=== PATIENT | female | born 1945 | race Caucasian/White ===

== ENCOUNTER 2017-05-06 11:13 | Emergency (ER) | payer BC, MEDICARE ==
--- NOTE | 2017-05-06 11:38 | ER Document Report ---
ED Medical Screen (RME) - General TRAVEL OUTSIDE OF THE [place] IN LAST 30 DAYS: No <RUSLAN CABRERA - Last Filed: 05/06/17 11:38> <TAMIKA LARA - Last Filed: 05/06/17 14:17> - General Chief Complaint: Breathing Difficulty Stated Complaint: SHORTNESS OF BREATH Time Seen by Provider: 05/06/17 11:29 Notes: 71-year-old female with a known history of COPD who presents with dyspnea. Note patient is not oxygen dependent at home. Patient presents with a room air sat of 80%, wheezing, dyspnea with gradual onset over 2-3 days and some increased cough. Denies any change in the color of her sputum. No fever, chills or sweats. No other modifying factors, no other associated symptoms, no other provocative or palliative factors. No active chest pain. (TAMIKA LARA) - Related Data Allergies/Adverse Reactions: No Known Allergies Allergy (Unverified 05/06/17 11:14) Past Medical History - Social History Frequency of alcohol use: None Drug Abuse: None Renal/ Medical History: Denies: Hx Peritoneal Dialysis <RUSLAN CABRERA - Last Filed: 05/06/17 11:38> - General Information source: Patient - Social History Cigarette use (# per day): Yes Family history: Reviewed & Not Pertinent Pulmonary Medical History: Reports: Hx COPD <TAMIKA LARA - Last Filed: 05/06/17 14:17> Review of Systems <RUSLAN CABRERA - Last Filed: 05/06/17 11:38> <TAMIKA LARA - Last Filed: 05/06/17 14:17> - Review of Systems Notes: Review of systems as in history of present illness otherwise negative (TAMIKA LARA) Physical Exam <RUSLAN CABRERA - Last Filed: 05/06/17 11:38> <TAMIKA LARA - Last Filed: 05/06/17 14:17> - Vital signs Vitals: Temp Pulse Resp BP Pulse Ox 98.4 F 99 24 H 115/74 88 L 05/06/17 11:20 05/06/17 11:20 05/06/17 11:20 05/06/17 11:20 05/06/17 11:20 - Notes Notes: General: Well-developed HEENT: NC/AT, PERRL. No pharyngeal injection. Neck: Supple, no JVD. Chest: Coarse, mildly diminished with slight end expiratory wheezing Cardiac: Regularate and rhythm. no audible murmur. Abdomen:, Nondistended, no guarding rigidity or rebound. Nontender. Back: CVAT, unremarkable. Motor: Normal tone and power. Neurologic: Alert, nonfocal. Skin: Rashes petechiae or purpura. Extremeties: Well perfused, no significant edema. (TAMIKA LARA) Course <RUSLAN CABRERA - Last Filed: 05/06/17 11:38> - Laboratory Result Diagrams: 05/06/17 11:52 05/06/17 11:52 <TAMIKA LARA - Last Filed: 05/06/17 14:17> - Re-evaluation Re-evalutation: Elderly female with a known history of COPD who continues to used to smoke who presents with likely COPD exacerbation, I would be concerned over the potential for underlying pneumonia. She was initially seen in triage, received laboratory evaluation as ordered, bronchodilators and empiric ceftriaxone. Labs reviewed, CBC unremarkable, chemistries unremarkable. Chest x-ray shows no acute pneumonia. Patient had marked improvement with bronchodilators, received IV steroids in triage. At this point she has no evidence of pneumonia, has no change in the color or consistency of your sputum I think this is less likely bacterial bronchitis. Will treat with bronchodilators at home, 5 day course of steroids, outpatient follow-up. Her hypoxia is improved and her room air saturation is 96 %. (TAMIKA LARA) - Vital Signs Vital signs: Temp Pulse Resp BP Pulse Ox 98.4 F 99 28 H 121/69 97 05/06/17 11:20 05/06/17 11:20 05/06/17 13:00 05/06/17 12:12 05/06/17 13:00 - Laboratory Laboratory results interpreted by ca: 05/06/17 05/06/17 11:52 11:52 Hgb 16.9 H Hct 50.0 H Monocytes % 14.0 H Carbon Dioxide 31 H AST 39 H Doctor's Discharge <RUSLAN CABRERA - Last Filed: 05/06/17 11:38> <TAMIKA LARA - Last Filed: 05/06/17 14:17> - Discharge Clinical Impression: COPD exacerbation Condition: Good Disposition: HOME, SELF-CARE Instructions: Chronic Obstructive Lung Disease ([facility]) Prescriptions: Albuterol Sulfate [Proair HFA Inhalation Aerosol 8.5 gm MDI] 2 puff IH Q4H PRN # 1 mdi PRN Reason: Prednisone [Deltasone 20 mg Tablet] 3 tab PO DAILY 5 Days tablet
[2017-05-06] MEDS ORDERED: ALBUTEROL SULFATE 0.083% NEB 2.5 MG/3 ML AMPUL NEB ONE (11:39)
[2017-05-06] MEDS ORDERED: CEFTRIAXONE INJ 1000 MG VIAL IV ONE (11:39)
[2017-05-06] MEDS ORDERED: METHYLPREDNISOLONE INJ 125 MG/2 ML SDV IV ONE (11:39)
[2017-05-06 12:09] LABS: ABSOLUTE LYMPHOCYTES (AUTO) 1.2 10^3/uL (0.5-4.7); ABSOLUTE MONOCYTES (AUTO) 0.7 10^3/uL (0.1-1.4); ABSOLUTE NEUT (AUTO) 3.2 10^3/uL (1.7-8.2); BASOPHILS % (AUTO) 0.5 % (0-2); HEMOGLOBIN 16.9 g/dL (12.0-15.5); LYMPHOCYTES % (AUTO) 23.4 % (13-45); MEAN CORPUSCULAR HEMOGLOBIN 32.4 pg (27.0-33.4); MEAN CORPUSCULAR HGB CONC 33.8 g/dL (32.0-36.0); MEAN CORPUSCULAR VOLUME 96 fl (80-97); PLATELET COUNT 203 10^3/uL (150-450); RED BLOOD COUNT 5.22 10^6/uL (3.72-5.28); RED CELL DISTRIBUTION WIDTH 13.9 % (11.5-14.0); SEGMENTED NEUTROPHILS % (AUTO) 62.1 % (42-78); TOTAL CELLS COUNTED % (AUTO) 100 %; WHITE BLOOD COUNT 5.1 10^3/uL (4.0-10.5)
[2017-05-06 12:42] LABS: ALANINE AMINOTRANSFERASE 30 U/L (9-52); ALBUMIN 4.1 g/dL (3.5-5.0); ALKALINE PHOSPHATASE 102 U/L (38-126); ANION GAP 8 (5-19); ASPARTATE AMINO TRANSFERASE 39 U/L (14-36); BILIRUBIN,DIRECT 0.2 mg/dL (0.0-0.4); BILIRUBIN,TOTAL 0.3 mg/dL (0.2-1.3); BLOOD UREA NITROGEN 12 mg/dL (7-20); CALCIUM 8.9 mg/dL (8.4-10.2); CARBON DIOXIDE 31 mmol/L (22-30); CHLORIDE 101 mmol/L (98-107); CREATINE KINASE 64 U/L (30-135); GLUCOSE 96 mg/dL (75-110); POTASSIUM 4.4 mmol/L (3.6-5.0); SODIUM 139.9 mmol/L (137-145)
[2017-05-06 12:54] LABS: CREATINE KINASE MB 1.32 ng/mL (<4.55); NT PRO BNP 35 pg/mL (5-900)
[2017-05-06 12:58] LABS: TROPONIN I < 0.012 ng/mL
--- NOTE | 2017-05-06 13:07 | EKG REPORT ---
SEVERITY:- ABNORMAL ECG - SINUS RHYTHM RIGHT ATRIAL ABNORMALITY : Confirmed by: Sage Costa MD 06-May-2017 13:06:47
--- NOTE | 2017-05-06 13:18 | RADIOLOGY REPORT (SQ) ---
EXAM DESCRIPTION: CHEST PA/LAT COMPLETED DATE/TIME: 05/06/2017 12:45 pm REASON FOR STUDY: sob COMPARISON: None. EXAM PARAMETERS: NUMBER OF VIEWS: two views TECHNIQUE: Digital Frontal and Lateral radiographic views of the chest acquired. RADIATION DOSE: NA LIMITATIONS: none FINDINGS: LUNGS AND PLEURA: No opacities, masses or pneumothorax. No pleural effusion. MEDIASTINUM AND HILAR STRUCTURES: No masses or contour abnormalities. HEART AND VASCULAR STRUCTURES: Heart normal size. No evidence for failure. BONES: Osteopenia. Mild thoracic spondylosis. HARDWARE: None in the chest. OTHER: No other significant finding. IMPRESSION: NO SIGNIFICANT RADIOGRAPHIC FINDING IN THE CHEST. TECHNICAL DOCUMENTATION: JOB ID: [id number] [employer]- All Rights Reserved Reading location - IP/workstation name: [email or web address]
[2017-05-06 14:30] VITALS: BP 120/72
== END 2017-05-06 14:43 | disposition home or self-care (01) ==
LOC: ER 11:13
DX: J44.1 Chronic obstructive pulmonary disease with (acute) exacerbation (principal); Z99.81 Dependence on supplemental oxygen; R05 Cough; R06.02 Shortness of breath; Z72.0 Tobacco use
CPT/HCPCS: 93005; 94640; 99285; 96375; 96365; 36415; 87040; 82553; 82550; 85025; 80053; 84484; 83880; 71046; 93010; J2930; J0696

== ENCOUNTER 2017-05-10 10:56 | Inpatient (IN) | payer BC, MEDICARE ==
[2017-05-10] MEDS ORDERED: ALBUTEROL SULFATE 0.083% NEB 2.5 MG/3 ML AMPUL NEB ONE (11:08)
[2017-05-10] MEDS ORDERED: METHYLPREDNISOLONE INJ 125 MG/2 ML SDV IV ONE ×2 (11:08→13:51)
[2017-05-10] MEDS ORDERED: IPRATROPIUM/ALBUTEROL 0.5-2.5 MG/3 ML AMPUL NEB ONE ×2 (11:08→16:30)
[2017-05-10] MEDS ORDERED: MAGNESIUM SULFATE/D5W 1 GM/100 ML RTUPB IV ONE (11:08)
--- NOTE | 2017-05-10 11:09 | ER Document Report ---
ED Medical Screen (RME) - General Chief Complaint: Shortness Of Breath Stated Complaint: SHORTNESS OF BREATH Time Seen by Provider: 05/10/17 11:07 TRAVEL OUTSIDE OF THE [place] IN LAST 30 DAYS: No - HPI Notes: 05/10/17 11:08 Patient seen recently has a history of smoking states nonproductive cough not getting better increased shortness of breath has been compliant with medication regimen. No PCP - Related Data Allergies/Adverse Reactions: No Known Allergies Allergy (Verified 05/10/17 10:58) Past Medical History - Social History Chew tobacco use (# tins/day): No Frequency of alcohol use: Rare Drug Abuse: None Family history: Reviewed & Not Pertinent Pulmonary Medical History: Reports: Hx COPD Renal/ Medical History: Denies: Hx Peritoneal Dialysis Review of Systems - Review of Systems Respiratory: Cough, Short of breath Physical Exam - Vital signs Vitals: Temp Pulse Resp BP Pulse Ox 97.7 F 75 24 H 142/72 H 90 L 05/10/17 11:03 05/10/17 11:03 05/10/17 11:03 05/10/17 11:03 05/10/17 11:03 Interpretation: Hypoxic - Respiratory Breath sounds: Wheezing - Coarse wheezing throughout slight hypoxia SPO2 on room air 88 placed on oxygen and harming Course - Re-evaluation Re-evalutation: 05/10/17 11:09 Placed on oxygen will have the patient go to the main side for further evaluation. Laboratory studies have been ordered breathing treatments magnesium Solu-Medrol. Patient denies any chest pain at this time - Vital Signs Vital signs: Temp Pulse Resp BP Pulse Ox 97.7 F 75 24 H 142/72 H 90 L 05/10/17 11:03 05/10/17 11:03 05/10/17 11:03 05/10/17 11:03 05/10/17 11:03
[2017-05-10 11:22] LABS: VENOUS BLOOD BASE EXCESS -1.1 mmol/L; VENOUS BLOOD PH 7.41 (7.30-7.42)
[2017-05-10 11:23] LABS: ABSOLUTE LYMPHOCYTES (AUTO) 1.5 10^3/uL (0.5-4.7); BASOPHILS % (AUTO) 0.2 % (0-2); HEMATOCRIT 49.7 % (36.0-47.0); HEMOGLOBIN 16.9 g/dL (12.0-15.5); LYMPHOCYTES % (AUTO) 12.8 % (13-45); MEAN CORPUSCULAR HEMOGLOBIN 32.2 pg (27.0-33.4); MEAN CORPUSCULAR HGB CONC 33.9 g/dL (32.0-36.0); MEAN CORPUSCULAR VOLUME 95 fl (80-97); MONOCYTES % (AUTO) 8.9 % (3-13); PLATELET COUNT 300 10^3/uL (150-450); RED BLOOD COUNT 5.24 10^6/uL (3.72-5.28); RED CELL DISTRIBUTION WIDTH 13.8 % (11.5-14.0); SEGMENTED NEUTROPHILS % (AUTO) 78.1 % (42-78); TOTAL CELLS COUNTED % (AUTO) 100 %; WHITE BLOOD COUNT 11.5 10^3/uL (4.0-10.5)
[2017-05-10 11:30] LABS: INTERNATIONAL RATION (INR) 0.85; PROTHROMBIN TIME 12.2 SEC (11.4-15.4)
[2017-05-10 11:47] LABS: ALANINE AMINOTRANSFERASE 87 U/L (9-52); ALBUMIN 4.1 g/dL (3.5-5.0); ALKALINE PHOSPHATASE 95 U/L (38-126); ANION GAP 11 (5-19); ASPARTATE AMINO TRANSFERASE 44 U/L (14-36); BILIRUBIN,DIRECT 0.2 mg/dL (0.0-0.4); BILIRUBIN,TOTAL 0.6 mg/dL (0.2-1.3); BLOOD UREA NITROGEN 20 mg/dL (7-20); CALCIUM 9.2 mg/dL (8.4-10.2); CARBON DIOXIDE 28 mmol/L (22-30); CHLORIDE 103 mmol/L (98-107); CREATINE KINASE 122 U/L (30-135); GLUCOSE 107 mg/dL (75-110); LIPASE 63.2 U/L (23-300)
--- NOTE | 2017-05-10 11:48 | RADIOLOGY REPORT (SQ) ---
EXAM DESCRIPTION: CHEST SINGLE VIEW COMPLETED DATE/TIME: 05/10/2017 11:35 am REASON FOR STUDY: sob hypoxia COMPARISON: Two-view chest 05/06/2017 EXAM PARAMETERS: NUMBER OF VIEWS: One view. TECHNIQUE: Single frontal radiographic view of the chest acquired. RADIATION DOSE: NA LIMITATIONS: None. FINDINGS: LUNGS AND PLEURA: Hyperinflated and hyperlucent from obstructive disease with stable right apical scarring. No focal infiltrates. No pleural effusion. No pneumothorax. MEDIASTINUM AND HILAR STRUCTURES: No masses. Contour normal. HEART AND VASCULAR STRUCTURES: Heart normal in size. Normal vasculature. BONES: No acute findings. HARDWARE: None in the chest. OTHER: No other significant finding. IMPRESSION: Obstructive lung disease. No acute findings TECHNICAL DOCUMENTATION: JOB ID: [id number] [employer]- All Rights Reserved Reading location - IP/workstation name: [email or web address]
--- NOTE | 2017-05-10 12:05 | ER Document Report ---
ED General - General Chief Complaint: Shortness Of Breath Stated Complaint: SHORTNESS OF BREATH Time Seen by Provider: 05/10/17 11:07 Mode of Arrival: Ambulatory Information source: Patient, Relative Notes: 71-year-old female with a history of COPD who continues to smoke presents for the second time this week with complaint of cough and shortness of breath that has not improved with albuterol and prednisone. Patient states that she now has a productive cough and worsening shortness of breath over the last few days. She also complains of chills and subjective fever at home. TRAVEL OUTSIDE OF THE [place] IN LAST 30 DAYS: No - Related Data Allergies/Adverse Reactions: No Known Allergies Allergy (Verified 05/10/17 10:58) Past Medical History - General Information source: Patient - Social History Smoking Status: Never Smoker Chew tobacco use (# tins/day): No Frequency of alcohol use: Rare Drug Abuse: None Lives with: Spouse/Significant other Family History: Reviewed & Not Pertinent Patient has suicidal ideation: No Patient has homicidal ideation: No Pulmonary Medical History: Reports: Hx COPD Renal/ Medical History: Denies: Hx Peritoneal Dialysis Review of Systems - Review of Systems Constitutional: Fever Cardiovascular: Palpitations, Dyspnea. denies: Chest pain Respiratory: Cough, Short of breath, Wheezing Gastrointestinal: denies: Abdominal pain, Diarrhea, Nausea Genitourinary: denies: Dysuria Musculoskeletal: Muscle pain Skin: No symptoms reported Hematologic/Lymphatic: No symptoms reported Neurological/Psychological: denies: Confusion, Weakness Physical Exam - Vital signs Vitals: Temp Pulse Resp BP Pulse Ox 97.7 F 75 24 H 142/72 H 90 L 05/10/17 11:03 05/10/17 11:03 05/10/17 11:03 05/10/17 11:03 05/10/17 11:03 Interpretation: Normal, Hypoxic, Tachypneic - General General appearance: Appears well, Alert - HEENT Head: Normocephalic, Atraumatic Eyes: Normal Extraocular movements intact: Yes Pupils: PERRL Ears: Normal Tympanic membrane: Normal Sinus: Normal Neck: No: Carotid bruit - Respiratory Respiratory status: Respiratory distress, Tachypnea. No: Tripod position Chest status: Accessory muscle use Breath sounds: Productive cough, Wheezing - Cardiovascular Rhythm: Regular Heart sounds: Normal auscultation Murmur: No Pulses: Normal: Radial, Posterior tibial - Abdominal Inspection: Normal Distension: No distension Bowel sounds: Normal Tenderness: Nontender Organomegaly: No organomegaly - Back Back: Normal, Nontender - Extremities General upper extremity: Normal inspection, Nontender, Normal color, Normal ROM , Normal temperature. No: Edema General lower extremity: Normal inspection, Nontender, Normal color, Normal ROM , Normal temperature, Normal weight bearing. No: Edema, Juan Ulis's sign Calf: Normal - Neurological Neuro grossly intact: Yes Cognition: Normal Orientation: AAOx4 Ebro Coma Scale Eye Opening: Spontaneous Gayatri Coma Scale Verbal: Oriented Gayatri Coma Scale Motor: Obeys Commands Ebro Coma Scale Total: 15 Speech: Normal Cranial nerves: Normal Cerebellar coordination: No: Gait ataxia Motor strength normal: LUE, RUE, LLE, RLE Sensory: Normal - Psychological Associated symptoms: Normal affect, Normal mood - Skin Skin Temperature: Warm Skin Moisture: Dry Skin Color: Normal Course - Re-evaluation Re-evalutation: Chest X-Ray 05/10/17 11:07 IMPRESSION: Obstructive lung disease. No acute findings Laboratory 05/10/17 05/10/17 05/10/17 11:10 11:10 11:10 WBC 11.5 H RBC 5.24 Hgb 16.9 H Hct 49.7 H MCV 95 MCH 32.2 MCHC 33.9 RDW 13.8 Plt Count 300 Seg Neutrophils % 78.1 H Lymphocytes % 12.8 L Monocytes % 8.9 Eosinophils % 0.0 Basophils % 0.2 Absolute Neutrophils 9.0 H Absolute Lymphocytes 1.5 Absolute Monocytes 1.0 Absolute Eosinophils 0.0 Absolute Basophils 0.0 PT 12.2 INR 0.85 VBG pH VBG pCO2 VBG HCO3 VBG Base Excess Sodium 142.0 Potassium 4.0 Chloride 103 Carbon Dioxide 28 Anion Gap 11 BUN 20 Creatinine 0.68 Est GFR ( Amer) > 60 Est GFR (Non-Af Amer) > 60 Glucose 107 Calcium 9.2 Magnesium 2.2 Total Bilirubin 0.6 Direct Bilirubin 0.2 Neonat Total Bilirubin Not Reportable Neonat Direct Bilirubin Not Reportable Neonat Indirect Bili Not Reportable AST 44 H ALT 87 H Alkaline Phosphatase 95 Creatine Kinase 122 CK-MB (CK-2) Troponin I NT-Pro-B Natriuret Pep Total Protein 7.0 Albumin 4.1 Lipase 63.2 05/10/17 05/10/17 11:10 11:10 WBC RBC Hgb Hct MCV MCH MCHC RDW Plt Count Seg Neutrophils % Lymphocytes % Monocytes % Eosinophils % Basophils % Absolute Neutrophils Absolute Lymphocytes Absolute Monocytes Absolute Eosinophils Absolute Basophils PT INR VBG pH 7.41 VBG pCO2 37.0 VBG HCO3 23.0 VBG Base Excess -1.1 Sodium Potassium Chloride Carbon Dioxide Anion Gap BUN Creatinine Est GFR ( Amer) Est GFR (Non-Af Amer) Glucose Calcium Magnesium Total Bilirubin Direct Bilirubin Neonat Total Bilirubin Neonat Direct Bilirubin Neonat Indirect Bili AST ALT Alkaline Phosphatase Creatine Kinase CK-MB (CK-2) 1.81 Troponin I < 0.012 NT-Pro-B Natriuret Pep 160 Total Protein Albumin Lipase 05/10/17 14:16 71-year-old female with a history of COPD who continues to smoke presents for the second time this week with complaint of cough and shortness of breath that has not improved with albuterol and prednisone. Vital signs reviewed upon arrival. Patient is hypoxic, tachypneic. patient was placed on 2L NC and had improvement of oxygenation. Patient received breathing treatments, Solu-Medrol , doxycycline. We did attempt to ambulate the patient on room air and she had an immediate desaturation to 86%. X-ray shows obstructive lung disease. Patient does have an increase in her white count today of 11.5 up from 5.6. Spoke to the hospitalist who is requesting an ABG. Has failed outpatient therapy and will be admitted. - Vital Signs Vital signs: Temp Pulse Resp BP Pulse Ox 97.7 F 75 24 H 142/72 H 92 05/10/17 11:03 05/10/17 11:03 05/10/17 11:03 05/10/17 11:03 05/10/17 11:23 - Laboratory Result Diagrams: 05/10/17 11:10 05/10/17 11:10 Laboratory results interpreted by me: 05/10/17 05/10/17 11:10 11:10 WBC 11.5 H Hgb 16.9 H Hct 49.7 H Seg Neutrophils % 78.1 H Lymphocytes % 12.8 L Absolute Neutrophils 9.0 H AST 44 H ALT 87 H - Diagnostic Test Radiology reviewed: Image reviewed, Reports reviewed - EKG Interpretation by Me EKG shows normal: Sinus rhythm Rate: Normal Rhythm: NSR Discharge - Discharge Clinical Impression: COPD exacerbation, Hypoxia, Cough Condition: Fair Disposition: ADMITTED INPATIENT Admitting Provider: Hospitalist Unit Admitted: Telemetry
[2017-05-10 12:11] LABS: CREATINE KINASE MB 1.81 ng/mL (<4.55); NT PRO BNP 160 pg/mL (5-900)
[2017-05-10 12:13] LABS: TROPONIN I < 0.012 ng/mL
--- NOTE | 2017-05-10 15:12 | PDOC H&P ---
History of Present Illness History of Present Illness: NAN ALMEIDA is a 71 year old female who presented with 3 days history of cough, shortness of breath and mild chest discomfort. Patient is a known case of COPD and active heavy smoker. Patient presented for the same problem about 4 days ago to [facility] where she was given prednisone and albuterol sulfate and sent home. Patient reported no improvement with this management and she showed up again. At the ER patient was given a dose of bruising treatment, doxycycline and Solu-Medrol. She was put on 2 L of oxygen via nasal cannula and her shortness of breath is relatively subsided. The ER physician plan to discharge the patient if she tolerates ambulating on room air but when the patient tried to ambulate on room air she precipitously desaturated to 86%. At this point the ER attending contacted the hospitalist service for inpatient admission and treatment. Patient denied any history of palpitation, diaphoresis, nausea, vomiting, abdominal pain or any urinary complaints. No headache, dizziness, blurry vision or any seizure activity. Past Medical History Pulmonary Medical History: Reports: Chronic Obstructive Pulmonary Disease (COPD) Past Surgical History Past Surgical History: Reports: Other - Cataract surgery Social History Lives with: Spouse/Significant other Smoking Status: Current Every Day Smoker - Patient smokes a pack a day Family History Family History: Reviewed & Not Pertinent, Arthritis Parental Family History Reviewed: Yes Children Family History Reviewed: Yes Sibling(s) Family History Reviewed.: Yes Medication/Allergy Home Medications: Prednisone [Deltasone 20 mg Tablet] 3 tab PO DAILY 5 Days tablet 05/06/17 Albuterol Sulfate [Proair HFA Inhalation Aerosol 8.5 gm MDI] 2 puff IH Q4H PRN 05/10/17 Aspirin [Aspirin EC] 81 mg PO DAILY 05/10/17 Allergies/Adverse Reactions: No Known Allergies Allergy (Verified 05/10/17 10:58) Review of Systems Constitutional: ABSENT: as per HPI, anorexia, chills, fatigue, fever(s), headache(s), night sweats, weakness, weight gain, weight loss, other Cardiovascular: PRESENT: chest pain - Mild chest discomfort Respiratory: PRESENT: cough, dyspnea Physical Exam Vital Signs: Temp Pulse Resp BP Pulse Ox 97.7 F 75 24 H 142/72 H 92 05/10/17 11:03 05/10/17 11:03 05/10/17 11:03 05/10/17 11:03 05/10/17 11:23 Intake & Output 05/09/17 05/10/17 05/11/17 06:59 06:59 06:59 Weight 68.5 kg General appearance: PRESENT: cooperative, mild distress Head exam: PRESENT: atraumatic Eye exam: PRESENT: conjunctiva pink Mouth exam: PRESENT: moist Respiratory exam: PRESENT: wheezes - She has bilateral diffuse wheezing Pulses: PRESENT: normal carotid pulses GI/Abdominal exam: ABSENT: ascites, diminished bowel sounds, distended, firm, guarding, hernia, hyperactive bowel sounds, hypoactive bowel sounds, mass, Ferrari's sign, normal bowel sounds, organolmegaly, rebound, rigid, soft, tenderness, other Neurological exam: PRESENT: alert, awake, oriented to time, oriented to situation Psychiatric exam: PRESENT: normal mood Skin exam: PRESENT: dry, normal color Results Laboratory Results: 05/10/17 11:10 05/10/17 11:10 05/10/17 05/10/17 05/10/17 11:10 11:10 11:10 WBC 11.5 H RBC 5.24 Hgb 16.9 H Hct 49.7 H MCV 95 MCH 32.2 MCHC 33.9 RDW 13.8 Plt Count 300 Seg Neutrophils % 78.1 H Lymphocytes % 12.8 L Monocytes % 8.9 Eosinophils % 0.0 Basophils % 0.2 Absolute Neutrophils 9.0 H Absolute Lymphocytes 1.5 Absolute Monocytes 1.0 Absolute Eosinophils 0.0 Absolute Basophils 0.0 VBG pH 7.41 VBG pCO2 37.0 VBG HCO3 23.0 VBG Base Excess -1.1 Sodium 142.0 Potassium 4.0 Chloride 103 Carbon Dioxide 28 Anion Gap 11 BUN 20 Creatinine 0.68 Est GFR ( Amer) > 60 Est GFR (Non-Af Amer) > 60 Glucose 107 Calcium 9.2 Magnesium 2.2 Total Bilirubin 0.6 AST 44 H ALT 87 H Alkaline Phosphatase 95 Total Protein 7.0 Albumin 4.1 Lipase 63.2 05/10/17 05/10/17 11:10 11:10 Creatine Kinase 122 CK-MB (CK-2) 1.81 Troponin I < 0.012 NT-Pro-B Natriuret Pep 160 Impressions: Chest X-Ray 04/02/18 11:07 IMPRESSION: Obstructive lung disease. No acute findings Assessment & Plan - Diagnosis (1) COPD exacerbation Is this a current diagnosis for this admission?: Yes Plan: 1, supplemental oxygen, Solu-Medrol, DuoNeb (2) Cough Is this a current diagnosis for this admission?: Yes Plan: Cough suppressant and incentive spirometry (3) Hypoxia Plan: Supplemental oxygen (4) Nicotine dependence Qualifiers: Nicotine product type: cigarettes Is this a current diagnosis for this admission?: Yes Plan: Patient strongly advised to quit smoking and she voiced agreement. - Time Time Spent: 30 to 50 Minutes Smoking Cessation Education: 3 to 10 minutes Medications reviewed and adjusted accordingly: Yes Anticipated discharge: Home Within: within 72 hours
[2017-05-10 15:25] LABS: ARTERIAL BLOOD BASE EXCESS -2.3 mmol/L; ARTERIAL BLOOD H2CO3 0.97 mmol/L (1.05-1.35); ARTERIAL BLOOD HCO3 20.8 mmol/L (20-26); ARTERIAL BLOOD O2 SATURATION 95.6 % (94-98); ARTERIAL BLOOD PCO2 32.1 mmHg (35-45); ARTERIAL BLOOD PH 7.43 (7.35-7.45); ARTERIAL BLOOD PO2 75.3 mmHg (80-100); ARTERIAL BLOOD TOTAL CO2 21.8 mmol/L (21-25)
[2017-05-10 15:26] LABS: ARTERIAL BLOOD FIO2 2L
[2017-05-10] MEDS: METHYLPREDNISOLONE INJ 40 MG/1 ML SDV IV SCH (18:02)
[2017-05-10] MEDS: AZITHROMYCIN 500 MG in DEXTROSE 5%-WATER 250 ML IV SCH (18:02)
--- NOTE | 2017-05-10 19:18 | EKG REPORT ---
SEVERITY:- ABNORMAL ECG - SINUS RHYTHM RAA, CONSIDER BIATRIAL ABNORMALITIES : Confirmed by: Makayla Shirley 10-May-2017 19:18:00
[2017-05-11] MEDS: METHYLPREDNISOLONE INJ 40 MG/1 ML SDV IV SCH ×3 (00:26→17:20)
[2017-05-11] MEDS: HEPARIN SOD (PORCINE) 5,000 UNIT/ML 1 ML SYRINGE SUBCUT SCH ×4 (00:26→22:25)
[2017-05-11] MEDS: ASPIRIN 81 MG TABLET, ENT COATED PO SCH (09:03)
[2017-05-11 15:15] LABS: HEMATOCRIT 48.1 % (36.0-47.0); HEMOGLOBIN 16.4 g/dL (12.0-15.5); MEAN CORPUSCULAR HEMOGLOBIN 32.5 pg (27.0-33.4); MEAN CORPUSCULAR VOLUME 96 fl (80-97); PLATELET COUNT 331 10^3/uL (150-450); RED BLOOD COUNT 5.04 10^6/uL (3.72-5.28); RED CELL DISTRIBUTION WIDTH 14.1 % (11.5-14.0)
[2017-05-11 16:31] LABS: ANION GAP 12 (5-19); BLOOD UREA NITROGEN 26 mg/dL (7-20); CALCIUM 8.9 mg/dL (8.4-10.2); CARBON DIOXIDE 20 mmol/L (22-30); CHLORIDE 107 mmol/L (98-107); GLUCOSE 163 mg/dL (75-110); POTASSIUM 4.2 mmol/L (3.6-5.0); SODIUM 138.9 mmol/L (137-145)
[2017-05-11] MEDS: AZITHROMYCIN 500 MG in DEXTROSE 5%-WATER 250 ML IV SCH (17:20)
--- NOTE | 2017-05-12 02:37 | PDOC PROGRESS REPORT ---
Subjective Progress Note for:: 05/11/17 Subjective:: Refers that breathing is better Reason For Visit: CHRONIC OBSTRUCTIVE PULMONARY DISEASE EXACERBATION Physical Exam Vital Signs: Temp Pulse Resp BP Pulse Ox 97.4 F 74 16 113/61 94 05/10/17 19:40 05/11/17 02:00 05/10/17 19:40 05/10/17 19:40 05/10/17 19:40 Intake & Output 05/10/17 05/11/17 05/12/17 06:59 06:59 06:59 Intake Total 674 Balance 674 Weight 69.2 kg General appearance: PRESENT: no acute distress, cooperative, well-developed, well-nourished Head exam: PRESENT: atraumatic, normocephalic Eye exam: PRESENT: conjunctiva pink, EOMI, PERRLA Neck exam: PRESENT: full ROM. ABSENT: JVD, lymphadenopathy, tenderness Respiratory exam: PRESENT: clear to auscultation mayra Cardiovascular exam: PRESENT: RRR. ABSENT: diastolic murmur, systolic murmur GI/Abdominal exam: PRESENT: normal bowel sounds, soft. ABSENT: tenderness Extremities exam: PRESENT: full ROM. ABSENT: pedal edema Musculoskeletal exam: PRESENT: ambulatory Neurological exam: PRESENT: alert, awake, oriented to person, oriented to place , oriented to time, oriented to situation, CN II-XII grossly intact Psychiatric exam: PRESENT: appropriate affect, normal mood Skin exam: PRESENT: normal color Results Laboratory Results: 05/10/17 16:25 Troponin I < 0.012 Impressions: Chest X-Ray 05/10/17 11:07 IMPRESSION: Obstructive lung disease. No acute findings Assessment & Plan - Diagnosis (1) COPD exacerbation Is this a current diagnosis for this admission?: Yes Plan: Continue present treatment (2) Hypoxia Is this a current diagnosis for this admission?: Yes Plan: Wean off oxygen as tolerated (3) Nicotine dependence Qualifiers: Nicotine product type: cigarettes Is this a current diagnosis for this admission?: Yes Plan: Educated about quitting - Time Time Spent with patient: 15-24 minutes Medications reviewed and adjusted accordingly: Yes Anticipated discharge: Home Within: within 24 hours - Inpatient Certification Based on my medical assessment, after consideration of the patient's comorbidities, presenting symptoms, or acuity I expect that the services needed warrant INPATIENT care.: Yes I certify that my determination is in accordance with my understanding of Medicare's requirements for reasonable and necessary INPATIENT services [42 CFR 412.3e].: Yes Medical Necessity: Need Close Monitoring Due to Risk of Patient Decompensation, Need for Nebulizer Therapy and Monitoring of Response
[2017-05-12] MEDS ORDERED: IPRATROPIUM/ALBUTEROL 0.5-2.5 MG/3 ML AMPUL NEB PRN (02:38)
[2017-05-12] MEDS: HEPARIN SOD (PORCINE) 5,000 UNIT/ML 1 ML SYRINGE SUBCUT SCH ×2 (06:16→13:44)
[2017-05-12] MEDS: ASPIRIN 81 MG TABLET, ENT COATED PO SCH (09:30)
[2017-05-12] MEDS ORDERED: FLUTICASONE/SALMETEROL DISKUS 500-50 MCG/DOSE IH SCH (10:00)
[2017-05-12] MEDS ORDERED: AZITHROMYCIN 250 MG TABLET PO SCH (10:00)
[2017-05-12 13:42] VITALS: BP 123/68
--- NOTE | 2017-05-13 06:37 | PDOC DISCHARGE SUMMARY ---
General - Admit/Disc Date/PCP Admission Date/Primary Care Provider: 05/10/17 15:24 Discharge Date: 05/12/17 - Discharge Diagnosis (1) COPD exacerbation Is this a current diagnosis for this admission?: Yes (2) Hypoxia Is this a current diagnosis for this admission?: Yes (3) Nicotine dependence Is this a current diagnosis for this admission?: Yes - Additional Information Resuscitation Status: Full Code Discharge Diet: Cardiac Discharge Activity: Activity As Tolerated Prescriptions: Azithromycin [Zithromax 250 mg Tablet] 500 mg PO DAILY #6 tablet Fluticasone/Salmeterol [Advair 500-50 Diskus 14 Dose/Diskus] 1 inh IH Q12 #1 inhaler Tiotropium Cordova [Spiriva Handihaler 18 mcg/dose (30 Dose)] 1 cap IH DAILY # 30 capsule Home Medications: Prednisone [Deltasone 20 mg Tablet] 3 tab PO DAILY 5 Days tablet 05/06/17 Albuterol Sulfate [Proair HFA Inhalation Aerosol 8.5 gm MDI] 2 puff IH Q4H PRN 05/10/17 Aspirin [Aspirin EC] 81 mg PO DAILY 05/10/17 Azithromycin [Zithromax 250 mg Tablet] 500 mg PO DAILY #6 tablet 05/12/17 Fluticasone/Salmeterol [Advair 500-50 Diskus 14 Dose/Diskus] 1 inh IH Q12 #1 inhaler 05/12/17 Tiotropium Cordova [Spiriva Handihaler 18 mcg/dose (30 Dose)] 1 cap IH DAILY # 30 capsule 05/12/17 History of Present Illness History of Present Illness: NAN ALMEIDA is a 71 year old female who presented with 3 days history of cough, shortness of breath and mild chest discomfort. Patient is a known case of COPD and active heavy smoker. Patient presented for the same problem about 4 days ago to [facility] where she was given prednisone and albuterol sulfate and sent home. Patient reported no improvement with this management and she showed up again. At the ER patient was given a dose of breathing treatment, doxycycline and Solu-Medrol. She was put on 2 L of oxygen via nasal cannula and her shortness of breath relatively subsided. The ER physician planned to discharge the patient if she tolerated ambulating on room air but when the patient tried to ambulate on room air she precipitously desaturated to 86%. At this point the ER attending contacted the hospitalist service for inpatient admission and treatment. Patient denied any history of palpitation, diaphoresis, nausea, vomiting, abdominal pain or any urinary complaints. No headache, dizziness, blurry vision or any seizure activity. Hospital Course Hospital Course: Patient was placed on steroids, nebulizer treatment and Zithromax with further improvement. However, upon ambulation patient persisted desaturating. Patient overall condition was good however her major issue was desaturation. We opted to send patient home with oxygen. She was strongly advised against persistent smoking. Arrangements were made for her to follow-up with Dr. Elizabeth. She was also made aware need to follow-up as her oxygen needs may change and actually there is a possibility of improvement but she needed to abstain from smoking. Since she had achieved maximum benefit of hospitalization stay prompted to discharge under stable condition Physical Exam Vital Signs: Temp Pulse Resp BP Pulse Ox 97.4 F 71 14 112/71 92 05/12/17 07:59 05/12/17 07:59 05/12/17 07:59 05/12/17 07:59 05/12/17 07:59 Intake & Output 05/11/17 05/12/17 05/13/17 06:59 06:59 06:59 Intake Total 674 1175 Balance 674 1175 Weight 69.2 kg 68.2 kg General appearance: PRESENT: no acute distress, cooperative, well-developed, well-nourished Head exam: PRESENT: atraumatic, normocephalic Eye exam: PRESENT: conjunctiva pink, EOMI, PERRLA Mouth exam: PRESENT: moist Neck exam: PRESENT: full ROM. ABSENT: JVD, lymphadenopathy, tenderness Respiratory exam: PRESENT: clear to auscultation mayra Cardiovascular exam: PRESENT: RRR. ABSENT: diastolic murmur, systolic murmur GI/Abdominal exam: PRESENT: normal bowel sounds, soft. ABSENT: tenderness Extremities exam: PRESENT: full ROM. ABSENT: pedal edema Musculoskeletal exam: PRESENT: ambulatory Neurological exam: PRESENT: alert, awake, oriented to person, oriented to place , oriented to time, oriented to situation, CN II-XII grossly intact Psychiatric exam: PRESENT: appropriate affect, normal mood Skin exam: PRESENT: intact, normal color Results Laboratory Results: 05/11/17 15:00 05/11/17 16:09 05/11/17 05/11/17 05/11/17 15:00 15:00 16:09 WBC 16.0 H RBC 5.04 Hgb 16.4 H Hct 48.1 H MCV 96 MCH 32.5 MCHC 34.0 RDW 14.1 H Plt Count 331 Sodium Cancelled 138.9 Potassium Cancelled 4.2 Chloride Cancelled 107 Carbon Dioxide Cancelled 20 L Anion Gap Cancelled 12 BUN Cancelled 26 H Creatinine Cancelled 0.79 Est GFR ( Amer) Cancelled > 60 Est GFR (Non-Af Amer) Cancelled > 60 Glucose Cancelled 163 H Calcium Cancelled 8.9 05/10/17 16:25 Troponin I < 0.012 Impressions: Chest X-Ray 05/10/17 11:07 IMPRESSION: Obstructive lung disease. No acute findings Qualifiers - * PATEINT BEING DISCHARGED WITH ANY OF THE FOLLOWING DIAGNOSIS?: No Plan Discharge Plan: Discharge home and follow-up with PCP Time Spent: Less than 30 Minutes
== END 2017-05-12 17:35 | disposition home or self-care (01) | DRG 192 ==
LOC: ER 10:56 → EH 15:24 → 3W 17:28
PROVIDERS: ADMIT Internal Medicine; ATTEND Internal Medicine
DX: J44.1 Chronic obstructive pulmonary disease with (acute) exacerbation (principal); F17.210 Nicotine dependence, cigarettes, uncomplicated; R09.02 Hypoxemia
CPT/HCPCS: 36415; 36600; 71045; 80048; 80053; 82550; 82553; 82803; 83690; 83735; 83880; 84484; 85025; 85027; 85610; 87040; 93005; 93010; 99285; J0456; J1644; J2920; J2930; J3475; J3490; J7060; J7620

== ENCOUNTER → 2017-12-27 | Outpatient (CLI) | payer BC, MEDICARE ==
--- NOTE | 2017-12-27 16:36 | WOMENS IMAGING REPORT ---
EXAM DESCRIPTION: 3D SCREENING MAMMO BILAT COMPLETED DATE/TIME: 12/27/2017 9:29 am REASON FOR STUDY: SCREENING MAMMO Z12.31 ENCNTR SCREEN MAMMOGRAM FOR MALIGNANT NEOPLASM OF REJI COMPARISON: None. TECHNIQUE: Standard craniocaudal and mediolateral oblique views of each breast recorded using digita l acquisition and breast tomosynthesis. LIMITATIONS: None. FINDINGS: RIGHT BREAST MASSES: No suspicious masses. CALCIFICATIONS: No new or suspicious calcifications. ARCHITECTURAL DISTORTION: None. DEVELOPING DENSITY: None. ASYMMETRY: None noted. OTHER: No other significant findings. LEFT BREAST MASSES: Slightly lobulated mass in the deep breast, seen on the MLO view only, located 7.5 cm from th e nipple. CALCIFICATIONS: No new or suspicious calcifications. ARCHITECTURAL DISTORTION: None. DEVELOPING DENSITY: None. ASYMMETRY: None noted. OTHER: No other significant findings. Read with the assistance of CAD. .[facility] - R2 Cenova Version 1.3 .[facility] Imaging - R2 Cenova Version 1.3 .[facility] - R2 Cenova Version 2.4 .[facility] [place] R2 Cenova Version 2.4 .[facility] - R2 C[employer]on Molding Machine Operator Version 9.2 IMPRESSION: Slightly lobulated mass in the deep left breast. No worrisome mammographic findings in the right breast. BREAST DENSITY: c. The breasts are heterogeneously dense, which may obscure small masses. BIRAD: 0 Incomplete: Needs Additional Imaging Evaluation and/or prior Mammograms for Comparison. RECOMMENDATION: RECOMMENDED FOLLOW-UP: Recommend additional evaluation with breast tomosynthesis (pr eferred) or compression views of the left breast and ultrasound of the left breast. Recommend routin e screening mammography of the right breast. The patient will be contacted for additional imaging. COMMENT: The patient has been notified of the results by letter per [place] requirements. Additional no tification policies are in place for contacting patient with suspicious or incomplete findings. Quality ID #[id number]: The [employer] recommends an annual screening mammogram for women aged 40 years or over. This facility utilizes a reminder system to ensure that all patients receive reminder letters, and/or direct phone calls for appointments. This includes reminders for routine scr eening mammograms, diagnostic mammograms, or other Breast Imaging Interventions when appropriate. Th is patient will be placed in the appropriate reminder system. The [employer] (ACR) has developed recommendations for screening MRI of the breast s in certain patient populations, to be used in conjunction with mammography. Breast MRI surveillanc e may be appropriate for women with more than 20% lifetime risk of developing breast cancer as deter mined by genetic testing, significant family history of the disease, or history of mantle radiation f or Hodgkins Disease. ACR Practice Guidelines 2008. DBT Technology DBT is a type of tomographic mammography. With conventional mammography, overlapping breast tissue ma y make lesions difficult to detect, even with good compression. DBT uses an x-ray tube that rotates a round the breast, taking images at different angles. These images are then combined to create thin sl ices of the breast that the radiologist can view as a 3D reconstruction. The [employer] unit can perform full-field digital mammograms (2D imaging); or DBT (3D imaging); or both, in a combination mode that quickly performs both the mammogram and the tomosynthesis scan while the breast is still compressed. RS 6045F: Fluoroscopic imaging is not utilized for breast tomosynthesis. TECHNICAL DOCUMENTATION: FINDING NUMBER: (1) ASSESSMENT: (1) JOB ID: [id number] [employer]- All Rights Reserved Reading location - IP/workstation name: [email or web address]
== END ==
LOC: WI 09:04
PROVIDERS: ATTEND Internal Medicine
DX: Z12.31 Encounter for screening mammogram for malignant neoplasm of breast (principal); N63.10 Unspecified lump in the right breast, unspecified quadrant
CPT/HCPCS: 77063; 77067

== ENCOUNTER → 2018-01-12 | Outpatient (CLI) | payer BC, MEDICARE ==
--- NOTE | 2018-01-12 13:35 | WOMENS IMAGING REPORT ---
EXAM DESCRIPTION: LEFT DIAGNOSTIC MAMMO W/CAD; U/S BREAST UNILAT LIMITED COMPLETED DATE/TIME: 01/12/2018 10:35 am; 01/12/2018 12:46 pm REASON FOR STUDY: R92.2 LEFT BREAST MASS; LT BREAST R92.2 R92.2 INCONCLUSIVE MAMMOGRAM COMPARISON: Mammography 12/17/2017 TECHNIQUE: Cone compression craniocaudal and mediolateral oblique images of the breast recorded with digital acquisition. Additional left breast exaggerated craniocaudad view and 90 mediolateral view. Left breast ultrasound was also performed LIMITATIONS: None. FINDINGS: BREAST: Left MASSES: In the far deep upper outer quadrant, a 1.7 x 1 cm mammographic nodule persists on today's co ne compression views. CALCIFICATIONS: No new or suspicious calcifications. ARCHITECTURAL DISTORTION: None. DEVELOPING DENSITY: None. ASYMMETRY: None noted. OTHER: No other significant findings. Read with the assistance of CAD. .[facility] - R2 Cenova Version 1.3 .[facility] Imaging - R2 Cenova Version 1.3 .[facility] Imaging - R2 Cenova Version 2.4 .[facility] - R2 Cenova Version 2.4 .[facility] - R2 Shingle Shearing Machine Operator Version 9.2 Left breast ultrasound: Ultrasound of the far upper outer quadrant 2 o'clock position demonstrates a well-circumscribed hypoe choic solid nodule with acoustic through transmission measuring 1.6 x 1 cm in size. This most likely represents a fibroadenoma. Malignancy could not entirely be excluded, ultrasound-guided core biopsy with post biopsy clip placement and follow-up two-view mammogram is recommended. IMPRESSION: Solid nodule left breast upper outer quadrant 1.7 x 1 cm in size. Indeterminate for mal ignancy. Ultrasound-guided core biopsy with post biopsy clip placement and follow-up two-view mammog richard recommended BREAST DENSITY: c. The breasts are heterogeneously dense, which may obscure small masses. BIRAD: 4 Suspicious. Biopsy should be considered. RECOMMENDATION: RECOMMENDED FOLLOW UP: Left breast ultrasound-guided core biopsy with post biopsy cl ip placement and immediate post procedure follow-up two-view mammogram recommended SPECIFIC INTERVENTION/IMAGING/CONSULTATION RECOMMENDED:As above COMMUNICATION:These findings were discussed directly with the patient. She is amenable to procedure being performed at [facility] COMMENT: The patient has been notified of the results by letter per MQSA requirements. Additional no tification policies are in place for contacting patient with suspicious or incomplete findings. Quality ID #[id number]: The [employer] recommends an annual screening mammogram for women aged 40 years or over. This facility utilizes a reminder system to ensure that all patients receive reminder letters, and/or direct phone calls for appointments. This includes reminders for routine scr eening mammograms, diagnostic mammograms, or other Breast Imaging Interventions when appropriate. Th is patient will be placed in the appropriate reminder system. The [employer] (ACR) has developed recommendations for screening MRI of the breast s in certain patient populations, to be used in conjunction with mammography. Breast MRI surveillanc e may be appropriate for women with more than 20% lifetime risk of developing breast cancer as deter mined by genetic testing, significant family history of the disease, or history of mantle radiation f or Hodgkins Disease. ACR Practice Guidelines 2008. TECHNICAL DOCUMENTATION: FINDING NUMBER: (1) ASSESSMENT: (1) JOB ID: [id number] [employer]- All Rights Reserved Reading location - IP/workstation name: [email or web address]
--- NOTE | 2018-01-12 13:35 | WOMENS IMAGING REPORT ---
EXAM DESCRIPTION: LEFT DIAGNOSTIC MAMMO W/CAD; U/S BREAST UNILAT LIMITED COMPLETED DATE/TIME: 01/12/2018 10:35 am; 01/12/2018 12:46 pm REASON FOR STUDY: R92.2 LEFT BREAST MASS; LT BREAST R92.2 R92.2 INCONCLUSIVE MAMMOGRAM COMPARISON: Mammography 12/17/2017 TECHNIQUE: Cone compression craniocaudal and mediolateral oblique images of the breast recorded with digital acquisition. Additional left breast exaggerated craniocaudad view and 90 mediolateral view. Left breast ultrasound was also performed LIMITATIONS: None. FINDINGS: BREAST: Left MASSES: In the far deep upper outer quadrant, a 1.7 x 1 cm mammographic nodule persists on today's co ne compression views. CALCIFICATIONS: No new or suspicious calcifications. ARCHITECTURAL DISTORTION: None. DEVELOPING DENSITY: None. ASYMMETRY: None noted. OTHER: No other significant findings. Read with the assistance of CAD. .[facility] - R2 Cenova Version 1.3 .[facility] Imaging - R2 Cenova Version 1.3 .[facility] - R2 Cenova Version 2.4 .[facility] [place] R2 Cenova Version 2.4 .[facility] - R2 Deputy Editor In Chief Version 9.2 Left breast ultrasound: Ultrasound of the far upper outer quadrant 2 o'clock position demonstrates a well-circumscribed hypoe choic solid nodule with acoustic through transmission measuring 1.6 x 1 cm in size. This most likely represents a fibroadenoma. Malignancy could not entirely be excluded, ultrasound-guided core biopsy with post biopsy clip placement and follow-up two-view mammogram is recommended. IMPRESSION: Solid nodule left breast upper outer quadrant 1.7 x 1 cm in size. Indeterminate for mal ignancy. Ultrasound-guided core biopsy with post biopsy clip placement and follow-up two-view mammog richard recommended BREAST DENSITY: c. The breasts are heterogeneously dense, which may obscure small masses. BIRAD: 4 Suspicious. Biopsy should be considered. RECOMMENDATION: RECOMMENDED FOLLOW UP: Left breast ultrasound-guided core biopsy with post biopsy cl ip placement and immediate post procedure follow-up two-view mammogram recommended SPECIFIC INTERVENTION/IMAGING/CONSULTATION RECOMMENDED:As above COMMUNICATION:These findings were discussed directly with the patient. She is amenable to procedure being performed at [facility] COMMENT: The patient has been notified of the results by letter per MQSA requirements. Additional no tification policies are in place for contacting patient with suspicious or incomplete findings. Quality ID #[id number]: The [employer] recommends an annual screening mammogram for women aged 40 years or over. This facility utilizes a reminder system to ensure that all patients receive reminder letters, and/or direct phone calls for appointments. This includes reminders for routine scr eening mammograms, diagnostic mammograms, or other Breast Imaging Interventions when appropriate. Th is patient will be placed in the appropriate reminder system. The [employer] (ACR) has developed recommendations for screening MRI of the breast s in certain patient populations, to be used in conjunction with mammography. Breast MRI surveillanc e may be appropriate for women with more than 20% lifetime risk of developing breast cancer as deter mined by genetic testing, significant family history of the disease, or history of mantle radiation f or Hodgkins Disease. ACR Practice Guidelines 2008. TECHNICAL DOCUMENTATION: FINDING NUMBER: (1) ASSESSMENT: (1) JOB ID: [id number] [employer])- All Rights Reserved Reading location - IP/workstation name: [email or web address]
== END ==
LOC: WI 10:14
PROVIDERS: ATTEND Internal Medicine
DX: N63.21 Unspecified lump in the left breast, upper outer quadrant (principal)
CPT/HCPCS: 76642

== ENCOUNTER 2018-01-31 17:52 | Emergency (ER) | payer BC, MEDICARE ==
[2018-01-31 18:00] VITALS: BP 133/83
[2018-01-31] MEDS ORDERED: AZITHROMYCIN 250 MG TABLET PO ONE (18:15)
[2018-01-31] MEDS ORDERED: PREDNISONE 20 MG TABLET PO ONE (18:15)
[2018-01-31] MEDS ORDERED: ALBUTEROL SULFATE HFA (90 MCG/PUFF) 8 GM MDI (1 MDI/ER DISP) IH ONE (18:15)
--- NOTE | 2018-01-31 18:16 | ER Document Report ---
ED Medical Screen (RME) - General Chief Complaint: Cold Symptoms Stated Complaint: COPD/COLD SYMPTOMS Time Seen by Provider: 01/31/18 18:05 Mode of Arrival: Ambulatory Information source: Patient TRAVEL OUTSIDE OF THE [place] IN LAST 30 DAYS: No - HPI Patient complains to provider of: Cough Onset: Other - This 72-year-old female with a history of COPD presents for evaluation of cough and runny nose over the last 2 days which seems to be slightly worsened. Specifically she denies any fevers, chest pain, shortness of breath, productive sputum. Notices as bad as previous colds and was hoping to keep this from becoming something more serious. She is not can be seen by her primary physician for several weeks and as a result wanted to be seen before it got worse. - Related Data Allergies/Adverse Reactions: No Known Allergies Allergy (Verified 01/31/18 17:53) Past Medical History - General Information source: Patient, Relative - Social History Chew tobacco use (# tins/day): No Frequency of alcohol use: Rare Drug Abuse: None Family history: Reviewed & Not Pertinent Pulmonary Medical History: Reports: Hx COPD, Hx Pneumonia Renal/ Medical History: Denies: Hx Peritoneal Dialysis Past Surgical History: Reports: Other - Cataract surgery - Immunizations History of Influenza Vaccine for 11/2016 - 04/2017 Season: Yes Influenza Administration Date for 11/2016 - 04/2017 Season: 11/08/16 Review of Systems - Review of Systems -: Yes All other systems reviewed and negative Physical Exam - Vital signs Vitals: Temp Pulse Resp BP Pulse Ox 98.0 F 102 H 20 133/83 H 92 01/31/18 17:58 01/31/18 17:58 01/31/18 17:58 01/31/18 17:58 01/31/18 17:58 Interpretation: Normal - General General appearance: Appears well, Alert - HEENT Head: Normocephalic, Atraumatic Eyes: Normal Pupils: PERRL - Respiratory Respiratory status: No respiratory distress Chest status: Nontender Breath sounds: Wheezing - Scant wheezes in the apices of the lungs Chest palpation: Normal - Cardiovascular Rhythm: Regular Heart sounds: Normal auscultation Murmur: No - Abdominal Inspection: Normal Distension: No distension Bowel sounds: Normal Tenderness: Nontender Organomegaly: No organomegaly - Back Back: Normal, Nontender - Extremities General upper extremity: Normal inspection, Nontender, Normal color, Normal ROM, Normal temperature General lower extremity: Normal inspection, Nontender, Normal color, Normal ROM, Normal temperature, Normal weight bearing. No: Juan Luis's sign - Neurological Neuro grossly intact: Yes Cognition: Normal Orientation: AAOx4 Mckenney Coma Scale Eye Opening: Spontaneous Gayatri Coma Scale Verbal: Oriented Gayatri Coma Scale Motor: Obeys Commands Gayatri Coma Scale Total: 15 Speech: Normal Motor strength normal: LUE, RUE, LLE, RLE Sensory: Normal - Psychological Associated symptoms: Normal affect, Normal mood - Skin Skin Temperature: Warm Skin Moisture: Dry Skin Color: Normal Course - Re-evaluation Re-evalutation: 01/31/18 20:21 72-year-old female with a history of COPD that presents for evaluation of cough and worsening shortness of breath. On examination she is incredibly well-appearing at this time normal work of breathing on room air. She states that she thinks that this is just a cold wanted to get ahead of it before it got any worse because of her bad COPD. We will defer further evaluation at this time as this patient is relatively well-appearing and comfortable. We will plan for administration of treatment of potential developing COPD exacerbation with azithromycin as well as prednisone. She will be discharged with return precautions and expectant management, she also is out of her rescue inhaler and will be given a prescription for albuterol. - Vital Signs Vital signs: Temp Pulse Resp BP Pulse Ox 98.0 F 102 H 20 133/83 H 92 01/31/18 17:58 01/31/18 17:58 01/31/18 17:58 01/31/18 17:58 01/31/18 17:58 Doctor's Discharge - Discharge Clinical Impression: Cough URI (upper respiratory infection) Qualifiers: URI type: unspecified URI Qualified Code(s): J06.9 - Acute upper respiratory infection, unspecified Condition: Good Disposition: HOME, SELF-CARE Instructions: Upper Respiratory Illness ([facility]) Additional Instructions: You were seen today in the emergency department for your cough and possible worsening illness. You had an evaluation including a physical exam. You will be treated with azithromycin as well as a steroid called prednisone. You will be also given an albuterol inhaler. You should use this and have it with you at all times when you need it. Return in case of any worsening chest pain, fevers, chills lightheadedness or other symptoms as it could be a more serious condition. Prescriptions: Albuterol Sulfate [Proair HFA Inhalation Aerosol 8.5 gm MDI] 2 puff IH Q4H PRN #1 mdi PRN Reason: Azithromycin [Zithromax] 250 mg PO DAILY #6 tablet Prednisone [Deltasone 20 mg Tablet] 3 tab PO DAILY 5 Days tablet Referrals: ARTIS VENEGAS MD [Primary Care Provider] - Follow up as needed
== END 2018-01-31 18:29 | disposition home or self-care (01) ==
LOC: ER 17:52
DX: J06.9 Acute upper respiratory infection, unspecified (principal); J44.9 Chronic obstructive pulmonary disease, unspecified
CPT/HCPCS: 99283; J7512; J3490

== ENCOUNTER → 2018-02-10 | Day surgery (SDC) | payer BC, MEDICARE ==
--- NOTE | 2018-02-14 13:48 | WOMENS IMAGING REPORT ---
EXAM DESCRIPTION: U/S BREAST BX; 3D DIAG MAMMO LEFT NO CHG COMPLETED DATE/TIME: 02/14/2018 8:28 am; 02/10/2018 10:35 am REASON FOR STUDY: R92.1; R92.1 LEFT S/P US BX R92.1 MAMMOGRAPHIC CALCIFCN FOUND ON DIAGNOSTIC IMAGI NG OF B COMPARISON: 01/12/2018 TECHNIQUE: The procedure was discussed with the patient and the patient agreed to proceed. The patient was scanned and the area of interest in the 2 o'clock position 7 cm from the nipple of t he left breast was localized. This correlates with the area of concern on prior imaging studies. Thi s area was targeted for ultrasound-guided core biopsy. After sterile skin prep and 3.5 mL local lidocaine 1% for skin and deep tissue anesthesia, a 14 gauge coaxial core biopsy needle was used to obtain several cores of tissue from the lesion. Under ultras ound guidance, a ribbon clip was placed in the areas sampled. There were no immediate post-procedure complications. MAMMOGRAM: Post-procedure two view mammogram was acquired in the digital mammogram suite. The clip wa s in the expected location. No significant hematoma. Pathology yields a diagnosis of benign fibrocystic changes and a thick been metaplasia. Negative for atypia or malignancy Pathology is concordant. LIMITATIONS: None. FINDINGS: Ultrasound guided breast biopsy as described above. POST PROCEDURE MAMMOGRAMS FOR MARKER PLACEMENT: Yes, postprocedure tomosynthesis was performed in the CC and MLO orientations IMPRESSION: ULTRASOUND-GUIDED CORE BIOPSY OF THE LEFT BREAST YIELDS A BENIGN DIAGNOSIS. NO ATYPIA O R MALIGNANCY. BI-RADS 2 COMMENT: PLEASE CONTINUE YEARLY BILATERAL SCREENING MAMMOGRAPHY/ TOMOSYNTHESIS IN DECEMBER 2018 COMMUNICATION: THESE RESULTS WERE DISCUSSED DIRECTLY WITH THE PATIENT, 1100 HOURS 02/14/2018. SHE UNDE RSTANDS THIS IS A BENIGN DIAGNOSIS AND THAT SHE SHOULD RETURN TO YEARLY SCREENING MAMMOGRAPHY/ TOMOSY NTHESIS IN DECEMBER 2018 Patient medication list reviewed: Yes- Quality ID# [id number]:Eligible professional attests to documenting i n the medical record they obtained, updated, or reviewed the patient's current medications. TECHNICAL DOCUMENTATION: JOB ID: [id number] [employer]- All Rights Reserved Reading location - IP/workstation name: [facility]
== END ==
LOC: WI 09:13
PROVIDERS: ATTEND Internal Medicine
DX: R92.1 Mammographic calcification found on diagnostic imaging of breast (principal); N60.12 Diffuse cystic mastopathy of left breast
CPT/HCPCS: 19083; 88305

== ENCOUNTER 2018-05-17 10:52 | Emergency (ER) | payer BC, MEDICARE ==
--- NOTE | 2018-05-17 11:18 | ER Document Report ---
ED Medical Screen (RME) - General Chief Complaint: Shortness Of Breath Stated Complaint: COLD SYMPTOMS/DIFFICULTY BREATHING Time Seen by Provider: 05/17/18 11:04 Primary Care Provider: ARTIS VENEGAS MD [Primary Care Provider] - Follow up as needed Mode of Arrival: Ambulatory Information source: Patient Notes: Patient presents emergency department with complaints of cough difficulty breathing for the past week. Patient reports cough on and off the past week woke up with cold symptoms last night. Reports woke up with having a little difficulty breathing. Denies fever vomiting diarrhea. Reports history of COPD and pneumonia. Patient reports some difficulty breathing with exertion. O2 sats 91% patient reports that she really usually has 02sat in the low 90s. Patient is tacky. Speaks in a clear voice, appears relatively healthy. I have greeted and performed a rapid initial assessment of this patient. A comprehensive ED assessment and evaluation of the patient, analysis of test results and completion of the medical decision making process will be conducted by additional ED providers. TRAVEL OUTSIDE OF THE [place] IN LAST 30 DAYS: No - Related Data Allergies/Adverse Reactions: No Known Allergies Allergy (Verified 05/17/18 10:56) Past Medical History - Social History Chew tobacco use (# tins/day): No Frequency of alcohol use: Occasional Drug Abuse: None Family history: Reviewed & Not Pertinent Pulmonary Medical History: Reports: Hx COPD, Hx Pneumonia Renal/ Medical History: Denies: Hx Peritoneal Dialysis Past Surgical History: Reports: Other - Cataract surgery - Immunizations History of Influenza Vaccine for 11/2016 - 04/2017 Season: Yes Influenza Administration Date for 11/2016 - 04/2017 Season: 11/08/16 Physical Exam - Vital signs Vitals: Temp Pulse Resp BP Pulse Ox 98.4 F 118 H 22 H 163/74 H 91 L 05/17/18 11:02 05/17/18 11:02 05/17/18 11:02 05/17/18 11:02 05/17/18 11:02 Course - Vital Signs Vital signs: Temp Pulse Resp BP Pulse Ox 98.4 F 118 H 22 H 163/74 H 91 L 05/17/18 11:02 05/17/18 11:02 05/17/18 11:02 05/17/18 11:02 05/17/18 11:02 Doctor's Discharge - Discharge Referrals: ARTIS VENEGAS MD [Primary Care Provider] - Follow up as needed
--- NOTE | 2018-05-17 12:39 | RADIOLOGY REPORT (SQ) ---
EXAM DESCRIPTION: CHEST 2 VIEWS COMPLETED DATE/TIME: 05/17/2018 12:15 pm REASON FOR STUDY: cough, difficulty breathing, hx copd COMPARISON: Two-view chest 05/06/2017, AP chest 05/10/2017 EXAM PARAMETERS: NUMBER OF VIEWS: two views TECHNIQUE: Digital Frontal and Lateral radiographic views of the chest acquired. RADIATION DOSE: NA LIMITATIONS: none FINDINGS: LUNGS AND PLEURA: Upper lobes are hyperlucent with flattening in the hemidiaphragms worris ome for obstructive lung disease. No acute infiltrates. No pleural effusion or pneumothorax. MEDIASTINUM AND HILAR STRUCTURES: No masses or contour abnormalities. HEART AND VASCULAR STRUCTURES: Heart normal size. No evidence for failure. BONES: No acute findings. HARDWARE: None in the chest. OTHER: No other significant finding. IMPRESSION: Hyperinflation and hyperlucency suggests obstructive lung disease. No acute findings TECHNICAL DOCUMENTATION: JOB ID: [id number] [employer]- All Rights Reserved Reading location - IP/workstation name: [email or web address]
[2018-05-17] MEDS ORDERED: AZITHROMYCIN 250 MG TABLET PO ONE (13:29)
--- NOTE | 2018-05-17 13:37 | ER Document Report ---
ED General - General Chief Complaint: Shortness Of Breath Stated Complaint: COLD SYMPTOMS/DIFFICULTY BREATHING Time Seen by Provider: 05/17/18 11:04 Primary Care Provider: ARTIS VENEGAS MD [Primary Care Provider] - Follow up as needed Mode of Arrival: Ambulatory Notes: 72-year-old female with a history of COPD presents for evaluation of cough and runny nose over the last 2-3 weeks which got acutely worse over the last day or 2. Specifically she denies any fevers, chest pain, complains of shortness of breath and productive sputum. Complains of rhinorrhea, sinus pressure, headache. Denies any sore throat, earache, nausea or vomiting, chest pain or shortness of breath, urinary symptoms. Notices as bad as previous colds and was hoping to keep this from becoming something more serious. TRAVEL OUTSIDE OF THE [place] IN LAST 30 DAYS: No - Related Data Allergies/Adverse Reactions: No Known Allergies Allergy (Verified 05/17/18 10:56) Past Medical History - General Information source: Patient - Social History Smoking Status: Former Smoker Chew tobacco use (# tins/day): No Frequency of alcohol use: Occasional Drug Abuse: None Family History: Reviewed & Not Pertinent, Arthritis Patient has suicidal ideation: No Patient has homicidal ideation: No Pulmonary Medical History: Reports: Hx COPD, Hx Pneumonia Renal/ Medical History: Denies: Hx Peritoneal Dialysis Past Surgical History: Reports: Other - Cataract surgery Review of Systems - Review of Systems Constitutional: See HPI EENT: See HPI Cardiovascular: See HPI Respiratory: See HPI Gastrointestinal: See HPI Genitourinary: No symptoms reported Female Genitourinary: No symptoms reported Musculoskeletal: No symptoms reported Skin: No symptoms reported Hematologic/Lymphatic: No symptoms reported Neurological/Psychological: No symptoms reported Physical Exam - Vital signs Vitals: Temp Pulse Resp BP Pulse Ox 98.4 F 118 H 22 H 163/74 H 91 L 05/17/18 11:02 05/17/18 11:02 05/17/18 11:02 05/17/18 11:02 05/17/18 11:02 - Notes Notes: PHYSICAL EXAMINATION: Reviewed vital signs and charting by RN GENERAL: Alert, interacts well. No acute distress. HEAD: Normocephalic, atraumatic. EYES: Pupils equal and round. Extraocular movements intact. ENT: Oral mucosa moist, tongue midline. NECK: Full range of motion. Supple. Trachea midline. LUNGS: Clear to auscultation bilaterally, no wheezes, rales, or rhonchi. No respiratory distress. HEART: Regular rate and rhythm. No murmur ABDOMEN: soft, non-tender. Non-distended. Bowel sounds present. no McBurney's point tenderness, no Ferrari sign. EXTREMITIES: Moves all 4 extremities spontaneously. No edema, No cyanosis. Normal distal neurovascular exam BACK: No CVAT NEUROLOGIC: Oriented and appropriate. Normal speech. PSYCH: Normal affect, normal mood. SKIN: Warm, dry, normal turgor. No rashes or lesions noted. Course - Re-evaluation Re-evalutation: 05/17/18 13:43 Overall very well-appearing, discussed with Dr. albert, she said it is not unreasonable to treat. Patient appears to be looking for something at this visit. She is complaining of shortness of breath but there was no wheezing at all heard on exam. We will give her a 5-day course of prednisone and a azithromycin. Stable for discharge. Return precautions given. 05/17/18 13:44 - Vital Signs Vital signs: Temp Pulse Resp BP Pulse Ox 98.4 F 118 H 22 H 163/74 H 91 L 05/17/18 11:02 05/17/18 11:02 05/17/18 11:02 05/17/18 11:02 05/17/18 11:02 Discharge - Discharge Clinical Impression: Cough COPD (chronic obstructive pulmonary disease) Qualifiers: COPD type: unspecified COPD Qualified Code(s): J44.9 - Chronic obstructive pulmonary disease, unspecified Condition: Good Disposition: HOME, SELF-CARE Instructions: Chronic Obstructive Lung Disease ([facility]) Additional Instructions: You were seen for COPD and a cough. I have given you a prescription for steroids and for an antibiotic similar to what you had the last time you are here. Because you have COPD antibiotics are warranted even though we did not find anything in your physical exam or chest x-ray today. However, it is very important that you return to the emergency department immediately if you began to have worsening difficulty breathing that does not respond to your normal home nebulizers. You are also being sent home on a five-day course of steroids that you should start taking tomorrow. Please also follow closely with your primary care physician. You should return to emergency department if you develop fever greater than 101, persistent cough, persistent vomiting, pass out, or any other symptoms that are concerning to you. Prescriptions: Azithromycin [Zithromax 250 mg Tablet] 250 mg PO ASDIR PRN #4 tablet PRN Reason: Prednisone [Deltasone 20 mg Tablet] 60 mg PO DAILY 5 Days #15 tablet Forms: Return to Work Referrals: ARTIS VENEGAS MD [Primary Care Provider] - Follow up as needed
[2018-05-17 13:53] VITALS: BP 149/86
== END 2018-05-17 13:53 | disposition home or self-care (01) ==
LOC: ER 10:52
DX: J44.9 Chronic obstructive pulmonary disease, unspecified (principal)
CPT/HCPCS: 71046; 99283

== ENCOUNTER 2018-05-18 09:57 | Inpatient (IN) | payer BC, MEDICARE ==
--- NOTE | 2018-05-18 10:27 | ER Document Report ---
ED Medical Screen (RME) - General Chief Complaint: Breathing Difficulty Stated Complaint: SHORTNESS OF BREATH Time Seen by Provider: 05/18/18 10:20 Primary Care Provider: ARTIS VENEGAS MD [Primary Care Provider] - Follow up as needed Mode of Arrival: Wheelchair Information source: Patient Notes: Patient returns today for reports of increased difficulty breathing. Raised patient was evaluated yesterday and discharged home on steroids. She reports she woke up in the middle night and could not breathe. She reports after she sat up she was able to breathe a little better. reports she becomes extremely short of breath with any kind of exertion. Patient does have history of COPD. Upon arrival O2 sat was 88% RA, with 2 L of oxygen her O2 sat went up to 93%. Respiratory rate even and unlabored at this time. I have greeted and performed a rapid initial assessment of this patient. A comprehensive ED assessment and evaluation of the patient, analysis of test results and completion of the medical decision making process will be conducted by additional ED providers. Dictation of this chart was performed using voice recognition software; therefore, there may be some unintended grammatical errors. TRAVEL OUTSIDE OF THE [place] IN LAST 30 DAYS: No - Related Data Allergies/Adverse Reactions: No Known Allergies Allergy (Verified 05/18/18 10:22) Past Medical History - Social History Chew tobacco use (# tins/day): No Frequency of alcohol use: Occasional Drug Abuse: None Family history: Reviewed & Not Pertinent Pulmonary Medical History: Reports: Hx COPD, Hx Pneumonia Renal/ Medical History: Denies: Hx Peritoneal Dialysis Past Surgical History: Reports: Other - Cataract surgery - Immunizations History of Influenza Vaccine for 11/2016 - 04/2017 Season: Yes Influenza Administration Date for 11/2016 - 04/2017 Season: 11/08/16 Physical Exam - Vital signs Vitals: Temp Pulse BP Pulse Ox 98.0 F 115 H 155/71 H 90 L 05/18/18 10:00 05/18/18 10:00 05/18/18 10:00 05/18/18 10:00 Course - Vital Signs Vital signs: Temp Pulse Resp BP Pulse Ox 98.0 F 106 H 155/71 H 93 05/18/18 10:00 05/18/18 10:16 05/18/18 10:00 05/18/18 10:16 Doctor's Discharge - Discharge Referrals: ARTIS VENEGAS MD [Primary Care Provider] - Follow up as needed
[2018-05-18 11:03] LABS: ABSOLUTE MONOCYTES (AUTO) 0.7 10^3/uL (0.1-1.4); ABSOLUTE NEUT (AUTO) 6.6 10^3/uL (1.7-8.2); BASOPHILS % (AUTO) 0.3 % (0-2); EOSINOPHILS % (AUTO) 0.3 % (0-6); HEMATOCRIT 42.6 % (36.0-47.0); HEMOGLOBIN 14.6 g/dL (12.0-15.5); LYMPHOCYTES % (AUTO) 11.6 % (13-45); MEAN CORPUSCULAR HEMOGLOBIN 32.6 pg (27.0-33.4); MEAN CORPUSCULAR HGB CONC 34.4 g/dL (32.0-36.0); MEAN CORPUSCULAR VOLUME 95 fl (80-97); MONOCYTES % (AUTO) 8.4 % (3-13); PLATELET COUNT 302 10^3/uL (150-450); RED BLOOD COUNT 4.49 10^6/uL (3.72-5.28); RED CELL DISTRIBUTION WIDTH 13.9 % (11.5-14.0); SEGMENTED NEUTROPHILS % (AUTO) 79.4 % (42-78); TOTAL CELLS COUNTED % (AUTO) 100 %; WHITE BLOOD COUNT 8.3 10^3/uL (4.0-10.5)
--- NOTE | 2018-05-18 11:15 | RADIOLOGY REPORT (SQ) ---
EXAM DESCRIPTION: CHEST 2 VIEWS COMPLETED DATE/TIME: 05/18/2018 10:57 am REASON FOR STUDY: difficulty breathing, worse from yesterday COMPARISON: EXAM PARAMETERS: NUMBER OF VIEWS: two views TECHNIQUE: Digital Frontal and Lateral radiographic views of the chest acquired. RADIATION DOSE: NA LIMITATIONS: none FINDINGS: LUNGS AND PLEURA: No focal airspace disease, pleural effusion or pneumothorax. Hyperinfla tion with increased AP diameter of the thorax, unchanged. MEDIASTINUM AND HILAR STRUCTURES: No masses or contour abnormalities. HEART AND VASCULAR STRUCTURES: Normal heart size. No evidence of failure. Aortic atherosclerosis. BONES: Decreased mineralization. No acute findings. HARDWARE: None in the chest. OTHER: No other significant finding. IMPRESSION: Emphysematous change without other evidence of acute cardiopulmonary process. TECHNICAL DOCUMENTATION: JOB ID: [id number] [employer]- All Rights Reserved Reading location - IP/workstation name: [email or web address]
[2018-05-18 11:33] LABS: ALANINE AMINOTRANSFERASE 33 U/L (9-52); ALKALINE PHOSPHATASE 98 U/L (38-126); ANION GAP 7 (5-19); ASPARTATE AMINO TRANSFERASE 20 U/L (14-36); BILIRUBIN,DIRECT 0.3 mg/dL (0.0-0.4); BILIRUBIN,TOTAL 0.7 mg/dL (0.2-1.3); BLOOD UREA NITROGEN 10 mg/dL (7-20); CALCIUM 9.3 mg/dL (8.4-10.2); CARBON DIOXIDE 25 mmol/L (22-30); CHLORIDE 104 mmol/L (98-107); GLUCOSE 123 mg/dL (75-110); POTASSIUM 4.3 mmol/L (3.6-5.0); SODIUM 136.1 mmol/L (137-145); TOTAL PROTEIN 7.3 g/dL (6.3-8.2)
--- NOTE | 2018-05-18 11:44 | ER Document Report ---
ED Respiratory Problem - General Chief Complaint: Breathing Difficulty Stated Complaint: SHORTNESS OF BREATH Time Seen by Provider: 05/18/18 10:20 Mode of Arrival: Wheelchair Notes: 72-year-old female patient emergency department chief complaint of shortness of breath. Patient was seen here yesterday. History of COPD. No history of CHF. No history of blood clots. Quit smoking 1 year ago. Patient received some prednisone and breathing treatments and was feeling much better. States that her wheezing began again last night. States that today it is worse she denies any chest pain. Denies any pain in the calf. Does report a recent trip to [place] where she was in a car for several hour TRAVEL OUTSIDE OF THE [place] IN LAST 30 DAYS: No - HPI Patient complains to provider of: COPD, Cough, Short of breath Onset: Last week Duration: Continuous, Worse/persistent Severity: Moderate Pain Level: 0 Context: Hx COPD Short of Breath: Moderate - Related Data Allergies/Adverse Reactions: No Known Allergies Allergy (Verified 05/18/18 10:22) Past Medical History - General Information source: Patient - Social History Smoking Status: Former Smoker Chew tobacco use (# tins/day): No Frequency of alcohol use: Occasional Drug Abuse: None Family History: Reviewed & Not Pertinent, Arthritis Patient has suicidal ideation: No Patient has homicidal ideation: No Pulmonary Medical History: Reports: Hx COPD, Hx Pneumonia Renal/ Medical History: Denies: Hx Peritoneal Dialysis Past Surgical History: Reports: Other - Cataract surgery Review of Systems - Review of Systems Notes: Constitutional: denies: Chills, Diaphoresis, Fever, Malaise, Weakness EENT: denies: Eye discharge, Blurred vision, Tearing, Double vision, Nose congestion, Nose discharge, Throat swelling, Mouth pain Cardiovascular: denies: Palpitations, Heart racing, Orthopnea, Dyspnea, Chest pain Respiratory: denies: Cough, Hurts to breathe, +Wheezing, +Shortness of breath Gastrointestinal: denies: Abdominal pain, Diarrhea, Nausea, Vomiting, Black stools, bright red blood in stool Genitourinary: denies: Burning, Dysuria, Discharge, Frequency, Flank pain, Hematuria Musculoskeletal: denies: Joint pain, Joint swelling, Muscle pain, Muscle stiffness, back pain Hematologic/Lymphatic: denies: Anemia, Easy bleeding, Easy bruising, Blood clots Neurological/Psychological: denies: Confusion, Dementia, Depression, Loss of consciousness Skin: No lesions, no masses, no skin breakdown, no abscesses Physical Exam - Vital signs Vitals: Temp Pulse BP Pulse Ox 98.0 F 115 H 155/71 H 90 L 05/18/18 10:00 05/18/18 10:00 05/18/18 10:00 05/18/18 10:00 Interpretation: Tachycardic, Tachypneic - General General appearance: Appears well, Alert - HEENT Head: Normocephalic, Atraumatic Eyes: Normal Pupils: PERRL - Respiratory Respiratory status: No respiratory distress Chest status: Nontender Breath sounds: Wheezing - Mild expiratory wheezing Chest palpation: Normal - Cardiovascular Rhythm: Tachycardia Heart sounds: Normal auscultation Murmur: No - Abdominal Inspection: Normal Distension: No distension Bowel sounds: Normal Tenderness: Nontender Organomegaly: No organomegaly - Back Back: Normal, Nontender - Extremities General upper extremity: Normal inspection, Nontender, Normal color, Normal ROM, Normal temperature General lower extremity: Normal inspection, Nontender, Edema - His edema bilate ral lower extremities, Normal color, Normal ROM, Normal temperature, Normal weight bearing. No: Juan Luis's sign - Neurological Neuro grossly intact: Yes Cognition: Normal Orientation: AAOx4 [place] Coma Scale Eye Opening: Spontaneous Gayatri Coma Scale Verbal: Oriented [place] Coma Scale Motor: Obeys Commands Gayatri Coma Scale Total: 15 Speech: Normal Motor strength normal: LUE, RUE, LLE, RLE Sensory: Normal - Psychological Associated symptoms: Normal affect, Normal mood - Skin Skin Temperature: Warm Skin Moisture: Dry Skin Color: Normal Course - Re-evaluation Re-evalutation: 05/18/18 12:22 At this time patient is a bounce back from yesterday but her physical exam is fairly unremarkable. She has some trace wheezing and some trace edema to the lower extremities. Does not appear to be any in any extremis. Patient was on oxygen but I turned it off and currently she saturating at 93% on room air. I am going to get an ABG, repeat labs, chest x-ray as well as a d-dimer. I have informed her that if the d-dimer is positive we will scan her chest to make sure that we are not missing a PE in the setting of this shortness of breath. Patient is comfortable with this plan. 05/18/18 13:06 Slightly elevated d-dimer being up patient is return here 2 days in a row for shortness of breath at think we should rule out a PE. We will do the angiogram at this time. Patient has been briefed on while we are doing this and she is comfortable with this procedure. 05/18/18 14:22 CT scan shows right upper and right middle lobe groundglass opacities consistent with pneumonia. Attempted to ambulate patient but her oxygen saturations dr taviaped to 80% and her heart rate jumped up to 120. At this time I am going to admit to the hospital or Dr. Elizabeth has been consulted. Patient stable at this time. Chest X-Ray 05/18/18 10:24 IMPRESSION: Emphysematous change without other evidence of acute cardiopul monary process. Chest/Abdomen CTA 05/18/18 13:06 IMPRESSION: 1. No evidence for acute pulmonary emboli. 2. Fairly extensive ground-glass attenuated areas and airspace nodular opacities in the right upper and right middle lobes may be on the basis of pneumonia. Correlation suggested and follow-up noncontrast CT chest examination in three months to document for interval resolution. 3. Borderline to mildly prominent mediastinal and hilar lymph nodes. 4. Additional findings as above. 05/18/18 14:31 - Vital Signs Vital signs: Temp Pulse Resp BP Pulse Ox 98.0 F 106 H 28 H 108/81 97 05/18/18 10:00 05/18/18 10:16 05/18/18 14:00 05/18/18 13:01 05/18/18 13:01 - Laboratory Result Diagrams: 05/18/18 10:40 05/18/18 10:40 Laboratory results interpreted by me: 05/18/18 05/18/18 05/18/18 10:40 10:40 11:47 Seg Neutrophils % 79.4 H Lymphocytes % 11.6 L D-Dimer ABG pO2 55.4 L ABG HCO3 24.5 H ABG Total CO2 25.7 H ABG O2 Saturation 88.7 L Sodium 136.1 L Glucose 123 H 05/18/18 12:33 Seg Neutrophils % Lymphocytes % D-Dimer 0.66 H ABG pO2 ABG HCO3 ABG Total CO2 ABG O2 Saturation Sodium Glucose Critical Care Note - Critical Care Note Total time excluding time spent on procedures (mins): 35 Comments: Hypoxia, tachycardia, pneumonia, consultation with primary care doctor Discharge - Discharge Clinical Impression: Pneumonia Qualifiers: Pneumonia type: due to unspecified organism Laterality: right Lung location: upper lobe of lung Qualified Code(s): J18.1 - Lobar pneumonia, unspecified organism Condition: Good Disposition: ADMITTED INPATIENT Admitting Provider: [facility] Admitted: Telemetry
[2018-05-18] MEDS ORDERED: IPRATROPIUM/ALBUTEROL 0.5-2.5 MG/3 ML AMPUL NEB ONE (11:47)
[2018-05-18 12:01] LABS: ARTERIAL BLOOD BASE EXCESS -0.4 mmol/L; ARTERIAL BLOOD H2CO3 1.23 mmol/L (1.05-1.35); ARTERIAL BLOOD HCO3 24.5 mmol/L (20-24); ARTERIAL BLOOD O2 SATURATION 88.7 % (94-98); ARTERIAL BLOOD PH 7.39 (7.35-7.45); ARTERIAL BLOOD PO2 55.4 mmHg (80-100); ARTERIAL BLOOD TOTAL CO2 25.7 mmol/L (21-25)
[2018-05-18 12:02] LABS: ARTERIAL BLOOD FIO2 ROOMAIR
[2018-05-18] MEDS ORDERED: METHYLPREDNISOLONE INJ 125 MG/2 ML SDV IV ONE (13:56)
--- NOTE | 2018-05-18 14:14 | RADIOLOGY REPORT (SQ) ---
EXAM DESCRIPTION: CTA CHEST COMPLETED DATE/TIME: 05/18/2018 1:46 pm REASON FOR STUDY: sob COMPARISON: None. TECHNIQUE: CT scan of the chest performed using helical scanning technique with dynamic intravenous contrast injection. Images reviewed with lung, soft tissue and bone windows. Reconstructed coronal and sagittal MPR images reviewed. Additional 3 dimensional post-processing performed to develop Maximal Intensity Projection images ([place] P). All images stored on PACS. All CT scanners at this facility use dose modulation, iterative reconstruction, and/or weight based d osing when appropriate to reduce radiation dose to as low as reasonably achievable (ALARA). [facility]: Dose Right [facility]: CareDose [facility]: Dose Right [facility]: Teradose 4D [facility]: Aliveshoes CONTRAST TYPE AND DOSE: contrast/concentration: Isovue 350.00 mg/ml; Total Contrast Delivered: 135.0 ml; Total Saline Delivered: 150.0 ml Contrast bolus optimized for the pulmonary arteries. Not diagnostic for the aorta. RENAL FUNCTION: Creatinine -0.7 RADIATION DOSE: CT Rad equipment meets quality standard of care and radiation dose reduction techniq ues were employed. CTDIvol: 21.1 - 34.7 mGy. DLP: 826 mGy-cm. . LIMITATIONS: None. FINDINGS: LUNGS AND PLEURA: Right upper lobe-right middle lobe fairly extensive ground-glass attenu ated areas and airspace nodular opacities may be on the basis of infiltrates. Emphysematous changes in the lungs. Prior granulomatous disease. No pneumothorax or pleural effusion. The central airway s are clear. AORTA AND GREAT VESSELS: Great vessels are patent. No aneurysm. Contrast bolus not optimized for t he aorta. HEART: Atherosclerotic changes involving the thoracic aorta. Mild coronary artery calcifications. No pericardial effusion. No significant coronary artery calcifications. PULMONARY ARTERIES: No emboli visualized in the main pulmonary arteries or the segmental branches. HILAR AND MEDIASTINAL STRUCTURES: Borderline to mildly prominent mediastinal and hilar lymph nodes. Some of the largest lymph nodes measure 2.0 cm in short axis diameter. HARDWARE:None in the chest. UPPER ABDOMEN: Fatty liver. Fat containing right diaphragmatic hernia. Atherosclerotic changes inv olve the visualized upper abdominal aorta. Smooth cortical defect of lateral aspect of the mid right kidney maybe on the basis of prior inflammatory changes. Two patent right renal arteries. Small hi atal hernia. Limited exam. THYROID AND OTHER SOFT TISSUES: The visualized thyroid gland is heterogenous in appearance with smal l nodules suggested. BONES: No acute or significant finding. 3D MIPS: Confirm above findings. OTHER: No other significant finding. IMPRESSION: 1. No evidence for acute pulmonary emboli. 2. Fairly extensive ground-glass attenuated areas and airspace nodular opacities in the right upper and right middle lobes may be on the basis of pneumonia. Correlation suggested and follow-up noncont rast CT chest examination in three months to document for interval resolution. 3. Borderline to mildly prominent mediastinal and hilar lymph nodes. 4. Additional findings as above. COMMENT: Quality ID # [id number]: Final reports with documentation of one or more dose reduction techniques (e.g., Automated exposure control, adjustment of the mA and/or kV according to patient size, use of iterative reconstruction technique) TECHNICAL DOCUMENTATION: JOB ID: [id number] [employer]- All Rights Reserved Reading location - IP/workstation name: [email or web address]
[2018-05-18] MEDS ORDERED: CEFTRIAXONE 1 GM/D5W RTU 1 GM/50 ML RTUPB IV ONE (14:22)
[2018-05-18] MEDS ORDERED: AZITHROMYCIN INJ 500 MG VIAL IV ONE (14:29)
--- NOTE | 2018-05-18 16:14 | PDOC H&P ---
History of Present Illness Admission Date/PCP: 05/18/18 14:46 ARTIS VENEGAS MD History of Present Illness: NAN ALMEIDA is a 72 year old female, She has a history of chronic obstructive pulmonary disease, she came to the emergency room for evaluation of shortness of breath, cough she was in the emergency room yesterday for the same problem she was evaluated she was prescribed medication and discharged home, she returned back again to the emergency room today for evaluation of shortness of breath, in the emergency room arterial blood gas was obtained, it demonstrated pH 7.39, PCO2 54.4, bicarbonate 24.5, PCO2 41 [address] air.CT angiogram of the chest was obtained, it demonstrated right upper lobe, right middle lobe fairly extensive groundglass attenuated areas and he has space nodular opacities there is a background of emphysematous changes there was no blood clot Past Medical History Pulmonary Medical History: Reports: Chronic Obstructive Pulmonary Disease (COPD), Pneumonia Past Surgical History Past Surgical History: Reports: Other - Cataract surgery Social History Smoking Status: Former Smoker Frequency of Alcohol Use: None Hx Recreational Drug Use: No Drugs: None Hx Prescription Drug Abuse: No Family History Family History: Reviewed & Not Pertinent, Arthritis Parental Family History Reviewed: Yes Children Family History Reviewed: Yes Sibling(s) Family History Reviewed.: Yes Medication/Allergy Home Medications: Albuterol Sulfate [Proair Hfa Inhalation Aerosol 8.5 gm Mdi] 1 puff IH Q4 PRN 05/18/18 Aspirin [Ecotrin] 81 mg PO DAILY 05/18/18 Pravastatin Sodium [Pravachol] 10 mg PO QHS 05/18/18 Tiotropium Tippo [Spiriva Handihaler 5 Cap/Kit (18 Mcg/Cap)] 1 cap IH DAILY 05/18/18 Allergies/Adverse Reactions: No Known Allergies Allergy (Verified 05/18/18 10:22) Review of Systems Constitutional: ABSENT: chills, fever(s), headache(s), weight gain, weight loss Eyes: ABSENT: visual disturbances Ears: ABSENT: hearing changes Cardiovascular: ABSENT: chest pain, dyspnea on exertion, edema, orthropnea, palpitations Respiratory: PRESENT: cough, dyspnea, sputum Gastrointestinal: ABSENT: abdominal pain, constipation, diarrhea, hematemesis, hematochezia, nausea, vomiting Genitourinary: ABSENT: dysuria, hematuria Musculoskeletal: ABSENT: joint swelling Integumentary: ABSENT: rash, wounds Neurological: ABSENT: abnormal gait, abnormal speech, confusion, dizziness, focal weakness, syncope Psychiatric: ABSENT: anxiety, depression, homidical ideation, suicidal ideation Endocrine: ABSENT: cold intolerance, heat intolerance, menstrual abnormalities, polydipsia, polyuria Hematologic/Lymphatic: ABSENT: easy bleeding, easy bruising, lymphadenopathy Physical Exam Vital Signs: Temp Pulse Resp BP Pulse Ox 98.0 F 106 H 31 H 108/81 97 05/18/18 10:00 05/18/18 10:16 05/18/18 15:00 05/18/18 13:01 05/18/18 15:00 Intake & Output 05/17/18 05/18/18 05/19/18 06:59 06:59 06:59 Intake Total 50 Balance 50 Weight 81 kg General appearance: PRESENT: mild distress Head exam: PRESENT: atraumatic, normocephalic Eye exam: PRESENT: conjunctiva pink, EOMI, PERRLA Neck exam: PRESENT: full ROM Respiratory exam: PRESENT: clear to auscultation mayra, wheezes Cardiovascular exam: PRESENT: RRR, +S1, +S2 Vascular exam: PRESENT: normal capillary refill GI/Abdominal exam: PRESENT: normal bowel sounds, soft Rectal exam: PRESENT: deferred Neurological exam: PRESENT: alert, CN II-XII grossly intact Psychiatric exam: PRESENT: appropriate affect, normal mood Skin exam: PRESENT: dry, intact, warm Results Laboratory Results: 05/18/18 10:40 05/18/18 10:40 05/18/18 05/18/18 05/18/18 10:40 10:40 11:47 WBC 8.3 RBC 4.49 Hgb 14.6 Hct 42.6 MCV 95 MCH 32.6 MCHC 34.4 RDW 13.9 Plt Count 302 Seg Neutrophils % 79.4 H Lymphocytes % 11.6 L Monocytes % 8.4 Eosinophils % 0.3 Basophils % 0.3 Absolute Neutrophils 6.6 Absolute Lymphocytes 1.0 Absolute Monocytes 0.7 Absolute Eosinophils 0.0 Absolute Basophils 0.0 Carbonic Acid 1.23 HCO3/H2CO3 Ratio 19:1 ABG pH 7.39 ABG pCO2 41.0 ABG pO2 55.4 L ABG HCO3 24.5 H ABG O2 Saturation 88.7 L ABG Base Excess -0.4 FiO2 ROOMAIR Sodium 136.1 L Potassium 4.3 Chloride 104 Carbon Dioxide 25 Anion Gap 7 BUN 10 Creatinine 0.70 Est GFR ( Amer) > 60 Est GFR (Non-Af Amer) > 60 Glucose 123 H Calcium 9.3 Total Bilirubin 0.7 AST 20 ALT 33 Alkaline Phosphatase 98 Total Protein 7.3 Albumin 4.0 05/18/18 05/18/18 10:40 10:40 Creatine Kinase 54 NT-Pro-B Natriuret Pep 155 Impressions: Chest X-Ray 05/18/18 10:24 IMPRESSION: Emphysematous change without other evidence of acute cardiopulmonary process. Chest/Abdomen CTA 05/18/18 13:06 IMPRESSION: 1. No evidence for acute pulmonary emboli. 2. Fairly extensive ground-glass attenuated areas and airspace nodular opacities in the right upper and right middle lobes may be on the basis of pneumonia. Correlation suggested and follow-up noncontrast CT chest examination in three months to document for interval resolution. 3. Borderline to mildly prominent mediastinal and hilar lymph nodes. 4. Additional findings as above. Assessment & Plan - Diagnosis (1) Acute hypoxemic respiratory failure Is this a current diagnosis for this admission?: Yes Plan: She has acute hypoxemic respiratory failure, patient not presently requiring noninvasive positive pressure ventilation she will be treated with nasal cannula oxygen at 2 L/min (2) Pneumonia involving right lung Qualifiers: Pneumonia type: due to unspecified organism Lung location: unspecified part of lung Qualified Code(s): J18.9 - Pneumonia, unspecified organism Is this a current diagnosis for this admission?: Yes Plan: She has severe COPD, this increases risk of gram-negative pneumonia, Streptococcus pneumonia, atypical pneumonia. She will be treated with intravenous cefepime and Levaquin this will cover potential pathogens other than MRSA (3) COPD (chronic obstructive pulmonary disease) Qualifiers: COPD type: unspecified COPD Qualified Code(s): J44.9 - Chronic obstructive pulmonary disease, unspecified Is this a current diagnosis for this admission?: Yes Plan: She has COPD, continue bronchodilators
[2018-05-18 16:59] LABS: CREATINE KINASE MB 1.67 ng/mL (<4.55)
[2018-05-18 17:04] LABS: TROPONIN I < 0.012 ng/mL
[2018-05-18] MEDS: NORMAL SALINE 1000 ML 1,000 ML IV PRN (17:45)
[2018-05-18] MEDS: ENOXAPARIN SODIUM INJ 40 MG/0.4 ML DISP.SYRIN SUBCUT SCH (17:45)
[2018-05-18 18:24] LABS: APPEARANCE,URINE CLEAR; BILIRUBIN,URINE NEGATIVE (NEGATIVE); COLOR,URINE YELLOW; GLUCOSE, URINE NEGATIVE (NEGATIVE); KETONES,URINE TRACE mg/dL (NEGATIVE); LEUKOCYTE ESTERASE,URINE NEGATIVE (NEGATIVE); NITRITE,URINE NEGATIVE (NEGATIVE); PROTEIN,URINE NEGATIVE (NEGATIVE); UROBILINOGEN,URINE NEGATIVE mg/dL (<2.0)
[2018-05-18] MEDS: LEVOFLOXACIN 750 MG/D5W RTU 750 MG/150 ML RTUPB IV SCH (20:31)
[2018-05-18] MEDS ORDERED: CEFEPIME 2 GM/D5W RTU 2 GM/50 ML RTUPB IV SCH (22:00)
[2018-05-18] MEDS ORDERED: CEFEPIME 2 GM/D5W RTU 2 GM/50 ML RTUPB IV ONE (22:46)
[2018-05-19 05:31] LABS: ABSOLUTE LYMPHOCYTES (AUTO) 1.3 10^3/uL (0.5-4.7); ABSOLUTE NEUT (AUTO) 6.3 10^3/uL (1.7-8.2); BASOPHILS % (AUTO) 0.1 % (0-2); HEMATOCRIT 41.3 % (36.0-47.0); HEMOGLOBIN 14.2 g/dL (12.0-15.5); MEAN CORPUSCULAR HEMOGLOBIN 32.9 pg (27.0-33.4); MEAN CORPUSCULAR HGB CONC 34.4 g/dL (32.0-36.0); MEAN CORPUSCULAR VOLUME 96 fl (80-97); MONOCYTES % (AUTO) 12.1 % (3-13); PLATELET COUNT 296 10^3/uL (150-450); RED BLOOD COUNT 4.32 10^6/uL (3.72-5.28); RED CELL DISTRIBUTION WIDTH 14.1 % (11.5-14.0); SEGMENTED NEUTROPHILS % (AUTO) 72.8 % (42-78); TOTAL CELLS COUNTED % (AUTO) 100 %; WHITE BLOOD COUNT 8.6 10^3/uL (4.0-10.5)
[2018-05-19] MEDS: NORMAL SALINE 1000 ML 1,000 ML IV PRN ×2 (05:55→17:57)
[2018-05-19 06:02] LABS: ALANINE AMINOTRANSFERASE 29 U/L (9-52); ALBUMIN 3.6 g/dL (3.5-5.0); ALKALINE PHOSPHATASE 90 U/L (38-126); ANION GAP 9 (5-19); ASPARTATE AMINO TRANSFERASE 14 U/L (14-36); BILIRUBIN,DIRECT 0.3 mg/dL (0.0-0.4); BILIRUBIN,TOTAL 0.3 mg/dL (0.2-1.3); BLOOD UREA NITROGEN 16 mg/dL (7-20); CARBON DIOXIDE 25 mmol/L (22-30); CHLORIDE 107 mmol/L (98-107); GLUCOSE 126 mg/dL (75-110); POTASSIUM 4.5 mmol/L (3.6-5.0); SODIUM 140.6 mmol/L (137-145); TOTAL PROTEIN 6.7 g/dL (6.3-8.2)
[2018-05-19] MEDS: CEFEPIME HCL 2 GM in DEXTROSE 5%-WATER 50 ML IV SCH ×2 (09:50→21:42)
[2018-05-19] MEDS: ENOXAPARIN SODIUM INJ 40 MG/0.4 ML DISP.SYRIN SUBCUT SCH (09:51)
--- NOTE | 2018-05-19 10:56 | EKG REPORT ---
SEVERITY:- ABNORMAL ECG - SINUS RHYTHM BIATRIAL ABNORMALITIES : Confirmed by: Makayla Shirley 19-May-2018 10:55:19
[2018-05-19] MEDS: IPRATROPIUM/ALBUTEROL 0.5-2.5 MG/3 ML AMPUL NEB PRN (11:13)
[2018-05-19] MEDS: LEVOFLOXACIN 750 MG/D5W RTU 750 MG/150 ML RTUPB IV SCH (17:57)
--- NOTE | 2018-05-19 19:15 | PDOC PROGRESS REPORT ---
Subjective Progress Note for:: 05/19/18 Subjective:: Patient was seen by the bedside, she was admitted yesterday for the management of extensive pneumonia, she seemed to be responding to treatment Reason For Visit: ACUTE HYPOXEMIC RESPIRATORY FAILURE,EXTENSIVE Physical Exam Vital Signs: Temp Pulse Resp BP Pulse Ox 97.2 F 99 16 125/73 97 05/19/18 18:40 05/19/18 18:40 05/19/18 18:40 05/19/18 18:40 05/19/18 18:40 Intake & Output 05/18/18 05/19/18 05/20/18 06:59 06:59 06:59 Intake Total 1500 1050 Balance 1500 1050 Weight 82.5 kg General appearance: PRESENT: no acute distress Eye exam: PRESENT: PERRLA Respiratory exam: PRESENT: rhonchi Cardiovascular exam: PRESENT: +S1, +S2 GI/Abdominal exam: PRESENT: soft Neurological exam: PRESENT: alert, CN II-XII grossly intact Results Laboratory Results: 05/19/18 05:06 05/19/18 05:06 05/19/18 05/19/18 05:06 05:06 WBC 8.6 RBC 4.32 Hgb 14.2 Hct 41.3 MCV 96 MCH 32.9 MCHC 34.4 RDW 14.1 H Plt Count 296 Seg Neutrophils % 72.8 Lymphocytes % 15.0 Monocytes % 12.1 Eosinophils % 0.0 Basophils % 0.1 Absolute Neutrophils 6.3 Absolute Lymphocytes 1.3 Absolute Monocytes 1.0 Absolute Eosinophils 0.0 Absolute Basophils 0.0 Sodium 140.6 Potassium 4.5 Chloride 107 Carbon Dioxide 25 Anion Gap 9 BUN 16 Creatinine 0.74 Est GFR ( Amer) > 60 Est GFR (Non-Af Amer) > 60 Glucose 126 H Calcium 9.0 Total Bilirubin 0.3 AST 14 ALT 29 Alkaline Phosphatase 90 Total Protein 6.7 Albumin 3.6 05/18/18 05/18/18 05/18/18 10:40 10:40 16:12 Creatine Kinase 54 CK-MB (CK-2) 1.67 Troponin I < 0.012 NT-Pro-B Natriuret Pep 155 Cancelled Impressions: Chest X-Ray 05/18/18 10:24 IMPRESSION: Emphysematous change without other evidence of acute cardiopulmonary process. Chest/Abdomen CTA 05/18/18 13:06 IMPRESSION: 1. No evidence for acute pulmonary emboli. 2. Fairly extensive ground-glass attenuated areas and airspace nodular opacities in the right upper and right middle lobes may be on the basis of pneumonia. Correlation suggested and follow-up noncontrast CT chest examination in three months to document for interval resolution. 3. Borderline to mildly prominent mediastinal and hilar lymph nodes. 4. Additional findings as above. Assessment & Plan - Diagnosis (1) Acute hypoxemic respiratory failure Is this a current diagnosis for this admission?: Yes Plan: She has acute hypoxemic respiratory failure, patient not presently requiring noninvasive positive pressure ventilation she will be treated with nasal cannula oxygen at 2 L/min (2) Pneumonia involving right lung Qualifiers: Pneumonia type: due to unspecified organism Lung location: unspecified part of lung Qualified Code(s): J18.9 - Pneumonia, unspecified organism Is this a current diagnosis for this admission?: Yes Plan: Continue IV antibiotic (3) COPD (chronic obstructive pulmonary disease) Qualifiers: COPD type: unspecified COPD Qualified Code(s): J44.9 - Chronic obstructive pulmonary disease, unspecified Is this a current diagnosis for this admission?: Yes Plan: She has COPD, continue bronchodilators
[2018-05-20 04:59] LABS: ABSOLUTE EOSINOPHILS # (AUTO) 0.2 10^3/uL (0.0-0.6); ABSOLUTE LYMPHOCYTES (AUTO) 2.5 10^3/uL (0.5-4.7); ABSOLUTE MONOCYTES (AUTO) 0.9 10^3/uL (0.1-1.4); ABSOLUTE NEUT (AUTO) 3.9 10^3/uL (1.7-8.2); BASOPHILS % (AUTO) 0.3 % (0-2); EOSINOPHILS % (AUTO) 2.8 % (0-6); HEMATOCRIT 40.3 % (36.0-47.0); HEMOGLOBIN 13.6 g/dL (12.0-15.5); LYMPHOCYTES % (AUTO) 33.2 % (13-45); MEAN CORPUSCULAR HEMOGLOBIN 32.3 pg (27.0-33.4); MEAN CORPUSCULAR HGB CONC 33.8 g/dL (32.0-36.0); MEAN CORPUSCULAR VOLUME 96 fl (80-97); MONOCYTES % (AUTO) 11.6 % (3-13); PLATELET COUNT 271 10^3/uL (150-450); RED BLOOD COUNT 4.22 10^6/uL (3.72-5.28); RED CELL DISTRIBUTION WIDTH 14.2 % (11.5-14.0); SEGMENTED NEUTROPHILS % (AUTO) 52.1 % (42-78); TOTAL CELLS COUNTED % (AUTO) 100 %; WHITE BLOOD COUNT 7.5 10^3/uL (4.0-10.5)
[2018-05-20] MEDS: NORMAL SALINE 1000 ML 1,000 ML IV PRN ×2 (05:15→10:30)
[2018-05-20 05:26] LABS: ALANINE AMINOTRANSFERASE 24 U/L (9-52); ALBUMIN 3.2 g/dL (3.5-5.0); ALKALINE PHOSPHATASE 78 U/L (38-126); ANION GAP 6 (5-19); ASPARTATE AMINO TRANSFERASE 15 U/L (14-36); BILIRUBIN,DIRECT 0.2 mg/dL (0.0-0.4); BILIRUBIN,TOTAL 0.3 mg/dL (0.2-1.3); BLOOD UREA NITROGEN 20 mg/dL (7-20); CALCIUM 8.9 mg/dL (8.4-10.2); CARBON DIOXIDE 22 mmol/L (22-30); CHLORIDE 112 mmol/L (98-107); GLUCOSE 87 mg/dL (75-110); POTASSIUM 4.1 mmol/L (3.6-5.0); SODIUM 140.1 mmol/L (137-145); TOTAL PROTEIN 6.1 g/dL (6.3-8.2)
[2018-05-20] MEDS: IPRATROPIUM/ALBUTEROL 0.5-2.5 MG/3 ML AMPUL NEB PRN (08:04)
[2018-05-20] MEDS: CEFEPIME HCL 2 GM in DEXTROSE 5%-WATER 50 ML IV SCH ×2 (10:22→21:11)
[2018-05-20] MEDS: ENOXAPARIN SODIUM INJ 40 MG/0.4 ML DISP.SYRIN SUBCUT SCH (10:23)
--- NOTE | 2018-05-20 12:45 | PDOC PROGRESS REPORT ---
Subjective Progress Note for:: 05/20/18 Subjective:: Patient was admitted because of the COPD and extensive pneumonia Patient was currently on cefepime and Levaquin Patient's feeling better Denied any chest pain No fever no chills Reason For Visit: ACUTE HYPOXEMIC RESPIRATORY FAILURE,EXTENSIVE Physical Exam Vital Signs: Temp Pulse Resp BP Pulse Ox 97.5 F 95 18 130/56 H 91 L 05/20/18 12:23 05/20/18 12:29 05/20/18 12:23 05/20/18 12:23 05/20/18 12:23 Intake & Output 05/19/18 05/20/18 05/21/18 06:59 06:59 06:59 Intake Total 1500 3172 Balance 1500 3172 Weight 82.5 kg 83.6 kg General appearance: PRESENT: no acute distress, well-developed, well-nourished Head exam: PRESENT: atraumatic, normocephalic Eye exam: PRESENT: conjunctiva pink, EOMI, PERRLA. ABSENT: scleral icterus Ear exam: PRESENT: normal external ear exam Mouth exam: PRESENT: moist, tongue midline Neck exam: PRESENT: full ROM. ABSENT: carotid bruit, JVD, lymphadenopathy, thyromegaly Respiratory exam: PRESENT: decreased breath sounds Cardiovascular exam: PRESENT: RRR. ABSENT: diastolic murmur, rubs, systolic [place] Vascular exam: PRESENT: normal capillary refill GI/Abdominal exam: PRESENT: normal bowel sounds, soft. ABSENT: distended, guarding, mass, organolmegaly, rebound, tenderness Rectal exam: PRESENT: deferred Neurological exam: PRESENT: alert, awake, oriented to person, oriented to place, oriented to time, oriented to situation, CN II-XII grossly intact. ABSENT: motor sensory deficit Psychiatric exam: PRESENT: appropriate affect, normal mood. ABSENT: homicidal ideation, suicidal ideation Skin exam: PRESENT: dry, intact, warm. ABSENT: cyanosis, rash Results Laboratory Results: 05/20/18 04:07 05/20/18 04:07 05/20/18 05/20/18 04:07 04:07 WBC 7.5 RBC 4.22 Hgb 13.6 Hct 40.3 MCV 96 MCH 32.3 MCHC 33.8 RDW 14.2 H Plt Count 271 Seg Neutrophils % 52.1 Lymphocytes % 33.2 Monocytes % 11.6 Eosinophils % 2.8 Basophils % 0.3 Absolute Neutrophils 3.9 Absolute Lymphocytes 2.5 Absolute Monocytes 0.9 Absolute Eosinophils 0.2 Absolute Basophils 0.0 Sodium 140.1 Potassium 4.1 Chloride 112 H Carbon Dioxide 22 Anion Gap 6 BUN 20 Creatinine 0.71 Est GFR ( Amer) > 60 Est GFR (Non-Af Amer) > 60 Glucose 87 Calcium 8.9 Total Bilirubin 0.3 AST 15 ALT 24 Alkaline Phosphatase 78 Total Protein 6.1 L Albumin 3.2 L 05/18/18 11:00 Clean Catch Midstream Urine Culture - Final Staph Coagulase Negative 05/18/18 05/18/18 05/18/18 10:40 10:40 16:12 Creatine Kinase 54 CK-MB (CK-2) 1.67 Troponin I < 0.012 NT-Pro-B Natriuret Pep 155 Cancelled Impressions: Chest X-Ray 05/18/18 10:24 IMPRESSION: Emphysematous change without other evidence of acute cardiopulmonary process. Chest/Abdomen CTA 05/18/18 13:06 IMPRESSION: 1. No evidence for acute pulmonary emboli. 2. Fairly extensive ground-glass attenuated areas and airspace nodular opacities in the right upper and right middle lobes may be on the basis of pneumonia. Correlation suggested and follow-up noncontrast CT chest examination in three months to document for interval resolution. 3. Borderline to mildly prominent mediastinal and hilar lymph nodes. 4. Additional findings as above. Assessment & Plan - Diagnosis (1) Acute hypoxemic respiratory failure Is this a current diagnosis for this admission?: Yes Plan: Currently all improving continues the nasal cannula oxygen (2) Pneumonia Qualifiers: Pneumonia type: due to unspecified organism Laterality: right Lung location: upper lobe of lung Qualified Code(s): J18.1 - Lobar pneumonia, unspecified organism Is this a current diagnosis for this admission?: Yes Plan: Continues to IV antibiotic (3) COPD (chronic obstructive pulmonary disease) Qualifiers: COPD type: unspecified COPD Qualified Code(s): J44.9 - Chronic obstructive pulmonary disease, unspecified Is this a current diagnosis for this admission?: Yes Plan: Continues to nebulizer treatments - Time Time Spent with patient: 15-24 minutes Medications reviewed and adjusted accordingly: Yes Anticipated discharge: Home Within: Other - Plan Summary Plan Summary: Reviewed all the charts review the labs Continues to current medications
[2018-05-20] MEDS: LEVOFLOXACIN 750 MG/D5W RTU 750 MG/150 ML RTUPB IV SCH (17:31)
[2018-05-21] MEDS: NORMAL SALINE 1000 ML 1,000 ML IV PRN (03:12)
[2018-05-21 06:37] LABS: ABSOLUTE EOSINOPHILS # (AUTO) 0.2 10^3/uL (0.0-0.6); ABSOLUTE LYMPHOCYTES (AUTO) 2.1 10^3/uL (0.5-4.7); ABSOLUTE NEUT (AUTO) 4.7 10^3/uL (1.7-8.2); BASOPHILS % (AUTO) 0.2 % (0-2); EOSINOPHILS % (AUTO) 2.4 % (0-6); HEMATOCRIT 40.3 % (36.0-47.0); HEMOGLOBIN 13.6 g/dL (12.0-15.5); LYMPHOCYTES % (AUTO) 26.3 % (13-45); MEAN CORPUSCULAR HEMOGLOBIN 32.3 pg (27.0-33.4); MEAN CORPUSCULAR HGB CONC 33.9 g/dL (32.0-36.0); MEAN CORPUSCULAR VOLUME 95 fl (80-97); MONOCYTES % (AUTO) 12.8 % (3-13); PLATELET COUNT 298 10^3/uL (150-450); RED BLOOD COUNT 4.23 10^6/uL (3.72-5.28); RED CELL DISTRIBUTION WIDTH 14.4 % (11.5-14.0); SEGMENTED NEUTROPHILS % (AUTO) 58.3 % (42-78); TOTAL CELLS COUNTED % (AUTO) 100 %
[2018-05-21 07:00] LABS: ALANINE AMINOTRANSFERASE 31 U/L (9-52); ALBUMIN 3.3 g/dL (3.5-5.0); ALKALINE PHOSPHATASE 74 U/L (38-126); ANION GAP 7 (5-19); ASPARTATE AMINO TRANSFERASE 16 U/L (14-36); BILIRUBIN,DIRECT 0.3 mg/dL (0.0-0.4); BILIRUBIN,TOTAL 0.4 mg/dL (0.2-1.3); BLOOD UREA NITROGEN 17 mg/dL (7-20); CALCIUM 8.9 mg/dL (8.4-10.2); CARBON DIOXIDE 25 mmol/L (22-30); CHLORIDE 106 mmol/L (98-107); GLUCOSE 95 mg/dL (75-110); POTASSIUM 4.3 mmol/L (3.6-5.0); SODIUM 137.9 mmol/L (137-145); TOTAL PROTEIN 6.2 g/dL (6.3-8.2)
[2018-05-21] MEDS: IPRATROPIUM/ALBUTEROL 0.5-2.5 MG/3 ML AMPUL NEB PRN (09:29)
[2018-05-21] MEDS: CEFEPIME HCL 2 GM in DEXTROSE 5%-WATER 50 ML IV SCH ×2 (09:38→21:21)
[2018-05-21] MEDS: ENOXAPARIN SODIUM INJ 40 MG/0.4 ML DISP.SYRIN SUBCUT SCH (09:38)
--- NOTE | 2018-05-21 10:32 | PDOC PROGRESS REPORT ---
Subjective Progress Note for:: 05/21/18 Subjective:: She is feeling much better Denied any chest pain to than any shortness of the breath Reason For Visit: ACUTE HYPOXEMIC RESPIRATORY FAILURE,EXTENSIVE Physical Exam Vital Signs: Temp Pulse Resp BP Pulse Ox 97.8 F 83 18 122/62 93 05/21/18 08:21 05/21/18 09:30 05/21/18 09:30 05/21/18 08:21 05/21/18 09:30 Intake & Output 05/20/18 05/21/18 05/22/18 06:59 06:59 06:59 Intake Total 3172 2822 Balance 3172 2822 Weight 83.6 kg 86.3 kg General appearance: PRESENT: no acute distress, well-developed, well-nourished Head exam: PRESENT: atraumatic, normocephalic Eye exam: PRESENT: conjunctiva pink, EOMI, PERRLA. ABSENT: scleral icterus Ear exam: PRESENT: normal external ear exam Mouth exam: PRESENT: moist, tongue midline Neck exam: PRESENT: full ROM. ABSENT: carotid bruit, JVD, lymphadenopathy, thyromegaly Respiratory exam: PRESENT: clear to auscultation mayra Cardiovascular exam: PRESENT: RRR. ABSENT: diastolic murmur, rubs, systolic murmur Vascular exam: PRESENT: normal capillary refill GI/Abdominal exam: PRESENT: normal bowel sounds, soft. ABSENT: distended, guarding, mass, organolmegaly, rebound, tenderness Rectal exam: PRESENT: deferred Musculoskeletal exam: PRESENT: ambulatory Neurological exam: PRESENT: alert, awake, oriented to person, oriented to place, oriented to time, oriented to situation, CN II-XII grossly intact. ABSENT: motor sensory deficit Psychiatric exam: PRESENT: appropriate affect, normal mood. ABSENT: homicidal ideation, suicidal ideation Skin exam: PRESENT: dry, intact, warm. ABSENT: cyanosis, rash Results Laboratory Results: 05/21/18 06:01 05/21/18 06:01 05/21/18 05/21/18 06:01 06:01 WBC 8.0 RBC 4.23 Hgb 13.6 Hct 40.3 MCV 95 MCH 32.3 MCHC 33.9 RDW 14.4 H Plt Count 298 Seg Neutrophils % 58.3 Lymphocytes % 26.3 Monocytes % 12.8 Eosinophils % 2.4 Basophils % 0.2 Absolute Neutrophils 4.7 Absolute Lymphocytes 2.1 Absolute Monocytes 1.0 Absolute Eosinophils 0.2 Absolute Basophils 0.0 Sodium 137.9 Potassium 4.3 Chloride 106 Carbon Dioxide 25 Anion Gap 7 BUN 17 Creatinine 0.70 Est GFR ( Amer) > 60 Est GFR (Non-Af Amer) > 60 Glucose 95 Calcium 8.9 Total Bilirubin 0.4 AST 16 ALT 31 Alkaline Phosphatase 74 Total Protein 6.2 L Albumin 3.3 L 05/18/18 11:00 Clean Catch Midstream Urine Culture - Final Staph Coagulase Negative 05/18/18 05/18/18 05/18/18 10:40 10:40 16:12 Creatine Kinase 54 CK-MB (CK-2) 1.67 Troponin I < 0.012 NT-Pro-B Natriuret Pep 155 Cancelled Impressions: Chest X-Ray 05/18/18 10:24 IMPRESSION: Emphysematous change without other evidence of acute cardiopulmonary process. Chest/Abdomen CTA 05/18/18 13:06 IMPRESSION: 1. No evidence for acute pulmonary emboli. 2. Fairly extensive ground-glass attenuated areas and airspace nodular opacities in the right upper and right middle lobes may be on the basis of pneumonia. Correlation suggested and follow-up noncontrast CT chest examination in three months to document for interval resolution. 3. Borderline to mildly prominent mediastinal and hilar lymph nodes. 4. Additional findings as above. Assessment & Plan - Diagnosis (1) Acute hypoxemic respiratory failure Is this a current diagnosis for this admission?: Yes Plan: Currently doing well (2) Pneumonia Qualifiers: Pneumonia type: due to unspecified organism Laterality: right Lung location: upper lobe of lung Qualified Code(s): J18.1 - Lobar pneumonia, unspecified organism Is this a current diagnosis for this admission?: Yes Plan: Continues to IV antibiotic (3) COPD (chronic obstructive pulmonary disease) Qualifiers: COPD type: unspecified COPD Qualified Code(s): J44.9 - Chronic obstructive pulmonary disease, unspecified Is this a current diagnosis for this admission?: Yes Plan: Continues to nebulizer treatments - Time Time Spent with patient: 15-24 minutes Medications reviewed and adjusted accordingly: Yes Anticipated discharge: Home - Plan Summary Plan Summary: DC the IV fluid continues to IV antibiotic
[2018-05-21] MEDS: LEVOFLOXACIN 750 MG/D5W RTU 750 MG/150 ML RTUPB IV SCH (18:02)
[2018-05-22] MEDS: IPRATROPIUM/ALBUTEROL 0.5-2.5 MG/3 ML AMPUL NEB PRN (08:40)
[2018-05-22] MEDS: ENOXAPARIN SODIUM INJ 40 MG/0.4 ML DISP.SYRIN SUBCUT SCH (10:02)
[2018-05-22] MEDS: CEFEPIME HCL 2 GM in DEXTROSE 5%-WATER 50 ML IV SCH ×2 (10:03→21:21)
--- NOTE | 2018-05-22 10:15 | PDOC PROGRESS REPORT ---
Subjective Progress Note for:: 05/22/18 Subjective:: She is feeling much better Denied any chest pain to than any shortness of the breath Reason For Visit: ACUTE HYPOXEMIC RESPIRATORY FAILURE,EXTENSIVE Physical Exam Vital Signs: Temp Pulse Resp BP Pulse Ox 98.0 F 89 18 124/76 87 L 05/22/18 03:02 05/22/18 08:41 05/22/18 08:41 05/22/18 03:02 05/22/18 08:41 Intake & Output 05/21/18 05/22/18 05/23/18 06:59 06:59 06:59 Intake Total 2822 2773 Balance 2822 2773 Weight 86.3 kg 83.9 kg General appearance: PRESENT: no acute distress, well-developed, well-nourished Head exam: PRESENT: atraumatic, normocephalic Eye exam: PRESENT: conjunctiva pink, EOMI, PERRLA. ABSENT: scleral icterus Ear exam: PRESENT: normal external ear exam Mouth exam: PRESENT: moist, tongue midline Neck exam: PRESENT: full ROM. ABSENT: carotid bruit, JVD, lymphadenopathy, thyromegaly Respiratory exam: PRESENT: clear to auscultation mayra Cardiovascular exam: PRESENT: RRR. ABSENT: diastolic murmur, rubs, systolic murmur Vascular exam: PRESENT: normal capillary refill GI/Abdominal exam: PRESENT: normal bowel sounds, soft. ABSENT: distended, guarding, mass, organolmegaly, rebound, tenderness Rectal exam: PRESENT: deferred Musculoskeletal exam: PRESENT: ambulatory Neurological exam: PRESENT: alert, awake, oriented to person, oriented to place, oriented to time, oriented to situation, CN II-XII grossly intact. ABSENT: motor sensory deficit Psychiatric exam: PRESENT: appropriate affect, normal mood. ABSENT: homicidal ideation, suicidal ideation Skin exam: PRESENT: dry, intact, warm. ABSENT: cyanosis, rash Results Laboratory Results: 05/21/18 06:01 05/21/18 06:01 05/18/18 05/18/18 05/18/18 10:40 10:40 16:12 Creatine Kinase 54 CK-MB (CK-2) 1.67 Troponin I < 0.012 NT-Pro-B Natriuret Pep 155 Cancelled Impressions: Chest X-Ray 05/18/18 10:24 IMPRESSION: Emphysematous change without other evidence of acute cardiopulmonary process. Chest/Abdomen CTA 05/18/18 13:06 IMPRESSION: 1. No evidence for acute pulmonary emboli. 2. Fairly extensive ground-glass attenuated areas and airspace nodular opac ities in the right upper and right middle lobes may be on the basis of pneumonia. Correlation suggested and follow-up noncontrast CT chest examination in three months to document for interval resolution. 3. Borderline to mildly prominent mediastinal and hilar lymph nodes. 4. Additional findings as above. Assessment & Plan - Diagnosis (1) Acute hypoxemic respiratory failure Is this a current diagnosis for this admission?: Yes Plan: Currently doing well (2) Pneumonia Qualifiers: Pneumonia type: due to unspecified organism Laterality: right Lung location: upper lobe of lung Qualified Code(s): J18.1 - Lobar pneumonia, unspecified organism Is this a current diagnosis for this admission?: Yes Plan: Continues to IV antibiotic (3) COPD (chronic obstructive pulmonary disease) Qualifiers: COPD type: unspecified COPD Qualified Code(s): J44.9 - Chronic obstructive pulmonary disease, unspecified Is this a current diagnosis for this admission?: Yes Plan: Continues to nebulizer treatments - Time Time Spent with patient: 15-24 minutes Medications reviewed and adjusted accordingly: Yes Anticipated discharge: Other Within: Other - Plan Summary Plan Summary: Continues IV antibiotic
[2018-05-22] MEDS: LEVOFLOXACIN 750 MG/D5W RTU 750 MG/150 ML RTUPB IV SCH (17:52)
[2018-05-23 05:02] LABS: ABSOLUTE EOSINOPHILS # (AUTO) 0.3 10^3/uL (0.0-0.6); ABSOLUTE LYMPHOCYTES (AUTO) 2.1 10^3/uL (0.5-4.7); ABSOLUTE NEUT (AUTO) 5.3 10^3/uL (1.7-8.2); BASOPHILS % (AUTO) 0.4 % (0-2); EOSINOPHILS % (AUTO) 3.8 % (0-6); HEMATOCRIT 41.2 % (36.0-47.0); LYMPHOCYTES % (AUTO) 24.1 % (13-45); MEAN CORPUSCULAR HEMOGLOBIN 32.4 pg (27.0-33.4); MEAN CORPUSCULAR VOLUME 95 fl (80-97); MONOCYTES % (AUTO) 11.3 % (3-13); PLATELET COUNT 288 10^3/uL (150-450); RED BLOOD COUNT 4.33 10^6/uL (3.72-5.28); SEGMENTED NEUTROPHILS % (AUTO) 60.4 % (42-78); TOTAL CELLS COUNTED % (AUTO) 100 %; WHITE BLOOD COUNT 8.7 10^3/uL (4.0-10.5)
[2018-05-23 05:30] LABS: ANION GAP 7 (5-19); BLOOD UREA NITROGEN 18 mg/dL (7-20); CALCIUM 9.7 mg/dL (8.4-10.2); CARBON DIOXIDE 25 mmol/L (22-30); CHLORIDE 104 mmol/L (98-107); GLUCOSE 111 mg/dL (75-110); POTASSIUM 4.5 mmol/L (3.6-5.0); SODIUM 136.1 mmol/L (137-145)
[2018-05-23] MEDS: ENOXAPARIN SODIUM INJ 40 MG/0.4 ML DISP.SYRIN SUBCUT SCH (09:37)
[2018-05-23] MEDS: CEFEPIME HCL 2 GM in DEXTROSE 5%-WATER 50 ML IV SCH ×2 (09:37→21:36)
[2018-05-23] MEDS ORDERED: LEVOFLOXACIN 750 MG TABLET PO SCH (18:00)
[2018-05-23] MEDS: IPRATROPIUM/ALBUTEROL 0.5-2.5 MG/3 ML AMPUL NEB PRN (18:23)
--- NOTE | 2018-05-23 20:51 | PDOC DISCHARGE SUMMARY ---
General - Admit/Disc Date/PCP Admission Date/Primary Care Provider: 05/18/18 14:46 ARTIS VENEGAS MD Discharge Date: 05/23/18 - Discharge Diagnosis (1) Acute hypoxemic respiratory failure Is this a current diagnosis for this admission?: Yes (2) Pneumonia involving right lung Is this a current diagnosis for this admission?: Yes (3) COPD (chronic obstructive pulmonary disease) Is this a current diagnosis for this admission?: Yes - Additional Information Resuscitation Status: Full Code Prescriptions: Levofloxacin [Levaquin 750 mg Tablet] 750 mg PO DAILY #5 tab Home Medications: RX: Albuterol Sulfate [Proair HFA Inhalation Aerosol 8.5 gm MDI] 1 puff IH Q4 PRN 05/18/18 RX: Aspirin [Ecotrin] 81 mg PO DAILY 05/18/18 RX: Pravastatin Sodium [Pravachol] 10 mg PO QHS 05/18/18 RX: Tiotropium [employer] [facility] [Spiriva Handihaler 5 Cap/Kit (18 Mcg/Cap)] 1 cap IH DAILY 05/18/18 Levofloxacin [Levaquin 750 mg Tablet] 750 mg PO DAILY #5 tab 05/23/18 History of Present Illness History of Present Illness: NAN ALMEIDA is a 72 year old female, She has a history of chronic obstructive pulmonary disease, she came to the emergency room for evaluation of shortness of breath, cough she was in the emergency room yesterday for the same problem she was evaluated she was prescribed medication and discharged home, she returned back again to the emergency room today for evaluation of shortness of breath, in the emergency room arterial blood gas was obtained, it demonstrated pH 7.39, PCO2 54.4, bicarbonate 24.5, PCO2 [address] angiogram of the chest was obtained, it demonstrated right upper lobe, right middle lobe fairly extensive groundglass attenuated areas and he has space nodular opacities there is a background of emphysematous changes there was no blood clot Hospital Course Hospital Course: Patient was admitted for the management of involving the right long with associated acute hypoxemic respiratory failure, she was treated with IV antibiotic with improvement in symptoms., She required oxygen via nasal cannula Physical Exam Vital Signs: Temp Pulse Resp BP Pulse Ox 97.7 F 112 H 18 127/57 H 90 L 05/23/18 20:10 05/23/18 20:10 05/23/18 20:10 05/23/18 20:10 05/23/18 20:10 Intake & Output 05/22/18 05/23/18 05/24/18 06:59 06:59 06:59 Intake Total 2773 1903 50 Balance 2773 1903 50 Weight 83.9 kg 84.2 kg General appearance: PRESENT: no acute distress, well-developed, well-nourished Head exam: PRESENT: atraumatic, normocephalic Eye exam: PRESENT: conjunctiva pink, EOMI, PERRLA Ear exam: PRESENT: normal external ear exam Mouth exam: PRESENT: moist, tongue midline Neck exam: PRESENT: full ROM Respiratory exam: PRESENT: clear to auscultation mayra Cardiovascular exam: PRESENT: RRR, +S1, systolic murmur Pulses: PRESENT: normal dorsalis pedis pul, +2 pedal pulses bilateral Vascular exam: PRESENT: normal capillary refill GI/Abdominal exam: PRESENT: normal bowel sounds, soft Rectal exam: PRESENT: deferred Neurological exam: PRESENT: alert, awake, oriented to person, oriented to place, oriented to time, oriented to situation, CN II-XII grossly intact Psychiatric exam: PRESENT: appropriate affect, normal mood Skin exam: PRESENT: dry, intact, warm Results Laboratory Results: 05/23/18 04:15 05/23/18 04:15 05/23/18 05/23/18 04:15 04:15 WBC 8.7 RBC 4.33 Hgb 14.0 Hct 41.2 MCV 95 MCH 32.4 MCHC 34.0 RDW 14.0 Plt Count 288 Seg Neutrophils % 60.4 Lymphocytes % 24.1 Monocytes % 11.3 Eosinophils % 3.8 Basophils % 0.4 Absolute Neutrophils 5.3 Absolute Lymphocytes 2.1 Absolute Monocytes 1.0 Absolute Eosinophils 0.3 Absolute Basophils 0.0 Sodium 136.1 L Potassium 4.5 Chloride 104 Carbon Dioxide 25 Anion Gap 7 BUN 18 Creatinine 0.68 Est GFR ( Amer) > 60 Est GFR (Non-Af Amer) > 60 Glucose 111 H Calcium 9.7 05/18/18 16:12 Blood Blood Culture - Final NO GROWTH IN 5 DAYS 05/18/18 14:40 Blood Blood Culture - Final Micrococcus Species 05/18/18 05/18/18 05/18/18 10:40 10:40 16:12 Creatine Kinase 54 CK-MB (CK-2) 1.67 Troponin I < 0.012 NT-Pro-B Natriuret Pep 155 Cancelled Impressions: Chest X-Ray 05/18/18 10:24 IMPRESSION: Emphysematous change without other evidence of acute cardiopulmonary process. Chest/Abdomen CTA 05/18/18 13:06 IMPRESSION: 1. No evidence for acute pulmonary emboli. 2. Fairly extensive ground-glass attenuated areas and airspace nodular opacities in the right upper and right middle lobes may be on the basis of pneumonia. Correlation suggested and follow-up noncontrast CT chest examination in three months to document for interval resolution. 3. Borderline to mildly prominent mediastinal and hilar lymph nodes. 4. Additional findings as above. Qualifiers - * PATIENT BEING DISCHARGED WITH ANY OF THE FOLLOWING DIAGNOSIS: No
[2018-05-24 08:02] LABS: ANION GAP 6 (5-19); BLOOD UREA NITROGEN 18 mg/dL (7-20); CALCIUM 9.4 mg/dL (8.4-10.2); CARBON DIOXIDE 31 mmol/L (22-30); CHLORIDE 101 mmol/L (98-107); GLUCOSE 93 mg/dL (75-110); POTASSIUM 4.7 mmol/L (3.6-5.0); SODIUM 138.3 mmol/L (137-145)
[2018-05-24 08:45] VITALS: BP 106/63
[2018-05-24] MEDS: ENOXAPARIN SODIUM INJ 40 MG/0.4 ML DISP.SYRIN SUBCUT SCH (09:59)
[2018-05-24] MEDS: CEFEPIME HCL 2 GM in DEXTROSE 5%-WATER 50 ML IV SCH (09:59)
== END 2018-05-24 12:11 | disposition home or self-care (01) | DRG 193 ==
LOC: ER 09:57 → EH 14:46 → 3W 19:37
PROVIDERS: ADMIT Internal Medicine; ATTEND Internal Medicine
DX: J18.1 Lobar pneumonia, unspecified organism (principal); J96.01 Acute respiratory failure with hypoxia; J44.9 Chronic obstructive pulmonary disease, unspecified; Z87.891 Personal history of nicotine dependence; Z87.01 Personal history of pneumonia (recurrent)
CPT/HCPCS: 36415; 71046; 71275; 80048; 80053; 81001; 82550; 82553; 82803; 83036; 83880; 84484; 85025; 85379; 87040; 87077; 87086; 93005; 93010; 94640; 96374; 99285; J0456; J0692; J0696; J1650; J1956; J2930; J3490; J7030; J7620

== ENCOUNTER 2018-09-27 12:31 | Inpatient (IN) | payer BC, MEDICARE ==
[2018-09-27] MEDS ORDERED: ONDANSETRON HCL INJ/PF 4 MG/2 ML SDV IV ONE (13:45)
[2018-09-27] MEDS ORDERED: NORMAL SALINE 1000 ML 1,000 ML IV ONE ×2 (13:45→15:43)
--- NOTE | 2018-09-27 13:47 | ER Document Report ---
ED Medical Screen (RME) - General Chief Complaint: Nausea/Vomiting/Diarrhea Stated Complaint: DIARRHEA Time Seen by Provider: 09/27/18 13:45 Primary Care Provider: ARTIS VENEGAS MD [Primary Care Provider] - Follow up as needed Notes: Patient is a 73-year-old female with a history of COPD and high cholesterol pr esents to the emergency department with a chief complaint of diarrhea. Patient states she has had diarrhea 4-5 times per day over the past 3 to 4 days. Patient states she feels like every time she eats it just goes right through her. Patient denies sick contacts or fever. Patient is reporting abdominal pain around the umbilicus and right mid abdomen. Patient reports nausea without vomiting. Patient states she has noted a small amount of bright red blood in the diarrhea. Patient denies urinary symptoms. TRAVEL OUTSIDE OF THE [place] IN LAST 30 DAYS: No - Related Data Allergies/Adverse Reactions: No Known Allergies Allergy (Verified 05/18/18 10:22) Past Medical History - Social History Family history: Reviewed & Not Pertinent Pulmonary Medical History: Reports: Hx COPD, Hx Pneumonia Renal/ Medical History: Denies: Hx Peritoneal Dialysis Past Surgical History: Reports: Other - Cataract surgery - Immunizations History of Influenza Vaccine for 11/2016 - 04/2017 Season: Yes Influenza Administration Date for 11/2016 - 04/2017 Season: 11/08/16 Physical Exam - Vital signs Vitals: Temp Pulse BP Pulse Ox 97.8 F 113 H 134/75 H 93 09/27/18 12:37 09/27/18 12:37 09/27/18 12:37 09/27/18 12:37 - Abdominal Inspection: Obese Distension: No distension Bowel sounds: Hyperactive Tenderness: Tender - tenderness to umbilicus and right mid abd Organomegaly: No organomegaly Course - Re-evaluation Re-evalutation: 09/27/18 13:47 I have greeted and performed a rapid initial assessment of this patient. A comprehensive ED assessment and evaluation of the patient, analysis of test results and completion of the medical decision making process will be conducted by additional ED providers. - Vital Signs Vital signs: Temp Pulse Resp BP Pulse Ox 97.8 F 113 H 134/75 H 93 09/27/18 12:37 09/27/18 12:37 09/27/18 12:37 09/27/18 12:37 - Laboratory Result Diagrams: 09/27/18 13:26 09/27/18 13:26 Doctor's Discharge - Discharge Referrals: ARTIS VENEGAS MD [Primary Care Provider] - Follow up as needed
[2018-09-27 13:48] LABS: ABSOLUTE EOSINOPHILS # (AUTO) 0.1 10^3/uL (0.0-0.6); ABSOLUTE LYMPHOCYTES (AUTO) 1.8 10^3/uL (0.5-4.7); ABSOLUTE MONOCYTES (AUTO) 1.5 10^3/uL (0.1-1.4); ABSOLUTE NEUT (AUTO) 11.3 10^3/uL (1.7-8.2); BASOPHILS % (AUTO) 0.2 % (0-2); EOSINOPHILS % (AUTO) 0.9 % (0-6); HEMATOCRIT 42.1 % (36.0-47.0); HEMOGLOBIN 14.2 g/dL (12.0-15.5); LYMPHOCYTES % (AUTO) 11.9 % (13-45); MEAN CORPUSCULAR HEMOGLOBIN 31.1 pg (27.0-33.4); MEAN CORPUSCULAR HGB CONC 33.7 g/dL (32.0-36.0); MEAN CORPUSCULAR VOLUME 92 fl (80-97); MONOCYTES % (AUTO) 9.9 % (3-13); PLATELET COUNT 358 10^3/uL (150-450); RED BLOOD COUNT 4.56 10^6/uL (3.72-5.28); RED CELL DISTRIBUTION WIDTH 13.7 % (11.5-14.0); SEGMENTED NEUTROPHILS % (AUTO) 77.1 % (42-78); TOTAL CELLS COUNTED % (AUTO) 100 %; WHITE BLOOD COUNT 14.7 10^3/uL (4.0-10.5)
[2018-09-27 14:12] LABS: ALBUMIN 3.7 g/dL (3.5-5.0); ALKALINE PHOSPHATASE 128 U/L (38-126); ANION GAP 10 (5-19); ASPARTATE AMINO TRANSFERASE 14 U/L (14-36); BILIRUBIN,DIRECT 0.3 mg/dL (0.0-0.4); BILIRUBIN,TOTAL 0.9 mg/dL (0.2-1.3); BLOOD UREA NITROGEN 8 mg/dL (7-20); CALCIUM 9.2 mg/dL (8.4-10.2); CARBON DIOXIDE 27 mmol/L (22-30); CHLORIDE 101 mmol/L (98-107); GLUCOSE 167 mg/dL (75-110); POTASSIUM 3.8 mmol/L (3.6-5.0)
[2018-09-27] MEDS ORDERED: MORPHINE SULFATE 10 MG/ML INJ IV ONE (14:26)
--- NOTE | 2018-09-27 15:00 | ER Document Report ---
ED General - General Chief Complaint: Nausea/Vomiting/Diarrhea Stated Complaint: DIARRHEA Time Seen by Provider: 09/27/18 13:45 Primary Care Provider: ARTIS VENEGAS MD [Primary Care Provider] - Follow up as needed Mode of Arrival: Ambulatory Information source: Patient TRAVEL OUTSIDE OF THE [place] IN LAST 30 DAYS: No - HPI Notes: Patient presents complaining of 4 days of lower abdominal pain. She states she is also had diarrhea. She states the diarrhea has gradually become clear liquid over the last 4 days and now has some blood in it. The pain she has is periumbilical. It is crampy in nature. It is moderate. Does not radiate. Nothing makes it better or worse. She denies any recent hospital stays or antibiotics. No known ill contacts. She has never had any type of abdominal surgery. No previous history of similar problems. No fever sweats or chills. - Related Data Allergies/Adverse Reactions: No Known Allergies Allergy (Verified 05/18/18 10:22) Past Medical History - General Information source: Patient - Social History Smoking Status: Never Smoker Frequency of alcohol use: None Drug Abuse: None Family History: Reviewed & Not Pertinent, Arthritis Patient has suicidal ideation: No Patient has homicidal ideation: No Pulmonary Medical History: Reports: Hx COPD, Hx Pneumonia Renal/ Medical History: Denies: Hx Peritoneal Dialysis Past Surgical History: Reports: Other - Cataract surgery - Immunizations Hx Pneumococcal Vaccination: 02/08/10 Review of Systems - Review of Systems Constitutional: Weakness. denies: Chills, Fever Cardiovascular: denies: Chest pain, Dyspnea Respiratory: denies: Cough, Short of breath Gastrointestinal: Nausea -: Yes All other systems reviewed and negative Physical Exam - Vital signs Vitals: Temp Pulse BP Pulse Ox 97.8 F 113 H 134/75 H 93 09/27/18 12:37 09/27/18 12:37 09/27/18 12:37 09/27/18 12:37 Interpretation: Normal - General General appearance: Appears well, Alert - HEENT Head: Normocephalic, Atraumatic Eyes: Normal Pupils: PERRL - Respiratory Respiratory status: No respiratory distress Chest status: Nontender Breath sounds: Normal Chest palpation: Normal - Cardiovascular Rhythm: Regular, Tachycardia - [id number] Heart sounds: Normal auscultation Murmur: No - Abdominal Inspection: Normal Distension: No distension Bowel sounds: Hypoactive Tenderness: Tender - Some mild tenderness to palpation periumbilically. No rebound or guarding. Organomegaly: No organomegaly - Back Back: Normal, Nontender - Extremities General upper extremity: Normal inspection, Nontender, Normal color, Normal ROM, Normal temperature General lower extremity: Normal inspection, Nontender, Normal color, Normal ROM, Normal temperature, Normal weight bearing. No: Juan Luis's sign - Neurological Neuro grossly intact: Yes Cognition: Normal Orientation: AAOx4 Jewell Coma Scale Eye Opening: Spontaneous Jewell Coma Scale Verbal: Oriented Jewell Coma Scale Motor: Obeys Commands Jewell Coma Scale Total: 15 Speech: Normal Motor strength normal: LUE, RUE, LLE, RLE Sensory: Normal - Psychological Associated symptoms: Normal affect, Normal mood - Skin Skin Temperature: Warm Skin Moisture: Dry Skin Color: Normal Course - Re-evaluation Re-evalutation: 09/27/18 16:33 Patient reassessed approximately 4 PM. She is still tachycardic after liter fluid. Still some mild diffuse abdominal tenderness to palpation. She does have a white count. She does meet criteria for sepsis. Lactate and blood cultures have been drawn. 1-1/2 more liters of fluid have been ordered. Also antibiotics have been ordered. I have spoke with Dr. Venegas who has accepted the patient for admission. Although patient complains of blood in the stool hemoglobin and hematocrit are stable at this time. - Vital Signs Vital signs: Temp Pulse Resp BP Pulse Ox 98.8 F 107 H 16 110/67 95 09/27/18 16:27 09/27/18 16:27 09/27/18 16:27 09/27/18 16:27 09/27/18 16:27 - Laboratory Result Diagrams: 09/27/18 13:26 09/27/18 13:26 Laboratory results interpreted by me: 09/27/18 09/27/18 13:26 13:26 WBC 14.7 H Lymphocytes % 11.9 L Absolute Neutrophils 11.3 H Absolute Monocytes 1.5 H Glucose 167 H Alkaline Phosphatase 128 H Lipase 336.4 H 09/27/18 16:32 Laboratory 09/27/18 09/27/18 13:26 13:26 WBC 14.7 H RBC 4.56 Hgb 14.2 Hct 42.1 MCV 92 MCH 31.1 MCHC 33.7 RDW 13.7 Plt Count 358 Seg Neutrophils % 77.1 Lymphocytes % 11.9 L Monocytes % 9.9 Eosinophils % 0.9 Basophils % 0.2 Absolute Neutrophils 11.3 H Absolute Lymphocytes 1.8 Absolute Monocytes 1.5 H Absolute Eosinophils 0.1 Absolute Basophils 0.0 Sodium 137.5 Potassium 3.8 Chloride 101 Carbon Dioxide 27 Anion Gap 10 BUN 8 Creatinine 0.78 Est GFR ( Amer) > 60 Est GFR (Non-Af Amer) > 60 Glucose 167 H Calcium 9.2 Total Bilirubin 0.9 Direct Bilirubin 0.3 Neonat Total Bilirubin Not Reportable Neonat Direct Bilirubin Not Reportable Neonat Indirect Bili Not Reportable AST 14 ALT 14 Alkaline Phosphatase 128 H Total Protein 7.0 Albumin 3.7 Lipase 336.4 H - Diagnostic Test Radiology reviewed: Image reviewed, Reports reviewed Radiology results interpreted by me: 09/27/18 16:32 Abdomen/Pelvis CT 09/27/18 14:26 IMPRESSION: Thickening of a relatively short segment of the ascending colon and hepatic flexure. Focal colitis cannot be excluded. Mild surrounding inflamma tion. Remainder of the colon is unremarkable. Discharge - Discharge Clinical Impression: Colitis Sepsis Qualifiers: Sepsis type: sepsis due to unspecified organism Sepsis acute organ dysfunction status: without acute organ dysfunction Qualified Code(s): A41.9 - Sepsis, unspecified organism Condition: Stable Disposition: ADMITTED INPATIENT Admitting Provider: [facility] Unit Admitted: Medical Floor Referrals: ARTIS VENEGAS MD [Primary Care Provider] - Follow up as needed
--- NOTE | 2018-09-27 15:15 | RADIOLOGY REPORT (SQ) ---
EXAM DESCRIPTION: CT ABD/PELVIS WITH IV ONLY COMPLETED DATE/TIME: 09/27/2018 3:01 pm REASON FOR STUDY: linda umbilical pain COMPARISON: None. TECHNIQUE: CT scan of the abdomen and pelvis performed using helical scanning technique with dynamic intravenous contrast injection. No oral contrast. Images reviewed with lung, soft tissue, and bone windows. Reconstructed coronal and sagittal MPR images reviewed. Delayed images for evaluation of the urinary system also acquired. All images stored on PACS. All CT scanners at this facility use dose modulation, iterative reconstruction, and/or weight based d osing when appropriate to reduce radiation dose to as low as reasonably achievable (ALARA). [facility]: Dose Right [facility]: CareDose [facility]: Dose Right [facility]: Teradose 4D [facility]: [employer] CONTRAST TYPE AND DOSE: contrast/concentration: Isovue 350.00 mg/ml; Total Contrast Delivered: 83.0 ml; Total Saline Delivered: 69.0 ml RENAL FUNCTION: BUN 8, creatinine 0.78 RADIATION DOSE: CT Rad equipment meets quality standard of care and radiation dose reduction techniq ues were employed. CTDIvol: 12.7 - 14.7 mGy. DLP: 1324 mGy-cm.. LIMITATIONS: None. FINDINGS: LOWER CHEST: No significant findings. No nodules or infiltrates. LIVER: There is decreased attenuation throughout the liver consistent with fatty infiltration. No fo priyanka masses. SPLEEN: Normal size. No focal lesions. PANCREAS: No masses. No significant calcifications. No adjacent inflammation or peripancreatic fluid collections. Pancreatic duct not dilated. GALLBLADDER: No identified stones by CT criteria. No inflammatory changes to suggest cholecystitis. ADRENAL GLANDS: No significant masses or asymmetry. RIGHT KIDNEY AND URETER: No solid masses. No significant calcifications. No hydronephrosis or hyd roureter. LEFT KIDNEY AND URETER: No solid masses. No significant calcifications. No hydronephrosis or hydr oureter. AORTA AND VESSELS: Atherosclerotic change. No dissection. There is narrowing at the origin the lynn ac axis at least 50%. The SMA and ALMA ROSA are patent. RETROPERITONEUM: Small retroperitoneal lymph nodes are present these are nonspecific but most likely reactive. BOWEL AND PERITONEAL CAVITY: Diverticular change within the sigmoid colon. No acute diverticulitis. There is slight thickening of the ascending colonic wall as well as the hepatic flexure. This becom es less apparent in the transverse colon and descending colon. Focal colitis cannot be excluded. APPENDIX: Not visualized. PELVIS: No mass. No free fluid. Normal bladder. ABDOMINAL WALL: Small umbilical hernia containing omental fat only. BONES: No significant or acute findings. OTHER: No other significant finding. IMPRESSION: Thickening of a relatively short segment of the ascending colon and hepatic flexure. Fo priyanka colitis cannot be excluded. Mild surrounding inflammation. Remainder of the colon is unremarkab le. TECHNICAL DOCUMENTATION: JOB ID: [id number] Quality ID # [id number]: Final reports with documentation of one or more dose reduction techniques (e.g., Au tomated exposure control, adjustment of the mA and/or kV according to patient size, use of iterative reconstruction technique) 2010 [employer]- All Rights Reserved Reading location - IP/workstation name: [email or web address]
[2018-09-27] MEDS ORDERED: PIPERACILLIN/TAZOBACTAM 3.375 GM VIAL IV ONE (15:42)
[2018-09-27] MEDS ORDERED: NORMAL SALINE 1000 ML 500 ML IV ONE (15:44)
[2018-09-27] MEDS ORDERED: CIPROFLOXACIN 400 MG/D5W RTU 400 MG/200 ML RTUPB IV SCH (16:00)
[2018-09-27 17:24] LABS: APPEARANCE,URINE CLEAR; BILIRUBIN,URINE NEGATIVE (NEGATIVE); COLOR,URINE YELLOW; GLUCOSE, URINE NEGATIVE (NEGATIVE); KETONES,URINE NEGATIVE (NEGATIVE); LEUKOCYTE ESTERASE,URINE TRACE (NEGATIVE); NITRITE,URINE NEGATIVE (NEGATIVE); PROTEIN,URINE NEGATIVE (NEGATIVE); UROBILINOGEN,URINE NEGATIVE mg/dL (<2.0)
[2018-09-27 17:25] LABS: URINE SPECIFIC GRAVITY > 1.060
[2018-09-27] MEDS ORDERED: ALBUTEROL SULFATE 0.083% NEB 2.5 MG/3 ML AMPUL NEB PRN (20:33)
[2018-09-27] MEDS ORDERED: ACETAMINOPHEN 325 MG TABLET PO PRN (20:37)
[2018-09-27 21:45] LABS: FREE T4 (FREE THYROXINE) 1.17 ng/dL (0.78-2.19)
[2018-09-27] MEDS: TIOTROPIUM BROMIDE DPI 5 CAP/KIT (18 MCG/CAP) IH SCH (21:45)
[2018-09-27] MEDS: METRONIDAZOLE 500 MG/NS RTU 500 MG/100 ML RTUPB IV SCH (21:47)
[2018-09-27 21:59] LABS: THYROID STIMULATING HORMONE 1.43 uIU/mL (0.47-4.68)
[2018-09-27] MEDS ORDERED: SIMVASTATIN 10 MG TABLET PO SCH (22:00)
--- NOTE | 2018-09-27 22:04 | PDOC H&P ---
History of Present Illness Admission Date/PCP: 09/27/18 17:10 ARTIS VENEGAS MD History of Present Illness: NAN ALMEIDA is a 73 year old female,She has a history of COPD, she came to the emergency room for evaluation of 4-day history of abdominal pain vomiting and diarrhea she was particularly scared and upset when the diarrhea became bloody. In the Emergency room a CAT scan of the abdomen and pelvis with IV contrast was obtained it demonstrated narrowing at the origin of the celiac axis also found was slight thickening of the ascending colonic wall as well as the hepatic flexure there was diverticulosis but no diverticulitis. Patient's last colonoscopy is about 8 years ago,There is leukocytosis Past Medical History Pulmonary Medical History: Reports: Chronic Obstructive Pulmonary Disease (COPD), Pneumonia Past Surgical History Past Surgical History: Reports: Other - Cataract surgery Social History Smoking Status: Former Smoker Last Time Smoked: 2016 Frequency of Alcohol Use: Occasional Hx Recreational Drug Use: No Drugs: None Hx Prescription Drug Abuse: No Family History Family History: Reviewed & Not Pertinent, Arthritis Parental Family History Reviewed: Yes Children Family History Reviewed: Yes Sibling(s) Family History Reviewed.: Yes Medication/Allergy Home Medications: Pravastatin Sodium [Pravachol] 10 mg PO QHS 05/18/18 Tiotropium [place] [Spiriva Handihaler 5 Cap/Kit (18 Mcg/Cap)] 1 cap IH DAILY 05/18/18 Allergies/Adverse Reactions: No Known Allergies Allergy (Verified 05/18/18 10:22) Review of Systems Constitutional: ABSENT: chills, fever(s), headache(s), weight gain, weight loss Eyes: ABSENT: visual disturbances Ears: ABSENT: hearing changes Cardiovascular: ABSENT: chest pain, dyspnea on exertion, edema, orthropnea, palpitations Respiratory: ABSENT: cough, hemoptysis Gastrointestinal: PRESENT: abdominal pain, diarrhea, vomiting Genitourinary: ABSENT: dysuria, hematuria Musculoskeletal: ABSENT: joint swelling Integumentary: ABSENT: rash, wounds Neurological: ABSENT: abnormal gait, abnormal speech, confusion, dizziness, focal weakness, syncope Psychiatric: ABSENT: anxiety, depression, homidical ideation, suicidal ideation Endocrine: ABSENT: cold intolerance, heat intolerance, menstrual abnormalities, polydipsia, polyuria Hematologic/Lymphatic: ABSENT: easy bleeding, easy bruising, lymphadenopathy Physical Exam Vital Signs: Temp Pulse Resp BP Pulse Ox 98.8 F 107 H 18 108/65 94 09/27/18 16:27 09/27/18 16:27 09/27/18 18:01 09/27/18 19:01 09/27/18 19:01 Intake & Output 09/26/18 09/27/18 09/28/18 06:59 06:59 06:59 Intake Total 2500 Balance 2500 Weight 80.2 kg General appearance: PRESENT: no acute distress, well-developed, well-nourished Head exam: PRESENT: atraumatic, normocephalic Eye exam: PRESENT: conjunctiva pink, EOMI, PERRLA Ear exam: PRESENT: normal external ear exam Mouth exam: PRESENT: moist, tongue midline Neck exam: PRESENT: full ROM Respiratory exam: PRESENT: clear to auscultation mayra Cardiovascular exam: PRESENT: RRR, +S1, +S2 Pulses: PRESENT: normal dorsalis pedis pul, +2 pedal pulses bilateral Vascular exam: PRESENT: normal capillary refill GI/Abdominal exam: PRESENT: normal bowel sounds, soft, tenderness Rectal exam: PRESENT: deferred Neurological exam: PRESENT: alert, awake, oriented to person, oriented to place, oriented to time, oriented to situation, CN II-XII grossly intact Psychiatric exam: PRESENT: appropriate affect, normal mood Skin exam: PRESENT: dry, intact, warm Results Laboratory Results: 09/27/18 13:26 09/27/18 13:26 09/27/18 09/27/18 09/27/18 13:26 13:26 13:26 WBC 14.7 H RBC 4.56 Hgb 14.2 Hct 42.1 MCV 92 MCH 31.1 MCHC 33.7 RDW 13.7 Plt Count 358 Seg Neutrophils % 77.1 Lymphocytes % 11.9 L Monocytes % 9.9 Eosinophils % 0.9 Basophils % 0.2 Absolute Neutrophils 11.3 H Absolute Lymphocytes 1.8 Absolute Monocytes 1.5 H Absolute Eosinophils 0.1 Absolute Basophils 0.0 Sodium 137.5 Potassium 3.8 Chloride 101 Carbon Dioxide 27 Anion Gap 10 BUN 8 Creatinine 0.78 Est GFR ( Amer) > 60 Est GFR (Non-Af Amer) > 60 Glucose 167 H Lactic Acid 1.2 Calcium 9.2 Total Bilirubin 0.9 AST 14 Alkaline Phosphatase 128 H Ammonia Total Protein 7.0 Albumin 3.7 Amylase Lipase 336.4 H Urine Color Urine Appearance Urine pH Ur Specific Thornton Urine Protein Urine Glucose (UA) Urine Ketones Urine Blood Urine Nitrite Ur Leukocyte Esterase Urine WBC (Auto) Urine RBC (Auto) 09/27/18 09/27/18 09/27/18 16:37 21:00 21:00 WBC RBC Hgb Hct MCV MCH MCHC RDW Plt Count Seg Neutrophils % Lymphocytes % Monocytes % Eosinophils % Basophils % Absolute Neutrophils Absolute Lymphocytes Absolute Monocytes Absolute Eosinophils Absolute Basophils Sodium Potassium Chloride Carbon Dioxide Anion Gap BUN Creatinine Est GFR ( Amer) Est GFR (Non-Af Amer) Glucose Lactic Acid Calcium Total Bilirubin AST Alkaline Phosphatase Ammonia < 8.7 L Total Protein Albumin Amylase 44 Lipase 351.5 H Urine Color YELLOW Urine Appearance CLEAR Urine pH 6.0 Ur Specific Thornton > 1.060 Urine Protein NEGATIVE Urine Glucose (UA) NEGATIVE Urine Ketones NEGATIVE Urine Blood SMALL H Urine Nitrite NEGATIVE Ur Leukocyte Esterase TRACE H Urine WBC (Auto) 7 Urine RBC (Auto) 1 Impressions: Abdomen/Pelvis CT 09/27/18 14:26 IMPRESSION: Thickening of a relatively short segment of the ascending colon and hepatic flexure. Focal colitis cannot be excluded. Mild surrounding inflammation. Remainder of the colon is unremarkable. Assessment & Plan - Diagnosis (1) Colitis Is this a current diagnosis for this admission?: Yes Plan: Patient is admitted, she will be treated with IV Flagyl and Cipro she will need a colonoscopy after the resolution of this inflammatory process. This was explained to the patient
[2018-09-27 22:42] LABS: APPEARANCE,URINE CLEAR; BILIRUBIN,URINE NEGATIVE (NEGATIVE); COLOR,URINE YELLOW; GLUCOSE, URINE 50 mg/dL (NEGATIVE); KETONES,URINE TRACE mg/dL (NEGATIVE); LEUKOCYTE ESTERASE,URINE NEGATIVE (NEGATIVE); NITRITE,URINE NEGATIVE (NEGATIVE); PROTEIN,URINE NEGATIVE (NEGATIVE); UROBILINOGEN,URINE NEGATIVE mg/dL (<2.0)
[2018-09-27] MEDS: CIPROFLOXACIN 400 MG/D5W RTU 400 MG/200 ML RTUPB IV SCH (23:38)
[2018-09-28] LABS: URINE AMPHETAMINES SCREEN NEGATIVE; URINE BARBITURATES SCREEN NEGATIVE; URINE BENZODIAZEPINES SCREEN NEGATIVE; URINE COCAINE SCREEN NEGATIVE; URINE MARIJUANA (THC) SCREEN NEGATIVE; URINE METHADONE SCREEN NEGATIVE; URINE PHENCYCLIDINE SCREEN NEGATIVE
[2018-09-28] MEDS: METRONIDAZOLE 500 MG/NS RTU 500 MG/100 ML RTUPB IV SCH ×2 (03:08→09:18)
[2018-09-28 08:05] LABS: ABSOLUTE EOSINOPHILS # (AUTO) 0.1 10^3/uL (0.0-0.6); ABSOLUTE LYMPHOCYTES (AUTO) 1.5 10^3/uL (0.5-4.7); ABSOLUTE MONOCYTES (AUTO) 1.3 10^3/uL (0.1-1.4); ABSOLUTE NEUT (AUTO) 9.9 10^3/uL (1.7-8.2); BASOPHILS % (AUTO) 0.1 % (0-2); EOSINOPHILS % (AUTO) 1.1 % (0-6); HEMATOCRIT 37.1 % (36.0-47.0); HEMOGLOBIN 12.5 g/dL (12.0-15.5); LYMPHOCYTES % (AUTO) 11.7 % (13-45); MEAN CORPUSCULAR HEMOGLOBIN 31.2 pg (27.0-33.4); MEAN CORPUSCULAR HGB CONC 33.8 g/dL (32.0-36.0); MEAN CORPUSCULAR VOLUME 93 fl (80-97); MONOCYTES % (AUTO) 9.8 % (3-13); PLATELET COUNT 335 10^3/uL (150-450); RED BLOOD COUNT 4.01 10^6/uL (3.72-5.28); RED CELL DISTRIBUTION WIDTH 13.8 % (11.5-14.0); SEGMENTED NEUTROPHILS % (AUTO) 77.3 % (42-78); TOTAL CELLS COUNTED % (AUTO) 100 %; WHITE BLOOD COUNT 12.8 10^3/uL (4.0-10.5)
[2018-09-28 08:27] LABS: ALKALINE PHOSPHATASE 108 U/L (38-126); ANION GAP 11 (5-19); ASPARTATE AMINO TRANSFERASE 15 U/L (14-36); BILIRUBIN,DIRECT 0.3 mg/dL (0.0-0.4); BILIRUBIN,TOTAL 0.6 mg/dL (0.2-1.3); BLOOD UREA NITROGEN 5 mg/dL (7-20); CALCIUM 8.3 mg/dL (8.4-10.2); CARBON DIOXIDE 22 mmol/L (22-30); CHLORIDE 104 mmol/L (98-107); CHOLESTEROL 86.22 mg/dL (0-200); GLUCOSE 154 mg/dL (75-110); POTASSIUM 3.5 mmol/L (3.6-5.0); TOTAL PROTEIN 5.8 g/dL (6.3-8.2); TRIGLYCERIDES 125 mg/dL (<150)
[2018-09-28 08:38] LABS: DIRECT LDL 48 mg/dL (<100)
[2018-09-28] MEDS: TIOTROPIUM BROMIDE DPI 5 CAP/KIT (18 MCG/CAP) IH SCH (10:27)
[2018-09-28] MEDS: CIPROFLOXACIN 400 MG/D5W RTU 400 MG/200 ML RTUPB IV SCH (11:05)
[2018-09-28 15:13] VITALS: BP 110/67
--- NOTE | 2018-09-28 17:10 | PDOC DISCHARGE SUMMARY ---
General - Admit/Disc Date/PCP Admission Date/Primary Care Provider: 09/27/18 17:10 ARTIS VENEGAS MD Discharge Date: 09/28/18 - Discharge Diagnosis (1) Colitis Is this a current diagnosis for this admission?: Yes - Additional Information Discharge Diet: As Tolerated Discharge Activity: Activity As Tolerated Prescriptions: Ciprofloxacin HCl [Cipro 500 mg Tablet] 500 mg PO BID #20 tablet Metronidazole [Flagyl 500 mg Tablet] 500 mg PO TID #30 tablet Home Medications: Pravastatin Sodium [Pravachol] 10 mg PO QHS 05/18/18 Tiotropium [place] [Spiriva Handihaler 5 Cap/Kit (18 Mcg/Cap)] 1 cap IH DAILY 05/18/18 Ciprofloxacin HCl [Cipro 500 mg Tablet] 500 mg PO BID #20 tablet 09/28/18 Metronidazole [Flagyl 500 mg Tablet] 500 mg PO TID #30 tablet 09/28/18 History of Present Illness History of Present Illness: NAN ALMEIDA is a 73 year old female,She has a history of COPD, she came to the emergency room for evaluation of 4-day history of abdominal pain vomiting and diarrhea she was particularly scared and upset when the diarrhea became bloody. In the Emergency room a CAT scan of the abdomen and pelvis with IV contrast was obtained it demonstrated narrowing at the origin of the celiac axis also found was slight thickening of the ascending colonic wall as well as the hepatic flexure there was diverticulosis but no diverticulitis. Patient's last colonoscopy is about 8 years ago,There is leukocytosis Hospital Course Hospital Course: Patient was admitted yesterday for the management of acute colitis, she presented with abdominal pain predominantly on the right side with associated bl oody diarrhea. The stool was negative for C. difficile toxin, she was treated empirically with intravenous Flagyl and Cipro, on admission there was leukocytosis. She was seen today on rounds there is improvement in the elevated white cell count, clinically patient is also better she has less discomfort, she is tolerating food without vomiting, I felt she can be discharged home to continue p.o. antibiotic for few more days after which she will follow in the office to be scheduled for outpatient colonoscopy. Physical Exam Vital Signs: Temp Pulse Resp BP Pulse Ox 98.8 F 108 H 18 110/67 94 09/28/18 15:12 09/28/18 15:12 09/28/18 15:12 09/28/18 15:12 09/28/18 15:12 Intake & Output 09/27/18 09/28/18 09/29/18 06:59 06:59 06:59 Intake Total 3100 780 Balance 3100 780 Weight 83.9 kg General appearance: PRESENT: no acute distress, well-developed, well-nourished Head exam: PRESENT: atraumatic, normocephalic Eye exam: PRESENT: PERRLA Ear exam: PRESENT: normal external ear exam Mouth exam: PRESENT: moist, tongue midline Neck exam: PRESENT: full ROM Respiratory exam: PRESENT: clear to auscultation mayra Cardiovascular exam: PRESENT: RRR, +S1, +S2 Pulses: PRESENT: normal dorsalis pedis pul, +2 pedal pulses bilateral Vascular exam: PRESENT: normal capillary refill GI/Abdominal exam: PRESENT: normal bowel sounds, soft Rectal exam: PRESENT: deferred Neurological exam: PRESENT: alert, awake, oriented to person, oriented to place, oriented to time, oriented to situation, CN II-XII grossly intact Psychiatric exam: PRESENT: appropriate affect, normal mood Skin exam: PRESENT: dry, intact, warm Results Laboratory Results: 09/28/18 07:35 09/28/18 07:35 09/27/18 09/27/18 09/27/18 13:26 16:37 21:00 WBC RBC Hgb Hct MCV MCH MCHC RDW Plt Count Seg Neutrophils % Lymphocytes % Monocytes % Eosinophils % Basophils % Absolute Neutrophils Absolute Lymphocytes Absolute Monocytes Absolute Eosinophils Absolute Basophils Sodium Potassium Chloride Carbon Dioxide Anion Gap BUN Creatinine Est GFR ( Amer) Est GFR (Non-Af Amer) Glucose Lactic Acid 1.2 Calcium Total Bilirubin AST Alkaline Phosphatase Ammonia < 8.7 L Total Protein Albumin Triglycerides Cholesterol LDL Cholesterol Direct VLDL Cholesterol HDL Cholesterol Amylase Lipase TSH Free T4 Urine Color YELLOW Urine Appearance CLEAR Urine pH 6.0 Ur Specific [place] > 1.060 Urine Protein NEGATIVE Urine Glucose (UA) NEGATIVE Urine Ketones NEGATIVE Urine Blood SMALL H Urine Nitrite NEGATIVE Ur Leukocyte Esterase TRACE H Urine WBC (Auto) 7 Urine RBC (Auto) 1 Stool for White Cells 09/27/18 09/27/18 09/27/18 21:00 21:00 22:00 WBC RBC Hgb Hct MCV MCH MCHC RDW Plt Count Seg Neutrophils % Lymphocytes % Monocytes % Eosinophils % Basophils % Absolute Neutrophils Absolute Lymphocytes Absolute Monocytes Absolute Eosinophils Absolute Basophils Sodium Potassium Chloride Carbon Dioxide Anion Gap BUN Creatinine Est GFR ( Amer) Est GFR (Non-Af Amer) Glucose Lactic Acid Calcium Total Bilirubin AST Alkaline Phosphatase Ammonia Total Protein Albumin Triglycerides Cholesterol LDL Cholesterol Direct VLDL Cholesterol HDL Cholesterol Amylase 44 Lipase 351.5 H TSH 1.43 Free T4 1.17 Urine Color YELLOW Urine Appearance CLEAR Urine pH 6.0 Ur Specific [place] 1.040 Urine Protein NEGATIVE Urine Glucose (UA) 50 H Urine Ketones TRACE H Urine Blood SMALL H Urine Nitrite NEGATIVE Ur Leukocyte Esterase NEGATIVE Urine WBC (Auto) 5 Urine RBC (Auto) 2 Stool for White Cells 09/28/18 09/28/18 09/28/18 01:00 07:35 07:35 WBC 12.8 H RBC 4.01 Hgb 12.5 Hct 37.1 MCV 93 MCH 31.2 MCHC 33.8 RDW 13.8 Plt Count 335 Seg Neutrophils % 77.3 Lymphocytes % 11.7 L Monocytes % 9.8 Eosinophils % 1.1 Basophils % 0.1 Absolute Neutrophils 9.9 H Absolute Lymphocytes 1.5 Absolute Monocytes 1.3 Absolute Eosinophils 0.1 Absolute Basophils 0.0 Sodium 136.6 L Potassium 3.5 L Chloride 104 Carbon Dioxide 22 Anion Gap 11 BUN 5 L Creatinine 0.69 Est GFR ( Amer) > 60 Est GFR (Non-Af Amer) > 60 Glucose 154 H Lactic Acid Calcium 8.3 L Total Bilirubin 0.6 AST 15 Alkaline Phosphatase 108 Ammonia Total Protein 5.8 L Albumin 3.0 L Triglycerides 125 Cholesterol 86.22 LDL Cholesterol Direct 48 VLDL Cholesterol 25.0 HDL Cholesterol 28 L Amylase Lipase TSH Free T4 Urine Color Urine Appearance Urine pH Ur Specific [place] Urine Protein Urine Glucose (UA) Urine Ketones Urine Blood Urine Nitrite Ur Leukocyte Esterase Urine WBC (Auto) Urine RBC (Auto) Stool for White Cells MANY H Impressions: Abdomen/Pelvis CT 09/27/18 14:26 IMPRESSION: Thickening of a relatively short segment of the ascending colon and hepatic flexure. Focal colitis cannot be excluded. Mild surrounding inflammation. Remainder of the colon is unremarkable. Qualifiers - * PATIENT BEING DISCHARGED WITH ANY OF THE FOLLOWING DIAGNOSIS: No VTE patient discharged on overlapping Therapy?: No Reason(s) for not prescribing Overlap Therapy:: Not indicated Stroke Pt being discharged on Anti-thrombolytic therapy?: No Reason(s) for not prescribing Anti-thrombolytic therapy:: Not indicated Stroke Pt being discharged on Anti-coagulation therapy?: No Reason(s) for not prescribing Anti-coagulation therapy:: Not indicated Stroke Pt being discharged on Statins?: No Reason(s) for not prescribing Statins therapy:: Not indicated [place] Pt being discharged on Aspirin therapy?: No Reason(s) for not prescribing Aspirin therapy:: Not indicated [place] Pt being discharged on Statins?: No Reason(s) for not prescribing Statin therapy:: Not indicated [place] Pt discharged ACEI/ARBS?: No Reason(s) for not prescribing ACEI/ARBS:: Not indicated Acute Heart Failure - Is this a Heart Failure Patient?: No Follow-up Appointment scheduled within 7 days?: Yes
== END 2018-09-28 15:33 | disposition home or self-care (01) | DRG 392 ==
LOC: ER 12:31 → EH 17:10 → 3S 20:05
PROVIDERS: ADMIT Internal Medicine; ATTEND Internal Medicine
DX: K52.9 Noninfective gastroenteritis and colitis, unspecified (principal); K57.90 Diverticulosis of intestine, part unspecified, without perforation or abscess without bleeding; J44.9 Chronic obstructive pulmonary disease, unspecified; Z87.891 Personal history of nicotine dependence
CPT/HCPCS: 36415; 74177; 80048; 80053; 80061; 80076; 80307; 81001; 82140; 82150; 83036; 83605; 83690; 84439; 84443; 85025; 87040; 87045; 87205; 87493; 89055; 96361; 96365; 96375; 99285; J0744; J2270; J2405; J2543; J3490; J7030

== ENCOUNTER 2018-10-01 14:33 | Inpatient (IN) | payer BC, MEDICARE ==
[2018-10-01] MEDS ORDERED: MORPHINE SULFATE 10 MG/ML INJ IV ONE (15:01)
[2018-10-01] MEDS ORDERED: ONDANSETRON HCL INJ/PF 4 MG/2 ML SDV IV ONE ×2 (15:01→18:41)
[2018-10-01] MEDS ORDERED: NORMAL SALINE 1000 ML 1,000 ML IV ONE (15:02)
--- NOTE | 2018-10-01 15:06 | ER Document Report ---
ED Medical Screen (RME) - General Chief Complaint: Abdominal Pain Stated Complaint: VOMITING/DIARRHEA Time Seen by Provider: 10/01/18 14:55 Primary Care Provider: ARTIS VENEGAS MD [Primary Care Provider] - Follow up as needed Mode of Arrival: Wheelchair Information source: Patient Notes: 73-year-old female presented to ED for complaint of severe abdominal pain nausea and vomiting and bleeding rectally. Patient states she was admitted on Wednesday for colitis and she had nausea vomiting and rectal bleeding at that time. She states she never stopped having nausea vomiting and rectal bleeding and she still has the same symptoms. She said she was discharged on Wednesday. She said her only medical history is colitis and COPD and she had cataract surgeries . Patient is alert oriented respirations regular and unlabored speaking in full sentences. She states she is a patient of Dr. Venegas and that is who admitted her and discharged her. She states she is a former smoker but no longer smokes does not drink and does not do drugs. I have greeted and performed a rapid initial assessment of this patient. A comprehensive ED assessment and evaluation of the patient, analysis of test results and completion of medical decision making process will be conducted by an additional ED providers. TRAVEL OUTSIDE OF THE [place] IN LAST 30 DAYS: No - Related Data Allergies/Adverse Reactions: No Known Allergies Allergy (Verified 05/18/18 10:22) Past Medical History - Social History Family history: Reviewed & Not Pertinent Pulmonary Medical History: Reports: Hx COPD, Hx Pneumonia Renal/ Medical History: Denies: Hx Peritoneal Dialysis Past Surgical History: Reports: Other - Cataract surgery - Immunizations History of Influenza Vaccine for 11/2016 - 04/2017 Season: Yes Influenza Administration Date for 11/2016 - 04/2017 Season: 11/08/16 Physical Exam - Vital signs Vitals: Temp Pulse Resp BP Pulse Ox 97.7 F 113 H 20 116/58 L 92 10/01/18 14:41 10/01/18 14:41 10/01/18 14:41 10/01/18 14:41 10/01/18 14:41 Course - Vital Signs Vital signs: Temp Pulse Resp BP Pulse Ox 97.7 F 113 H 20 116/58 L 92 10/01/18 14:41 10/01/18 14:41 10/01/18 14:41 10/01/18 14:41 10/01/18 14:41 Doctor's Discharge - Discharge Referrals: ARTIS VENEGAS MD [Primary Care Provider] - Follow up as needed
[2018-10-01 15:30] LABS: ABSOLUTE EOSINOPHILS # (AUTO) 0.1 10^3/uL (0.0-0.6); ABSOLUTE LYMPHOCYTES (AUTO) 1.4 10^3/uL (0.5-4.7); ABSOLUTE MONOCYTES (AUTO) 1.8 10^3/uL (0.1-1.4); ABSOLUTE NEUT (AUTO) 15.3 10^3/uL (1.7-8.2); BASOPHILS % (AUTO) 0.2 % (0-2); EOSINOPHILS % (AUTO) 0.4 % (0-6); HEMATOCRIT 41.4 % (36.0-47.0); HEMOGLOBIN 13.9 g/dL (12.0-15.5); LYMPHOCYTES % (AUTO) 7.3 % (13-45); MEAN CORPUSCULAR HEMOGLOBIN 30.9 pg (27.0-33.4); MEAN CORPUSCULAR HGB CONC 33.6 g/dL (32.0-36.0); MEAN CORPUSCULAR VOLUME 92 fl (80-97); MONOCYTES % (AUTO) 9.6 % (3-13); PLATELET COUNT 472 10^3/uL (150-450); RED CELL DISTRIBUTION WIDTH 14.2 % (11.5-14.0); SEGMENTED NEUTROPHILS % (AUTO) 82.5 % (42-78); TOTAL CELLS COUNTED % (AUTO) 100 %; WHITE BLOOD COUNT 18.5 10^3/uL (4.0-10.5)
[2018-10-01 15:49] LABS: ALBUMIN 3.2 g/dL (3.5-5.0); ALKALINE PHOSPHATASE 111 U/L (38-126); ANION GAP 15 (5-19); ASPARTATE AMINO TRANSFERASE 17 U/L (14-36); BILIRUBIN,DIRECT 0.3 mg/dL (0.0-0.4); BILIRUBIN,TOTAL 0.5 mg/dL (0.2-1.3); BLOOD UREA NITROGEN 8 mg/dL (7-20); CALCIUM 8.5 mg/dL (8.4-10.2); CARBON DIOXIDE 22 mmol/L (22-30); CHLORIDE 100 mmol/L (98-107); GLUCOSE 161 mg/dL (75-110); POTASSIUM 3.1 mmol/L (3.6-5.0); TOTAL PROTEIN 6.1 g/dL (6.3-8.2)
[2018-10-01] MEDS ORDERED: POTASSI CL 20 MEQ/50 ML RIDER 20 MEQ/50 ML RTUPB IV ONE (16:05)
[2018-10-01] MEDS ORDERED: METRONIDAZOLE 500 MG/NS RTU 500 MG/100 ML RTUPB IV ONE (16:06)
[2018-10-01] MEDS ORDERED: CIPROFLOXACIN 400 MG/D5W RTU 400 MG/200 ML RTUPB IV ONE (16:06)
--- NOTE | 2018-10-01 16:07 | ER Document Report ---
ED GI/ - General Mode of Arrival: Wheelchair Information source: Patient TRAVEL OUTSIDE OF THE [place] IN LAST 30 DAYS: No <THAIS SINGH - Last Filed: 10/01/18 16:01> <ANNIE DESIR - Last Filed: 10/02/18 03:41> - General Chief Complaint: Abdominal Pain Stated Complaint: VOMITING/DIARRHEA Time Seen by Provider: 10/01/18 14:55 Notes: HPI: 73-year-old female who was admitted Wednesday 4 days ago after a 4-day history of nausea, vomiting, diarrhea, with some blood noted in the diarrhea. She had a CT scan of the abdomen and pelvis showing some thickening of the celiac and ascending colonic wall. C. difficile was negative. Patient was placed on Flagyl and ciprofloxacin. Patient states that she is continued to have diarrhea with some intermittent abdominal pain since that time. The abdominal pain worsened. She did vomit last night x3 and vomit this morning. She is not able to take the p.o. medications I will prescribe. She states she still see some intermittent blood in the diarrhea. She denies any fevers, chest pain, shortness of breath, calf pain or leg swelling, or other review of systems. ROS: See HPI All other review of systems reviewed and otherwise negative Reviewed vital signs and nursing note as charted by RN. PHYSICAL EXAM: CONSTITUTIONAL: Alert and oriented and responds appropriately to questions. Well-appearing; well-nourished HEAD: Normocephalic; atraumatic EYES: Sclerae non-icteric CARD: Regular rate and rhythm; no murmurs; symmetric distal pulses RESP: Normal chest excursion without splinting or tachypnea; breath sounds clear and equal bilaterally ABD/GI: Normal bowel sounds; distended with an elevated BMI at baseline according the patient; soft, mildly tender to palpation without rebound or guarding to the right lower quadrant. No palpable masses or abdominal bruits BACK: The back appears normal and is non-tender to palpation EXT: Normal ROM in all joints; non-tender to palpation; no edema SKIN: No acute lesions noted NEURO: CN 2-12 intact; 5/5 bilateral upper and lower extremity strength with sensation intact to light touch PSYCH: The patient's mood and manner are appropriate. Grooming and personal hygiene are appropriate. (THAIS SINGH) - Related Data Allergies/Adverse Reactions: No Known Allergies Allergy (Verified 05/18/18 10:22) Past Medical History - General Information source: Patient - Social History Smoking Status: Former Smoker Family History: Reviewed & Not Pertinent, Arthritis Patient has suicidal ideation: No Patient has homicidal ideation: No Pulmonary Medical History: Reports: Hx COPD, Hx Pneumonia Renal/ Medical History: Denies: Hx Peritoneal Dialysis Past Surgical History: Reports: Other - Cataract surgery - Immunizations Hx Pneumococcal Vaccination: 02/08/10 <THAIS SINGH - Last Filed: 10/01/18 16:01> Physical Exam - Vital signs Vitals: Temp Pulse Resp BP Pulse Ox 97.7 F 113 H 20 116/58 L 92 10/01/18 14:41 10/01/18 14:41 10/01/18 14:41 10/01/18 14:41 10/01/18 14:41 Course - Laboratory Result Diagrams: 10/01/18 15:09 10/01/18 15:09 <THAIS SINGH - Last Filed: 10/01/18 16:01> - Laboratory Result Diagrams: 10/01/18 15:09 10/01/18 15:09 - Diagnostic Test Radiology reviewed: Image reviewed, Reports reviewed <ANNIE DESIR - Last Filed: 10/02/18 03:41> - Re-evaluation Re-evalutation: Given the above history and physical, with the patient's age, we will obtain a repeat CT scan of the abdomen and pelvis as well as basic abdominal labs. I will order IV medications for her antibiotics given that she was not able to tolerate them this morning. I have also added a lactic acid to make sure that this bowel wall thickening is not secondary to ischemia. 10/01/18 16:04 (THAIS SINGH) Abdomen/Pelvis CT 10/01/18 15:53 IMPRESSION: 1. Diffuse colitis, worsened in the interval. 2. Trace pelvic ascites. 3. Fatty infiltration of the liver. 4. Atherosclerotic disease. 2.8 cm fusiform infrarenal abdominal aortic aneurysm. 5. Nonobstructing left nephrolithiasis. 10/01/18 18:39 Patient received in signout by Dr. Pulido with CAT scan pending. CT of the abdomen and pelvis shows worsening colitis, trace ascites and a 2.8 cm abdominal aortic aneurysm. Patient reports persistent pain and nausea. at the bedside states that patient has been absolutely miserable at home and unable to keep down any food or fluid. She has not been able to keep down her antibiotics. Patient is agreeable with admission. Patient's pain has returned as well as her nausea. 10/02/18 03:40 I did speak to Dr. Elizabeth who has agreed to admit the patient. (ANNIE DESIR) - Vital Signs Vital signs: Temp Pulse Resp BP Pulse Ox 98.2 F 96 24 H 115/52 L 98 10/01/18 23:13 10/02/18 02:00 10/01/18 23:13 10/01/18 23:13 10/01/18 23:13 - Laboratory Laboratory results interpreted by me: 10/01/18 10/01/18 10/01/18 15:09 15:09 17:10 WBC 18.5 H RDW 14.2 H Plt Count 472 H Lymph % (Auto) 7.3 L Absolute Neuts (auto) 15.3 H Absolute Monos (auto) 1.8 H Seg Neutrophils % 82.5 H Potassium 3.1 L Glucose 161 H Total Protein 6.1 L Albumin 3.2 L Urine Protein 30 H Urine Ketones 80 H Ur Leukocyte Esterase TRACE H Discharge <THAIS SINGH - Last Filed: 10/01/18 16:01> - Discharge Admitting Provider: [facility] Admitted: Telemetry <ANNIE DESIR - Last Filed: 10/02/18 03:41> - Discharge Clinical Impression: Colitis, Hypoxia, Abdominal aortic aneurysm (AAA) without rupture, Hypokalemia Abdominal pain Qualifiers: Abdominal location: generalized Qualified Code(s): R10.84 - Generalized abdominal pain Intractable nausea and vomiting Qualifiers: Vomiting type: unspecified Qualified Code(s): R11.2 - Nausea with vomiting, unspecified Leukocytosis Qualifiers: Leukocytosis type: unspecified Qualified Code(s): D72.829 - Elevated white blood cell count, unspecified UTI (urinary tract infection) Qualifiers: Urinary tract infection type: site unspecified Hematuria presence: without hematuria Qualified Code(s): N39.0 - Urinary tract infection, site not specified Condition: Stable Disposition: ADMITTED INPATIENT
[2018-10-01 17:16] LABS: APPEARANCE,URINE CLEAR; BILIRUBIN,URINE NEGATIVE (NEGATIVE); COLOR,URINE YELLOW; GLUCOSE, URINE NEGATIVE (NEGATIVE); KETONES,URINE 80 mg/dL (NEGATIVE); LEUKOCYTE ESTERASE,URINE TRACE (NEGATIVE); NITRITE,URINE NEGATIVE (NEGATIVE); PROTEIN,URINE 30 mg/dL (NEGATIVE); URINE SPECIFIC GRAVITY 1.016; UROBILINOGEN,URINE NEGATIVE mg/dL (<2.0)
--- NOTE | 2018-10-01 18:19 | RADIOLOGY REPORT (SQ) ---
EXAM DESCRIPTION: CT ABD/PELVIS WITH IV ONLY COMPLETED DATE/TIME: 10/01/2018 5:49 pm REASON FOR STUDY: 16, pain with vomiting and diarrhea. Recent diagn Right lower quadrant pain. COMPARISON: CT abdomen and pelvis 09/27/2018. TECHNIQUE: CT scan of the abdomen and pelvis performed using helical scanning technique with dynamic intravenous contrast injection. No oral contrast. Images reviewed with lung, soft tissue, and bone windows. Reconstructed coronal and sagittal MPR images reviewed. Delayed images for evaluation of the urinary system also acquired. All images stored on PACS. All CT scanners at this facility use dose modulation, iterative reconstruction, and/or weight based d osing when appropriate to reduce radiation dose to as low as reasonably achievable (ALARA). [facility]: Dose Right [facility]: CareDose [facility]: Dose Right [facility]: Teradose 4D [facility]: SkillsTrak CONTRAST TYPE AND DOSE: contrast/concentration: Isovue mg/ml; Total Contrast Delivered: 89.0 ml; To bladimir Saline Delivered: 69.0 ml RENAL FUNCTION: Creatinine 0.07 RADIATION DOSE: CT Rad equipment meets quality standard of care and radiation dose reduction techniq ues were employed. CTDIvol: 11.5 - 13.8 mGy. DLP: 1295 mGy-cm.. LIMITATIONS: None. FINDINGS: LOWER CHEST: No consolidation or pleural effusion. There is a small fat containing hernia at the posterior right hemidiaphragm. LIVER: There is diffuse decreased attenuation most consistent with fatty infiltration. No dilated du cts. SPLEEN: Normal size. PANCREAS: No significant calcifications. No adjacent inflammation or peripancreatic fluid collections . Pancreatic duct not dilated. GALLBLADDER: Present. ADRENAL GLANDS: No significant masses or asymmetry. RIGHT KIDNEY AND URETER: No significant calcifications. No hydronephrosis or hydroureter. LEFT KIDNEY AND URETER: Nonobstructing 3 mm calculus at the inferior pole of the left kidney. No hyd ronephrosis or hydroureter. AORTA AND VESSELS: Atherosclerotic calcifications at the abdominal aorta and its branches. Fusiform aneurysmal dilation of the infrarenal abdominal aorta measuring 2.8 cm. RETROPERITONEUM: No retroperitoneal hemorrhage or masses. BOWEL AND PERITONEAL CAVITY: No dilated bowel loops to suggest obstruction. There is diffuse wall th ickening of the colon with hyperenhancement, increased in the interval. No free fluid or free air. APPENDIX: Normal. PELVIS: The uterus is present. The urinary bladder is partially distended. There is trace pelvic as cites. ABDOMINAL WALL: There is a small fat containing umbilical hernia. BONES: Multilevel degenerative changes at the spine. IMPRESSION: 1. Diffuse colitis, worsened in the interval. 2. Trace pelvic ascites. 3. Fatty infiltration of the liver. 4. Atherosclerotic disease. 2.8 cm fusiform infrarenal abdominal aortic aneurysm. 5. Nonobstructing left nephrolithiasis. COMMENT: AAA Size: Follow-up Recommendation 2.6-2.9 cm Every 5 years* *Based upon the Society for Vascular Surgery Guidelines: J Vasc Surg. 2009 Nov;50(4 Suppl):S2-49 *For aortas of maximum diameter of 2.6-2.9 cm meeting the criteria for AAA (?1.5 x proximal normal se gment) TECHNICAL DOCUMENTATION: JOB ID: [id number] Quality ID # [id number]: Final reports with documentation of one or more dose reduction techniques (e.g., Au tomated exposure control, adjustment of the mA and/or kV according to patient size, use of iterative reconstruction technique) 2010 [employer]- All Rights Reserved Reading location - IP/workstation name: [email or web address]
[2018-10-01] MEDS ORDERED: FENTANYL CITRATE INJ/PF 100 MCG/2 ML AMPUL IV ONE (18:40)
[2018-10-01 20:49] LABS: INTERNATIONAL RATION (INR) 1.14; PROTHROMBIN TIME 14.6 SEC (11.4-15.4)
[2018-10-01 20:50] LABS: PARTIAL THROMBOPLASTIN TIME 27.4 SEC (23.5-35.8)
[2018-10-01 21:00] LABS: FREE T4 (FREE THYROXINE) 1.64 ng/dL (0.78-2.19)
[2018-10-01 21:14] LABS: THYROID STIMULATING HORMONE 1.16 uIU/mL (0.47-4.68)
[2018-10-01] MEDS: METRONIDAZOLE 500 MG/NS RTU 500 MG/100 ML RTUPB IV SCH (23:43)
[2018-10-01] MEDS: ONDANSETRON HCL INJ/PF 4 MG/2 ML SDV IV PRN (23:43)
[2018-10-02] MEDS: MORPHINE SULFATE 10 MG/ML INJ IV PRN ×2 (01:39→20:13)
[2018-10-02 02:11] LABS: APPEARANCE,URINE CLOUDY; BILIRUBIN,URINE NEGATIVE (NEGATIVE); COLOR,URINE YELLOW; GLUCOSE, URINE NEGATIVE (NEGATIVE); KETONES,URINE 80 mg/dL (NEGATIVE); LEUKOCYTE ESTERASE,URINE LARGE (NEGATIVE); NITRITE,URINE NEGATIVE (NEGATIVE); PROTEIN,URINE 30 mg/dL (NEGATIVE); URINE SPECIFIC GRAVITY 1.033; UROBILINOGEN,URINE NEGATIVE mg/dL (<2.0)
[2018-10-02 02:17] LABS: URINE AMPHETAMINES SCREEN NEGATIVE; URINE BARBITURATES SCREEN NEGATIVE; URINE BENZODIAZEPINES SCREEN NEGATIVE; URINE COCAINE SCREEN NEGATIVE; URINE MARIJUANA (THC) SCREEN NEGATIVE; URINE METHADONE SCREEN NEGATIVE; URINE PHENCYCLIDINE SCREEN NEGATIVE
[2018-10-02] MEDS: METRONIDAZOLE 500 MG/NS RTU 500 MG/100 ML RTUPB IV SCH ×4 (06:00→23:29)
[2018-10-02 06:04] LABS: ABSOLUTE EOSINOPHILS # (AUTO) 0.1 10^3/uL (0.0-0.6); ABSOLUTE LYMPHOCYTES (AUTO) 1.4 10^3/uL (0.5-4.7); ABSOLUTE MONOCYTES (AUTO) 1.5 10^3/uL (0.1-1.4); ABSOLUTE NEUT (AUTO) 12.1 10^3/uL (1.7-8.2); BASOPHILS % (AUTO) 0.3 % (0-2); EOSINOPHILS % (AUTO) 0.8 % (0-6); HEMATOCRIT 36.7 % (36.0-47.0); HEMOGLOBIN 12.3 g/dL (12.0-15.5); LYMPHOCYTES % (AUTO) 9.3 % (13-45); MEAN CORPUSCULAR HEMOGLOBIN 30.5 pg (27.0-33.4); MEAN CORPUSCULAR HGB CONC 33.4 g/dL (32.0-36.0); MEAN CORPUSCULAR VOLUME 91 fl (80-97); PLATELET COUNT 410 10^3/uL (150-450); RED BLOOD COUNT 4.01 10^6/uL (3.72-5.28); SEGMENTED NEUTROPHILS % (AUTO) 79.6 % (42-78); TOTAL CELLS COUNTED % (AUTO) 100 %; WHITE BLOOD COUNT 15.2 10^3/uL (4.0-10.5)
[2018-10-02 06:33] LABS: ALBUMIN 2.5 g/dL (3.5-5.0); ALKALINE PHOSPHATASE 89 U/L (38-126); ANION GAP 12 (5-19); ASPARTATE AMINO TRANSFERASE 15 U/L (14-36); BILIRUBIN,DIRECT 0.4 mg/dL (0.0-0.4); BILIRUBIN,TOTAL 0.5 mg/dL (0.2-1.3); BLOOD UREA NITROGEN 5 mg/dL (7-20); CALCIUM 7.9 mg/dL (8.4-10.2); CARBON DIOXIDE 24 mmol/L (22-30); CHLORIDE 103 mmol/L (98-107); GLUCOSE 136 mg/dL (75-110); TOTAL PROTEIN 5.2 g/dL (6.3-8.2); TRIGLYCERIDES 121 mg/dL (<150)
[2018-10-02 06:37] LABS: CHOLESTEROL < 50.00 mg/dL (0-200)
[2018-10-02 07:01] LABS: DIRECT LDL < 30 mg/dL (<100)
[2018-10-02 07:03] LABS: POTASSIUM 2.7 mmol/L (3.6-5.0)
[2018-10-02] MEDS ORDERED: ENOXAPARIN SODIUM INJ 40 MG/0.4 ML DISP.SYRIN SUBCUT SCH (10:00)
[2018-10-02] MEDS: POTASSI CL 20 MEQ/50 ML RIDER 20 MEQ/50 ML RTUPB IV SCH ×2 (11:27→17:13)
--- NOTE | 2018-10-02 12:22 | PDOC H&P ---
History of Present Illness Admission Date/PCP: 10/01/18 18:56 ARTIS VENEGAS MD History of Present Illness: NAN ALMEIDA is a 73 year old female, she was admitted initially on 09/27/2018 when she presented with GI symptoms, abdominal pain, bloody diarrhea, she also had a CAT scan of the abdomen and pelvis that demonstrated thickening of the ascending colon, she was diagnosed with colitis, treated with IV antibiotic ciprofloxacin and Flagyl, she improved in 24 hours she was discharged home on 09/28/2018 on p.o. antibiotic, she returned back to the emergency room with complaint of persistent vomiting, abdominal pain and diarrhea. She said she is not able to keep any food down for the last 3 days she been vomiting persistently. In the emergency room she was evaluated a repeat CAT scan of the abdomen and pelvis was done it demonstrated diffuse wall thickening of the colon with hyperenhancement, increased compared to the previous CT scan that was done on 09/27/2018. Past Medical History Pulmonary Medical History: Reports: Chronic Obstructive Pulmonary Disease (COPD), Pneumonia Past Surgical History Past Surgical History: Reports: Other - Cataract surgery Social History Smoking Status: Former Smoker Frequency of Alcohol Use: None Hx Recreational Drug Use: No Drugs: None Hx Prescription Drug Abuse: No Family History Family History: Reviewed & Not Pertinent, Arthritis Parental Family History Reviewed: Yes Children Family History Reviewed: Yes Sibling(s) Family History Reviewed.: Yes Medication/Allergy Home Medications: Pravastatin Sodium [Pravachol] 10 mg PO QHS 05/18/18 Tiotropium [place] [Spiriva Handihaler 5 Cap/Kit (18 Mcg/Cap)] 1 cap IH DAILY 05/18/18 Ciprofloxacin HCl [Cipro 500 mg Tablet] 500 mg PO BID #20 tablet MDD FILLED 09/28 FOR 10 DAY SUPPLY 09/28/18 Metronidazole [Flagyl 500 mg Tablet] 500 mg PO TID #30 tablet MDD FILLED 09/28 FOR 10 DAY SUPPLY 09/28/18 Allergies/Adverse Reactions: No Known Allergies Allergy (Verified 05/18/18 10:22) Review of Systems Constitutional: ABSENT: chills, fever(s), headache(s), weight gain, weight loss Eyes: ABSENT: visual disturbances Ears: ABSENT: hearing changes Cardiovascular: ABSENT: chest pain, dyspnea on exertion, edema, orthropnea, palpitations Respiratory: ABSENT: cough, hemoptysis Gastrointestinal: PRESENT: abdominal pain, diarrhea, nausea, vomiting Genitourinary: ABSENT: dysuria, hematuria Musculoskeletal: ABSENT: joint swelling Integumentary: ABSENT: rash, wounds Neurological: ABSENT: abnormal gait, abnormal speech, confusion, dizziness, focal weakness, syncope Psychiatric: ABSENT: anxiety, depression, homidical ideation, suicidal ideation Endocrine: ABSENT: cold intolerance, heat intolerance, menstrual abnormalities, polydipsia, polyuria Hematologic/Lymphatic: ABSENT: easy bleeding, easy bruising, lymphadenopathy Physical Exam Vital Signs: Temp Pulse Resp BP Pulse Ox 97.8 F 110 H 16 109/65 98 10/02/18 09:16 10/02/18 09:16 10/02/18 09:16 10/02/18 09:16 10/02/18 09:16 Intake & Output 10/01/18 10/02/18 10/03/18 06:59 06:59 06:59 Intake Total 1770 100 Output Total 200 Balance 1570 100 Weight 76.5 kg General appearance: PRESENT: no acute distress Head exam: PRESENT: atraumatic, normocephalic Eye exam: PRESENT: conjunctiva pink, EOMI, PERRLA Ear exam: PRESENT: normal external ear exam Mouth exam: PRESENT: moist, tongue midline Neck exam: PRESENT: full ROM Respiratory exam: PRESENT: clear to auscultation mayra Cardiovascular exam: PRESENT: RRR, +S1, +S2 Vascular exam: PRESENT: normal capillary refill GI/Abdominal exam: PRESENT: normal bowel sounds, soft, tenderness Rectal exam: PRESENT: deferred Neurological exam: PRESENT: alert, awake, oriented to person, oriented to place, oriented to time, oriented to situation, CN II-XII grossly intact Psychiatric exam: PRESENT: appropriate affect, normal mood Skin exam: PRESENT: dry, intact, warm Results Laboratory Results: 10/02/18 05:04 10/02/18 05:04 10/01/18 10/01/18 10/01/18 15:09 15:09 15:09 WBC 18.5 H RBC 4.50 Hgb 13.9 Hct 41.4 MCV 92 MCH 30.9 MCHC 33.6 RDW 14.2 H Plt Count 472 H Seg Neutrophils % 82.5 H Sodium 137.2 Potassium 3.1 L Chloride 100 Carbon Dioxide 22 Anion Gap 15 BUN 8 Creatinine 0.70 Est GFR ( Amer) > 60 Glucose 161 H Lactic Acid Calcium 8.5 Phosphorus Magnesium Total Bilirubin 0.5 AST 17 Alkaline Phosphatase 111 Ammonia Total Protein 6.1 L Albumin 3.2 L Triglycerides Cholesterol LDL Cholesterol Direct VLDL Cholesterol HDL Cholesterol Amylase Lipase 98.6 TSH Free T4 Urine Color Urine Appearance Urine pH Ur Specific [place] Urine Protein Urine Glucose (UA) Urine Ketones Urine Blood Urine Nitrite Ur Leukocyte Esterase Urine WBC (Auto) Urine RBC (Auto) Blood Type Cancelled Antibody Screen Cancelled 10/01/18 10/01/18 10/01/18 15:09 15:09 15:44 WBC RBC Hgb Hct MCV MCH MCHC RDW Plt Count Seg Neutrophils % Sodium Potassium Chloride Carbon Dioxide Anion Gap BUN Creatinine Est GFR ( Amer) Glucose Lactic Acid Calcium Phosphorus 3.0 Magnesium 2.0 Total Bilirubin AST Alkaline Phosphatase Ammonia Total Protein Albumin Triglycerides Cholesterol LDL Cholesterol Direct VLDL Cholesterol HDL Cholesterol Amylase 37 Lipase 98.1 TSH 1.16 Free T4 1.64 Urine Color Urine Appearance Urine pH Ur Specific [place] Urine Protein Urine Glucose (UA) Urine Ketones Urine Blood Urine Nitrite Ur Leukocyte Esterase Urine WBC (Auto) Urine RBC (Auto) Blood Type O POSITIVE Antibody Screen NEGATIVE 10/01/18 10/01/18 10/01/18 17:10 17:27 20:30 WBC RBC Hgb Hct MCV MCH MCHC RDW Plt Count Seg Neutrophils % Sodium Potassium Chloride Carbon Dioxide Anion Gap BUN Creatinine Est GFR ( Amer) Glucose Lactic Acid 2.0 Calcium Phosphorus Magnesium Total Bilirubin AST Alkaline Phosphatase Ammonia < 8.7 L Total Protein Albumin Triglycerides Cholesterol LDL Cholesterol Direct VLDL Cholesterol HDL Cholesterol Amylase Lipase TSH Free T4 Urine Color YELLOW Urine Appearance CLEAR Urine pH 6.0 Ur Specific [place] 1.016 Urine Protein 30 H Urine Glucose (UA) NEGATIVE Urine Ketones 80 H Urine Blood NEGATIVE Urine Nitrite NEGATIVE Ur Leukocyte Esterase TRACE H Urine WBC (Auto) 2 Urine RBC (Auto) 1 Blood Type Antibody Screen 10/02/18 10/02/18 10/02/18 01:08 05:04 05:04 WBC 15.2 H RBC 4.01 Hgb 12.3 Hct 36.7 MCV 91 MCH 30.5 MCHC 33.4 RDW 14.0 Plt Count 410 Seg Neutrophils % 79.6 H Sodium 139.0 Potassium 2.7 L* Chloride 103 Carbon Dioxide 24 Anion Gap 12 BUN 5 L Creatinine 0.71 Est GFR ( Amer) > 60 Glucose 136 H Lactic Acid Calcium 7.9 L Phosphorus Magnesium Total Bilirubin 0.5 AST 15 Alkaline Phosphatase 89 Ammonia Total Protein 5.2 L Albumin 2.5 L Triglycerides 121 Cholesterol < 50.00 LDL Cholesterol Direct < 30 VLDL Cholesterol 24.0 HDL Cholesterol 20 L Amylase Lipase TSH Free T4 Urine Color YELLOW Urine Appearance CLOUDY Urine pH 6.0 Ur Specific [place] 1.033 Urine Protein 30 H Urine Glucose (UA) NEGATIVE Urine Ketones 80 H Urine Blood LARGE H Urine Nitrite NEGATIVE Ur Leukocyte Esterase LARGE H Urine WBC (Auto) >182 Urine RBC (Auto) >182 Blood Type Antibody Screen Impressions: Abdomen/Pelvis CT 10/01/18 15:53 IMPRESSION: 1. Diffuse colitis, worsened in the interval. 2. Trace pelvic ascites. 3. Fatty infiltration of the liver. 4. Atherosclerotic disease. 2.8 cm fusiform infrarenal abdominal aortic aneurysm. 5. Nonobstructing left nephrolithiasis. Assessment & Plan - Diagnosis (1) Colitis Is this a current diagnosis for this admission?: Yes Plan: , The differential diagnosis include infectious colitis, ischemic colitis, inflammatory colitis, IBD the CT scan that was done also demonstrated atherosclerotic calcification of the abdominal aorta and its branches with fusiform aneurysmal dilatation of the infrarenal abdominal aorta measuring 2.8 cm. The branches of the abdominal aorta was said to be atherosclerotic suggesting that this could be ischemic colitis but she will empirically be treated with IV antibiotic, consultation will be obtained from GI physician. The last time she was admitted, I indicated to her that she will need outpatient colonoscopy once the inflammation subside, it was assumed that this could be infectious, there was improvement in the leukocytosis which was predominantly neutrophils that suggest bacterial etiology. (2) Hypokalemia Is this a current diagnosis for this admission?: Yes Plan: Replace potassium
--- NOTE | 2018-10-02 14:19 | PDOC PROGRESS REPORT ---
Subjective Progress Note for:: 10/02/18 Subjective:: Patient was admitted yesterday for the management of colitis as suspected ischemic colitis, she has underlining vascular disease including atherosclerotic aortic disease with it branches. She will continue empirically IV antibiotic, she continues to complain of pain requiring morphine for pain control, consultation will be requested from GI for evaluation. Reason For Visit: ACUTE COLITIS, INFECTIOUS, MALIGANT,ISCHEMIC Physical Exam Vital Signs: Temp Pulse Resp BP Pulse Ox 97.7 F 102 H 16 108/65 97 10/02/18 11:50 10/02/18 11:50 10/02/18 11:50 10/02/18 11:50 10/02/18 11:50 Intake & Output 10/01/18 10/02/18 10/03/18 06:59 06:59 06:59 Intake Total 1770 538 Output Total 200 Balance 1570 538 Weight 76.5 kg General appearance: PRESENT: no acute distress Head exam: PRESENT: atraumatic, normocephalic Eye exam: PRESENT: PERRLA. ABSENT: scleral icterus Mouth exam: PRESENT: moist, tongue midline Neck exam: PRESENT: full ROM Respiratory exam: PRESENT: clear to auscultation mayra Cardiovascular exam: PRESENT: clicks, RRR, +S1, +S2 Vascular exam: PRESENT: normal capillary refill GI/Abdominal exam: PRESENT: normal bowel sounds, soft, tenderness Rectal exam: PRESENT: deferred Neurological exam: PRESENT: alert, awake, oriented to person, oriented to place, oriented to time, oriented to situation, CN II-XII grossly intact. ABSENT: motor sensory deficit Psychiatric exam: PRESENT: appropriate affect, normal mood Skin exam: PRESENT: dry, intact, warm. ABSENT: cyanosis, rash Results Laboratory Results: 10/02/18 05:04 10/02/18 05:04 10/01/18 10/01/18 10/01/18 15:09 15:09 15:09 WBC 18.5 H RBC 4.50 Hgb 13.9 Hct 41.4 MCV 92 MCH 30.9 MCHC 33.6 RDW 14.2 H Plt Count 472 H Seg Neutrophils % 82.5 H Sodium 137.2 Potassium 3.1 L Chloride 100 Carbon Dioxide 22 Anion Gap 15 BUN 8 Creatinine 0.70 Est GFR ( Amer) > 60 Glucose 161 H Lactic Acid Calcium 8.5 Phosphorus Magnesium Total Bilirubin 0.5 AST 17 Alkaline Phosphatase 111 Ammonia Total Protein 6.1 L Albumin 3.2 L Triglycerides Cholesterol LDL Cholesterol Direct VLDL Cholesterol HDL Cholesterol Amylase Lipase 98.6 TSH Free T4 Urine Color Urine Appearance Urine pH Ur Specific [place] Urine Protein Urine Glucose (UA) Urine Ketones Urine Blood Urine Nitrite Ur Leukocyte Esterase Urine WBC (Auto) Urine RBC (Auto) Blood Type Cancelled Antibody Screen Cancelled 10/01/18 10/01/18 10/01/18 15:09 15:09 15:44 WBC RBC Hgb Hct MCV MCH MCHC RDW Plt Count Seg Neutrophils % Sodium Potassium Chloride Carbon Dioxide Anion Gap BUN Creatinine Est GFR ( Amer) Glucose Lactic Acid Calcium Phosphorus 3.0 Magnesium 2.0 Total Bilirubin AST Alkaline Phosphatase Ammonia Total Protein Albumin Triglycerides Cholesterol LDL Cholesterol Direct VLDL Cholesterol HDL Cholesterol Amylase 37 Lipase 98.1 TSH 1.16 Free T4 1.64 Urine Color Urine Appearance Urine pH Ur Specific [place] Urine Protein Urine Glucose (UA) Urine Ketones Urine Blood Urine Nitrite Ur Leukocyte Esterase Urine WBC (Auto) Urine RBC (Auto) Blood Type O POSITIVE Antibody Screen NEGATIVE 10/01/18 10/01/18 10/01/18 17:10 17:27 20:30 WBC RBC Hgb Hct MCV MCH MCHC RDW Plt Count Seg Neutrophils % Sodium Potassium Chloride Carbon Dioxide Anion Gap BUN Creatinine Est GFR ( Amer) Glucose Lactic Acid 2.0 Calcium Phosphorus Magnesium Total Bilirubin AST Alkaline Phosphatase Ammonia < 8.7 L Total Protein Albumin Triglycerides Cholesterol LDL Cholesterol Direct VLDL Cholesterol HDL Cholesterol Amylase Lipase TSH Free T4 Urine Color YELLOW Urine Appearance CLEAR Urine pH 6.0 Ur Specific [place] 1.016 Urine Protein 30 H Urine Glucose (UA) NEGATIVE Urine Ketones 80 H Urine Blood NEGATIVE Urine Nitrite NEGATIVE Ur Leukocyte Esterase TRACE H Urine WBC (Auto) 2 Urine RBC (Auto) 1 Blood Type Antibody Screen 10/02/18 10/02/18 10/02/18 01:08 05:04 05:04 WBC 15.2 H RBC 4.01 Hgb 12.3 Hct 36.7 MCV 91 MCH 30.5 MCHC 33.4 RDW 14.0 Plt Count 410 Seg Neutrophils % 79.6 H Sodium 139.0 Potassium 2.7 L* Chloride 103 Carbon Dioxide 24 Anion Gap 12 BUN 5 L Creatinine 0.71 Est GFR ( Amer) > 60 Glucose 136 H Lactic Acid Calcium 7.9 L Phosphorus Magnesium Total Bilirubin 0.5 AST 15 Alkaline Phosphatase 89 Ammonia Total Protein 5.2 L Albumin 2.5 L Triglycerides 121 Cholesterol < 50.00 LDL Cholesterol Direct < 30 VLDL Cholesterol 24.0 HDL Cholesterol 20 L Amylase Lipase TSH Free T4 Urine Color YELLOW Urine Appearance CLOUDY Urine pH 6.0 Ur Specific [place] 1.033 Urine Protein 30 H Urine Glucose (UA) NEGATIVE Urine Ketones 80 H Urine Blood LARGE H Urine Nitrite NEGATIVE Ur Leukocyte Esterase LARGE H Urine WBC (Auto) >182 Urine RBC (Auto) >182 Blood Type Antibody Screen Impressions: Abdomen/Pelvis CT 10/01/18 15:53 IMPRESSION: 1. Diffuse colitis, worsened in the interval. 2. Trace pelvic ascites. 3. Fatty infiltration of the liver. 4. Atherosclerotic disease. 2.8 cm fusiform infrarenal abdominal aortic aneurysm. 5. Nonobstructing left nephrolithiasis. Assessment & Plan - Diagnosis (1) Colitis Is this a current diagnosis for this admission?: Yes Plan: Differential diagnosis is include ischemic colitis, IBD, infectious colitis, continue IV antibiotic,consult GI (2) Hypokalemia Is this a current diagnosis for this admission?: Yes
[2018-10-02] MEDS ORDERED: POTASSI CL 20 MEQ/50 ML RIDER 20 MEQ/50 ML RTUPB IV ONE (17:09)
[2018-10-02] MEDS: ONDANSETRON HCL INJ/PF 4 MG/2 ML SDV IV PRN (17:16)
[2018-10-02] MEDS: LEVOFLOXACIN 750 MG/D5W RTU 750 MG/150 ML RTUPB IV SCH (20:29)
[2018-10-03] MEDS: METRONIDAZOLE 500 MG/NS RTU 500 MG/100 ML RTUPB IV SCH ×4 (06:16→23:55)
[2018-10-03 07:05] LABS: ABSOLUTE EOSINOPHILS # (AUTO) 0.1 10^3/uL (0.0-0.6); ABSOLUTE MONOCYTES (AUTO) 1.4 10^3/uL (0.1-1.4); ABSOLUTE NEUT (AUTO) 14.7 10^3/uL (1.7-8.2); BASOPHILS % (AUTO) 0.1 % (0-2); EOSINOPHILS % (AUTO) 0.6 % (0-6); HEMATOCRIT 35.8 % (36.0-47.0); HEMOGLOBIN 12.2 g/dL (12.0-15.5); MEAN CORPUSCULAR HEMOGLOBIN 31.3 pg (27.0-33.4); MEAN CORPUSCULAR HGB CONC 33.9 g/dL (32.0-36.0); MEAN CORPUSCULAR VOLUME 92 fl (80-97); MONOCYTES % (AUTO) 8.4 % (3-13); PLATELET COUNT 428 10^3/uL (150-450); RED BLOOD COUNT 3.88 10^6/uL (3.72-5.28); RED CELL DISTRIBUTION WIDTH 13.9 % (11.5-14.0); SEGMENTED NEUTROPHILS % (AUTO) 84.9 % (42-78); TOTAL CELLS COUNTED % (AUTO) 100 %; WHITE BLOOD COUNT 17.3 10^3/uL (4.0-10.5)
[2018-10-03 07:23] LABS: ALBUMIN 2.5 g/dL (3.5-5.0); ALKALINE PHOSPHATASE 87 U/L (38-126); ANION GAP 9 (5-19); ASPARTATE AMINO TRANSFERASE 13 U/L (14-36); BILIRUBIN,DIRECT 0.2 mg/dL (0.0-0.4); BILIRUBIN,TOTAL 0.3 mg/dL (0.2-1.3); BLOOD UREA NITROGEN 5 mg/dL (7-20); CALCIUM 7.8 mg/dL (8.4-10.2); CARBON DIOXIDE 25 mmol/L (22-30); CHLORIDE 103 mmol/L (98-107); GLUCOSE 123 mg/dL (75-110); TOTAL PROTEIN 4.9 g/dL (6.3-8.2)
[2018-10-03] MEDS: POTASSI CL 20 MEQ/50 ML RIDER 20 MEQ/50 ML RTUPB IV SCH ×3 (09:02→15:36)
--- NOTE | 2018-10-03 19:22 | PDOC PROGRESS REPORT ---
Subjective Progress Note for:: 10/03/18 Subjective:: Patient seen by the bedside, she continues to experience abdominal pain, I suspect she has ischemic colitis. The CT scan that was done on admission demonstrated atherosclerotic vascular disease that was diffuse and extensive, GI consulted, I also consult surgical list Reason For Visit: ACUTE COLITIS, INFECTIOUS, MALIGANT,ISCHEMIC Physical Exam Vital Signs: Temp Pulse Resp BP Pulse Ox 97.9 F 113 H 18 106/68 97 10/03/18 15:38 10/03/18 15:38 10/03/18 15:38 10/03/18 15:38 10/03/18 15:38 Intake & Output 10/02/18 10/03/18 10/04/18 06:59 06:59 06:59 Intake Total 1770 1238 345 Output Total 200 350 Balance 1570 888 345 Weight 76.5 kg 72.1 kg General appearance: PRESENT: mild distress Eye exam: PRESENT: PERRLA Respiratory exam: PRESENT: clear to auscultation mayra Cardiovascular exam: PRESENT: +S1, +S2 GI/Abdominal exam: PRESENT: soft Rectal exam: PRESENT: tenderness Neurological exam: PRESENT: alert, CN II-XII grossly intact Results Laboratory Results: 10/03/18 05:48 10/03/18 05:48 10/03/18 10/03/18 05:48 05:48 WBC 17.3 H RBC 3.88 Hgb 12.2 Hct 35.8 L MCV 92 MCH 31.3 MCHC 33.9 RDW 13.9 Plt Count 428 Seg Neutrophils % 84.9 H Sodium 137.4 Potassium 3.0 L* Chloride 103 Carbon Dioxide 25 Anion Gap 9 BUN 5 L Creatinine 0.64 Est GFR ( Amer) > 60 Glucose 123 H Calcium 7.8 L Total Bilirubin 0.3 AST 13 L Alkaline Phosphatase 87 Total Protein 4.9 L Albumin 2.5 L Impressions: Abdomen/Pelvis CT 10/01/18 15:53 IMPRESSION: 1. Diffuse colitis, worsened in the interval. 2. Trace pelvic ascites. 3. Fatty infiltration of the liver. 4. Atherosclerotic disease. 2.8 cm fusiform infrarenal abdominal aortic aneurysm. 5. Nonobstructing left nephrolithiasis. Assessment & Plan - Diagnosis (1) Colitis Is this a current diagnosis for this admission?: Yes Plan: Continue IV antibiotic, I suspect ischemic colitis (2) Hypokalemia Is this a current diagnosis for this admission?: Yes Plan: Replace potassium
[2018-10-03] MEDS: LEVOFLOXACIN 750 MG/D5W RTU 750 MG/150 ML RTUPB IV SCH (19:31)
[2018-10-04 05:46] LABS: ABSOLUTE EOSINOPHILS # (AUTO) 0.1 10^3/uL (0.0-0.6); ABSOLUTE MONOCYTES (AUTO) 1.4 10^3/uL (0.1-1.4); ABSOLUTE NEUT (AUTO) 15.4 10^3/uL (1.7-8.2); BASOPHILS % (AUTO) 0.1 % (0-2); EOSINOPHILS % (AUTO) 0.4 % (0-6); HEMATOCRIT 36.6 % (36.0-47.0); HEMOGLOBIN 12.3 g/dL (12.0-15.5); LYMPHOCYTES % (AUTO) 5.7 % (13-45); MEAN CORPUSCULAR HEMOGLOBIN 30.9 pg (27.0-33.4); MEAN CORPUSCULAR HGB CONC 33.6 g/dL (32.0-36.0); MEAN CORPUSCULAR VOLUME 92 fl (80-97); PLATELET COUNT 425 10^3/uL (150-450); RED BLOOD COUNT 3.98 10^6/uL (3.72-5.28); RED CELL DISTRIBUTION WIDTH 14.4 % (11.5-14.0); SEGMENTED NEUTROPHILS % (AUTO) 85.8 % (42-78); TOTAL CELLS COUNTED % (AUTO) 100 %; WHITE BLOOD COUNT 17.9 10^3/uL (4.0-10.5)
[2018-10-04 06:14] LABS: ALBUMIN 2.5 g/dL (3.5-5.0); ALKALINE PHOSPHATASE 89 U/L (38-126); ANION GAP 11 (5-19); ASPARTATE AMINO TRANSFERASE 10 U/L (14-36); BILIRUBIN,DIRECT 0.2 mg/dL (0.0-0.4); BILIRUBIN,TOTAL 0.3 mg/dL (0.2-1.3); BLOOD UREA NITROGEN 5 mg/dL (7-20); CARBON DIOXIDE 23 mmol/L (22-30); CHLORIDE 104 mmol/L (98-107); GLUCOSE 133 mg/dL (75-110); POTASSIUM 3.2 mmol/L (3.6-5.0); TOTAL PROTEIN 5.1 g/dL (6.3-8.2)
[2018-10-04] MEDS: METRONIDAZOLE 500 MG/NS RTU 500 MG/100 ML RTUPB IV SCH ×3 (09:36→20:34)
[2018-10-04] MEDS: MORPHINE SULFATE 10 MG/ML INJ IV PRN (12:15)
[2018-10-04] MEDS: POTASSIUM CHLORIDE 20 MEQ/50 ML RTU IV SCH ×2 (14:00→17:03)
[2018-10-04] MEDS ORDERED: DEXTROSE 50%-WATER 25 GM/50 ML DISP.SYRIN IV PRN ×2 (17:47)
[2018-10-04] MEDS ORDERED: DEXTROSE 40% GEL 15 GM TUBE PO PRN ×2 (17:47)
[2018-10-04] MEDS ORDERED: GLUCAGON,HUMAN RECOMB 1 MG INJ SUBCUT PRN (17:47)
--- NOTE | 2018-10-04 17:55 | PDOC PROGRESS REPORT ---
Subjective Progress Note for:: 10/04/18 Subjective:: Patient was seen by the bedside, on examination of the abdomen she has tenderness and also somewhat distended, it is looking more like a surgical abdomen, I suspected that she probably has ischemic colitis, I spoke to the surgeon, he came by to assess the patient he is also in agreement that this is probably ischemic colitis that she may need laparotomy but he wants to pursue conservative approach initially to keep n.p.o., put on TPN rest the abdomen for 2 to 3 days and then decide on laparotomy. She has persistent leukocytosis Reason For Visit: ACUTE COLITIS, INFECTIOUS, MALIGANT,ISCHEMIC Physical Exam Vital Signs: Temp Pulse Resp BP Pulse Ox 97.4 F 111 H 18 103/77 97 10/04/18 08:33 10/04/18 08:33 10/04/18 08:33 10/04/18 08:33 10/04/18 08:33 Intake & Output 10/03/18 10/04/18 10/05/18 06:59 06:59 06:59 Intake Total 1238 863 490 Output Total 350 Balance 888 863 490 Weight 72.1 kg 76 kg General appearance: PRESENT: no acute distress Eye exam: PRESENT: PERRLA Respiratory exam: PRESENT: clear to auscultation mayra Cardiovascular exam: PRESENT: +S1, +S2 GI/Abdominal exam: PRESENT: distended, tenderness Neurological exam: PRESENT: alert, CN II-XII grossly intact Results Laboratory Results: 10/04/18 05:17 10/04/18 05:17 10/04/18 10/04/18 05:17 05:17 WBC 17.9 H RBC 3.98 Hgb 12.3 Hct 36.6 MCV 92 MCH 30.9 MCHC 33.6 RDW 14.4 H Plt Count 425 Seg Neutrophils % 85.8 H Sodium 138.1 Potassium 3.2 L Chloride 104 Carbon Dioxide 23 Anion Gap 11 BUN 5 L Creatinine 0.61 Est GFR ( Amer) > 60 Glucose 133 H Calcium 8.0 L Total Bilirubin 0.3 AST 10 L Alkaline Phosphatase 89 Total Protein 5.1 L Albumin 2.5 L 10/02/18 01:08 Clean Catch Midstream Urine Culture - Final NO GROWTH 2 DAYS Impressions: Abdomen/Pelvis CT 10/01/18 15:53 IMPRESSION: 1. Diffuse colitis, worsened in the interval. 2. Trace pelvic ascites. 3. Fatty infiltration of the liver. 4. Atherosclerotic disease. 2.8 cm fusiform infrarenal abdominal aortic aneurysm. 5. Nonobstructing left nephrolithiasis. Assessment & Plan - Diagnosis (1) Colitis Is this a current diagnosis for this admission?: Yes Plan: This is probably ischemic colitis, consultation requested from surgery (2) Hypokalemia Is this a current diagnosis for this admission?: Yes Plan: Correct potassium
[2018-10-04] MEDS: ONDANSETRON HCL INJ/PF 4 MG/2 ML SDV IV PRN (18:06)
--- NOTE | 2018-10-04 18:11 | PDOC CONSULTATION ---
Consultation Consult Date: 10/04/18 Attending physician:: ARTIS VENEGAS Provider Consulted: MARY AMEZCUA Consult reason:: abdominal pain History of Present Illness Admission Date/PCP: 10/01/18 18:56 ARTIS VENEGAS MD History of Present Illness: NAN ALMEIDA is a 73 year old female7 presented to ED for complaint of severe abdominal pain nausea and vomiting and bleeding rectally. Patient states she was admitted on Wednesday for colitis and she had nausea vomiting and rectal bleeding at that time. She states she never stopped having nausea vomiting and rectal bleeding and she still has the same symptoms. She said she was discharged . She said her only medical history is colitis and COPD and she had cataract surgeries. Patient is alert oriented respirations regular and unlabored speaking in full sentences. She states she is a patient of Dr. Venegas and that is who admitted her and discharged her. She states she is a former smoker but no longer smokes does not drink and does not do drugs. She was admitted approximately 3 days ago with persistent symptoms and was readmitted to the hospital she has been in the hospital now for the last 3 days tolerating a diet but having continued complaints of abdominal pain and bloody diarrhea her primary physician asked surgical agreed to be involved today because of persistent abdominal pain. She has a significant history of smoking COPD also states she has had a previous history of colitis Past Medical History Pulmonary Medical History: Reports: Chronic Obstructive Pulmonary Disease (COPD), Pneumonia GI Medical History: Reports: Other - [facility] Medical History: Reports: Tobacco Dependency Hematology: Reports: None Past Surgical History Past Surgical History: Reports: Other - Cataract surgery Social History Smoking Status: Former Smoker Frequency of Alcohol Use: None Hx Recreational Drug Use: No Drugs: None Hx Prescription Drug Abuse: No Family History Family History: Reviewed & Not Pertinent, Arthritis Parental Family History Reviewed: No Children Family History Reviewed: NA Sibling(s) Family History Reviewed.: NA Medication/Allergy Home Medications: Pravastatin Sodium [Pravachol] 10 mg PO QHS 05/18/18 Tiotropium [place] [Spiriva Handihaler 5 Cap/Kit (18 Mcg/Cap)] 1 cap IH DAILY 05/18/18 Ciprofloxacin HCl [Cipro 500 mg Tablet] 500 mg PO BID #20 tablet MDD FILLED 09/28 FOR 10 DAY SUPPLY 09/28/18 Metronidazole [Flagyl 500 mg Tablet] 500 mg PO TID #30 tablet MDD FILLED 09/28 FOR 10 DAY SUPPLY 09/28/18 Allergies/Adverse Reactions: No Known Allergies Allergy (Verified 05/18/18 10:22) Review of Systems Constitutional: PRESENT: anorexia, fatigue, weakness Ears: ABSENT: hearing changes Nose, Mouth, and Throat: PRESENT: as per HPI Breasts: ABSENT: as per HPI, other Cardiovascular: ABSENT: chest pain, dyspnea on exertion, edema, orthropnea, palpitations Gastrointestinal: PRESENT: bloating, diarrhea, melena, nausea, vomiting Genitourinary: ABSENT: as per HPI, difficulty urinating, dysuria, hematuria, nocturia, other Musculoskeletal: ABSENT: as per HPI, back pain, deformity, joint swelling, muscle weakness, other Integumentary: ABSENT: as per HPI, diaphoresis, erythema, lesions, pruritus, rash, wounds, other Neurological: ABSENT: as per HPI, abnormal gait, abnormal movements, abnormal speech, confusion, convulsions, dizziness, focal weakness, frequent falls, lack of coordination, memory loss, numbness, paresthesias, restless legs, syncope, tingling, tremor(s), vertigo, weakness, other Psychiatric: ABSENT: as per HPI, anxiety, depression, hallucinations, homidical ideation, suicidal ideation, other Endocrine: ABSENT: as per HPI, cold intolerance, flushing, heat intolerance, menstrual abnormalities, polydipsia, polyphagia, polyuria, other Hematologic/Lymphatic: ABSENT: as per HPI, easy bleeding, easy bruising, lymphadenopathy, other Allergic/Immunologic: ABSENT: as per HPI, seasonal rhinorrhea, other Physical Exam Vital Signs: Temp Pulse Resp BP Pulse Ox 97.4 F 111 H 18 103/77 97 10/04/18 08:33 10/04/18 08:33 10/04/18 08:33 10/04/18 08:33 10/04/18 08:33 Intake & Output 10/03/18 10/04/18 10/05/18 06:59 06:59 06:59 Intake Total 1238 863 490 Output Total 350 Balance 888 863 490 Weight 72.1 kg 76 kg General appearance: PRESENT: mild distress Head exam: PRESENT: normocephalic Eye exam: PRESENT: EOMI Mouth exam: PRESENT: dry mucosa, moist Teeth exam: PRESENT: edentulous Neck exam: PRESENT: full ROM Respiratory exam: PRESENT: clear to auscultation mayra Cardiovascular exam: PRESENT: RRR Pulses: PRESENT: normal radial pulses, normal femoral pulses GI/Abdominal exam: PRESENT: other - Patient is diffusely distended slightly tympanitic tender in the right abdomen in the left abdomen to deep palpation with mild peritoneal irritation Rectal exam: PRESENT: deferred Extremities exam: PRESENT: full ROM Musculoskeletal exam: PRESENT: full ROM Neurological exam: PRESENT: awake, oriented to person, oriented to place Psychiatric exam: PRESENT: anxious Skin exam: PRESENT: dry Results Laboratory Results: 10/04/18 05:17 10/04/18 05:17 10/04/18 10/04/18 05:17 05:17 WBC 17.9 H RBC 3.98 Hgb 12.3 Hct 36.6 MCV 92 MCH 30.9 MCHC 33.6 RDW 14.4 H Plt Count 425 Seg Neutrophils % 85.8 H Sodium 138.1 Potassium 3.2 L Chloride 104 Carbon Dioxide 23 Anion Gap 11 BUN 5 L Creatinine 0.61 Est GFR ( Amer) > 60 Glucose 133 H Calcium 8.0 L Total Bilirubin 0.3 AST 10 L Alkaline Phosphatase 89 Total Protein 5.1 L Albumin 2.5 L 10/02/18 01:08 Clean Catch Midstream Urine Culture - Final NO GROWTH 2 DAYS Impressions: Abdomen/Pelvis CT 10/01/18 15:53 IMPRESSION: 1. Diffuse colitis, worsened in the interval. 2. Trace pelvic ascites. 3. Fatty infiltration of the liver. 4. Atherosclerotic disease. 2.8 cm fusiform infrarenal abdominal aortic aneurysm. 5. Nonobstructing left nephrolithiasis. Assessment & Plan - Diagnosis (1) Colitis Is this a current diagnosis for this admission?: Yes - Plan Summary Plan Summary: 73-year-old female with what appears to be a ischemic pancolitis chronic diarrhea for the last 1 to 2 weeks abdominal pain increasing in severity. CT scan has been reviewed which shows diffusely thickened colon from the mid a sending colon throughout the transverse colon splenic flexure and descending colon not evidence of free air perforation with minimal surrounding stranding. Patient has been in the hospital for approximately 3 days on IV Levaquin and Flagyl but also taking diet p.o After long discussion with the patient and her we discussed medical versus surgical treatment. I think at this point because the patient's symptoms are minimal it would be best because of her significant comorbidities including COPD obesity and peripheral peripheral vascular disease that we give a trial of medical treatment. I will stop her Levaquin and add Zosyn to her antibiotic treatment regime. We will start her on IV fluids for better hydration as she is not been on any since her hospital stay. We will make her n.p.o. and give her bowel rest. Place a PICC line tomorrow in radiology and then start her on p.o. TPN. We will check stool cultures for Salmonella and Shigella although she gives no history of recent travel also follow serial lactate levels. Repeat a contrast CT scan in 1 or 2 days for further evaluation Surgery will continue to follow.
--- NOTE | 2018-10-04 18:18 | PDOC CONSULTATION ---
Consultation Consult Date: 10/04/18 Provider Consulted: GARLAND ELENA History of Present Illness Admission Date/PCP: 10/01/18 18:56 ARTIS VENEGAS MD History of Present Illness: NAN ALMEIDA is a 73 year old femalePatient was admitted on 10/02/2018 with increased abdominal pain and abnormal CAT scan. She was admitted for observation on 09/27/2018 for abdominal pain diarrhea and a CAT scan showing thickening in the ascending colon and the hepatic flexure. She was readmitted a few days later due to increased abdominal pain and diarrhea. This time her CAT scan showed diffuse wall thickening of the colon which had increased from the previous CAT scan a few days earlier. She also has atherosclerotic calcification of the abdominal aorta and its branches with a 2.8 cm infrarenal aneurysm. She also had a fatty liver. Currently she continues to have some abdominal pain but does not appear to have changed much in the last 24 hours. There is some diarrhea and nausea. She was kept n.p.o. today and continues to be on IV antibiotics. 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), Pneumonia GI Medical History: Reports: Other - [facility] Medical History: Reports: Tobacco Dependency Hematology: Reports: None Past Surgical History Past Surgical History: Reports: Other - Cataract surgery Social History Smoking Status: Former Smoker Frequency of Alcohol Use: None Hx Recreational Drug Use: No Drugs: None Hx Prescription Drug Abuse: No Family History Family History: Reviewed & Not Pertinent, Arthritis Parental Family History Reviewed: No Children Family History Reviewed: NA Sibling(s) Family History Reviewed.: NA Medication/Allergy Home Medications: Pravastatin Sodium [Pravachol] 10 mg PO QHS 05/18/18 Tiotropium [place] [Spiriva Handihaler 5 Cap/Kit (18 Mcg/Cap)] 1 cap IH DAILY 05/18/18 Ciprofloxacin HCl [Cipro 500 mg Tablet] 500 mg PO BID #20 tablet MDD FILLED 09/28 FOR 10 DAY SUPPLY 09/28/18 Metronidazole [Flagyl 500 mg Tablet] 500 mg PO TID #30 tablet MDD FILLED 09/28 FOR 10 DAY SUPPLY 09/28/18 Allergies/Adverse Reactions: No Known Allergies Allergy (Verified 05/18/18 10:22) Review of Systems All systems: reviewed and no additional remarkable complaints except as stated Physical Exam Vital Signs: Temp Pulse Resp BP Pulse Ox 97.4 F 111 H 18 103/77 97 10/04/18 08:33 10/04/18 08:33 10/04/18 08:33 10/04/18 08:33 10/04/18 08:33 Intake & Output 10/03/18 10/04/18 10/05/18 06:59 06:59 06:59 Intake Total 1238 863 490 Output Total 350 Balance 888 863 490 Weight 72.1 kg 76 kg Exam: General: Patient is alert and appears to be in some discomfort. HEENT: There is no pallor or jaundice. PERRLA. Oropharynx normal Respiratory: No chest deformity. No respiratory distress. Chest wall palpitation was unremarkable. Breath sounds were normal Cardiovascular: Heart sounds 1 and 2 normal with no murmurs. Abdominal: Obese with mild diffuse tenderness. No rebound tenderness. Liver and spleen not palpable. No ascites demonstrated. Bowel sounds active. Rectal examination was deferred. Extremities: No edema Neurological: Alert and oriented x4. Grossly nonfocal. Normal speech Skin: No significant rash Psychological: Normal affect Results Laboratory Results: 10/04/18 05:17 10/04/18 05:17 10/04/18 10/04/18 05:17 05:17 WBC 17.9 H RBC 3.98 Hgb 12.3 Hct 36.6 MCV 92 MCH 30.9 MCHC 33.6 RDW 14.4 H Plt Count 425 Seg Neutrophils % 85.8 H Sodium 138.1 Potassium 3.2 L Chloride 104 Carbon Dioxide 23 Anion Gap 11 BUN 5 L Creatinine 0.61 Est GFR ( Amer) > 60 Glucose 133 H Calcium 8.0 L Total Bilirubin 0.3 AST 10 L Alkaline Phosphatase 89 Total Protein 5.1 L Albumin 2.5 L 10/02/18 01:08 Clean Catch Midstream Urine Culture - Final NO GROWTH 2 DAYS Impressions: Abdomen/Pelvis CT 10/01/18 15:53 IMPRESSION: 1. Diffuse colitis, worsened in the interval. 2. Trace pelvic ascites. 3. Fatty infiltration of the liver. 4. Atherosclerotic disease. 2.8 cm fusiform infrarenal abdominal aortic aneurysm. 5. Nonobstructing left nephrolithiasis. Assessment & Plan - Diagnosis (1) Ischemic colitis Is this a current diagnosis for this admission?: Yes Plan: Her presentation CT findings are consistent with ischemic colitis. Her symptoms and CAT scan did get worse over the last few days. She will continue with IV antibiotics and have been placed n.p.o. from [facility]. I added mesalamine twice a day. She was evaluated by the surgeon and currently there is no plan for birch rgery. She may also benefit from an arterial vasodilator. She will need a colonoscopy at some point in the future to confirm complete resolution. (2) Abnormal finding on GI tract imaging Is this a current diagnosis for this admission?: Yes (3) Abdominal aortic aneurysm (AAA) without rupture Is this a current diagnosis for this admission?: Yes (4) Colitis Is this a current diagnosis for this admission?: Yes
[2018-10-04] MEDS: MESALAMINE 400 MG CAPSULE.DR PO SCH (19:46)
[2018-10-04] MEDS: POTASSI CL 20 MEQ/1/2NS 1L 1000 ML IV PRN (23:11)
[2018-10-04] MEDS: PIPERACILLIN SODIUM/TAZOBACTAM 3.375 GM in NORMAL SALINE 100 ML IV SCH (23:12)
[2018-10-05] MEDS: METRONIDAZOLE 500 MG/NS RTU 500 MG/100 ML RTUPB IV SCH ×4 (00:37→18:05)
[2018-10-05] MEDS: PIPERACILLIN SODIUM/TAZOBACTAM 3.375 GM in NORMAL SALINE 100 ML IV SCH ×3 (05:23→22:43)
[2018-10-05] MEDS: MESALAMINE 400 MG CAPSULE.DR PO SCH ×2 (10:25→18:04)
--- NOTE | 2018-10-05 11:24 | PDOC PROGRESS REPORT ---
Subjective Progress Note for:: 10/05/18 Subjective:: This is a 73-year-old female with colitis of currently unknown origin, and bloody diarrhea. She complains of abdominal pain and cramping that is similar to yesterday. It is mild and colicky. She denies nausea or vomiting. She also denies chest pain, shortness of breath, dizziness, orthostasis, fevers, chills, headache, blurry vision. Reason For Visit: ACUTE COLITIS, INFECTIOUS, MALIGANT,ISCHEMIC Physical Exam Vital Signs: Temp Pulse Resp BP Pulse Ox 97.5 F 110 H 20 108/79 97 10/05/18 03:58 10/05/18 07:00 10/05/18 03:58 10/05/18 03:58 10/05/18 03:58 Intake & Output 10/04/18 10/05/18 10/06/18 06:59 06:59 06:59 Intake Total 863 840 Balance 863 840 Weight 76 kg 75.2 kg General appearance: PRESENT: obese Head exam: PRESENT: atraumatic, normocephalic Eye exam: PRESENT: EOMI, PERRLA. ABSENT: scleral icterus Mouth exam: PRESENT: moist, neck supple Neck exam: ABSENT: meningismus, tenderness, thyromegaly, tracheal deviation Respiratory exam: PRESENT: clear to auscultation mayra, unlabored. ABSENT: chest wall tenderness, tachypnea, wheezes Cardiovascular exam: PRESENT: RRR Pulses: PRESENT: normal radial pulses Vascular exam: PRESENT: normal capillary refill GI/Abdominal exam: PRESENT: soft, tenderness - Mild right-sided tenderness to palpation, other - No peritonitis. ABSENT: distended, firm, guarding, rebound, rigid Rectal exam: PRESENT: deferred Extremities exam: ABSENT: clubbing Musculoskeletal exam: ABSENT: deformity Neurological exam: PRESENT: alert, awake, oriented to person, oriented to place, oriented to time, oriented to situation, CN II-XII grossly intact Psychiatric exam: ABSENT: agitated, anxious, depressed Focused psych exam: ABSENT: delusional Skin exam: ABSENT: cyanosis, erythema, jaundice Results Laboratory Results: 10/04/18 05:17 10/04/18 05:17 10/04/18 18:40 Lactic Acid 1.2 10/02/18 01:08 Clean Catch Midstream Urine Culture - Final NO GROWTH 2 DAYS Impressions: Abdomen/Pelvis CT 10/01/18 15:53 IMPRESSION: 1. Diffuse colitis, worsened in the interval. 2. Trace pelvic ascites. 3. Fatty infiltration of the liver. 4. Atherosclerotic disease. 2.8 cm fusiform infrarenal abdominal aortic aneurysm. 5. Nonobstructing left nephrolithiasis. Assessment & Plan - Diagnosis (1) Colitis Is this a current diagnosis for this admission?: Yes - Plan Summary Plan Summary: This is a 73-year-old female with right sided colitis of uncertain etiology. It may be ischemic versus infectious. Stool studies are pending. Currently, the patient is on antibiotics, bowel rest, and being adequately hydrated. She does not exhibit signs of peritonitis or clinical decompensation. If possible, a medical approach to this patient's colitis is preferred. Surgery will continue to follow the patient very closely with you, and monitor for decompensation. If the patient experiences decompensation, she may require colectomy on an urgent/emergent basis. We will reserve surgery as a last resort. Continue anti biotics. Continue supportive care. Will follow.
[2018-10-05 12:11] LABS: ABSOLUTE EOSINOPHILS # (AUTO) 0.1 10^3/uL (0.0-0.6); ABSOLUTE LYMPHOCYTES (AUTO) 1.1 10^3/uL (0.5-4.7); ABSOLUTE MONOCYTES (AUTO) 1.5 10^3/uL (0.1-1.4); ABSOLUTE NEUT (AUTO) 11.9 10^3/uL (1.7-8.2); BASOPHILS % (AUTO) 0.1 % (0-2); EOSINOPHILS % (AUTO) 0.7 % (0-6); HEMATOCRIT 36.2 % (36.0-47.0); HEMOGLOBIN 12.1 g/dL (12.0-15.5); LYMPHOCYTES % (AUTO) 7.7 % (13-45); MEAN CORPUSCULAR HEMOGLOBIN 30.9 pg (27.0-33.4); MEAN CORPUSCULAR HGB CONC 33.5 g/dL (32.0-36.0); MEAN CORPUSCULAR VOLUME 92 fl (80-97); MONOCYTES % (AUTO) 10.2 % (3-13); PLATELET COUNT 459 10^3/uL (150-450); RED BLOOD COUNT 3.93 10^6/uL (3.72-5.28); RED CELL DISTRIBUTION WIDTH 14.9 % (11.5-14.0); SEGMENTED NEUTROPHILS % (AUTO) 81.3 % (42-78); TOTAL CELLS COUNTED % (AUTO) 100 %; WHITE BLOOD COUNT 14.7 10^3/uL (4.0-10.5)
[2018-10-05 12:28] LABS: ALBUMIN 2.4 g/dL (3.5-5.0); ALKALINE PHOSPHATASE 76 U/L (38-126); ANION GAP 10 (5-19); ASPARTATE AMINO TRANSFERASE 11 U/L (14-36); BILIRUBIN,DIRECT 0.4 mg/dL (0.0-0.4); BILIRUBIN,TOTAL 0.4 mg/dL (0.2-1.3); BLOOD UREA NITROGEN 7 mg/dL (7-20); CALCIUM 7.9 mg/dL (8.4-10.2); CARBON DIOXIDE 25 mmol/L (22-30); CHLORIDE 104 mmol/L (98-107); GLUCOSE 138 mg/dL (75-110); POTASSIUM 3.2 mmol/L (3.6-5.0); TOTAL PROTEIN 5.2 g/dL (6.3-8.2)
--- NOTE | 2018-10-05 13:05 | RADIOLOGY REPORT (SQ) ---
EXAM DESCRIPTION: PICC INSERTION COMPLETED DATE/TIME: 10/05/2018 12:55 pm REASON FOR STUDY: NEED FOR VASCULAR ACCESS COMPARISON: None. FLUOROSCOPY TIME: 1.2 minutes 6 images saved to PACS. TECHNIQUE: Fluoroscopic and ultrasound guided PICC placement. LIMITATIONS: None. PROCEDURE: After written consent and assessment were obtained, the patient was brought into the fluo roscopy room and placed supine on the table. Ultrasound evaluation of potential access sites were per formed. After successfully identifying a patent right basilic vein, the right arm was prepped and victor manuel ped in a sterile fashion along with the ultrasound probe. The entry site was anesthetized with 1% lid ocaine. A 21 gauge 7 cm needle was advanced through the skin and into the basilic vein under live ult rasound guidance. An ultrasound image was saved to PACS confirming access site. A .018 guide wire w as then inserted through the needle and into the venous system. The needle was then removed and an 11 blade scalpel was used to make a 1cm skin incision. A 5 fr peel-away sheath was advanced over the w kylah and into the venous system. A measurement was then made using the existing wire and live fluorosc opic guidance. The wire was then removed and trimmed. The PICC was advanced through the peel-away she ath and into the venous system. The peel-away sheath was removed and the catheter was adhered to the patients arm with a stat lock. The catheter was then aspirated and flushed and a sterile bandage was placed over the access site. A fluoroscopic spot image was saved to PACS confirming the catheter tip within the superior vena cava. IMPRESSION: SUCCESSFUL PLACEMENT OF A 5 FR SINGLE LUMEN 38 CM PICC IN THE RIGHT BASILIC VEIN. COMMENT: Patient medication list reviewed: Yes- Quality ID# 130:Eligible professional attests to doc umenting in the medical record they obtained, updated, or reviewed the patient's current medications. . Quality ID 145: Final reports for procedures using fluoroscopy that document radiation exposure kali nydia, or exposure time and number of fluorographic images (if radiation exposure indices are not avail able) Quality ID #76: The patient was prepped and draped using maximum sterile barrier technique including cap, mask, sterile gown, sterile gloves, a large sterile sheet, hand hygiene, and 2% Chlorhexidine fo r cutaneous antisepsis. When ultrasound is used, sterile ultrasound techniques are followed requiring sterile gel and sterile probes. TECHNICAL DOCUMENTATION: JOB ID: [id number] [employer]- All Rights Reserved rev-06/25 Reading location - IP/workstation name: [email or web address]
[2018-10-05] MEDS: POTASSI CL 20 MEQ/1/2NS 1L 1000 ML IV PRN (13:42)
--- NOTE | 2018-10-05 15:48 | PDOC PROGRESS REPORT ---
Subjective Progress Note for:: 10/05/18 Subjective:: Patient seen by the bedside, she has less abdominal pain, she had a PICC line inserted today, the tentative plan is to keep n.p.o. and initiate TPN Reason For Visit: ACUTE COLITIS, INFECTIOUS, MALIGANT,ISCHEMIC Physical Exam Vital Signs: Temp Pulse Resp BP Pulse Ox 97.5 F 110 H 20 108/79 97 10/05/18 03:58 10/05/18 07:00 10/05/18 03:58 10/05/18 03:58 10/05/18 03:58 Intake & Output 10/04/18 10/05/18 10/06/18 06:59 06:59 06:59 Intake Total 505 475 1138 Balance 311 778 4146 Weight 76 kg 75.2 kg General appearance: PRESENT: no acute distress Eye exam: PRESENT: PERRLA Respiratory exam: PRESENT: clear to auscultation mayra Cardiovascular exam: PRESENT: +S1, +S2 GI/Abdominal exam: PRESENT: soft Neurological exam: PRESENT: alert Results Laboratory Results: 10/05/18 11:36 10/05/18 11:36 10/04/18 10/05/18 10/05/18 18:40 11:36 11:36 WBC 14.7 H RBC 3.93 Hgb 12.1 Hct 36.2 MCV 92 MCH 30.9 MCHC 33.5 RDW 14.9 H Plt Count 459 H Seg Neutrophils % 81.3 H Sodium 138.9 Potassium 3.2 L Chloride 104 Carbon Dioxide 25 Anion Gap 10 BUN 7 Creatinine 0.69 Est GFR ( Amer) > 60 Glucose 138 H Lactic Acid 1.2 Calcium 7.9 L Total Bilirubin 0.4 AST 11 L Alkaline Phosphatase 76 Total Protein 5.2 L Albumin 2.4 L 10/02/18 01:08 Clean Catch Midstream Urine Culture - Final NO GROWTH 2 DAYS Impressions: Abdomen/Pelvis CT 10/01/18 15:53 IMPRESSION: 1. Diffuse colitis, worsened in the interval. 2. Trace pelvic ascites. 3. Fatty infiltration of the liver. 4. Atherosclerotic disease. 2.8 cm fusiform infrarenal abdominal aortic aneurysm. 5. Nonobstructing left nephrolithiasis. PICC Line Insertion 10/05/18 00:00 IMPRESSION: SUCCESSFUL PLACEMENT OF A 5 FR SINGLE LUMEN 38 CM PICC IN THE RIGHT BASILIC VEIN. Assessment & Plan - Diagnosis (1) Ischemic colitis Is this a current diagnosis for this admission?: Yes Plan: Continue present line of management, conservative approach, pain control, IV antibiotic (2) Colitis Is this a current diagnosis for this admission?: Yes (3) Hypokalemia Is this a current diagnosis for this admission?: Yes (4) Abdominal aortic aneurysm (AAA) without rupture Is this a current diagnosis for this admission?: Yes Plan: AAA, 2.8 cm, no indication for intervention
[2018-10-05] MEDS ORDERED: POTASSI CL 20 MEQ/50 ML RIDER 20 MEQ/50 ML RTUPB IV SCH (20:00)
[2018-10-05] MEDS: NORMAL SALINE 10 ML SDV (SCHEDULED) IV SCH (23:38)
[2018-10-06] MEDS ORDERED: POTASSI CL 20 MEQ/50 ML RIDER 20 MEQ/50 ML RTUPB IV SCH
[2018-10-06] MEDS: PIPERACILLIN SODIUM/TAZOBACTAM 3.375 GM in NORMAL SALINE 100 ML IV SCH ×3 (05:37→22:15)
[2018-10-06 06:53] LABS: ABSOLUTE EOSINOPHILS # (AUTO) 0.2 10^3/uL (0.0-0.6); ABSOLUTE LYMPHOCYTES (AUTO) 1.1 10^3/uL (0.5-4.7); ABSOLUTE MONOCYTES (AUTO) 1.5 10^3/uL (0.1-1.4); ABSOLUTE NEUT (AUTO) 11.8 10^3/uL (1.7-8.2); BASOPHILS % (AUTO) 0.1 % (0-2); EOSINOPHILS % (AUTO) 1.5 % (0-6); HEMATOCRIT 35.2 % (36.0-47.0); HEMOGLOBIN 11.8 g/dL (12.0-15.5); LYMPHOCYTES % (AUTO) 7.4 % (13-45); MEAN CORPUSCULAR HGB CONC 33.4 g/dL (32.0-36.0); MEAN CORPUSCULAR VOLUME 93 fl (80-97); MONOCYTES % (AUTO) 10.5 % (3-13); PLATELET COUNT 463 10^3/uL (150-450); RED BLOOD COUNT 3.79 10^6/uL (3.72-5.28); RED CELL DISTRIBUTION WIDTH 14.6 % (11.5-14.0); SEGMENTED NEUTROPHILS % (AUTO) 80.5 % (42-78); TOTAL CELLS COUNTED % (AUTO) 100 %; WHITE BLOOD COUNT 14.7 10^3/uL (4.0-10.5)
[2018-10-06] MEDS: POTASSI CL 20 MEQ/1/2NS 1L 1000 ML IV PRN ×2 (07:57→16:22)
[2018-10-06 08:39] LABS: ALBUMIN 2.4 g/dL (3.5-5.0); ALKALINE PHOSPHATASE 93 U/L (38-126); ANION GAP 8 (5-19); ASPARTATE AMINO TRANSFERASE 16 U/L (14-36); BILIRUBIN,DIRECT 0.4 mg/dL (0.0-0.4); BILIRUBIN,TOTAL 0.4 mg/dL (0.2-1.3); BLOOD UREA NITROGEN 7 mg/dL (7-20); CALCIUM 7.8 mg/dL (8.4-10.2); CARBON DIOXIDE 25 mmol/L (22-30); CHLORIDE 107 mmol/L (98-107); GLUCOSE 125 mg/dL (75-110); POTASSIUM 3.4 mmol/L (3.6-5.0); TOTAL PROTEIN 5.7 g/dL (6.3-8.2)
[2018-10-06] MEDS ORDERED: DEXTROSE 40% GEL 15 GM TUBE PO PRN (09:00)
[2018-10-06] MEDS ORDERED: DEXTROSE 50%-WATER SYRINGE 25 GM/50 ML DOSE IV PRN (09:00)
[2018-10-06] MEDS ORDERED: DEXTROSE 50%-WATER SYRINGE 12.5 GM/25 ML DOSE IV PRN (09:00)
[2018-10-06] MEDS ORDERED: DEXTROSE 10%-WATER 1,000 ML IV PRN (09:00)
[2018-10-06] MEDS ORDERED: DEXTROSE 40% GEL 15 GM TUBE X 2 PO PRN (09:00)
[2018-10-06] MEDS ORDERED: GLUCAGON,HUMAN RECOMB 1 MG INJ IM PRN (09:00)
[2018-10-06] MEDS ORDERED: FAT EMULSIONS 250 ML IV SCH ×2 (10:00→14:00)
--- NOTE | 2018-10-06 10:06 | PDOC PROGRESS REPORT ---
Subjective Progress Note for:: 10/06/18 Subjective:: No pains but with mild RLQ tenderness Reason For Visit: ACUTE COLITIS, INFECTIOUS, MALIGANT,ISCHEMIC Physical Exam Vital Signs: Temp Pulse Resp BP Pulse Ox 97.8 F 109 H 18 117/60 98 10/06/18 07:50 10/06/18 07:50 10/06/18 07:50 10/06/18 07:50 10/06/18 07:50 Intake & Output 10/05/18 10/06/18 10/07/18 06:59 06:59 06:59 Intake Total 840 2700 Balance 840 2700 Weight 75.2 kg Exam: Abdomen is soft with mild tenderness RLQ Results Laboratory Results: 10/06/18 05:42 10/06/18 05:42 10/05/18 10/05/18 10/05/18 11:36 11:36 14:30 WBC 14.7 H RBC 3.93 Hgb 12.1 Hct 36.2 MCV 92 MCH 30.9 MCHC 33.5 RDW 14.9 H Plt Count 459 H Seg Neutrophils % 81.3 H Sodium 138.9 Potassium 3.2 L Chloride 104 Carbon Dioxide 25 Anion Gap 10 BUN 7 Creatinine 0.69 Est GFR ( Amer) > 60 Glucose 138 H Calcium 7.9 L Total Bilirubin 0.4 AST 11 L Alkaline Phosphatase 76 Total Protein 5.2 L Albumin 2.4 L Stool for White Cells MANY H 10/06/18 10/06/18 05:42 05:42 WBC 14.7 H RBC 3.79 Hgb 11.8 L Hct 35.2 L MCV 93 MCH 31.0 MCHC 33.4 RDW 14.6 H Plt Count 463 H Seg Neutrophils % 80.5 H Sodium 139.5 Potassium 3.4 L Chloride 107 Carbon Dioxide 25 Anion Gap 8 BUN 7 Creatinine 0.66 Est GFR ( Amer) > 60 Glucose 125 H Calcium 7.8 L Total Bilirubin 0.4 AST 16 Alkaline Phosphatase 93 Total Protein 5.7 L Albumin 2.4 L Stool for White Cells Impressions: Abdomen/Pelvis CT 10/01/18 15:53 IMPRESSION: 1. Diffuse colitis, worsened in the interval. 2. Trace pelvic ascites. 3. Fatty infiltration of the liver. 4. Atherosclerotic disease. 2.8 cm fusiform infrarenal abdominal aortic aneurys m. 5. Nonobstructing left nephrolithiasis. PICC Line Insertion 10/05/18 00:00 IMPRESSION: SUCCESSFUL PLACEMENT OF A 5 FR SINGLE LUMEN 38 CM PICC IN THE RIGHT BASILIC VEIN. Assessment & Plan - Diagnosis (1) Leukocytosis Qualifiers: Leukocytosis type: unspecified Qualified Code(s): D72.829 - Elevated white blood cell count, unspecified Is this a current diagnosis for this admission?: Yes (2) Colitis Is this a current diagnosis for this admission?: Yes - Time Time Spent with patient: 15-24 minutes - Inpatient Certification Medical Necessity: Need For IV Fluids, Need for IV Antibiotics, Risk of Comp lication if Not Cared For in Hospital - Plan Summary Plan Summary: Continue IV antibiotics. Start tpn Recheck CBC and lytes in am.
[2018-10-06] MEDS ORDERED: POTASSI CL 20 MEQ/50 ML RIDER 20 MEQ/50 ML RTUPB IV ONE (10:30)
[2018-10-06] MEDS: MESALAMINE 400 MG CAPSULE.DR PO SCH ×2 (10:37→18:30)
[2018-10-06 10:47] LABS: MEAN CORPUSCULAR HGB CONC 33.3 g/dL (32.0-36.0); MEAN CORPUSCULAR VOLUME 93 fl (80-97); PLATELET COUNT 484 10^3/uL (150-450); RED BLOOD COUNT 3.87 10^6/uL (3.72-5.28); RED CELL DISTRIBUTION WIDTH 14.8 % (11.5-14.0)
[2018-10-06] MEDS: NORMAL SALINE 10 ML SDV (SCHEDULED) IV SCH ×2 (10:48→22:01)
[2018-10-06 10:51] LABS: INTERNATIONAL RATION (INR) 1.24; PROTHROMBIN TIME 15.7 SEC (11.4-15.4)
[2018-10-06 11:09] LABS: PHOSPHORUS 2.2 mg/dL (2.5-4.5)
[2018-10-06 11:17] LABS: PREALBUMIN 6.9 mg/dL (17.6-36.0)
[2018-10-06] MEDS: INSULIN REG, HUMAN 100 UNIT/ML 3 ML VIAL (PYX) SUBCUT SCH ×2 (13:37→19:50)
[2018-10-06] MEDS ORDERED: AMINO ACIDS 5 %/DEXTROSE 20 % 1,000 ML IV PRN (14:00)
[2018-10-06] MEDS: AMINO ACIDS 5 %/DEXTROSE 20 % 1,000 ML IV PRN (18:30)
--- NOTE | 2018-10-06 20:11 | PDOC PROGRESS REPORT ---
Subjective Progress Note for:: 10/06/18 Subjective:: Patient seen by the bedside, she remains n.p.o. on TPN, she is mix mill tender in the right lower quadrant, there is persistent leukocytosis, she has ischemic colitis conservative approach is being pursued at this time for this patient, so far there is no clinical decompensation that would warrant immediate laparotomy Reason For Visit: ACUTE COLITIS, INFECTIOUS, MALIGANT,ISCHEMIC Physical Exam Vital Signs: Temp Pulse Resp BP Pulse Ox 97.5 F 112 H 20 111/50 L 99 10/06/18 15:58 10/06/18 15:58 10/06/18 15:58 10/06/18 15:58 10/06/18 15:58 Intake & Output 10/05/18 10/06/18 10/07/18 06:59 06:59 06:59 Intake Total 840 2700 1100 Balance 840 2700 1100 Weight 75.2 kg General appearance: PRESENT: no acute distress Eye exam: PRESENT: PERRLA Ear exam: PRESENT: normal external ear exam Mouth exam: PRESENT: moist, tongue midline Neck exam: PRESENT: full ROM Respiratory exam: PRESENT: clear to auscultation mayra Cardiovascular exam: PRESENT: RRR, +S1, +S2 Vascular exam: PRESENT: normal capillary refill GI/Abdominal exam: PRESENT: normal bowel sounds, soft Rectal exam: PRESENT: deferred Neurological exam: PRESENT: alert, CN II-XII grossly intact Psychiatric exam: PRESENT: appropriate affect, normal mood Skin exam: PRESENT: dry, intact, warm Results Laboratory Results: 10/06/18 10:25 10/06/18 05:42 10/06/18 10/06/18 10/06/18 05:42 05:42 10:25 WBC 14.7 H 15.0 H RBC 3.79 3.87 Hgb 11.8 L 12.0 Hct 35.2 L 36.0 MCV 93 93 MCH 31.0 31.0 MCHC 33.4 33.3 RDW 14.6 H 14.8 H Plt Count 463 H 484 H Seg Neutrophils % 80.5 H Sodium 139.5 Potassium 3.4 L Chloride 107 Carbon Dioxide 25 Anion Gap 8 BUN 7 Creatinine 0.66 Est GFR ( Amer) > 60 Glucose 125 H Calcium 7.8 L Phosphorus Magnesium Total Bilirubin 0.4 AST 16 Alkaline Phosphatase 93 Total Protein 5.7 L Albumin 2.4 L Prealbumin Triglycerides 10/06/18 10:25 WBC RBC Hgb Hct MCV MCH MCHC RDW Plt Count Seg Neutrophils % Sodium Potassium Chloride Carbon Dioxide Anion Gap BUN Creatinine Est GFR ( Amer) Glucose Calcium Phosphorus 2.2 L Magnesium 2.3 Total Bilirubin AST Alkaline Phosphatase Total Protein Albumin Prealbumin 6.9 L Triglycerides 135 10/01/18 17:27 Blood Blood Culture - Final NO GROWTH IN 5 DAYS 10/01/18 15:09 Blood Blood Culture - Final NO GROWTH IN 5 DAYS Impressions: Abdomen/Pelvis CT 10/01/18 15:53 IMPRESSION: 1. Diffuse colitis, worsened in the interval. 2. Trace pelvic ascites. 3. Fatty infiltration of the liver. 4. Atherosclerotic disease. 2.8 cm fusiform infrarenal abdominal aortic aneurysm. 5. Nonobstructing left nephrolithiasis. PICC Line Insertion 10/05/18 00:00 IMPRESSION: SUCCESSFUL PLACEMENT OF A 5 FR SINGLE LUMEN 38 CM PICC IN THE RIGHT BASILIC VEIN. Assessment & Plan - Diagnosis (1) Colitis Is this a current diagnosis for this admission?: Yes (2) Hypokalemia Is this a current diagnosis for this admission?: Yes (3) Abdominal aortic aneurysm (AAA) without rupture Is this a current diagnosis for this admission?: Yes (4) Ischemic colitis Is this a current diagnosis for this admission?: Yes Plan: Continue n.p.o., continue IV antibiotic
[2018-10-06] MEDS: ONDANSETRON HCL INJ/PF 4 MG/2 ML SDV IV PRN (23:59)
[2018-10-07] MEDS: INSULIN REG, HUMAN 100 UNIT/ML 3 ML VIAL (PYX) SUBCUT SCH ×4 (00:18→17:48)
[2018-10-07] MEDS: POTASSI CL 20 MEQ/1/2NS 1L 1000 ML IV PRN ×3 (01:33→21:38)
[2018-10-07] MEDS: PIPERACILLIN SODIUM/TAZOBACTAM 3.375 GM in NORMAL SALINE 100 ML IV SCH ×3 (05:18→21:38)
[2018-10-07 06:40] LABS: ABSOLUTE EOSINOPHILS # (AUTO) 0.2 10^3/uL (0.0-0.6); ABSOLUTE LYMPHOCYTES (AUTO) 1.3 10^3/uL (0.5-4.7); ABSOLUTE NEUT (AUTO) 9.6 10^3/uL (1.7-8.2); BASOPHILS % (AUTO) 0.1 % (0-2); EOSINOPHILS % (AUTO) 1.5 % (0-6); HEMOGLOBIN 11.4 g/dL (12.0-15.5); LYMPHOCYTES % (AUTO) 10.5 % (13-45); MEAN CORPUSCULAR HEMOGLOBIN 31.1 pg (27.0-33.4); MEAN CORPUSCULAR HGB CONC 33.4 g/dL (32.0-36.0); MEAN CORPUSCULAR VOLUME 93 fl (80-97); MONOCYTES % (AUTO) 8.7 % (3-13); PLATELET COUNT 444 10^3/uL (150-450); RED BLOOD COUNT 3.65 10^6/uL (3.72-5.28); RED CELL DISTRIBUTION WIDTH 14.6 % (11.5-14.0); SEGMENTED NEUTROPHILS % (AUTO) 79.2 % (42-78); TOTAL CELLS COUNTED % (AUTO) 100 %; WHITE BLOOD COUNT 12.1 10^3/uL (4.0-10.5)
[2018-10-07 06:59] LABS: ALBUMIN 2.2 g/dL (3.5-5.0); ALKALINE PHOSPHATASE 97 U/L (38-126); ANION GAP 6 (5-19); ASPARTATE AMINO TRANSFERASE 11 U/L (14-36); BILIRUBIN,DIRECT 0.3 mg/dL (0.0-0.4); BILIRUBIN,TOTAL 0.3 mg/dL (0.2-1.3); BLOOD UREA NITROGEN 6 mg/dL (7-20); CALCIUM 7.5 mg/dL (8.4-10.2); CARBON DIOXIDE 24 mmol/L (22-30); CHLORIDE 107 mmol/L (98-107); GLUCOSE 192 mg/dL (75-110); PHOSPHORUS 1.5 mg/dL (2.5-4.5); POTASSIUM 3.2 mmol/L (3.6-5.0); TOTAL PROTEIN 4.9 g/dL (6.3-8.2)
[2018-10-07 07:06] LABS: PREALBUMIN 7.5 mg/dL (17.6-36.0)
[2018-10-07] MEDS: MESALAMINE 400 MG CAPSULE.DR PO SCH ×2 (09:52→17:40)
[2018-10-07] MEDS: NORMAL SALINE 10 ML SDV (SCHEDULED) IV SCH ×3 (10:05→21:14)
--- NOTE | 2018-10-07 13:17 | RADIOLOGY REPORT (SQ) ---
EXAM DESCRIPTION: CHEST SINGLE VIEW COMPLETED DATE/TIME: 10/07/2018 1:08 pm REASON FOR STUDY: crackles COMPARISON: 05/18/2018 NUMBER OF VIEWS: One view. TECHNIQUE: Single frontal radiographic image of the chest acquired. LIMITATIONS: None. FINDINGS: LUNGS AND PLEURA: Stable appearance. MEDIASTINUM AND HILAR STRUCTURES: Normal in appearance. HEART AND VASCULAR STRUCTURES: Normal. BONES: No acute findings. OTHER: A right-sided PICC line has been placed since prior study. Catheter tip overlies the SVC. IMPRESSION: No acute findings in the chest. A right-sided PICC line has been added. Tip overlies t he SVC. TECHNICAL DOCUMENTATION: JOB ID: [id number] [employer]- All Rights Reserved Reading location - IP/workstation name: [email or web address]
--- NOTE | 2018-10-07 16:27 | PDOC PROGRESS REPORT ---
Subjective Progress Note for:: 10/07/18 Subjective:: more comfortable.Less pains Having light bloody BM with flatus Reason For Visit: ACUTE COLITIS, INFECTIOUS, MALIGANT,ISCHEMIC Physical Exam Vital Signs: Temp Pulse Resp BP Pulse Ox 98.0 F 111 H 14 108/56 L 98 10/07/18 08:17 10/07/18 08:17 10/07/18 08:17 10/07/18 08:17 10/07/18 08:17 Intake & Output 10/06/18 10/07/18 10/08/18 06:59 06:59 06:59 Intake Total 2700 2435 1480 Balance 2700 2435 1480 Weight 85.5 kg Exam: Abdomen just slightly distended. Denies any tenderness Results Laboratory Results: 10/07/18 05:21 10/07/18 05:21 10/07/18 10/07/18 05:21 05:21 WBC 12.1 H RBC 3.65 L Hgb 11.4 L Hct 34.0 L MCV 93 MCH 31.1 MCHC 33.4 RDW 14.6 H Plt Count 444 Seg Neutrophils % 79.2 H Sodium 136.6 L Potassium 3.2 L Chloride 107 Carbon Dioxide 24 Anion Gap 6 BUN 6 L Creatinine 0.52 Est GFR ( Amer) > 60 Glucose 192 H Calcium 7.5 L Phosphorus 1.5 L Total Bilirubin 0.3 AST 11 L Alkaline Phosphatase 97 Total Protein 4.9 L Albumin 2.2 L Prealbumin 7.5 L 10/05/18 14:30 Stool - Stool - Final 10/05/18 14:30 Stool - Stool Stool Culture - Final NO SALMONELLA, SHIGELLA, CAMPYLOBACTER, OR E.COLI 0157 RECOVERED. NEGATIVE FOR SHIGA TOXINS 1&2. 10/01/18 17:27 Blood Blood Culture - Final NO GROWTH IN 5 DAYS 10/01/18 15:09 Blood Blood Culture - Final NO GROWTH IN 5 DAYS Impressions: Abdomen/Pelvis CT 10/01/18 15:53 IMPRESSION: 1. Diffuse colitis, worsened in the interval. 2. Trace pelvic ascites. 3. Fatty infiltration of the liver. 4. Atherosclerotic disease. 2.8 cm fusiform infrarenal abdominal aortic aneurysm. 5. Nonobstructing left nephrolithiasis. PICC Line Insertion 10/05/18 00:00 IMPRESSION: SUCCESSFUL PLACEMENT OF A 5 FR SINGLE LUMEN 38 CM PICC IN THE RIGHT BASILIC VEIN. Chest X-Ray 10/07/18 00:00 IMPRESSION: No acute findings in the chest. A right-sided PICC line has been added. Tip overlies the SVC. Assessment & Plan - Diagnosis (1) Leukocytosis Qualifiers: Leukocytosis type: unspecified Qualified Code(s): D72.829 - Elevated white blood cell count, unspecified Is this a current diagnosis for this admission?: Yes (2) Colitis Is this a current diagnosis for this admission?: Yes - Time Time Spent with patient: 15-24 minutes - Inpatient Certification Medical Necessity: Need For IV Fluids, Need for IV Antibiotics - Plan Summary Plan Summary: 73 yo female on day 6 from admission for Colitis on IV Zosyn. Her WBC is trending down with WBC today at 12,000 from 15,000 yesterday. She is feeling more comfortable today and having some light bloody BM with flatus. Abdomen is soft, non tender with mild distentio Plan: 1) Continue IV Zosyn 2) Continue TPN until able to tolerate regular diet 3) Start clears today 4) Monitor labs
--- NOTE | 2018-10-07 18:55 | PDOC PROGRESS REPORT ---
Subjective Progress Note for:: 10/07/18 Subjective:: Patient seen by the bedside, she was admitted for the management of colitis, the presumptive diagnosis is ischemic colitis, surgery is following, she is presently on TPN, the abdomen is somewhat tender in the right lower quadrant where it has always been tender, she has persistent leukocytosis slightly down today compared to Prior days. She complains of shortness of breath, she has underlining COPD, on auscultation of the chest she has basilar crackles, a stat chest x-ray was obtained, there was no acute pathology on the chest x-ray Reason For Visit: ACUTE COLITIS, INFECTIOUS, MALIGANT,ISCHEMIC Physical Exam Vital Signs: Temp Pulse Resp BP Pulse Ox 98.0 F 111 H 14 108/56 L 98 10/07/18 08:17 10/07/18 08:17 10/07/18 08:17 10/07/18 08:17 10/07/18 08:17 Intake & Output 10/06/18 10/07/18 10/08/18 06:59 06:59 06:59 Intake Total 2700 2435 1940 Output Total 400 Balance 2700 2435 1540 Weight 85.5 kg General appearance: PRESENT: no acute distress Eye exam: PRESENT: PERRLA Respiratory exam: PRESENT: clear to auscultation mayra, rales Cardiovascular exam: PRESENT: +S1, +S2 GI/Abdominal exam: PRESENT: soft Neurological exam: PRESENT: alert Results Laboratory Results: 10/07/18 05:21 10/07/18 05:21 10/07/18 10/07/18 05:21 05:21 WBC 12.1 H RBC 3.65 L Hgb 11.4 L Hct 34.0 L MCV 93 MCH 31.1 MCHC 33.4 RDW 14.6 H Plt Count 444 Seg Neutrophils % 79.2 H Sodium 136.6 L Potassium 3.2 L Chloride 107 Carbon Dioxide 24 Anion Gap 6 BUN 6 L Creatinine 0.52 Est GFR ( Amer) > 60 Glucose 192 H Calcium 7.5 L Phosphorus 1.5 L Total Bilirubin 0.3 AST 11 L Alkaline Phosphatase 97 Total Protein 4.9 L Albumin 2.2 L Prealbumin 7.5 L 10/05/18 14:30 Stool - Stool - Final 10/05/18 14:30 Stool - Stool Stool Culture - Final NO SALMONELLA, SHIGELLA, CAMPYLOBACTER, OR E.COLI 0157 RECOVERED. NEGATIVE FOR SHIGA TOXINS 1&2. 10/01/18 17:27 Blood Blood Culture - Final NO GROWTH IN 5 DAYS 10/01/18 15:09 Blood Blood Culture - Final NO GROWTH IN 5 DAYS Impressions: Abdomen/Pelvis CT 10/01/18 15:53 IMPRESSION: 1. Diffuse colitis, worsened in the interval. 2. Trace pelvic ascites. 3. Fatty infiltration of the liver. 4. Atherosclerotic disease. 2.8 cm fusiform infrarenal abdominal aortic aneurysm. 5. Nonobstructing left nephrolithiasis. PICC Line Insertion 10/05/18 00:00 IMPRESSION: SUCCESSFUL PLACEMENT OF A 5 FR SINGLE LUMEN 38 CM PICC IN THE RIGHT BASILIC VEIN. Chest X-Ray 10/07/18 00:00 IMPRESSION: No acute findings in the chest. A right-sided PICC line has been added. Tip overlies the SVC. Assessment & Plan - Diagnosis (1) Colitis Is this a current diagnosis for this admission?: Yes Plan: Continue IV antibiotic, n.p.o., clear liquid diet is introduced (2) Hypokalemia Is this a current diagnosis for this admission?: Yes (3) Abdominal aortic aneurysm (AAA) without rupture Is this a current diagnosis for this admission?: Yes (4) Ischemic colitis Is this a current diagnosis for this admission?: Yes
[2018-10-07] MEDS: AMINO ACIDS 5 %/DEXTROSE 20 % 1,000 ML IV PRN (21:05)
[2018-10-07] MEDS: MORPHINE SULFATE 10 MG/ML INJ IV PRN (21:43)
[2018-10-08] MEDS: INSULIN REG, HUMAN 100 UNIT/ML 3 ML VIAL (PYX) SUBCUT SCH ×4 (00:24→19:25)
[2018-10-08] MEDS: PIPERACILLIN SODIUM/TAZOBACTAM 3.375 GM in NORMAL SALINE 100 ML IV SCH ×3 (05:01→22:48)
[2018-10-08 05:47] LABS: ALBUMIN 2.2 g/dL (3.5-5.0); ALKALINE PHOSPHATASE 100 U/L (38-126); ANION GAP 6 (5-19); ASPARTATE AMINO TRANSFERASE 14 U/L (14-36); BILIRUBIN,DIRECT 0.3 mg/dL (0.0-0.4); BILIRUBIN,TOTAL 0.4 mg/dL (0.2-1.3); BLOOD UREA NITROGEN 4 mg/dL (7-20); CALCIUM 7.6 mg/dL (8.4-10.2); CARBON DIOXIDE 25 mmol/L (22-30); CHLORIDE 106 mmol/L (98-107); GLUCOSE 200 mg/dL (75-110); PHOSPHORUS 1.4 mg/dL (2.5-4.5); POTASSIUM 3.7 mmol/L (3.6-5.0); TOTAL PROTEIN 5.1 g/dL (6.3-8.2)
[2018-10-08 05:53] LABS: PREALBUMIN 9.1 mg/dL (17.6-36.0)
--- NOTE | 2018-10-08 08:59 | PDOC PROGRESS REPORT ---
Subjective Progress Note for:: 10/08/18 Subjective:: Patient does feel better; tolerating clear liquid diet ; still requiring narcotics. Reason For Visit: ACUTE COLITIS, INFECTIOUS, MALIGANT,ISCHEMIC Physical Exam Vital Signs: Temp Pulse Resp BP Pulse Ox 98.1 F 108 H 16 94/59 L 99 10/08/18 07:30 10/08/18 07:30 10/08/18 07:30 10/08/18 07:30 10/08/18 07:30 Intake & Output 10/07/18 10/08/18 10/09/18 06:59 06:59 06:59 Intake Total 2435 4140 Output Total 400 Balance 2435 3740 Weight 85.5 kg 83.5 kg General appearance: PRESENT: no acute distress, other - Sitting upright with tray at bedside GI/Abdominal exam: PRESENT: other - Abdomen is soft no peritoneal signs no rigidity. Results Laboratory Results: 10/07/18 05:21 10/08/18 04:42 10/08/18 04:42 Sodium 136.6 L Potassium 3.7 Chloride 106 Carbon Dioxide 25 Anion Gap 6 BUN 4 L Creatinine 0.54 Est GFR ( Amer) > 60 Glucose 200 H Calcium 7.6 L Phosphorus 1.4 L Total Bilirubin 0.4 AST 14 Alkaline Phosphatase 100 Total Protein 5.1 L Albumin 2.2 L Prealbumin 9.1 L 10/05/18 14:30 Stool - Stool - Final 10/05/18 14:30 Stool - Stool Stool Culture - Final NO SALMONELLA, SHIGELLA, CAMPYLOBACTER, OR E.COLI 0157 RECOVERED. NEGATIVE FOR SHIGA TOXINS 1&2. Impressions: Abdomen/Pelvis CT 10/01/18 15:53 IMPRESSION: 1. Diffuse colitis, worsened in the interval. 2. Trace pelvic ascites. 3. Fatty infiltration of the liver. 4. Atherosclerotic disease. 2.8 cm fusiform infrarenal abdominal aortic aneurysm. 5. Nonobstructing left nephrolithiasis. PICC Line Insertion 10/05/18 00:00 IMPRESSION: SUCCESSFUL PLACEMENT OF A 5 FR SINGLE LUMEN 38 CM PICC IN THE RIGHT BASILIC VEIN. Chest X-Ray 10/07/18 00:00 IMPRESSION: No acute findings in the chest. A right-sided PICC line has been added. Tip overlies the SVC. Assessment & Plan - Diagnosis (1) Colitis Is this a current diagnosis for this admission?: Yes Plan: Impression: Acute pancolitis, clinically improved with IV fluids, intravenous antibiotics Recommendations: 1. Continue to advance diet as tolerated; anticipate weaning IV narcotics; Hopefully wean TPN off in the next several days 2. No indication for surgical intervention; surgery will sign off. Please reconsult if clinically indicated. (2) Abdominal aortic aneurysm (AAA) without rupture Is this a current diagnosis for this admission?: Yes
[2018-10-08] MEDS ORDERED: OXYCODONE-ACETAMINOPHEN 5-325 MG TABLET PO PRN (10:12)
--- NOTE | 2018-10-08 10:49 | PDOC PROGRESS REPORT ---
Subjective Progress Note for:: 10/08/18 Subjective:: Patient was admitted for the pancolitis currently doing much better seen by the surgery and advance the diet Reason For Visit: ACUTE COLITIS, INFECTIOUS, MALIGANT,ISCHEMIC Physical Exam Vital Signs: Temp Pulse Resp BP Pulse Ox 98.1 F 108 H 16 94/59 L 99 10/08/18 07:30 10/08/18 07:30 10/08/18 07:30 10/08/18 07:30 10/08/18 07:30 Intake & Output 10/07/18 10/08/18 10/09/18 06:59 06:59 06:59 Intake Total 2435 4140 Output Total 400 Balance 2435 3740 Weight 85.5 kg 83.5 kg General appearance: PRESENT: no acute distress, well-developed, well-nourished Head exam: PRESENT: atraumatic, normocephalic Eye exam: PRESENT: conjunctiva pink, EOMI, PERRLA. ABSENT: scleral icterus Ear exam: PRESENT: normal external ear exam Mouth exam: PRESENT: moist, tongue midline Neck exam: PRESENT: full ROM. ABSENT: carotid bruit, JVD, lymphadenopathy, thyromegaly Respiratory exam: PRESENT: clear to auscultation mayra Cardiovascular exam: PRESENT: RRR. ABSENT: diastolic murmur, rubs, systolic murmur Pulses: PRESENT: normal dorsalis pedis pul, +2 pedal pulses bilateral Vascular exam: PRESENT: normal capillary refill GI/Abdominal exam: PRESENT: normal bowel sounds, soft. ABSENT: distended, guarding, mass, organolmegaly, rebound, tenderness Rectal exam: PRESENT: deferred Neurological exam: PRESENT: alert, awake, oriented to person, oriented to place, oriented to time, oriented to situation, CN II-XII grossly intact. ABSENT: motor sensory deficit Psychiatric exam: PRESENT: appropriate affect, normal mood. ABSENT: homicidal ideation, suicidal ideation Skin exam: PRESENT: dry, intact, warm. ABSENT: cyanosis, rash Results Laboratory Results: 10/07/18 05:21 10/08/18 04:42 10/08/18 04:42 Sodium 136.6 L Potassium 3.7 Chloride 106 Carbon Dioxide 25 Anion Gap 6 BUN 4 L Creatinine 0.54 Est GFR ( Amer) > 60 Glucose 200 H Calcium 7.6 L Phosphorus 1.4 L Total Bilirubin 0.4 AST 14 Alkaline Phosphatase 100 Total Protein 5.1 L Albumin 2.2 L Prealbumin 9.1 L 10/05/18 14:30 Stool - Stool - Final 10/05/18 14:30 Stool - Stool Stool Culture - Final NO SALMONELLA, SHIGELLA, CAMPYLOBACTER, OR E.COLI 0157 RECOVERED. NEGATIVE FOR SHIGA TOXINS 1&2. Impressions: Abdomen/Pelvis CT 10/01/18 15:53 IMPRESSION: 1. Diffuse colitis, worsened in the interval. 2. Trace pelvic ascites. 3. Fatty infiltration of the liver. 4. Atherosclerotic disease. 2.8 cm fusiform infrarenal abdominal aortic aneurysm. 5. Nonobstructing left nephrolithiasis. PICC Line Insertion 10/05/18 00:00 IMPRESSION: SUCCESSFUL PLACEMENT OF A 5 FR SINGLE LUMEN 38 CM PICC IN THE RIGHT BASILIC VEIN. Chest X-Ray 10/07/18 00:00 IMPRESSION: No acute findings in the chest. A right-sided PICC line has been added. Tip overlies the SVC. Assessment & Plan - Diagnosis (1) Colitis Is this a current diagnosis for this admission?: Yes Plan: Continues IV antibiotics PRN pain medications follow-up with the surgery (2) Abdominal aortic aneurysm (AAA) without rupture Is this a current diagnosis for this admission?: Yes (3) COPD (chronic obstructive pulmonary disease) Qualifiers: Emphysema type: unspecified Is this a current diagnosis for this admission?: Yes Plan: PRN nebulizer - Time Time Spent with patient: 15-24 minutes Medications reviewed and adjusted accordingly: Yes Anticipated discharge: Home Within: Other - Plan Summary Plan Summary: Advance the p.o. diet as tolerated per surgery Continues to IV antibiotic Continues to monitor electrolytes and CBC in the morning Physical therapy evaluations
[2018-10-08] MEDS: MESALAMINE 400 MG CAPSULE.DR PO SCH ×2 (11:27→19:47)
[2018-10-08] MEDS: NORMAL SALINE 10 ML SDV (SCHEDULED) IV SCH ×2 (11:28→22:52)
[2018-10-08] MEDS ORDERED: SODIUM PHOS,M-BASIC-D-BASIC 30 MMOL in NORMAL SALINE 250 ML IV ONE (16:00)
[2018-10-09] MEDS: INSULIN REG, HUMAN 100 UNIT/ML 3 ML VIAL (PYX) SUBCUT SCH ×2 (05:51)
[2018-10-09] MEDS: PIPERACILLIN SODIUM/TAZOBACTAM 3.375 GM in NORMAL SALINE 100 ML IV SCH ×3 (05:52→21:19)
[2018-10-09 05:55] LABS: ABSOLUTE EOSINOPHILS # (AUTO) 0.2 10^3/uL (0.0-0.6); ABSOLUTE LYMPHOCYTES (AUTO) 1.4 10^3/uL (0.5-4.7); ABSOLUTE NEUT (AUTO) 10.9 10^3/uL (1.7-8.2); BASOPHILS % (AUTO) 0.2 % (0-2); EOSINOPHILS % (AUTO) 1.3 % (0-6); HEMATOCRIT 32.8 % (36.0-47.0); HEMOGLOBIN 11.2 g/dL (12.0-15.5); LYMPHOCYTES % (AUTO) 9.9 % (13-45); MEAN CORPUSCULAR HEMOGLOBIN 31.3 pg (27.0-33.4); MEAN CORPUSCULAR HGB CONC 34.3 g/dL (32.0-36.0); MEAN CORPUSCULAR VOLUME 91 fl (80-97); MONOCYTES % (AUTO) 13.5 % (3-13); PLATELET COUNT 395 10^3/uL (150-450); RED CELL DISTRIBUTION WIDTH 14.7 % (11.5-14.0); SEGMENTED NEUTROPHILS % (AUTO) 75.1 % (42-78); TOTAL CELLS COUNTED % (AUTO) 100 %; WHITE BLOOD COUNT 14.6 10^3/uL (4.0-10.5)
[2018-10-09] MEDS: MESALAMINE 400 MG CAPSULE.DR PO SCH ×2 (09:50→17:00)
[2018-10-09] MEDS: NORMAL SALINE 10 ML SDV (SCHEDULED) IV SCH ×2 (09:51→21:20)
--- NOTE | 2018-10-09 10:48 | PDOC PROGRESS REPORT ---
Subjective Progress Note for:: 10/09/18 Subjective:: Patient is currently doing fair start eating the clear liquid diets without any issues Denied any abdominal pain Still blood in the stools As per surgery no need for any further surgical intervention at this point continues to IV antibiotic Patient already seen by the Dr. Martin No chest pain no short of breath Reason For Visit: ACUTE COLITIS, INFECTIOUS, MALIGANT,ISCHEMIC Physical Exam Vital Signs: Temp Pulse Resp BP Pulse Ox 98.3 F 114 H 20 110/71 99 10/09/18 03:20 10/09/18 07:00 10/09/18 03:20 10/09/18 03:20 10/09/18 03:20 Intake & Output 10/08/18 10/09/18 10/10/18 06:59 06:59 06:59 Intake Total 4140 860 100 Output Total 400 Balance 3740 860 100 Weight 83.5 kg 82.3 kg General appearance: PRESENT: no acute distress, well-developed, well-nourished Head exam: PRESENT: atraumatic, normocephalic Eye exam: PRESENT: conjunctiva pink, EOMI, PERRLA. ABSENT: scleral icterus Ear exam: PRESENT: normal external ear exam Mouth exam: PRESENT: moist, tongue midline Neck exam: PRESENT: full ROM. ABSENT: carotid bruit, JVD, lymphadenopathy, thyromegaly Respiratory exam: PRESENT: clear to auscultation mayra Cardiovascular exam: PRESENT: RRR. ABSENT: diastolic murmur, rubs, systolic murmur Pulses: PRESENT: normal dorsalis pedis pul, +2 pedal pulses bilateral Vascular exam: PRESENT: normal capillary refill GI/Abdominal exam: PRESENT: normal bowel sounds, soft. ABSENT: distended, guarding, mass, organolmegaly, rebound, tenderness Rectal exam: PRESENT: deferred Musculoskeletal exam: PRESENT: ambulatory Neurological exam: PRESENT: alert, awake, oriented to person, oriented to place, oriented to time, oriented to situation, CN II-XII grossly intact. ABSENT: motor sensory deficit Psychiatric exam: PRESENT: appropriate affect, normal mood. ABSENT: homicidal ideation, suicidal ideation Skin exam: PRESENT: dry, intact, warm. ABSENT: cyanosis, rash Results Laboratory Results: 10/09/18 04:10 10/08/18 04:42 10/09/18 04:10 WBC 14.6 H RBC 3.60 L Hgb 11.2 L Hct 32.8 L MCV 91 MCH 31.3 MCHC 34.3 RDW 14.7 H Plt Count 395 Seg Neutrophils % 75.1 Impressions: Abdomen/Pelvis CT 10/01/18 15:53 IMPRESSION: 1. Diffuse colitis, worsened in the interval. 2. Trace pelvic ascites. 3. Fatty infiltration of the liver. 4. Atherosclerotic disease. 2.8 cm fusiform infrarenal abdominal aortic aneurysm. 5. Nonobstructing left nephrolithiasis. PICC Line Insertion 10/05/18 00:00 IMPRESSION: SUCCESSFUL PLACEMENT OF A 5 FR SINGLE LUMEN 38 CM PICC IN THE RIGHT BASILIC VEIN. Chest X-Ray 10/07/18 00:00 IMPRESSION: No acute findings in the chest. A right-sided PICC line has been added. Tip overlies the SVC. Assessment & Plan - Diagnosis (1) Colitis Is this a current diagnosis for this admission?: Yes Plan: Continue IV antibiotic (2) Abdominal aortic aneurysm (AAA) without rupture Is this a current diagnosis for this admission?: Yes (3) COPD (chronic obstructive pulmonary disease) Qualifiers: Emphysema type: unspecified Is this a current diagnosis for this admission?: Yes Plan: PRN nebulizer - Time Time Spent with patient: 25-34 minutes Medications reviewed and adjusted accordingly: Yes Anticipated discharge: Home Within: Other - Plan Summary Plan Summary: We will repeat the CBC Chem-7 in the morning Continues to current IV antibiotic Patient was on the Flagyl in the past was discontinues We will continue to follow with the surgery and Dr. Martin
[2018-10-09 17:21] LABS: ANION GAP 6 (5-19); BLOOD UREA NITROGEN 4 mg/dL (7-20); CALCIUM 7.7 mg/dL (8.4-10.2); CARBON DIOXIDE 30 mmol/L (22-30); CHLORIDE 103 mmol/L (98-107); GLUCOSE 125 mg/dL (75-110); POTASSIUM 3.1 mmol/L (3.6-5.0)
[2018-10-09] MEDS: POTASSIUM CHLORIDE 20 MEQ/50 ML RTU IV SCH ×2 (18:32→20:08)
[2018-10-10] MEDS: PIPERACILLIN SODIUM/TAZOBACTAM 3.375 GM in NORMAL SALINE 100 ML IV SCH ×3 (05:17→21:23)
[2018-10-10 06:57] LABS: ABSOLUTE EOSINOPHILS # (AUTO) 0.2 10^3/uL (0.0-0.6); ABSOLUTE LYMPHOCYTES (AUTO) 1.6 10^3/uL (0.5-4.7); ABSOLUTE MONOCYTES (AUTO) 1.7 10^3/uL (0.1-1.4); ABSOLUTE NEUT (AUTO) 13.8 10^3/uL (1.7-8.2); BASOPHILS % (AUTO) 0.3 % (0-2); EOSINOPHILS % (AUTO) 1.2 % (0-6); HEMATOCRIT 32.5 % (36.0-47.0); HEMOGLOBIN 10.8 g/dL (12.0-15.5); LYMPHOCYTES % (AUTO) 9.5 % (13-45); MEAN CORPUSCULAR HEMOGLOBIN 30.7 pg (27.0-33.4); MEAN CORPUSCULAR HGB CONC 33.3 g/dL (32.0-36.0); MEAN CORPUSCULAR VOLUME 92 fl (80-97); MONOCYTES % (AUTO) 9.6 % (3-13); PLATELET COUNT 433 10^3/uL (150-450); RED BLOOD COUNT 3.53 10^6/uL (3.72-5.28); RED CELL DISTRIBUTION WIDTH 14.7 % (11.5-14.0); SEGMENTED NEUTROPHILS % (AUTO) 79.4 % (42-78); TOTAL CELLS COUNTED % (AUTO) 100 %; WHITE BLOOD COUNT 17.3 10^3/uL (4.0-10.5)
[2018-10-10 07:13] LABS: ANION GAP 6 (5-19); BLOOD UREA NITROGEN 4 mg/dL (7-20); CALCIUM 7.5 mg/dL (8.4-10.2); CARBON DIOXIDE 29 mmol/L (22-30); CHLORIDE 106 mmol/L (98-107); GLUCOSE 139 mg/dL (75-110); POTASSIUM 3.1 mmol/L (3.6-5.0)
[2018-10-10] MEDS: MESALAMINE 400 MG CAPSULE.DR PO SCH ×2 (10:21→18:15)
[2018-10-10] MEDS: NORMAL SALINE 10 ML SDV (SCHEDULED) IV SCH ×2 (10:23→21:27)
[2018-10-10] MEDS: POTASSI CL 20 MEQ/50 ML RIDER 20 MEQ/50 ML RTUPB IV SCH ×2 (10:25→18:50)
--- NOTE | 2018-10-10 10:47 | PDOC PROGRESS REPORT ---
Subjective Progress Note for:: 10/10/18 Subjective:: Patient is currently still doing same Still having some blood in the stools P.o. intake is very fair Denies any chest pain to than any shortness of the breath Reason For Visit: ACUTE COLITIS, INFECTIOUS, MALIGANT,ISCHEMIC Physical Exam Vital Signs: Temp Pulse Resp BP Pulse Ox 98.1 F 112 H 16 125/69 100 10/10/18 07:49 10/10/18 07:49 10/10/18 07:49 10/10/18 07:49 10/10/18 07:49 Intake & Output 10/09/18 10/10/18 10/11/18 06:59 06:59 06:59 Intake Total 860 1110 Balance 860 1110 Weight 82.3 kg 82.1 kg General appearance: PRESENT: no acute distress, well-developed, well-nourished Head exam: PRESENT: atraumatic, normocephalic Eye exam: PRESENT: conjunctiva pink, EOMI, PERRLA. ABSENT: scleral icterus Ear exam: PRESENT: normal external ear exam Mouth exam: PRESENT: moist, tongue midline Neck exam: PRESENT: full ROM. ABSENT: carotid bruit, JVD, lymphadenopathy, thyromegaly Respiratory exam: PRESENT: clear to auscultation mayra Cardiovascular exam: PRESENT: RRR. ABSENT: diastolic murmur, rubs, systolic murmur Pulses: PRESENT: normal dorsalis pedis pul, +2 pedal pulses bilateral Vascular exam: PRESENT: normal capillary refill GI/Abdominal exam: PRESENT: normal bowel sounds, soft. ABSENT: distended, guarding, mass, organolmegaly, rebound, tenderness Rectal exam: PRESENT: deferred Musculoskeletal exam: PRESENT: ambulatory Neurological exam: PRESENT: alert, awake, oriented to person, oriented to place, oriented to time, oriented to situation, CN II-XII grossly intact. ABSENT: motor sensory deficit Psychiatric exam: PRESENT: appropriate affect, normal mood. ABSENT: homicidal ideation, suicidal ideation Skin exam: PRESENT: dry, intact, warm. ABSENT: cyanosis, rash Results Laboratory Results: 10/10/18 06:20 10/10/18 06:20 10/09/18 10/10/18 10/10/18 16:48 06:20 06:20 WBC 17.3 H RBC 3.53 L Hgb 10.8 L Hct 32.5 L MCV 92 MCH 30.7 MCHC 33.3 RDW 14.7 H Plt Count 433 Seg Neutrophils % 79.4 H Sodium 139.0 140.5 Potassium 3.1 L 3.1 L Chloride 103 106 Carbon Dioxide 30 29 Anion Gap 6 6 BUN 4 L 4 L Creatinine 0.58 0.57 Est GFR ( Amer) > 60 > 60 Glucose 125 H 139 H Calcium 7.7 L 7.5 L Impressions: Abdomen/Pelvis CT 10/01/18 15:53 IMPRESSION: 1. Diffuse colitis, worsened in the interval. 2. Trace pelvic ascites. 3. Fatty infiltration of the liver. 4. Atherosclerotic disease. 2.8 cm fusiform infrarenal abdominal aortic aneurysm. 5. Nonobstructing left nephrolithiasis. PICC Line Insertion 10/05/18 00:00 IMPRESSION: SUCCESSFUL PLACEMENT OF A 5 FR SINGLE LUMEN 38 CM PICC IN THE RIGHT BASILIC VEIN. Chest X-Ray 10/07/18 00:00 IMPRESSION: No acute findings in the chest. A right-sided PICC line has been added. Tip overlies the SVC. Assessment & Plan - Diagnosis (1) Colitis Is this a current diagnosis for this admission?: Yes Plan: Patient's white count goes up to be at the Flagyl IV continues to zosyn Discussed with the surgery is going to see the patient's for further evaluations we also reconsult the GI (2) Abdominal aortic aneurysm (AAA) without rupture Is this a current diagnosis for this admission?: Yes (3) COPD (chronic obstructive pulmonary disease) Qualifiers: Emphysema type: unspecified Is this a current diagnosis for this admission?: Yes Plan: PRN nebulizer - Time Time Spent with patient: 25-34 minutes Medications reviewed and adjusted accordingly: Yes Anticipated discharge: Other Within: Other - Plan Summary Plan Summary: Discussed with the surgery again to reevaluate the patient see whether patient need another CT scan or not defer to the surgeons At the IV Flagyl with the IV other antibiotics
--- NOTE | 2018-10-10 12:18 | Progress Note ---
Provider Note Provider Note: Patient seen and evaluated Assessment: Pancolitis Cause not clear at this point, possibly ischemic Patient on full liquid diet poorly tolerated Patient on narcotics (Aristes 5/325) Current regimen of antibiotic includes Zosyn and Flagyl Patient on mesalamine started on 10/04/2018 There is no clear confirmation of the patient hematochezia as the patient flushes the stools soon after the bowel movement Her H&H is overall stable Her white blood cell count has increased to 17,000 today Abdomen is soft at this point Previous UTI Plan: Continue conservative management No plan for surgery at this time as a total colectomy is a very radical surgery in this patient with no clinical findings Stop narcotics I will stop the mesalamine as well as the patient has no diagnosis of inflammatory bowel disease (otherwise, 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
[2018-10-10] MEDS: METRONIDAZOLE 500 MG/NS RTU 500 MG/100 ML RTUPB IV SCH ×3 (17:03→23:23)
[2018-10-11] MEDS: METRONIDAZOLE 500 MG/NS RTU 500 MG/100 ML RTUPB IV SCH ×3 (05:14→17:20)
[2018-10-11] MEDS: PIPERACILLIN SODIUM/TAZOBACTAM 3.375 GM in NORMAL SALINE 100 ML IV SCH ×2 (05:16→14:58)
[2018-10-11 06:11] LABS: ABSOLUTE EOSINOPHILS # (AUTO) 0.2 10^3/uL (0.0-0.6); ABSOLUTE LYMPHOCYTES (AUTO) 1.4 10^3/uL (0.5-4.7); ABSOLUTE MONOCYTES (AUTO) 1.6 10^3/uL (0.1-1.4); ABSOLUTE NEUT (AUTO) 14.8 10^3/uL (1.7-8.2); BASOPHILS % (AUTO) 0.2 % (0-2); EOSINOPHILS % (AUTO) 0.9 % (0-6); HEMATOCRIT 32.5 % (36.0-47.0); HEMOGLOBIN 10.8 g/dL (12.0-15.5); LYMPHOCYTES % (AUTO) 7.8 % (13-45); MEAN CORPUSCULAR HEMOGLOBIN 30.6 pg (27.0-33.4); MEAN CORPUSCULAR HGB CONC 33.2 g/dL (32.0-36.0); MEAN CORPUSCULAR VOLUME 92 fl (80-97); MONOCYTES % (AUTO) 9.1 % (3-13); PLATELET COUNT 451 10^3/uL (150-450); RED BLOOD COUNT 3.53 10^6/uL (3.72-5.28); RED CELL DISTRIBUTION WIDTH 15.3 % (11.5-14.0); TOTAL CELLS COUNTED % (AUTO) 100 %
[2018-10-11 06:29] LABS: BLOOD UREA NITROGEN 5 mg/dL (7-20); CALCIUM 7.5 mg/dL (8.4-10.2); CARBON DIOXIDE 29 mmol/L (22-30); CHLORIDE 106 mmol/L (98-107); GLUCOSE 140 mg/dL (75-110); POTASSIUM 3.3 mmol/L (3.6-5.0)
[2018-10-11 06:38] LABS: ANION GAP 5 (5-19)
[2018-10-11] MEDS: NORMAL SALINE 10 ML SDV (AFTER EACH USE) IV PRN ×2 (07:01→20:10)
[2018-10-11] MEDS: MESALAMINE 400 MG CAPSULE.DR PO SCH ×2 (10:47→17:20)
[2018-10-11] MEDS: NORMAL SALINE 10 ML SDV (SCHEDULED) IV SCH ×2 (10:49→21:41)
[2018-10-11] MEDS: ONDANSETRON HCL INJ/PF 4 MG/2 ML SDV IV PRN ×2 (12:31→20:08)
--- NOTE | 2018-10-11 21:55 | PDOC PROGRESS REPORT ---
Subjective Progress Note for:: 10/11/18 Subjective:: Patient seen by the bedside she is still continues to complain of pain, The CT scan findings demonstrated nonspecific colitis similar to the previous finding with liquid stool throughout the colon Reason For Visit: ACUTE COLITIS, INFECTIOUS, MALIGANT,ISCHEMIC Physical Exam Vital Signs: Temp Pulse Resp BP Pulse Ox 98.2 F 123 H 18 112/64 98 10/11/18 20:00 10/11/18 20:00 10/11/18 20:00 10/11/18 20:00 10/11/18 20:00 Intake & Output 10/10/18 10/11/18 10/12/18 06:59 06:59 06:59 Intake Total 1210 1156 1178 Balance 1210 1156 1178 Weight 82.1 kg 81.9 kg General appearance: PRESENT: no acute distress Eye exam: PRESENT: PERRLA Respiratory exam: PRESENT: clear to auscultation mayra Cardiovascular exam: PRESENT: +S1, +S2 GI/Abdominal exam: PRESENT: distended, soft Neurological exam: PRESENT: alert, CN II-XII grossly intact Results Laboratory Results: 10/11/18 03:45 10/11/18 03:45 10/11/18 10/11/18 03:45 03:45 WBC 18.0 H RBC 3.53 L Hgb 10.8 L Hct 32.5 L MCV 92 MCH 30.6 MCHC 33.2 RDW 15.3 H Plt Count 451 H Seg Neutrophils % 82.0 H Sodium 139.7 Potassium 3.3 L Chloride 106 Carbon Dioxide 29 Anion Gap 5 BUN 5 L Creatinine 0.64 Est GFR ( Amer) > 60 Glucose 140 H Calcium 7.5 L Impressions: PICC Line Insertion 10/05/18 00:00 IMPRESSION: SUCCESSFUL PLACEMENT OF A 5 FR SINGLE LUMEN 38 CM PICC IN THE RIGHT BASILIC VEIN. Chest X-Ray 10/07/18 00:00 IMPRESSION: No acute findings in the chest. A right-sided PICC line has been added. Tip overlies the SVC. Assessment & Plan - Diagnosis (1) Colitis Is this a current diagnosis for this admission?: Yes (2) Hypokalemia Is this a current diagnosis for this admission?: Yes (3) Abdominal aortic aneurysm (AAA) without rupture Is this a current diagnosis for this admission?: Yes (4) Ischemic colitis Is this a current diagnosis for this admission?: Yes Plan: The working diagnosis is ischemic colitis CT scan of the abdomen and pelvis that was done today demonstrated diffuse nonspecific colitis similar to prior examinations, I discussed the case with his surgeon conservative approach recommended no surgical intervention recommended, Discontinue all antibiotic
--- NOTE | 2018-10-11 22:12 | RADIOLOGY REPORT (SQ) ---
EXAM DESCRIPTION: CT ABDOMEN PELVIS WITH IV CONTRAST COMPLETED DATE/TME: 10/11/2018 00:00 CLINICAL HISTORY: 73 years, Female, persistent abdominal pain ? Ischemic colitis COMPARISON: 10/01/2018 CT TECHNIQUE: 411 Images stored on PACS. All CT scanners at this facility use dose modulation, iterative reconstruction, and/or weight based dosing when appropriate to reduce radiation dose to as low as reasonably achievable (ALARA). [facility]: Dose Right [facility]: CareDose [facility]: Dose Right [facility]: Teradose 4D [facility]: [employer] LIMITATIONS: None. FINDINGS: The visualized lung bases are unremarkable. Fat-containing hernia extending into the posterior right hemithorax. Osseous structures are grossly intact. Fatty infiltrative change to the liver. The spleen, adrenal glands, pancreas, kidneys are unremarkable. The gallbladder is present. Diffuse wall thickening of the colon with liquefied stool throughout the colon. No evidence for bowel obstruction. No free air or free fluid. Similar findings were present on the prior exam. Stable atheromatous changes of the infrarenal abdominal aorta with maximal diameter 2.4 x 2.0 cm. Nonobstructing 2 mm left renal calculus incidentally noted. IMPRESSION: Diffuse nonspecific colitis, similar to the prior exam with liquefied stool/diarrhea. No free air or free fluid. TECHNICAL DOCUMENTATION: Quality ID # 436: Final reports with documentation of one or more dose reduction techniques (e.g., Automated exposure control, adjustment of the mA and/or kV according to patient size, use of iterative reconstruction technique) copyright 2011 [employer]- All Rights Reserved
[2018-10-12] MEDS: NORMAL SALINE 10 ML SDV (AFTER EACH USE) IV PRN (00:28)
[2018-10-12] MEDS: ONDANSETRON HCL INJ/PF 4 MG/2 ML SDV IV PRN (00:28)
[2018-10-12 09:12] LABS: ABSOLUTE EOSINOPHILS # (AUTO) 0.1 10^3/uL (0.0-0.6); ABSOLUTE LYMPHOCYTES (AUTO) 1.8 10^3/uL (0.5-4.7); ABSOLUTE MONOCYTES (AUTO) 1.6 10^3/uL (0.1-1.4); ABSOLUTE NEUT (AUTO) 15.1 10^3/uL (1.7-8.2); BASOPHILS % (AUTO) 0.3 % (0-2); EOSINOPHILS % (AUTO) 0.5 % (0-6); HEMATOCRIT 34.1 % (36.0-47.0); HEMOGLOBIN 11.5 g/dL (12.0-15.5); LYMPHOCYTES % (AUTO) 9.7 % (13-45); MEAN CORPUSCULAR HEMOGLOBIN 30.9 pg (27.0-33.4); MEAN CORPUSCULAR HGB CONC 33.7 g/dL (32.0-36.0); MEAN CORPUSCULAR VOLUME 92 fl (80-97); MONOCYTES % (AUTO) 8.5 % (3-13); PLATELET COUNT 491 10^3/uL (150-450); RED BLOOD COUNT 3.72 10^6/uL (3.72-5.28); RED CELL DISTRIBUTION WIDTH 15.1 % (11.5-14.0); TOTAL CELLS COUNTED % (AUTO) 100 %; WHITE BLOOD COUNT 18.7 10^3/uL (4.0-10.5)
[2018-10-12] MEDS: MESALAMINE 400 MG CAPSULE.DR PO SCH ×2 (09:26→17:20)
[2018-10-12 09:38] LABS: ANION GAP 9 (5-19); BLOOD UREA NITROGEN 6 mg/dL (7-20); CALCIUM 7.8 mg/dL (8.4-10.2); CARBON DIOXIDE 27 mmol/L (22-30); CHLORIDE 103 mmol/L (98-107); GLUCOSE 169 mg/dL (75-110)
[2018-10-12] MEDS: NORMAL SALINE 10 ML SDV (SCHEDULED) IV SCH ×2 (09:59→21:18)
[2018-10-12] MEDS: POTASSIUM CHLORIDE 20 MEQ/50 ML RTU IV SCH ×2 (11:32→13:56)
--- NOTE | 2018-10-12 14:36 | PDOC PROGRESS REPORT ---
Subjective Progress Note for:: 10/12/18 Subjective:: Patient seen by the bedside, she is alert, she has persistent leukocytosis, the CAT scan of the abdomen and pelvis with contrast that was obtained yesterday demonstrated persistent colitis no different from the prior CT scan findings. I had a long discussion with the patient regarding the plan of care, the suspicion is that she probably has ischemic colitis the surgeon recommend conservative approach. She is not showing signs of overt improvement, she continues to have hematochezia, she may need a colonoscopy with or without laparotomy. She was seen by the surgeon earlier today, she is restarted on antibiotic, she was on antibiotic since admission, this was discontinued yesterday. Reason For Visit: ACUTE COLITIS, INFECTIOUS, MALIGANT,ISCHEMIC Physical Exam Vital Signs: Temp Pulse Resp BP Pulse Ox 97.5 F 114 H 18 95/48 L 98 10/12/18 11:43 10/12/18 11:43 10/12/18 11:43 10/12/18 11:43 10/12/18 11:43 Intake & Output 10/11/18 10/12/18 10/13/18 06:59 06:59 06:59 Intake Total 1156 1578 50 Output Total 400 Balance 1156 1178 50 Weight 81.9 kg 65.3 kg General appearance: PRESENT: no acute distress Eye exam: PRESENT: PERRLA Respiratory exam: PRESENT: clear to auscultation mayra Cardiovascular exam: PRESENT: +S1, +S2 GI/Abdominal exam: PRESENT: tenderness Neurological exam: PRESENT: alert, CN II-XII grossly intact Results Laboratory Results: 10/12/18 08:57 10/12/18 08:57 10/12/18 10/12/18 10/12/18 08:57 08:57 08:57 WBC 18.7 H RBC 3.72 Hgb 11.5 L Hct 34.1 L MCV 92 MCH 30.9 MCHC 33.7 RDW 15.1 H Plt Count 491 H Seg Neutrophils % 81.0 H Sodium 139.0 Potassium 3.0 L* Chloride 103 Carbon Dioxide 27 Anion Gap 9 BUN 6 L Creatinine 0.81 Est GFR ( Amer) > 60 Glucose 169 H Lactic Acid 1.5 Calcium 7.8 L Magnesium 2.1 Impressions: PICC Line Insertion 10/05/18 00:00 IMPRESSION: SUCCESSFUL PLACEMENT OF A 5 FR SINGLE LUMEN 38 CM PICC IN THE RIGHT BASILIC VEIN. Chest X-Ray 10/07/18 00:00 IMPRESSION: No acute findings in the chest. A right-sided PICC line has been added. Tip overlies the SVC. Abdomen/Pelvis CT 10/11/18 00:00 IMPRESSION: Diffuse nonspecific colitis, similar to the prior exam with liquefied stool/diarrhea. No free air or free fluid. TECHNICAL DOCUMENTATION: Quality ID # 436: Final reports with documentation of one or more dose reduction techniques (e.g., Automated exposure control, adjustment of the mA and/or kV according to patient size, use of iterative reconstruction technique) copyright 2011 [employer]- All Rights Reserved Assessment & Plan - Diagnosis (1) Colitis Is this a current diagnosis for this admission?: Yes (2) Hypokalemia Is this a current diagnosis for this admission?: Yes Plan: Correct potassium with K riders (3) Abdominal aortic aneurysm (AAA) without rupture Is this a current diagnosis for this admission?: Yes (4) Ischemic colitis Is this a current diagnosis for this admission?: Yes
[2018-10-12] MEDS ORDERED: LEVOFLOXACIN 500 MG/D5W RTU 500 MG/100 ML RTUPB IV SCH (15:00)
[2018-10-12] MEDS: METRONIDAZOLE 500 MG/NS RTU 500 MG/100 ML RTUPB IV SCH ×2 (16:04→21:17)
[2018-10-12] MEDS: LEVOFLOXACIN 500 MG/D5W RTU 500 MG/100 ML RTUPB IV SCH (17:20)
--- NOTE | 2018-10-12 17:45 | PDOC PROGRESS REPORT ---
Subjective Progress Note for:: 10/12/18 Subjective:: This is a 73-year-old female with colitis and bloody diarrhea, presumably ischemic in nature. She complains of abdominal pain and cramping that is similar to yesterday. It is mild and colicky. She has had several bloody bowel movements today. She reports nausea and vomiting. She denies chest pain, shortness of breath, dizziness, orthostasis, fevers, chills, headache, blurry vision. Reason For Visit: ACUTE COLITIS, INFECTIOUS, MALIGANT,ISCHEMIC Physical Exam Vital Signs: Temp Pulse Resp BP Pulse Ox 97.7 F 114 H 18 89/52 L 100 10/12/18 14:27 10/12/18 14:27 10/12/18 14:27 10/12/18 14:27 10/12/18 14:27 Intake & Output 10/11/18 10/12/18 10/13/18 06:59 06:59 06:59 Intake Total 1156 1578 510 Output Total 400 Balance 1156 1178 510 Weight 81.9 kg 65.3 kg General appearance: PRESENT: no acute distress, cooperative Head exam: PRESENT: atraumatic, normocephalic Eye exam: PRESENT: EOMI, PERRLA. ABSENT: scleral icterus Mouth exam: PRESENT: moist, neck supple Neck exam: ABSENT: meningismus, tenderness, thyromegaly, tracheal deviation Respiratory exam: PRESENT: unlabored. ABSENT: tachypnea, wheezes Cardiovascular exam: PRESENT: RRR Pulses: PRESENT: normal radial pulses Vascular exam: PRESENT: normal capillary refill. ABSENT: pallor GI/Abdominal exam: PRESENT: soft, tenderness - Right lower quadrant, mild. ABSENT: distended, firm, guarding, rigid Rectal exam: PRESENT: deferred Extremities exam: ABSENT: clubbing Musculoskeletal exam: ABSENT: deformity Neurological exam: PRESENT: alert, awake, oriented to person, oriented to place, oriented to time, oriented to situation, CN II-XII grossly intact. ABSENT: motor sensory deficit Psychiatric exam: ABSENT: agitated, anxious, depressed Focused psych exam: ABSENT: delusional Skin exam: ABSENT: cyanosis, erythema, jaundice Results Laboratory Results: 10/12/18 08:57 10/12/18 08:57 10/12/18 10/12/18 10/12/18 08:57 08:57 08:57 WBC 18.7 H RBC 3.72 Hgb 11.5 L Hct 34.1 L MCV 92 MCH 30.9 MCHC 33.7 RDW 15.1 H Plt Count 491 H Seg Neutrophils % 81.0 H Sodium 139.0 Potassium 3.0 L* Chloride 103 Carbon Dioxide 27 Anion Gap 9 BUN 6 L Creatinine 0.81 Est GFR ( Amer) > 60 Glucose 169 H Lactic Acid 1.5 Calcium 7.8 L Magnesium 2.1 Impressions: PICC Line Insertion 10/05/18 00:00 IMPRESSION: SUCCESSFUL PLACEMENT OF A 5 FR SINGLE LUMEN 38 CM PICC IN THE RIGHT BASILIC VEIN. Chest X-Ray 10/07/18 00:00 IMPRESSION: No acute findings in the chest. A right-sided PICC line has been added. Tip overlies the SVC. Abdomen/Pelvis CT 10/11/18 00:00 IMPRESSION: Diffuse nonspecific colitis, similar to the prior exam with liquefied stool/diarrhea. No free air or free fluid. TECHNICAL DOCUMENTATION: Quality ID # 436: Final reports with documentation of one or more dose reduction techniques (e.g., Automated exposure control, adjustment of the mA and/or kV according to patient size, use of iterative reconstruction technique) copyright 2011 [employer]- All Rights Reserved Assessment & Plan - Diagnosis (1) Colitis Is this a current diagnosis for this admission?: Yes - Plan Summary Plan Summary: This is a 73-year-old female with colitis. Sha has persistent symptoms, despite supportive/medical therapy. The patient has continued abdominal pain and bloody diarrhea. She reports nausea with ingestion of clear liquids. I have discussed treatment options with the patient at length. At this time, I suspect an ischemic event has caused mucosal sloughing. There is no evidence of full-thickness necrosis or perforation. There is no intra- abdominal abscess. I have reviewed the patient's recent CT scan. It shows inf lammation of the right colon and transverse colon, but also extension into the descending and sigmoid colon. The patient appears somewhat frustrated with her continued abdominal pain and bloody diarrhea. Her abdominal exam is similar to when I saw her previously. At this time, the patient has several courses of action that would be reasonable. The patient may continue with supportive care, in the hopes that her symptoms improve. If she is ready to undergo surgical intervention, this would likely alleviate all of her symptoms. Unfortunately, she would likely require a total abdominal colectomy with end ileostomy (due to the uncertain nature of the cause of her colitis and also the widespread inflammation of the colon). I have also proposed that a tertiary care facility may offer her a different treatment plan. The patient wishes to think about her options and discuss them with her family. At this time I will continue with supportive care. I will restart the patient's Levaquin and Flagyl. I will continue to monitor her closely for signs of decompensation or generalized peritonitis. Surgery will continue to follow with you.
[2018-10-13] MEDS: METRONIDAZOLE 500 MG/NS RTU 500 MG/100 ML RTUPB IV SCH ×3 (05:23→22:37)
--- NOTE | 2018-10-13 09:14 | PDOC PROGRESS REPORT ---
Subjective Progress Note for:: 10/13/18 Subjective:: Patient comfortable, no nausea vomiting, tolerating clear liquid diet well, no abdominal pain reported Reason For Visit: ACUTE COLITIS, INFECTIOUS, MALIGANT,ISCHEMIC Physical Exam Vital Signs: Temp Pulse Resp BP Pulse Ox 98.2 F 108 H 20 94/60 L 99 10/12/18 23:44 10/13/18 07:00 10/13/18 03:29 10/13/18 03:29 10/13/18 03:29 Intake & Output 10/12/18 10/13/18 10/14/18 06:59 06:59 06:59 Intake Total 1578 910 100 Output Total 400 Balance 1178 910 100 Weight 65.3 kg 77.1 kg General appearance: PRESENT: no acute distress GI/Abdominal exam: PRESENT: soft, other - normal BS Results Laboratory Results: 10/12/18 08:57 10/13/18 06:50 10/12/18 10/12/18 10/12/18 08:57 08:57 08:57 WBC 18.7 H RBC 3.72 Hgb 11.5 L Hct 34.1 L MCV 92 MCH 30.9 MCHC 33.7 RDW 15.1 H Plt Count 491 H Seg Neutrophils % 81.0 H Sodium 139.0 Potassium 3.0 L* Chloride 103 Carbon Dioxide 27 Anion Gap 9 BUN 6 L Creatinine 0.81 Est GFR ( Amer) > 60 Glucose 169 H Lactic Acid 1.5 Calcium 7.8 L Magnesium 2.1 10/13/18 06:50 WBC RBC Hgb Hct MCV MCH MCHC RDW Plt Count Seg Neutrophils % Sodium Potassium 3.2 L Chloride Carbon Dioxide Anion Gap BUN Creatinine Est GFR ( Amer) Glucose Lactic Acid Calcium Magnesium Impressions: PICC Line Insertion 10/05/18 00:00 IMPRESSION: SUCCESSFUL PLACEMENT OF A 5 FR SINGLE LUMEN 38 CM PICC IN THE RIGHT BASILIC VEIN. Chest X-Ray 10/07/18 00:00 IMPRESSION: No acute findings in the chest. A right-sided PICC line has been added. Tip overlies the SVC. Abdomen/Pelvis CT 10/11/18 00:00 IMPRESSION: Diffuse nonspecific colitis, similar to the prior exam with liquefied stool/diarrhea. No free air or free fluid. TECHNICAL DOCUMENTATION: Quality ID # 436: Final reports with documentation of one or more dose reduction techniques (e.g., Automated exposure control, adjustment of the mA and/or kV according to patient size, use of iterative reconstruction technique) copyright 2011 [employer]- All Rights Reserved Assessment & Plan - Diagnosis (1) Colitis Is this a current diagnosis for this admission?: Yes - Plan Summary Plan Summary: Assessment: Colitis Patient symptoms improved Abdomen soft Clear liquid diet tolerated Only one bowel movement reported with very small amount of blood Potassium 3.2 Plan: Patient clinical picture overall improved with soft abdomen, decreased number of stools, no symptoms Plan to replace potassium and/or magnesium if needed I had a long conversation with the patient about the need to avoid any surgery if possible as a total colectomy would be unwise in her case due to the possibility of complications and to the fact that she is currently clinically improving We will check CBC tomorrow Advance diet to full liquid diet Yogurt twice a day Ensure 1 can twice a day
[2018-10-13] MEDS: NORMAL SALINE 10 ML SDV (SCHEDULED) IV SCH ×2 (10:35→22:38)
[2018-10-13] MEDS: POTASSI CL 20 MEQ/50 ML RIDER 20 MEQ/50 ML RTUPB IV SCH ×2 (10:35→15:46)
--- NOTE | 2018-10-13 14:00 | PDOC PROGRESS REPORT ---
Subjective Progress Note for:: 10/13/18 Subjective:: Patient seen by the bedside, she continues to be manage conservatively without any plan for surgical intervention. I spoke with Ahsan GómezI regarding colonoscopy for this patient, Dr Martin is contemplating colonoscopy if weather permits hopefully Wednesday or wednesday we have inclement weather presently in [facility] there is minimal staff support Reason For Visit: ACUTE COLITIS, INFECTIOUS, MALIGANT,ISCHEMIC Physical Exam Vital Signs: Temp Pulse Resp BP Pulse Ox 97.7 F 112 H 16 106/52 L 100 10/13/18 11:50 10/13/18 11:50 10/13/18 11:50 10/13/18 11:50 10/13/18 11:50 Intake & Output 10/12/18 10/13/18 10/14/18 06:59 06:59 06:59 Intake Total 1578 910 600 Output Total 400 Balance 1178 910 600 Weight 65.3 kg 77.1 kg General appearance: PRESENT: no acute distress Eye exam: PRESENT: PERRLA Respiratory exam: PRESENT: clear to auscultation mayra Cardiovascular exam: PRESENT: +S1, +S2 GI/Abdominal exam: PRESENT: soft, tenderness Neurological exam: PRESENT: alert, CN II-XII grossly intact Results Laboratory Results: 10/12/18 08:57 10/13/18 06:50 10/13/18 10/13/18 06:50 06:50 Potassium 3.2 L Magnesium 2.0 Impressions: PICC Line Insertion 10/05/18 00:00 IMPRESSION: SUCCESSFUL PLACEMENT OF A 5 FR SINGLE LUMEN 38 CM PICC IN THE RIGHT BASILIC VEIN. Chest X-Ray 10/07/18 00:00 IMPRESSION: No acute findings in the chest. A right-sided PICC line has been added. Tip overlies the SVC. Abdomen/Pelvis CT 10/11/18 00:00 IMPRESSION: Diffuse nonspecific colitis, similar to the prior exam with liquefied stool/diarrhea. No free air or free fluid. TECHNICAL DOCUMENTATION: Quality ID # [id number]: Final reports with documentation of one or more dose reduction techniques (e.g., Automated exposure control, adjustment of the mA and/or kV according to patient size, use of iterative reconstruction technique) copyright 2011 [employer]- All Rights Reserved Assessment & Plan - Diagnosis (1) Colitis Is this a current diagnosis for this admission?: Yes (2) Hypokalemia Is this a current diagnosis for this admission?: Yes Plan: Correct potassium (3) Abdominal aortic aneurysm (AAA) without rupture Is this a current diagnosis for this admission?: Yes (4) Ischemic colitis Is this a current diagnosis for this admission?: Yes
[2018-10-13 14:37] LABS: ABSOLUTE EOSINOPHILS # (AUTO) 0.1 10^3/uL (0.0-0.6); ABSOLUTE LYMPHOCYTES (AUTO) 1.5 10^3/uL (0.5-4.7); ABSOLUTE MONOCYTES (AUTO) 1.4 10^3/uL (0.1-1.4); ABSOLUTE NEUT (AUTO) 14.7 10^3/uL (1.7-8.2); BASOPHILS % (AUTO) 0.2 % (0-2); EOSINOPHILS % (AUTO) 0.5 % (0-6); HEMATOCRIT 31.9 % (36.0-47.0); HEMOGLOBIN 10.5 g/dL (12.0-15.5); LYMPHOCYTES % (AUTO) 8.4 % (13-45); MEAN CORPUSCULAR HEMOGLOBIN 30.3 pg (27.0-33.4); MEAN CORPUSCULAR VOLUME 92 fl (80-97); MONOCYTES % (AUTO) 7.9 % (3-13); PLATELET COUNT 478 10^3/uL (150-450); RED BLOOD COUNT 3.48 10^6/uL (3.72-5.28); TOTAL CELLS COUNTED % (AUTO) 100 %; WHITE BLOOD COUNT 17.7 10^3/uL (4.0-10.5)
[2018-10-13 14:53] LABS: ALBUMIN 2.1 g/dL (3.5-5.0); ALKALINE PHOSPHATASE 104 U/L (38-126); ANION GAP 7 (5-19); ASPARTATE AMINO TRANSFERASE 12 U/L (14-36); BILIRUBIN,DIRECT 0.4 mg/dL (0.0-0.4); BILIRUBIN,TOTAL 0.4 mg/dL (0.2-1.3); BLOOD UREA NITROGEN 7 mg/dL (7-20); CALCIUM 7.6 mg/dL (8.4-10.2); CARBON DIOXIDE 28 mmol/L (22-30); CHLORIDE 103 mmol/L (98-107); GLUCOSE 191 mg/dL (75-110); POTASSIUM 3.4 mmol/L (3.6-5.0)
[2018-10-13] MEDS: LEVOFLOXACIN 500 MG/D5W RTU 500 MG/100 ML RTUPB IV SCH (17:51)
[2018-10-14] MEDS: POTASSIUM CHLORIDE 20 MEQ/50 ML RTU IV SCH ×2 (02:12→02:13)
[2018-10-14] MEDS: METRONIDAZOLE 500 MG/NS RTU 500 MG/100 ML RTUPB IV SCH ×3 (05:17→20:58)
[2018-10-14 05:59] LABS: ABSOLUTE EOSINOPHILS # (AUTO) 0.1 10^3/uL (0.0-0.6); ABSOLUTE LYMPHOCYTES (AUTO) 1.6 10^3/uL (0.5-4.7); ABSOLUTE MONOCYTES (AUTO) 1.4 10^3/uL (0.1-1.4); ABSOLUTE NEUT (AUTO) 13.3 10^3/uL (1.7-8.2); BASOPHILS % (AUTO) 0.1 % (0-2); EOSINOPHILS % (AUTO) 0.5 % (0-6); HEMATOCRIT 29.5 % (36.0-47.0); LYMPHOCYTES % (AUTO) 9.5 % (13-45); MEAN CORPUSCULAR HEMOGLOBIN 31.5 pg (27.0-33.4); MEAN CORPUSCULAR HGB CONC 34.1 g/dL (32.0-36.0); MEAN CORPUSCULAR VOLUME 92 fl (80-97); MONOCYTES % (AUTO) 8.8 % (3-13); PLATELET COUNT 441 10^3/uL (150-450); RED BLOOD COUNT 3.19 10^6/uL (3.72-5.28); RED CELL DISTRIBUTION WIDTH 15.1 % (11.5-14.0); SEGMENTED NEUTROPHILS % (AUTO) 81.1 % (42-78); TOTAL CELLS COUNTED % (AUTO) 100 %; WHITE BLOOD COUNT 16.4 10^3/uL (4.0-10.5)
[2018-10-14 06:17] LABS: ANION GAP 6 (5-19); BLOOD UREA NITROGEN 6 mg/dL (7-20); CALCIUM 7.5 mg/dL (8.4-10.2); CARBON DIOXIDE 26 mmol/L (22-30); CHLORIDE 106 mmol/L (98-107); GLUCOSE 125 mg/dL (75-110); POTASSIUM 3.9 mmol/L (3.6-5.0)
[2018-10-14] MEDS: NORMAL SALINE 10 ML SDV (SCHEDULED) IV SCH ×2 (09:45→22:12)
[2018-10-14] MEDS: ONDANSETRON HCL INJ/PF 4 MG/2 ML SDV IV PRN (12:23)
--- NOTE | 2018-10-14 16:34 | PDOC PROGRESS REPORT ---
Subjective Progress Note for:: 10/14/18 Subjective:: Patient seen by the bedside, she has no appetite, she is not eating nor drinking, she has colitis of unknown etiology. Spoke to Dr. Martin about getting colonoscopy on this patient. We will start TPN in the meanwhile because of lack of nutrition. Discontinue IV antibiotic, unlikely to be infectious. Reason For Visit: ACUTE COLITIS, INFECTIOUS, MALIGANT,ISCHEMIC Physical Exam Vital Signs: Temp Pulse Resp BP Pulse Ox 98.9 F 121 H 16 115/71 94 10/14/18 15:49 10/14/18 15:49 10/14/18 15:49 10/14/18 15:49 10/14/18 15:49 Intake & Output 10/13/18 10/14/18 10/15/18 06:59 06:59 06:59 Intake Total 910 1570 250 Output Total 3 Balance 910 1567 250 Weight 77.1 kg 79.7 kg General appearance: PRESENT: no acute distress Eye exam: PRESENT: PERRLA Respiratory exam: PRESENT: clear to auscultation mayra Cardiovascular exam: PRESENT: +S1, +S2 GI/Abdominal exam: PRESENT: soft Neurological exam: PRESENT: alert Results Laboratory Results: 10/14/18 05:15 10/14/18 05:15 10/13/18 10/14/18 10/14/18 20:00 05:15 05:15 WBC 16.4 H RBC 3.19 L Hgb 10.0 L Hct 29.5 L MCV 92 MCH 31.5 MCHC 34.1 RDW 15.1 H Plt Count 441 Seg Neutrophils % 81.1 H Sodium 138.4 Potassium 3.2 L 3.9 Chloride 106 Carbon Dioxide 26 Anion Gap 6 BUN 6 L Creatinine 0.66 Est GFR ( Amer) > 60 Glucose 125 H Calcium 7.5 L Impressions: PICC Line Insertion 10/05/18 00:00 IMPRESSION: SUCCESSFUL PLACEMENT OF A 5 FR SINGLE LUMEN 38 CM PICC IN THE RIGHT BASILIC VEIN. Chest X-Ray 10/07/18 00:00 IMPRESSION: No acute findings in the chest. A right-sided PICC line has been added. Tip overlies the SVC. Abdomen/Pelvis CT 10/11/18 00:00 IMPRESSION: Diffuse nonspecific colitis, similar to the prior exam with liquefied stool/diarrhea. No free air or free fluid. TECHNICAL DOCUMENTATION: Quality ID # [id number]: Final reports with documentation of one or more dose reduction techniques (e.g., Automated exposure control, adjustment of the mA and/or kV according to patient size, use of iterative reconstruction technique) copyright 2011 [employer]- All Rights Reserved Assessment & Plan - Diagnosis (1) Colitis Is this a current diagnosis for this admission?: Yes (2) Hypokalemia Is this a current diagnosis for this admission?: Yes (3) Abdominal aortic aneurysm (AAA) without rupture Is this a current diagnosis for this admission?: Yes (4) Ischemic colitis Is this a current diagnosis for this admission?: Yes - Plan Summary Plan Summary: Start TPN
[2018-10-14] MEDS ORDERED: CIPROFLOXACIN 400 MG/D5W RTU 400 MG/200 ML RTUPB IV SCH (17:00)
[2018-10-14] MEDS ORDERED: DIPHENHYDRAMINE HCL 50 MG/ML VIAL ONE (17:23)
[2018-10-14] MEDS ORDERED: ONDANSETRON HCL INJ/PF 4 MG/2 ML SDV ONE (17:24)
[2018-10-14] MEDS ORDERED: FLUMAZENIL INJ 0.5 MG/5 ML VIAL ONE (17:24)
[2018-10-14] MEDS ORDERED: MIDAZOLAM 2 MG/2 ML INJ ONE (17:24)
[2018-10-14] MEDS ORDERED: FENTANYL CITRATE INJ/PF 100 MCG/2 ML AMPUL ONE (17:24)
[2018-10-14] MEDS ORDERED: NALOXONE HCL INJ/PF 0.4 MG/1 ML SDV ONE (17:24)
[2018-10-14] MEDS ORDERED: GLUCAGON,HUMAN RECOMB 1 MG INJ ONE (17:25)
[2018-10-14] MEDS ORDERED: EPINEPHRINE INJ 1 MG/10 ML DISP.SYRIN ONE (17:25)
--- NOTE | 2018-10-14 18:56 | PDOC PROGRESS REPORT ---
Subjective Progress Note for:: 10/13/18 Subjective:: I saw the patient on 10/04/2018 after she was admitted with abdominal pain and diarrhea. She had presented to the hospital on 09/27/2018 with abdominal pain and a CAT scan was abnormal showing thickening of the ascending colon and hepatic flexure. When she was admitted on 10/02/2018 that was more extensive thickening of her bowel. The working diagnosis was for ischemic colitis based on her medical history and her presentation. She continues to have abdominal pain and diarrhea and has not been doing well. She is tachycardic and has had low-grade fever. She was on Levaquin and Flagyl for a while but not in the last couple of days. Her stool was negative for C. difficile on 09/28/2018. She has a poor appetite. A repeat CAT scan on 10/11/2018 showed diffuse colitis Reason For Visit: ACUTE COLITIS, INFECTIOUS, MALIGANT,ISCHEMIC Physical Exam Vital Signs: Temp Pulse Resp BP Pulse Ox 98.9 F 115 H 22 H 107/67 96 10/14/18 15:49 10/14/18 18:45 10/14/18 18:45 10/14/18 18:45 10/14/18 18:45 Intake & Output 10/13/18 10/14/18 10/15/18 06:59 06:59 06:59 Intake Total 910 1570 250 Output Total 3 Balance 910 1567 250 Weight 77.1 kg 79.7 kg Exam: General: Patient is alert and looks sick HEENT: There is no pallor or jaundice. PERRLA. Oropharynx normal Respiratory: No chest deformity. No respiratory distress. Chest wall palpitation was unremarkable. Breath sounds were normal Cardiovascular: Heart sounds 1 and 2 normal with no murmurs. Abdominal: Abdomen was slightly distended with some tenderness in the right upper quadrant and left lower quadrant. There was no rebound tenderness. Rect al examination was deferred. Extremities: No edema Neurological: Alert and oriented x4. Grossly nonfocal. Normal speech Skin: No significant rash Psychological: Normal affect Results Laboratory Results: 10/14/18 05:15 10/14/18 05:15 10/13/18 10/14/18 10/14/18 20:00 05:15 05:15 WBC 16.4 H RBC 3.19 L Hgb 10.0 L Hct 29.5 L MCV 92 MCH 31.5 MCHC 34.1 RDW 15.1 H Plt Count 441 Seg Neutrophils % 81.1 H Sodium 138.4 Potassium 3.2 L 3.9 Chloride 106 Carbon Dioxide 26 Anion Gap 6 BUN 6 L Creatinine 0.66 Est GFR ( Amer) > 60 Glucose 125 H Calcium 7.5 L Impressions: PICC Line Insertion 10/05/18 00:00 IMPRESSION: SUCCESSFUL PLACEMENT OF A 5 FR SINGLE LUMEN 38 CM PICC IN THE RIGHT BASILIC VEIN. Chest X-Ray 10/07/18 00:00 IMPRESSION: No acute findings in the chest. A right-sided PICC line has been added. Tip overlies the SVC. Abdomen/Pelvis CT 10/11/18 00:00 IMPRESSION: Diffuse nonspecific colitis, similar to the prior exam with liquefied stool/diarrhea. No free air or free fluid. TECHNICAL DOCUMENTATION: Quality ID # [id number]: Final reports with documentation of one or more dose reduction techniques (e.g., Automated exposure control, adjustment of the mA and/or kV according to patient size, use of iterative reconstruction technique) copyright 2011 [employer]- All Rights Reserved Assessment & Plan - Diagnosis (1) Colitis Is this a current diagnosis for this admission?: Yes Plan: She has significant diffuse colitis as evidenced on her most recent CAT scan and has not been doing well clinically despite antibiotics. Her initial presentation was suggestive of ischemic colitis but her illness is more prolonged than usually seen with ischemic colitis. I started her on mesalamine which was discontinued after a few days. Her differential diagnoses include infectious colitis including C. difficile infection, inflammatory bowel disease though this is less likely due to the acute nature of her illness. She will undergo a flexible sigmoidoscopy with biopsy. I will suggest resumption of antibiotics and mesalamine and further management will depend on the results of the endoscopy. (2) Ischemic colitis Is this a current diagnosis for this admission?: No (3) Abnormal finding on GI tract imaging Is this a current diagnosis for this admission?: Yes (4) Abdominal aortic aneurysm (AAA) without rupture Is this a current diagnosis for this admission?: Yes
--- NOTE | 2018-10-14 19:01 | Operative Report ---
Operative Report DATE OF SURGERY: 10/14/18 Operative Report: Pre-op diagnosis: Diarrhea, abdominal pain and colitis on CAT scan Post-op diagnosis: 1. Severe rectosigmoid colitis. Surgery: Flexible sigmoidoscopy with biopsy Medications: Versed 1mg, Fentanyl 50mcg IV push Tissue removed: Sigmoid biopsy and stool sample for C. difficile and culture and sensitivity Procedure: After informed consent obtained from patient, conscious sedation was achieved. A digital rectal examination was performed and this was unremarkable. The colonoscope was inserted into the rectum and advanced to to about 25 cm. I did not advance any further due to the severity of her colitis. Since stool was aspirated and sent for testing. Biopsy was taken from the sigmoid colon. Findings There was diffuse erythema, ulceration, mucosal edema involving all of the rectum and the sigmoid colon up to the extent of my examination. There was some exudates and possible pseudomembranes. Plan: Await pathology and stool results. Start patient on p.o. vancomycin and continue IV Flagyl. OPERATION: Flexible sigmoidoscopy with biopsy
[2018-10-14] MEDS: VANCOMYCIN HCL INJ 500 MG VIAL PO SCH (20:59)
[2018-10-14] MEDS: NORMAL SALINE 10 ML SDV (AFTER EACH USE) IV PRN (21:01)
[2018-10-14] MEDS: MESALAMINE 400 MG CAPSULE.DR PO SCH (21:01)
--- NOTE | 2018-10-14 23:24 | PDOC PROGRESS REPORT ---
Subjective Progress Note for:: 10/14/18 Subjective:: Patient feels comfortable after the colonoscopy today Reason For Visit: ACUTE COLITIS, INFECTIOUS, MALIGANT,ISCHEMIC Physical Exam Vital Signs: Temp Pulse Resp BP Pulse Ox 98.9 F 119 H 21 H 141/60 H 92 10/14/18 15:49 10/14/18 19:00 10/14/18 19:00 10/14/18 19:00 10/14/18 19:00 Intake & Output 10/13/18 10/14/18 10/15/18 06:59 06:59 06:59 Intake Total 910 1570 740 Output Total 3 Balance 910 1567 740 Weight 77.1 kg 79.7 kg General appearance: PRESENT: no acute distress Neck exam: PRESENT: full ROM Respiratory exam: PRESENT: clear to auscultation mayra Cardiovascular exam: PRESENT: RRR GI/Abdominal exam: PRESENT: soft, other - no tenderness Results Laboratory Results: 10/14/18 05:15 10/14/18 05:15 10/14/18 10/14/18 10/14/18 05:15 05:15 18:30 WBC 16.4 H RBC 3.19 L Hgb 10.0 L Hct 29.5 L MCV 92 MCH 31.5 MCHC 34.1 RDW 15.1 H Plt Count 441 Seg Neutrophils % 81.1 H Sodium 138.4 Potassium 3.9 Chloride 106 Carbon Dioxide 26 Anion Gap 6 BUN 6 L Creatinine 0.66 Est GFR ( Amer) > 60 Glucose 125 H Calcium 7.5 L Stool for White Cells MANY H Impressions: PICC Line Insertion 10/05/18 00:00 IMPRESSION: SUCCESSFUL PLACEMENT OF A 5 FR SINGLE LUMEN 38 CM PICC IN THE RIGHT BASILIC VEIN. Chest X-Ray 10/07/18 00:00 IMPRESSION: No acute findings in the chest. A right-sided PICC line has been added. Tip overlies the SVC. Abdomen/Pelvis CT 10/11/18 00:00 IMPRESSION: Diffuse nonspecific colitis, similar to the prior exam with liquefied stool/diarrhea. No free air or free fluid. TECHNICAL DOCUMENTATION: Quality ID # 436: Final reports with documentation of one or more dose reduction techniques (e.g., Automated exposure control, adjustment of the mA and/or kV according to patient size, use of iterative reconstruction technique) copyright 2011 [employer]- All Rights Reserved Assessment & Plan - Diagnosis (1) Colitis Is this a current diagnosis for this admission?: Yes - Plan Summary Plan Summary: Assessment: Diffuse colitis on CAT scan in October 11, 2018 Cell count is still elevated (16.4 )with stable H&H No abdominal pain Management colonoscopy done today up to 25 cm with evidence of colitis and pseudomembranes as per C. difficile colitis However, C. difficile toxin analysis in the stool done today is negative Plan: As per GI, patient is on oral vancomycin and IV Flagyl for possible pseudomembranous colitis Clear liquid diet tolerated Colonic mucosa biopsies pending No general surgery issues identified at this point, and no procedure planned at this point We will continue to follow the patient daily
[2018-10-15] MEDS: VANCOMYCIN HCL INJ 500 MG VIAL PO SCH ×4 (00:26→17:42)
[2018-10-15] MEDS: METRONIDAZOLE 500 MG/NS RTU 500 MG/100 ML RTUPB IV SCH ×4 (02:26→22:09)
[2018-10-15] MEDS ORDERED: DEXTROSE 40% GEL 15 GM TUBE PO PRN (09:00)
[2018-10-15] MEDS ORDERED: GLUCAGON,HUMAN RECOMB 1 MG INJ IM PRN (09:00)
[2018-10-15] MEDS ORDERED: DEXTROSE 50%-WATER SYRINGE 12.5 GM/25 ML DOSE IV PRN (09:00)
[2018-10-15] MEDS ORDERED: DEXTROSE 50%-WATER SYRINGE 25 GM/50 ML DOSE IV PRN (09:00)
[2018-10-15] MEDS ORDERED: DEXTROSE 10%-WATER 1,000 ML IV PRN (09:00)
[2018-10-15] MEDS ORDERED: DEXTROSE 40% GEL 15 GM TUBE X 2 PO PRN (09:00)
[2018-10-15 09:03] LABS: HEMATOCRIT 31.9 % (36.0-47.0); HEMOGLOBIN 10.7 g/dL (12.0-15.5); MEAN CORPUSCULAR HEMOGLOBIN 30.8 pg (27.0-33.4); MEAN CORPUSCULAR HGB CONC 33.5 g/dL (32.0-36.0); MEAN CORPUSCULAR VOLUME 92 fl (80-97); PLATELET COUNT 399 10^3/uL (150-450); RED BLOOD COUNT 3.47 10^6/uL (3.72-5.28); RED CELL DISTRIBUTION WIDTH 15.2 % (11.5-14.0); WHITE BLOOD COUNT 14.5 10^3/uL (4.0-10.5)
[2018-10-15 09:17] LABS: ALKALINE PHOSPHATASE 84 U/L (38-126); ANION GAP 7 (5-19); ASPARTATE AMINO TRANSFERASE 12 U/L (14-36); BLOOD UREA NITROGEN 6 mg/dL (7-20); CALCIUM 7.2 mg/dL (8.4-10.2); CARBON DIOXIDE 26 mmol/L (22-30); CHLORIDE 104 mmol/L (98-107); GLUCOSE 149 mg/dL (75-110); PHOSPHORUS 2.9 mg/dL (2.5-4.5); POTASSIUM 3.4 mmol/L (3.6-5.0); TOTAL PROTEIN 4.7 g/dL (6.3-8.2)
[2018-10-15 09:22] LABS: PROTHROMBIN TIME 17.3 SEC (11.4-15.4)
[2018-10-15 09:33] LABS: BILIRUBIN,TOTAL 0.3 mg/dL (0.2-1.3)
[2018-10-15 09:38] LABS: BILIRUBIN,DIRECT 0.2 mg/dL (0.0-0.4)
--- NOTE | 2018-10-15 09:45 | PDOC PROGRESS REPORT ---
Subjective Subjective:: This is a 73-year-old female with colitis and bloody diarrhea. She complains of abdominal pain and cramping that is similar to yesterday. It is mild and colicky. She denies any hematochezia today, although she does report loose stools. She denies nausea, vomiting, chest pain, shortness of breath, dizziness, orthostasis, fevers, chills, headache, blurry vision. Reason For Visit: ACUTE COLITIS, INFECTIOUS, MALIGANT,ISCHEMIC Physical Exam Vital Signs: Temp Pulse Resp BP Pulse Ox 98.7 F 123 H 20 122/75 93 10/15/18 01:11 10/15/18 07:00 10/15/18 01:11 10/15/18 01:11 10/15/18 01:11 Intake & Output 10/14/18 10/15/18 10/16/18 06:59 06:59 06:59 Intake Total 1570 1340 Output Total 3 151 Balance 1567 1189 Weight 79.7 kg 78.5 kg General appearance: PRESENT: no acute distress, cooperative, obese Head exam: PRESENT: atraumatic, normocephalic Eye exam: PRESENT: EOMI, PERRLA. ABSENT: scleral icterus Mouth exam: PRESENT: neck supple Neck exam: ABSENT: meningismus, tenderness, thyromegaly, tracheal deviation Respiratory exam: PRESENT: clear to auscultation mayra, unlabored. ABSENT: chest wall tenderness, tachypnea, wheezes Cardiovascular exam: PRESENT: RRR Pulses: PRESENT: normal radial pulses Vascular exam: PRESENT: normal capillary refill. ABSENT: pallor GI/Abdominal exam: PRESENT: soft, tenderness - minimal lower abdominal. ABSENT: distended Rectal exam: PRESENT: deferred Extremities exam: ABSENT: clubbing Musculoskeletal exam: ABSENT: deformity Neurological exam: PRESENT: alert, awake, oriented to person, oriented to place, oriented to time, oriented to situation Psychiatric exam: ABSENT: agitated, anxious, depressed Focused psych exam: ABSENT: delusional Skin exam: ABSENT: cyanosis, erythema, jaundice Results Laboratory Results: 10/15/18 08:50 10/15/18 08:50 10/14/18 10/15/18 10/15/18 18:30 08:50 08:50 WBC 14.5 H RBC 3.47 L Hgb 10.7 L Hct 31.9 L MCV 92 MCH 30.8 MCHC 33.5 RDW 15.2 H Plt Count 399 Sodium 136.8 L Potassium 3.4 L Chloride 104 Carbon Dioxide 26 Anion Gap 7 BUN 6 L Creatinine 0.72 Est GFR ( Amer) > 60 Glucose 149 H Calcium 7.2 L Phosphorus 2.9 Magnesium 1.9 Total Bilirubin 0.3 AST 12 L Alkaline Phosphatase 84 Total Protein 4.7 L Albumin 2.0 L Prealbumin 7.0 L Stool for White Cells MANY H Impressions: PICC Line Insertion 10/05/18 00:00 IMPRESSION: SUCCESSFUL PLACEMENT OF A 5 FR SINGLE LUMEN 38 CM PICC IN THE RIGHT BASILIC VEIN. Chest X-Ray 10/07/18 00:00 IMPRESSION: No acute findings in the chest. A right-sided PICC line has been a dded. Tip overlies the SVC. Abdomen/Pelvis CT 10/11/18 00:00 IMPRESSION: Diffuse nonspecific colitis, similar to the prior exam with liquefied stool/diarrhea. No free air or free fluid. TECHNICAL DOCUMENTATION: Quality ID # 436: Final reports with documentation of one or more dose reduction techniques (e.g., Automated exposure control, adjustment of the mA and/or kV according to patient size, use of iterative reconstruction technique) copyright 2011 [employer]- All Rights Reserved Assessment & Plan - Diagnosis (1) Colitis Is this a current diagnosis for this admission?: Yes - Plan Summary Plan Summary: 73-year-old female with colitis. GI is following. The patient is status post colonoscopy. The patient had inflammatory changes with possible pseudomembranes present. Ischemic versus autoimmune colitis still in the differential. Will defer treatment to gastroenterology at this time. Will follow, in case surgical intervention is necessary.
[2018-10-15] MEDS: MESALAMINE 400 MG CAPSULE.DR PO SCH ×3 (10:17→17:40)
[2018-10-15] MEDS: NORMAL SALINE 10 ML SDV (SCHEDULED) IV SCH ×2 (10:22→21:22)
--- NOTE | 2018-10-15 11:56 | PDOC PROGRESS REPORT ---
Subjective Progress Note for:: 10/15/18 Subjective:: Patient continue to express right sided lower abdominal pain. There is reported nausea, episodes of vomiting and poor p.o intake due to her symptoms. No chest pain or difficulty with breathing. No fever or chills. Remain on oral Vancomycin and IV Flagyl. Reason For Visit: ACUTE COLITIS, INFECTIOUS, MALIGANT,ISCHEMIC Physical Exam Vital Signs: Temp Pulse Resp BP Pulse Ox 98.4 F 121 H 16 120/67 95 10/15/18 07:29 10/15/18 07:29 10/15/18 07:29 10/15/18 07:29 10/15/18 07:29 Intake & Output 10/14/18 10/15/18 10/16/18 06:59 06:59 06:59 Intake Total 1570 1340 Output Total 3 151 Balance 1567 1189 Weight 79.7 kg 78.5 kg General appearance: PRESENT: mild distress - due to abdominal pain, obese Head exam: PRESENT: atraumatic, normocephalic Eye exam: PRESENT: conjunctiva pink. ABSENT: scleral icterus Ear exam: PRESENT: normal external ear exam Mouth exam: PRESENT: moist Respiratory exam: PRESENT: clear to auscultation mayar Cardiovascular exam: PRESENT: RRR, +S1, +S2. ABSENT: diastolic murmur, rubs, systolic murmur Vascular exam: ABSENT: pallor GI/Abdominal exam: PRESENT: normal bowel sounds, soft, tenderness - RLQ to palpation. ABSENT: distended, guarding, mass, organolmegaly, rebound Rectal exam: PRESENT: deferred Extremities exam: ABSENT: pedal edema Musculoskeletal exam: PRESENT: normal inspection Neurological exam: PRESENT: alert, awake, oriented to person, oriented to place, oriented to time, oriented to situation, CN II-XII grossly intact. ABSENT: motor sensory deficit Psychiatric exam: PRESENT: appropriate affect, normal mood. ABSENT: homicidal ideation, suicidal ideation Skin exam: PRESENT: dry, warm Results Laboratory Results: 10/15/18 08:50 10/15/18 08:50 10/14/18 10/15/18 10/15/18 18:30 08:50 08:50 WBC 14.5 H RBC 3.47 L Hgb 10.7 L Hct 31.9 L MCV 92 MCH 30.8 MCHC 33.5 RDW 15.2 H Plt Count 399 Sodium 136.8 L Potassium 3.4 L Chloride 104 Carbon Dioxide 26 Anion Gap 7 BUN 6 L Creatinine 0.72 Est GFR ( Amer) > 60 Glucose 149 H Calcium 7.2 L Phosphorus 2.9 Magnesium 1.9 Total Bilirubin 0.3 AST 12 L Alkaline Phosphatase 84 Total Protein 4.7 L Albumin 2.0 L Prealbumin 7.0 L Stool for White Cells MANY H Impressions: PICC Line Insertion 10/05/18 00:00 IMPRESSION: SUCCESSFUL PLACEMENT OF A 5 FR SINGLE LUMEN 38 CM PICC IN THE RIGHT BASILIC VEIN. Chest X-Ray 10/07/18 00:00 IMPRESSION: No acute findings in the chest. A right-sided PICC line has been added. Tip overlies the SVC. Abdomen/Pelvis CT 10/11/18 00:00 IMPRESSION: Diffuse nonspecific colitis, similar to the prior exam with liquefied stool/diarrhea. No free air or free fluid. TECHNICAL DOCUMENTATION: Quality ID # 436: Final reports with documentation of one or more dose reduction techniques (e.g., Automated exposure control, adjustment of the mA and/or kV according to patient size, use of iterative reconstruction technique) copyright 2011 [employer]- All Rights Reserved Assessment & Plan - Diagnosis (1) Abdominal pain Qualifiers: Abdominal location: right lower quadrant Qualified Code(s): R10.31 - Right lower quadrant pain Is this a current diagnosis for this admission?: Yes Plan: Continue current management as possible ischemic versus infectious colitis. Start on IV Morphine 2 mg q 4 hours prn for pain management. (2) Colitis Is this a current diagnosis for this admission?: Yes Plan: Likely ischemic in view of evaluation so far. Continue on antibiotic coverage and monitor leukocytosis trend. Obtain CBC with diff in AM. (3) Ischemic colitis Is this a current diagnosis for this admission?: Yes Plan: Maintain on current medication management. Surgical evaluation and contribution noted. (4) Intractable nausea and vomiting Qualifiers: Vomiting type: unspecified Qualified Code(s): R11.2 - Nausea with vomiting, unspecified Is this a current diagnosis for this admission?: Yes Plan: Start on IV Zofran 4 mg q 4 hours prn for nausea and vomiting management. (5) Hypokalemia Is this a current diagnosis for this admission?: Yes Plan: Patient will receive potassium replacement. Obtain Mag level and repeat BMP in AM. - Time Time Spent with patient: 25-34 minutes Medications reviewed and adjusted accordingly: Yes Anticipated discharge: Home with Homehealth Within: Other - Inpatient Certification Based on my medical assessment, after consideration of the patient's comorbidities, presenting symptoms, or acuity I expect that the services needed warrant INPATIENT care.: Yes I certify that my determination is in accordance with my understanding of Medicare's requirements for reasonable and necessary INPATIENT services [42 CFR 412.3e].: Yes Medical Necessity: Significant Comorbidiites Make Outpatient Treatment Too Risky, Need Close Monitoring Due to Risk of Patient Decompensation, Need For IV Fluids, Need For Continuous Telemetry Monitoring, Need for IV Antibiotics, Risk of Complication if Not Cared For in Hospital, Risk of Diagnosis Which Will Require Inpatient Eval/Care/Monitoring Post Hospital Care: D/C Food Critic Documentation - Plan Summary Plan Summary: Continue with current medication management. Start on IV Morphine 2 mg q 4 hours prn for pain management. Start on Probiotic therapy.
[2018-10-15] MEDS: POTASSI CL 20 MEQ/50 ML RIDER 20 MEQ/50 ML RTUPB IV SCH ×3 (13:43→20:16)
[2018-10-15] MEDS ORDERED: MORPHINE SULFATE 10 MG/ML INJ ONE (14:21)
[2018-10-15] MEDS: INSULIN REG, HUMAN 100 UNIT/ML 3 ML VIAL (PYX) SUBCUT SCH ×2 (14:25→18:58)
[2018-10-15] MEDS ORDERED: MORPHINE SULFATE 10 MG/ML INJ IV PRN (14:33)
[2018-10-15] MEDS: LACTOBACILLUS ACIDOPHILUS 250 MG TAB PO SCH ×2 (14:59→17:40)
[2018-10-15] MEDS: AMINO ACIDS 5 %/DEXTROSE 20 % 1,000 ML IV PRN (17:28)
[2018-10-16] MEDS: INSULIN REG, HUMAN 100 UNIT/ML 3 ML VIAL (PYX) SUBCUT SCH ×4 (00:23→18:01)
[2018-10-16] MEDS: VANCOMYCIN HCL INJ 500 MG VIAL PO SCH ×4 (01:07→18:18)
[2018-10-16] MEDS: METRONIDAZOLE 500 MG/NS RTU 500 MG/100 ML RTUPB IV SCH ×4 (04:19→20:00)
[2018-10-16 07:46] LABS: ALKALINE PHOSPHATASE 78 U/L (38-126); ANION GAP 6 (5-19); ASPARTATE AMINO TRANSFERASE 10 U/L (14-36); BILIRUBIN,DIRECT 0.3 mg/dL (0.0-0.4); BILIRUBIN,TOTAL 0.3 mg/dL (0.2-1.3); BLOOD UREA NITROGEN 7 mg/dL (7-20); CALCIUM 7.3 mg/dL (8.4-10.2); CARBON DIOXIDE 27 mmol/L (22-30); CHLORIDE 104 mmol/L (98-107); GLUCOSE 193 mg/dL (75-110); PHOSPHORUS 1.9 mg/dL (2.5-4.5); TOTAL PROTEIN 4.7 g/dL (6.3-8.2)
[2018-10-16 07:53] LABS: PREALBUMIN 6.7 mg/dL (17.6-36.0)
--- NOTE | 2018-10-16 10:17 | PDOC PROGRESS REPORT ---
Subjective Progress Note for:: 10/16/18 Subjective:: The patient reports somewhat improvement of her abdominal symptoms; she had a 3 stools with blood clots during the past 24 hours, she still reports nausea and she is unable to take almost any oral food or liquids Reason For Visit: ACUTE COLITIS, INFECTIOUS, MALIGANT,ISCHEMIC Physical Exam Vital Signs: Temp Pulse Resp BP Pulse Ox 99.4 F 116 H 16 92/49 L 95 10/16/18 08:15 10/16/18 08:15 10/16/18 08:15 10/16/18 08:15 10/16/18 08:15 Intake & Output 10/15/18 10/16/18 10/17/18 06:59 06:59 06:59 Intake Total 1340 610 Output Total 151 600 Balance 1189 10 Weight 78.5 kg 78.4 kg General appearance: PRESENT: no acute distress Respiratory exam: PRESENT: chest wall tenderness Cardiovascular exam: PRESENT: RRR GI/Abdominal exam: PRESENT: soft, tenderness - Slightly tender in the right upper quadrant and mid upper abdomen Results Laboratory Results: 10/15/18 08:50 10/16/18 06:57 10/16/18 06:57 Sodium 137.4 Potassium 3.0 L* Chloride 104 Carbon Dioxide 27 Anion Gap 6 BUN 7 Creatinine 0.67 Est GFR ( Amer) > 60 Glucose 193 H Calcium 7.3 L Phosphorus 1.9 L Total Bilirubin 0.3 AST 10 L Alkaline Phosphatase 78 Total Protein 4.7 L Albumin 2.0 L Prealbumin 6.7 L Impressions: PICC Line Insertion 10/05/18 00:00 IMPRESSION: SUCCESSFUL PLACEMENT OF A 5 FR SINGLE LUMEN 38 CM PICC IN THE RIGHT BASILIC VEIN. Chest X-Ray 10/07/18 00:00 IMPRESSION: No acute findings in the chest. A right-sided PICC line has been added. Tip overlies the SVC. Abdomen/Pelvis CT 10/11/18 00:00 IMPRESSION: Diffuse nonspecific colitis, similar to the prior exam with liquefied stool/diarrhea. No free air or free fluid. TECHNICAL DOCUMENTATION: Quality ID # [id number]: Final reports with documentation of one or more dose reduction techniques (e.g., Automated exposure control, adjustment of the mA and/or kV according to patient size, use of iterative reconstruction technique) copyright 2011 [employer]- All Rights Reserved Assessment & Plan - Diagnosis (1) Colitis Is this a current diagnosis for this admission?: Yes - Plan Summary Plan Summary: Assessment: 73-year-old female admitted on October 01 for abdominal pain nausea, diarrhea So far, her gastrointestinal work-up is significant for pseudomembranous colitis as per recent flexible endoscopy done on October [address] Martin However, her stool cultures as well as Shigella toxin and C. difficile toxin are all negative from October 14, 2009 sigmoidoscopy Currently, the patient is on IV Flagyl and oral vancomycin Rectosigmoid biopsies from October 11, 2018 sigmoidoscopy I currently pending Recent CT scan abdomen pelvis done on October 12, reveals only diffuse colitis I had a long conversation with Dr. 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 Therefore, he is hesitant to start the patient on oral or IV steroids. : Plan: As per my conversation with Dr. Martin, patient will be started back on Cipro 400 mg IV every 12 Continue IV Flagyl Continue oral vancomycin Continue aggressive replacement of potassium intravenously Will be waiting for sigmoid biopsy results, most likely available sometimes next week Currently, there is no plan for surgical intervention based on the above; however, we will be available for surgical intervention if necessary or if the patient conditions deteriorate.
[2018-10-16] MEDS: LACTOBACILLUS ACIDOPHILUS 250 MG TAB PO SCH ×2 (10:19→17:59)
[2018-10-16] MEDS: MESALAMINE 400 MG CAPSULE.DR PO SCH ×3 (10:20→17:59)
[2018-10-16] MEDS ORDERED: NORMAL SALINE 1000 ML 1,000 ML IV ONE (10:25)
[2018-10-16] MEDS: POTASSIUM CHLORIDE 20 MEQ/50 ML RTU IV SCH ×2 (10:31→14:05)
[2018-10-16] MEDS: NORMAL SALINE 10 ML SDV (SCHEDULED) IV SCH ×2 (10:32→21:48)
[2018-10-16] MEDS: HYDROCORTISONE SOD SUCCINATE INJ/PF 100 MG/2 ML SDV IV SCH ×2 (11:36→18:18)
[2018-10-16] MEDS ORDERED: CIPROFLOXACIN 400 MG/D5W RTU 400 MG/200 ML RTUPB IV ONE (13:41)
[2018-10-16] MEDS: CIPROFLOXACIN 400 MG/D5W RTU 400 MG/200 ML RTUPB IV SCH ×2 (15:00→22:17)
--- NOTE | 2018-10-16 16:51 | PDOC PROGRESS REPORT ---
Subjective Progress Note for:: 10/16/18 Subjective:: Patient continue to experience diarrhea and lower abdominal pain. There is nausea but no vomiting. No fever or chills. No chest pain or difficulty with breathing. Reason For Visit: ACUTE COLITIS, INFECTIOUS, MALIGANT,ISCHEMIC Physical Exam Vital Signs: Temp Pulse Resp BP Pulse Ox 99.4 F 116 H 16 92/49 L 95 10/16/18 08:15 10/16/18 08:15 10/16/18 08:15 10/16/18 08:15 10/16/18 08:15 Intake & Output 10/15/18 10/16/18 10/17/18 06:59 06:59 06:59 Intake Total 1340 610 150 Output Total 151 600 Balance 1189 10 150 Weight 78.5 kg 78.4 kg Physical Exam: General appearance: PRESENT: mild distress - due to abdominal pain, obese Head exam: PRESENT: atraumatic, normocephalic Eye exam: PRESENT: conjunctiva pink. ABSENT: pallor, scleral icterus Ear exam: PRESENT: normal external ear exam Mouth exam: PRESENT: moist Respiratory exam: PRESENT: clear to auscultation mayra Cardiovascular exam: PRESENT: RRR, +S1, +S2. ABSENT: diastolic murmur, rubs, systolic murmur GI/Abdominal exam: PRESENT: normal bowel sounds, soft, tenderness - RLQ to palpation. ABSENT: distended, guarding, mass, organomegaly, rebound Extremities exam: ABSENT: pedal edema Musculoskeletal exam: PRESENT: normal inspection Neurological exam: PRESENT: alert, awake, oriented to person, oriented to place, oriented to time, oriented to situation, CN II-XII grossly intact. ABSENT: motor sensory deficit Psychiatric exam: PRESENT: appropriate affect, normal mood. ABSENT: homicidal ideation, suicidal ideation Skin exam: PRESENT: dry, warm Results Laboratory Results: 10/15/18 08:50 10/16/18 06:57 10/16/18 06:57 Sodium 137.4 Potassium 3.0 L* Chloride 104 Carbon Dioxide 27 Anion Gap 6 BUN 7 Creatinine 0.67 Est GFR ( Amer) > 60 Glucose 193 H Calcium 7.3 L Phosphorus 1.9 L Total Bilirubin 0.3 AST 10 L Alkaline Phosphatase 78 Total Protein 4.7 L Albumin 2.0 L Prealbumin 6.7 L Impressions: PICC Line Insertion 10/05/18 00:00 IMPRESSION: SUCCESSFUL PLACEMENT OF A 5 FR SINGLE LUMEN 38 CM PICC IN THE RIGHT BASILIC VEIN. Chest X-Ray 10/07/18 00:00 IMPRESSION: No acute findings in the chest. A right-sided PICC line has been added. Tip overlies the SVC. Abdomen/Pelvis CT 10/11/18 00:00 IMPRESSION: Diffuse nonspecific colitis, similar to the prior exam with liquefied stool/diarrhea. No free air or free fluid. TECHNICAL DOCUMENTATION: Quality ID # [id number]: Final reports with documentation of one or more dose reduction techniques (e.g., Automated exposure control, adjustment of the mA and/or kV according to patient size, use of iterative reconstruction technique) copyright 2011 [employer]- All Rights Reserved Assessment & Plan - Diagnosis (1) Abdominal pain Qualifiers: Abdominal location: right lower quadrant Qualified Code(s): R10.31 - Right lower quadrant pain Is this a current diagnosis for this admission?: Yes (2) Colitis Is this a current diagnosis for this admission?: Yes Plan: I discussed case with Dr. Martin regarding possible ulcerative colitis as underlying issue in this patient although she has not demonstrated similar symptoms in the past. She might have had subclinical symptoms or missed diagnosed less intense episodes in the past. It is agreed upon to start on hydrocortisone therapy with antibiotic coverage for any underlying infectious process. Surgical team input appreciated. (3) Ischemic colitis Is this a current diagnosis for this admission?: Yes (4) Intractable nausea and vomiting Qualifiers: Vomiting type: unspecified Qualified Code(s): R11.2 - Nausea with vomiting, unspecified Is this a current diagnosis for this admission?: Yes (5) Hypokalemia Is this a current diagnosis for this admission?: Yes - Time Time Spent with patient: 25-34 minutes Medications reviewed and adjusted accordingly: Yes Anticipated discharge: Home with Homehealth Within: Other - Inpatient Certification Based on my medical assessment, after consideration of the patient's comorbidities, presenting symptoms, or acuity I expect that the services needed warrant INPATIENT care.: Yes I certify that my determination is in accordance with my understanding of Medicare's requirements for reasonable and necessary INPATIENT services [42 CFR 412.3e].: Yes Medical Necessity: Significant Comorbidiites Make Outpatient Treatment Too Risky, Need Close Monitoring Due to Risk of Patient Decompensation, Need For IV Fluids, Need For Continuous Telemetry Monitoring, Need for IV Antibiotics, Risk of Complication if Not Cared For in Hospital, Risk of Diagnosis Which Will Require Inpatient Eval/Care/Monitoring Post Hospital Care: D/C Clerk General Documentation - Plan Summary Plan Summary: Continue current medical management. She is currently on TPN support and will receive potassium replacement. Obtain CBC with diff and CMP in AM.
[2018-10-16] MEDS: AMINO ACIDS 5 %/DEXTROSE 20 % 1,000 ML IV PRN (19:56)
[2018-10-16] MEDS: NORMAL SALINE 1000 ML 1,000 ML IV PRN (20:03)
[2018-10-17] MEDS: VANCOMYCIN HCL INJ 500 MG VIAL PO SCH ×4 (00:09→17:39)
[2018-10-17] MEDS: INSULIN REG, HUMAN 100 UNIT/ML 3 ML VIAL (PYX) SUBCUT SCH ×4 (00:17→17:29)
[2018-10-17] MEDS: HYDROCORTISONE SOD SUCCINATE INJ/PF 100 MG/2 ML SDV IV SCH ×3 (02:24→17:39)
[2018-10-17] MEDS: METRONIDAZOLE 500 MG/NS RTU 500 MG/100 ML RTUPB IV SCH ×4 (02:24→20:35)
[2018-10-17] MEDS: CIPROFLOXACIN 400 MG/D5W RTU 400 MG/200 ML RTUPB IV SCH ×2 (09:51→22:07)
[2018-10-17] MEDS: NORMAL SALINE 10 ML SDV (SCHEDULED) IV SCH ×2 (09:57→22:08)
[2018-10-17] MEDS ORDERED: FAT EMULSIONS 250 ML IV SCH (10:00)
[2018-10-17] MEDS: LACTOBACILLUS ACIDOPHILUS 250 MG TAB PO SCH ×2 (10:01→17:27)
[2018-10-17] MEDS: MESALAMINE 400 MG CAPSULE.DR PO SCH ×3 (10:01→17:27)
[2018-10-17 10:38] LABS: HEMATOCRIT 29.2 % (36.0-47.0); HEMOGLOBIN 9.7 g/dL (12.0-15.5); MEAN CORPUSCULAR HEMOGLOBIN 30.6 pg (27.0-33.4); MEAN CORPUSCULAR HGB CONC 33.1 g/dL (32.0-36.0); MEAN CORPUSCULAR VOLUME 92 fl (80-97); PLATELET COUNT 271 10^3/uL (150-450); RED BLOOD COUNT 3.15 10^6/uL (3.72-5.28); RED CELL DISTRIBUTION WIDTH 15.3 % (11.5-14.0)
[2018-10-17 11:06] LABS: ALKALINE PHOSPHATASE 78 U/L (38-126); ANION GAP 6 (5-19); ASPARTATE AMINO TRANSFERASE 10 U/L (14-36); BILIRUBIN,DIRECT 0.2 mg/dL (0.0-0.4); BILIRUBIN,TOTAL 0.2 mg/dL (0.2-1.3); BLOOD UREA NITROGEN 6 mg/dL (7-20); CALCIUM 7.1 mg/dL (8.4-10.2); CARBON DIOXIDE 26 mmol/L (22-30); CHLORIDE 103 mmol/L (98-107); GLUCOSE 270 mg/dL (75-110); PHOSPHORUS 1.6 mg/dL (2.5-4.5); POTASSIUM 3.1 mmol/L (3.6-5.0); TOTAL PROTEIN 4.7 g/dL (6.3-8.2)
[2018-10-17 11:13] LABS: PREALBUMIN 8.9 mg/dL (17.6-36.0)
--- NOTE | 2018-10-17 13:14 | PDOC PROGRESS REPORT ---
Subjective Progress Note for:: 10/17/18 Subjective:: Patient feeling much better today, she denies abdominal pain, she still has some nausea but she is willing to try some food today. Reason For Visit: ACUTE COLITIS, INFECTIOUS, MALIGANT,ISCHEMIC Physical Exam Vital Signs: Temp Pulse Resp BP Pulse Ox 98.5 F 100 16 112/68 96 10/17/18 08:02 10/17/18 08:02 10/17/18 08:02 10/17/18 08:02 10/17/18 08:02 Intake & Output 10/16/18 10/17/18 10/18/18 06:59 06:59 06:59 Intake Total 610 1400 360 Output Total 600 1450 Balance 10 -50 360 Weight 78.4 kg 75.9 kg General appearance: PRESENT: no acute distress GI/Abdominal exam: PRESENT: soft, other - Minimally distended, not tender Extremities exam: PRESENT: other - Right upper extremity swelling Results Laboratory Results: 10/17/18 10:15 10/17/18 10:15 10/17/18 10/17/18 10:15 10:15 WBC 13.0 H RBC 3.15 L Hgb 9.7 L Hct 29.2 L MCV 92 MCH 30.6 MCHC 33.1 RDW 15.3 H Plt Count 271 Sodium 135.0 L Potassium 3.1 L Chloride 103 Carbon Dioxide 26 Anion Gap 6 BUN 6 L Creatinine 0.54 Est GFR ( Amer) > 60 Glucose 270 H Calcium 7.1 L Phosphorus 1.6 L Total Bilirubin 0.2 AST 10 L Alkaline Phosphatase 78 Total Protein 4.7 L Albumin 2.0 L Prealbumin 8.9 L 10/14/18 18:30 Stool - Stool - Final 10/14/18 18:30 Stool - Stool Stool Culture - Final C.albicans/C.dubliniensis Impressions: PICC Line Insertion 10/05/18 00:00 IMPRESSION: SUCCESSFUL PLACEMENT OF A 5 FR SINGLE LUMEN 38 CM PICC IN THE RIGHT BASILIC VEIN. Chest X-Ray 10/07/18 00:00 IMPRESSION: No acute findings in the chest. A right-sided PICC line has been added. Tip overlies the SVC. Abdomen/Pelvis CT 10/11/18 00:00 IMPRESSION: Diffuse nonspecific colitis, similar to the prior exam with liquefied stool/diarrhea. No free air or free fluid. TECHNICAL DOCUMENTATION: Quality ID # [id number]: Final reports with documentation of one or more dose reduction techniques (e.g., Automated exposure control, adjustment of the mA and/or kV according to patient size, use of iterative reconstruction technique) copyright 2011 [employer]- All Rights Reserved Assessment & Plan - Diagnosis (1) Colitis Is this a current diagnosis for this admission?: Yes - Plan Summary Plan Summary: Assessment: Colitis, with a pseudomembranes, unknown etiology Negative stool culture, negative toxin for Shigella and C. difficile Numerous blood process in the stool exam WBC down to 13 H&H stable Albumin 2.0: Low potassium 3.1 Patient on oral vancomycin, IV Flagyl and Cipro Patient started on hydrocortisone 75 mg IV push every 8 as yesterday by the railroad carman Dr. Martin Abdomen soft, not tender Right upper extremity with PICC line diffusely edematous Urine output improved following the administration of IV fluids Plan: Advance diet to soft mechanical Obtain venous Doppler right upper extremity to rule out DVT stat
--- NOTE | 2018-10-17 16:52 | XCELERA REPORT ---
[address] [address] Upper Extremity Venous Evaluation Name: NAN ALMEIDA Age: 73 yrs Gender: Female : 1945 Patient Status: Inpatient Patient Location: [address] [place] [address] Study Date: 10/17/2018 02:02 PM Procedure: Unilateral duplex scan of the right upper extremity veins was performed, including responses to compression and other maneuvers. Reason For Study: RUE diffuse edema w/PICC line; r/o DVT RUE Ordering Physician: VESNA RODRIGUES Performed By: Bladimir Masterson Right Side Venous Evaluation Abnormal vessel filling, no compression or Colour flow , enlarged veins, echo poor content, from Subclavian down to the Axillary vein veins. Also in the Basilic vein. Interpretation Summary Acute Deep vein thrombosis in the right upper extremity. : VESNA RODRIGUES > Drew Vanegas
[2018-10-17] MEDS: ENOXAPARIN SODIUM INJ 80 MG/0.8 ML DISP.SYRIN SUBCUT SCH (17:38)
[2018-10-17] MEDS: NORMAL SALINE 1000 ML 1,000 ML IV PRN (20:35)
--- NOTE | 2018-10-17 21:37 | PDOC PROGRESS REPORT ---
Subjective Progress Note for:: 10/17/18 Subjective:: Overall patient is doing moderately better today. She has minimum abdominal pain and has had no diarrhea. She has been able to tolerate soft diet. I last saw her on Wednesday when she had a flexible sigmoidoscopy that showed severe diffuse colitis of to the extent of the procedure at 25 cm. Her stool was negative for C. difficile toxin by PCR but the toxin by EIA result is pending from [facility]. Her biopsy showed severe acute colitis with crypt abscesses and no evidence of ischemic colitis identified. On further questioning patient denies any previous history of recurrent diarrhea. Her last colonoscopy was 9 years ago and did not show colitis. She was resumed on Cipro and Flagyl about 4 days ago and was started on p.o. vancomycin 4 days ago. IV hydrocortisone was started yesterday. She started to feel better yesterday. She is also on mesalamine. Reason For Visit: ACUTE COLITIS, INFECTIOUS, MALIGANT,ISCHEMIC Physical Exam Vital Signs: Temp Pulse Resp BP Pulse Ox 97.3 F 103 H 15 143/89 H 98 10/17/18 15:44 10/17/18 19:00 10/17/18 15:44 10/17/18 15:44 10/17/18 15:44 Intake & Output 10/16/18 10/17/18 10/18/18 06:59 06:59 06:59 Intake Total 610 1400 2611 Output Total 600 1450 Balance 10 -50 2611 Weight 78.4 kg 75.9 kg Exam: General: Patient is alert and looks better HEENT: There is no pallor or jaundice. PERRLA. Oropharynx normal Respiratory: No chest deformity. No respiratory distress. Chest wall palpitation was unremarkable. Breath sounds were normal Cardiovascular: Heart sounds 1 and 2 normal with no murmurs. Abdominal: Not distended. Soft and nontender. Liver and spleen not palpable. No ascites demonstrated. Bowel sounds active. Rectal examination was deferred. Extremities: There is some pitting edema Neurological: Alert and oriented x4. Grossly nonfocal. Normal speech Skin: No significant rash Psychological: Normal affect Results Laboratory Results: 10/17/18 10:15 10/17/18 10:15 10/17/18 10/17/18 10:15 10:15 WBC 13.0 H RBC 3.15 L Hgb 9.7 L Hct 29.2 L MCV 92 MCH 30.6 MCHC 33.1 RDW 15.3 H Plt Count 271 Sodium 135.0 L Potassium 3.1 L Chloride 103 Carbon Dioxide 26 Anion Gap 6 BUN 6 L Creatinine 0.54 Est GFR ( Amer) > 60 Glucose 270 H Calcium 7.1 L Phosphorus 1.6 L Total Bilirubin 0.2 AST 10 L Alkaline Phosphatase 78 Total Protein 4.7 L Albumin 2.0 L Prealbumin 8.9 L 10/14/18 18:30 Stool - Stool - Final 10/14/18 18:30 Stool - Stool Stool Culture - Final C.albicans/C.dubliniensis Impressions: PICC Line Insertion 10/05/18 00:00 IMPRESSION: SUCCESSFUL PLACEMENT OF A 5 FR SINGLE LUMEN 38 CM PICC IN THE RIGHT BASILIC VEIN. Chest X-Ray 10/07/18 00:00 IMPRESSION: No acute findings in the chest. A right-sided PICC line has been added. Tip overlies the SVC. Abdomen/Pelvis CT 10/11/18 00:00 IMPRESSION: Diffuse nonspecific colitis, similar to the prior exam with liquefied stool/diarrhea. No free air or free fluid. TECHNICAL DOCUMENTATION: Quality ID # [id number]: Final reports with documentation of one or more dose reduction techniques (e.g., Automated exposure control, adjustment of the mA and/or kV according to patient size, use of iterative reconstruction technique) copyright 2011 [employer]- All Rights Reserved Assessment & Plan - Diagnosis (1) Colitis Is this a current diagnosis for this admission?: Yes Plan: Patient has been doing better in the last 2 days presumably from the use of steroids, possibly from the antibiotics and mesalamine. Her stool test have been negative so far for infection. She does not have any previous history to suggest ulcerative colitis but her endoscopy picture and pathology are consistent with this. We will continue with the current management. Upon discharge she should be on mesalamine 4.8 g a day, prednisone 40 mg daily for 1 month to taper by 5 mg every week thereafter. She should also finish a 7- day course of Cipro and Flagyl. I will see her in the office and plan to perform a colonoscopy in a couple of months. (2) Abnormal finding on GI tract imaging Is this a current diagnosis for this admission?: Yes (3) Abdominal aortic aneurysm (AAA) without rupture Is this a current diagnosis for this admission?: Yes
[2018-10-17 22:33] LABS: APPEARANCE,URINE CLEAR; BILIRUBIN,URINE NEGATIVE (NEGATIVE); COLOR,URINE YELLOW; GLUCOSE, URINE 150 mg/dL (NEGATIVE); KETONES,URINE NEGATIVE (NEGATIVE); LEUKOCYTE ESTERASE,URINE NEGATIVE (NEGATIVE); NITRITE,URINE NEGATIVE (NEGATIVE); PROTEIN,URINE NEGATIVE (NEGATIVE); URINE SPECIFIC GRAVITY 1.012; UROBILINOGEN,URINE NEGATIVE mg/dL (<2.0)
--- NOTE | 2018-10-17 22:40 | PDOC PROGRESS REPORT ---
Subjective Progress Note for:: 10/17/18 Subjective:: Patient seen by the bedside, I was offered this weekend, she had lower GI endoscopy on Wednesday, the pathology of the specimen submitted demonstrated severe colitis with crypt abscesses, no evidence of ischemia on pathology. Patient presently on intravenous glucocorticoid/hydrocortisone, Flagyl, Cipro, patient is not responding to present regimen she has less tenderness she is beginning to eat, this suggest that she probably have inflammatory bowel disease, ulcerative colitis. She will continue IV hydrocortisone for few more days subsequently transitioned to p.o. prednisone. I will discontinue TPN, IV fluid.She also had right subclavian DVT, presently on Lovenox subacute Reason For Visit: ACUTE COLITIS, INFECTIOUS, MALIGANT,ISCHEMIC Physical Exam Vital Signs: Temp Pulse Resp BP Pulse Ox 97.3 F 103 H 15 143/89 H 98 10/17/18 15:44 10/17/18 19:00 10/17/18 15:44 10/17/18 15:44 10/17/18 15:44 Intake & Output 10/16/18 10/17/18 10/18/18 06:59 06:59 06:59 Intake Total 610 1400 2711 Output Total 600 1450 Balance 10 -50 2711 Weight 78.4 kg 75.9 kg General appearance: PRESENT: no acute distress Eye exam: PRESENT: PERRLA Respiratory exam: PRESENT: clear to auscultation mayra Cardiovascular exam: PRESENT: +S1, +S2 GI/Abdominal exam: PRESENT: soft Neurological exam: PRESENT: alert Results Laboratory Results: 10/17/18 10:15 10/17/18 10:15 10/17/18 10/17/18 10:15 10:15 WBC 13.0 H RBC 3.15 L Hgb 9.7 L Hct 29.2 L MCV 92 MCH 30.6 MCHC 33.1 RDW 15.3 H Plt Count 271 Sodium 135.0 L Potassium 3.1 L Chloride 103 Carbon Dioxide 26 Anion Gap 6 BUN 6 L Creatinine 0.54 Est GFR ( Amer) > 60 Glucose 270 H Calcium 7.1 L Phosphorus 1.6 L Total Bilirubin 0.2 AST 10 L Alkaline Phosphatase 78 Total Protein 4.7 L Albumin 2.0 L Prealbumin 8.9 L 10/14/18 18:30 Stool - Stool - Final 10/14/18 18:30 Stool - Stool Stool Culture - Final C.albicans/C.dubliniensis Impressions: PICC Line Insertion 10/05/18 00:00 IMPRESSION: SUCCESSFUL PLACEMENT OF A 5 FR SINGLE LUMEN 38 CM PICC IN THE RIGHT BASILIC VEIN. Chest X-Ray 10/07/18 00:00 IMPRESSION: No acute findings in the chest. A right-sided PICC line has been added. Tip overlies the SVC. Abdomen/Pelvis CT 10/11/18 00:00 IMPRESSION: Diffuse nonspecific colitis, similar to the prior exam with liquefied stool/diarrhea. No free air or free fluid. TECHNICAL DOCUMENTATION: Quality ID # [id number]: Final reports with documentation of one or more dose reduction techniques (e.g., Automated exposure control, adjustment of the mA and/or kV according to patient size, use of iterative reconstruction technique) copyright 2011 [employer]- All Rights Reserved Assessment & Plan - Diagnosis (1) Colitis Is this a current diagnosis for this admission?: Yes (2) Hypokalemia Is this a current diagnosis for this admission?: Yes (3) Abdominal aortic aneurysm (AAA) without rupture Is this a current diagnosis for this admission?: Yes (4) Inflammatory bowel disease (ulcerative colitis) Qualifiers: Ulcerative colitis location: other ulcerative colitis Digestive disease complication type: with abscess Qualified Code(s): K51.814 - Other ulcerative colitis with abscess Is this a current diagnosis for this admission?: Yes Plan: Continue IV hydrocortisone, antibiotic (5) Deep vein thrombosis, upper right extremity Qualifiers: Affected thrombotic vein of extremity: other upper extremity vein Chronicity: acute Qualified Code(s): I82.621 - Acute embolism and thrombosis of deep veins of right upper extremity Is this a current diagnosis for this admission?: Yes Plan: Start Lovenox subcu 1 mg/kg body weight every 12
[2018-10-18] MEDS: VANCOMYCIN HCL INJ 500 MG VIAL PO SCH ×4 (00:19→17:22)
[2018-10-18] MEDS: INSULIN REG, HUMAN 100 UNIT/ML 3 ML VIAL (PYX) SUBCUT SCH ×4 (00:19→17:05)
[2018-10-18] MEDS: METRONIDAZOLE 500 MG/NS RTU 500 MG/100 ML RTUPB IV SCH ×4 (02:21→20:04)
[2018-10-18] MEDS: HYDROCORTISONE SOD SUCCINATE INJ/PF 100 MG/2 ML SDV IV SCH ×3 (02:21→17:21)
[2018-10-18] MEDS: ENOXAPARIN SODIUM INJ 80 MG/0.8 ML DISP.SYRIN SUBCUT SCH ×2 (05:08→17:21)
[2018-10-18 07:15] LABS: ALKALINE PHOSPHATASE 121 U/L (38-126); ANION GAP 6 (5-19); ASPARTATE AMINO TRANSFERASE 13 U/L (14-36); BILIRUBIN,DIRECT 0.2 mg/dL (0.0-0.4); BILIRUBIN,TOTAL 0.3 mg/dL (0.2-1.3); BLOOD UREA NITROGEN 4 mg/dL (7-20); CALCIUM 7.1 mg/dL (8.4-10.2); CARBON DIOXIDE 28 mmol/L (22-30); CHLORIDE 103 mmol/L (98-107); GLUCOSE 145 mg/dL (75-110); PHOSPHORUS 2.2 mg/dL (2.5-4.5); TOTAL PROTEIN 4.9 g/dL (6.3-8.2)
[2018-10-18 07:22] LABS: PREALBUMIN 11.8 mg/dL (17.6-36.0)
[2018-10-18 07:27] LABS: POTASSIUM 2.9 mmol/L (3.6-5.0)
[2018-10-18] MEDS: MESALAMINE 400 MG CAPSULE.DR PO SCH ×3 (09:46→17:05)
[2018-10-18] MEDS: CIPROFLOXACIN 400 MG/D5W RTU 400 MG/200 ML RTUPB IV SCH ×2 (09:50→21:26)
[2018-10-18] MEDS: NORMAL SALINE 10 ML SDV (SCHEDULED) IV SCH ×2 (09:50→21:29)
[2018-10-18] MEDS ORDERED: POTASSIUM CHLORIDE 10 MEQ CAPSULE.ER PO SCH (10:00)
[2018-10-18] MEDS: POTASSIUM CHLORIDE 20 MEQ PACKET PO SCH ×4 (10:19→18:44)
--- NOTE | 2018-10-18 14:29 | PDOC PROGRESS REPORT ---
Subjective Progress Note for:: 10/18/18 Subjective:: Minimal abdominal pains Still having liquid stools but non bloody. Reason For Visit: ACUTE COLITIS, INFECTIOUS, MALIGANT,ISCHEMIC Physical Exam Vital Signs: Temp Pulse Resp BP Pulse Ox 97.4 F 101 H 20 123/66 96 10/18/18 05:57 10/18/18 14:00 10/18/18 05:57 10/18/18 05:57 10/18/18 05:57 Intake & Output 10/17/18 10/18/18 10/19/18 06:59 06:59 06:59 Intake Total 1400 3011 660 Output Total 1450 800 Balance -50 2211 660 Weight 75.9 kg 80.7 kg Exam: abdomen soft and non tender. Results Laboratory Results: 10/17/18 10:15 10/18/18 06:01 10/17/18 10/18/18 19:50 06:01 Sodium 136.8 L Potassium 2.9 L* Chloride 103 Carbon Dioxide 28 Anion Gap 6 BUN 4 L Creatinine 0.54 Est GFR ( Amer) > 60 Glucose 145 H Calcium 7.1 L Phosphorus 2.2 L Total Bilirubin 0.3 AST 13 L Alkaline Phosphatase 121 Total Protein 4.9 L Albumin 2.0 L Prealbumin 11.8 L Urine Color YELLOW Urine Appearance CLEAR Urine pH 7.0 Ur Specific [place] 1.012 Urine Protein NEGATIVE Urine Glucose (UA) 150 H Urine Ketones NEGATIVE Urine Blood NEGATIVE Urine Nitrite NEGATIVE Ur Leukocyte Esterase NEGATIVE Urine WBC (Auto) 1 Urine RBC (Auto) 0 10/14/18 18:30 Stool - Stool Clostridium difficile Toxin A & B - Final 10/14/18 18:30 Stool - Stool - Final 10/14/18 18:30 Stool - Stool Stool Culture - Final C.albicans/C.dubliniensis Impressions: PICC Line Insertion 10/05/18 00:00 IMPRESSION: SUCCESSFUL PLACEMENT OF A 5 FR SINGLE LUMEN 38 CM PICC IN THE RIGHT BASILIC VEIN. Chest X-Ray 10/07/18 00:00 IMPRESSION: No acute findings in the chest. A right-sided PICC line has been added. Tip overlies the SVC. Abdomen/Pelvis CT 10/11/18 00:00 IMPRESSION: Diffuse nonspecific colitis, similar to the prior exam with liquefied stool/diarrhea. No free air or free fluid. TECHNICAL DOCUMENTATION: Quality ID # [id number]: Final reports with documentation of one or more dose reduction techniques (e.g., Automated exposure control, adjustment of the mA and/or kV according to patient size, use of iterative reconstruction technique) copyright 2011 [employer]- All Rights Reserved Assessment & Plan - Diagnosis (1) Leukocytosis Qualifiers: Leukocytosis type: unspecified Qualified Code(s): D72.829 - Elevated white blood cell count, unspecified Is this a current diagnosis for this admission?: Yes (2) Colitis Is this a current diagnosis for this admission?: Yes - Time Time Spent with patient: 15-24 minutes - Inpatient Certification Based on my medical assessment, after consideration of the patient's comorbidities, presenting symptoms, or acuity I expect that the services needed warrant INPATIENT care.: Yes I certify that my determination is in accordance with my understanding of Medicare's requirements for reasonable and necessary INPATIENT services [42 CFR 412.3e].: Yes Medical Necessity: Need for IV Antibiotics - Plan Summary Plan Summary: Continue IV antibiotics. Will D/C Picc line when not needed. Will need Eloquist when discharged for 2 months for the right arm DVT. Will advance diet then taper TPN. Ask GI( Dr Martin ) for date of discharge.
[2018-10-18 18:38] LABS: ABSOLUTE LYMPHOCYTES (AUTO) 1.8 10^3/uL (0.5-4.7); ABSOLUTE MONOCYTES (AUTO) 1.6 10^3/uL (0.1-1.4); ABSOLUTE NEUT (AUTO) 12.3 10^3/uL (1.7-8.2); BASOPHILS % (AUTO) 0.1 % (0-2); HEMATOCRIT 32.3 % (36.0-47.0); HEMOGLOBIN 10.8 g/dL (12.0-15.5); LYMPHOCYTES % (AUTO) 11.3 % (13-45); MEAN CORPUSCULAR HEMOGLOBIN 31.1 pg (27.0-33.4); MEAN CORPUSCULAR HGB CONC 33.6 g/dL (32.0-36.0); MEAN CORPUSCULAR VOLUME 93 fl (80-97); MONOCYTES % (AUTO) 10.2 % (3-13); PLATELET COUNT 263 10^3/uL (150-450); RED BLOOD COUNT 3.49 10^6/uL (3.72-5.28); RED CELL DISTRIBUTION WIDTH 15.5 % (11.5-14.0); SEGMENTED NEUTROPHILS % (AUTO) 78.4 % (42-78); TOTAL CELLS COUNTED % (AUTO) 100 %; WHITE BLOOD COUNT 15.7 10^3/uL (4.0-10.5)
[2018-10-18 18:59] LABS: ALBUMIN 2.3 g/dL (3.5-5.0); ALKALINE PHOSPHATASE 163 U/L (38-126); ANION GAP 7 (5-19); ASPARTATE AMINO TRANSFERASE 27 U/L (14-36); BILIRUBIN,DIRECT 0.3 mg/dL (0.0-0.4); BILIRUBIN,TOTAL 0.6 mg/dL (0.2-1.3); BLOOD UREA NITROGEN 6 mg/dL (7-20); CALCIUM 7.3 mg/dL (8.4-10.2); CARBON DIOXIDE 27 mmol/L (22-30); CHLORIDE 103 mmol/L (98-107); GLUCOSE 203 mg/dL (75-110); TOTAL PROTEIN 5.6 g/dL (6.3-8.2)
[2018-10-18 19:00] LABS: POTASSIUM 3.9 mmol/L (3.6-5.0)
--- NOTE | 2018-10-18 22:25 | PDOC PROGRESS REPORT ---
Subjective Progress Note for:: 10/18/18 Subjective:: Patient seen by the bedside, she is having IV access problem, we will discontinue IV hydrocortisone start prednisone 40 mg p.o. daily. She has hypokalemia, having trouble with the tablets and also the liquid potassium Reason For Visit: ACUTE COLITIS, INFECTIOUS, MALIGANT,ISCHEMIC Physical Exam Vital Signs: Temp Pulse Resp BP Pulse Ox 97.4 F 99 20 123/72 97 10/18/18 19:36 10/18/18 19:36 10/18/18 19:36 10/18/18 19:36 10/18/18 19:36 Intake & Output 10/17/18 10/18/18 10/19/18 06:59 06:59 06:59 Intake Total 1400 3011 1220 Output Total 1450 800 Balance -50 2211 1220 Weight 75.9 kg 80.7 kg General appearance: PRESENT: no acute distress Eye exam: PRESENT: PERRLA Respiratory exam: PRESENT: clear to auscultation mayra Cardiovascular exam: PRESENT: +S1, +S2 GI/Abdominal exam: PRESENT: soft Neurological exam: PRESENT: alert Results Laboratory Results: 10/18/18 18:26 10/18/18 18:26 10/17/18 10/18/18 10/18/18 19:50 06:01 18:26 WBC 15.7 H RBC 3.49 L Hgb 10.8 L Hct 32.3 L MCV 93 MCH 31.1 MCHC 33.6 RDW 15.5 H Plt Count 263 Seg Neutrophils % 78.4 H Sodium 136.8 L Potassium 2.9 L* Chloride 103 Carbon Dioxide 28 Anion Gap 6 BUN 4 L Creatinine 0.54 Est GFR ( Amer) > 60 Glucose 145 H Calcium 7.1 L Phosphorus 2.2 L Total Bilirubin 0.3 AST 13 L Alkaline Phosphatase 121 Total Protein 4.9 L Albumin 2.0 L Prealbumin 11.8 L Urine Color YELLOW Urine Appearance CLEAR Urine pH 7.0 Ur Specific [place] 1.012 Urine Protein NEGATIVE Urine Glucose (UA) 150 H Urine Ketones NEGATIVE Urine Blood NEGATIVE Urine Nitrite NEGATIVE Ur Leukocyte Esterase NEGATIVE Urine WBC (Auto) 1 Urine RBC (Auto) 0 10/18/18 18:26 WBC RBC Hgb Hct MCV MCH MCHC RDW Plt Count Seg Neutrophils % Sodium 136.5 L Potassium 3.9 D Chloride 103 Carbon Dioxide 27 Anion Gap 7 BUN 6 L Creatinine 0.56 Est GFR ( Amer) > 60 Glucose 203 H Calcium 7.3 L Phosphorus Total Bilirubin 0.6 AST 27 Alkaline Phosphatase 163 H Total Protein 5.6 L Albumin 2.3 L Prealbumin Urine Color Urine Appearance Urine pH Ur Specific [place] Urine Protein Urine Glucose (UA) Urine Ketones Urine Blood Urine Nitrite Ur Leukocyte Esterase Urine WBC (Auto) Urine RBC (Auto) 10/14/18 18:30 Stool - Stool Clostridium difficile Toxin A & B - Final Impressions: PICC Line Insertion 10/05/18 00:00 IMPRESSION: SUCCESSFUL PLACEMENT OF A 5 FR SINGLE LUMEN 38 CM PICC IN THE RIGHT BASILIC VEIN. Chest X-Ray 10/07/18 00:00 IMPRESSION: No acute findings in the chest. A right-sided PICC line has been added. Tip overlies the SVC. Abdomen/Pelvis CT 10/11/18 00:00 IMPRESSION: Diffuse nonspecific colitis, similar to the prior exam with liquefied stool/diarrhea. No free air or free fluid. TECHNICAL DOCUMENTATION: Quality ID # [id number]: Final reports with documentation of one or more dose reduction techniques (e.g., Automated exposure control, adjustment of the mA and/or kV according to patient size, use of iterative reconstruction technique) copyright 2011 [employer]- All Rights Reserved Assessment & Plan - Diagnosis (1) Inflammatory bowel disease (ulcerative colitis) Qualifiers: Ulcerative colitis location: other ulcerative colitis Digestive disease complication type: with abscess Qualified Code(s): K51.814 - Other ulcerative colitis with abscess Is this a current diagnosis for this admission?: Yes Plan: Start p.o. prednisone (2) Hypokalemia Is this a current diagnosis for this admission?: Yes (3) Abdominal aortic aneurysm (AAA) without rupture Is this a current diagnosis for this admission?: Yes (4) Deep vein thrombosis, upper right extremity Qualifiers: Affected thrombotic vein of extremity: other upper extremity vein Chronicity: acute Qualified Code(s): I82.621 - Acute embolism and thrombosis of deep veins of right upper extremity Is this a current diagnosis for this admission?: Yes Plan: Continue Lovenox
[2018-10-18] MEDS ORDERED: MESALAMINE 400 MG CAPSULE.DR PO ONE (23:00)
[2018-10-19] MEDS: INSULIN REG, HUMAN 100 UNIT/ML 3 ML VIAL (PYX) SUBCUT SCH ×4 (00:19→17:57)
[2018-10-19] MEDS: ENOXAPARIN SODIUM INJ 80 MG/0.8 ML DISP.SYRIN SUBCUT SCH ×2 (06:08→20:34)
[2018-10-19 06:41] LABS: APPEARANCE,URINE CLEAR; BILIRUBIN,URINE NEGATIVE (NEGATIVE); COLOR,URINE STRAW; GLUCOSE, URINE NEGATIVE (NEGATIVE); KETONES,URINE NEGATIVE (NEGATIVE); LEUKOCYTE ESTERASE,URINE NEGATIVE (NEGATIVE); NITRITE,URINE NEGATIVE (NEGATIVE); PROTEIN,URINE NEGATIVE (NEGATIVE); URINE SPECIFIC GRAVITY 1.005; UROBILINOGEN,URINE NEGATIVE mg/dL (<2.0)
[2018-10-19] MEDS: PROMETHAZINE HCL INJ 25 MG/1 ML VIAL IV PRN ×2 (07:21→15:08)
[2018-10-19 08:38] LABS: HEMATOCRIT 33.3 % (36.0-47.0); HEMOGLOBIN 11.2 g/dL (12.0-15.5); MEAN CORPUSCULAR HEMOGLOBIN 30.7 pg (27.0-33.4); MEAN CORPUSCULAR HGB CONC 33.6 g/dL (32.0-36.0); MEAN CORPUSCULAR VOLUME 91 fl (80-97); PLATELET COUNT 340 10^3/uL (150-450); RED BLOOD COUNT 3.65 10^6/uL (3.72-5.28); RED CELL DISTRIBUTION WIDTH 15.3 % (11.5-14.0); WHITE BLOOD COUNT 18.3 10^3/uL (4.0-10.5)
[2018-10-19] MEDS ORDERED: PREDNISONE 20 MG TABLET PO SCH (10:00)
[2018-10-19] MEDS: NORMAL SALINE 10 ML SDV (SCHEDULED) IV SCH ×2 (10:30→22:14)
--- NOTE | 2018-10-19 11:03 | PDOC PROGRESS REPORT ---
Subjective Progress Note for:: 10/19/18 Subjective:: colitis Reason For Visit: ACUTE COLITIS, INFECTIOUS, MALIGANT,ISCHEMIC Physical Exam Vital Signs: Temp Pulse Resp BP Pulse Ox 98.1 F 94 20 138/81 H 96 10/19/18 03:17 10/19/18 07:41 10/19/18 03:17 10/19/18 03:17 10/19/18 03:17 Intake & Output 10/18/18 10/19/18 10/20/18 06:59 06:59 06:59 Intake Total 3011 1420 Output Total 800 1100 Balance 2211 320 Weight 80.7 kg 81 kg General appearance: PRESENT: no acute distress, mild distress, obese Head exam: PRESENT: normocephalic Eye exam: PRESENT: EOMI Ear exam: PRESENT: normal external ear exam Mouth exam: PRESENT: dry mucosa, moist Neck exam: PRESENT: full ROM Respiratory exam: PRESENT: clear to auscultation mayra Cardiovascular exam: PRESENT: RRR Pulses: PRESENT: normal radial pulses, normal femoral pulses GI/Abdominal exam: PRESENT: tenderness - tender diffusly to deep palpation, Rectal exam: PRESENT: deferred Extremities exam: PRESENT: full ROM Musculoskeletal exam: PRESENT: full ROM Neurological exam: PRESENT: alert, oriented to person, oriented to place Psychiatric exam: PRESENT: appropriate affect Skin exam: PRESENT: dry Results Laboratory Results: 10/19/18 07:59 10/18/18 18:26 10/18/18 10/18/18 10/19/18 18:26 18:26 06:00 WBC 15.7 H RBC 3.49 L Hgb 10.8 L Hct 32.3 L MCV 93 MCH 31.1 MCHC 33.6 RDW 15.5 H Plt Count 263 Seg Neutrophils % 78.4 H Sodium 136.5 L Potassium 3.9 D Chloride 103 Carbon Dioxide 27 Anion Gap 7 BUN 6 L Creatinine 0.56 Est GFR ( Amer) > 60 Glucose 203 H Calcium 7.3 L Total Bilirubin 0.6 AST 27 Alkaline Phosphatase 163 H Total Protein 5.6 L Albumin 2.3 L Urine Color STRAW Urine Appearance CLEAR Urine pH 8.0 Ur Specific [place] 1.005 Urine Protein NEGATIVE Urine Glucose (UA) NEGATIVE Urine Ketones NEGATIVE Urine Blood NEGATIVE Urine Nitrite NEGATIVE Ur Leukocyte Esterase NEGATIVE Urine WBC (Auto) 1 Urine RBC (Auto) 1 10/19/18 07:59 WBC 18.3 H RBC 3.65 L Hgb 11.2 L Hct 33.3 L MCV 91 MCH 30.7 MCHC 33.6 RDW 15.3 H Plt Count 340 Seg Neutrophils % Sodium Potassium Chloride Carbon Dioxide Anion Gap BUN Creatinine Est GFR ( Amer) Glucose Calcium Total Bilirubin AST Alkaline Phosphatase Total Protein Albumin Urine Color Urine Appearance Urine pH Ur Specific [place] Urine Protein Urine Glucose (UA) Urine Ketones Urine Blood Urine Nitrite Ur Leukocyte Esterase Urine WBC (Auto) Urine RBC (Auto) 10/14/18 18:30 Stool - Stool Clostridium difficile Toxin A & B - Final Impressions: PICC Line Insertion 10/05/18 00:00 IMPRESSION: SUCCESSFUL PLACEMENT OF A 5 FR SINGLE LUMEN 38 CM PICC IN THE RIGHT BASILIC VEIN. Chest X-Ray 10/07/18 00:00 IMPRESSION: No acute findings in the chest. A right-sided PICC line has been added. Tip overlies the SVC. Abdomen/Pelvis CT 10/11/18 00:00 IMPRESSION: Diffuse nonspecific colitis, similar to the prior exam with liquefied stool/diarrhea. No free air or free fluid. TECHNICAL DOCUMENTATION: Quality ID # [id number]: Final reports with documentation of one or more dose reduction techniques (e.g., Automated exposure control, adjustment of the mA and/or kV according to patient size, use of iterative reconstruction technique) copyright 2011 [employer]- All Rights Reserved Assessment & Plan - Diagnosis (1) Colitis Is this a current diagnosis for this admission?: Yes - Plan Summary Plan Summary: Patient's case was discussed with Dr. Martin this morning minerva in the hospital with chronic bloody diarrhea and abdominal pain she has been here for approximately 3 weeks So unclear whether this is a infectious versus hemic versus inflammatory colitis however her entire colon from her rectum to her cecum is thickened on CT scan. This morning surgery was again asked to see her because of increased abdominal pain last night. Your CAT scan about a week ago shows the entire colon is inflamed thickened. There is no evidence of free air perforation on the CT scan done about a week ago. Dr. Pro scope the patient recently to about 25 cm noting subtle changes cons istent with colitis given the acute onset question whether this is an ulcerative colitis. The diffuse nature of the colitis really not consistent with an ischemic colitis. Dr. Pro started the patient recently on steroids she continues on IV antibiotics recent PCR for C. difficile is been negative. I had a long discussion with the patient and her this morning. Discussed the possibility of abdominal colectomy second secondary to the unrelenting nature of this process. Patient is increasingly frustrated with the ongoing abdominal pain and diarrhea and is entertain the possibility of surgery. She does have significant comorbidities making her fairly high risk for surgery and subsequent to her abdominal colectomy could result in chronic diarrhea or the need for an ileostomy. At this point after discussion with Dr. Martin the plan is to continue her IV steroids for a few more days repeat her CT scan today to rule out any acute changes and if really no improvement over the course of the next 4 to 5 days we will reconsider abdominal colectomy
[2018-10-19] MEDS: MESALAMINE 400 MG CAPSULE.DR PO SCH ×3 (12:29→17:57)
[2018-10-19] MEDS: HYDROCORTISONE SOD SUCCINATE INJ/PF 100 MG/2 ML SDV IV SCH ×2 (17:25→22:16)
[2018-10-19] MEDS: POTASSI CL 20 MEQ/D5NS 1L 1000 ML IV PRN (17:25)
--- NOTE | 2018-10-19 18:18 | PDOC TRANSFER SUMMARY ---
General Admission Date/PCP: 10/01/18 18:56 ARTIS VENEGAS MD Resuscitation Status: Full Code - Transfer Diagnosis (1) Inflammatory bowel disease (ulcerative colitis) Is this a current diagnosis for this admission?: Yes (2) Hypokalemia Is this a current diagnosis for this admission?: Yes (3) Abdominal aortic aneurysm (AAA) without rupture Is this a current diagnosis for this admission?: Yes (4) Deep vein thrombosis, upper right extremity Is this a current diagnosis for this admission?: Yes - Transfer Medications Home Medications: Pravastatin Sodium [Pravachol] 10 mg PO QHS 05/18/18 Tiotropium [place] [Spiriva Handihaler 5 Cap/Kit (18 Mcg/Cap)] 1 cap IH DAILY 05/18/18 Transfer Medications: Current Medications Dextrose (Dextrose Inj 50% Syringe (25 Gm/50 Ml)) 25 gm IV PRN PRN; Protocol PRN Reason: PER PROTOCOL Stop: 11/14/18 08:59 Enoxaparin Sodium (Lovenox Inj 80 Mg/0.8 Ml Disp.Syrin) 75 mg SUBCUT Q12A SANDRINE Stop: 11/16/18 15:44 Last Admin: 10/19/18 06:08 Dose: 75 mg Documented by: Glucagon (Glucagen Inj 1 Mg Vial) 1 mg IM PRN PRN; Protocol PRN Reason: EVALUATE FOR BG < 70 Stop: 11/14/18 08:59 Heparin Sodium (Porcine) (Heparin Flush 10 Unit/Ml 5 Ml Disp.Syrg) 30 unit IV .AFTER EACH USE PRN Stop: 11/04/18 13:29 Last Admin: 10/12/18 08:54 Dose: 30 unit Documented by: Heparin Sodium (Porcine) (Heparin Flush 10 Unit/Ml 5 Ml Disp.Syrg) 30 unit IV Q12 SANDRINE Stop: 11/13/18 09:59 Last Admin: 10/19/18 15:12 Dose: 30 unit Documented by: Hydrocortisone Sodium Succinate (Solu-Cortef Inj/Pf 100 Mg/ 2 Ml Sdv) 75 mg IV Q8 SANDRINE Stop: 11/18/18 14:59 Last Admin: 10/19/18 17:25 Dose: 75 mg Documented by: Potassium Chloride/Dextrose/Sod Cl (D5ns 1000 Ml/Kcl 20 Meq Premix Bag) 20 meq in 1,000 mls @ 100 mls/hr IV CONTINUOUS PRN PRN Reason: THIS MED IS NOT "PRN" Stop: 11/18/18 14:25 Last Admin: 10/19/18 17:25 Dose: 100 ml/hr, 100 mls/hr Documented by: Insulin Human Regular (Humulin R (Pyxis) Insulin 100 Unit/Ml 3ml) 0 - 12 unit SUBCUT Q6 [facility]; Protocol Stop: 11/14/18 11:59 Last Admin: 10/19/18 17:57 Dose: Not Given Documented by: Mesalamine (Asacol Sr 400 Mg Capsule) 800 mg PO TID SANDRINE Stop: 11/18/18 09:59 Last Admin: 10/19/18 17:57 Dose: Not Given Documented by: Promethazine HCl (Phenergan Inj 25 Mg/1 Ml Vial) 6.25 mg IV Q4HP PRN PRN Reason: UNRESOLVED NAUSEA/VOMITING Stop: 11/15/18 10:07 Last Admin: 10/19/18 15:08 Dose: 6.25 mg Documented by: Sodium Chloride (Nacl 0.9% Inj/Pf 10 Ml Sdv) 10 ml IV Q12 SANDRINE Stop: 11/04/18 21:59 Last Admin: 10/19/18 10:30 Dose: 10 ml Documented by: Sodium Chloride (Nacl 0.9% Inj/Pf 10 Ml Sdv) 10 ml IV .AFTER EACH USE PRN Stop: 11/04/18 13:29 Last Admin: 10/14/18 21:01 Dose: 10 ml Documented by: - Allergies Allergies/Adverse Reactions: No Known Allergies Allergy (Verified 05/18/18 10:22) Hospital Course Hospital Course: Patient is a 73-year-old female, she was admitted initially on 09/09/2018 when she presented with GI symptoms, abdominal pain, bloody diarrhea, she had a CAT scan of the abdomen and pelvis with IV contrast that demonstrated thickening of the ascending colon she was diagnosed with colitis, admitted started on IV antibiotic ciprofloxacin and Flagyl. There was improvement in 24 hours, it was felt at the time that is probably infectious colitis so she was discharged home on p.o. antibiotic. She returned to the emergency room on 10/01/2018 roughly 3 days after discharge because of worsening abdominal pain, persistent vomiting, bloody diarrhea. In the emergency room she was reevaluated, she also underwent a CAT scan of the abdomen and pelvis with IV contrast that demonstrated worsening diffuse wall thickening of the colon which was said to have increased when compared to the prior CT scan that was done on She was admitted, she was continued on IV antibiotic Cipro and Flagyl at this point it was felt that she probably have ischemic colitis consultation was requested from surgery, the surgeon did not see any immediate need for laparotomy/colectomy. The presumptive diagnosis was that this is probably ischemic colitis. The stool study that was done including culture, C. difficile toxin came back negative but patient condition continues to smoulder not doing quite well clinically with abdominal pain, anorexia nausea. Patient lost her appetite with no food intake, it was felt that she probably needed a TPN, a central line, subclavian IV line was placed and patient was treated with TPN this intravenous line was complicated with swelling a Doppler was done she was found to have deep vein thrombosis of the right upper extremities at the site of IV line inserted ,this led to Lovenox 1 mg/kg body weight she will continue same for 3 months. Patient condition continued to deteriorate there was back and forth of the need to do surgery, I consulted the gastroneurologist Dr. Martin, ultimately she had a colonoscopy done, the findings was suspicious for pseudomembrane colitis, could l only advanced the scope up to 25 cm length of the colon, biopsies were taken the pathology of the biopsy material demonstrated crypt abscesses that suggest ulcerative colitis. She was started on IV hydrocortisone, mesalamine IV antibiotic. With this regimen patient showed improvement. Yesterday which was 10/18/2018, patient was transitioned to p.o. prednisone with intent to discharge by end of the week then today patient's condition worsened with abdominal pain, bloody diarrhea ,nausea. She was seen by the surgeon and total colectomy was again entertained as an option of care. I felt that patient needed at this point to be transferred to [facility] for other treatment options including Remicade intravenously before we pursue total colectomy. [facility] was kind enough to accept in transfer pending the availability of beds, She has had a total of 3 CAT scan of the abdomen and pelvis with IV contrast since 2018 Physical Exam Vital Signs: Temp Pulse Resp BP Pulse Ox 98.1 F 94 20 138/81 H 96 10/19/18 03:17 10/19/18 07:41 10/19/18 03:17 10/19/18 03:17 10/19/18 03:17 Intake & Output 10/18/18 10/19/18 10/20/18 06:59 06:59 06:59 Intake Total 3011 1420 480 Output Total 800 1100 Balance 2211 320 480 Weight 80.7 kg 81 kg General appearance: PRESENT: no acute distress Eye exam: PRESENT: PERRLA Respiratory exam: PRESENT: clear to auscultation mayra Cardiovascular exam: PRESENT: +S1, +S2 GI/Abdominal exam: PRESENT: soft, tenderness Neurological exam: PRESENT: alert, CN II-XII grossly intact Results Laboratory Results: 10/19/18 07:59 10/18/18 18:26 10/18/18 10/18/18 10/19/18 18:26 18:26 06:00 WBC 15.7 H RBC 3.49 L Hgb 10.8 L Hct 32.3 L MCV 93 MCH 31.1 MCHC 33.6 RDW 15.5 H Plt Count 263 Seg Neutrophils % 78.4 H Sodium 136.5 L Potassium 3.9 D Chloride 103 Carbon Dioxide 27 Anion Gap 7 BUN 6 L Creatinine 0.56 Est GFR ( Amer) > 60 Glucose 203 H Calcium 7.3 L Total Bilirubin 0.6 AST 27 Alkaline Phosphatase 163 H Total Protein 5.6 L Albumin 2.3 L Urine Color STRAW Urine Appearance CLEAR Urine pH 8.0 Ur Specific [place] 1.005 Urine Protein NEGATIVE Urine Glucose (UA) NEGATIVE Urine Ketones NEGATIVE Urine Blood NEGATIVE Urine Nitrite NEGATIVE Ur Leukocyte Esterase NEGATIVE Urine WBC (Auto) 1 Urine RBC (Auto) 1 10/19/18 07:59 WBC 18.3 H RBC 3.65 L Hgb 11.2 L Hct 33.3 L MCV 91 MCH 30.7 MCHC 33.6 RDW 15.3 H Plt Count 340 Seg Neutrophils % Sodium Potassium Chloride Carbon Dioxide Anion Gap BUN Creatinine Est GFR ( Amer) Glucose Calcium Total Bilirubin AST Alkaline Phosphatase Total Protein Albumin Urine Color Urine Appearance Urine pH Ur Specific [place] Urine Protein Urine Glucose (UA) Urine Ketones Urine Blood Urine Nitrite Ur Leukocyte Esterase Urine WBC (Auto) Urine RBC (Auto) Impressions: PICC Line Insertion 10/05/18 00:00 IMPRESSION: SUCCESSFUL PLACEMENT OF A 5 FR SINGLE LUMEN 38 CM PICC IN THE RIGHT BASILIC VEIN. Chest X-Ray 10/07/18 00:00 IMPRESSION: No acute findings in the chest. A right-sided PICC line has been added. Tip overlies the SVC. Abdomen/Pelvis CT 10/11/18 00:00 IMPRESSION: Diffuse nonspecific colitis, similar to the prior exam with liquefied stool/diarrhea. No free air or free fluid. TECHNICAL DOCUMENTATION: Quality ID # [id number]: Final reports with documentation of one or more dose reduction techniques (e.g., Automated exposure control, adjustment of the mA and/or kV according to patient size, use of iterative reconstruction technique) copyright 2010 [employer]- All Rights Reserved
--- NOTE | 2018-10-19 18:21 | PDOC PROGRESS REPORT ---
Subjective Progress Note for:: 10/19/18 Subjective:: Patient seen by the bedside, her condition seems to have was seen today, [facility] see my transfer summary for details Reason For Visit: ACUTE COLITIS, INFECTIOUS, MALIGANT,ISCHEMIC Physical Exam Vital Signs: Temp Pulse Resp BP Pulse Ox 98.1 F 94 20 138/81 H 96 10/19/18 03:17 10/19/18 07:41 10/19/18 03:17 10/19/18 03:17 10/19/18 03:17 Intake & Output 10/18/18 10/19/18 10/20/18 06:59 06:59 06:59 Intake Total 3011 1420 480 Output Total 800 1100 Balance 2211 320 480 Weight 80.7 kg 81 kg General appearance: PRESENT: no acute distress Eye exam: PRESENT: PERRLA Respiratory exam: PRESENT: clear to auscultation mayra Cardiovascular exam: PRESENT: +S1, +S2 GI/Abdominal exam: PRESENT: soft Neurological exam: PRESENT: alert Results Laboratory Results: 10/19/18 07:59 10/18/18 18:26 10/18/18 10/18/18 10/19/18 18:26 18:26 06:00 WBC 15.7 H RBC 3.49 L Hgb 10.8 L Hct 32.3 L MCV 93 MCH 31.1 MCHC 33.6 RDW 15.5 H Plt Count 263 Seg Neutrophils % 78.4 H Sodium 136.5 L Potassium 3.9 D Chloride 103 Carbon Dioxide 27 Anion Gap 7 BUN 6 L Creatinine 0.56 Est GFR ( Amer) > 60 Glucose 203 H Calcium 7.3 L Total Bilirubin 0.6 AST 27 Alkaline Phosphatase 163 H Total Protein 5.6 L Albumin 2.3 L Urine Color STRAW Urine Appearance CLEAR Urine pH 8.0 Ur Specific [place] 1.005 Urine Protein NEGATIVE Urine Glucose (UA) NEGATIVE Urine Ketones NEGATIVE Urine Blood NEGATIVE Urine Nitrite NEGATIVE Ur Leukocyte Esterase NEGATIVE Urine WBC (Auto) 1 Urine RBC (Auto) 1 10/19/18 07:59 WBC 18.3 H RBC 3.65 L Hgb 11.2 L Hct 33.3 L MCV 91 MCH 30.7 MCHC 33.6 RDW 15.3 H Plt Count 340 Seg Neutrophils % Sodium Potassium Chloride Carbon Dioxide Anion Gap BUN Creatinine Est GFR ( Amer) Glucose Calcium Total Bilirubin AST Alkaline Phosphatase Total Protein Albumin Urine Color Urine Appearance Urine pH Ur Specific [place] Urine Protein Urine Glucose (UA) Urine Ketones Urine Blood Urine Nitrite Ur Leukocyte Esterase Urine WBC (Auto) Urine RBC (Auto) Impressions: PICC Line Insertion 10/05/18 00:00 IMPRESSION: SUCCESSFUL PLACEMENT OF A 5 FR SINGLE LUMEN 38 CM PICC IN THE RIGHT BASILIC VEIN. Chest X-Ray 10/07/18 00:00 IMPRESSION: No acute findings in the chest. A right-sided PICC line has been added. Tip overlies the SVC. Abdomen/Pelvis CT 10/11/18 00:00 IMPRESSION: Diffuse nonspecific colitis, similar to the prior exam with liquefied stool/diarrhea. No free air or free fluid. TECHNICAL DOCUMENTATION: Quality ID # [id number]: Final reports with documentation of one or more dose reduction techniques (e.g., Automated exposure control, adjustment of the mA and/or kV according to patient size, use of iterative reconstruction technique) copyright 2011 [employer]- All Rights Reserved Assessment & Plan - Diagnosis (1) Inflammatory bowel disease (ulcerative colitis) Qualifiers: Ulcerative colitis location: other ulcerative colitis Digestive disease complication type: with abscess Qualified Code(s): K51.814 - Other ulcerative colitis with abscess Is this a current diagnosis for this admission?: Yes Plan: Continue IV hydrocortisone, mesalamine (2) Hypokalemia Is this a current diagnosis for this admission?: Yes (3) Abdominal aortic aneurysm (AAA) without rupture Is this a current diagnosis for this admission?: Yes (4) Deep vein thrombosis, upper right extremity Qualifiers: Affected thrombotic vein of extremity: other upper extremity vein Chronicity: acute Qualified Code(s): I82.621 - Acute embolism and thrombosis of deep veins of right upper extremity Is this a current diagnosis for this admission?: Yes
[2018-10-20] MEDS: INSULIN REG, HUMAN 100 UNIT/ML 3 ML VIAL (PYX) SUBCUT SCH ×4 (00:25→17:37)
[2018-10-20] MEDS: POTASSI CL 20 MEQ/D5NS 1L 1000 ML IV PRN ×2 (04:16→15:44)
[2018-10-20] MEDS: HYDROCORTISONE SOD SUCCINATE INJ/PF 100 MG/2 ML SDV IV SCH ×3 (05:31→21:36)
[2018-10-20] MEDS: ENOXAPARIN SODIUM INJ 80 MG/0.8 ML DISP.SYRIN SUBCUT SCH ×2 (05:33→21:35)
[2018-10-20] MEDS: MESALAMINE 400 MG CAPSULE.DR PO SCH ×3 (09:16→17:33)
[2018-10-20] MEDS: NORMAL SALINE 10 ML SDV (SCHEDULED) IV SCH ×2 (09:21→21:35)
--- NOTE | 2018-10-20 19:11 | PDOC PROGRESS REPORT ---
Subjective Progress Note for:: 10/20/18 Subjective:: feels better today after IV steroids resumed. Less abdominal pains. Awaiting bed availability at [facility] Reason For Visit: ACUTE COLITIS, INFECTIOUS, MALIGANT,ISCHEMIC Physical Exam Vital Signs: Temp Pulse Resp BP Pulse Ox 97.6 F 104 H 16 119/71 99 10/20/18 15:05 10/20/18 15:05 10/20/18 15:05 10/20/18 15:05 10/20/18 15:05 Intake & Output 10/19/18 10/20/18 10/21/18 06:59 06:59 06:59 Intake Total 1420 1600 1360 Output Total 1100 200 900 Balance 320 1400 460 Weight 81 kg 71.8 kg Exam: Abdomen is soft with less distention and tenderness Results Laboratory Results: 10/19/18 07:59 10/18/18 18:26 Impressions: PICC Line Insertion 10/05/18 00:00 IMPRESSION: SUCCESSFUL PLACEMENT OF A 5 FR SINGLE LUMEN 38 CM PICC IN THE RIGHT BASILIC VEIN. Chest X-Ray 10/07/18 00:00 IMPRESSION: No acute findings in the chest. A right-sided PICC line has been added. Tip overlies the SVC. Abdomen/Pelvis CT 10/11/18 00:00 IMPRESSION: Diffuse nonspecific colitis, similar to the prior exam with liquefied stool/diarrhea. No free air or free fluid. TECHNICAL DOCUMENTATION: Quality ID # [id number]: Final reports with documentation of one or more dose reduction techniques (e.g., Automated exposure control, adjustment of the mA and/or kV according to patient size, use of iterative reconstruction technique) copyright 2011 [employer]- All Rights Reserved Assessment & Plan - Diagnosis (1) Leukocytosis Qualifiers: Leukocytosis type: unspecified Qualified Code(s): D72.829 - Elevated white blood cell count, unspecified Is this a current diagnosis for this admission?: Yes (2) Colitis Is this a current diagnosis for this admission?: Yes - Time Time Spent with patient: 15-24 minutes - Inpatient Certification Medical Necessity: Need for IV Antibiotics, Risk of Complication if Not Cared For in Hospital - Plan Summary Plan Summary: Awaiting transfer to [facility] Clinically better than yesterday but still would transfer her to [facility] being a complicated prolonged Colitis
[2018-10-20 19:49] LABS: HEMATOCRIT 30.9 % (36.0-47.0); HEMOGLOBIN 10.4 g/dL (12.0-15.5); MEAN CORPUSCULAR HEMOGLOBIN 31.1 pg (27.0-33.4); MEAN CORPUSCULAR HGB CONC 33.7 g/dL (32.0-36.0); MEAN CORPUSCULAR VOLUME 92 fl (80-97); PLATELET COUNT 310 10^3/uL (150-450); RED BLOOD COUNT 3.35 10^6/uL (3.72-5.28); RED CELL DISTRIBUTION WIDTH 15.9 % (11.5-14.0); WHITE BLOOD COUNT 14.2 10^3/uL (4.0-10.5)
[2018-10-20 19:53] LABS: ANION GAP 7 (5-19); BLOOD UREA NITROGEN 6 mg/dL (7-20); CARBON DIOXIDE 29 mmol/L (22-30); CHLORIDE 105 mmol/L (98-107); GLUCOSE 228 mg/dL (75-110)
[2018-10-20 20:21] LABS: CALCIUM 6.9 mg/dL (8.4-10.2); POTASSIUM 2.9 mmol/L (3.6-5.0)
[2018-10-20] MEDS ORDERED: POTASSIUM CHLORIDE 20 MEQ PACKET PO SCH (22:00)
--- NOTE | 2018-10-20 22:25 | PDOC PROGRESS REPORT ---
Subjective Progress Note for:: 10/20/18 Subjective:: Patient seen by the bedside, still awaiting availability of bed at [facility], she has hypokalemia, hypocalcemia but calcium corrected for albumin is normal. Replace potassium, continue IV hydrocortisone Reason For Visit: ACUTE COLITIS, INFECTIOUS, MALIGANT,ISCHEMIC Physical Exam Vital Signs: Temp Pulse Resp BP Pulse Ox 98.1 F 94 20 116/69 98 10/20/18 19:42 10/20/18 19:42 10/20/18 19:42 10/20/18 19:42 10/20/18 19:42 Intake & Output 10/19/18 10/20/18 10/21/18 06:59 06:59 06:59 Intake Total 1420 1600 1360 Output Total 1100 200 900 Balance 320 1400 460 Weight 81 kg 71.8 kg General appearance: PRESENT: no acute distress Eye exam: PRESENT: PERRLA Respiratory exam: PRESENT: clear to auscultation mayra Cardiovascular exam: PRESENT: +S1, +S2 GI/Abdominal exam: PRESENT: soft Neurological exam: PRESENT: alert Results Laboratory Results: 10/20/18 19:17 10/20/18 19:17 10/20/18 10/20/18 19:17 19:17 WBC 14.2 H RBC 3.35 L Hgb 10.4 L Hct 30.9 L MCV 92 MCH 31.1 MCHC 33.7 RDW 15.9 H Plt Count 310 Sodium 140.7 Potassium 2.9 L* Chloride 105 Carbon Dioxide 29 Anion Gap 7 BUN 6 L Creatinine 0.60 Est GFR ( Amer) > 60 Glucose 228 H Calcium 6.9 L* Magnesium 1.9 Impressions: PICC Line Insertion 10/05/18 00:00 IMPRESSION: SUCCESSFUL PLACEMENT OF A 5 FR SINGLE LUMEN 38 CM PICC IN THE RIGHT BASILIC VEIN. Chest X-Ray 10/07/18 00:00 IMPRESSION: No acute findings in the chest. A right-sided PICC line has been added. Tip overlies the SVC. Abdomen/Pelvis CT 10/11/18 00:00 IMPRESSION: Diffuse nonspecific colitis, similar to the prior exam with liquefied stool/diarrhea. No free air or free fluid. TECHNICAL DOCUMENTATION: Quality ID # [id number]: Final reports with documentation of one or more dose reduction techniques (e.g., Automated exposure control, adjustment of the mA and/or kV according to patient size, use of iterative reconstruction technique) copyright 2011 [employer]- All Rights Reserved Assessment & Plan - Diagnosis (1) Inflammatory bowel disease (ulcerative colitis) Qualifiers: Ulcerative colitis location: other ulcerative colitis Digestive disease complication type: with abscess Qualified Code(s): K51.814 - Other ulcerative colitis with abscess Is this a current diagnosis for this admission?: Yes Plan: Continue IV hydrocortisone (2) Hypokalemia Is this a current diagnosis for this admission?: Yes Plan: Replace potassium (3) Abdominal aortic aneurysm (AAA) without rupture Is this a current diagnosis for this admission?: Yes (4) Deep vein thrombosis, upper right extremity Qualifiers: Affected thrombotic vein of extremity: other upper extremity vein Chronicity: acute Qualified Code(s): I82.621 - Acute embolism and thrombosis of deep veins of right upper extremity Is this a current diagnosis for this admission?: Yes Plan: Continue Lovenox
[2018-10-21] MEDS: INSULIN REG, HUMAN 100 UNIT/ML 3 ML VIAL (PYX) SUBCUT SCH ×4 (01:12→18:02)
[2018-10-21] MEDS: POTASSIUM CHLORIDE 10 MEQ CAPSULE.ER PO SCH ×2 (01:13→05:12)
[2018-10-21] MEDS: POTASSI CL 20 MEQ/D5NS 1L 1000 ML IV PRN ×2 (04:17→16:22)
[2018-10-21] MEDS: ENOXAPARIN SODIUM INJ 80 MG/0.8 ML DISP.SYRIN SUBCUT SCH ×2 (05:12→18:04)
[2018-10-21] MEDS: HYDROCORTISONE SOD SUCCINATE INJ/PF 100 MG/2 ML SDV IV SCH ×3 (05:13→21:21)
[2018-10-21 07:20] LABS: HEMATOCRIT 30.6 % (36.0-47.0); HEMOGLOBIN 10.1 g/dL (12.0-15.5); MEAN CORPUSCULAR HEMOGLOBIN 30.7 pg (27.0-33.4); MEAN CORPUSCULAR HGB CONC 33.1 g/dL (32.0-36.0); MEAN CORPUSCULAR VOLUME 93 fl (80-97); PLATELET COUNT 302 10^3/uL (150-450); RED CELL DISTRIBUTION WIDTH 16.1 % (11.5-14.0); WHITE BLOOD COUNT 13.5 10^3/uL (4.0-10.5)
[2018-10-21 08:40] LABS: ALBUMIN 2.2 g/dL (3.5-5.0); ALKALINE PHOSPHATASE 158 U/L (38-126); ASPARTATE AMINO TRANSFERASE 17 U/L (14-36); BILIRUBIN,DIRECT 0.2 mg/dL (0.0-0.4); BILIRUBIN,TOTAL 0.3 mg/dL (0.2-1.3); BLOOD UREA NITROGEN 5 mg/dL (7-20); CARBON DIOXIDE 30 mmol/L (22-30); GLUCOSE 173 mg/dL (75-110); TOTAL PROTEIN 5.1 g/dL (6.3-8.2)
[2018-10-21 08:45] LABS: CHLORIDE 107 mmol/L (98-107)
[2018-10-21 08:51] LABS: CALCIUM 6.9 mg/dL (8.4-10.2)
[2018-10-21 08:52] LABS: ANION GAP 3 (5-19)
[2018-10-21 08:58] LABS: POTASSIUM 3.9 mmol/L (3.6-5.0)
[2018-10-21] MEDS: MESALAMINE 400 MG CAPSULE.DR PO SCH ×3 (09:37→18:05)
[2018-10-21] MEDS: NORMAL SALINE 10 ML SDV (SCHEDULED) IV SCH (09:38)
--- NOTE | 2018-10-21 11:42 | PDOC PROGRESS REPORT ---
Subjective Progress Note for:: 10/21/18 Subjective:: feels a lot better today . Minimal abdominal pains Reason For Visit: ACUTE COLITIS, INFECTIOUS, MALIGANT,ISCHEMIC Physical Exam Vital Signs: Temp Pulse Resp BP Pulse Ox 98.0 F 99 16 132/77 H 97 10/21/18 08:07 10/21/18 08:07 10/21/18 08:07 10/21/18 08:07 10/21/18 08:07 Intake & Output 10/20/18 10/21/18 10/22/18 06:59 06:59 06:59 Intake Total 1600 2360 Output Total 200 2250 Balance 1400 110 Weight 71.8 kg 76.5 kg Exam: abdomen is soft and minimal tenderness Results Laboratory Results: 10/21/18 06:56 10/21/18 06:56 10/20/18 10/20/18 10/21/18 19:17 19:17 06:56 WBC 14.2 H 13.5 H RBC 3.35 L 3.30 L Hgb 10.4 L 10.1 L Hct 30.9 L 30.6 L MCV 92 93 MCH 31.1 30.7 MCHC 33.7 33.1 RDW 15.9 H 16.1 H Plt Count 310 302 Sodium 140.7 Potassium 2.9 L* Chloride 105 Carbon Dioxide 29 Anion Gap 7 BUN 6 L Creatinine 0.60 Est GFR ( Amer) > 60 Glucose 228 H Calcium 6.9 L* Magnesium 1.9 Total Bilirubin AST Alkaline Phosphatase Total Protein Albumin 10/21/18 06:56 WBC RBC Hgb Hct MCV MCH MCHC RDW Plt Count Sodium 140.3 Potassium 3.9 D Chloride 107 Carbon Dioxide 30 Anion Gap 3 L BUN 5 L Creatinine 0.59 Est GFR ( Amer) > 60 Glucose 173 H Calcium 6.9 L* Magnesium Total Bilirubin 0.3 AST 17 Alkaline Phosphatase 158 H Total Protein 5.1 L Albumin 2.2 L Impressions: PICC Line Insertion 10/05/18 00:00 IMPRESSION: SUCCESSFUL PLACEMENT OF A 5 FR SINGLE LUMEN 38 CM PICC IN THE RIGHT BASILIC VEIN. Chest X-Ray 10/07/18 00:00 IMPRESSION: No acute findings in the chest. A right-sided PICC line has been added. Tip overlies the SVC. Abdomen/Pelvis CT 10/11/18 00:00 IMPRESSION: Diffuse nonspecific colitis, similar to the prior exam with liquefied stool/diarrhea. No free air or free fluid. TECHNICAL DOCUMENTATION: Quality ID # [id number]: Final reports with documentation of one or more dose reduction techniques (e.g., Automated exposure control, adjustment of the mA and/or kV according to patient size, use of iterative reconstruction technique) copyright 2011 [employer]- All Rights Reserved Assessment & Plan - Diagnosis (1) Leukocytosis Qualifiers: Leukocytosis type: unspecified Qualified Code(s): D72.829 - Elevated white blood cell count, unspecified Is this a current diagnosis for this admission?: Yes (2) Colitis Is this a current diagnosis for this admission?: Yes - Time Time Spent with patient: 15-24 minutes - Inpatient Certification Medical Necessity: Need For IV Fluids, Need For Continuous Telemetry Monitoring, Risk of Complication if Not Cared For in Hospital - Plan Summary Plan Summary: Clinically appears to be improving with IV steroids Still awaiting bed at [facility] Will sign off. Call for questions.
--- NOTE | 2018-10-21 22:27 | PDOC PROGRESS REPORT ---
Subjective Progress Note for:: 10/21/18 Subjective:: Patient seen by the bedside, she seems to be responding to intravenous hydrocortisone, she may need Remicade intravenously, this medication is not formulary in the hospital, awaiting transfer to [facility] Reason For Visit: ACUTE COLITIS, INFECTIOUS, MALIGANT,ISCHEMIC Physical Exam Vital Signs: Temp Pulse Resp BP Pulse Ox 97.6 F 98 17 142/81 H 100 10/21/18 14:46 10/21/18 14:46 10/21/18 14:46 10/21/18 14:46 10/21/18 14:46 Intake & Output 10/20/18 10/21/18 10/22/18 06:59 06:59 06:59 Intake Total 1600 2360 1520 Output Total 200 2250 250 Balance 8462 146 3111 Weight 71.8 kg 76.5 kg Head exam: PRESENT: atraumatic, normocephalic Eye exam: PRESENT: conjunctiva pink, EOMI, PERRLA Ear exam: PRESENT: normal external ear exam Mouth exam: PRESENT: moist, tongue midline Neck exam: PRESENT: full ROM Respiratory exam: PRESENT: clear to auscultation mayra Cardiovascular exam: PRESENT: RRR, +S1, +S2 Pulses: PRESENT: normal dorsalis pedis pul, +2 pedal pulses bilateral Vascular exam: PRESENT: normal capillary refill GI/Abdominal exam: PRESENT: distended, normal bowel sounds, soft Rectal exam: PRESENT: deferred Neurological exam: PRESENT: alert, CN II-XII grossly intact Psychiatric exam: PRESENT: appropriate affect, normal mood Skin exam: PRESENT: dry, intact, warm Results Laboratory Results: 10/21/18 06:56 10/21/18 06:56 10/21/18 10/21/18 06:56 06:56 WBC 13.5 H RBC 3.30 L Hgb 10.1 L Hct 30.6 L MCV 93 MCH 30.7 MCHC 33.1 RDW 16.1 H Plt Count 302 Sodium 140.3 Potassium 3.9 D Chloride 107 Carbon Dioxide 30 Anion Gap 3 L BUN 5 L Creatinine 0.59 Est GFR ( Amer) > 60 Glucose 173 H Calcium 6.9 L* Total Bilirubin 0.3 AST 17 Alkaline Phosphatase 158 H Total Protein 5.1 L Albumin 2.2 L Impressions: PICC Line Insertion 10/05/18 00:00 IMPRESSION: SUCCESSFUL PLACEMENT OF A 5 FR SINGLE LUMEN 38 CM PICC IN THE RIGHT BASILIC VEIN. Chest X-Ray 10/07/18 00:00 IMPRESSION: No acute findings in the chest. A right-sided PICC line has been added. Tip overlies the SVC. Abdomen/Pelvis CT 10/11/18 00:00 IMPRESSION: Diffuse nonspecific colitis, similar to the prior exam with liquefied stool/diarrhea. No free air or free fluid. TECHNICAL DOCUMENTATION: Quality ID # [id number]: Final reports with documentation of one or more dose reduction techniques (e.g., Automated exposure control, adjustment of the mA and/or kV according to patient size, use of iterative reconstruction technique) copyright 2011 [employer]- All Rights Reserved Assessment & Plan - Diagnosis (1) Inflammatory bowel disease (ulcerative colitis) Qualifiers: Ulcerative colitis location: other ulcerative colitis Digestive disease complication type: with abscess Qualified Code(s): K51.814 - Other ulcerative colitis with abscess Is this a current diagnosis for this admission?: Yes Plan: Continue IV hydrocortisone infusion (2) Hypokalemia Is this a current diagnosis for this admission?: Yes Plan: Replace potassium (3) Abdominal aortic aneurysm (AAA) without rupture Is this a current diagnosis for this admission?: Yes (4) Deep vein thrombosis, upper right extremity Qualifiers: Affected thrombotic vein of extremity: other upper extremity vein Chronicity: acute Qualified Code(s): I82.621 - Acute embolism and thrombosis of deep veins of right upper extremity Is this a current diagnosis for this admission?: Yes Plan: Continue Lovenox
[2018-10-22] MEDS: NORMAL SALINE 10 ML SDV (SCHEDULED) IV SCH ×3 (00:16→21:45)
[2018-10-22] MEDS: INSULIN REG, HUMAN 100 UNIT/ML 3 ML VIAL (PYX) SUBCUT SCH ×4 (00:17→18:12)
[2018-10-22] MEDS: POTASSI CL 20 MEQ/D5NS 1L 1000 ML IV PRN ×2 (02:12→12:24)
[2018-10-22] MEDS: HYDROCORTISONE SOD SUCCINATE INJ/PF 100 MG/2 ML SDV IV SCH ×3 (05:27→21:49)
[2018-10-22] MEDS: ENOXAPARIN SODIUM INJ 80 MG/0.8 ML DISP.SYRIN SUBCUT SCH ×2 (05:27→18:13)
[2018-10-22 06:09] LABS: APPEARANCE,URINE CLEAR; BILIRUBIN,URINE NEGATIVE (NEGATIVE); COLOR,URINE YELLOW; GLUCOSE, URINE 50 mg/dL (NEGATIVE); KETONES,URINE NEGATIVE (NEGATIVE); LEUKOCYTE ESTERASE,URINE NEGATIVE (NEGATIVE); NITRITE,URINE NEGATIVE (NEGATIVE); PROTEIN,URINE NEGATIVE (NEGATIVE); URINE SPECIFIC GRAVITY 1.012; UROBILINOGEN,URINE NEGATIVE mg/dL (<2.0)
[2018-10-22] MEDS: MESALAMINE 400 MG CAPSULE.DR PO SCH ×3 (10:39→18:13)
--- NOTE | 2018-10-22 16:47 | PDOC PROGRESS REPORT ---
Subjective Progress Note for:: 10/22/18 Subjective:: Patient seen by the bedside, she seems to be responding to intravenous hydrocortisone, she may need Remicade intravenously, this medication is not formulary in the hospital, awaiting transfer to [facility] Reason For Visit: ACUTE COLITIS, INFECTIOUS, MALIGANT,ISCHEMIC Physical Exam Vital Signs: Temp Pulse Resp BP Pulse Ox 97.7 F 105 H 14 99/67 L 99 10/22/18 15:18 10/22/18 15:18 10/22/18 15:18 10/22/18 15:18 10/22/18 15:18 Intake & Output 10/21/18 10/22/18 10/23/18 06:59 06:59 06:59 Intake Total 2360 2503 1175 Output Total 2250 250 600 Balance 110 2253 575 Weight 76.5 kg Head exam: PRESENT: atraumatic, normocephalic Eye exam: PRESENT: PERRLA Neck exam: PRESENT: full ROM Respiratory exam: PRESENT: clear to auscultation mayra Cardiovascular exam: PRESENT: RRR, +S1, +S2 Vascular exam: PRESENT: normal capillary refill GI/Abdominal exam: PRESENT: normal bowel sounds, soft Rectal exam: PRESENT: deferred Neurological exam: PRESENT: alert, CN II-XII grossly intact Psychiatric exam: PRESENT: appropriate affect, normal mood Skin exam: PRESENT: dry, intact, warm. ABSENT: cyanosis, rash Results Laboratory Results: 10/21/18 06:56 10/21/18 06:56 10/22/18 05:44 Urine Color YELLOW Urine Appearance CLEAR Urine pH 7.0 Ur Specific [place] 1.012 Urine Protein NEGATIVE Urine Glucose (UA) 50 H Urine Ketones NEGATIVE Urine Blood NEGATIVE Urine Nitrite NEGATIVE Ur Leukocyte Esterase NEGATIVE Urine WBC (Auto) 0 Urine RBC (Auto) 0 Impressions: PICC Line Insertion 10/05/18 00:00 IMPRESSION: SUCCESSFUL PLACEMENT OF A 5 FR SINGLE LUMEN 38 CM PICC IN THE RIGHT BASILIC VEIN. Chest X-Ray 10/07/18 00:00 IMPRESSION: No acute findings in the chest. A right-sided PICC line has been added. Tip overlies the SVC. Abdomen/Pelvis CT 10/11/18 00:00 IMPRESSION: Diffuse nonspecific colitis, similar to the prior exam with liquefied stool/diarrhea. No free air or free fluid. TECHNICAL DOCUMENTATION: Quality ID # [id number]: Final reports with documentation of one or more dose reduction techniques (e.g., Automated exposure control, adjustment of the mA and/or kV according to patient size, use of iterative reconstruction technique) copyright 2011 [employer]- All Rights Reserved Assessment & Plan - Diagnosis (1) Inflammatory bowel disease (ulcerative colitis) Qualifiers: Ulcerative colitis location: other ulcerative colitis Digestive disease complication type: with abscess Qualified Code(s): K51.814 - Other ulcerative colitis with abscess Is this a current diagnosis for this admission?: Yes Plan: Continue IV hydrocortisone infusion (2) Hypokalemia Is this a current diagnosis for this admission?: Yes (3) Abdominal aortic aneurysm (AAA) without rupture Is this a current diagnosis for this admission?: Yes (4) Deep vein thrombosis, upper right extremity Qualifiers: Affected thrombotic vein of extremity: other upper extremity vein Chronicity: acute Qualified Code(s): I82.621 - Acute embolism and thrombosis of deep veins of right upper extremity Is this a current diagnosis for this admission?: Yes Plan: Continue Lovenox
[2018-10-22] MEDS ORDERED: NORMAL SALINE 250 ML IV ONE (17:30)
[2018-10-22] MEDS ORDERED: NORMAL SALINE 1000 ML 1,000 ML IV PRN (18:25)
[2018-10-22 18:31] LABS: HEMATOCRIT 19.7 % (36.0-47.0); MEAN CORPUSCULAR HEMOGLOBIN 30.9 pg (27.0-33.4); MEAN CORPUSCULAR HGB CONC 32.8 g/dL (32.0-36.0); MEAN CORPUSCULAR VOLUME 94 fl (80-97); PLATELET COUNT 264 10^3/uL (150-450); RED BLOOD COUNT 2.09 10^6/uL (3.72-5.28); RED CELL DISTRIBUTION WIDTH 16.6 % (11.5-14.0)
[2018-10-22 18:58] LABS: HEMOGLOBIN 6.5 g/dL (12.0-15.5)
[2018-10-22 18:59] LABS: ABSOLUTE LYMPHOCYTES# (MANUAL) 0.7 10^3/uL (0.5-4.7); ABSOLUTE MONOCYTES # (MANUAL) 0.2 10^3/uL (0.1-1.4); ANISOCYTOSIS 1+; BASOPHILS % (MANUAL) 0 % (0-2); EOSINOPHILS % (MANUAL) 0 % (0-6); LYMPHOCYTES % (MANUAL) 3 % (13-45); MONOCYTES % (MANUAL) 1 % (3-13); PLATELET COMMENT ADEQUATE; SEGMENTED NEUTROPHILS % (MAN) 96 % (42-78); TOTAL CELLS COUNTED 100; TOXIC GRANULATION 2+
[2018-10-23] MEDS: INSULIN REG, HUMAN 100 UNIT/ML 3 ML VIAL (PYX) SUBCUT SCH ×5 (01:18→23:29)
[2018-10-23] MEDS: HYDROCORTISONE SOD SUCCINATE INJ/PF 100 MG/2 ML SDV IV SCH ×3 (05:58→23:28)
[2018-10-23 07:00] LABS: ABSOLUTE LYMPHOCYTES (AUTO) 2.6 10^3/uL (0.5-4.7); ABSOLUTE MONOCYTES (AUTO) 1.2 10^3/uL (0.1-1.4); ABSOLUTE NEUT (AUTO) 13.1 10^3/uL (1.7-8.2); BASOPHILS % (AUTO) 0.2 % (0-2); EOSINOPHILS % (AUTO) 0.1 % (0-6); HEMATOCRIT 32.9 % (36.0-47.0); LYMPHOCYTES % (AUTO) 15.3 % (13-45); MEAN CORPUSCULAR HEMOGLOBIN 29.9 pg (27.0-33.4); MEAN CORPUSCULAR HGB CONC 33.9 g/dL (32.0-36.0); MONOCYTES % (AUTO) 6.9 % (3-13); PLATELET COUNT 225 10^3/uL (150-450); RED BLOOD COUNT 3.73 10^6/uL (3.72-5.28); SEGMENTED NEUTROPHILS % (AUTO) 77.5 % (42-78); TOTAL CELLS COUNTED % (AUTO) 100 %; WHITE BLOOD COUNT 16.9 10^3/uL (4.0-10.5)
[2018-10-23 07:10] LABS: HEMOGLOBIN 11.2 g/dL (12.0-15.5); MEAN CORPUSCULAR VOLUME 88 fl (80-97)
[2018-10-23] MEDS: MESALAMINE 400 MG CAPSULE.DR PO SCH ×4 (10:56→18:29)
[2018-10-23] MEDS: NORMAL SALINE 10 ML SDV (SCHEDULED) IV SCH ×2 (10:57→23:29)
[2018-10-23] MEDS: TIOTROPIUM BROMIDE DPI 5 CAP/KIT (18 MCG/CAP) IH SCH (11:03)
--- NOTE | 2018-10-23 12:38 | PDOC PROGRESS REPORT ---
Subjective Progress Note for:: 10/23/18 Subjective:: Yesterday patient developed acute blood loss with severe low blood pressure, she required fluid challenge with normal saline, stat CBC, hemoglobin was 6.5, she required 2 units of packed red blood cells. She is on Lovenox for the management of acute DVT of the upper extremity associated with central line. Reason For Visit: ACUTE COLITIS, INFECTIOUS, MALIGANT,ISCHEMIC Physical Exam Vital Signs: Temp Pulse Resp BP Pulse Ox 98.0 F 101 H 14 116/66 97 10/23/18 08:26 10/23/18 08:26 10/23/18 08:00 10/23/18 08:26 10/23/18 08:26 Intake & Output 10/22/18 10/23/18 10/24/18 06:59 06:59 06:59 Intake Total 2503 3538 1000 Output Total 250 600 Balance 2253 2938 1000 Weight 80 kg General appearance: PRESENT: no acute distress Eye exam: PRESENT: PERRLA Respiratory exam: PRESENT: clear to auscultation mayra Cardiovascular exam: PRESENT: +S1, +S2 GI/Abdominal exam: PRESENT: soft Neurological exam: PRESENT: alert Results Laboratory Results: 10/23/18 06:46 10/21/18 06:56 10/22/18 10/22/18 10/23/18 18:00 19:38 06:46 WBC 22.0 H 16.9 H RBC 2.09 L 3.73 Hgb 6.5 L D 11.2 L D Hct 19.7 L 32.9 L MCV 94 88 D MCH 30.9 29.9 MCHC 32.8 33.9 RDW 16.6 H 16.0 H Plt Count 264 225 Seg Neutrophils % Not Reportable 77.5 Blood Type O POSITIVE Antibody Screen NEGATIVE Impressions: PICC Line Insertion 10/05/18 00:00 IMPRESSION: SUCCESSFUL PLACEMENT OF A 5 FR SINGLE LUMEN 38 CM PICC IN THE RIGHT BASILIC VEIN. Chest X-Ray 10/07/18 00:00 IMPRESSION: No acute findings in the chest. A right-sided PICC line has been added. Tip overlies the SVC. Abdomen/Pelvis CT 10/11/18 00:00 IMPRESSION: Diffuse nonspecific colitis, similar to the prior exam with liquefied stool/diarrhea. No free air or free fluid. TECHNICAL DOCUMENTATION: Quality ID # [id number]: Final reports with documentation of one or more dose reduction techniques (e.g., Automated exposure control, adjustment of the mA and/or kV according to patient size, use of iterative reconstruction technique) copyright 2011 [employer]- All Rights Reserved Assessment & Plan - Diagnosis (1) Inflammatory bowel disease (ulcerative colitis) Qualifiers: Ulcerative colitis location: other ulcerative colitis Digestive disease complication type: with abscess Qualified Code(s): K51.814 - Other ulcerative colitis with abscess Is this a current diagnosis for this admission?: Yes (2) Hypokalemia Is this a current diagnosis for this admission?: Yes (3) Abdominal aortic aneurysm (AAA) without rupture Is this a current diagnosis for this admission?: Yes (4) Deep vein thrombosis, upper right extremity Qualifiers: Affected thrombotic vein of extremity: other upper extremity vein Chronicity: acute Qualified Code(s): I82.621 - Acute embolism and thrombosis of deep veins of right upper extremity Is this a current diagnosis for this admission?: Yes (5) Acute blood loss anemia Is this a current diagnosis for this admission?: Yes Plan: She had acute blood loss anemia, she required blood transfusion, the cause of the acute blood loss is the Lovenox, the Lovenox to be discontinued, the central line to be discontinued
[2018-10-24 05:33] LABS: HEMATOCRIT 29.8 % (36.0-47.0); HEMOGLOBIN 10.3 g/dL (12.0-15.5); MEAN CORPUSCULAR HEMOGLOBIN 30.3 pg (27.0-33.4); MEAN CORPUSCULAR HGB CONC 34.5 g/dL (32.0-36.0); MEAN CORPUSCULAR VOLUME 88 fl (80-97); PLATELET COUNT 209 10^3/uL (150-450); RED BLOOD COUNT 3.41 10^6/uL (3.72-5.28); RED CELL DISTRIBUTION WIDTH 16.3 % (11.5-14.0); WHITE BLOOD COUNT 13.2 10^3/uL (4.0-10.5)
[2018-10-24] MEDS: INSULIN REG, HUMAN 100 UNIT/ML 3 ML VIAL (PYX) SUBCUT SCH ×3 (06:29→17:38)
[2018-10-24] MEDS: HYDROCORTISONE SOD SUCCINATE INJ/PF 100 MG/2 ML SDV IV SCH ×3 (06:30→21:33)
[2018-10-24] MEDS: NORMAL SALINE 10 ML SDV (SCHEDULED) IV SCH ×2 (12:40→21:16)
[2018-10-24] MEDS: TIOTROPIUM BROMIDE DPI 5 CAP/KIT (18 MCG/CAP) IH SCH (14:12)
[2018-10-24] MEDS: MESALAMINE 400 MG CAPSULE.DR PO SCH ×3 (14:12→17:36)
--- NOTE | 2018-10-24 20:14 | PDOC PROGRESS REPORT ---
Subjective Progress Note for:: 10/24/18 Subjective:: Patient seen by the bedside status post blood transfusion Reason For Visit: ACUTE COLITIS, INFECTIOUS, MALIGANT,ISCHEMIC Physical Exam Vital Signs: Temp Pulse Resp BP Pulse Ox 98.7 F 99 16 106/67 98 10/24/18 17:17 10/24/18 19:00 10/24/18 17:17 10/24/18 17:17 10/24/18 17:17 Intake & Output 10/23/18 10/24/18 10/25/18 06:59 06:59 06:59 Intake Total 3538 1000 220 Output Total 600 1001 4 Balance 2938 -1 216 Weight 80 kg 72.5 kg General appearance: PRESENT: no acute distress Eye exam: PRESENT: PERRLA Respiratory exam: PRESENT: clear to auscultation mayra Cardiovascular exam: PRESENT: +S1, +S2 GI/Abdominal exam: PRESENT: soft Neurological exam: PRESENT: alert Results Laboratory Results: 10/24/18 04:48 10/21/18 06:56 10/24/18 04:48 WBC 13.2 H RBC 3.41 L Hgb 10.3 L Hct 29.8 L MCV 88 MCH 30.3 MCHC 34.5 RDW 16.3 H Plt Count 209 Impressions: PICC Line Insertion 10/05/18 00:00 IMPRESSION: SUCCESSFUL PLACEMENT OF A 5 FR SINGLE LUMEN 38 CM PICC IN THE RIGHT BASILIC VEIN. Chest X-Ray 10/07/18 00:00 IMPRESSION: No acute findings in the chest. A right-sided PICC line has been added. Tip overlies the SVC. Abdomen/Pelvis CT 10/11/18 00:00 IMPRESSION: Diffuse nonspecific colitis, similar to the prior exam with liquefied stool/diarrhea. No free air or free fluid. TECHNICAL DOCUMENTATION: Quality ID # [id number]: Final reports with documentation of one or more dose reduction techniques (e.g., Automated exposure control, adjustment of the mA and/or kV according to patient size, use of iterative reconstruction technique) copyright 2011 [employer]- All Rights Reserved Assessment & Plan - Diagnosis (1) Inflammatory bowel disease (ulcerative colitis) Qualifiers: Ulcerative colitis location: other ulcerative colitis Digestive disease complication type: with abscess Qualified Code(s): K51.814 - Other ulcerative colitis with abscess Is this a current diagnosis for this admission?: Yes (2) Hypokalemia Is this a current diagnosis for this admission?: Yes (3) Abdominal aortic aneurysm (AAA) without rupture Is this a current diagnosis for this admission?: Yes (4) Deep vein thrombosis, upper right extremity Qualifiers: Affected thrombotic vein of extremity: other upper extremity vein Chronicity: acute Qualified Code(s): I82.621 - Acute embolism and thrombosis of deep veins of right upper extremity Is this a current diagnosis for this admission?: Yes (5) Acute blood loss anemia Is this a current diagnosis for this admission?: Yes - Plan Summary Plan Summary: Continue treatment
[2018-10-25] MEDS: INSULIN REG, HUMAN 100 UNIT/ML 3 ML VIAL (PYX) SUBCUT SCH ×4 (00:40→18:10)
[2018-10-25] MEDS: HYDROCORTISONE SOD SUCCINATE INJ/PF 100 MG/2 ML SDV IV SCH ×2 (05:57→13:38)
[2018-10-25] MEDS: NORMAL SALINE 10 ML SDV (SCHEDULED) IV SCH ×2 (09:25→21:14)
[2018-10-25] MEDS: MESALAMINE 400 MG CAPSULE.DR PO SCH ×3 (09:28→18:10)
[2018-10-25] MEDS: TIOTROPIUM BROMIDE DPI 5 CAP/KIT (18 MCG/CAP) IH SCH (09:28)
--- NOTE | 2018-10-25 19:54 | PDOC PROGRESS REPORT ---
Subjective Progress Note for:: 10/25/18 Subjective:: Overall the patient has been doing better. She has had about 2 bowel movements today and they are formed. She has not been observing for rectal bleeding. She only has mild abdominal discomfort. She is tolerating a diet. She had 2 units of blood transfusion 2 days ago and her hemoglobin was 10.3 yesterday with normal platelet count. She has been receiving hydrocortisone IV for the last week and will be starting prednisone 60 mg tomorrow. She remains on mesalamine Reason For Visit: ACUTE COLITIS, INFECTIOUS, MALIGANT,ISCHEMIC Physical Exam Vital Signs: Temp Pulse Resp BP Pulse Ox 98.6 F 95 16 117/65 93 10/25/18 16:46 10/25/18 16:46 10/25/18 16:46 10/25/18 16:46 10/25/18 16:46 Intake & Output 10/24/18 10/25/18 10/26/18 06:59 06:59 06:59 Intake Total 1000 220 356 Output Total 1001 4 Balance -1 216 356 Weight 72.5 kg 75.8 kg Exam: General: Patient is alert and looks well. HEENT: There is no pallor or jaundice. PERRLA. Oropharynx normal Respiratory: No chest deformity. No respiratory distress. Chest wall palpitation was unremarkable. Breath sounds were normal Cardiovascular: Heart sounds 1 and 2 normal with no murmurs. Abdominal: Not distended. Soft and nontender. Liver and spleen not palpable. No ascites demonstrated. Bowel sounds active. Rectal examination was deferred. Extremities: No edema Neurological: Alert and oriented x4. Grossly nonfocal. Normal speech Skin: No significant rash Psychological: Normal affect Results Laboratory Results: 10/24/18 04:48 10/21/18 06:56 Impressions: PICC Line Insertion 10/05/18 00:00 IMPRESSION: SUCCESSFUL PLACEMENT OF A 5 FR SINGLE LUMEN 38 CM PICC IN THE RIGHT BASILIC VEIN. Chest X-Ray 10/07/18 00:00 IMPRESSION: No acute findings in the chest. A right-sided PICC line has been added. Tip overlies the SVC. Abdomen/Pelvis CT 10/11/18 00:00 IMPRESSION: Diffuse nonspecific colitis, similar to the prior exam with liquefied stool/diarrhea. No free air or free fluid. TECHNICAL DOCUMENTATION: Quality ID # [id number]: Final reports with documentation of one or more dose reduction techniques (e.g., Automated exposure control, adjustment of the mA and/or kV according to patient size, use of iterative reconstruction technique) copyright 2011 [employer]- All Rights Reserved Assessment & Plan - Diagnosis (1) Ulcerative pancolitis with complication Is this a current diagnosis for this admission?: Yes Plan: She has ulcerative colitis based on her radiologic findings, and significant improvement with steroids. Infectious etiology has been ruled out. She should continue with prednisone at 60 mg daily for 10 days, 40 mg daily for 2 weeks, 30 mg daily for 1 week, and then reduce dose by 5 mg every week over the next 5wks. She should stay on 4.8 g of mesalamine every day. I will follow her up in the office. (2) Colitis Is this a current diagnosis for this admission?: Yes (3) Abnormal finding on GI tract imaging Is this a current diagnosis for this admission?: Yes (4) Abdominal aortic aneurysm (AAA) without rupture Is this a current diagnosis for this admission?: Yes
[2018-10-25] MEDS: SERTRALINE HCL 50 MG TABLET PO SCH (21:15)
[2018-10-25] MEDS: PREDNISONE 20 MG TABLET PO SCH (21:16)
--- NOTE | 2018-10-25 21:40 | PDOC PROGRESS REPORT ---
Subjective Progress Note for:: 10/25/18 Subjective:: Patient seen by the bedside, start prednisone Reason For Visit: ACUTE COLITIS, INFECTIOUS, MALIGANT,ISCHEMIC Physical Exam Vital Signs: Temp Pulse Resp BP Pulse Ox 98.6 F 95 16 117/65 93 10/25/18 16:46 10/25/18 16:46 10/25/18 16:46 10/25/18 16:46 10/25/18 16:46 Intake & Output 10/24/18 10/25/18 10/26/18 06:59 06:59 06:59 Intake Total 1000 220 356 Output Total 1001 4 Balance -1 216 356 Weight 72.5 kg 75.8 kg General appearance: PRESENT: no acute distress Eye exam: PRESENT: PERRLA Respiratory exam: PRESENT: clear to auscultation mayra Cardiovascular exam: PRESENT: +S1, +S2 GI/Abdominal exam: PRESENT: soft Neurological exam: PRESENT: alert Results Laboratory Results: 10/24/18 04:48 10/21/18 06:56 Impressions: PICC Line Insertion 10/05/18 00:00 IMPRESSION: SUCCESSFUL PLACEMENT OF A 5 FR SINGLE LUMEN 38 CM PICC IN THE RIGHT BASILIC VEIN. Chest X-Ray 10/07/18 00:00 IMPRESSION: No acute findings in the chest. A right-sided PICC line has been added. Tip overlies the SVC. Abdomen/Pelvis CT 10/11/18 00:00 IMPRESSION: Diffuse nonspecific colitis, similar to the prior exam with liquefied stool/diarrhea. No free air or free fluid. TECHNICAL DOCUMENTATION: Quality ID # [id number]: Final reports with documentation of one or more dose reduction techniques (e.g., Automated exposure control, adjustment of the mA and/or kV according to patient size, use of iterative reconstruction technique) copyright 2010 [employer]- All Rights Reserved Assessment & Plan - Diagnosis (1) Inflammatory bowel disease (ulcerative colitis) Qualifiers: Ulcerative colitis location: other ulcerative colitis Digestive disease complication type: with abscess Qualified Code(s): K51.814 - Other ulcerative colitis with abscess Is this a current diagnosis for this admission?: Yes (2) Hypokalemia Is this a current diagnosis for this admission?: Yes (3) Abdominal aortic aneurysm (AAA) without rupture Is this a current diagnosis for this admission?: Yes (4) Deep vein thrombosis, upper right extremity Qualifiers: Affected thrombotic vein of extremity: other upper extremity vein Chronicity: acute Qualified Code(s): I82.621 - Acute embolism and thrombosis of deep veins of right upper extremity Is this a current diagnosis for this admission?: Yes (5) Acute blood loss anemia Is this a current diagnosis for this admission?: Yes
[2018-10-26] MEDS: INSULIN REG, HUMAN 100 UNIT/ML 3 ML VIAL (PYX) SUBCUT SCH ×4 (00:44→19:11)
[2018-10-26 05:49] LABS: HEMATOCRIT 29.5 % (36.0-47.0); HEMOGLOBIN 10.2 g/dL (12.0-15.5); MEAN CORPUSCULAR HEMOGLOBIN 30.7 pg (27.0-33.4); MEAN CORPUSCULAR HGB CONC 34.5 g/dL (32.0-36.0); MEAN CORPUSCULAR VOLUME 89 fl (80-97); PLATELET COUNT 220 10^3/uL (150-450); RED BLOOD COUNT 3.33 10^6/uL (3.72-5.28); RED CELL DISTRIBUTION WIDTH 16.6 % (11.5-14.0); WHITE BLOOD COUNT 10.3 10^3/uL (4.0-10.5)
[2018-10-26] MEDS: NORMAL SALINE 10 ML SDV (SCHEDULED) IV SCH ×2 (09:56→21:23)
[2018-10-26] MEDS: PREDNISONE 20 MG TABLET PO SCH (10:01)
[2018-10-26] MEDS: MESALAMINE 400 MG CAPSULE.DR PO SCH ×3 (10:01→18:06)
[2018-10-26] MEDS: TIOTROPIUM BROMIDE DPI 5 CAP/KIT (18 MCG/CAP) IH SCH (10:01)
[2018-10-26] MEDS: SERTRALINE HCL 50 MG TABLET PO SCH (10:01)
[2018-10-26] MEDS: PROMETHAZINE HCL INJ 25 MG/1 ML VIAL IV PRN (11:58)
[2018-10-26] MEDS: MIRTAZAPINE 15 MG TABLET PO SCH (18:06)
--- NOTE | 2018-10-26 19:41 | PDOC PROGRESS REPORT ---
Subjective Progress Note for:: 10/26/18 Subjective:: Patient seen by the bedside, yesterday she was started on p.o. prednisone 60 mg p.o. daily she will continue on present strength, she has no appetite, start Remeron 7.5 mg to stimulate appetite, hopefully discharge in a day or 2, she will need physical therapy, no need for anymore transfer to [facility], she will be discharged home on p.o. prednisone to follow outpatient with GI Dr. Martin Reason For Visit: ACUTE COLITIS, INFECTIOUS, MALIGANT,ISCHEMIC Physical Exam Vital Signs: Temp Pulse Resp BP Pulse Ox 97.5 F 88 16 115/63 93 10/26/18 17:07 10/26/18 17:07 10/26/18 17:07 10/26/18 17:07 10/26/18 17:07 Intake & Output 10/25/18 10/26/18 10/27/18 06:59 06:59 06:59 Intake Total 220 456 240 Output Total 4 500 Balance 216 -44 240 Weight 75.8 kg 75.7 kg General appearance: PRESENT: no acute distress Eye exam: PRESENT: PERRLA Respiratory exam: PRESENT: clear to auscultation mayra Cardiovascular exam: PRESENT: +S1, +S2 GI/Abdominal exam: PRESENT: soft Neurological exam: PRESENT: alert Results Laboratory Results: 10/26/18 05:18 10/21/18 06:56 10/26/18 05:18 WBC 10.3 RBC 3.33 L Hgb 10.2 L Hct 29.5 L MCV 89 MCH 30.7 MCHC 34.5 RDW 16.6 H Plt Count 220 Impressions: PICC Line Insertion 10/05/18 00:00 IMPRESSION: SUCCESSFUL PLACEMENT OF A 5 FR SINGLE LUMEN 38 CM PICC IN THE RIGHT BASILIC VEIN. Chest X-Ray 10/07/18 00:00 IMPRESSION: No acute findings in the chest. A right-sided PICC line has been added. Tip overlies the SVC. Abdomen/Pelvis CT 10/11/18 00:00 IMPRESSION: Diffuse nonspecific colitis, similar to the prior exam with liquefied stool/diarrhea. No free air or free fluid. TECHNICAL DOCUMENTATION: Quality ID # [id number]: Final reports with documentation of one or more dose reduction techniques (e.g., Automated exposure control, adjustment of the mA and/or kV according to patient size, use of iterative reconstruction technique) copyright 2011 [employer]- All Rights Reserved Assessment & Plan - Diagnosis (1) Inflammatory bowel disease (ulcerative colitis) Qualifiers: Ulcerative colitis location: other ulcerative colitis Digestive disease c omplication type: with abscess Qualified Code(s): K51.814 - Other ulcerative colitis with abscess Is this a current diagnosis for this admission?: Yes Plan: discontinue IV Hydrocortisone ,contiue PO prednisone 60 mg POQD (2) Hypokalemia Is this a current diagnosis for this admission?: Yes (3) Abdominal aortic aneurysm (AAA) without rupture Is this a current diagnosis for this admission?: Yes (4) Deep vein thrombosis, upper right extremity Qualifiers: Affected thrombotic vein of extremity: other upper extremity vein Chronicity: acute Qualified Code(s): I82.621 - Acute embolism and thrombosis of deep veins of right upper extremity Is this a current diagnosis for this admission?: Yes Plan: discontinue lovenox (5) Acute blood loss anemia Is this a current diagnosis for this admission?: Yes
[2018-10-27] MEDS: INSULIN REG, HUMAN 100 UNIT/ML 3 ML VIAL (PYX) SUBCUT SCH ×5 (00:05→23:45)
[2018-10-27] MEDS: NORMAL SALINE 10 ML SDV (SCHEDULED) IV SCH ×2 (09:00→21:53)
[2018-10-27] MEDS: MESALAMINE 400 MG CAPSULE.DR PO SCH ×3 (09:28→17:43)
[2018-10-27] MEDS: PREDNISONE 20 MG TABLET PO SCH (09:28)
[2018-10-27] MEDS: TIOTROPIUM BROMIDE DPI 5 CAP/KIT (18 MCG/CAP) IH SCH (09:28)
[2018-10-27] MEDS: SERTRALINE HCL 50 MG TABLET PO SCH (09:28)
[2018-10-27 09:39] LABS: ABSOLUTE LYMPHOCYTES (AUTO) 1.2 10^3/uL (0.5-4.7); ABSOLUTE MONOCYTES (AUTO) 0.6 10^3/uL (0.1-1.4); ABSOLUTE NEUT (AUTO) 8.5 10^3/uL (1.7-8.2); BASOPHILS % (AUTO) 0.1 % (0-2); EOSINOPHILS % (AUTO) 0.1 % (0-6); HEMATOCRIT 31.1 % (36.0-47.0); HEMOGLOBIN 10.6 g/dL (12.0-15.5); LYMPHOCYTES % (AUTO) 11.3 % (13-45); MEAN CORPUSCULAR HEMOGLOBIN 30.3 pg (27.0-33.4); MEAN CORPUSCULAR HGB CONC 33.9 g/dL (32.0-36.0); MEAN CORPUSCULAR VOLUME 90 fl (80-97); MONOCYTES % (AUTO) 5.4 % (3-13); PLATELET COUNT 261 10^3/uL (150-450); RED BLOOD COUNT 3.48 10^6/uL (3.72-5.28); RED CELL DISTRIBUTION WIDTH 16.6 % (11.5-14.0); SEGMENTED NEUTROPHILS % (AUTO) 83.1 % (42-78); TOTAL CELLS COUNTED % (AUTO) 100 %; WHITE BLOOD COUNT 10.2 10^3/uL (4.0-10.5)
[2018-10-27 10:07] LABS: ALBUMIN 2.4 g/dL (3.5-5.0); ALKALINE PHOSPHATASE 164 U/L (38-126); ANION GAP 5 (5-19); ASPARTATE AMINO TRANSFERASE 17 U/L (14-36); BILIRUBIN,DIRECT 0.3 mg/dL (0.0-0.4); BILIRUBIN,TOTAL 0.7 mg/dL (0.2-1.3); BLOOD UREA NITROGEN 9 mg/dL (7-20); CALCIUM 7.5 mg/dL (8.4-10.2); CARBON DIOXIDE 33 mmol/L (22-30); CHLORIDE 104 mmol/L (98-107); GLUCOSE 118 mg/dL (75-110); TOTAL PROTEIN 5.4 g/dL (6.3-8.2)
[2018-10-27 10:10] LABS: POTASSIUM 2.1 mmol/L (3.6-5.0)
[2018-10-27] MEDS ORDERED: POTASSIUM CHLORIDE 20 MEQ PACKET PO SCH (11:00)
[2018-10-27] MEDS ORDERED: ONDANSETRON HCL INJ/PF 4 MG/2 ML SDV IV PRN (11:38)
[2018-10-27] MEDS: POTASSIUM CHLORIDE 10 MEQ CAPSULE.ER PO SCH ×2 (14:10→15:37)
[2018-10-27] MEDS: MIRTAZAPINE 15 MG TABLET PO SCH (17:43)
--- NOTE | 2018-10-27 21:42 | PDOC DISCHARGE SUMMARY ---
General - Admit/Disc Date/PCP Admission Date/Primary Care Provider: 10/01/18 18:56 ARTIS VENEGAS MD Discharge Date: 10/28/18 - Discharge Diagnosis (1) Inflammatory bowel disease (ulcerative colitis) Is this a current diagnosis for this admission?: Yes (2) Hypokalemia Is this a current diagnosis for this admission?: Yes (3) Abdominal aortic aneurysm (AAA) without rupture Is this a current diagnosis for this admission?: Yes (4) Deep vein thrombosis, upper right extremity Is this a current diagnosis for this admission?: Yes (5) Acute blood loss anemia Is this a current diagnosis for this admission?: Yes (6) Major depression Is this a current diagnosis for this admission?: Yes - Additional Information Resuscitation Status: Full Code Prescriptions: Mesalamine [Asacol Sr 400 mg Capsule] 800 mg PO TID #90 capsule. Prednisone [Deltasone 20 mg Tablet] 60 mg PO DAILY #30 tablet Mirtazapine [Remeron 15 mg Tablet] 7.5 mg PO QPM #90 tablet Sertraline HCl [Zoloft 50 mg Tablet] 50 mg PO DAILY #90 tablet Home Medications: Pravastatin Sodium [Pravachol] 10 mg PO QHS 05/18/18 Tiotropium Stetson [Spiriva Handihaler 5 Cap/Kit (18 Mcg/Cap)] 1 cap IH DAILY 05/18/18 Mesalamine [Asacol Sr 400 mg Capsule] 800 mg PO TID #90 capsule. 10/27/18 Mirtazapine [Remeron 15 mg Tablet] 7.5 mg PO QPM #90 tablet 10/27/18 Prednisone [Deltasone 20 mg Tablet] 60 mg PO DAILY #30 tablet 10/27/18 Sertraline HCl [Zoloft 50 mg Tablet] 50 mg PO DAILY #90 tablet 10/27/18 Tiotropium Stetson [Spiriva Handihaler 5 Cap/Kit (18 Mcg/Cap)] 1 cap IH DAILY kit 10/27/18 History of Present Illness History of Present Illness: NAN ALMEIDA is a 73 year old female, she was admitted initially on 09/27/2018 when she presented with GI symptoms, abdominal pain, bloody diarrhea, she also had a CAT scan of the abdomen and pelvis that demonstrated thickening of the ascending colon, she was diagnosed with colitis, treated with IV antibiotic ciprofloxacin and Flagyl, she improved in 24 hours she was discharged home on 09/28/2018 on p.o. antibiotic, she returned back to the emergency room with complaint of persistent vomiting, abdominal pain and diarrhea. She said she is not able to keep any food down for the last 3 days she been vomiting persistently. In the emergency room she was evaluated a repeat CAT scan of the abdomen and pelvis was done it demonstrated diffuse wall thickening of the colon with hyperenhancement, increased compared to the previous CT scan that was done on 09/27/2018. Hospital Course Hospital Course: Patient was admitted for the management of right sided abdominal pain and bloody diarrhea. Initially it was felt that this was infectious colitis, she was empirically treated with IV antibiotic without much improvement, patient condition continue to deteriorate clinically. Ischemic colitis was suspected as a potential etiology of her symptoms, consultation was requested from surgery, repeat CAT scan of the abdomen demonstrated worsening inflammatory process of the colon. Initially the inflammation was confined to the ascending colon subsequent CT scan demonstrated involvement of theTransverse and distal colon.Initially when ischemic colitis was suspected it was decided to keep her n.p.o. continue antibiotic and initiate TPN. Patient had anorexia with diminished appetite requiring TPN, a central line was placed in the right subclavian vein.This was complicated with deep vein thrombosis of the right subclavian vein requiring subcu Lovenox.Patient condition continues to deteriorate, the option of total colectomy was not appealing to the surgeon, it was felt that conservative approach should continue so she was continue on IV antibiotic n.p.o., pain control, the stool study was negative for infection, consistently showing blood. She had episode of hypokalemia multiple times most likely from GI losses from the diarrhea and bloody stooL I requested consultation from GI Dr. Martin, she underwent colonoscopy, he was only able to view 25 cm length of the colon and he found ulceration with pseudomembranous colitis, he thought this could be C. difficile colitis or ulcerative colitis recommended p.o. vancomycin pending stool study. Stool study negative for C. difficile toxin.The pathology of the specimen that was biopsied from the colon demonstrated crypt abscesses all consistent with ulcerative colitis. She was then started on intravenous hydrocortisone 70 mg IV every 8 and also mesalamine tablet. She showed improvement on this regimen.After few days of IV hydrocortisone, this was changed to p.o. prednisone then patient condition was seen again, the surgeon at this point revisited the issue of total colectomy that was when I called [facility] for transfer. [facility] accepted patient in transfer but there was no bed available so she was kept in the facility on IV hydrocortisone patient condition began to show improvement on IV consulted GI negative region he suggested that the prednisone should be increased to 60 mg p.o. daily. Remicade infusion was considered as an option but the GI physician at [facility] I suggested this to Dr. Martin he felt it is not particularly necessary At this time.She showed improvement. She had episode of acute GI blood loss that required blood transfusion the blood pressure dropped to 60 systolic.Because of the acute blood loss the Lovenox was discontinued and the central line was discontinued ,DVT of the upper extremity was provoked by the central line, because it was difficult to anticoagulate this patient due to continued GI bleed with a background of ulcerative colitis, the central line was discontinued and the anticoagulant was discontinued.She will be discharged on prednisone 60 mg p.o. daily, mesalamine,She was also started on antidepressant, Zoloft and also Remeron to stimulate appetite Physical Exam Vital Signs: Temp Pulse Resp BP Pulse Ox 98.5 F 92 20 118/62 93 10/27/18 19:44 10/27/18 19:44 10/27/18 19:44 10/27/18 19:44 10/27/18 19:44 Intake & Output 10/26/18 10/27/18 10/28/18 06:59 06:59 06:59 Intake Total 456 642 500 Output Total 500 300 Balance -44 642 200 Weight 75.7 kg 73 kg General appearance: PRESENT: no acute distress, well-developed, well-nourished Head exam: PRESENT: atraumatic, normocephalic Eye exam: PRESENT: conjunctiva pink, EOMI, PERRLA. ABSENT: scleral icterus Ear exam: PRESENT: normal external ear exam Mouth exam: PRESENT: moist, tongue midline Neck exam: PRESENT: full ROM Respiratory exam: PRESENT: clear to auscultation mayra Cardiovascular exam: PRESENT: RRR, +S1, +S2 Pulses: PRESENT: normal dorsalis pedis pul, +2 pedal pulses bilateral Vascular exam: PRESENT: normal capillary refill GI/Abdominal exam: PRESENT: normal bowel sounds, soft Rectal exam: PRESENT: deferred Neurological exam: PRESENT: alert, awake, oriented to person, oriented to place, oriented to time, oriented to situation, CN II-XII grossly intact Psychiatric exam: PRESENT: appropriate affect, normal mood Skin exam: PRESENT: dry, intact, warm Results Laboratory Results: 10/27/18 09:17 10/27/18 09:17 10/27/18 10/27/18 09: 09:17 WBC 10.2 RBC 3.48 L Hgb 10.6 L Hct 31.1 L MCV 90 MCH 30.3 MCHC 33.9 RDW 16.6 H Plt Count 261 Seg Neutrophils % 83.1 H Sodium 141.7 Potassium 2.1 L* Chloride 104 Carbon Dioxide 33 H Anion Gap 5 BUN 9 Creatinine 0.72 Est GFR ( Amer) > 60 Glucose 118 H Calcium 7.5 L Total Bilirubin 0.7 AST 17 Alkaline Phosphatase 164 H Total Protein 5.4 L Albumin 2.4 L Impressions: PICC Line Insertion 10/05/18 00:00 IMPRESSION: SUCCESSFUL PLACEMENT OF A 5 FR SINGLE LUMEN 38 CM PICC IN THE RIGHT BASILIC VEIN. Chest X-Ray 10/07/18 00:00 IMPRESSION: No acute findings in the chest. A right-sided PICC line has been added. Tip overlies the SVC. Abdomen/Pelvis CT 10/11/18 00:00 IMPRESSION: Diffuse nonspecific colitis, similar to the prior exam with liquefied stool/diarrhea. No free air or free fluid. TECHNICAL DOCUMENTATION: Quality ID # 436: Final reports with documentation of one or more dose reduction techniques (e.g., Automated exposure control, adjustment of the mA and/or kV according to patient size, use of iterative reconstruction technique) copyright 2011 [employer]- All Rights Reserved Qualifiers - * PATIENT BEING DISCHARGED WITH ANY OF THE FOLLOWING DIAGNOSIS: No VTE patient discharged on overlapping Therapy?: No Reason(s) for not prescribing Overlap Therapy:: Not indicated Stroke Pt being discharged on Anti-thrombolytic therapy?: No Reason(s) for not prescribing Anti-thrombolytic therapy:: Not indicated Stroke Pt being discharged on Anti-coagulation therapy?: No Reason(s) for not prescribing Anti-coagulation therapy:: Not indicated Stroke Pt being discharged on Statins?: No Reason(s) for not prescribing Statins therapy:: Not indicated MT Pt being discharged on Aspirin therapy?: No Reason(s) for not prescribing Aspirin therapy:: Not indicated MT Pt being discharged on Statins?: No Reason(s) for not prescribing Statin therapy:: Not indicated MT Pt discharged ACEI/ARBS?: No Reason(s) for not prescribing ACEI/ARBS:: Not indicated Acute Heart Failure - Is this a Heart Failure Patient?: No d) Discharged on evidence-based Beta dede(carvedilol, sustained release metoprolol succinate, or bisoprolol)?: Yes
--- NOTE | 2018-10-27 21:45 | PDOC PROGRESS REPORT ---
Subjective Progress Note for:: 10/27/18 Subjective:: Patient seen by the bedside,She continues to show improvement, she has hypokalemia, this is been replaced, hopefully discharge home tomorrow Reason For Visit: ACUTE COLITIS, INFECTIOUS, MALIGANT,ISCHEMIC Physical Exam Vital Signs: Temp Pulse Resp BP Pulse Ox 98.5 F 92 20 118/62 93 10/27/18 19:44 10/27/18 19:44 10/27/18 19:44 10/27/18 19:44 10/27/18 19:44 Intake & Output 10/26/18 10/27/18 10/28/18 06:59 06:59 06:59 Intake Total 456 642 500 Output Total 500 300 Balance -44 642 200 Weight 75.7 kg 73 kg General appearance: PRESENT: no acute distress Eye exam: PRESENT: PERRLA Respiratory exam: PRESENT: clear to auscultation mayra Cardiovascular exam: PRESENT: +S1, +S2 GI/Abdominal exam: PRESENT: soft Neurological exam: PRESENT: alert Results Laboratory Results: 10/27/18 09:17 10/27/18 09:17 10/27/18 10/27/18 09:17 09:17 WBC 10.2 RBC 3.48 L Hgb 10.6 L Hct 31.1 L MCV 90 MCH 30.3 MCHC 33.9 RDW 16.6 H Plt Count 261 Seg Neutrophils % 83.1 H Sodium 141.7 Potassium 2.1 L* Chloride 104 Carbon Dioxide 33 H Anion Gap 5 BUN 9 Creatinine 0.72 Est GFR ( Amer) > 60 Glucose 118 H Calcium 7.5 L Total Bilirubin 0.7 AST 17 Alkaline Phosphatase 164 H Total Protein 5.4 L Albumin 2.4 L Impressions: PICC Line Insertion 10/05/18 00:00 IMPRESSION: SUCCESSFUL PLACEMENT OF A 5 FR SINGLE LUMEN 38 CM PICC IN THE RIGHT BASILIC VEIN. Chest X-Ray 10/07/18 00:00 IMPRESSION: No acute findings in the chest. A right-sided PICC line has been added. Tip overlies the SVC. Abdomen/Pelvis CT 10/11/18 00:00 IMPRESSION: Diffuse nonspecific colitis, similar to the prior exam with liquefied stool/diarrhea. No free air or free fluid. TECHNICAL DOCUMENTATION: Quality ID # 436: Final reports with documentation of one or more dose reduction techniques (e.g., Automated exposure control, adjustment of the mA and/or kV according to patient size, use of iterative reconstruction technique) copyright 2011 [employer]- All Rights Reserved Assessment & Plan - Diagnosis (1) Inflammatory bowel disease (ulcerative colitis) Qualifiers: Ulcerative colitis location: other ulcerative colitis Digestive disease com plication type: with abscess Qualified Code(s): K51.814 - Other ulcerative colitis with abscess Is this a current diagnosis for this admission?: Yes (2) Hypokalemia Is this a current diagnosis for this admission?: Yes (3) Abdominal aortic aneurysm (AAA) without rupture Is this a current diagnosis for this admission?: Yes (4) Deep vein thrombosis, upper right extremity Qualifiers: Affected thrombotic vein of extremity: other upper extremity vein Chronicity: acute Qualified Code(s): I82.621 - Acute embolism and thrombosis of deep veins of right upper extremity Is this a current diagnosis for this admission?: Yes (5) Acute blood loss anemia Is this a current diagnosis for this admission?: Yes (6) Major depression Is this a current diagnosis for this admission?: Yes
[2018-10-28] MEDS: INSULIN REG, HUMAN 100 UNIT/ML 3 ML VIAL (PYX) SUBCUT SCH (06:13)
[2018-10-28 06:46] LABS: HEMATOCRIT 28.9 % (36.0-47.0); HEMOGLOBIN 9.9 g/dL (12.0-15.5); MEAN CORPUSCULAR HEMOGLOBIN 30.9 pg (27.0-33.4); MEAN CORPUSCULAR HGB CONC 34.1 g/dL (32.0-36.0); MEAN CORPUSCULAR VOLUME 91 fl (80-97); PLATELET COUNT 229 10^3/uL (150-450); RED BLOOD COUNT 3.19 10^6/uL (3.72-5.28); RED CELL DISTRIBUTION WIDTH 17.2 % (11.5-14.0); WHITE BLOOD COUNT 9.5 10^3/uL (4.0-10.5)
[2018-10-28 07:09] LABS: ALBUMIN 2.2 g/dL (3.5-5.0); ALKALINE PHOSPHATASE 167 U/L (38-126); ANION GAP 5 (5-19); ASPARTATE AMINO TRANSFERASE 18 U/L (14-36); BILIRUBIN,DIRECT 0.3 mg/dL (0.0-0.4); BILIRUBIN,TOTAL 0.5 mg/dL (0.2-1.3); BLOOD UREA NITROGEN 8 mg/dL (7-20); CALCIUM 7.3 mg/dL (8.4-10.2); CARBON DIOXIDE 32 mmol/L (22-30); CHLORIDE 105 mmol/L (98-107); GLUCOSE 134 mg/dL (75-110); TOTAL PROTEIN 4.9 g/dL (6.3-8.2)
[2018-10-28 07:16] LABS: POTASSIUM 2.8 mmol/L (3.6-5.0)
[2018-10-28] MEDS ORDERED: POTASSIUM CHLORIDE 10 MEQ CAPSULE.ER PO ONE (08:00)
[2018-10-28 09:15] VITALS: BP 121/57
== END 2018-10-28 10:42 | disposition home or self-care (01) | DRG 386 ==
LOC: ER 14:33 → EH 18:56 → 3S 23:08
PROVIDERS: ADMIT Internal Medicine; ATTEND Internal Medicine
PROC: B518ZZA Fluoroscopy of Superior Vena Cava, Guidance (ICD-10-PCS; 2018-10-01)
PROC: 02HV33Z Insertion of Infusion Device into Superior Vena Cava, Percutaneous Approach (ICD-10-PCS; 2018-10-05)
PROC: B548ZZA Ultrasonography of Superior Vena Cava, Guidance (ICD-10-PCS; 2018-10-05)
PROC: 3E0436Z Introduction of Nutritional Substance into Central Vein, Percutaneous Approach (ICD-10-PCS; 2018-10-05)
PROC: 0DBN8ZX Excision of Sigmoid Colon, Via Natural or Artificial Opening Endoscopic, Diagnostic (ICD-10-PCS; principal; 2018-10-14 17:45)
PROC: 30233N1 Transfusion of Nonautologous Red Blood Cells into Peripheral Vein, Percutaneous Approach (ICD-10-PCS; 2018-10-22)
DX: K51.014 Ulcerative (chronic) pancolitis with abscess (principal); I82.621 Acute embolism and thrombosis of deep veins of right upper extremity; D62 Acute posthemorrhagic anemia; T82.868A Thrombosis due to vascular prosthetic devices, implants and grafts, initial encounter; E87.6 Hypokalemia; I71.4 Abdominal aortic aneurysm, without rupture; D72.829 Elevated white blood cell count, unspecified; J44.9 Chronic obstructive pulmonary disease, unspecified; F32.9 Major depressive disorder, single episode, unspecified; E83.51 Hypocalcemia; T45.515A Adverse effect of anticoagulants, initial encounter; Y92.230 Patient room in hospital as the place of occurrence of the external cause; Y84.8 Other medical procedures as the cause of abnormal reaction of the patient, or of later complication, without mention of misadventure at the time of the procedure
CPT/HCPCS: 36415; 36430; 36569; 45331; 71045; 74177; 76937; 77001; 80048; 80053; 80061; 80076; 80307; 81001; 82140; 82150; 82272; 82962; 83036; 83605; 83690; 83735; 84100; 84132; 84134; 84439; 84443; 84478; 85025; 85027; 85610; 85730; 86850; 86900; 86901; 86920; 87040; 87045; 87070; 87086; 87205; 87324; 87493; 88305; 89055; 93971; 96361; 96365; 96366; 96368; 96375; 96376; 99285; J0171; J0744; J1200; J1610; J1642; J1650; J1720; J1815; J1956; J2250; J2270; J2310; J2405; J2543; J2550; J3010; J3370; J3480; J3490; J7030; J7050; J7512; P9016

== ENCOUNTER 2018-11-17 12:52 | Inpatient (IN) | payer BC, MEDICARE ==
[2018-11-17 13:37] LABS: MEAN CORPUSCULAR HEMOGLOBIN 30.6 pg (27.0-33.4); MEAN CORPUSCULAR HGB CONC 32.4 g/dL (32.0-36.0); MEAN CORPUSCULAR VOLUME 94 fl (80-97); RED BLOOD COUNT 3.61 10^6/uL (3.72-5.28); RED CELL DISTRIBUTION WIDTH 19.3 % (11.5-14.0)
[2018-11-17 13:49] LABS: ALBUMIN 2.5 g/dL (3.5-5.0); ALKALINE PHOSPHATASE 196 U/L (38-126); ANION GAP 10 (5-19); ASPARTATE AMINO TRANSFERASE 14 U/L (14-36); BILIRUBIN,DIRECT 0.3 mg/dL (0.0-0.4); BLOOD UREA NITROGEN 27 mg/dL (7-20); CALCIUM 7.9 mg/dL (8.4-10.2); CARBON DIOXIDE 25 mmol/L (22-30); CHLORIDE 96 mmol/L (98-107); GLUCOSE 134 mg/dL (75-110); POTASSIUM 3.8 mmol/L (3.6-5.0); TOTAL PROTEIN 5.3 g/dL (6.3-8.2)
[2018-11-17 14:08] LABS: APPEARANCE,URINE SLIGHTLY-CLOUDY; BILIRUBIN,URINE SMALL (NEGATIVE); COLOR,URINE AMBER; GLUCOSE, URINE NEGATIVE (NEGATIVE); KETONES,URINE TRACE mg/dL (NEGATIVE); LEUKOCYTE ESTERASE,URINE NEGATIVE (NEGATIVE); NITRITE,URINE NEGATIVE (NEGATIVE); PROTEIN,URINE 30 mg/dL (NEGATIVE); URINE SPECIFIC GRAVITY 1.027
[2018-11-17 14:15] LABS: ABSOLUTE LYMPHOCYTES# (MANUAL) 1.7 10^3/uL (0.5-4.7); BASOPHILS % (MANUAL) 0 % (0-2); EOSINOPHILS % (MANUAL) 0 % (0-6); LYMPHOCYTES % (MANUAL) 19 % (13-45); TOTAL CELLS COUNTED 100
--- NOTE | 2018-11-17 14:22 | ER Document Report ---
ED General - General Chief Complaint: Abdominal Pain Stated Complaint: NAUSEA,VOMITING,DIARRHEA Time Seen by Provider: 11/17/18 14:21 Primary Care Provider: ARTIS VENEGAS MD [Primary Care Provider] - Follow up as needed TRAVEL OUTSIDE OF THE [place] IN LAST 30 DAYS: No - HPI Patient complains to provider of: Nausea vomiting diarrhea abdominal pain Notes: Critically ill-appearing 73-year-old female presents in severe acute distress with profound tachycardia and borderline hypotension. Patient endorsing diffuse abdominal pain 8/10 sharp in nature without radiation nothing makes it better or worse. Is associated profound nausea, vomiting and diarrhea. Has been getting worse and worse last 3 days. Patient has history of ulcerative colitis. Patient was just discharged from the hospital a week or 2 ago. She had a protracted stay in our hospital for about 1 month. Patient is on daily steroids for her ulcerative colitis and antibiotics for presumed infection. Patient denies fever but endorses profound decreased oral intake. - Related Data Allergies/Adverse Reactions: No Known Allergies Allergy (Verified 05/18/18 10:22) Past Medical History - Social History Smoking Status: Never Smoker Chew tobacco use (# tins/day): No Frequency of alcohol use: None Drug Abuse: None Family History: Reviewed & Not Pertinent, Arthritis Patient has suicidal ideation: No Patient has homicidal ideation: No - Past Medical History Cardiac Medical History: Reports: Hx Hypercholesterolemia, Hx Hypertension Pulmonary Medical History: Reports: Hx COPD, Hx Pneumonia Neurological Medical History: Denies: Hx Seizures Renal/ Medical History: Denies: Hx Peritoneal Dialysis GI Medical History: Reports: Hx Gastroesophageal Reflux Disease Past Surgical History: Reports: Other - Cataract surgery. Denies: Hx Hysterectomy - Immunizations Hx Pneumococcal Vaccination: 02/08/10 Review of Systems - Review of Systems Notes: REVIEW OF SYSTEMS: CONSTITUTIONAL: -fevers, -chills EENT: -eye pain, -difficulty swallowing, -nasal congestion CARDIOVASCULAR: -chest pain, -syncope. RESPIRATORY: -cough, -SOB GASTROINTESTINAL: Positive abdominal pain, positive nausea, vomiting, diarrhea GENITOURINARY: -dysuria, -hematuria MUSCULOSKELETAL: -back pain, -neck pain SKIN: -rash or skin lesions. HEMATOLOGIC: -easy bruising or bleeding. LYMPHATIC: -swollen, enlarged glands. NEUROLOGICAL: -altered mental status or loss of consciousness, -headache, - neurologic symptoms PSYCHIATRIC: -anxiety, -depression. ALL OTHER SYSTEMS REVIEWED AND NEGATIVE. Physical Exam - Vital signs Vitals: Pulse Ox 93 11/17/18 13:03 - Notes Notes: PHYSICAL EXAMINATION: GENERAL: Fully ill-appearing female HEAD: Atraumatic, normocephalic. EYES: Pupils equal round and reactive to light, extraocular movements intact, sclera anicteric, conjunctiva are normal. ENT: nares patent, oropharynx clear without exudates. Moist mucous membranes. NECK: Normal range of motion, supple without lymphadenopathy LUNGS: Breath sounds clear to auscultation bilaterally and equal. No wheezes rales or rhonchi. HEART: Tachycardia cardia, no murmurs ABDOMEN: soft abdomen, diffusely tender EXTREMITIES: Normal range of motion, no pitting or edema. No cyanosis. NEUROLOGICAL: Cranial nerves grossly intact. Normal speech, normal gait. Normal sensory and motor exams. PSYCH: Normal mood, normal affect. SKIN: Warm, Dry, normal turgor, no rashes or lesions noted. Course - Re-evaluation Re-evalutation: 11/17/18 14:33 Critically ill-appearing 73-year-old female presents with profound tachycardia and hypotension. Will initiate sepsis protocol including lactic acid, blood cultures and aggressive fluid resuscitation. Patient also has a second IV established. Will initiate antiemetic and analgesia therapy. Immunocompromise secondary to long course of high-dose steroids. She has no leukocytosis afebrile. Patient given aggressive fluid resuscitation in the emergency department tachycardia markedly improved systolic blood pressure now near 100. Patient's CAT scan and pelvis continues to show diffuse colitis with fat stranding. Patient's pain now markedly improved after morphine. Reevaluation of patient she is still unable to tolerate oral intake. Consult primary care doctor. Patient will be admitted to our stepdown ICU. 11/17/18 16:18 - Vital Signs Vital signs: Temp Pulse Resp BP Pulse Ox 16 89/66 L 95 11/17/18 13:09 11/17/18 13:09 11/17/18 13:09 - Laboratory Result Diagrams: 11/17/18 13:15 11/17/18 13:15 Laboratory results interpreted by me: 11/17/18 11/17/18 11/17/18 13:15 13:15 13:27 RBC 3.61 L Hgb 11.0 L Hct 34.0 L RDW 19.3 H Seg Neuts % (Manual) 40 L Band Neutrophils % 40 H Monocytes % (Manual) 1 L Sodium 130.8 L Chloride 96 L BUN 27 H Est GFR (MDRD) Non-Af 52 L Glucose 134 H Calcium 7.9 L Alkaline Phosphatase 196 H Total Protein 5.3 L Albumin 2.5 L Lipase < 10.0 L Urine Protein 30 H Urine Ketones TRACE H Urine Bilirubin SMALL H Urine Urobilinogen 2.0 H Critical Care Note - Critical Care Note Total time excluding time spent on procedures (mins): 36 Discharge - Discharge Clinical Impression: Intractable nausea and vomiting Ulcerative colitis Qualifiers: Ulcerative colitis location: other ulcerative colitis Digestive disease complication type: other complication Qualified Code(s): K51.818 - Other ulcerative colitis with other complication Hypotension Qualifiers: Hypotension type: unspecified hypotension type Qualified Code(s): I95.9 - Hypotension, unspecified Condition: Stable Disposition: ADMITTED INPATIENT Admitting Provider: [facility] Unit Admitted: IMCU Referrals: ARTIS VENEGAS MD [Primary Care Provider] - Follow up as needed
[2018-11-17 14:28] LABS: ANISOCYTOSIS 2+; TOXIC GRANULATION 3+; TOXIC VACUOLATION PRESENT
[2018-11-17 14:29] LABS: PLATELET CLUMPS PRESENT; PLATELET COMMENT ADEQUATE
[2018-11-17 14:30] LABS: PLATELET COUNT 270 10^3/uL (150-450)
[2018-11-17] MEDS ORDERED: NORMAL SALINE 1000 ML 1,000 ML IV ONE ×2 (14:31)
[2018-11-17] MEDS ORDERED: ONDANSETRON HCL INJ/PF 4 MG/2 ML SDV IV ONE (14:31)
[2018-11-17] MEDS ORDERED: MORPHINE SULFATE 10 MG/ML INJ IV ONE (14:31)
[2018-11-17 14:52] LABS: ABSOLUTE MONOCYTES # (MANUAL) 0.1 10^3/uL (0.1-1.4); MONOCYTES % (MANUAL) 1 % (3-13); NUCLEATED RED BLOOD CELLS 1 /100 WBC (0); SEGMENTED NEUTROPHILS % (MAN) 40 % (42-78)
[2018-11-17 14:53] LABS: BAND NEUTROPHILS % (MANUAL) 40 % (3-5); OVALOCYTES SLIGHT; POIKILOCYTOSIS SLIGHT; POLYCHROMASIA SLIGHT; SCHISTOCYTES SLIGHT
--- NOTE | 2018-11-17 15:20 | RADIOLOGY REPORT (SQ) ---
EXAM DESCRIPTION: CT ABD/PELVIS WITH IV ONLY COMPLETED DATE/TIME: 11/17/2018 3:04 pm REASON FOR STUDY: abdominal pain COMPARISON: 10/11/2018 TECHNIQUE: CT scan of the abdomen and pelvis performed using helical scanning technique with dynamic intravenous contrast injection. No oral contrast. Images reviewed with lung, soft tissue, and bone windows. Reconstructed coronal and sagittal MPR images reviewed. Delayed images for evaluation of the urinary system also acquired. All images stored on PACS. All CT scanners at this facility use dose modulation, iterative reconstruction, and/or weight based d osing when appropriate to reduce radiation dose to as low as reasonably achievable (ALARA). [facility]: Dose Right [facility]: CareDose [facility]: Dose Right [facility]: Teradose 4D [facility]: [employer] CONTRAST TYPE AND DOSE: contrast/concentration: Isovue 350.00 mg/ml; Total Contrast Delivered: 79.0 ml; Total Saline Delivered: 68.0 ml RENAL FUNCTION: GFR > 60. RADIATION DOSE: CT Rad equipment meets quality standard of care and radiation dose reduction techniq ues were employed. CTDIvol: 9.0 - 13.0 mGy. DLP: 1105 mGy-cm.. LIMITATIONS: None. FINDINGS: LOWER CHEST: No significant findings. No nodules or infiltrates. LIVER: Normal size. No masses. No dilated ducts. SPLEEN: Normal size. No focal lesions. PANCREAS: No masses. No significant calcifications. No adjacent inflammation or peripancreatic fluid collections. Pancreatic duct not dilated. GALLBLADDER: No identified stones by CT criteria. No inflammatory changes to suggest cholecystitis. ADRENAL GLANDS: No significant masses or asymmetry. RIGHT KIDNEY AND URETER: No solid masses. No significant calcifications. No hydronephrosis or hyd roureter. LEFT KIDNEY AND URETER: No solid masses. No significant calcifications. No hydronephrosis or hydr oureter. AORTA AND VESSELS: No aneurysm. No dissection. Renal arteries, SMA, celiac without stenosis. Mixed c alcific atherosclerosis. RETROPERITONEUM: No retroperitoneal adenopathy, hemorrhage or masses. BOWEL AND PERITONEAL CAVITY: There is diffuse, featureless thickening of the entirety of the colon APPENDIX: Normal. PELVIS: No mass. No free fluid. Urinary bladder decompressed by Ness catheter ABDOMINAL WALL: No masses. No hernias. BONES: No significant or acute findings. OTHER: No other significant finding. IMPRESSION: There is diffuse, featureless thickening of the entirety of the colon with mild associat ed fat stranding, which is decreased compared to prior examination dated 10/11/2018. Findings remain c onsistent with nonspecific infectious or inflammatory colitis, including ulcerative colitis, which ap pears improved compared to prior examination. There is no new finding to explain abdominal pain. TECHNICAL DOCUMENTATION: JOB ID: [id number] Quality ID # [id number]: Final reports with documentation of one or more dose reduction techniques (e.g., Au tomated exposure control, adjustment of the mA and/or kV according to patient size, use of iterative reconstruction technique) 2010 [employer]- All Rights Reserved Reading location - IP/workstation name: [email or web address]
[2018-11-17] MEDS: HEPARIN SOD (PORCINE) 5,000 UNIT/ML 1 ML VIAL SUBCUT SCH ×2 (19:10→21:03)
[2018-11-17 19:46] LABS: INTERNATIONAL RATION (INR) 1.34; PROTHROMBIN TIME 16.7 SEC (11.4-15.4)
[2018-11-17 19:47] LABS: PARTIAL THROMBOPLASTIN TIME 26.9 SEC (23.5-35.8)
[2018-11-17] MEDS: NORMAL SALINE 1000 ML 1,000 ML IV PRN (19:55)
[2018-11-17 19:57] LABS: PHOSPHORUS 4.5 mg/dL (2.5-4.5)
[2018-11-17 20:00] LABS: AMYLASE < 30 U/L (30-110)
[2018-11-17 20:14] LABS: FREE T4 (FREE THYROXINE) 0.91 ng/dL (0.78-2.19)
[2018-11-17] MEDS ORDERED: NORMAL SALINE 1000 ML 1,000 ML IV PRN (20:19)
[2018-11-17 20:28] LABS: THYROID STIMULATING HORMONE 0.62 uIU/mL (0.47-4.68)
--- NOTE | 2018-11-17 20:29 | PDOC H&P ---
History of Present Illness Admission Date/PCP: 11/17/18 16:46 ARTIS VENEGAS MD History of Present Illness: NAN ALMEIDA is a 73 year old female, Patient is well-known to me she has a history of severe ulcerative colitis involving the whole length of the colon, she was recently discharged from this hospital presently in the skilled nursing undergoing rehabilitation, she came to the emergency room for evaluation of abdominal pain, diarrhea, and weakness. She was evaluated in the emergency room, a CAT scan of the abdomen and pelvis with IV contrast was obtained, it demonstrated diffuse thickening of the entirety of the colon normal appendix there was mild associated fat stranding which was decreased when compared to prior examination dated 10/11/2018. There was associated hypotension in the emergency room she was treated with IV fluid, the ED physician want her admitted for Management Past Medical History Cardiac Medical History: Reports: Hyperlipidema, Hypertension Pulmonary Medical History: Reports: Chronic Obstructive Pulmonary Disease (COPD), Pneumonia GI Medical History: Reports: Gastroesophageal Reflux Disease, Ulcerative Colitis Past Surgical History Past Surgical History: Reports: Other - Cataract surgery Social History Smoking Status: Never Smoker Electronic Cigarette use?: No Frequency of Alcohol Use: None Hx Recreational Drug Use: No Drugs: None Hx Prescription Drug Abuse: No Family History Family History: Reviewed & Not Pertinent, Arthritis Parental Family History Reviewed: Yes Children Family History Reviewed: Yes Sibling(s) Family History Reviewed.: Yes Medication/Allergy Home Medications: Pravastatin Sodium [Pravachol] 10 mg PO QHS 05/18/18 Tiotropium [place] [Spiriva Handihaler 5 Cap/Kit (18 Mcg/Cap)] 1 cap IH DAILY 05/18/18 Mesalamine [Asacol Sr 400 mg Capsule] 800 mg PO TID #90 capsule. 10/27/18 Mirtazapine [Remeron 15 mg Tablet] 7.5 mg PO QPM #90 tablet 10/27/18 Prednisone [Deltasone 20 mg Tablet] 60 mg PO DAILY #30 tablet 10/27/18 Sertraline HCl [Zoloft 50 mg Tablet] 50 mg PO DAILY #90 tablet 10/27/18 Tiotropium [place] [Spiriva Handihaler 5 Cap/Kit (18 Mcg/Cap)] 1 cap IH DAILY kit 10/27/18 Potassium Chloride 40 meq PO DAILY #30 tab.er.prt 10/28/18 Allergies/Adverse Reactions: No Known Allergies Allergy (Verified 05/18/18 10:22) Review of Systems Constitutional: PRESENT: anorexia, fatigue, weakness Eyes: ABSENT: visual disturbances Ears: ABSENT: hearing changes Cardiovascular: ABSENT: chest pain, dyspnea on exertion, edema, orthropnea, palpitations Respiratory: ABSENT: cough, hemoptysis Gastrointestinal: PRESENT: abdominal pain, diarrhea Genitourinary: ABSENT: dysuria, hematuria Musculoskeletal: ABSENT: joint swelling Integumentary: ABSENT: rash, wounds Neurological: ABSENT: abnormal gait, abnormal speech, confusion, dizziness, focal weakness, syncope Psychiatric: ABSENT: anxiety, depression, homidical ideation, suicidal ideation Endocrine: ABSENT: cold intolerance, heat intolerance, menstrual abnormalities, polydipsia, polyuria Hematologic/Lymphatic: ABSENT: easy bleeding, easy bruising, lymphadenopathy Physical Exam Vital Signs: Temp Pulse Resp BP Pulse Ox 97.5 F 103 H 16 83/61 L 98 11/17/18 19:55 11/17/18 19:55 11/17/18 19:55 11/17/18 19:55 11/17/18 19:55 Intake & Output 11/16/18 11/17/18 11/18/18 06:59 06:59 06:59 Intake Total 1999 Balance 1999 Weight 69.3 kg General appearance: PRESENT: other - She is alert looks acutely sick Head exam: PRESENT: atraumatic, normocephalic Eye exam: PRESENT: conjunctiva pink, EOMI, PERRLA Ear exam: PRESENT: normal external ear exam Mouth exam: PRESENT: moist, tongue midline Neck exam: PRESENT: full ROM Respiratory exam: PRESENT: clear to auscultation mayra Cardiovascular exam: PRESENT: RRR, +S1, +S2 Vascular exam: PRESENT: normal capillary refill GI/Abdominal exam: PRESENT: normal bowel sounds, soft Rectal exam: PRESENT: deferred Neurological exam: PRESENT: alert, CN II-XII grossly intact Psychiatric exam: PRESENT: appropriate affect, normal mood Skin exam: PRESENT: dry, intact, warm Results Laboratory Results: 11/17/18 13:15 11/17/18 13:15 11/17/18 11/17/18 11/17/18 13:15 13:15 13:27 WBC 9.0 RBC 3.61 L Hgb 11.0 L Hct 34.0 L MCV 94 MCH 30.6 MCHC 32.4 RDW 19.3 H Plt Count 270 Seg Neutrophils % Not Reportable Sodium 130.8 L Potassium 3.8 Chloride 96 L Carbon Dioxide 25 Anion Gap 10 BUN 27 H Creatinine 1.04 Est GFR ( Amer) > 60 Glucose 134 H Lactic Acid Calcium 7.9 L Phosphorus Magnesium Total Bilirubin 1.0 AST 14 Alkaline Phosphatase 196 H Ammonia Total Protein 5.3 L Albumin 2.5 L Amylase Lipase < 10.0 L Urine Color JAYA Urine Appearance SLIGHTLY-CLOUDY Urine pH 5.0 Ur Specific [place] 1.027 Urine Protein 30 H Urine Glucose (UA) NEGATIVE Urine Ketones TRACE H Urine Blood NEGATIVE Urine Nitrite NEGATIVE Ur Leukocyte Esterase NEGATIVE Urine WBC (Auto) 2 Urine RBC (Auto) 1 11/17/18 11/17/18 11/17/18 15:05 19:11 19:11 WBC RBC Hgb Hct MCV MCH MCHC RDW Plt Count Seg Neutrophils % Sodium Potassium Chloride Carbon Dioxide Anion Gap BUN Creatinine Est GFR ( Amer) Glucose Lactic Acid 1.6 Calcium Phosphorus 4.5 Magnesium 2.0 Total Bilirubin AST Alkaline Phosphatase Ammonia < 8.7 L Total Protein Albumin Amylase < 30 L Lipase Cancelled Urine Color Urine Appearance Urine pH Ur Specific [place] Urine Protein Urine Glucose (UA) Urine Ketones Urine Blood Urine Nitrite Ur Leukocyte Esterase Urine WBC (Auto) Urine RBC (Auto) Impressions: Abdomen/Pelvis CT 11/17/18 14:22 IMPRESSION: There is diffuse, featureless thickening of the entirety of the colon with mild associated fat stranding, which is decreased compared to prior examination dated 10/11/2018. Findings remain consistent with nonspecific infectious or inflammatory colitis, including ulcerative colitis, which appears improved compared to prior examination. There is no new finding to explain abdominal pain. Assessment & Plan - Diagnosis (1) Hypotension Qualifiers: Hypotension type: unspecified hypotension type Qualified Code(s): I95.9 - Hypotension, unspecified Is this a current diagnosis for this admission?: Yes Plan: Patient to be admitted for vigorous IV fluid therapy (2) Ulcerative colitis Qualifiers: Ulcerative colitis location: ulcerative pancolitis Digestive disease complication type: with rectal bleeding Qualified Code(s): K51.011 - Ulcerative (chronic) pancolitis with rectal bleeding Is this a current diagnosis for this admission?: Yes Plan: Consult GI ,continue present treatment regimen
[2018-11-17 22:13] LABS: APPEARANCE,URINE CLEAR; BILIRUBIN,URINE NEGATIVE (NEGATIVE); COLOR,URINE YELLOW; GLUCOSE, URINE NEGATIVE (NEGATIVE); KETONES,URINE 20 mg/dL (NEGATIVE); LEUKOCYTE ESTERASE,URINE NEGATIVE (NEGATIVE); NITRITE,URINE NEGATIVE (NEGATIVE); PROTEIN,URINE NEGATIVE (NEGATIVE); URINE SPECIFIC GRAVITY 1.051; UROBILINOGEN,URINE NEGATIVE mg/dL (<2.0)
[2018-11-17 22:43] LABS: TROPONIN I < 0.012 ng/mL
[2018-11-17] MEDS: HYDROCORTISONE SOD SUCCINATE INJ/PF 100 MG/2 ML SDV IV SCH (22:55)
[2018-11-18] MEDS: NORMAL SALINE 1000 ML 1,000 ML IV PRN ×3 (02:14→17:16)
[2018-11-18 03:48] LABS: ABSOLUTE LYMPHOCYTES (AUTO) 0.7 10^3/uL (0.5-4.7); ABSOLUTE MONOCYTES (AUTO) 0.2 10^3/uL (0.1-1.4); HEMATOCRIT 27.4 % (36.0-47.0); LYMPHOCYTES % (AUTO) 8.2 % (13-45); MEAN CORPUSCULAR HEMOGLOBIN 30.7 pg (27.0-33.4); MEAN CORPUSCULAR HGB CONC 32.4 g/dL (32.0-36.0); MEAN CORPUSCULAR VOLUME 95 fl (80-97); MONOCYTES % (AUTO) 2.7 % (3-13); PLATELET COUNT 175 10^3/uL (150-450); SEGMENTED NEUTROPHILS % (AUTO) 89.1 % (42-78); TOTAL CELLS COUNTED % (AUTO) 100 %; WHITE BLOOD COUNT 8.9 10^3/uL (4.0-10.5)
[2018-11-18 03:53] LABS: HEMOGLOBIN 8.9 g/dL (12.0-15.5)
[2018-11-18 04:13] LABS: ALKALINE PHOSPHATASE 126 U/L (38-126); ANION GAP 6 (5-19); ASPARTATE AMINO TRANSFERASE 24 U/L (14-36); BILIRUBIN,DIRECT 0.2 mg/dL (0.0-0.4); BILIRUBIN,TOTAL 0.5 mg/dL (0.2-1.3); BLOOD UREA NITROGEN 21 mg/dL (7-20); CARBON DIOXIDE 23 mmol/L (22-30); CHLORIDE 106 mmol/L (98-107); CHOLESTEROL 64.46 mg/dL (0-200); GLUCOSE 101 mg/dL (75-110); POTASSIUM 3.1 mmol/L (3.6-5.0); TOTAL PROTEIN 4.6 g/dL (6.3-8.2); TRIGLYCERIDES 167 mg/dL (<150)
[2018-11-18 04:18] LABS: CREATINE KINASE < 20 U/L (30-135); VLDL CHOLESTEROL 33.4 mg/dL (10-31)
[2018-11-18 04:27] LABS: CREATINE KINASE MB 0.94 ng/mL (<4.55)
[2018-11-18 04:32] LABS: DIRECT LDL < 30 mg/dL (<100)
[2018-11-18 04:33] LABS: TROPONIN I < 0.012 ng/mL
[2018-11-18] MEDS: HYDROCORTISONE SOD SUCCINATE INJ/PF 100 MG/2 ML SDV IV SCH ×3 (06:16→21:38)
[2018-11-18] MEDS: HEPARIN SOD (PORCINE) 5,000 UNIT/ML 1 ML VIAL SUBCUT SCH ×3 (06:16→21:37)
[2018-11-18] MEDS ORDERED: INFLUENZA QUAD (6MOS+) 2019-20 VAC 0.5 ML SYR IM ONE (08:00)
[2018-11-18] MEDS: POTASSI CL 20 MEQ/50 ML RIDER 20 MEQ/50 ML RTUPB IV SCH ×2 (10:09→11:41)
[2018-11-18 10:31] LABS: CREATINE KINASE MB 1.01 ng/mL (<4.55)
[2018-11-18 10:39] LABS: TROPONIN I < 0.012 ng/mL
[2018-11-18 12:03] LABS: PATH REVIEW PATHOLOGIST REVIEWED
--- NOTE | 2018-11-18 19:40 | PDOC CONSULTATION ---
Consultation Consult Date: 11/18/18 Provider Consulted: GARLAND ELENA History of Present Illness Admission Date/PCP: 11/17/18 16:46 ARTIS VENEGAS MD History of Present Illness: NAN ALMEIDA is a 73 year old femalePatient who was admitted yesterday with vomiting and some abdominal pain. I actually saw her in the office on 11/25/2018 following her recent prolonged admission for ulcerative colitis. She was doing better but was still feeling weak overall. She was at a rehabilitation place. She came to the emergency room as she vomited twice within 15 hours. She does have some mild abdominal pain which is not new for her. Her bowel habit also did not change. She has 3-4 bowel movements a day with mostly loose stools and only bleeding off-and-on. On admission this time she had a CAT scan that shows diffuse featureless thickening of the entire colon with mild associated fat stranding. The inflammation is decreased compared to her last CAT scan about 5 weeks ago. She has not vomited while in the hospital but has not been taking any medications. She has a poor appetite and has not been eating well. Her albumin was 2 on admission Past Medical History Cardiac Medical History: Reports: Hyperlipidema, Hypertension Pulmonary Medical History: Reports: Chronic Obstructive Pulmonary Disease (COPD), Pneumonia Neurological Medical History: Denies: Seizures GI Medical History: Reports: Gastroesophageal Reflux Disease, Ulcerative Colitis Past Surgical History Past Surgical History: Reports: Other - Cataract surgery Denies: Hysterectomy Social History Smoking Status: Never Smoker Electronic Cigarette use?: No Frequency of Alcohol Use: None Hx Recreational Drug Use: No Drugs: None Hx Prescription Drug Abuse: No Family History Family History: Reviewed & Not Pertinent, Arthritis Parental Family History Reviewed: No Children Family History Reviewed: NA Sibling(s) Family History Reviewed.: NA Medication/Allergy Home Medications: Albuterol Sulfate [Proair HFA Inhalation Aerosol 8.5 gm MDI] 2 puff IH Q6HP PRN 11/18/18 Aspirin [Ecotrin 81 mg EC Tablet] 81 mg PO DAILY 11/18/18 Fluconazole [Diflucan 100 mg Tablet] 100 mg PO DAILY 11/18/18 Mesalamine [Lialda] 4.8 gm PO DAILY 11/18/18 Nystatin/Dexameth/Diphen [Magic Mouthwash] 5 ml PO QID 11/18/18 Pravastatin Sodium [Pravachol] 10 mg PO QHS 11/18/18 Prednisone [Deltasone 20 mg Tablet] 40 mg PO DAILY 11/18/18 Tiotropium [place] [Spiriva Handihaler 5 Cap/Kit (18 Mcg/Cap)] 1 cap IH DAILY 11/18/18 Allergies/Adverse Reactions: No Known Allergies Allergy (Verified 05/18/18 10:22) Review of Systems All systems: reviewed and no additional remarkable complaints except as stated Physical Exam Vital Signs: Temp Pulse Resp BP Pulse Ox 97.8 F 103 H 16 95/56 L 97 11/18/18 15:58 11/18/18 19:00 11/18/18 15:58 11/18/18 15:58 11/18/18 15:58 Intake & Output 11/17/18 11/18/18 11/19/18 06:59 06:59 06:59 Intake Total 3048 2038 Output Total 250 Balance 2798 2038 Weight 68.5 kg 68.5 kg Exam: General: Patient is alert and looks well. HEENT: There is no pallor or jaundice. PERRLA. Oropharynx normal Respiratory: No chest deformity. No respiratory distress. Chest wall palpitation was unremarkable. Breath sounds were normal Cardiovascular: Heart sounds 1 and 2 normal with no murmurs. Abdominal: Not distended. Soft and nontender. Liver and spleen not palpable. No ascites demonstrated. Bowel sounds active. Rectal examination was deferred. Extremities: No edema Neurological: Alert and oriented x4. Grossly nonfocal. Normal speech Skin: No significant rash Psychological: Normal affect Results Laboratory Results: 11/18/18 03:30 11/18/18 03:30 11/17/18 11/17/18 11/17/18 19:11 19:11 19:11 WBC RBC Hgb Hct MCV MCH MCHC RDW Plt Count Seg Neutrophils % Sodium Potassium Chloride Carbon Dioxide Anion Gap BUN Creatinine Est GFR ( Amer) Glucose Calcium Phosphorus 4.5 Magnesium 2.0 Total Bilirubin AST Alkaline Phosphatase Ammonia < 8.7 L Total Protein Albumin Triglycerides Cholesterol LDL Cholesterol Direct VLDL Cholesterol HDL Cholesterol Amylase < 30 L Lipase Cancelled TSH 0.62 Free T4 0.91 Urine Color Urine Appearance Urine pH Ur Specific [place] Urine Protein Urine Glucose (UA) Urine Ketones Urine Blood Urine Nitrite Ur Leukocyte Esterase Urine WBC (Auto) Urine RBC (Auto) 11/17/18 11/18/18 11/18/18 21:30 03:30 03:30 WBC 8.9 RBC 2.90 L Hgb 8.9 L D Hct 27.4 L MCV 95 MCH 30.7 MCHC 32.4 RDW 19.0 H Plt Count 175 Seg Neutrophils % 89.1 H Sodium 135.1 L Potassium 3.1 L Chloride 106 Carbon Dioxide 23 Anion Gap 6 BUN 21 H Creatinine 0.82 Est GFR ( Amer) > 60 Glucose 101 Calcium 7.0 L* Phosphorus Magnesium Total Bilirubin 0.5 AST 24 Alkaline Phosphatase 126 Ammonia Total Protein 4.6 L Albumin 2.0 L Triglycerides 167 H Cholesterol 64.46 LDL Cholesterol Direct < 30 VLDL Cholesterol 33.4 H HDL Cholesterol 21 L Amylase Lipase TSH Free T4 Urine Color YELLOW Urine Appearance CLEAR Urine pH 6.0 Ur Specific [place] 1.051 Urine Protein NEGATIVE Urine Glucose (UA) NEGATIVE Urine Ketones 20 H Urine Blood NEGATIVE Urine Nitrite NEGATIVE Ur Leukocyte Esterase NEGATIVE Urine WBC (Auto) 2 Urine RBC (Auto) 1 11/17/18 11/17/18 11/18/18 19:11 21:45 03:30 Creatine Kinase < 20 L CK-MB (CK-2) 1.20 0.94 Troponin I < 0.012 < 0.012 11/18/18 11/18/18 11/18/18 03:30 09:42 09:42 Creatine Kinase < 20 L < 20 L CK-MB (CK-2) 1.01 Troponin I < 0.012 Impressions: Abdomen/Pelvis CT 11/17/18 14:22 IMPRESSION: There is diffuse, featureless thickening of the entirety of the colon with mild associated fat stranding, which is decreased compared to prior examination dated 10/11/2018. Findings remain consistent with nonspecific infectious or inflammatory colitis, including ulcerative colitis, which appears improved compared to prior examination. There is no new finding to explain abdominal pain. Assessment & Plan - Diagnosis (1) Ulcerative pancolitis with complication Is this a current diagnosis for this admission?: Yes Plan: She had severe pancolitis while she was in the hospital in October. She still has evidence of colitis on the CAT scan from yesterday but he does appear much better than prior. She has been on 40 mg of prednisone for the last week and currently she is on hydrocortisone 50 mg 3 times daily. Upon discharge we should return to the 40 mg of prednisone until I see her in the office in a couple of weeks. I also resumed her mesalamine at 4.8 g a day. (2) Vomiting Is this a current diagnosis for this admission?: Yes Plan: This is her primary reason for presentation. She had no evidence of obstruction or other acute findings on her CAT scan. The vomiting may be related to her medications or possibly a viral illness. She has not vomited over the last 24 hours. I will keep her on Zofran [id number] for 1 to 2 days. (3) Malnutrition Qualifiers: Malnutrition type: protein-calorie malnutrition Protein-calorie malnutrition severity: severe Qualified Code(s): E43 - Unspecified severe protein-calorie malnutrition Is this a current diagnosis for this admission?: Yes Plan: She will receive Ensure 3 times a day in addition to her diet. Hopefully her appetite will improve as her colitis is resolved.
[2018-11-18] MEDS ORDERED: ALBUTEROL SULFATE HFA (90 MCG/PUFF) 200 PUFF/8.5 GM MDI IH PRN (19:43)
[2018-11-18] MEDS ORDERED: TIOTROPIUM BROMIDE DPI 5 CAP/KIT (18 MCG/CAP) IH SCH (19:45)
--- NOTE | 2018-11-18 20:13 | PDOC PROGRESS REPORT ---
Subjective Progress Note for:: 11/18/18 Subjective:: Patient was admitted yesterday, she was seen by the bedside today, she somewhat looks better than yesterday, she is still very weak, she has no energy, we will consult physical therapy. GI consult was obtained from Dr. Martin. She was started on stress dose of glucocorticoid yesterday, the blood pressure is on the low side she is on IV fluid normal saline at 150 cc/h. Reason For Visit: INTRACTABLE NAUSEA VOMITING,ULCERATIVE COLITIS Physical Exam Vital Signs: Temp Pulse Resp BP Pulse Ox 97.8 F 103 H 16 95/56 L 97 11/18/18 15:58 11/18/18 19:00 11/18/18 15:58 11/18/18 15:58 11/18/18 15:58 Intake & Output 11/17/18 11/18/18 11/19/18 06:59 06:59 06:59 Intake Total 3048 2038 Output Total 250 Balance 2798 2038 Weight 68.5 kg 68.5 kg General appearance: PRESENT: no acute distress Eye exam: PRESENT: PERRLA Respiratory exam: PRESENT: clear to auscultation mayra Cardiovascular exam: PRESENT: +S1, +S2 GI/Abdominal exam: PRESENT: soft Neurological exam: PRESENT: alert Results Laboratory Results: 11/18/18 03:30 11/18/18 03:30 11/17/18 11/17/18 11/18/18 19:11 21:30 03:30 WBC 8.9 RBC 2.90 L Hgb 8.9 L D Hct 27.4 L MCV 95 MCH 30.7 MCHC 32.4 RDW 19.0 H Plt Count 175 Seg Neutrophils % 89.1 H Sodium Potassium Chloride Carbon Dioxide Anion Gap BUN Creatinine Est GFR ( Amer) Glucose Calcium Total Bilirubin AST Alkaline Phosphatase Total Protein Albumin Triglycerides Cholesterol LDL Cholesterol Direct VLDL Cholesterol HDL Cholesterol TSH 0.62 Free T4 0.91 Urine Color YELLOW Urine Appearance CLEAR Urine pH 6.0 Ur Specific [place] 1.051 Urine Protein NEGATIVE Urine Glucose (UA) NEGATIVE Urine Ketones 20 H Urine Blood NEGATIVE Urine Nitrite NEGATIVE Ur Leukocyte Esterase NEGATIVE Urine WBC (Auto) 2 Urine RBC (Auto) 1 11/18/18 03:30 WBC RBC Hgb Hct MCV MCH MCHC RDW Plt Count Seg Neutrophils % Sodium 135.1 L Potassium 3.1 L Chloride 106 Carbon Dioxide 23 Anion Gap 6 BUN 21 H Creatinine 0.82 Est GFR ( Amer) > 60 Glucose 101 Calcium 7.0 L* Total Bilirubin 0.5 AST 24 Alkaline Phosphatase 126 Total Protein 4.6 L Albumin 2.0 L Triglycerides 167 H Cholesterol 64.46 LDL Cholesterol Direct < 30 VLDL Cholesterol 33.4 H HDL Cholesterol 21 L TSH Free T4 Urine Color Urine Appearance Urine pH Ur Specific [place] Urine Protein Urine Glucose (UA) Urine Ketones Urine Blood Urine Nitrite Ur Leukocyte Esterase Urine WBC (Auto) Urine RBC (Auto) 11/17/18 11/17/18 11/18/18 19:11 21:45 03:30 Creatine Kinase < 20 L CK-MB (CK-2) 1.20 0.94 Troponin I < 0.012 < 0.012 11/18/18 11/18/18 11/18/18 03:30 09:42 09:42 Creatine Kinase < 20 L < 20 L CK-MB (CK-2) 1.01 Troponin I < 0.012 Impressions: Abdomen/Pelvis CT 11/17/18 14:22 IMPRESSION: There is diffuse, featureless thickening of the entirety of the colon with mild associated fat stranding, which is decreased compared to prior examination dated 10/11/2018. Findings remain consistent with nonspecific infectious or inflammatory colitis, including ulcerative colitis, which appears improved compared to prior examination. There is no new finding to explain abdominal pain. Assessment & Plan - Diagnosis (1) Hypotension Qualifiers: Hypotension type: unspecified hypotension type Qualified Code(s): I95.9 - Hypotension, unspecified Is this a current diagnosis for this admission?: Yes Plan: Blood pressure low normal, continue present hydration, obtain chest x-ray to rule out volume overload (2) Ulcerative colitis Qualifiers: Ulcerative colitis location: ulcerative pancolitis Digestive disease complication type: with rectal bleeding Qualified Code(s): K51.011 - Ulcerative (chronic) pancolitis with rectal bleeding Is this a current diagnosis for this admission?: Yes Plan: Continue intravenous hydrocortisone at 50 mg IV every 8 hours - Time Time Spent with patient: 35 or more minutes
--- NOTE | 2018-11-18 21:00 | RADIOLOGY REPORT (SQ) ---
EXAM DESCRIPTION: XR CHEST 1 VIEW COMPLETED DATE/TME: 11/18/2018 00:00 CLINICAL HISTORY: 73 years, Female, ? volume overload COMPARISON: Prior study from 05/18/2018 NUMBER OF VIEWS: One TECHNIQUE: Single frontal view of the chest was obtained portably LIMITATIONS: None. FINDINGS: Cardiac and mediastinal contours are stable. There is blunting of the left costophrenic sulcus. Right lung is overall clear. Slight eventration of the right hemidiaphragm appears unchanged. No pneumothorax. IMPRESSION: Blunting of the left costophrenic sulcus which could indicate pleural thickening, small pleural effusion, or a prominent epicardial fat pad. Otherwise, clear lungs. copyright 2010 [employer]- All Rights Reserved
[2018-11-18] MEDS: TRAMADOL HCL 50 MG TABLET PO PRN (21:37)
[2018-11-18] MEDS: FLUCONAZOLE 100 MG TABLET PO SCH (21:37)
[2018-11-18] MEDS: ONDANSETRON 4 MG TAB.RAPDIS PO PRN (21:37)
[2018-11-18] MEDS: MESALAMINE 400 MG CAPSULE.DR PO SCH (21:37)
[2018-11-18] MEDS: NYSTATIN/DEXAMETH/DIPHEN SUSP 120 ML PO SCH (21:45)
[2018-11-19] MEDS: NORMAL SALINE 1000 ML 1,000 ML IV PRN ×2 (00:30→07:24)
[2018-11-19 03:41] LABS: C DIFFICILE GDH NEGATIVE (NEGATIVE)
[2018-11-19 05:12] LABS: HEMATOCRIT 27.8 % (36.0-47.0); HEMOGLOBIN 8.6 g/dL (12.0-15.5); MEAN CORPUSCULAR HEMOGLOBIN 29.2 pg (27.0-33.4); MEAN CORPUSCULAR HGB CONC 30.9 g/dL (32.0-36.0); MEAN CORPUSCULAR VOLUME 95 fl (80-97); PLATELET COUNT 148 10^3/uL (150-450); RED BLOOD COUNT 2.93 10^6/uL (3.72-5.28); RED CELL DISTRIBUTION WIDTH 19.7 % (11.5-14.0); WHITE BLOOD COUNT 5.7 10^3/uL (4.0-10.5)
[2018-11-19 05:38] LABS: ABSOLUTE LYMPHOCYTES# (MANUAL) 0.7 10^3/uL (0.5-4.7); ABSOLUTE MONOCYTES # (MANUAL) 0.2 10^3/uL (0.1-1.4); BAND NEUTROPHILS % (MANUAL) 5 % (3-5); BASOPHILS % (MANUAL) 0 % (0-2); EOSINOPHILS % (MANUAL) 0 % (0-6); LYMPHOCYTES % (MANUAL) 12 % (13-45); MONOCYTES % (MANUAL) 3 % (3-13); SEGMENTED NEUTROPHILS % (MAN) 80 % (42-78); TOTAL CELLS COUNTED 100
[2018-11-19 05:39] LABS: ANISOCYTOSIS 2+; HYPOCHROMASIA 1+; PLATELET COMMENT DECREASED
[2018-11-19] MEDS: HYDROCORTISONE SOD SUCCINATE INJ/PF 100 MG/2 ML SDV IV SCH ×3 (05:50→21:24)
[2018-11-19] MEDS: PANTOPRAZOLE SODIUM 40 MG TABLET.DR PO SCH (05:50)
[2018-11-19] MEDS: HEPARIN SOD (PORCINE) 5,000 UNIT/ML 1 ML VIAL SUBCUT SCH ×3 (05:50→21:25)
[2018-11-19] MEDS: MESALAMINE 400 MG CAPSULE.DR PO SCH ×3 (10:06→17:13)
[2018-11-19] MEDS: NYSTATIN/DEXAMETH/DIPHEN SUSP 120 ML PO SCH ×4 (10:06→21:24)
[2018-11-19] MEDS: UMECLIDINIUM BROMIDE 62.5 MCG/DOSE IH SCH (10:06)
--- NOTE | 2018-11-19 12:47 | PDOC PROGRESS REPORT ---
Subjective Progress Note for:: 11/19/18 Subjective:: Patient seen by the bedside, she has difficulty standing, she has no muscle strength Reason For Visit: INTRACTABLE NAUSEA VOMITING,ULCERATIVE COLITIS Physical Exam Vital Signs: Temp Pulse Resp BP Pulse Ox 97.5 F 95 16 107/60 99 11/19/18 07:33 11/19/18 07:33 11/19/18 07:33 11/19/18 07:33 11/19/18 07:33 Intake & Output 11/18/18 11/19/18 11/20/18 06:59 06:59 06:59 Intake Total 3048 3538 1000 Output Total 450 800 Balance 2598 2738 1000 Weight 68.5 kg 70.5 kg General appearance: PRESENT: no acute distress Eye exam: PRESENT: PERRLA Respiratory exam: PRESENT: clear to auscultation mayra Cardiovascular exam: PRESENT: +S1, +S2 GI/Abdominal exam: PRESENT: soft Neurological exam: PRESENT: alert, CN II-XII grossly intact Results Laboratory Results: 11/19/18 04:08 11/18/18 03:30 11/19/18 04:08 WBC 5.7 RBC 2.93 L Hgb 8.6 L Hct 27.8 L MCV 95 MCH 29.2 MCHC 30.9 L RDW 19.7 H Plt Count 148 L Seg Neutrophils % Not Reportable 11/17/18 11/17/18 11/18/18 19:11 21:45 03:30 Creatine Kinase < 20 L CK-MB (CK-2) 1.20 0.94 Troponin I < 0.012 < 0.012 11/18/18 11/18/18 11/18/18 03:30 09:42 09:42 Creatine Kinase < 20 L < 20 L CK-MB (CK-2) 1.01 Troponin I < 0.012 Impressions: Abdomen/Pelvis CT 11/17/18 14:22 IMPRESSION: There is diffuse, featureless thickening of the entirety of the colon with mild associated fat stranding, which is decreased compared to prior examination dated 10/11/2018. Findings remain consistent with nonspecific infectious or inflammatory colitis, including ulcerative colitis, which appears improved compared to prior examination. There is no new finding to explain abdominal pain. Chest X-Ray 11/18/18 00:00 IMPRESSION: Blunting of the left costophrenic sulcus which could indicate pleural thickening, small pleural effusion, or a prominent epicardial fat pad. Otherwise, clear lungs. copyright 2011 [employer] [place]- All Rights Reserved Assessment & Plan - Diagnosis (1) Hypotension Qualifiers: Hypotension type: unspecified hypotension type Qualified Code(s): I95.9 - Hypotension, unspecified Is this a current diagnosis for this admission?: Yes Plan: Blood pressure has improved, continue stress dose hydrocortisone for few more days (2) Ulcerative colitis Qualifiers: Ulcerative colitis location: ulcerative pancolitis Digestive disease complication type: with rectal bleeding Qualified Code(s): K51.011 - Ulcerative (chronic) pancolitis with rectal bleeding Is this a current diagnosis for this admission?: Yes (3) Myopathy Is this a current diagnosis for this admission?: Yes Plan: She has myopathy this could be from the prednisone, but, MRI of the lumbar spine will be obtained to rule out any compressive neuropathy (4) Hypokalemia Is this a current diagnosis for this admission?: Yes Plan: This is probably from GI losses, I will change IV fluid to normal saline plus KCl 40 M EQ to run at 100 cc/h - Time Time Spent with patient: 35 or more minutes
[2018-11-19] MEDS: POTASSI CL 40 MEQ/NS 1L 1,000 ML IV PRN (13:52)
[2018-11-19] MEDS: SERTRALINE HCL 50 MG TABLET PO SCH (13:52)
[2018-11-19] MEDS: TRAMADOL HCL 50 MG TABLET PO PRN (14:03)
[2018-11-19] MEDS: ONDANSETRON 4 MG TAB.RAPDIS PO PRN (14:03)
--- NOTE | 2018-11-19 15:45 | RADIOLOGY REPORT (SQ) ---
EXAM DESCRIPTION: MRI LUMBAR SPINE WITHOUT COMPLETED DATE/TIME: 11/19/2018 3:08 pm REASON FOR STUDY: loss of muscle strength of both legs COMPARISON: None. TECHNIQUE: Sagittal and Axial imaging includes T1, T2, STIR and gradient echo sequences. Coronal T2/ HASTE imaging. LIMITATIONS: Motion artifact. FINDINGS: VISUALIZED UPPER ABDOMEN: Limited evaluation. No acute or suspicious findings suggested. SEGMENTATION: No transitional anatomy. The lowest well-developed disc space is labeled L5-S1. ALIGNMENT: Anatomic. VERTEBRAE: Intact. BONE MARROW: Normal. No marrow replacement or reactive changes. DISC SIGNAL: Desiccation multiple levels. POSTERIOR ELEMENTS: Generally intact. No pars defect evident. HARDWARE: None in the spine. CORD AND CONUS: Normal in size and signal intensity. Conus at the appropriate level. SOFT TISSUES: No aortic aneurysm seen. No bulky retroperitoneal adenopathy or mass. No paraspinal mas s or fluid. L1-L2: No significant spinal stenosis or exit foraminal stenosis. L2-L3: No significant spinal stenosis or exit foraminal stenosis. L3-L4: Mild spinal stenosis due to disc bulge and facet arthropathy. L4-L5: Mild spinal stenosis due to disc bulge and facet arthropathy. L5-S1: Collapse of the disc space. Facet arthropathy. No significant spinal stenosis. LOWER THORACIC: Incompletely imaged. No stenosis seen. SACRUM: Visualized upper sacrum intact. OTHER: No other significant findings. IMPRESSION: Spondylosis and facet arthropathy. Mild spinal stenosis. No acute findings. TECHNICAL DOCUMENTATION: JOB ID: [id number] [employer]- All Rights Reserved Reading location - IP/workstation name: [email or web address]
[2018-11-19] MEDS: FLUCONAZOLE 100 MG TABLET PO SCH (21:24)
[2018-11-20] MEDS: POTASSI CL 40 MEQ/NS 1L 1,000 ML IV PRN ×3 (01:21→21:57)
[2018-11-20 05:15] LABS: HEMATOCRIT 29.3 % (36.0-47.0); HEMOGLOBIN 9.2 g/dL (12.0-15.5); MEAN CORPUSCULAR HGB CONC 31.3 g/dL (32.0-36.0); MEAN CORPUSCULAR VOLUME 96 fl (80-97); PLATELET COUNT 138 10^3/uL (150-450); RED BLOOD COUNT 3.05 10^6/uL (3.72-5.28); RED CELL DISTRIBUTION WIDTH 19.8 % (11.5-14.0); WHITE BLOOD COUNT 5.8 10^3/uL (4.0-10.5)
[2018-11-20 06:30] LABS: ABSOLUTE LYMPHOCYTES# (MANUAL) 0.8 10^3/uL (0.5-4.7); ABSOLUTE MONOCYTES # (MANUAL) 0.3 10^3/uL (0.1-1.4); BAND NEUTROPHILS % (MANUAL) 8 % (3-5); BASOPHILS % (MANUAL) 0 % (0-2); EOSINOPHILS % (MANUAL) 0 % (0-6); LYMPHOCYTES % (MANUAL) 14 % (13-45); MONOCYTES % (MANUAL) 5 % (3-13); SEGMENTED NEUTROPHILS % (MAN) 73 % (42-78); TOTAL CELLS COUNTED 100
[2018-11-20 06:31] LABS: ANISOCYTOSIS 2+; PLATELET COMMENT DECREASED
[2018-11-20] MEDS: HYDROCORTISONE SOD SUCCINATE INJ/PF 100 MG/2 ML SDV IV SCH ×3 (07:23→22:00)
[2018-11-20] MEDS: PANTOPRAZOLE SODIUM 40 MG TABLET.DR PO SCH (07:23)
[2018-11-20] MEDS: HEPARIN SOD (PORCINE) 5,000 UNIT/ML 1 ML VIAL SUBCUT SCH ×3 (07:23→22:00)
[2018-11-20] MEDS: NYSTATIN/DEXAMETH/DIPHEN SUSP 120 ML PO SCH ×4 (09:48→22:03)
[2018-11-20] MEDS: MESALAMINE 400 MG CAPSULE.DR PO SCH ×3 (09:48→17:48)
[2018-11-20] MEDS: SERTRALINE HCL 50 MG TABLET PO SCH (09:48)
[2018-11-20] MEDS: UMECLIDINIUM BROMIDE 62.5 MCG/DOSE IH SCH (09:48)
[2018-11-20 11:37] LABS: ALKALINE PHOSPHATASE 256 U/L (38-126); ANION GAP 7 (5-19); ASPARTATE AMINO TRANSFERASE 21 U/L (14-36); BILIRUBIN,DIRECT 0.3 mg/dL (0.0-0.4); BILIRUBIN,TOTAL 0.4 mg/dL (0.2-1.3); BLOOD UREA NITROGEN 8 mg/dL (7-20); CALCIUM 7.3 mg/dL (8.4-10.2); CARBON DIOXIDE 20 mmol/L (22-30); CHLORIDE 113 mmol/L (98-107); GLUCOSE 165 mg/dL (75-110); POTASSIUM 3.4 mmol/L (3.6-5.0); TOTAL PROTEIN 4.7 g/dL (6.3-8.2)
[2018-11-20] MEDS: TRAMADOL HCL 50 MG TABLET PO PRN ×2 (12:06→21:59)
--- NOTE | 2018-11-20 14:02 | PDOC PROGRESS REPORT ---
Subjective Progress Note for:: 11/20/18 Subjective:: Patient seen by the bedside, she looks better today, she will continue present stress dose hydrocortisone for 2 more days, hopefully discharge back to rehabilitation for continued PT Reason For Visit: INTRACTABLE NAUSEA VOMITING,ULCERATIVE COLITIS Physical Exam Vital Signs: Temp Pulse Resp BP Pulse Ox 97.5 F 91 15 96/56 L 97 11/20/18 07:34 11/20/18 07:34 11/20/18 07:34 11/20/18 07:34 11/20/18 07:34 Intake & Output 11/19/18 11/20/18 11/21/18 06:59 06:59 06:59 Intake Total 3538 3212 1236 Output Total 800 500 225 Balance 7848 2712 1011 Weight 70.5 kg 65.9 kg General appearance: PRESENT: no acute distress Head exam: PRESENT: atraumatic, normocephalic Eye exam: PRESENT: PERRLA Mouth exam: PRESENT: moist, tongue midline Neck exam: PRESENT: full ROM Respiratory exam: PRESENT: clear to auscultation mayra Cardiovascular exam: PRESENT: RRR, +S1, +S2 Pulses: PRESENT: normal dorsalis pedis pul, +2 pedal pulses bilateral Vascular exam: PRESENT: normal capillary refill GI/Abdominal exam: PRESENT: normal bowel sounds, soft Rectal exam: PRESENT: deferred Neurological exam: PRESENT: alert, awake, oriented to person, oriented to place, oriented to time, oriented to situation, CN II-XII grossly intact Psychiatric exam: PRESENT: appropriate affect, normal mood Skin exam: PRESENT: dry, intact, warm Results Laboratory Results: 11/20/18 04:20 11/20/18 11:08 11/20/18 11/20/18 04:20 11:08 WBC 5.8 RBC 3.05 L Hgb 9.2 L Hct 29.3 L MCV 96 MCH 30.0 MCHC 31.3 L RDW 19.8 H Plt Count 138 L Seg Neutrophils % Not Reportable Sodium 139.6 Potassium 3.4 L Chloride 113 H Carbon Dioxide 20 L Anion Gap 7 BUN 8 Creatinine 0.62 Est GFR ( Amer) > 60 Glucose 165 H Calcium 7.3 L Total Bilirubin 0.4 AST 21 Alkaline Phosphatase 256 H Total Protein 4.7 L Albumin 2.0 L 11/17/18 11/17/18 11/18/18 19:11 21:45 03:30 Creatine Kinase < 20 L CK-MB (CK-2) 1.20 0.94 Troponin I < 0.012 < 0.012 11/18/18 11/18/18 11/18/18 03:30 09:42 09:42 Creatine Kinase < 20 L < 20 L CK-MB (CK-2) 1.01 Troponin I < 0.012 Impressions: Abdomen/Pelvis CT 11/17/18 14:22 IMPRESSION: There is diffuse, featureless thickening of the entirety of the colon with mild associated fat stranding, which is decreased compared to prior examination dated 10/11/2018. Findings remain consistent with nonspecific infectious or inflammatory colitis, including ulcerative colitis, which appears improved compared to prior examination. There is no new finding to explain abdominal pain. Chest X-Ray 11/18/18 00:00 IMPRESSION: Blunting of the left costophrenic sulcus which could indicate pleural thickening, small pleural effusion, or a prominent epicardial fat pad. Otherwise, clear lungs. copyright 2011 [employer]- All Rights Reserved Lumbar Spine MRI 11/19/18 00:00 IMPRESSION: Spondylosis and facet arthropathy. Mild spinal stenosis. No acute findings. Assessment & Plan - Diagnosis (1) Hypotension Qualifiers: Hypotension type: unspecified hypotension type Qualified Code(s): I95.9 - Hypotension, unspecified Is this a current diagnosis for this admission?: Yes Plan: Resolved (2) Ulcerative colitis Qualifiers: Ulcerative colitis location: ulcerative pancolitis Digestive disease complication type: with rectal bleeding Qualified Code(s): K51.011 - Ulcerative (chronic) pancolitis with rectal bleeding Is this a current diagnosis for this admission?: Yes (3) Myopathy Is this a current diagnosis for this admission?: Yes (4) Hypokalemia Is this a current diagnosis for this admission?: Yes Plan: Continue replacement therapy - Time Time Spent with patient: 35 or more minutes - Plan Summary Plan Summary: I had a long discussion with patient and her spouse today about her plan of care
[2018-11-20] MEDS: FLUCONAZOLE 100 MG TABLET PO SCH (21:59)
[2018-11-21] MEDS: HEPARIN SOD (PORCINE) 5,000 UNIT/ML 1 ML VIAL SUBCUT SCH ×3 (05:47→22:29)
[2018-11-21] MEDS: PANTOPRAZOLE SODIUM 40 MG TABLET.DR PO SCH (05:48)
[2018-11-21] MEDS: HYDROCORTISONE SOD SUCCINATE INJ/PF 100 MG/2 ML SDV IV SCH ×3 (05:57→17:19)
[2018-11-21] MEDS: SERTRALINE HCL 50 MG TABLET PO SCH (08:55)
[2018-11-21] MEDS: MESALAMINE 400 MG CAPSULE.DR PO SCH ×3 (08:55→17:19)
[2018-11-21] MEDS: POTASSI CL 40 MEQ/NS 1L 1,000 ML IV PRN ×2 (08:55→20:24)
[2018-11-21] MEDS: UMECLIDINIUM BROMIDE 62.5 MCG/DOSE IH SCH (08:56)
[2018-11-21] MEDS: NYSTATIN/DEXAMETH/DIPHEN SUSP 120 ML PO SCH ×4 (09:01→22:30)
--- NOTE | 2018-11-21 18:19 | PDOC PROGRESS REPORT ---
Subjective Progress Note for:: 11/21/18 Subjective:: Patient seen by the bedside she has extremely foul-smelling maroon- colored,copious-mucus stool Reason For Visit: INTRACTABLE NAUSEA VOMITING,ULCERATIVE COLITIS Physical Exam Vital Signs: Temp Pulse Resp BP Pulse Ox 97.3 F 97 16 113/67 94 11/21/18 12:08 11/21/18 14:00 11/21/18 12:08 11/21/18 12:08 11/21/18 12:08 Intake & Output 11/20/18 11/21/18 11/22/18 06:59 06:59 06:59 Intake Total 3212 2466 1000 Output Total 500 700 Balance 2712 1766 1000 Weight 65.9 kg 70.7 kg General appearance: PRESENT: no acute distress Eye exam: PRESENT: PERRLA Respiratory exam: PRESENT: clear to auscultation mayra Cardiovascular exam: PRESENT: +S1, +S2 GI/Abdominal exam: PRESENT: soft, tenderness Neurological exam: PRESENT: alert, CN II-XII grossly intact Results Laboratory Results: 11/20/18 04:20 11/20/18 11:08 11/21/18 11/21/18 16:15 16:15 Stool Occult Blood NEGATIVE Stool for White Cells MANY H 11/17/18 11/17/18 11/18/18 19:11 21:45 03:30 Creatine Kinase < 20 L CK-MB (CK-2) 1.20 0.94 Troponin I < 0.012 < 0.012 11/18/18 11/18/18 11/18/18 03:30 09:42 09:42 Creatine Kinase < 20 L < 20 L CK-MB (CK-2) 1.01 Troponin I < 0.012 Impressions: Abdomen/Pelvis CT 11/17/18 14:22 IMPRESSION: There is diffuse, featureless thickening of the entirety of the colon with mild associated fat stranding, which is decreased compared to prior examination dated 10/11/2018. Findings remain consistent with nonspecific infectious or inflammatory colitis, including ulcerative colitis, which appears improved compared to prior examination. There is no new finding to explain abdominal pain. Chest X-Ray 11/18/18 00:00 IMPRESSION: Blunting of the left costophrenic sulcus which could indicate pleural thickening, small pleural effusion, or a prominent epicardial fat pad. Otherwise, clear lungs. copyright 2011 [employer]- All Rights Reserved Lumbar Spine MRI 11/19/18 00:00 IMPRESSION: Spondylosis and facet arthropathy. Mild spinal stenosis. No acute findings. Assessment & Plan - Diagnosis (1) Hypotension Qualifiers: Hypotension type: unspecified hypotension type Qualified Code(s): I95.9 - Hypotension, unspecified Is this a current diagnosis for this admission?: Yes (2) Ulcerative colitis Qualifiers: Ulcerative colitis location: ulcerative pancolitis Digestive disease complication type: with rectal bleeding Qualified Code(s): K51.011 - Ulcerative (chronic) pancolitis with rectal bleeding Is this a current diagnosis for this admission?: Yes Plan: Patient presently on IV hydrocortisone, I spoke to Dr. Martin GI he suggest that the dose of the hydrocortisone should be increased to 100 mg intravenously every 8 hours (3) Myopathy Is this a current diagnosis for this admission?: Yes (4) Hypokalemia Is this a current diagnosis for this admission?: Yes - Time Time Spent with patient: 35 or more minutes
[2018-11-21 19:08] LABS: C DIFFICILE GDH NEGATIVE (NEGATIVE)
[2018-11-21 19:33] LABS: ALBUMIN 1.9 g/dL (3.5-5.0); ALKALINE PHOSPHATASE 369 U/L (38-126); ANION GAP 6 (5-19); ASPARTATE AMINO TRANSFERASE 28 U/L (14-36); BILIRUBIN,DIRECT 0.3 mg/dL (0.0-0.4); BILIRUBIN,TOTAL 0.4 mg/dL (0.2-1.3); BLOOD UREA NITROGEN 10 mg/dL (7-20); CALCIUM 7.6 mg/dL (8.4-10.2); CARBON DIOXIDE 18 mmol/L (22-30); CHLORIDE 116 mmol/L (98-107); GLUCOSE 138 mg/dL (75-110); POTASSIUM 4.8 mmol/L (3.6-5.0); TOTAL PROTEIN 4.5 g/dL (6.3-8.2)
[2018-11-21 21:06] LABS: HEMATOCRIT 26.7 % (36.0-47.0); HEMOGLOBIN 8.4 g/dL (12.0-15.5); MEAN CORPUSCULAR HGB CONC 31.4 g/dL (32.0-36.0); MEAN CORPUSCULAR VOLUME 96 fl (80-97); PLATELET COUNT 117 10^3/uL (150-450); RED CELL DISTRIBUTION WIDTH 20.4 % (11.5-14.0); WHITE BLOOD COUNT 9.1 10^3/uL (4.0-10.5)
[2018-11-21 21:28] LABS: ABSOLUTE LYMPHOCYTES# (MANUAL) 1.1 10^3/uL (0.5-4.7); ABSOLUTE MONOCYTES # (MANUAL) 0.5 10^3/uL (0.1-1.4); BAND NEUTROPHILS % (MANUAL) 13 % (3-5); BASOPHILS % (MANUAL) 0 % (0-2); EOSINOPHILS % (MANUAL) 0 % (0-6); LYMPHOCYTES % (MANUAL) 12 % (13-45); METAMYELOCYTES % (MANUAL) 1 % (0); MONOCYTES % (MANUAL) 6 % (3-13); SEGMENTED NEUTROPHILS % (MAN) 68 % (42-78); TOTAL CELLS COUNTED 100
[2018-11-21 21:29] LABS: ANISOCYTOSIS 2+; HYPOCHROMASIA 1+; PLATELET COMMENT ADEQUATE
[2018-11-21] MEDS: METRONIDAZOLE 500 MG/NS RTU 500 MG/100 ML RTUPB IV SCH (22:25)
[2018-11-21] MEDS: FLUCONAZOLE 100 MG TABLET PO SCH (22:29)
[2018-11-21] MEDS: CEFTRIAXONE 1 GM/D5W RTU 1 GM/50 ML RTUPB IV SCH (22:30)
[2018-11-22] MEDS: METRONIDAZOLE 500 MG/NS RTU 500 MG/100 ML RTUPB IV SCH ×4 (03:54→21:35)
[2018-11-22 05:47] LABS: HEMATOCRIT 26.4 % (36.0-47.0); HEMOGLOBIN 8.3 g/dL (12.0-15.5); MEAN CORPUSCULAR HGB CONC 31.6 g/dL (32.0-36.0); MEAN CORPUSCULAR VOLUME 95 fl (80-97); PLATELET COUNT 152 10^3/uL (150-450); RED BLOOD COUNT 2.78 10^6/uL (3.72-5.28); RED CELL DISTRIBUTION WIDTH 19.9 % (11.5-14.0); WHITE BLOOD COUNT 7.6 10^3/uL (4.0-10.5)
[2018-11-22 05:58] LABS: ALKALINE PHOSPHATASE 371 U/L (38-126); ASPARTATE AMINO TRANSFERASE 18 U/L (14-36); BILIRUBIN,DIRECT 0.2 mg/dL (0.0-0.4); BILIRUBIN,TOTAL 0.3 mg/dL (0.2-1.3); BLOOD UREA NITROGEN 9 mg/dL (7-20); CALCIUM 7.6 mg/dL (8.4-10.2); CARBON DIOXIDE 21 mmol/L (22-30); CHLORIDE 117 mmol/L (98-107); GLUCOSE 121 mg/dL (75-110); POTASSIUM 4.1 mmol/L (3.6-5.0); TOTAL PROTEIN 4.8 g/dL (6.3-8.2)
[2018-11-22 06:06] LABS: ANION GAP 4 (5-19)
[2018-11-22 06:16] LABS: ANISOCYTOSIS 2+; BAND NEUTROPHILS % (MANUAL) 7 % (3-5); BASOPHILS % (MANUAL) 0 % (0-2); EOSINOPHILS % (MANUAL) 0 % (0-6); LYMPHOCYTES % (MANUAL) 12 % (13-45); METAMYELOCYTES % (MANUAL) 1 % (0); MONOCYTES % (MANUAL) 0 % (3-13); NUCLEATED RED BLOOD CELLS 3 /100 WBC (0); PLATELET COMMENT ADEQUATE; POLYCHROMASIA 1+; SEGMENTED NEUTROPHILS % (MAN) 79 % (42-78); TARGET CELLS SLIGHT; TEAR DROP CELLS SLIGHT; TOTAL CELLS COUNTED 100
[2018-11-22] MEDS: HYDROCORTISONE SOD SUCCINATE INJ/PF 100 MG/2 ML SDV IV SCH ×3 (08:07→21:36)
[2018-11-22] MEDS: PANTOPRAZOLE SODIUM 40 MG TABLET.DR PO SCH (08:07)
[2018-11-22] MEDS: HEPARIN SOD (PORCINE) 5,000 UNIT/ML 1 ML VIAL SUBCUT SCH ×3 (08:07→21:36)
[2018-11-22] MEDS: POTASSI CL 40 MEQ/NS 1L 1,000 ML IV PRN (08:45)
[2018-11-22] MEDS: MESALAMINE 400 MG CAPSULE.DR PO SCH ×3 (08:45→17:37)
[2018-11-22] MEDS: UMECLIDINIUM BROMIDE 62.5 MCG/DOSE IH SCH (08:46)
[2018-11-22] MEDS: SERTRALINE HCL 50 MG TABLET PO SCH (08:46)
[2018-11-22] MEDS: NYSTATIN/DEXAMETH/DIPHEN SUSP 120 ML PO SCH ×3 (09:39→17:37)
--- NOTE | 2018-11-22 17:20 | PDOC PROGRESS REPORT ---
Subjective Progress Note for:: 11/22/18 Subjective:: Overall she is doing better. She has had 2-3 slightly loose bowel movements today and has had some discomfort prior to the bowel movements. Her hemoglobin is stable at 8.3 today with normal platelet count and WBC. Her vital signs has been normal. She does not have a good taste but has been trying to eat as much as possible. Reason For Visit: INTRACTABLE NAUSEA VOMITING,ULCERATIVE COLITIS Physical Exam Vital Signs: Temp Pulse Resp BP Pulse Ox 97.5 F 98 18 102/63 95 11/22/18 16:00 11/22/18 16:00 11/22/18 16:00 11/22/18 16:00 11/22/18 16:00 Intake & Output 11/21/18 11/22/18 11/23/18 06:59 06:59 06:59 Intake Total 2466 3931 300 Output Total 700 750 Balance 1766 3181 300 Weight 70.7 kg 81 kg 81 kg Exam: General: Patient is alert HEENT: There is some pallor but no jaundice PERRLA. Oropharynx normal Respiratory: No chest deformity. No respiratory distress. Chest wall palpitation was unremarkable. Breath sounds were normal Cardiovascular: Heart sounds 1 and 2 normal with no murmurs. Abdominal: Not distended. Soft and nontender. Liver and spleen not palpable. No ascites demonstrated. Bowel sounds active. Rectal examination was deferred. Extremities: There is bilateral pitting edema Neurological: Alert and oriented x4. Normal speech Skin: No significant rash Psychological: Normal affect Results Laboratory Results: 11/22/18 04:47 11/22/18 04:47 11/21/18 11/21/18 11/21/18 16:15 18:52 18:52 WBC Cancelled RBC Cancelled Hgb Cancelled Hct Cancelled MCV Cancelled MCH Cancelled MCHC Cancelled RDW Cancelled Plt Count Cancelled Seg Neutrophils % Cancelled Sodium 140.2 Potassium 4.8 Chloride 116 H Carbon Dioxide 18 L Anion Gap 6 BUN 10 Creatinine 0.60 Est GFR ( Amer) > 60 Glucose 138 H Calcium 7.6 L Total Bilirubin 0.4 AST 28 Alkaline Phosphatase 369 H Total Protein 4.5 L Albumin 1.9 L Stool for White Cells MANY H 11/21/18 11/22/18 11/22/18 20:35 04:47 04:47 WBC 9.1 7.6 RBC 2.80 L 2.78 L Hgb 8.4 L 8.3 L Hct 26.7 L 26.4 L MCV 96 95 MCH 30.0 30.0 MCHC 31.4 L 31.6 L RDW 20.4 H 19.9 H Plt Count 117 L 152 Seg Neutrophils % Not Reportable Not Reportable Sodium 141.9 Potassium 4.1 Chloride 117 H Carbon Dioxide 21 L Anion Gap 4 L BUN 9 Creatinine 0.66 Est GFR ( Amer) > 60 Glucose 121 H Calcium 7.6 L Total Bilirubin 0.3 AST 18 Alkaline Phosphatase 371 H Total Protein 4.8 L Albumin 2.0 L Stool for White Cells 11/17/18 11/17/18 11/18/18 19:11 21:45 03:30 Creatine Kinase < 20 L CK-MB (CK-2) 1.20 0.94 Troponin I < 0.012 < 0.012 11/18/18 11/18/18 11/18/18 03:30 09:42 09:42 Creatine Kinase < 20 L < 20 L CK-MB (CK-2) 1.01 Troponin I < 0.012 Impressions: Abdomen/Pelvis CT 11/17/18 14:22 IMPRESSION: There is diffuse, featureless thickening of the entirety of the colon with mild associated fat stranding, which is decreased compared to prior examination dated 10/11/2018. Findings remain consistent with nonspecific infectious or inflammatory colitis, including ulcerative colitis, which appears improved compared to prior examination. There is no new finding to explain abdominal pain. Chest X-Ray 11/18/18 00:00 IMPRESSION: Blunting of the left costophrenic sulcus which could indicate pleural thickening, small pleural effusion, or a prominent epicardial fat pad. Otherwise, clear lungs. copyright 2010 [employer]- All Rights Reserved Lumbar Spine MRI 11/19/18 00:00 IMPRESSION: Spondylosis and facet arthropathy. Mild spinal stenosis. No acute findings. Assessment & Plan - Diagnosis (1) Ulcerative pancolitis with complication Is this a current diagnosis for this admission?: Yes Plan: She is slowly improving as far as her colitis is concerned with normal vital signs, benign abdominal exam, reduced abdominal pain and bowel movements. Hydrocortisone was increased to 100 mg 3 times a day yesterday and she should continue with this until 11/24/2018 and then we can reduce back down to 50 mg every 8 hours. She will continue with mesalamine. If her colitis flares up again she may be a candidate for Remicade. (2) Malnutrition Qualifiers: Malnutrition type: protein-calorie malnutrition Protein-calorie malnutrition severity: severe Qualified Code(s): E43 - Unspecified severe protein-calorie malnutrition Is this a current diagnosis for this admission?: Yes Plan: I encouraged to eat and drink as much as possible. She is receiving dietary supplements. (3) Vomiting Is this a current diagnosis for this admission?: Yes - Time Time Spent with patient: 25-34 minutes
--- NOTE | 2018-11-22 18:48 | PDOC PROGRESS REPORT ---
Subjective Progress Note for:: 11/22/18 Subjective:: . Patient was seen by the bedside, yesterday the stool was purulent, she was empirically started on IV antibiotic Flagyl and ceftriaxone, today the stool is less purulent but the withdrawal is still offensive. The hydrocortisone dose was also increased from 50 mg to 100mg IV Q 8 . Today she looks somewhat better compared to yesterday when I saw her, she was also seen by Dr. Martin ,GI physician Reason For Visit: INTRACTABLE NAUSEA VOMITING,ULCERATIVE COLITIS Physical Exam Vital Signs: Temp Pulse Resp BP Pulse Ox 97.5 F 98 18 102/63 95 11/22/18 16:00 11/22/18 16:00 11/22/18 16:00 11/22/18 16:00 11/22/18 16:00 Intake & Output 11/21/18 11/22/18 11/23/18 06:59 06:59 06:59 Intake Total 2466 3931 300 Output Total 700 750 Balance 1766 3181 300 Weight 70.7 kg 81 kg 81 kg General appearance: PRESENT: no acute distress Eye exam: PRESENT: PERRLA Respiratory exam: PRESENT: clear to auscultation mayra Cardiovascular exam: PRESENT: +S1, +S2 GI/Abdominal exam: PRESENT: soft Neurological exam: PRESENT: alert, CN II-XII grossly intact Results Laboratory Results: 11/22/18 04:47 11/22/18 04:47 11/21/18 11/21/18 11/21/18 18:52 18:52 20:35 WBC Cancelled 9.1 RBC Cancelled 2.80 L Hgb Cancelled 8.4 L Hct Cancelled 26.7 L MCV Cancelled 96 MCH Cancelled 30.0 MCHC Cancelled 31.4 L RDW Cancelled 20.4 H Plt Count Cancelled 117 L Seg Neutrophils % Cancelled Not Reportable Sodium 140.2 Potassium 4.8 Chloride 116 H Carbon Dioxide 18 L Anion Gap 6 BUN 10 Creatinine 0.60 Est GFR ( Amer) > 60 Glucose 138 H Calcium 7.6 L Total Bilirubin 0.4 AST 28 Alkaline Phosphatase 369 H Total Protein 4.5 L Albumin 1.9 L 11/22/18 11/22/18 04:47 04:47 WBC 7.6 RBC 2.78 L Hgb 8.3 L Hct 26.4 L MCV 95 MCH 30.0 MCHC 31.6 L RDW 19.9 H Plt Count 152 Seg Neutrophils % Not Reportable Sodium 141.9 Potassium 4.1 Chloride 117 H Carbon Dioxide 21 L Anion Gap 4 L BUN 9 Creatinine 0.66 Est GFR ( Amer) > 60 Glucose 121 H Calcium 7.6 L Total Bilirubin 0.3 AST 18 Alkaline Phosphatase 371 H Total Protein 4.8 L Albumin 2.0 L 11/17/18 18:27 Blood Blood Culture - Final NO GROWTH IN 5 DAYS 11/17/18 11/17/18 11/18/18 19:11 21:45 03:30 Creatine Kinase < 20 L CK-MB (CK-2) 1.20 0.94 Troponin I < 0.012 < 0.012 11/18/18 11/18/18 11/18/18 03:30 09:42 09:42 Creatine Kinase < 20 L < 20 L CK-MB (CK-2) 1.01 Troponin I < 0.012 Impressions: Abdomen/Pelvis CT 11/17/18 14:22 IMPRESSION: There is diffuse, featureless thickening of the entirety of the colon with mild associated fat stranding, which is decreased compared to prior examination dated 10/11/2018. Findings remain consistent with nonspecific infectious or inflammatory colitis, including ulcerative colitis, which appears improved compared to prior examination. There is no new finding to explain abdominal pain. Chest X-Ray 11/18/18 00:00 IMPRESSION: Blunting of the left costophrenic sulcus which could indicate pleural thickening, small pleural effusion, or a prominent epicardial fat pad. Otherwise, clear lungs. copyright 2010 [employer] All Rights Reserved Lumbar Spine MRI 11/19/18 00:00 IMPRESSION: Spondylosis and facet arthropathy. Mild spinal stenosis. No acute findings. Assessment & Plan - Diagnosis (1) Hypotension Qualifiers: Hypotension type: unspecified hypotension type Qualified Code(s): I95.9 - Hypotension, unspecified Is this a current diagnosis for this admission?: Yes Plan: resolved (2) Ulcerative colitis Qualifiers: Ulcerative colitis location: ulcerative pancolitis Digestive disease complication type: with rectal bleeding Qualified Code(s): K51.011 - Ulcerative (chronic) pancolitis with rectal bleeding Is this a current diagnosis for this admission?: Yes Plan: Patient with ulcerative colitis, complicated with probably abscess with purulent fecal discharge, she will continue present therapy including IV hydrocortisone, antibiotic (3) Myopathy Is this a current diagnosis for this admission?: Yes Plan: She continues to have muscle weakness with loss of muscle strength, she was seen today by PT, not able to take reasonable ambulatory steps (4) Hypokalemia Is this a current diagnosis for this admission?: Yes Plan: resolved - Time Time Spent with patient: 35 or more minutes
[2018-11-22] MEDS: FLUCONAZOLE 100 MG TABLET PO SCH (21:36)
[2018-11-22] MEDS: CEFTRIAXONE 1 GM/D5W RTU 1 GM/50 ML RTUPB IV SCH (23:01)
[2018-11-23] MEDS: METRONIDAZOLE 500 MG/NS RTU 500 MG/100 ML RTUPB IV SCH ×4 (02:53→21:04)
[2018-11-23] MEDS: HYDROCORTISONE SOD SUCCINATE INJ/PF 100 MG/2 ML SDV IV SCH ×3 (06:22→21:05)
[2018-11-23] MEDS: HEPARIN SOD (PORCINE) 5,000 UNIT/ML 1 ML VIAL SUBCUT SCH ×3 (06:22→21:05)
[2018-11-23] MEDS: PANTOPRAZOLE SODIUM 40 MG TABLET.DR PO SCH (06:22)
[2018-11-23] MEDS: MESALAMINE 400 MG CAPSULE.DR PO SCH ×3 (09:37→18:23)
[2018-11-23] MEDS: UMECLIDINIUM BROMIDE 62.5 MCG/DOSE IH SCH (09:37)
[2018-11-23] MEDS: SERTRALINE HCL 50 MG TABLET PO SCH (09:37)
[2018-11-23] MEDS: POTASSI CL 40 MEQ/NS 1L 1,000 ML IV PRN (09:50)
[2018-11-23 13:39] LABS: HEMATOCRIT 25.8 % (36.0-47.0); HEMOGLOBIN 8.3 g/dL (12.0-15.5); MEAN CORPUSCULAR HGB CONC 32.1 g/dL (32.0-36.0); MEAN CORPUSCULAR VOLUME 94 fl (80-97); PLATELET COUNT 151 10^3/uL (150-450); RED BLOOD COUNT 2.75 10^6/uL (3.72-5.28); RED CELL DISTRIBUTION WIDTH 19.1 % (11.5-14.0)
[2018-11-23 13:49] LABS: ABSOLUTE LYMPHOCYTES# (MANUAL) 0.5 10^3/uL (0.5-4.7); ABSOLUTE MONOCYTES # (MANUAL) 0.3 10^3/uL (0.1-1.4); ANISOCYTOSIS 2+; BAND NEUTROPHILS % (MANUAL) 3 % (3-5); BASOPHILS % (MANUAL) 0 % (0-2); EOSINOPHILS % (MANUAL) 0 % (0-6); LYMPHOCYTES % (MANUAL) 8 % (13-45); MONOCYTES % (MANUAL) 5 % (3-13); PLATELET CLUMPS PRESENT; PLATELET COMMENT ADEQUATE; POIKILOCYTOSIS SLIGHT; POLYCHROMASIA SLIGHT; SEGMENTED NEUTROPHILS % (MAN) 84 % (42-78); TEAR DROP CELLS SLIGHT; TOTAL CELLS COUNTED 100
[2018-11-23 14:24] LABS: BLOOD UREA NITROGEN 9 mg/dL (7-20); CALCIUM 7.1 mg/dL (8.4-10.2); GLUCOSE 122 mg/dL (75-110)
[2018-11-23 14:26] LABS: POTASSIUM 2.6 mmol/L (3.6-5.0)
[2018-11-23 14:27] LABS: ALBUMIN 1.9 g/dL (3.5-5.0); ALKALINE PHOSPHATASE 298 U/L (38-126); ANION GAP 9 (5-19); ASPARTATE AMINO TRANSFERASE 14 U/L (14-36); BILIRUBIN,DIRECT 0.3 mg/dL (0.0-0.4); BILIRUBIN,TOTAL 0.3 mg/dL (0.2-1.3); CARBON DIOXIDE 20 mmol/L (22-30); CHLORIDE 111 mmol/L (98-107)
[2018-11-23 14:28] LABS: TOTAL PROTEIN 4.4 g/dL (6.3-8.2)
--- NOTE | 2018-11-23 15:55 | PDOC PROGRESS REPORT ---
Subjective Progress Note for:: 11/23/18 Subjective:: Patient is seen by the bedside she had purulent feces 2 days ago ,presently on IV antibiotic ,she has less purulence today I had a long discussion with the patient and her partner today ,she will need few more days of IV antibiotics Reason For Visit: INTRACTABLE NAUSEA VOMITING,ULCERATIVE COLITIS Physical Exam Vital Signs: Temp Pulse Resp BP Pulse Ox 97.8 F 91 18 114/70 95 11/23/18 11:10 11/23/18 11:10 11/23/18 11:10 11/23/18 11:10 11/23/18 11:10 Intake & Output 11/22/18 11/23/18 11/24/18 06:59 06:59 06:59 Intake Total 3931 2090 100 Output Total 750 1825 300 Balance 3181 265 -200 Weight 81 kg 80 kg General appearance: PRESENT: no acute distress Eye exam: PRESENT: PERRLA Respiratory exam: PRESENT: clear to auscultation mayra GI/Abdominal exam: PRESENT: soft Neurological exam: PRESENT: alert Results Laboratory Results: 11/23/18 11:44 11/23/18 11:44 11/23/18 11/23/18 11:44 11:44 WBC 6.0 RBC 2.75 L Hgb 8.3 L Hct 25.8 L MCV 94 MCH 30.0 MCHC 32.1 RDW 19.1 H Plt Count 151 Seg Neutrophils % Not Reportable Sodium 139.5 Potassium 2.6 L* Chloride 111 H Carbon Dioxide 20 L Anion Gap 9 BUN 9 Creatinine 0.62 Est GFR ( Amer) > 60 Glucose 122 H Calcium 7.1 L Total Bilirubin 0.3 AST 14 Alkaline Phosphatase 298 H Total Protein 4.4 L Albumin 1.9 L 11/21/18 16:15 Stool - Stool - Final 11/17/18 19:11 Blood Blood Culture - Final NO GROWTH IN 5 DAYS 11/17/18 18:27 Blood Blood Culture - Final NO GROWTH IN 5 DAYS 11/17/18 11/17/18 11/18/18 19:11 21:45 03:30 Creatine Kinase < 20 L CK-MB (CK-2) 1.20 0.94 Troponin I < 0.012 < 0.012 11/18/18 11/18/18 11/18/18 03:30 09:42 09:42 Creatine Kinase < 20 L < 20 L CK-MB (CK-2) 1.01 Troponin I < 0.012 Impressions: Abdomen/Pelvis CT 11/17/18 14:22 IMPRESSION: There is diffuse, featureless thickening of the entirety of the colon with mild associated fat stranding, which is decreased compared to prior examination dated 10/11/2018. Findings remain consistent with nonspecific infectious or inflammatory colitis, including ulcerative colitis, which appears improved compared to prior examination. There is no new finding to explain ab dominal pain. Chest X-Ray 11/18/18 00:00 IMPRESSION: Blunting of the left costophrenic sulcus which could indicate pleural thickening, small pleural effusion, or a prominent epicardial fat pad. Otherwise, clear lungs. copyright 2010 [employer]- All Rights Reserved Lumbar Spine MRI 11/19/18 00:00 IMPRESSION: Spondylosis and facet arthropathy. Mild spinal stenosis. No acute findings. Assessment & Plan - Diagnosis (1) Hypotension Qualifiers: Hypotension type: unspecified hypotension type Qualified Code(s): I95.9 - Hypotension, unspecified Is this a current diagnosis for this admission?: Yes Plan: resolved (2) Ulcerative colitis Qualifiers: Ulcerative colitis location: ulcerative pancolitis Digestive disease complication type: with rectal bleeding Qualified Code(s): K51.011 - Ulcerative (chronic) pancolitis with rectal bleeding Is this a current diagnosis for this admission?: Yes Plan: Patient with ulcerative colitis, complicated with probably abscess with purulent fecal discharge, she will continue present therapy including IV hydrocortisone, antibiotic (3) Myopathy Is this a current diagnosis for this admission?: Yes Plan: She continues to have muscle weakness with loss of muscle strength, she was seen today by PT, not able to take reasonable ambulatory steps (4) Hypokalemia Is this a current diagnosis for this admission?: Yes Plan: She has low serum potassium ,this is most likely from GL losses ,replace K by mouth - Time Time Spent with patient: 35 or more minutes
[2018-11-23] MEDS: POTASSIUM CHLORIDE 10 MEQ CAPSULE.ER PO SCH ×2 (18:23→21:05)
[2018-11-23] MEDS: FLUCONAZOLE 100 MG TABLET PO SCH (21:21)
[2018-11-23] MEDS: CEFTRIAXONE 1 GM/D5W RTU 1 GM/50 ML RTUPB IV SCH (22:23)
[2018-11-24] MEDS: METRONIDAZOLE 500 MG/NS RTU 500 MG/100 ML RTUPB IV SCH ×4 (03:24→20:11)
[2018-11-24] MEDS: POTASSI CL 40 MEQ/NS 1L 1,000 ML IV PRN ×2 (03:24→22:50)
[2018-11-24] MEDS ORDERED: POTASSIUM CHLORIDE 10 MEQ CAPSULE.ER PO ONE (03:34)
[2018-11-24] MEDS: POTASSIUM CHLORIDE 10 MEQ CAPSULE.ER PO SCH (03:35)
[2018-11-24] MEDS: HEPARIN SOD (PORCINE) 5,000 UNIT/ML 1 ML VIAL SUBCUT SCH ×3 (05:58→21:12)
[2018-11-24] MEDS: HYDROCORTISONE SOD SUCCINATE INJ/PF 100 MG/2 ML SDV IV SCH ×3 (05:58→21:13)
[2018-11-24] MEDS: PANTOPRAZOLE SODIUM 40 MG TABLET.DR PO SCH (05:58)
[2018-11-24 07:02] LABS: ABSOLUTE LYMPHOCYTES (AUTO) 0.8 10^3/uL (0.5-4.7); ABSOLUTE MONOCYTES (AUTO) 0.2 10^3/uL (0.1-1.4); ABSOLUTE NEUT (AUTO) 5.2 10^3/uL (1.7-8.2); BASOPHILS % (AUTO) 0.1 % (0-2); HEMATOCRIT 24.6 % (36.0-47.0); LYMPHOCYTES % (AUTO) 12.6 % (13-45); MEAN CORPUSCULAR HEMOGLOBIN 30.2 pg (27.0-33.4); MEAN CORPUSCULAR HGB CONC 32.2 g/dL (32.0-36.0); MEAN CORPUSCULAR VOLUME 94 fl (80-97); MONOCYTES % (AUTO) 3.1 % (3-13); PLATELET COUNT 174 10^3/uL (150-450); RED BLOOD COUNT 2.62 10^6/uL (3.72-5.28); RED CELL DISTRIBUTION WIDTH 19.8 % (11.5-14.0); SEGMENTED NEUTROPHILS % (AUTO) 84.2 % (42-78); TOTAL CELLS COUNTED % (AUTO) 100 %; WHITE BLOOD COUNT 6.1 10^3/uL (4.0-10.5)
[2018-11-24 07:11] LABS: HEMOGLOBIN 7.9 g/dL (12.0-15.5)
[2018-11-24 07:25] LABS: ALBUMIN 1.9 g/dL (3.5-5.0); ALKALINE PHOSPHATASE 339 U/L (38-126); ANION GAP 7 (5-19); ASPARTATE AMINO TRANSFERASE 14 U/L (14-36); BILIRUBIN,DIRECT 0.4 mg/dL (0.0-0.4); BILIRUBIN,TOTAL 0.4 mg/dL (0.2-1.3); BLOOD UREA NITROGEN 7 mg/dL (7-20); CALCIUM 7.1 mg/dL (8.4-10.2); CARBON DIOXIDE 20 mmol/L (22-30); CHLORIDE 114 mmol/L (98-107); GLUCOSE 132 mg/dL (75-110); TOTAL PROTEIN 4.4 g/dL (6.3-8.2)
[2018-11-24 08:42] LABS: POTASSIUM 3.7 mmol/L (3.6-5.0)
[2018-11-24] MEDS: SERTRALINE HCL 50 MG TABLET PO SCH (10:15)
[2018-11-24] MEDS: MESALAMINE 400 MG CAPSULE.DR PO SCH ×3 (10:16→17:12)
[2018-11-24] MEDS: UMECLIDINIUM BROMIDE 62.5 MCG/DOSE IH SCH (10:18)
[2018-11-24 14:09] LABS: HEMATOCRIT 26.8 % (36.0-47.0); HEMOGLOBIN 8.5 g/dL (12.0-15.5); MEAN CORPUSCULAR HEMOGLOBIN 29.8 pg (27.0-33.4); MEAN CORPUSCULAR HGB CONC 31.7 g/dL (32.0-36.0); MEAN CORPUSCULAR VOLUME 94 fl (80-97); PLATELET COUNT 177 10^3/uL (150-450); RED BLOOD COUNT 2.85 10^6/uL (3.72-5.28); RED CELL DISTRIBUTION WIDTH 19.7 % (11.5-14.0); WHITE BLOOD COUNT 6.6 10^3/uL (4.0-10.5)
[2018-11-24] MEDS: TRAMADOL HCL 50 MG TABLET PO PRN (15:36)
--- NOTE | 2018-11-24 21:01 | PDOC PROGRESS REPORT ---
Subjective Progress Note for:: 11/24/18 Subjective:: Patient seen by the bedside, She continues to complain of malaise, the stool is more solid than liquid Reason For Visit: INTRACTABLE NAUSEA VOMITING,ULCERATIVE COLITIS Physical Exam Vital Signs: Temp Pulse Resp BP Pulse Ox 97.5 F 89 17 128/70 H 92 11/24/18 19:47 11/24/18 19:47 11/24/18 19:47 11/24/18 19:47 11/24/18 19:47 Intake & Output 11/23/18 11/24/18 11/25/18 06:59 06:59 06:59 Intake Total 2090 1650 1460 Output Total 1825 1900 450 Balance 265 -250 1010 Weight 80 kg 79.6 kg General appearance: PRESENT: no acute distress Respiratory exam: PRESENT: clear to auscultation mayra Cardiovascular exam: PRESENT: +S1, +S2 GI/Abdominal exam: PRESENT: soft Neurological exam: PRESENT: alert Results Laboratory Results: 11/24/18 13:53 11/24/18 06:23 11/24/18 11/24/18 11/24/18 06:23 06:23 13:53 WBC 6.1 6.6 RBC 2.62 L 2.85 L Hgb 7.9 L 8.5 L Hct 24.6 L 26.8 L MCV 94 94 MCH 30.2 29.8 MCHC 32.2 31.7 L RDW 19.8 H 19.7 H Plt Count 174 177 Seg Neutrophils % 84.2 H Sodium 141.2 Potassium 3.7 D Chloride 114 H Carbon Dioxide 20 L Anion Gap 7 BUN 7 Creatinine 0.69 Est GFR ( Amer) > 60 Glucose 132 H Calcium 7.1 L Total Bilirubin 0.4 AST 14 Alkaline Phosphatase 339 H Total Protein 4.4 L Albumin 1.9 L 11/21/18 16:15 Stool - Stool - Final 11/21/18 16:15 Stool - Stool Stool Culture - Final NO SALMONELLA, SHIGELLA, CAMPYLOBACTER, OR E.COLI 0157 RECOVERED. NEGATIVE FOR SHIGA TOXINS 1&2. 11/17/18 11/17/18 11/18/18 19:11 21:45 03:30 Creatine Kinase < 20 L CK-MB (CK-2) 1.20 0.94 Troponin I < 0.012 < 0.012 11/18/18 11/18/1811/18/19 03:30 09:42 09:42 Creatine Kinase < 20 L < 20 L CK-MB (CK-2) 1.01 Troponin I < 0.012 Impressions: Abdomen/Pelvis CT 11/17/18 14:22 IMPRESSION: There is diffuse, featureless thickening of the entirety of the colon with mild associated fat stranding, which is decreased compared to prior examination dated 10/11/2018. Findings remain consistent with nonspecific infectious or inflammatory colitis, including ulcerative colitis, which appears improved compared to prior examination. There is no new finding to explain abdominal pain. Chest X-Ray 11/18/18 00:00 IMPRESSION: Blunting of the left costophrenic sulcus which could indicate pleural thickening, small pleural effusion, or a prominent epicardial fat pad. Otherwise, clear lungs. copyright 2011 [employer]- All Rights Reserved Lumbar Spine MRI 11/19/18 00:00 IMPRESSION: Spondylosis and facet arthropathy. Mild spinal stenosis. No acute findings. Assessment & Plan - Diagnosis (1) Hypotension Qualifiers: Hypotension type: unspecified hypotension type Qualified Code(s): I95.9 - Hypotension, unspecified Is this a current diagnosis for this admission?: Yes (2) Ulcerative colitis Qualifiers: Ulcerative colitis location: ulcerative pancolitis Digestive disease complication type: with rectal bleeding Qualified Code(s): K51.011 - Ulcerative (chronic) pancolitis with rectal bleeding Is this a current diagnosis for this admission?: Yes Plan: Reduce intravenous hydrocortisone to 50 mg IV every 8 (3) Myopathy Is this a current diagnosis for this admission?: Yes (4) Hypokalemia Is this a current diagnosis for this admission?: Yes Plan: Continue treatment - Time Time Spent with patient: 35 or more minutes
[2018-11-24] MEDS: CEFTRIAXONE 1 GM/D5W RTU 1 GM/50 ML RTUPB IV SCH (21:12)
[2018-11-24] MEDS: FLUCONAZOLE 100 MG TABLET PO SCH (21:13)
[2018-11-24] MEDS ORDERED: FUROSEMIDE INJ/PF 40 MG/4 ML SDV IV ONE (21:30)
[2018-11-25] MEDS: METRONIDAZOLE 500 MG/NS RTU 500 MG/100 ML RTUPB IV SCH ×4 (02:06→21:00)
[2018-11-25] MEDS: HYDROCORTISONE SOD SUCCINATE INJ/PF 100 MG/2 ML SDV IV SCH ×3 (05:40→21:00)
[2018-11-25] MEDS: HEPARIN SOD (PORCINE) 5,000 UNIT/ML 1 ML VIAL SUBCUT SCH ×3 (05:40→21:00)
[2018-11-25] MEDS: PANTOPRAZOLE SODIUM 40 MG TABLET.DR PO SCH (05:40)
[2018-11-25 09:55] LABS: HEMATOCRIT 27.4 % (36.0-47.0); HEMOGLOBIN 8.7 g/dL (12.0-15.5); MEAN CORPUSCULAR HEMOGLOBIN 30.3 pg (27.0-33.4); MEAN CORPUSCULAR HGB CONC 31.9 g/dL (32.0-36.0); MEAN CORPUSCULAR VOLUME 95 fl (80-97); PLATELET COUNT 193 10^3/uL (150-450); RED BLOOD COUNT 2.87 10^6/uL (3.72-5.28); RED CELL DISTRIBUTION WIDTH 20.2 % (11.5-14.0); WHITE BLOOD COUNT 6.8 10^3/uL (4.0-10.5)
[2018-11-25] MEDS: SERTRALINE HCL 50 MG TABLET PO SCH (09:58)
[2018-11-25] MEDS: UMECLIDINIUM BROMIDE 62.5 MCG/DOSE IH SCH (09:58)
[2018-11-25] MEDS: MESALAMINE 400 MG CAPSULE.DR PO SCH ×3 (09:58→18:38)
[2018-11-25] MEDS: TRAMADOL HCL 50 MG TABLET PO PRN ×2 (10:04→16:57)
[2018-11-25 10:33] LABS: ALKALINE PHOSPHATASE 368 U/L (38-126); ANION GAP 6 (5-19); ASPARTATE AMINO TRANSFERASE 18 U/L (14-36); BILIRUBIN,DIRECT 0.5 mg/dL (0.0-0.4); BILIRUBIN,TOTAL 0.5 mg/dL (0.2-1.3); BLOOD UREA NITROGEN 7 mg/dL (7-20); CARBON DIOXIDE 23 mmol/L (22-30); CHLORIDE 113 mmol/L (98-107); GLUCOSE 128 mg/dL (75-110); POTASSIUM 3.4 mmol/L (3.6-5.0); TOTAL PROTEIN 4.5 g/dL (6.3-8.2)
[2018-11-25 10:37] LABS: ABSOLUTE LYMPHOCYTES# (MANUAL) 0.5 10^3/uL (0.5-4.7); ABSOLUTE MONOCYTES # (MANUAL) 0.2 10^3/uL (0.1-1.4); BAND NEUTROPHILS % (MANUAL) 2 % (3-5); BASOPHILS % (MANUAL) 0 % (0-2); EOSINOPHILS % (MANUAL) 0 % (0-6); LYMPHOCYTES % (MANUAL) 8 % (13-45); METAMYELOCYTES % (MANUAL) 1 % (0); MONOCYTES % (MANUAL) 3 % (3-13); SEGMENTED NEUTROPHILS % (MAN) 86 % (42-78); TOTAL CELLS COUNTED 100
[2018-11-25 10:38] LABS: ANISOCYTOSIS 2+; OVALOCYTES SLIGHT; PLATELET COMMENT ADEQUATE; POIKILOCYTOSIS SLIGHT
[2018-11-25 10:46] LABS: CALCIUM 6.7 mg/dL (8.4-10.2)
[2018-11-25] MEDS: POTASSI CL 40 MEQ/NS 1L 1,000 ML IV PRN (17:00)
--- NOTE | 2018-11-25 20:29 | PDOC PROGRESS REPORT ---
Subjective Progress Note for:: 11/25/18 Subjective:: Patient said her condition is about the same from yesterday, she is presently on IV antibiotic, IV hydrocortisone 50 mg every 8 hours she will continue present regimen until Wednesday. I told her that I am of this , she will continue present regimen until Wednesday then will transition the IV hydrocortisone to p.o. prednisone and hopefully discharge her back to rehabilitation. Reason For Visit: INTRACTABLE NAUSEA VOMITING,ULCERATIVE COLITIS Physical Exam Vital Signs: Temp Pulse Resp BP Pulse Ox 97.3 F 88 17 117/63 94 11/25/18 19:45 11/25/18 19:45 11/25/18 19:45 11/25/18 19:45 11/25/18 19:45 Intake & Output 11/24/18 11/25/18 11/26/18 06:59 06:59 06:59 Intake Total 1650 2470 1500 Output Total 1900 3150 525 Balance -250 -680 975 Weight 79.6 kg 79.3 kg 79.3 kg General appearance: PRESENT: no acute distress Eye exam: PRESENT: PERRLA Respiratory exam: PRESENT: clear to auscultation mayra Cardiovascular exam: PRESENT: +S1, +S2 GI/Abdominal exam: PRESENT: soft Neurological exam: PRESENT: alert Results Laboratory Results: 11/25/18 09:37 11/25/18 09:37 11/25/18 11/25/18 09:37 09:37 WBC 6.8 RBC 2.87 L Hgb 8.7 L Hct 27.4 L MCV 95 MCH 30.3 MCHC 31.9 L RDW 20.2 H Plt Count 193 Seg Neutrophils % Not Reportable Sodium 142.1 Potassium 3.4 L Chloride 113 H Carbon Dioxide 23 Anion Gap 6 BUN 7 Creatinine 0.50 L Est GFR ( Amer) > 60 Glucose 128 H Calcium 6.7 L* Total Bilirubin 0.5 AST 18 Alkaline Phosphatase 368 H Total Protein 4.5 L Albumin 2.0 L 11/17/18 11/17/18 11/18/18 19:11 21:45 03:30 Creatine Kinase < 20 L CK-MB (CK-2) 1.20 0.94 Troponin I < 0.012 < 0.012 11/18/18 11/18/18 11/18/18 03:30 09:42 09:42 Creatine Kinase < 20 L < 20 L CK-MB (CK-2) 1.01 Troponin I < 0.012 Impressions: Abdomen/Pelvis CT 11/17/18 14:22 IMPRESSION: There is diffuse, featureless thickening of the entirety of the colon with mild associated fat stranding, which is decreased compared to prior examination dated 10/11/2018. Findings remain consistent with nonspecific infectious or inflammatory colitis, including ulcerative colitis, which appears improved compared to prior examination. There is no new finding to explain abdominal pain. Chest X-Ray 11/18/18 00:00 IMPRESSION: Blunting of the left costophrenic sulcus which could indicate pleural thickening, small pleural effusion, or a prominent epicardial fat pad. Otherwise, clear lungs. copyright 2010 [employer]- All Rights Reserved Lumbar Spine MRI 11/19/18 00:00 IMPRESSION: Spondylosis and facet arthropathy. Mild spinal stenosis. No acute findings. Assessment & Plan - Diagnosis (1) Hypotension Qualifiers: Hypotension type: unspecified hypotension type Qualified Code(s): I95.9 - Hypotension, unspecified Is this a current diagnosis for this admission?: Yes Plan: Resolved (2) Ulcerative colitis Qualifiers: Ulcerative colitis location: ulcerative pancolitis Digestive disease complication type: with rectal bleeding Qualified Code(s): K51.011 - Ulcerative (chronic) pancolitis with rectal bleeding Is this a current diagnosis for this admission?: Yes Plan: Continue IV hydrocortisone, continue IV antibiotic (3) Myopathy Is this a current diagnosis for this admission?: Yes (4) Hypokalemia Is this a current diagnosis for this admission?: Yes - Time Time Spent with patient: 35 or more minutes
[2018-11-25] MEDS: CEFTRIAXONE 1 GM/D5W RTU 1 GM/50 ML RTUPB IV SCH (22:08)
[2018-11-26] MEDS: METRONIDAZOLE 500 MG/NS RTU 500 MG/100 ML RTUPB IV SCH ×4 (02:35→20:29)
[2018-11-26] MEDS: POTASSI CL 40 MEQ/NS 1L 1,000 ML IV PRN ×2 (03:55→17:28)
[2018-11-26] MEDS: PANTOPRAZOLE SODIUM 40 MG TABLET.DR PO SCH (05:28)
[2018-11-26] MEDS: HYDROCORTISONE SOD SUCCINATE INJ/PF 100 MG/2 ML SDV IV SCH ×3 (05:28→22:40)
[2018-11-26] MEDS: HEPARIN SOD (PORCINE) 5,000 UNIT/ML 1 ML VIAL SUBCUT SCH ×3 (05:28→22:40)
[2018-11-26] MEDS: UMECLIDINIUM BROMIDE 62.5 MCG/DOSE IH SCH (10:00)
[2018-11-26] MEDS: SERTRALINE HCL 50 MG TABLET PO SCH (10:00)
[2018-11-26] MEDS: MESALAMINE 400 MG CAPSULE.DR PO SCH ×3 (10:00→17:29)
--- NOTE | 2018-11-26 10:21 | PDOC PROGRESS REPORT ---
Subjective Progress Note for:: 11/26/18 Subjective:: Patient was admitted for the ulcerative colitis and hypotension's and hypokalemia and hypocalcemia Patient seen by Dr. Martin The abdominal pain no nausea no vomiting Patient is currently on IV hydrocortisone Patient on IV replacement of the potassiums the fluid Patient is denied any chest pain no short of breath Reason For Visit: INTRACTABLE NAUSEA VOMITING,ULCERATIVE COLITIS Physical Exam Vital Signs: Temp Pulse Resp BP Pulse Ox 97.7 F 80 16 123/69 92 11/26/18 08:27 11/26/18 08:27 11/26/18 08:27 11/26/18 08:27 11/26/18 08:27 Intake & Output 11/25/18 11/26/18 11/27/18 06:59 06:59 06:59 Intake Total 2470 3110 Output Total 3150 925 Balance -680 2185 Weight 79.3 kg 79.9 kg General appearance: PRESENT: no acute distress, well-developed, well-nourished Head exam: PRESENT: atraumatic, normocephalic Eye exam: PRESENT: conjunctiva pink, EOMI, PERRLA. ABSENT: scleral icterus Ear exam: PRESENT: normal external ear exam Mouth exam: PRESENT: moist, tongue midline Neck exam: PRESENT: full ROM. ABSENT: carotid bruit, JVD, lymphadenopathy, thyromegaly Respiratory exam: PRESENT: clear to auscultation mayra Cardiovascular exam: PRESENT: RRR. ABSENT: diastolic murmur, rubs, systolic murmur Pulses: PRESENT: normal dorsalis pedis pul, +2 pedal pulses bilateral Vascular exam: PRESENT: normal capillary refill GI/Abdominal exam: PRESENT: normal bowel sounds, soft. ABSENT: distended, guarding, mass, organolmegaly, rebound, tenderness Rectal exam: PRESENT: deferred Neurological exam: PRESENT: alert, awake, oriented to person, oriented to place, oriented to time, oriented to situation, CN II-XII grossly intact. ABSENT: motor sensory deficit Psychiatric exam: PRESENT: appropriate affect, normal mood. ABSENT: homicidal ideation, suicidal ideation Skin exam: PRESENT: dry, intact, warm. ABSENT: cyanosis, rash Results Laboratory Results: 11/25/18 09:37 11/25/18 09:37 11/25/18 09:37 Sodium 142.1 Potassium 3.4 L Chloride 113 H Carbon Dioxide 23 Anion Gap 6 BUN 7 Creatinine 0.50 L Est GFR ( Amer) > 60 Glucose 128 H Calcium 6.7 L* Total Bilirubin 0.5 AST 18 Alkaline Phosphatase 368 H Total Protein 4.5 L Albumin 2.0 L 11/17/18 11/17/18 11/18/18 19:11 21:45 03:30 Creatine Kinase < 20 L CK-MB (CK-2) 1.20 0.94 Troponin I < 0.012 < 0.012 11/18/18 11/18/18 11/18/18 03:30 09:42 09:42 Creatine Kinase < 20 L < 20 L CK-MB (CK-2) 1.01 Troponin I < 0.012 Impressions: Abdomen/Pelvis CT 11/17/18 14:22 IMPRESSION: There is diffuse, featureless thickening of the entirety of the colon with mild associated fat stranding, which is decreased compared to prior examination dated 10/11/2018. Findings remain consistent with nonspecific infectious or inflammatory colitis, including ulcerative colitis, which appears improved compared to prior examination. There is no new finding to explain abdominal pain. Chest X-Ray 11/18/18 00:00 IMPRESSION: Blunting of the left costophrenic sulcus which could indicate pleural thickening, small pleural effusion, or a prominent epicardial fat pad. Otherwise, clear lungs. copyright 2011 [employer]- All Rights Reserved Lumbar Spine MRI 11/19/18 00:00 IMPRESSION: Spondylosis and facet arthropathy. Mild spinal stenosis. No acute findings. Assessment & Plan - Diagnosis (1) Hypokalemia Is this a current diagnosis for this admission?: Yes Plan: Recheck the potassiums level (2) Hypotension Qualifiers: Hypotension type: unspecified hypotension type Qualified Code(s): I95.9 - Hypotension, unspecified Is this a current diagnosis for this admission?: Yes Plan: all resolved (3) Inflammatory bowel disease (ulcerative colitis) Qualifiers: Ulcerative colitis location: other ulcerative colitis Digestive disease complication type: other complication Qualified Code(s): K51.818 - Other ulcerative colitis with other complication Is this a current diagnosis for this admission?: Yes Plan: Current medications (4) Myopathy Is this a current diagnosis for this admission?: Yes Plan: Physical therapy evaluations (5) COPD (chronic obstructive pulmonary disease) Qualifiers: Emphysema type: unspecified Is this a current diagnosis for this admission?: Yes Plan: Some nebulizer treatments (6) Major depression Qualifiers: Major depression episode severity: unspecified Is this a current diagnosis for this admission?: Yes - Time Time Spent with patient: 15-24 minutes Medications reviewed and adjusted accordingly: Yes Anticipated discharge: Other Within: Other - Plan Summary Plan Summary: Recheck the CBC and Chem-7
[2018-11-26] MEDS: CEFTRIAXONE 1 GM/D5W RTU 1 GM/50 ML RTUPB IV SCH (22:40)
[2018-11-27] MEDS: METRONIDAZOLE 500 MG/NS RTU 500 MG/100 ML RTUPB IV SCH ×4 (02:20→23:07)
[2018-11-27] MEDS: HYDROCORTISONE SOD SUCCINATE INJ/PF 100 MG/2 ML SDV IV SCH ×3 (05:42→21:45)
[2018-11-27] MEDS: PANTOPRAZOLE SODIUM 40 MG TABLET.DR PO SCH (05:42)
[2018-11-27] MEDS: HEPARIN SOD (PORCINE) 5,000 UNIT/ML 1 ML VIAL SUBCUT SCH ×3 (05:42→21:45)
[2018-11-27 05:45] LABS: ABSOLUTE LYMPHOCYTES (AUTO) 0.7 10^3/uL (0.5-4.7); ABSOLUTE MONOCYTES (AUTO) 0.1 10^3/uL (0.1-1.4); ABSOLUTE NEUT (AUTO) 4.3 10^3/uL (1.7-8.2); HEMATOCRIT 26.8 % (36.0-47.0); HEMOGLOBIN 8.6 g/dL (12.0-15.5); LYMPHOCYTES % (AUTO) 14.5 % (13-45); MEAN CORPUSCULAR HEMOGLOBIN 30.5 pg (27.0-33.4); MEAN CORPUSCULAR VOLUME 95 fl (80-97); MONOCYTES % (AUTO) 2.4 % (3-13); PLATELET COUNT 199 10^3/uL (150-450); RED BLOOD COUNT 2.82 10^6/uL (3.72-5.28); RED CELL DISTRIBUTION WIDTH 20.3 % (11.5-14.0); SEGMENTED NEUTROPHILS % (AUTO) 83.1 % (42-78); TOTAL CELLS COUNTED % (AUTO) 100 %; WHITE BLOOD COUNT 5.1 10^3/uL (4.0-10.5)
[2018-11-27 06:13] LABS: ANION GAP 8 (5-19); BLOOD UREA NITROGEN 5 mg/dL (7-20); CARBON DIOXIDE 25 mmol/L (22-30); CHLORIDE 110 mmol/L (98-107); GLUCOSE 129 mg/dL (75-110)
[2018-11-27 06:20] LABS: CALCIUM 6.3 mg/dL (8.4-10.2)
[2018-11-27 06:21] LABS: POTASSIUM 2.5 mmol/L (3.6-5.0)
[2018-11-27] MEDS ORDERED: POTASSIUM CHLORIDE 20 MEQ PACKET PO ONE (06:26)
[2018-11-27] MEDS ORDERED: CALCIUM GLUCONATE 1,000 MG in DEXTROSE 5%-WATER 50 ML IV PRN (08:00)
[2018-11-27] MEDS: POTASSI CL 20 MEQ/50 ML RIDER 20 MEQ/50 ML RTUPB IV SCH ×3 (08:11→20:44)
--- NOTE | 2018-11-27 09:22 | PDOC PROGRESS REPORT ---
Subjective Progress Note for:: 11/27/18 Subjective:: Patient is currently still complaining of a loose stool but no blood in the stools Some mild abdominal cramps No chest pain no short of breath Patient's potassium is low and calcium is low Patient albumin is also low Patient is very depressed Reason For Visit: INTRACTABLE NAUSEA VOMITING,ULCERATIVE COLITIS Physical Exam Vital Signs: Temp Pulse Resp BP Pulse Ox 97.8 F 82 18 92/54 L 94 11/27/18 03:43 11/27/18 07:00 11/27/18 03:43 11/27/18 03:43 11/27/18 08:30 Intake & Output 11/26/18 11/27/18 11/28/18 06:59 06:59 06:59 Intake Total 3110 2595 423 Output Total 925 1925 Balance 2185 670 423 Weight 79.9 kg 79.5 kg General appearance: PRESENT: no acute distress, well-developed, well-nourished Head exam: PRESENT: atraumatic, normocephalic Eye exam: PRESENT: conjunctiva pink, EOMI, PERRLA. ABSENT: scleral icterus Ear exam: PRESENT: normal external ear exam Mouth exam: PRESENT: moist, tongue midline Neck exam: PRESENT: full ROM. ABSENT: carotid bruit, JVD, lymphadenopathy, thyromegaly Respiratory exam: PRESENT: clear to auscultation mayra Cardiovascular exam: PRESENT: RRR. ABSENT: diastolic murmur, rubs, systolic murmur Pulses: PRESENT: normal dorsalis pedis pul, +2 pedal pulses bilateral Vascular exam: PRESENT: normal capillary refill GI/Abdominal exam: PRESENT: normal bowel sounds, soft. ABSENT: distended, guarding, mass, organolmegaly, rebound, tenderness Rectal exam: PRESENT: deferred Neurological exam: PRESENT: alert, awake, oriented to person, oriented to place, oriented to time, oriented to situation, CN II-XII grossly intact. ABSENT: motor sensory deficit Psychiatric exam: PRESENT: appropriate affect, normal mood. ABSENT: homicidal ideation, suicidal ideation Skin exam: PRESENT: dry, intact, warm. ABSENT: cyanosis, rash Results Laboratory Results: 11/27/18 05:23 11/27/18 05:23 11/27/18 11/27/18 05:23 05:23 WBC 5.1 RBC 2.82 L Hgb 8.6 L Hct 26.8 L MCV 95 MCH 30.5 MCHC 32.0 RDW 20.3 H Plt Count 199 Seg Neutrophils % 83.1 H Sodium 142.7 Potassium 2.5 L* Chloride 110 H Carbon Dioxide 25 Anion Gap 8 BUN 5 L Creatinine 0.44 L Est GFR ( Amer) > 60 Glucose 129 H Calcium 6.3 L* 11/21/18 21:40 Blood Blood Culture - Final NO GROWTH IN 5 DAYS 11/21/18 21:28 Blood Blood Culture - Final NO GROWTH IN 5 DAYS 11/17/18 11/17/18 11/18/18 19:11 21:45 03:30 Creatine Kinase < 20 L CK-MB (CK-2) 1.20 0.94 Troponin I < 0.012 < 0.012 11/18/18 11/18/18 11/18/18 03:30 09:42 09:42 Creatine Kinase < 20 L < 20 L CK-MB (CK-2) 1.01 Troponin I < 0.012 Impressions: Abdomen/Pelvis CT 11/17/18 14:22 IMPRESSION: There is diffuse, featureless thickening of the entirety of the colon with mild associated fat stranding, which is decreased compared to prior examination dated 10/11/2018. Findings remain consistent with nonspecific infectious or inflammatory colitis, including ulcerative colitis, which appears improved compared to prior examination. There is no new finding to explain abdominal pain. Chest X-Ray 11/18/18 00:00 IMPRESSION: Blunting of the left costophrenic sulcus which could indicate pleural thickening, small pleural effusion, or a prominent epicardial fat pad. Otherwise, clear lungs. copyright 2011 [employer]- All Rights Reserved Lumbar Spine MRI 11/19/18 00:00 IMPRESSION: Spondylosis and facet arthropathy. Mild spinal stenosis. No acute findings. Assessment & Plan - Diagnosis (1) Hypokalemia Is this a current diagnosis for this admission?: Yes Plan: Replace the potassiums today Recheck the potassiums (2) Hypotension Qualifiers: Hypotension type: unspecified hypotension type Qualified Code(s): I95.9 - Hypotension, unspecified Is this a current diagnosis for this admission?: Yes Plan: all resolved (3) Inflammatory bowel disease (ulcerative colitis) Qualifiers: Ulcerative colitis location: other ulcerative colitis Digestive disease complication type: other complication Qualified Code(s): K51.818 - Other ulcerative colitis with other complication Is this a current diagnosis for this admission?: Yes Plan: Current medications (4) Myopathy Is this a current diagnosis for this admission?: Yes Plan: Physical therapy evaluations (5) COPD (chronic obstructive pulmonary disease) Qualifiers: Emphysema type: unspecified Is this a current diagnosis for this admission?: Yes Plan: Some nebulizer treatments (6) Major depression Qualifiers: Major depression episode severity: unspecified Is this a current diagnosis for this admission?: Yes (7) Hypocalcemia Is this a current diagnosis for this admission?: Yes Plan: Albumin is low Corrected calcium still require calciums Will give her IV calciums Check a PTH Check a vitamin D level - Time Time Spent with patient: 15-24 minutes Medications reviewed and adjusted accordingly: Yes Anticipated discharge: Other Within: Other - Plan Summary Plan Summary: Continues to current medications
[2018-11-27] MEDS: MESALAMINE 400 MG CAPSULE.DR PO SCH ×3 (09:55→17:54)
[2018-11-27] MEDS: CALCIUM CARBONATE 500 MG TABLET PO SCH ×2 (09:55→17:54)
[2018-11-27] MEDS: SERTRALINE HCL 50 MG TABLET PO SCH (09:55)
[2018-11-27] MEDS: UMECLIDINIUM BROMIDE 62.5 MCG/DOSE IH SCH (09:56)
[2018-11-27] MEDS: POTASSI CL 40 MEQ/NS 1L 1,000 ML IV PRN ×2 (10:00→20:38)
[2018-11-27 16:25] LABS: CALCIUM 6.4 mg/dL (8.4-10.2); POTASSIUM 2.7 mmol/L (3.6-5.0)
[2018-11-27] MEDS ORDERED: POTASSIUM CHLORIDE 10 MEQ CAPSULE.ER PO ONE (18:00)
[2018-11-28] MEDS: CEFTRIAXONE 1 GM/D5W RTU 1 GM/50 ML RTUPB IV SCH (00:19)
[2018-11-28] MEDS: POTASSI CL 20 MEQ/50 ML RIDER 20 MEQ/50 ML RTUPB IV SCH (01:11)
[2018-11-28] MEDS: METRONIDAZOLE 500 MG/NS RTU 500 MG/100 ML RTUPB IV SCH ×3 (03:41→15:35)
[2018-11-28] MEDS: HYDROCORTISONE SOD SUCCINATE INJ/PF 100 MG/2 ML SDV IV SCH ×2 (05:21→13:01)
[2018-11-28] MEDS: HEPARIN SOD (PORCINE) 5,000 UNIT/ML 1 ML VIAL SUBCUT SCH ×3 (05:21→21:00)
[2018-11-28] MEDS: PANTOPRAZOLE SODIUM 40 MG TABLET.DR PO SCH (05:21)
[2018-11-28 05:31] LABS: BLOOD UREA NITROGEN 3 mg/dL (7-20); GLUCOSE 121 mg/dL (75-110)
[2018-11-28 05:36] LABS: ANION GAP 5 (5-19); CARBON DIOXIDE 26 mmol/L (22-30); CHLORIDE 113 mmol/L (98-107)
[2018-11-28 06:00] LABS: POTASSIUM 4.2 mmol/L (3.6-5.0)
[2018-11-28 06:02] LABS: CALCIUM 6.6 mg/dL (8.4-10.2)
[2018-11-28 06:12] LABS: ABSOLUTE LYMPHOCYTES (AUTO) 0.8 10^3/uL (0.5-4.7); ABSOLUTE MONOCYTES (AUTO) 0.2 10^3/uL (0.1-1.4); ABSOLUTE NEUT (AUTO) 4.6 10^3/uL (1.7-8.2); BASOPHILS % (AUTO) 0.1 % (0-2); HEMATOCRIT 27.4 % (36.0-47.0); HEMOGLOBIN 8.9 g/dL (12.0-15.5); LYMPHOCYTES % (AUTO) 14.9 % (13-45); MEAN CORPUSCULAR HEMOGLOBIN 30.7 pg (27.0-33.4); MEAN CORPUSCULAR HGB CONC 32.5 g/dL (32.0-36.0); MEAN CORPUSCULAR VOLUME 95 fl (80-97); MONOCYTES % (AUTO) 3.2 % (3-13); PLATELET COUNT 220 10^3/uL (150-450); RED BLOOD COUNT 2.89 10^6/uL (3.72-5.28); RED CELL DISTRIBUTION WIDTH 20.8 % (11.5-14.0); SEGMENTED NEUTROPHILS % (AUTO) 81.8 % (42-78); TOTAL CELLS COUNTED % (AUTO) 100 %; WHITE BLOOD COUNT 5.6 10^3/uL (4.0-10.5)
[2018-11-28] MEDS ORDERED: CALCIUM GLUCONATE 1000 MG/10 ML INJ IV ONE (06:18)
[2018-11-28] MEDS: CALCIUM CARBONATE 500 MG TABLET PO SCH ×2 (10:54→17:34)
[2018-11-28] MEDS: SERTRALINE HCL 50 MG TABLET PO SCH (10:54)
[2018-11-28] MEDS: MESALAMINE 400 MG CAPSULE.DR PO SCH ×3 (10:54→17:33)
[2018-11-28] MEDS: UMECLIDINIUM BROMIDE 62.5 MCG/DOSE IH SCH (10:55)
[2018-11-28] MEDS: CHOLECALCIFEROL (D3) 400 UNIT TABLET PO SCH (17:35)
[2018-11-28] MEDS ORDERED: FUROSEMIDE INJ/PF 100 MG/10 ML SDV IV ONE (17:36)
--- NOTE | 2018-11-28 17:43 | PDOC PROGRESS REPORT ---
Subjective Progress Note for:: 11/28/18 Subjective:: Patient was seen by the bedside, she has severe hypoalbuminemia due to combination of poor intake and also chronic diarrhea, the antibiotic will be discontinued, the stool is no longer foul-smelling to suggest infection she has a lot of third spacing due to hypoalbuminemia, she will be given 25 g of albumin one-time dose with 80 mg of furosemide. We will discontinue intravenous hydrocortisone, transition to p.o. prednisone. Reason For Visit: INTRACTABLE NAUSEA VOMITING,ULCERATIVE COLITIS Physical Exam Vital Signs: Temp Pulse Resp BP Pulse Ox 99.3 F 74 16 120/68 97 11/28/18 15:23 11/28/18 15:23 11/28/18 15:23 11/28/18 15:23 11/28/18 15:23 Intake & Output 11/27/18 11/28/18 11/29/18 06:59 06:59 06:59 Intake Total 2595 3828 100 Output Total 1925 2560 Balance 670 1268 100 Weight 79.5 kg 75.6 kg General appearance: PRESENT: no acute distress, other - Patient is alert chronically ill looking Eye exam: PRESENT: PERRLA Respiratory exam: PRESENT: clear to auscultation mayra Cardiovascular exam: PRESENT: +S1, +S2 GI/Abdominal exam: PRESENT: soft Neurological exam: PRESENT: alert Skin exam: PRESENT: other - Loss of skin turgor Results Laboratory Results: 11/28/18 05:52 11/28/18 04:43 11/28/18 11/28/18 11/28/18 04:43 04:43 05:52 WBC Cancelled 5.6 RBC Cancelled 2.89 L Hgb Cancelled 8.9 L Hct Cancelled 27.4 L MCV Cancelled 95 MCH Cancelled 30.7 MCHC Cancelled 32.5 RDW Cancelled 20.8 H Plt Count Cancelled 220 Seg Neutrophils % Cancelled 81.8 H Sodium 144.3 Potassium 4.2 D Chloride 113 H Carbon Dioxide 26 Anion Gap 5 BUN 3 L Creatinine 0.36 L Est GFR ( Amer) > 60 Glucose 121 H Calcium 6.6 L* 11/17/18 11/17/18 11/18/18 19:11 21:45 03:30 Creatine Kinase < 20 L CK-MB (CK-2) 1.20 0.94 Troponin I < 0.012 < 0.012 11/18/18 11/18/18 11/18/18 03:30 09:42 09:42 Creatine Kinase < 20 L < 20 L CK-MB (CK-2) 1.01 Troponin I < 0.012 Impressions: Abdomen/Pelvis CT 11/17/18 14:22 IMPRESSION: There is diffuse, featureless thickening of the entirety of the colon with mild associated fat stranding, which is decreased compared to prior examination dated 10/11/2018. Findings remain consistent with nonspecific infectious or inflammatory colitis, including ulcerative colitis, which appears improved compared to prior examination. There is no new finding to explain abdominal pain. Chest X-Ray 11/18/18 00:00 IMPRESSION: Blunting of the left costophrenic sulcus which could indicate pleural thickening, small pleural effusion, or a prominent epicardial fat pad. Otherwise, clear lungs. copyright 2010 [employer]- All Rights Reserved Lumbar Spine MRI 11/19/18 00:00 IMPRESSION: Spondylosis and facet arthropathy. Mild spinal stenosis. No acute findings. Assessment & Plan - Diagnosis (1) Hypotension Qualifiers: Hypotension type: unspecified hypotension type Qualified Code(s): I95.9 - Hypotension, unspecified Is this a current diagnosis for this admission?: Yes Plan: This is resolved (2) Ulcerative colitis Qualifiers: Ulcerative colitis location: ulcerative pancolitis Digestive disease complication type: with rectal bleeding Qualified Code(s): K51.011 - Ulcerative (chronic) pancolitis with rectal bleeding Is this a current diagnosis for this admission?: Yes Plan: Discontinue intravenous hydrocortisone, start p.o. prednisone (3) Myopathy Is this a current diagnosis for this admission?: Yes (4) Hypokalemia Is this a current diagnosis for this admission?: Yes Plan: Continue potassium replacement (5) Hypoalbuminemia due to protein-calorie malnutrition Is this a current diagnosis for this admission?: Yes (6) Edema due to hypoalbuminemia Is this a current diagnosis for this admission?: Yes Plan: Give a dose of albumin, 25 g with Lasix 80 mg IV (7) Hypocalcemia Is this a current diagnosis for this admission?: Yes (8) Hypovitaminosis D Is this a current diagnosis for this admission?: Yes Plan: Replace vitamin D - Time Time Spent with patient: 35 or more minutes
[2018-11-28] MEDS ORDERED: ALBUMIN HUMAN 12.5 GM/50 ML RTUINJ IV ONE (18:45)
[2018-11-28] MEDS ORDERED: PREDNISONE 20 MG TABLET ONE (20:56)
[2018-11-28] MEDS: PREDNISONE 20 MG TABLET PO SCH (21:01)
[2018-11-28] MEDS ORDERED: TRAMADOL HCL 50 MG TABLET PO PRN (21:28)
[2018-11-28] MEDS ORDERED: ONDANSETRON HCL INJ/PF 4 MG/2 ML SDV IV PRN (21:28)
[2018-11-29] MEDS: POTASSI CL 40 MEQ/NS 1L 1,000 ML IV PRN ×3 (00:27→21:23)
[2018-11-29 05:48] LABS: ANION GAP 6 (5-19); BLOOD UREA NITROGEN 4 mg/dL (7-20); CARBON DIOXIDE 34 mmol/L (22-30); CHLORIDE 105 mmol/L (98-107); GLUCOSE 160 mg/dL (75-110)
[2018-11-29 06:12] LABS: CALCIUM 6.7 mg/dL (8.4-10.2); POTASSIUM 2.6 mmol/L (3.6-5.0)
[2018-11-29] MEDS: HEPARIN SOD (PORCINE) 5,000 UNIT/ML 1 ML VIAL SUBCUT SCH ×3 (06:46→22:40)
[2018-11-29] MEDS: PANTOPRAZOLE SODIUM 40 MG TABLET.DR PO SCH (06:46)
[2018-11-29] MEDS: CALCIUM CARBONATE 500 MG TABLET PO SCH ×2 (10:15→18:50)
[2018-11-29] MEDS: MESALAMINE 400 MG CAPSULE.DR PO SCH ×3 (10:15→18:47)
[2018-11-29] MEDS: SERTRALINE HCL 50 MG TABLET PO SCH (10:15)
[2018-11-29] MEDS: CHOLECALCIFEROL (D3) 400 UNIT TABLET PO SCH (10:15)
[2018-11-29] MEDS: PREDNISONE 20 MG TABLET PO SCH (10:16)
[2018-11-29] MEDS: UMECLIDINIUM BROMIDE 62.5 MCG/DOSE IH SCH (10:16)
[2018-11-29] MEDS: POTASSI CL 20 MEQ/50 ML RIDER 20 MEQ/50 ML RTUPB IV SCH ×2 (13:50→15:38)
[2018-11-29] MEDS: DIPHENOXYLATE HCL/ATROP SULF 2.5-0.025 MG TABLET PO SCH (18:50)
[2018-11-29] MEDS: MEGESTROL ACETATE SUSP 400 MG/10 ML UDCUP PO SCH (18:50)
--- NOTE | 2018-11-29 20:49 | PDOC PROGRESS REPORT ---
Subjective Progress Note for:: 11/29/18 Subjective:: Patient seen by the bedside, she still have diarrhea, I am hoping that she can be discharged in 2 days for rehabilitation, she is still not eating very well, start Lomotil for diarrhea, start Megace appetite stimulant Reason For Visit: INTRACTABLE NAUSEA VOMITING,ULCERATIVE COLITIS Physical Exam Vital Signs: Temp Pulse Resp BP Pulse Ox 97.6 F 78 16 114/61 97 11/29/18 20:01 11/29/18 20:01 11/29/18 20:01 11/29/18 20:01 11/29/18 20:01 Intake & Output 11/28/18 11/29/18 11/30/18 06:59 06:59 06:59 Intake Total 3828 1024 1638 Output Total 2560 4800 525 Balance 1268 -5566 1113 Weight 75.6 kg 79.8 kg General appearance: PRESENT: no acute distress Eye exam: PRESENT: PERRLA Respiratory exam: PRESENT: clear to auscultation mayra Cardiovascular exam: PRESENT: +S1, +S2 GI/Abdominal exam: PRESENT: soft Neurological exam: PRESENT: alert Results Laboratory Results: 11/28/18 05:52 11/29/18 04:22 11/29/18 04:22 Sodium 144.6 Potassium 2.6 L* D Chloride 105 Carbon Dioxide 34 H Anion Gap 6 BUN 4 L Creatinine 0.45 L Est GFR ( Amer) > 60 Glucose 160 H Calcium 6.7 L* 11/17/18 11/17/18 11/18/18 19:11 21:45 03:30 Creatine Kinase < 20 L CK-MB (CK-2) 1.20 0.94 Troponin I < 0.012 < 0.012 11/18/18 11/18/18 11/18/18 03:30 09:42 09:42 Creatine Kinase < 20 L < 20 L CK-MB (CK-2) 1.01 Troponin I < 0.012 Impressions: Abdomen/Pelvis CT 11/17/18 14:22 IMPRESSION: There is diffuse, featureless thickening of the entirety of the colon with mild associated fat stranding, which is decreased compared to prior examination dated 10/11/2018. Findings remain consistent with nonspecific infectious or inflammatory colitis, including ulcerative colitis, which appears improved compared to prior examination. There is no new finding to explain abdominal pain. Chest X-Ray 11/18/18 00:00 IMPRESSION: Blunting of the left costophrenic sulcus which could indicate pleural thickening, small pleural effusion, or a prominent epicardial fat pad. Otherwise, clear lungs. copyright 2011 [employer]- All Rights Reserved Lumbar Spine MRI 11/19/18 00:00 IMPRESSION: Spondylosis and facet arthropathy. Mild spinal stenosis. No acute findings. Assessment & Plan - Diagnosis (1) Hypotension Qualifiers: Hypotension type: unspecified hypotension type Qualified Code(s): I95.9 - Hypotension, unspecified Is this a current diagnosis for this admission?: Yes (2) Ulcerative colitis Qualifiers: Ulcerative colitis location: ulcerative pancolitis Digestive disease complication type: with rectal bleeding Qualified Code(s): K51.011 - Ulcerative (chronic) pancolitis with rectal bleeding Is this a current diagnosis for this admission?: Yes (3) Myopathy Is this a current diagnosis for this admission?: Yes (4) Hypokalemia Is this a current diagnosis for this admission?: Yes Plan: Replace potassium (5) Hypoalbuminemia due to protein-calorie malnutrition Is this a current diagnosis for this admission?: Yes (6) Edema due to hypoalbuminemia Is this a current diagnosis for this admission?: Yes (7) Hypocalcemia Is this a current diagnosis for this admission?: Yes (8) Hypovitaminosis D Is this a current diagnosis for this admission?: Yes - Time Time Spent with patient: 35 or more minutes - Plan Summary Plan Summary: Start Megace, start lomotil. I had a long discussion with patient's family about plan of care
[2018-11-30] MEDS: POTASSI CL 40 MEQ/NS 1L 1,000 ML IV PRN ×2 (05:39→15:55)
[2018-11-30] MEDS: HEPARIN SOD (PORCINE) 5,000 UNIT/ML 1 ML VIAL SUBCUT SCH ×3 (05:39→22:18)
[2018-11-30] MEDS: PANTOPRAZOLE SODIUM 40 MG TABLET.DR PO SCH (05:39)
[2018-11-30 07:21] LABS: ANION GAP 5 (5-19); BLOOD UREA NITROGEN 5 mg/dL (7-20); CALCIUM 7.3 mg/dL (8.4-10.2); CARBON DIOXIDE 32 mmol/L (22-30); CHLORIDE 109 mmol/L (98-107); GLUCOSE 103 mg/dL (75-110); POTASSIUM 4.3 mmol/L (3.6-5.0)
[2018-11-30] MEDS: CHOLECALCIFEROL (D3) 400 UNIT TABLET PO SCH (09:18)
[2018-11-30] MEDS: CALCIUM CARBONATE 500 MG TABLET PO SCH ×2 (09:18→18:54)
[2018-11-30] MEDS: PREDNISONE 20 MG TABLET PO SCH (09:18)
[2018-11-30] MEDS: DIPHENOXYLATE HCL/ATROP SULF 2.5-0.025 MG TABLET PO SCH ×3 (09:18→18:54)
[2018-11-30] MEDS: SERTRALINE HCL 50 MG TABLET PO SCH (09:18)
[2018-11-30] MEDS: MESALAMINE 400 MG CAPSULE.DR PO SCH ×3 (09:18→18:54)
[2018-11-30] MEDS: MEGESTROL ACETATE SUSP 400 MG/10 ML UDCUP PO SCH (09:19)
[2018-11-30] MEDS: UMECLIDINIUM BROMIDE 62.5 MCG/DOSE IH SCH (09:19)
--- NOTE | 2018-11-30 17:31 | PDOC PROGRESS REPORT ---
Subjective Progress Note for:: 11/30/18 Subjective:: Patient was seen by the bedside, yesterday she was started on Lomotil for the control of diarrhea, Megace for appetite stimulation. She has less diarrhea today, the appetite has picked up to some degree, the electrolytes especially the potassium is normalized. She will be discharged back to [facility] tomorrow for physical therapy and rehabilitation before she goes home. She will continue tapered dose prednisone as earlier planned, [facility] Dr. Martin Reason For Visit: INTRACTABLE NAUSEA VOMITING,ULCERATIVE COLITIS Physical Exam Vital Signs: Temp Pulse Resp BP Pulse Ox 99.3 F 104 H 17 91/57 L 96 11/30/18 14:54 11/30/18 14:54 11/30/18 14:54 11/30/18 14:54 11/30/18 14:54 Intake & Output 11/29/18 11/30/18 12/01/18 06:59 06:59 06:59 Intake Total 1024 3515 1320 Output Total 4800 950 500 Balance -3776 2565 820 Weight 79.8 kg 78.8 kg 78.8 kg General appearance: PRESENT: no acute distress Eye exam: PRESENT: PERRLA Respiratory exam: PRESENT: clear to auscultation mayra Cardiovascular exam: PRESENT: +S1, +S2 GI/Abdominal exam: PRESENT: soft Neurological exam: PRESENT: alert Results Laboratory Results: 11/28/18 05:52 11/30/18 05:33 11/30/18 05:33 Sodium 146.1 H Potassium 4.3 Chloride 109 H Carbon Dioxide 32 H Anion Gap 5 BUN 5 L Creatinine 0.43 L Est GFR ( Amer) > 60 Glucose 103 Calcium 7.3 L 11/17/18 11/17/18 11/18/18 19:11 21:45 03:30 Creatine Kinase < 20 L CK-MB (CK-2) 1.20 0.94 Troponin I < 0.012 < 0.012 11/18/18 11/18/18 11/18/18 03:30 09:42 09:42 Creatine Kinase < 20 L < 20 L CK-MB (CK-2) 1.01 Troponin I < 0.012 Impressions: Abdomen/Pelvis CT 11/17/18 14:22 IMPRESSION: There is diffuse, featureless thickening of the entirety of the colon with mild associated fat stranding, which is decreased compared to prior examination dated 10/11/2018. Findings remain consistent with nonspecific infectious or inflammatory colitis, including ulcerative colitis, which appears improved compared to prior examination. There is no new finding to explain abdominal pain. Chest X-Ray 11/18/18 00:00 IMPRESSION: Blunting of the left costophrenic sulcus which could indicate pleural thickening, small pleural effusion, or a prominent epicardial fat pad. Otherwise, clear lungs. copyright 2011 [employer]- All Rights Reserved Lumbar Spine MRI 11/19/18 00:00 IMPRESSION: Spondylosis and facet arthropathy. Mild spinal stenosis. No acute findings. Assessment & Plan - Diagnosis (1) Hypotension Qualifiers: Hypotension type: unspecified hypotension type Qualified Code(s): I95.9 - Hypotension, unspecified Is this a current diagnosis for this admission?: Yes Plan: Resolved (2) Ulcerative colitis Qualifiers: Ulcerative colitis location: ulcerative pancolitis Digestive disease complication type: with rectal bleeding Qualified Code(s): K51.011 - Ulcerative (chronic) pancolitis with rectal bleeding Is this a current diagnosis for this admission?: Yes (3) Myopathy Is this a current diagnosis for this admission?: Yes (4) Hypokalemia Is this a current diagnosis for this admission?: Yes (5) Hypoalbuminemia due to protein-calorie malnutrition Is this a current diagnosis for this admission?: Yes (6) Edema due to hypoalbuminemia Is this a current diagnosis for this admission?: Yes (7) Hypocalcemia Is this a current diagnosis for this admission?: Yes (8) Hypovitaminosis D Is this a current diagnosis for this admission?: Yes - Time Time Spent with patient: 25-34 minutes
--- NOTE | 2018-11-30 17:42 | PDOC TRANSFER SUMMARY ---
Impression - Admit/DC Date/PCP Admission Date/Primary Care Provider: 11/17/18 16:46 ARTIS VENEGAS MD Discharge Date: 12/01/18 - Discharge Diagnosis (1) Hypotension Is this a current diagnosis for this admission?: Yes (2) Ulcerative colitis Is this a current diagnosis for this admission?: Yes (3) Myopathy Is this a current diagnosis for this admission?: Yes (4) Hypokalemia Is this a current diagnosis for this admission?: Yes (5) Hypoalbuminemia due to protein-calorie malnutrition Is this a current diagnosis for this admission?: Yes (6) Edema due to hypoalbuminemia Is this a current diagnosis for this admission?: Yes (7) Hypocalcemia Is this a current diagnosis for this admission?: Yes (8) Hypovitaminosis D Is this a current diagnosis for this admission?: Yes - Additional Information Referrals: ARTIS VENEGAS MD [Primary Care Provider] - 12/02/18 9:45 am Home Medications: Albuterol Sulfate [Proair HFA Inhalation Aerosol 8.5 gm MDI] 2 puff IH Q6HP PRN 11/18/18 Aspirin [Ecotrin 81 mg EC Tablet] 81 mg PO DAILY 11/18/18 Nystatin/Dexameth/Diphen [Magic Mouthwash] 5 ml PO QID 11/18/18 Pravastatin Sodium [Pravachol] 10 mg PO QHS 11/18/18 Prednisone [Deltasone 20 mg Tablet] 40 mg PO DAILY 11/18/18 Tiotropium [place] [Spiriva Handihaler 5 Cap/Kit (18 Mcg/Cap)] 1 cap IH DAILY 11/18/18 Calcium Carbonate [Os-[place] 500 mg Tablet (Oyster-Shell)] 1,000 mg PO BID tablet 11/30/18 Cholecalciferol (Vitamin D3) [Vitamin D3 400 Unit Tablet] 400 unit PO DAILY tablet 11/30/18 Diphenoxylate HCl/Atrop Sulf [Lomotil 2.5 mg Tablet] 1 tab PO TID tablet 11/30/18 Megestrol Acetate [Megace Laura 400 mg/10 ml Udcup] 400 mg PO DAILY udc 11/30/18 Mesalamine [Asacol Sr 400 mg Capsule] 1,600 mg PO TID capsule. 11/30/18 Sertraline HCl [Zoloft 50 mg Tablet] 100 mg PO DAILY tablet 11/30/18 History of Present Illiness History of Present Illness: NAN ALMEIDA is a 73 year old female, Patient is well-known to me she has a history of severe ulcerative colitis involving the whole length of the colon, she was recently discharged from this hospital presently in the senior care undergoing rehabilitation, she came to the emergency room for evaluation of abdominal pain, diarrhea, and weakness. She was evaluated in the emergency room, a CAT scan of the abdomen and pelvis with IV contrast was obtained, it demonstrated diffuse thickening of the entirety of the colon normal appendix t here was mild associated fat stranding which was decreased when compared to prior examination dated 10/11/2018. There was associated hypotension in the emergency room she was treated with IV fluid, the ED physician want her admitted for Management Hospital Course Hospital Course: Patient was admitted for the management of hypotension, ulcerative colitis with acute infection, electrolyte derangement, hypokalemia.She was treated with intravenous hydrocortisone, IV fluid IV antibiotic, she has severe protracted infected foul-smelling purulent diarrhea that was consistent with severe infection. She was treated with IV antibiotic Flagyl and Rocephin with good outcome. No specific pathogen was cultured from the feces. She also had intravenous hydrocortisone she was seen by GI Dr. Martin, she was on prednisone 40 mg with taper dosing regimen, this was transitioned to stress dose hydrocortisone initially 50 mg IV every 8 subsequently, 100 mg IV every 8. Patient is very deconditioned with Mallampati IV able to move she was seen by physical therapy underwent rehabilitation and PT.She was also obviously depressed, with depressed affect, she was started on sertraline.She had extremely poor intake with severe hypoalbuminemia, she received 25 g of IV albumin she also had persistent hypocalcemia when corrected for albumin is actually normal she has a low vitamin D she was started on replacement therapyPatient is improved to some extent the plan is to transfer back to senior care for rehabilitation for muscle strengthening Physical Exam Vital Signs: Temp Pulse Resp BP Pulse Ox 99.3 F 104 H 17 91/57 L 96 11/30/18 14:54 11/30/18 14:54 11/30/18 14:54 11/30/18 14:54 11/30/18 14:54 Intake & Output 11/29/18 11/30/18 12/01/18 06:59 06:59 06:59 Intake Total 1024 3515 1320 Output Total 4800 950 500 Balance -3776 2565 820 Weight 79.8 kg 78.8 kg 78.8 kg General appearance: PRESENT: no acute distress Eye exam: PRESENT: PERRLA Respiratory exam: PRESENT: clear to auscultation mayra Cardiovascular exam: PRESENT: +S1, +S2 GI/Abdominal exam: PRESENT: soft Neurological exam: PRESENT: alert, CN II-XII grossly intact Results Laboratory Results: WBC 5.6 10^3/uL (4.0-10.5) 11/28/18 05:52 RBC 2.89 10^6/uL (3.72-5.28) L 11/28/18 05:52 Hgb 8.9 g/dL (12.0-15.5) L 11/28/18 05:52 Hct 27.4 % (36.0-47.0) L 11/28/18 05:52 MCV 95 fl (80-97) 11/28/18 05:52 MCH 30.7 pg (27.0-33.4) 11/28/18 05:52 MCHC 32.5 g/dL (32.0-36.0) 11/28/18 05:52 RDW 20.8 % (11.5-14.0) H 11/28/18 05:52 Plt Count 220 10^3/uL (150-450) 11/28/18 05:52 Lymph % (Auto) 14.9 % (13-45) 11/28/18 05:52 [place] % (Auto) 3.2 % (3-13) 11/28/18 05:52 Eos % (Auto) 0.0 % (0-6) 11/28/18 05:52 Baso % (Auto) 0.1 % (0-2) 11/28/18 05:52 Absolute Neuts (auto) 4.6 10^3/uL (1.7-8.2) 11/28/18 05:52 Absolute Lymphs (auto) 0.8 10^3/uL (0.5-4.7) 11/28/18 05:52 Absolute Monos (auto) 0.2 10^3/uL (0.1-1.4) 11/28/18 05:52 Absolute Eos (auto) 0.0 10^3/uL (0.0-0.6) 11/28/18 05:52 Absolute Basos (auto) 0.0 10^3/uL (0.0-0.2) 11/28/18 05:52 Total Counted 100 11/25/18 09:37 Seg Neutrophils % 81.8 % (42-78) H 11/28/18 05:52 Seg Neuts % (Manual) 86 % (42-78) H 11/25/18 09:37 Band Neutrophils % 2 % (3-5) L 11/25/18 09:37 Lymphocytes % (Manual) 8 % (13-45) L 11/25/18 09:37 Atypical Lymphs % 1 % (0) 11/22/18 04:47 Monocytes % (Manual) 3 % (3-13) 11/25/18 09:37 Eosinophils % (Manual) 0 % (0-6) 11/25/18 09:37 Basophils % (Manual) 0 % (0-2) 11/25/18 09:37 Metamyelocytes % 1 % (0) H 11/25/18 09:37 Abs Neuts (Manual) 6.1 10^3/uL (1.7-8.2) 11/25/18 09:37 Abs Lymphs (Manual) 0.5 10^3/uL (0.5-4.7) 11/25/18 09:37 Abs Monocytes (Manual) 0.2 10^3/uL (0.1-1.4) 11/25/18 09:37 Absolute Eos (Manual) 0.0 10^3/uL (0.0-0.6) 11/25/18 09:37 Abs Basophils (Manual) 0.0 10^3/uL (0.0-0.2) 11/25/18 09:37 Nucleated RBCs 3 /100 WBC (0) 11/22/18 04:47 Smudge Cells Not Reportable 11/17/18 13:15 Toxic Granulation 3+ 11/17/18 13:15 Toxic Vacuolation PRESENT 11/17/18 13:15 Platelet Estimate Cancelled 11/28/18 04:43 Clumped Platelets PRESENT 11/23/18 11:44 Platelet Comment ADEQUATE 11/25/18 09:37 Polychromasia SLIGHT 11/23/18 11:44 Hypochromasia 1+ 11/21/18 20:35 Poikilocytosis SLIGHT 11/25/18 09:37 Anisocytosis 2+ 11/25/18 09:37 Target Cells SLIGHT 11/22/18 04:47 Tear Drop Cells SLIGHT 11/23/18 11:44 Ovalocytes SLIGHT 11/25/18 09:37 Schistocytes SLIGHT 11/17/18 13:15 PT 16.7 SEC (11.4-15.4) H 11/17/18 19:11 INR 1.34 11/17/18 19:11 APTT 26.9 SEC (23.5-35.8) 11/17/18 19:11 Sodium 146.1 mmol/L (137-145) H 11/30/18 05:33 Potassium 4.3 mmol/L (3.6-5.0) 11/30/18 05:33 Chloride 109 mmol/L (98-107) H 11/30/18 05:33 Carbon Dioxide 32 mmol/L (22-30) H 11/30/18 05:33 Anion Gap 5 (5-19) 11/30/18 05:33 BUN 5 mg/dL (7-20) L 11/30/18 05:33 Creatinine 0.43 mg/dL (0.52-1.25) L 11/30/18 05:33 Est GFR ( Amer) > 60 (>60) 11/30/18 05:33 Est GFR (MDRD) Non-Af > 60 (>60) 11/30/18 05:33 Glucose 103 mg/dL (75-110) 11/30/18 05:33 Hemoglobin A1c % 5.9 % (4.7-6.0) 11/18/18 03:30 Lactic Acid 1.6 mmol/L (0.7-2.1) 11/17/18 15:05 Calcium 7.3 mg/dL (8.4-10.2) L 11/30/18 05:33 Phosphorus 4.5 mg/dL (2.5-4.5) 11/17/18 19:11 Magnesium 1.8 mg/dL (1.6-2.3) 11/27/18 15:25 Total Bilirubin 0.5 mg/dL (0.2-1.3) 11/25/18 09:37 Direct Bilirubin 0.5 mg/dL (0.0-0.4) H 11/25/18 09:37 Neonat Total Bilirubin Not Reportable 11/25/18 09:37 Neonat Direct Bilirubin Not Reportable 11/25/18 09:37 Neonat Indirect Bili Not Reportable 11/25/18 09:37 AST 18 U/L (14-36) 11/25/18 09:37 ALT 18 U/L (<35) 11/25/18 09:37 Alkaline Phosphatase 368 U/L (38-126) H 11/25/18 09:37 Ammonia < 8.7 umol/L (9-33) L 11/17/18 19:11 Creatine Kinase < 20 U/L (30-135) L 11/18/18 09:42 CK-MB (CK-2) 1.01 ng/mL (<4.55) 11/18/18 09:42 Troponin I < 0.012 ng/mL 11/18/18 09:42 Total Protein 4.5 g/dL (6.3-8.2) L 11/25/18 09:37 Albumin 2.0 g/dL (3.5-5.0) L 11/25/18 09:37 Triglycerides 167 mg/dL (<150) H 11/18/18 03:30 Cholesterol 64.46 mg/dL (0-200) 11/18/18 03:30 LDL Cholesterol Direct < 30 mg/dL (<100) 11/18/18 03:30 VLDL Cholesterol 33.4 mg/dL (10-31) H 11/18/18 03:30 HDL Cholesterol 21 mg/dL (>40) L 11/18/18 03:30 Amylase < 30 U/L (30-110) L 11/17/18 19:11 Lipase Cancelled 11/17/18 19:11 Vitamin D 25-Hydroxy < 12.8 ng/mL (14.7-68.3) L 11/27/18 15:25 TSH 0.62 uIU/mL (0.47-4.68) 11/17/18 19:11 Free T4 0.91 ng/dL (0.78-2.19) 11/17/18 19:11 PTH Intact 181.5 pg/mL (10.0-65.0) H 11/27/18 15:25 Urine Color YELLOW 11/17/18 21:30 Urine Appearance CLEAR 11/17/18 21:30 Urine pH 6.0 (5.0-9.0) 11/17/18 21:30 Ur Specific [place] 1.051 11/17/18 21:30 Urine Protein NEGATIVE mg/dL (NEGATIVE) 11/17/18 21:30 Urine Glucose (UA) NEGATIVE mg/dL (NEGATIVE) 11/17/18 21:30 Urine Ketones 20 mg/dL (NEGATIVE) H 11/17/18 21:30 Urine Blood NEGATIVE (NEGATIVE) 11/17/18 21:30 Urine Nitrite NEGATIVE (NEGATIVE) 11/17/18 21:30 Urine Bilirubin NEGATIVE (NEGATIVE) 11/17/18 21:30 Urine Urobilinogen NEGATIVE mg/dL (<2.0) 11/17/18 21:30 Ur Leukocyte Esterase NEGATIVE (NEGATIVE) 11/17/18 21:30 Urine WBC (Auto) 2 /HPF 11/17/18 21:30 Urine RBC (Auto) 1 /HPF 11/17/18 21:30 U Hyaline Cast (Auto) 7 /LPF 11/17/18 13:27 Squamous Epi Cells Auto 1 /HPF 11/17/18 21:30 Urine Mucus (Auto) RARE /LPF 11/17/18 21:30 Urine Ascorbic Acid NEGATIVE (NEGATIVE) 11/17/18 21:30 Stool Occult Blood NEGATIVE (NEGATIVE) 11/21/18 16:15 Stool for White Cells MANY H 11/21/18 16:15 Stl C. Difficile GDH Ag NEGATIVE (NEGATIVE) 11/21/18 16:15 Stl C.difficile Tox A&B NEGATIVE (NEGATIVE) 11/21/18 16:15 Slides for Path Review Cancelled 11/28/18 04:43 11/17/18 11/18/18 11/18/18 21:45 03:30 09:42 CK-MB (CK-2) 1.20 0.94 1.01 Troponin I < 0.012 < 0.012 < 0.012 Impressions: Abdomen/Pelvis CT 11/17/18 14:22 IMPRESSION: There is diffuse, featureless thickening of the entirety of the colon with mild associated fat stranding, which is decreased compared to prior examination dated 10/11/2018. Findings remain consistent with nonspecific infectious or inflammatory colitis, including ulcerative colitis, which appears improved compared to prior examination. There is no new finding to explain abdominal pain. Chest X-Ray 11/18/18 00:00 IMPRESSION: Blunting of the left costophrenic sulcus which could indicate pleural thickening, small pleural effusion, or a prominent epicardial fat pad. Otherwise, clear lungs. copyright 2011 [employer]- All Rights Reserved Lumbar Spine MRI 11/19/18 00:00 IMPRESSION: Spondylosis and facet arthropathy. Mild spinal stenosis. No acute findings. Plan Health Concerns: Patient will continue to taper dose prednisone as earlier prescribed before she was readmitted the senior care staff will follow the regimen of the prednisone that she was on before this admission Stroke Is this a Stroke Patient?: No Acute Heart Failure - Is this a Heart Failure Patient?: No
[2018-12-01] MEDS: POTASSI CL 40 MEQ/NS 1L 1,000 ML IV PRN ×2 (01:32→19:20)
[2018-12-01] MEDS: PANTOPRAZOLE SODIUM 40 MG TABLET.DR PO SCH (05:24)
[2018-12-01] MEDS: HEPARIN SOD (PORCINE) 5,000 UNIT/ML 1 ML VIAL SUBCUT SCH ×3 (05:24→23:39)
[2018-12-01] MEDS: MESALAMINE 400 MG CAPSULE.DR PO SCH ×3 (10:25→17:41)
[2018-12-01] MEDS: CHOLECALCIFEROL (D3) 400 UNIT TABLET PO SCH (10:25)
[2018-12-01] MEDS: DIPHENOXYLATE HCL/ATROP SULF 2.5-0.025 MG TABLET PO SCH ×3 (10:26→17:41)
[2018-12-01] MEDS: SERTRALINE HCL 50 MG TABLET PO SCH (10:26)
[2018-12-01] MEDS: PREDNISONE 20 MG TABLET PO SCH (10:26)
[2018-12-01] MEDS: CALCIUM CARBONATE 500 MG TABLET PO SCH ×2 (10:26→17:41)
[2018-12-01] MEDS: UMECLIDINIUM BROMIDE 62.5 MCG/DOSE IH SCH (10:31)
[2018-12-01] MEDS: MEGESTROL ACETATE SUSP 400 MG/10 ML UDCUP PO SCH (10:32)
[2018-12-01] MEDS: BETHANECHOL CHLORIDE 25 MG TABLET PO SCH ×2 (15:29→23:39)
[2018-12-02] MEDS: HYDROMORPHONE HCL INJ/PF 2 MG/ML AMPULE IV PRN ×2 (04:44→19:29)
[2018-12-02] MEDS: POTASSI CL 40 MEQ/NS 1L 1,000 ML IV PRN (05:18)
[2018-12-02] MEDS: BETHANECHOL CHLORIDE 25 MG TABLET PO SCH ×2 (05:18→14:08)
[2018-12-02] MEDS: PANTOPRAZOLE SODIUM 40 MG TABLET.DR PO SCH (05:18)
[2018-12-02] MEDS: HEPARIN SOD (PORCINE) 5,000 UNIT/ML 1 ML VIAL SUBCUT SCH ×2 (05:18→14:13)
[2018-12-02] MEDS: PREDNISONE 20 MG TABLET PO SCH (09:46)
[2018-12-02] MEDS: SERTRALINE HCL 50 MG TABLET PO SCH (09:46)
[2018-12-02] MEDS: MESALAMINE 400 MG CAPSULE.DR PO SCH ×3 (09:46→18:25)
[2018-12-02] MEDS: CALCIUM CARBONATE 500 MG TABLET PO SCH ×2 (09:46→18:26)
[2018-12-02] MEDS: DIPHENOXYLATE HCL/ATROP SULF 2.5-0.025 MG TABLET PO SCH ×3 (09:46→18:26)
[2018-12-02] MEDS: CHOLECALCIFEROL (D3) 400 UNIT TABLET PO SCH (09:46)
[2018-12-02] MEDS: MEGESTROL ACETATE SUSP 400 MG/10 ML UDCUP PO SCH (09:47)
[2018-12-02] MEDS: UMECLIDINIUM BROMIDE 62.5 MCG/DOSE IH SCH (09:47)
[2018-12-02] MEDS ORDERED: INFLUENZA QUAD (6MOS+) 2019-20 VAC 0.5 ML SYR IM ONE (20:00)
[2018-12-06 17:38] VITALS: BP 145/98
== END 2018-12-02 19:46 | DRG 385 ==
LOC: ER 12:52 → EH 16:46 → 3N 19:37 → 3W 11-19 17:54
PROVIDERS: ADMIT Internal Medicine; ATTEND Internal Medicine
DX: K51.011 Ulcerative (chronic) pancolitis with rectal bleeding (principal); E43 Unspecified severe protein-calorie malnutrition; E83.51 Hypocalcemia; G72.9 Myopathy, unspecified; I95.9 Hypotension, unspecified; E87.6 Hypokalemia; E55.9 Vitamin D deficiency, unspecified; E78.5 Hyperlipidemia, unspecified; I10 Essential (primary) hypertension; J44.9 Chronic obstructive pulmonary disease, unspecified; K21.9 Gastro-esophageal reflux disease without esophagitis; F32.9 Major depressive disorder, single episode, unspecified; E78.00 Pure hypercholesterolemia, unspecified; Z79.52 Long term (current) use of systemic steroids; Z79.899 Other long term (current) drug therapy; Z23 Encounter for immunization
CPT/HCPCS: 36415; 51702; 71045; 72148; 74177; 80048; 80053; 80061; 81001; 82140; 82150; 82272; 82306; 82310; 82550; 82553; 83036; 83605; 83690; 83735; 83970; 84100; 84132; 84439; 84443; 84484; 85025; 85610; 85730; 87040; 87045; 87070; 87205; 87324; 87449; 89055; 90686; 96361; 96374; 96375; 99291; J0610; J0696; J1170; J1644; J1720; J1940; J2270; J2405; J3480; J3490; J7030; J7060; J7512; P9047; S0119

== ENCOUNTER 2018-12-03 09:49 | Inpatient (IN) | payer BC, MEDICARE ==
--- NOTE | 2018-12-03 10:21 | RADIOLOGY REPORT (SQ) ---
EXAM DESCRIPTION: CHEST SINGLE VIEW COMPLETED DATE/TIME: 12/03/2018 10:09 am REASON FOR STUDY: sepsis alert, cough COMPARISON: 11/18/2018 EXAM PARAMETERS: NUMBER OF VIEWS: One view. TECHNIQUE: Single frontal radiographic view of the chest acquired. RADIATION DOSE: NA LIMITATIONS: None. FINDINGS: LUNGS AND PLEURA: Significant increase in the left pleural effusion. Small right effusion . Atelectasis/ infiltrate at the left base. Right opacity. MEDIASTINUM AND HILAR STRUCTURES: No masses. Contour normal. HEART AND VASCULAR STRUCTURES: Heart normal in size. Normal vasculature. BONES: No acute findings. HARDWARE: None in the chest. OTHER: No other significant finding. IMPRESSION: In deterioration the chest. Increased left pleural effusion and atelectasis/ infiltrate at the left base. Right effusion and possible right pneumonia as well. TECHNICAL DOCUMENTATION: JOB ID: [id number] [employer]- All Rights Reserved Reading location - IP/workstation name: [email or web address]
[2018-12-03 10:28] LABS: VENOUS BLOOD BASE EXCESS 1.9 mmol/L; VENOUS BLOOD HCO3 25.9 mmol/L (20-32); VENOUS BLOOD PCO2 37.6 mmHg (35-63); VENOUS BLOOD PH 7.46 (7.30-7.42)
[2018-12-03 10:35] LABS: ABSOLUTE LYMPHOCYTES (AUTO) 0.9 10^3/uL (0.5-4.7); ABSOLUTE MONOCYTES (AUTO) 0.2 10^3/uL (0.1-1.4); HEMATOCRIT 28.7 % (36.0-47.0); HEMOGLOBIN 9.1 g/dL (12.0-15.5); LYMPHOCYTES % (AUTO) 12.7 % (13-45); MEAN CORPUSCULAR HEMOGLOBIN 30.7 pg (27.0-33.4); MEAN CORPUSCULAR HGB CONC 31.7 g/dL (32.0-36.0); MEAN CORPUSCULAR VOLUME 97 fl (80-97); MONOCYTES % (AUTO) 2.6 % (3-13); PLATELET COUNT 198 10^3/uL (150-450); RED BLOOD COUNT 2.96 10^6/uL (3.72-5.28); RED CELL DISTRIBUTION WIDTH 20.6 % (11.5-14.0); SEGMENTED NEUTROPHILS % (AUTO) 84.7 % (42-78); TOTAL CELLS COUNTED % (AUTO) 100 %; WHITE BLOOD COUNT 7.1 10^3/uL (4.0-10.5)
[2018-12-03 10:36] LABS: INTERNATIONAL RATION (INR) 1.22; PROTHROMBIN TIME 15.5 SEC (11.4-15.4)
[2018-12-03 10:45] LABS: ALKALINE PHOSPHATASE 308 U/L (38-126); ANION GAP 6 (5-19); ASPARTATE AMINO TRANSFERASE 17 U/L (14-36); BILIRUBIN,DIRECT 0.2 mg/dL (0.0-0.4); BILIRUBIN,TOTAL 0.5 mg/dL (0.2-1.3); BLOOD UREA NITROGEN 14 mg/dL (7-20); CALCIUM 8.1 mg/dL (8.4-10.2); CARBON DIOXIDE 28 mmol/L (22-30); CHLORIDE 104 mmol/L (98-107); GLUCOSE 132 mg/dL (75-110); POTASSIUM 4.3 mmol/L (3.6-5.0); TOTAL PROTEIN 4.4 g/dL (6.3-8.2)
[2018-12-03] MEDS: NORMAL SALINE 1000 ML 1,000 ML IV PRN ×2 (11:06→12:49)
[2018-12-03] MEDS ORDERED: CEFEPIME 2 GM/D5W RTU 2 GM/50 ML RTUPB IV ONE (11:16)
[2018-12-03] MEDS ORDERED: VANCOMYCIN HCL INJ 1000 MG VIAL IV ONE (11:18)
[2018-12-03] MEDS ORDERED: LEVOFLOXACIN 750 MG/D5W RTU 750 MG/150 ML RTUPB IV ONE (11:18)
[2018-12-03 11:26] LABS: APPEARANCE,URINE SLIGHTLY-CLOUDY; BILIRUBIN,URINE NEGATIVE (NEGATIVE); COLOR,URINE AMBER; GLUCOSE, URINE NEGATIVE (NEGATIVE); KETONES,URINE NEGATIVE (NEGATIVE); LEUKOCYTE ESTERASE,URINE NEGATIVE (NEGATIVE); NITRITE,URINE NEGATIVE (NEGATIVE); PROTEIN,URINE NEGATIVE (NEGATIVE); URINE SPECIFIC GRAVITY 1.013; UROBILINOGEN,URINE NEGATIVE mg/dL (<2.0)
--- NOTE | 2018-12-03 11:28 | ER Document Report ---
ED General - General Chief Complaint: Abdominal Pain Stated Complaint: ABDOMINAL PAIN Time Seen by Provider: 12/03/18 10:00 Primary Care Provider: ARTIS VENEGAS MD [Primary Care Provider] - Follow up as needed TRAVEL OUTSIDE OF THE [place] IN LAST 30 DAYS: No - HPI Notes: Patient is a 73-year-old female sent in from [facility]. Evidently she was just discharged from hospital yesterday. She has a history of inflammatory bowel disease, was admitted with increased abdominal pain and colitis flare. She complains now of increased abdominal pain, was found to be borderline hypotensive and tachycardic. Patient is coughing, states she has been doing this "for a few days." She denies any hematuria, dysuria, urinary frequency. Her diarrhea persists. - Related Data Allergies/Adverse Reactions: No Known Allergies Allergy (Verified 05/18/18 10:22) Home Medications: List reviewed, please see chart Past Medical History - General Information source: Patient, Outside Facility Records - Social History Smoking Status: Unknown if Ever Smoked Family History: Reviewed & Not Pertinent, Arthritis - Past Medical History Cardiac Medical History: Reports: Hx Hypercholesterolemia, Hx Hypertension Pulmonary Medical History: Reports: Hx COPD, Hx Pneumonia Neurological Medical History: Denies: Hx Seizures Renal/ Medical History: Denies: Hx Peritoneal Dialysis GI Medical History: Reports: Hx Gastroesophageal Reflux Disease, Hx Ulcerative Colitis Past Surgical History: Reports: Other - Cataract surgery. Denies: Hx Hysterectomy - Immunizations Hx Pneumococcal Vaccination: 02/08/10 Review of Systems - Review of Systems Constitutional: See HPI EENT: No symptoms reported Cardiovascular: No symptoms reported Respiratory: See HPI Gastrointestinal: See HPI Genitourinary: No symptoms reported Musculoskeletal: No symptoms reported Skin: No symptoms reported Neurological/Psychological: No symptoms reported Physical Exam - Vital signs Vitals: Resp Pulse Ox 17 89 L 12/03/18 09:52 12/03/18 09:52 - Notes Notes: Is a 73-year-old female appears her stated age, no acute distress. She is lying in the bed, seems slightly drowsy but GCS of 15. No increased respiratory effor t at this time. Vital signs reviewed, please refer to chart. Head is normocephalic, atraumatic. Pupils equal round, reactive to light. Neck is supple without meningismus. Heart is regular rate and rhythm. Lungs are clear to auscultation bilaterally. Abdomen is soft, nontender, normoactive bowel sounds throughout. Extremities without cyanosis, clubbing. Posterior calves are nontender. Peripheral pulses are equal. Skin is warm and dry. Sacral decubitus ulcer, stage I and small amount of stage II noted. Patient is awake, alert, neurological exam is nonfocal. Course - Re-evaluation Re-evalutation: 12/03/18 11:27 Patient presents emergency department for evaluation. She is normally not oxygen dependent. She was found to be hypoxic. She was placed on 6 L per nasal cannula, instructions given to keep patient upright. Her oxygenation improved to 96 to 98% on nasal cannula. She was given IV fluids. Heart rate improved into the 90s. Her blood pressure is currently 100/65. Given this patient's recent stay in the hospital, I am concerned about the possibility of a hospital- acquired infection. She had infiltrative findings and bilateral pleural effusions on chest x-ray, concerning for infection, particularly given her cough. She was treated with cefepime, vancomycin, Levaquin for hospital associated pneumonia. She does not have a significant leukocytosis. Her lactate is elevated, she was given fluids. Awaiting urinalysis, will contact primary for admission. 12/03/18 12:56 Urinalysis unremarkable. Patient is now oxygenating better on 4 L per nasal cannula. I spoke with Dr. Venegas. He will admit the patient for further care. - Vital Signs Vital signs: Temp Pulse Resp BP Pulse Ox 97.5 F 15 92/60 L 88 L 12/03/18 10:00 12/03/18 10:00 12/03/18 10:00 12/03/18 10:00 - Laboratory Result Diagrams: 12/03/18 10:03 12/03/18 10:03 Laboratory results interpreted by me: 12/03/18 12/03/18 12/03/18 10:03 10:03 10:03 RBC 2.96 L Hgb 9.1 L Hct 28.7 L MCHC 31.7 L RDW 20.6 H Lymph % (Auto) 12.7 L [place] % (Auto) 2.6 L Seg Neutrophils % 84.7 H PT 15.5 H VBG pH Glucose 132 H Lactic Acid Calcium 8.1 L Alkaline Phosphatase 308 H Total Protein 4.4 L Albumin 2.0 L Urine Blood 12/03/18 12/03/18 12/03/18 10:03 10:03 10:23 RBC Hgb Hct MCHC RDW Lymph % (Auto) [place] % (Auto) Seg Neutrophils % PT VBG pH 7.46 H Glucose Lactic Acid 2.3 H Calcium Alkaline Phosphatase Total Protein Albumin Urine Blood SMALL H - Diagnostic Test Radiology reviewed: Image reviewed, Reports reviewed Radiology results interpreted by me: 12/03/18 12:57 Chest X-Ray 12/03/18 09:56 IMPRESSION: In deterioration the chest. Increased left pleural effusion and atelectasis/ infiltrate at the left base. Right effusion and possible right pneumonia as well. Discharge - Discharge Clinical Impression: Pneumonia, Hypoxia, Pleural effusion Condition: Stable Disposition: ADMITTED INPATIENT Admitting Provider: [facility] Admitted: [facility] Referrals: ARTIS VENEGAS MD [Primary Care Provider] - Follow up as needed
--- NOTE | 2018-12-03 13:05 | EKG REPORT ---
SEVERITY:- ABNORMAL ECG - SINUS TACHYCARDIA PROBABLE LEFT ATRIAL ABNORMALITY NONSPECIFIC T ABNORMALITIES, DIFFUSE LEADS : Confirmed by: Ingrid Jackson MD 03-Dec-2018 13:04:43
[2018-12-03] MEDS ORDERED: VANCOMYCIN HCL 0 MG in DEXTROSE 5%-WATER 250 ML IV NR (16:30)
[2018-12-03] MEDS ORDERED: ALBUTEROL SULFATE HFA (90 MCG/PUFF) 200 PUFF/8.5 GM MDI IH PRN (16:45)
[2018-12-03] MEDS: RINGERS SOLUTION,LACTATED 1,000 ML IV PRN (16:53)
[2018-12-03 16:57] LABS: C DIFFICILE GDH NEGATIVE (NEGATIVE)
--- NOTE | 2018-12-03 16:57 | PDOC H&P ---
History of Present Illness Admission Date/PCP: 12/03/18 15:00 ARTIS VENEGAS MD History of Present Illness: NAN ALMEIDA is a 73 year old female, patient was just discharged yesterday from this hospital to halfway for rehabilitation and physical therapy, the last time she was admitted, it was for the a flare of the acute ulcerative colitis. She was transferred from the halfway to the emergency room for evaluation of abdominal pain., In the emergency room she was found to have a low blood pressure associated with pneumonia, she also complained of cough the cough was productive of sputum, chest x-ray was done, it demonstrated bilateral infiltrate with pleural effusion concerning for infection, this is consistent with nosocomial pneumonia Past Medical History Cardiac Medical History: Reports: Hyperlipidema, Hypertension Pulmonary Medical History: Reports: Chronic Obstructive Pulmonary Disease ( COPD), Pneumonia GI Medical History: Reports: Gastroesophageal Reflux Disease, Ulcerative Colitis Past Surgical History Past Surgical History: Reports: Other - Cataract surgery Social History Smoking Status: Former Smoker Electronic Cigarette use?: No Last Time Smoked: 02/09/2016 Frequency of Alcohol Use: Occasional Hx Recreational Drug Use: No Drugs: None Hx Prescription Drug Abuse: No Family History Family History: Reviewed & Not Pertinent, Arthritis Parental Family History Reviewed: Yes Children Family History Reviewed: Yes Sibling(s) Family History Reviewed.: Yes Medication/Allergy Home Medications: Albuterol Sulfate [Proair HFA Inhalation Aerosol 8.5 gm MDI] 2 puff IH Q6HP PRN 11/18/18 Aspirin [Ecotrin 81 mg EC Tablet] 81 mg PO DAILY 11/18/18 Pravastatin Sodium [Pravachol] 10 mg PO QHS 11/18/18 Prednisone [Deltasone 20 mg Tablet] 40 mg PO DAILY 11/18/18 Tiotropium [place] [Spiriva Handihaler 5 Cap/Kit (18 Mcg/Cap)] 1 cap IH DAILY 11/18/18 Megestrol Acetate [Megace Laura 400 mg/10 ml Udcup] 400 mg PO DAILY udc 11/30/18 Mesalamine [Asacol Sr 400 mg Capsule] 1,600 mg PO TID capsule. 11/30/18 Sertraline HCl [Zoloft 50 mg Tablet] 100 mg PO DAILY tablet 11/30/18 Nystatin [Mycostatin 966985 Unit/1 ml Susp 60 ml Btl] 4 ml PO QID 12/03/18 Allergies/Adverse Reactions: No Known Allergies Allergy (Verified 05/18/18 10:22) Review of Systems Constitutional: ABSENT: chills, fever(s), headache(s), weight gain, weight loss Eyes: ABSENT: visual disturbances Ears: ABSENT: hearing changes Cardiovascular: ABSENT: chest pain, dyspnea on exertion, edema, orthropnea, palpitations Respiratory: PRESENT: cough, sputum. ABSENT: hemoptysis Gastrointestinal: ABSENT: abdominal pain, constipation, diarrhea, hematemesis, hematochezia, nausea, vomiting Genitourinary: ABSENT: dysuria, hematuria Musculoskeletal: ABSENT: joint swelling Integumentary: ABSENT: rash, wounds Neurological: ABSENT: abnormal gait, abnormal speech, confusion, dizziness, focal weakness, syncope Psychiatric: ABSENT: anxiety, depression, homidical ideation, suicidal ideation Endocrine: ABSENT: cold intolerance, heat intolerance, menstrual abnormalities, polydipsia, polyuria Hematologic/Lymphatic: ABSENT: easy bleeding, easy bruising, lymphadenopathy Physical Exam Vital Signs: Temp Pulse Resp BP Pulse Ox 97.7 F 14 116/68 97 12/03/18 15:30 12/03/18 15:00 12/03/18 15:00 12/03/18 15:00 Intake & Output 12/02/18 12/03/18 12/04/18 06:59 06:59 06:59 Intake Total 2200 Output Total 100 Balance 2100 Weight 78.2 kg General appearance: PRESENT: no acute distress, well-developed, well-nourished Head exam: PRESENT: atraumatic, normocephalic Eye exam: PRESENT: PERRLA Ear exam: PRESENT: normal external ear exam Neck exam: PRESENT: full ROM Respiratory exam: PRESENT: clear to auscultation mayra Cardiovascular exam: PRESENT: RRR, +S1, +S2 GI/Abdominal exam: PRESENT: normal bowel sounds, soft Rectal exam: PRESENT: deferred Neurological exam: PRESENT: alert, CN II-XII grossly intact Psychiatric exam: PRESENT: appropriate affect, normal mood Skin exam: PRESENT: dry, intact, warm Results Laboratory Results: 12/03/18 10:03 12/03/18 10:03 12/03/18 12/03/18 12/03/18 10:03 10:03 10:03 WBC 7.1 RBC 2.96 L Hgb 9.1 L Hct 28.7 L MCV 97 MCH 30.7 MCHC 31.7 L RDW 20.6 H Plt Count 198 Seg Neutrophils % 84.7 H VBG pH VBG pCO2 VBG HCO3 VBG Base Excess Sodium 137.7 Potassium 4.3 Chloride 104 Carbon Dioxide 28 Anion Gap 6 BUN 14 Creatinine 0.56 Est GFR ( Amer) > 60 Glucose 132 H Lactic Acid 2.3 H Calcium 8.1 L Total Bilirubin 0.5 AST 17 Alkaline Phosphatase 308 H Total Protein 4.4 L Albumin 2.0 L Urine Color Urine Appearance Urine pH Ur Specific [place] Urine Protein Urine Glucose (UA) Urine Ketones Urine Blood Urine Nitrite Ur Leukocyte Esterase Urine WBC (Auto) Urine RBC (Auto) 12/03/18 12/03/18 10:03 10:23 WBC RBC Hgb Hct MCV MCH MCHC RDW Plt Count Seg Neutrophils % VBG pH 7.46 H VBG pCO2 37.6 VBG HCO3 25.9 VBG Base Excess 1.9 Sodium Potassium Chloride Carbon Dioxide Anion Gap BUN Creatinine Est GFR ( Amer) Glucose Lactic Acid Calcium Total Bilirubin AST Alkaline Phosphatase Total Protein Albumin Urine Color JAYA Urine Appearance SLIGHTLY-CLOUDY Urine pH 6.0 Ur Specific [place] 1.013 Urine Protein NEGATIVE Urine Glucose (UA) NEGATIVE Urine Ketones NEGATIVE Urine Blood SMALL H Urine Nitrite NEGATIVE Ur Leukocyte Esterase NEGATIVE Urine WBC (Auto) 2 Urine RBC (Auto) 1 12/03/18 10:03 Troponin I < 0.012 Impressions: Chest X-Ray 12/03/18 09:56 IMPRESSION: In deterioration the chest. Increased left pleural effusion and atelectasis/ infiltrate at the left base. Right effusion and possible right pneumonia as well. Assessment & Plan - Diagnosis (1) Nosocomial pneumonia Is this a current diagnosis for this admission?: Yes Plan: She has nosocomial pneumonia, she will be treated with antibiotic to cover MRSA, gram-negative organisms, start vancomycin, cefepime (2) Ulcerative pancolitis Is this a current diagnosis for this admission?: Yes Plan: Patient on prednisone, transition to IV hydrocortisone, stress dose, 50 mg IV every 8 (3) Depression Qualifiers: Depression Type: major depressive disorder Major depression recurrence: recurrent Active/Remission status: currently active Major depression episode severity: severe Psychotic features: without psychotic features Qualified Code(s): F33.2 - Major depressive disorder, recurrent severe without psychotic features Is this a current diagnosis for this admission?: Yes Plan: Continue sertraline
[2018-12-03] MEDS ORDERED: (PENDING PHARMACY ID) (Tiotropium Bromide [Spiriva Handihaler 5 Cap/Kit (18 Mcg/Cap)] 1 CA IH SCH (17:00)
[2018-12-03] MEDS ORDERED: SERTRALINE HCL 50 MG TABLET PO ONE (17:15)
[2018-12-03] MEDS ORDERED: MEGESTROL ACETATE SUSP 400 MG/10 ML UDCUP PO ONE (17:15)
[2018-12-03] MEDS ORDERED: UMECLIDINIUM BROMIDE 62.5 MCG/DOSE IH ONE ×2 (17:15→18:11)
[2018-12-03] MEDS: NYSTATIN 500000 UNIT/5 ML UDCUP PO SCH ×2 (17:47→22:22)
[2018-12-03] MEDS: MESALAMINE 400 MG CAPSULE.DR PO SCH (17:47)
[2018-12-03] MEDS: HEPARIN SOD (PORCINE) 5,000 UNIT/ML 1 ML VIAL SUBCUT SCH ×2 (17:47→22:21)
[2018-12-03] MEDS: HYDROCORTISONE SOD SUCCINATE INJ/PF 100 MG/2 ML SDV IV SCH ×2 (17:48→22:21)
[2018-12-03] MEDS ORDERED: CEFEPIME 2 GM/D5W RTU 4 GM/100 ML RTUPB IV ONE (18:00)
[2018-12-03] MEDS ORDERED: ASPIRIN 81 MG TABLET, ENT COATED PO ONE (18:00)
[2018-12-03] MEDS: CEFEPIME 2 GM/D5W RTU 2 GM/50 ML RTUPB IV SCH ×2 (18:10→22:22)
[2018-12-03] MEDS ORDERED: MEGESTROL ACETATE SUSP 400 MG/10 ML UDCUP ONE (18:12)
[2018-12-03] MEDS: ATORVASTATIN CALCIUM 10 MG TABLET PO SCH (22:22)
[2018-12-04] MEDS: VANCOMYCIN HCL 1,000 MG in DEXTROSE 5%-WATER 250 ML IV SCH ×2 (00:02→14:27)
[2018-12-04] MEDS: HEPARIN SOD (PORCINE) 5,000 UNIT/ML 1 ML VIAL SUBCUT SCH ×3 (05:08→22:22)
[2018-12-04] MEDS: RINGERS SOLUTION,LACTATED 1,000 ML IV PRN (05:08)
[2018-12-04] MEDS: HYDROCORTISONE SOD SUCCINATE INJ/PF 100 MG/2 ML SDV IV SCH ×3 (05:08→22:28)
[2018-12-04 06:57] LABS: HEMATOCRIT 22.3 % (36.0-47.0); MEAN CORPUSCULAR HEMOGLOBIN 30.7 pg (27.0-33.4); MEAN CORPUSCULAR HGB CONC 32.5 g/dL (32.0-36.0); MEAN CORPUSCULAR VOLUME 95 fl (80-97); PLATELET COUNT 149 10^3/uL (150-450); RED BLOOD COUNT 2.36 10^6/uL (3.72-5.28); RED CELL DISTRIBUTION WIDTH 19.7 % (11.5-14.0); WHITE BLOOD COUNT 4.8 10^3/uL (4.0-10.5)
[2018-12-04 06:59] LABS: HEMOGLOBIN 7.2 g/dL (12.0-15.5)
[2018-12-04 07:21] LABS: ABSOLUTE LYMPHOCYTES# (MANUAL) 0.2 10^3/uL (0.5-4.7); ABSOLUTE MONOCYTES # (MANUAL) 0.1 10^3/uL (0.1-1.4); BASOPHILS % (MANUAL) 0 % (0-2); EOSINOPHILS % (MANUAL) 0 % (0-6); LYMPHOCYTES % (MANUAL) 4 % (13-45); METAMYELOCYTES % (MANUAL) 2 % (0-1); MONOCYTES % (MANUAL) 2 % (3-13); SEGMENTED NEUTROPHILS % (MAN) 86 % (42-78); TOTAL CELLS COUNTED 100
[2018-12-04 07:30] LABS: ANISOCYTOSIS 3+; HYPOCHROMASIA 1+
[2018-12-04 07:34] LABS: PLATELET COMMENT DECREASED
[2018-12-04] MEDS: CEFEPIME 2 GM/D5W RTU 2 GM/50 ML RTUPB IV SCH ×2 (09:52→22:33)
[2018-12-04] MEDS: UMECLIDINIUM BROMIDE 62.5 MCG/DOSE IH SCH (09:53)
[2018-12-04] MEDS: NYSTATIN 500000 UNIT/5 ML UDCUP PO SCH ×4 (09:54→22:34)
[2018-12-04] MEDS: SERTRALINE HCL 50 MG TABLET PO SCH (09:54)
[2018-12-04] MEDS: MESALAMINE 400 MG CAPSULE.DR PO SCH ×3 (09:54→17:35)
[2018-12-04] MEDS: MEGESTROL ACETATE SUSP 400 MG/10 ML UDCUP PO SCH (10:01)
[2018-12-04 10:36] LABS: ABSOLUTE LYMPHOCYTES (AUTO) 0.5 10^3/uL (0.5-4.7); ABSOLUTE MONOCYTES (AUTO) 0.2 10^3/uL (0.1-1.4); ABSOLUTE NEUT (AUTO) 4.2 10^3/uL (1.7-8.2); HEMATOCRIT 23.8 % (36.0-47.0); LYMPHOCYTES % (AUTO) 10.9 % (13-45); MEAN CORPUSCULAR HEMOGLOBIN 30.4 pg (27.0-33.4); MEAN CORPUSCULAR HGB CONC 32.2 g/dL (32.0-36.0); MEAN CORPUSCULAR VOLUME 94 fl (80-97); MONOCYTES % (AUTO) 3.6 % (3-13); PLATELET COUNT 149 10^3/uL (150-450); RED BLOOD COUNT 2.53 10^6/uL (3.72-5.28); RED CELL DISTRIBUTION WIDTH 20.3 % (11.5-14.0); SEGMENTED NEUTROPHILS % (AUTO) 85.5 % (42-78); TOTAL CELLS COUNTED % (AUTO) 100 %
[2018-12-04 10:39] LABS: HEMOGLOBIN 7.7 g/dL (12.0-15.5)
[2018-12-04 10:52] LABS: ALBUMIN 1.7 g/dL (3.5-5.0); ALKALINE PHOSPHATASE 209 U/L (38-126); ANION GAP 7 (5-19); ASPARTATE AMINO TRANSFERASE 14 U/L (14-36); BILIRUBIN,DIRECT 0.3 mg/dL (0.0-0.4); BILIRUBIN,TOTAL 0.4 mg/dL (0.2-1.3); BLOOD UREA NITROGEN 12 mg/dL (7-20); CALCIUM 7.1 mg/dL (8.4-10.2); CARBON DIOXIDE 26 mmol/L (22-30); CHLORIDE 104 mmol/L (98-107); GLUCOSE 112 mg/dL (75-110); TOTAL PROTEIN 3.9 g/dL (6.3-8.2)
[2018-12-04 10:58] LABS: POTASSIUM 2.6 mmol/L (3.6-5.0)
[2018-12-04] MEDS: ASPIRIN 81 MG TABLET, ENT COATED PO SCH (11:56)
--- NOTE | 2018-12-04 12:14 | PDOC PROGRESS REPORT ---
Subjective Progress Note for:: 12/04/18 Subjective:: Patient was admitted yesterday for the management of pneumonia. She is very weak, not able to stand Reason For Visit: NOSOCOMIAL PNEUMONIA Physical Exam Vital Signs: Temp Pulse Resp BP Pulse Ox 97.5 F 87 18 112/66 93 12/04/18 07:19 12/04/18 07:19 12/04/18 07:19 12/04/18 07:19 12/04/18 07:19 Intake & Output 12/03/18 12/04/18 12/05/18 06:59 06:59 06:59 Intake Total 3910 Output Total 100 Balance 3810 Weight 77.2 kg General appearance: PRESENT: no acute distress Eye exam: PRESENT: PERRLA Respiratory exam: PRESENT: rhonchi Cardiovascular exam: PRESENT: +S1, +S2 GI/Abdominal exam: PRESENT: soft Neurological exam: PRESENT: alert Results Laboratory Results: 12/04/18 10:11 12/04/18 10:11 12/04/18 12/04/18 12/04/18 04:27 04:27 06:26 WBC Cancelled 4.8 RBC Cancelled 2.36 L Hgb Cancelled 7.2 L Hct Cancelled 22.3 L MCV Cancelled 95 MCH Cancelled 30.7 MCHC Cancelled 32.5 RDW Cancelled 19.7 H Plt Count Cancelled 149 L Seg Neutrophils % Cancelled Not Reportable Sodium Cancelled Potassium Cancelled Chloride Cancelled Carbon Dioxide Cancelled Anion Gap Cancelled BUN Cancelled Creatinine Cancelled Est GFR ( Amer) Cancelled Est GFR (Non-Af Amer) Cancelled Glucose Cancelled Calcium Cancelled Total Bilirubin Cancelled AST Cancelled Alkaline Phosphatase Cancelled Total Protein Cancelled Albumin Cancelled 12/04/18 12/04/18 10:11 10:11 WBC 5.0 RBC 2.53 L Hgb 7.7 L Hct 23.8 L MCV 94 MCH 30.4 MCHC 32.2 RDW 20.3 H Plt Count 149 L Seg Neutrophils % 85.5 H Sodium 137.3 Potassium 2.6 L* Chloride 104 Carbon Dioxide 26 Anion Gap 7 BUN 12 Creatinine 0.51 L Est GFR ( Amer) > 60 Est GFR (Non-Af Amer) Glucose 112 H Calcium 7.1 L Total Bilirubin 0.4 AST 14 Alkaline Phosphatase 209 H Total Protein 3.9 L Albumin 1.7 L 12/03/18 10:03 Troponin I < 0.012 Impressions: Chest X-Ray 12/03/18 09:56 IMPRESSION: In deterioration the chest. Increased left pleural effusion and atelectasis/ infiltrate at the left base. Right effusion and possible right pneumonia as well. Assessment & Plan - Diagnosis (1) Nosocomial pneumonia Is this a current diagnosis for this admission?: Yes Plan: Continue IV antibiotic, induce sputum for culture and sensitivity (2) Ulcerative pancolitis Is this a current diagnosis for this admission?: Yes Plan: Continue IV hydrocortisone, start patient on medication to prevent osteoporosis (3) Depression Qualifiers: Depression Type: major depressive disorder Major depression recurrence: recurrent Active/Remission status: currently active Major depression episode severity: severe Psychotic features: without psychotic features Qualified C ode(s): F33.2 - Major depressive disorder, recurrent severe without psychotic features Is this a current diagnosis for this admission?: Yes (4) Anemia Qualifiers: Anemia type: unspecified type Qualified Code(s): D64.9 - Anemia, unspecified Is this a current diagnosis for this admission?: Yes Plan: This is most likely dilutional, there is no obvious blood loss, and we will hold on blood transfusion at this time, sent for basic anemia work-up (5) senior living (current) use of systemic steroids Is this a current diagnosis for this admission?: Yes Plan: Start medication to prevent osteoporosis, Fosamax, calcium, vitamin D (6) Hypokalemia Is this a current diagnosis for this admission?: Yes Plan: replace K - Time Time Spent with patient: 35 or more minutes Level of Care: IMCU Anticipated discharge: SNF
[2018-12-04] MEDS: POTASSIUM CHLORIDE 20 MEQ/50 ML RTU IV SCH ×4 (12:30→22:25)
[2018-12-04] MEDS: CALCIUM CARBONATE 250 MG/VITAMIN D3 125 UNIT TABLET PO SCH (12:31)
[2018-12-04 12:38] LABS: ABSOLUTE RETICS # 0.066 10^6/uL (0.028-0.122); RETICULOCYTE COUNT (AUTO) 2.59 % (0.66-2.85)
[2018-12-04] MEDS ORDERED: BETHANECHOL CHLORIDE 25 MG TABLET ONE (17:31)
[2018-12-04] MEDS: BETHANECHOL CHLORIDE 25 MG TABLET PO SCH (17:35)
[2018-12-04] MEDS: ATORVASTATIN CALCIUM 10 MG TABLET PO SCH (22:32)
[2018-12-05] MEDS: VANCOMYCIN HCL 1,000 MG in DEXTROSE 5%-WATER 250 ML IV SCH ×2 (00:49→11:24)
[2018-12-05] MEDS: HEPARIN SOD (PORCINE) 5,000 UNIT/ML 1 ML VIAL SUBCUT SCH ×3 (05:33→21:06)
[2018-12-05] MEDS: HYDROCORTISONE SOD SUCCINATE INJ/PF 100 MG/2 ML SDV IV SCH ×2 (05:38→13:13)
[2018-12-05 06:09] LABS: ABSOLUTE LYMPHOCYTES (AUTO) 0.6 10^3/uL (0.5-4.7); ABSOLUTE MONOCYTES (AUTO) 0.2 10^3/uL (0.1-1.4); ABSOLUTE NEUT (AUTO) 4.6 10^3/uL (1.7-8.2); BASOPHILS % (AUTO) 0.1 % (0-2); HEMATOCRIT 26.1 % (36.0-47.0); HEMOGLOBIN 8.5 g/dL (12.0-15.5); LYMPHOCYTES % (AUTO) 10.5 % (13-45); MEAN CORPUSCULAR HEMOGLOBIN 29.9 pg (27.0-33.4); MEAN CORPUSCULAR HGB CONC 32.5 g/dL (32.0-36.0); MEAN CORPUSCULAR VOLUME 92 fl (80-97); MONOCYTES % (AUTO) 3.5 % (3-13); PLATELET COUNT 161 10^3/uL (150-450); RED BLOOD COUNT 2.84 10^6/uL (3.72-5.28); RED CELL DISTRIBUTION WIDTH 19.2 % (11.5-14.0); SEGMENTED NEUTROPHILS % (AUTO) 85.9 % (42-78); TOTAL CELLS COUNTED % (AUTO) 100 %; WHITE BLOOD COUNT 5.4 10^3/uL (4.0-10.5)
[2018-12-05 06:19] LABS: ALBUMIN 1.9 g/dL (3.5-5.0); ALKALINE PHOSPHATASE 370 U/L (38-126); ANION GAP 7 (5-19); ASPARTATE AMINO TRANSFERASE 28 U/L (14-36); BILIRUBIN,DIRECT 0.3 mg/dL (0.0-0.4); BILIRUBIN,TOTAL 0.6 mg/dL (0.2-1.3); BLOOD UREA NITROGEN 10 mg/dL (7-20); CALCIUM 7.1 mg/dL (8.4-10.2); CARBON DIOXIDE 29 mmol/L (22-30); CHLORIDE 100 mmol/L (98-107); GLUCOSE 118 mg/dL (75-110); TOTAL PROTEIN 4.3 g/dL (6.3-8.2)
[2018-12-05 06:22] LABS: POTASSIUM 1.9 mmol/L (3.6-5.0)
[2018-12-05] MEDS: POTASSI CL 20 MEQ/50 ML RIDER 20 MEQ/50 ML RTUPB IV SCH ×4 (08:36→15:22)
[2018-12-05] MEDS: POTASSI CL 40 MEQ/D5-1/2NS 1L 40 MEQ/1,000 ML RTUINJ IV PRN ×2 (08:37→18:29)
[2018-12-05 09:42] LABS: BAND NEUTROPHILS % (MANUAL) 6 % (3-5)
[2018-12-05] MEDS: UMECLIDINIUM BROMIDE 62.5 MCG/DOSE IH SCH (10:17)
[2018-12-05] MEDS: ASPIRIN 81 MG TABLET, ENT COATED PO SCH (10:18)
[2018-12-05] MEDS: MESALAMINE 400 MG CAPSULE.DR PO SCH ×3 (10:18→17:45)
[2018-12-05] MEDS: BETHANECHOL CHLORIDE 25 MG TABLET PO SCH ×2 (10:18→17:46)
[2018-12-05] MEDS: NYSTATIN 500000 UNIT/5 ML UDCUP PO SCH ×4 (10:18→22:03)
[2018-12-05] MEDS: CALCIUM CARBONATE 250 MG/VITAMIN D3 125 UNIT TABLET PO SCH (10:18)
[2018-12-05] MEDS: MEGESTROL ACETATE SUSP 400 MG/10 ML UDCUP PO SCH (10:19)
[2018-12-05] MEDS: CEFEPIME 2 GM/D5W RTU 2 GM/50 ML RTUPB IV SCH ×2 (10:19→22:30)
[2018-12-05] MEDS: SERTRALINE HCL 50 MG TABLET PO SCH (10:19)
[2018-12-05 13:39] LABS: ALBUMIN 1.8 g/dL (3.5-5.0); ALKALINE PHOSPHATASE 341 U/L (38-126); ANION GAP 7 (5-19); ASPARTATE AMINO TRANSFERASE 17 U/L (14-36); BILIRUBIN,DIRECT 0.2 mg/dL (0.0-0.4); BILIRUBIN,TOTAL 0.5 mg/dL (0.2-1.3); BLOOD UREA NITROGEN 9 mg/dL (7-20); CARBON DIOXIDE 27 mmol/L (22-30); CHLORIDE 99 mmol/L (98-107); GLUCOSE 235 mg/dL (75-110)
[2018-12-05 13:53] LABS: CALCIUM 6.6 mg/dL (8.4-10.2); POTASSIUM 2.4 mmol/L (3.6-5.0)
[2018-12-05 18:02] LABS: HEMATOCRIT 23.8 % (36.0-47.0); MEAN CORPUSCULAR HEMOGLOBIN 30.1 pg (27.0-33.4); MEAN CORPUSCULAR HGB CONC 32.4 g/dL (32.0-36.0); MEAN CORPUSCULAR VOLUME 93 fl (80-97); PLATELET COUNT 136 10^3/uL (150-450); RED BLOOD COUNT 2.56 10^6/uL (3.72-5.28); RED CELL DISTRIBUTION WIDTH 19.6 % (11.5-14.0); WHITE BLOOD COUNT 7.7 10^3/uL (4.0-10.5)
[2018-12-05 18:04] LABS: HEMOGLOBIN 7.7 g/dL (12.0-15.5)
[2018-12-05 18:31] LABS: ABSOLUTE LYMPHOCYTES# (MANUAL) 0.9 10^3/uL (0.5-4.7); ABSOLUTE MONOCYTES # (MANUAL) 0.3 10^3/uL (0.1-1.4); BAND NEUTROPHILS % (MANUAL) 7 % (3-5); BASOPHILS % (MANUAL) 0 % (0-2); EOSINOPHILS % (MANUAL) 0 % (0-6); LYMPHOCYTES % (MANUAL) 12 % (13-45); MONOCYTES % (MANUAL) 4 % (3-13); NUCLEATED RED BLOOD CELLS 1 /100 WBC (0); SEGMENTED NEUTROPHILS % (MAN) 77 % (42-78); TOTAL CELLS COUNTED 100
[2018-12-05 18:32] LABS: ANISOCYTOSIS 2+; HYPOCHROMASIA 1+; PLATELET COMMENT ADEQUATE
--- NOTE | 2018-12-05 19:38 | PDOC PROGRESS REPORT ---
Subjective Progress Note for:: 12/05/18 Subjective:: Patient seen by the bedside, she has passage of a large bloody stool,, There is severe hypokalemia,, She is also having difficulty urinating with recurrent retention of urine. Reason For Visit: NOSOCOMIAL PNEUMONIA Physical Exam Vital Signs: Temp Pulse Resp BP Pulse Ox 97.4 F 94 17 123/64 93 12/05/18 15:02 12/05/18 15:02 12/05/18 15:02 12/05/18 15:02 12/05/18 15:02 Intake & Output 12/04/18 12/05/18 12/06/18 06:59 06:59 06:59 Intake Total 3910 2350 2204 Output Total 100 1300 Balance 3810 1050 2204 Weight 77.2 kg 77 kg 77 kg General appearance: PRESENT: no acute distress Eye exam: PRESENT: PERRLA Respiratory exam: PRESENT: clear to auscultation mayra Cardiovascular exam: PRESENT: +S1, +S2 GI/Abdominal exam: PRESENT: soft Neurological exam: PRESENT: alert, CN II-XII grossly intact Results Laboratory Results: 12/05/18 17:50 12/05/18 12:52 12/05/18 12/05/18 12/05/18 05:26 05:26 05:26 WBC 5.4 RBC 2.84 L Hgb 8.5 L Hct 26.1 L MCV 92 MCH 29.9 MCHC 32.5 RDW 19.2 H Plt Count 161 Seg Neutrophils % 85.9 H Sodium 135.9 L Potassium 1.9 L* Chloride 100 Carbon Dioxide 29 Anion Gap 7 BUN 10 Creatinine 0.42 L Est GFR ( Amer) > 60 Glucose 118 H Calcium 7.1 L Total Bilirubin 0.6 AST 28 Alkaline Phosphatase 370 H Total Protein 4.3 L Albumin 1.9 L Blood Type O POSITIVE Antibody Screen NEGATIVE 12/05/18 12/05/18 12:52 17:50 WBC 7.7 RBC 2.56 L Hgb 7.7 L Hct 23.8 L MCV 93 MCH 30.1 MCHC 32.4 RDW 19.6 H Plt Count 136 L Seg Neutrophils % Not Reportable Sodium 132.8 L Potassium 2.4 L* Chloride 99 Carbon Dioxide 27 Anion Gap 7 BUN 9 Creatinine 0.43 L Est GFR ( Amer) > 60 Glucose 235 H Calcium 6.6 L* Total Bilirubin 0.5 AST 17 Alkaline Phosphatase 341 H Total Protein 4.0 L Albumin 1.8 L Blood Type Antibody Screen 12/03/18 10:03 Troponin I < 0.012 Impressions: Chest X-Ray 12/03/18 09:56 IMPRESSION: In deterioration the chest. Increased left pleural effusion and atelectasis/ infiltrate at the left base. Right effusion and possible right pneumonia as well. Assessment & Plan - Diagnosis (1) Nosocomial pneumonia Is this a current diagnosis for this admission?: Yes Plan: Continue IV antibiotic (2) Ulcerative pancolitis Is this a current diagnosis for this admission?: Yes Plan: Consult GI (3) Depression Qualifiers: Depression Type: major depressive disorder Major depression recurrence: recurrent Active/Remission status: currently active Major depression episode severity: severe Psychotic features: without psychotic features Qualified Code(s): F33.2 - Major depressive disorder, recurrent severe without psychotic features Is this a current diagnosis for this admission?: Yes (4) Anemia Qualifiers: Anemia type: unspecified type Qualified Code(s): D64.9 - Anemia, unspecified Is this a current diagnosis for this admission?: Yes (5) prison (current) use of systemic steroids Is this a current diagnosis for this admission?: Yes (6) Hypokalemia Is this a current diagnosis for this admission?: Yes Plan: She has severe hypokalemia this is most likely from GI losses, urine potassium is 19 less than 20 suggesting that the hypokalemia is from the diarrhea, replace potassium (7) Anemia due to blood loss Is this a current diagnosis for this admission?: Yes Plan: She will transfuse with 2 units of red blood cells (8) Retention of urine Is this a current diagnosis for this admission?: Yes Plan: This is probably from multiple factors including inactivity, prolonged use of indwelling Ness catheter, patient is advised to make efforts to urinate, she is also started on Urecholine a muscarinic receptor agonist - Time Time Spent with patient: 35 or more minutes Level of Care: IMCU Medications reviewed and adjusted accordingly: Yes
[2018-12-05] MEDS: ALBUMIN HUMAN 12.5 GM/50 ML RTUINJ IV SCH (22:02)
[2018-12-05] MEDS: METHYLPREDNISOLONE INJ 40 MG/1 ML SDV IV SCH (22:02)
[2018-12-05] MEDS: ATORVASTATIN CALCIUM 10 MG TABLET PO SCH (22:02)
[2018-12-06] MEDS: VANCOMYCIN HCL 1,000 MG in DEXTROSE 5%-WATER 250 ML IV SCH (04:21)
[2018-12-06 06:44] LABS: ABSOLUTE LYMPHOCYTES (AUTO) 0.6 10^3/uL (0.5-4.7); ABSOLUTE MONOCYTES (AUTO) 0.2 10^3/uL (0.1-1.4); ABSOLUTE NEUT (AUTO) 5.2 10^3/uL (1.7-8.2); BASOPHILS % (AUTO) 0.1 % (0-2); HEMATOCRIT 37.6 % (36.0-47.0); LYMPHOCYTES % (AUTO) 10.5 % (13-45); MEAN CORPUSCULAR HEMOGLOBIN 31.6 pg (27.0-33.4); MEAN CORPUSCULAR HGB CONC 34.4 g/dL (32.0-36.0); MEAN CORPUSCULAR VOLUME 92 fl (80-97); MONOCYTES % (AUTO) 2.7 % (3-13); PLATELET COUNT 103 10^3/uL (150-450); RED BLOOD COUNT 4.09 10^6/uL (3.72-5.28); RED CELL DISTRIBUTION WIDTH 16.5 % (11.5-14.0); SEGMENTED NEUTROPHILS % (AUTO) 86.7 % (42-78); TOTAL CELLS COUNTED % (AUTO) 100 %
[2018-12-06 06:49] LABS: HEMOGLOBIN 12.9 g/dL (12.0-15.5)
[2018-12-06] MEDS: HEPARIN SOD (PORCINE) 5,000 UNIT/ML 1 ML VIAL SUBCUT SCH ×3 (06:53→22:42)
[2018-12-06] MEDS: ALBUMIN HUMAN 12.5 GM/50 ML RTUINJ IV SCH ×3 (06:55→22:55)
[2018-12-06 07:08] LABS: ALKALINE PHOSPHATASE 440 U/L (38-126); ANION GAP 8 (5-19); ASPARTATE AMINO TRANSFERASE 22 U/L (14-36); BILIRUBIN,DIRECT 0.7 mg/dL (0.0-0.4); BILIRUBIN,TOTAL 1.3 mg/dL (0.2-1.3); BLOOD UREA NITROGEN 8 mg/dL (7-20); CARBON DIOXIDE 28 mmol/L (22-30); CHLORIDE 101 mmol/L (98-107); GLUCOSE 169 mg/dL (75-110); TOTAL PROTEIN 4.3 g/dL (6.3-8.2)
[2018-12-06 07:25] LABS: CALCIUM 6.8 mg/dL (8.4-10.2); POTASSIUM 2.2 mmol/L (3.6-5.0)
--- NOTE | 2018-12-06 08:44 | RADIOLOGY REPORT (SQ) ---
EXAM DESCRIPTION: ABDOMEN 2 VIEWS COMPLETED DATE/TIME: 12/06/2018 12:00 am REASON FOR STUDY: Colitis COMPARISON: CT of the abdomen pelvis with contrast from 11/17/2018. NUMBER OF VIEWS: Two views. TECHNIQUE: Supine and erect/decubitus radiographic images of the abdomen acquired. LIMITATIONS: None. FINDINGS: FREE AIR: No pneumatosis, portal venous gas or free intraperitoneal air. LUNG BASES: Dense opacity in the left base that obscures the contour of the left hemidiaphragm and bl unts the left costophrenic sulcus. BOWEL GAS PATTERN: Distended ahaustral transverse colon that measures up to 5 cm in diameter. There are no dilated loops of small bowel or differential air-fluid levels. CALCIFICATIONS: Punctate calcification projecting within the left renal fossa. SOFT TISSUES: No soft tissue abnormality. HARDWARE: Ness catheter in place. BONES: Degenerative spondylosis of the lumbar spine. OTHER: No other findings. IMPRESSION: 1. Dense opacity in the left base that could represent a combination of pleural fluid, a telectasis, and/or consolidation. 2. Nonobstructive bowel gas pattern. 3. Ahaustral appearance of the transverse colon as on the correlative CT from 11/17/2018. Correlate with clinical findings to exclude an infectious or inflammatory colitis. TECHNICAL DOCUMENTATION: JOB ID: [id number] [employer]- All Rights Reserved Reading location - IP/workstation name: [email or web address]
[2018-12-06] MEDS: CALCIUM CARBONATE 250 MG/VITAMIN D3 125 UNIT TABLET PO SCH (09:28)
[2018-12-06] MEDS: SERTRALINE HCL 50 MG TABLET PO SCH (09:29)
[2018-12-06] MEDS: ASPIRIN 81 MG TABLET, ENT COATED PO SCH (09:29)
[2018-12-06] MEDS: METHYLPREDNISOLONE INJ 40 MG/1 ML SDV IV SCH ×2 (09:29→23:00)
[2018-12-06] MEDS: NYSTATIN 500000 UNIT/5 ML UDCUP PO SCH ×4 (09:32→23:00)
[2018-12-06] MEDS: BETHANECHOL CHLORIDE 25 MG TABLET PO SCH ×2 (09:34→17:33)
[2018-12-06] MEDS: MEGESTROL ACETATE SUSP 400 MG/10 ML UDCUP PO SCH (09:35)
[2018-12-06] MEDS: UMECLIDINIUM BROMIDE 62.5 MCG/DOSE IH SCH (09:35)
[2018-12-06] MEDS: MESALAMINE 400 MG CAPSULE.DR PO SCH ×3 (09:41→17:33)
[2018-12-06] MEDS: CEFEPIME 2 GM/D5W RTU 2 GM/50 ML RTUPB IV SCH ×2 (09:41→22:33)
[2018-12-06 10:29] LABS: VANCOMYCIN,TROUGH 36.1 ug/mL (5.0-20.0)
[2018-12-06] MEDS: POTASSI CL 40 MEQ/D5-1/2NS 1L 40 MEQ/1,000 ML RTUINJ IV PRN (15:40)
--- NOTE | 2018-12-06 17:25 | PDOC CONSULTATION ---
Consultation Consult Date: 12/05/18 Provider Consulted: GARLAND ELENA History of Present Illness Admission Date/PCP: 12/03/18 15:00 ARTIS VENEGAS MD History of Present Illness: NAN ALMEIDA is a 73 year old femalePatient who was readmitted to the hospital on 12/03/2018 having been discharged the day before. She was brought back to the emergency room for abdominal pain and her evaluation did show pneumonia. Consultation was requested for 2 episodes of rectal bleeding while in the hospital. I saw her during her recent admission with ulcerative pancolitis and electrolyte abnormalities. Her colitis actually was improving slowly during the last admission based on her CAT scan and her symptoms. She has severe deconditioning and has not been eating well. She was also started on antidepressants. On admission this time her x-rays suggest bilateral pneumonia and her abdominal x-ray showed distended transverse colon up to 5 cm with loss of haustra. She denies abdominal pain but does complain of some diarrhea. She did have some stool in her diaper that was brown with no bright red blood. Her white count was normal but she has a left shift. She is hyponatremic with a low potassium of 1.9 and albumin of 1.9. Her appetite is poor and she has not been eating as well. Past Medical History Cardiac Medical History: Reports: Hyperlipidema, Hypertension Pulmonary Medical History: Reports: Chronic Obstructive Pulmonary Disease (COPD), Pneumonia Neurological Medical History: Denies: Seizures GI Medical History: Reports: Gastroesophageal Reflux Disease, Ulcerative Colitis Past Surgical History Past Surgical History: Reports: Other - Cataract surgery Denies: Hysterectomy Social History Smoking Status: Former Smoker Electronic Cigarette use?: No Last Time Smoked: 02/09/2016 Frequency of Alcohol Use: Occasional Hx Recreational Drug Use: No Drugs: None Hx Prescription Drug Abuse: No Family History Family History: Reviewed & Not Pertinent, Arthritis Parental Family History Reviewed: No Children Family History Reviewed: NA Sibling(s) Family History Reviewed.: NA Medication/Allergy Home Medications: Albuterol Sulfate [Proair HFA Inhalation Aerosol 8.5 gm MDI] 2 puff IH Q6HP PRN 11/18/18 Aspirin [Ecotrin 81 mg EC Tablet] 81 mg PO DAILY 11/18/18 Pravastatin Sodium [Pravachol] 10 mg PO QHS 11/18/18 Prednisone [Deltasone 20 mg Tablet] 40 mg PO DAILY 11/18/18 Tiotropium [place] [Spiriva Handihaler 5 Cap/Kit (18 Mcg/Cap)] 1 cap IH DAILY 11/18/18 Megestrol Acetate [Megace Laura 400 mg/10 ml Udcup] 400 mg PO DAILY udc 11/30/18 Mesalamine [Asacol Sr 400 mg Capsule] 1,600 mg PO TID capsule. 11/30/18 Sertraline HCl [Zoloft 50 mg Tablet] 100 mg PO DAILY tablet 11/30/18 Nystatin [Mycostatin 207951 Unit/1 ml Susp 60 ml Btl] 4 ml PO QID 12/03/18 Allergies/Adverse Reactions: No Known Allergies Allergy (Verified 05/18/18 10:22) Review of Systems All systems: reviewed and no additional remarkable complaints except as stated Physical Exam Vital Signs: Temp Pulse Resp BP Pulse Ox 97.5 F 81 18 122/66 92 12/06/18 16:22 12/06/18 16:22 12/06/18 12:52 12/06/18 16:22 12/06/18 16:22 Intake & Output 12/05/18 12/06/18 12/07/18 06:59 06:59 06:59 Intake Total 2350 3372 998 Output Total 1300 925 Balance 1050 2447 998 Weight 77 kg 78.6 kg Exam: General: Patient is alert and looks weak with a low affect HEENT: There is some pallor but no jaundice. PERRLA. Oropharynx normal Respiratory: No chest deformity. No respiratory distress. Chest wall pa lpitation was unremarkable. Breath sounds were normal Cardiovascular: Heart sounds 1 and 2 normal with no murmurs. Abdominal: Not distended. Soft and nontender. Liver and spleen not palpable. No ascites demonstrated. Bowel sounds active. Rectal examination was deferred. Extremities: Bilateral pitting edema Neurological: Alert and oriented x4. Grossly nonfocal. Normal speech Skin: No significant rash Psychological: Low affect Results Laboratory Results: 12/06/18 06:13 12/06/18 06:26 12/05/18 12/05/18 12/06/18 05:26 17:50 06:13 WBC 7.7 6.0 RBC 2.56 L 4.09 Hgb 7.7 L 12.9 D Hct 23.8 L 37.6 MCV 93 92 MCH 30.1 31.6 MCHC 32.4 34.4 RDW 19.6 H 16.5 H Plt Count 136 L 103 L Seg Neutrophils % Not Reportable 86.7 H Sodium Potassium Chloride Carbon Dioxide Anion Gap BUN Creatinine Est GFR ( Amer) Glucose Calcium Total Bilirubin AST Alkaline Phosphatase Total Protein Albumin Blood Type O POSITIVE Antibody Screen NEGATIVE 12/06/18 06:26 WBC RBC Hgb Hct MCV MCH MCHC RDW Plt Count Seg Neutrophils % Sodium 136.9 L Potassium 2.2 L* Chloride 101 Carbon Dioxide 28 Anion Gap 8 BUN 8 Creatinine 0.40 L Est GFR ( Amer) > 60 Glucose 169 H Calcium 6.8 L* Total Bilirubin 1.3 AST 22 Alkaline Phosphatase 440 H Total Protein 4.3 L Albumin 2.0 L Blood Type Antibody Screen 12/04/18 14:50 Sputum Gram Stain - Final 12/04/18 14:50 Sputum Sputum Culture - Final REDUCED NORMAL STEVENSON 12/03/18 10:03 Troponin I < 0.012 Impressions: Chest X-Ray 12/03/18 09:56 IMPRESSION: In deterioration the chest. Increased left pleural effusion and atelectasis/ infiltrate at the left base. Right effusion and possible right pneumonia as well. Abdomen X-Ray 12/05/18 00:00 IMPRESSION: 1. Dense opacity in the left base that could represent a combination of pleural fluid, atelectasis, and/or consolidation. 2. Nonobstructive bowel gas pattern. 3. Ahaustral appearance of the transverse colon as on the correlative CT from 11/17/2018. Correlate with clinical findings to exclude an infectious or inflammatory colitis. Assessment & Plan - Diagnosis (1) Ulcerative pancolitis with complication Is this a current diagnosis for this admission?: Yes Plan: She has ulcerative pancolitis based on previous CAT scan and a previous sig moidoscopy showed severe colitis in the rectosigmoid area. She has been on steroids since 10/16/2018 initially starting with 60 mg and then 40 mg over the last few weeks except for when she was in the hospital at which time she was receiving IV hydrocortisone. She has remained on mesalamine since October. Her most recent CAT scan did suggest improvement and her symptoms were also getting better but slowly. Considering the complaint of rectal bleeding and her generalized state I will do a sigmoidoscopy to assess healing. Remicade would be an option if she has significant colitis but her diagnosis of pneumonia contraindicates that. She is also not a good candidate for pancolectomy at this time. We may have to continue with steroids with the hope of tapering soon and may be add a steroid sparing agent like 6-MP. Depending on her sigmoidoscopy finding mesalamine enema may be added. I will suggest Albumin for a few days to help with her nutritional status. TPN may also be considered while she is in the hospital (2) Anemia due to blood loss Is this a current diagnosis for this admission?: Yes (3) Depression Qualifiers: Depression Type: major depressive disorder Major depression recurrence: recurrent Active/Remission status: currently active Major depression episode severity: severe Psychotic features: without psychotic features Qualified Code(s): F33.2 - Major depressive disorder, recurrent severe without psychotic features Is this a current diagnosis for this admission?: Yes (4) Hypokalemia Is this a current diagnosis for this admission?: Yes (5) retirement (current) use of systemic steroids Is this a current diagnosis for this admission?: Yes
--- NOTE | 2018-12-06 17:31 | Operative Report ---
Operative Report DATE OF SURGERY: 12/06/18 Operative Report: Pre-op diagnosis: Ulcerative colitis and rectal bleeding Post-op diagnosis: 1. Left-sided proctocolitis worse in the rectum 2. Rectal polyp-not removed Surgery: Flexible sigmoidoscopy with biopsy Medications: None Tissue removed: Biopsy of sigmoid and rectum Procedure: After informed consent obtained from patient, a digital rectal examination was performed and this was unremarkable. The colonoscope was inserted into the rectum and advanced to the descending colon. The mucosa was examined into details as the colonoscope was slowly pulled out of the patient. Patient tolerated the procedure well. Findings Descending colon: There were multiple pseudopolyps in the distal descending colon with scattered ulceration. There is significant part of the descending colon had no evidence of inflammation. Sigmoid colon: A few 5 to 10 mm ulceration was identified with multiple pseudopolyps. Rectum: There was significant ulceration involving most of the rectum and multiple pseudopolyps. The appearance is less acute compared to the endoscopic picture in October. There was a 15 to 18 mm polyp in the rectum that looked adenomatous but was not removed. Plan: I will add mesalamine enema daily. She will continue with steroids and mesalamine by mouth. OPERATION: .
--- NOTE | 2018-12-06 20:30 | PDOC PROGRESS REPORT ---
Subjective Progress Note for:: 12/06/18 Subjective:: Patient seen by the bedside, she was seen by GI, Dr. Martin, she had sigmoidoscopy done today Reason For Visit: NOSOCOMIAL PNEUMONIA Physical Exam Vital Signs: Temp Pulse Resp BP Pulse Ox 97.5 F 81 18 122/66 92 12/06/18 16:22 12/06/18 16:22 12/06/18 12:52 12/06/18 16:22 12/06/18 16:22 Intake & Output 12/05/18 12/06/18 12/07/18 06:59 06:59 06:59 Intake Total 2350 3372 1148 Output Total 2395 856 8662 Balance 1050 2447 -952 Weight 77 kg 78.6 kg General appearance: PRESENT: no acute distress Eye exam: PRESENT: PERRLA Respiratory exam: PRESENT: clear to auscultation mayra Cardiovascular exam: PRESENT: +S1, +S2 GI/Abdominal exam: PRESENT: soft Neurological exam: PRESENT: alert Results Laboratory Results: 12/06/18 06:13 12/06/18 06:26 12/05/18 12/06/18 12/06/18 05:26 06:13 06:26 WBC 6.0 RBC 4.09 Hgb 12.9 D Hct 37.6 MCV 92 MCH 31.6 MCHC 34.4 RDW 16.5 H Plt Count 103 L Seg Neutrophils % 86.7 H Sodium 136.9 L Potassium 2.2 L* Chloride 101 Carbon Dioxide 28 Anion Gap 8 BUN 8 Creatinine 0.40 L Est GFR ( Amer) > 60 Glucose 169 H Calcium 6.8 L* Total Bilirubin 1.3 AST 22 Alkaline Phosphatase 440 H Total Protein 4.3 L Albumin 2.0 L Blood Type O POSITIVE Antibody Screen NEGATIVE 12/04/18 14:50 Sputum Gram Stain - Final 12/04/18 14:50 Sputum Sputum Culture - Final REDUCED NORMAL STEVENSON 12/03/18 10:03 Troponin I < 0.012 Impressions: Chest X-Ray 12/03/18 09:56 IMPRESSION: In deterioration the chest. Increased left pleural effusion and atelectasis/ infiltrate at the left base. Right effusion and possible right pneumonia as well. Abdomen X-Ray 12/05/18 00:00 IMPRESSION: 1. Dense opacity in the left base that could represent a combination of pleural fluid, atelectasis, and/or consolidation. 2. Nonobstructive bowel gas pattern. 3. Ahaustral appearance of the transverse colon as on the correlative CT from 11/17/2018. Correlate with clinical findings to exclude an infectious or inflammatory colitis. Assessment & Plan - Diagnosis (1) Nosocomial pneumonia Is this a current diagnosis for this admission?: Yes Plan: Continue IV antibiotic (2) Ulcerative pancolitis Is this a current diagnosis for this admission?: Yes (3) Depression Qualifiers: Depression Type: major depressive disorder Major depression recurrence: r ecurrent Active/Remission status: currently active Major depression episode severity: severe Psychotic features: without psychotic features Qualified Code(s): F33.2 - Major depressive disorder, recurrent severe without psychotic features Is this a current diagnosis for this admission?: Yes Plan: Continue sertraline (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 Is this a current diagnosis for this admission?: Yes (5) Hypokalemia Is this a current diagnosis for this admission?: Yes Plan: Replace potassium (6) Anemia due to blood loss Is this a current diagnosis for this admission?: Yes Plan: Status post transfusion of red blood cells (7) Retention of urine Is this a current diagnosis for this admission?: Yes (8) Urinary tract infection associated with catheterization of urinary tract Qualifiers: Indwelling urinary catheter type: indwelling urethral catheter Encounter type: initial encounter Qualified Code(s): T83.511A - Infection and inflammatory reaction due to indwelling urethral catheter, initial encounter; N39.0 - Urinary tract infection, site not specified Is this a current diagnosis for this admission?: Yes Plan: The urine culture grew Pseudomonas sensitive to cefepime (9) Hypoalbuminemia Is this a current diagnosis for this admission?: Yes Plan: She has a very poor intake, she may require TPN - Time Time Spent with patient: 35 or more minutes Level of Care: IMCU Medications reviewed and adjusted accordingly: Yes
[2018-12-06 20:57] LABS: ALBUMIN 2.2 g/dL (3.5-5.0); ALKALINE PHOSPHATASE 361 U/L (38-126); ANION GAP 11 (5-19); ASPARTATE AMINO TRANSFERASE 23 U/L (14-36); BILIRUBIN,DIRECT 0.6 mg/dL (0.0-0.4); BLOOD UREA NITROGEN 7 mg/dL (7-20); CALCIUM 7.4 mg/dL (8.4-10.2); CARBON DIOXIDE 27 mmol/L (22-30); CHLORIDE 100 mmol/L (98-107); GLUCOSE 125 mg/dL (75-110); TOTAL PROTEIN 4.5 g/dL (6.3-8.2)
[2018-12-06 21:09] LABS: POTASSIUM 2.5 mmol/L (3.6-5.0)
[2018-12-06] MEDS: MESALAMINE 4 GM/60 ML ENEMA PR SCH (22:38)
[2018-12-06] MEDS: ATORVASTATIN CALCIUM 10 MG TABLET PO SCH (22:59)
[2018-12-06] MEDS: POTASSIUM CHLORIDE 20 MEQ/50 ML RTU IV SCH (23:11)
[2018-12-07] MEDS: POTASSIUM CHLORIDE 20 MEQ/50 ML RTU IV SCH ×2 (00:31→02:32)
[2018-12-07] MEDS: ALBUMIN HUMAN 12.5 GM/50 ML RTUINJ IV SCH ×3 (06:17→21:23)
[2018-12-07] MEDS: HEPARIN SOD (PORCINE) 5,000 UNIT/ML 1 ML VIAL SUBCUT SCH ×2 (06:18→13:52)
[2018-12-07] MEDS: VANCOMYCIN HCL 1,250 MG in DEXTROSE 5%-WATER 250 ML IV SCH (06:19)
[2018-12-07 06:25] LABS: HEMATOCRIT 33.7 % (36.0-47.0); HEMOGLOBIN 11.5 g/dL (12.0-15.5); MEAN CORPUSCULAR HEMOGLOBIN 31.4 pg (27.0-33.4); MEAN CORPUSCULAR HGB CONC 34.1 g/dL (32.0-36.0); MEAN CORPUSCULAR VOLUME 92 fl (80-97); RED BLOOD COUNT 3.67 10^6/uL (3.72-5.28); RED CELL DISTRIBUTION WIDTH 16.6 % (11.5-14.0); WHITE BLOOD COUNT 6.4 10^3/uL (4.0-10.5)
[2018-12-07 06:45] LABS: ANION GAP 6 (5-19); BLOOD UREA NITROGEN 5 mg/dL (7-20); CALCIUM 7.1 mg/dL (8.4-10.2); CARBON DIOXIDE 31 mmol/L (22-30); CHLORIDE 101 mmol/L (98-107); GLUCOSE 123 mg/dL (75-110); POTASSIUM 3.3 mmol/L (3.6-5.0)
[2018-12-07 07:17] LABS: PLATELET COUNT 86 10^3/uL (150-450)
[2018-12-07] MEDS: NYSTATIN 500000 UNIT/5 ML UDCUP PO SCH ×4 (10:28→21:24)
[2018-12-07] MEDS: CALCIUM CARBONATE 250 MG/VITAMIN D3 125 UNIT TABLET PO SCH (10:28)
[2018-12-07] MEDS: MESALAMINE 400 MG CAPSULE.DR PO SCH ×3 (10:29→18:49)
[2018-12-07] MEDS: BETHANECHOL CHLORIDE 25 MG TABLET PO SCH ×2 (10:29→18:51)
[2018-12-07] MEDS: SERTRALINE HCL 50 MG TABLET PO SCH (10:29)
[2018-12-07] MEDS: MEGESTROL ACETATE SUSP 400 MG/10 ML UDCUP PO SCH (10:29)
[2018-12-07] MEDS: METHYLPREDNISOLONE INJ 40 MG/1 ML SDV IV SCH ×2 (10:29→21:23)
[2018-12-07] MEDS: UMECLIDINIUM BROMIDE 62.5 MCG/DOSE IH SCH (10:30)
[2018-12-07] MEDS: MESALAMINE 4 GM/60 ML ENEMA PR SCH (10:30)
[2018-12-07] MEDS: ASPIRIN 81 MG TABLET, ENT COATED PO SCH (10:30)
[2018-12-07] MEDS: CEFEPIME 2 GM/D5W RTU 2 GM/50 ML RTUPB IV SCH ×2 (10:45→21:22)
[2018-12-07] MEDS: POTASSI CL 40 MEQ/D5-1/2NS 1L 40 MEQ/1,000 ML RTUINJ IV PRN ×2 (10:48→21:18)
--- NOTE | 2018-12-07 13:12 | RADIOLOGY REPORT (SQ) ---
EXAM DESCRIPTION: CHEST SINGLE VIEW COMPLETED DATE/TIME: 12/07/2018 1:01 pm REASON FOR STUDY: c-line COMPARISON: 12/03/2018 EXAM PARAMETERS: NUMBER OF VIEWS: One view. TECHNIQUE: Single frontal radiographic view of the chest acquired. RADIATION DOSE: NA LIMITATIONS: None. FINDINGS: LUNGS AND PLEURA: Decreased size of the left-sided pleural effusion with persistent mild b asilar consolidation, likely atelectasis. No new airspace disease. No pneumothorax. MEDIASTINUM AND HILAR STRUCTURES: No masses. Contour normal. HEART AND VASCULAR STRUCTURES: Stable. Aortic atherosclerosis. BONES: No acute findings. HARDWARE: Left internal jugular based central venous catheter with tip at SVC. OTHER: No other significant finding. IMPRESSION: New left internal jugular central venous catheter within the proximal SVC. No pneumotho rax. Decreased left basilar effusion and consolidation, likely atelectasis. TECHNICAL DOCUMENTATION: JOB ID: [id number] [employer]- All Rights Reserved Reading location - IP/workstation name: [email or web address]
[2018-12-07] MEDS ORDERED: GLUCAGON,HUMAN RECOMB 1 MG INJ IM PRN (13:30)
[2018-12-07] MEDS ORDERED: DEXTROSE 10%-WATER 1,000 ML IV PRN (13:30)
[2018-12-07] MEDS ORDERED: DEXTROSE 50%-WATER SYRINGE 12.5 GM/25 ML DOSE IV PRN (13:30)
[2018-12-07] MEDS ORDERED: DEXTROSE 40% GEL 15 GM TUBE X 2 PO PRN (13:30)
[2018-12-07] MEDS ORDERED: DEXTROSE 40% GEL 15 GM TUBE PO PRN (13:30)
[2018-12-07] MEDS ORDERED: DEXTROSE 50%-WATER SYRINGE 25 GM/50 ML DOSE IV PRN (13:30)
--- NOTE | 2018-12-07 13:45 | Operative Report ---
Nonrecallable Operative Report DATE OF SURGERY: 12/07/18 PREOPERATIVE DIAGNOSIS: 1. Phlebosclerosis. 2. Malnutrition POSTOPERATIVE DIAGNOSIS: Same as above OPERATION: 1. Ultrasound-guided central venous puncture. 2. Left internal jugular vein central line placement. SURGEON: SAMIR REID ANESTHESIA: Local TISSUE REMOVED OR ALTERED: None COMPLICATIONS: None apparent ESTIMATED BLOOD LOSS: Minimal PROCEDURE: Drains/implants: Left internal jugular vein central line placed at 14 cm. Procedure in detail: After informed consent was obtained, the patient was laid in the Trendelenburg position in the hospital room. The area of the left neck and chest were prepped and draped in a normal sterile fashion. An ultrasound was used to identify the left internal jugular vein. It was compressible with normal flow. Next, under direct ultrasonic guidance the supplied access needle was used to cannulate the left internal jugular vein. Dark venous, nonpulsatile blood was returned in the syringe. The wire was inserted into the vein easily. The wire was confirmed to be within the lumen of the vein using the ultrasound device. Photodocumentation was obtained. The catheter was then slid over the wire using a modified Seldinger technique. The catheter was sutured to the skin. It was aspirated and flushed easily. The catheter returned dark venous, nonpulsatile blood. A dressing was then placed, including a Biopatch. At this time the procedure was concluded. All sponge, instrument, and needle counts were correct. Condition: Stable.
[2018-12-07 16:37] LABS: HEPATITS B SURFACE ANTIGEN Negative (Negative)
[2018-12-07 17:28] LABS: ABSOLUTE LYMPHOCYTES (AUTO) 0.7 10^3/uL (0.5-4.7); ABSOLUTE MONOCYTES (AUTO) 0.2 10^3/uL (0.1-1.4); ABSOLUTE NEUT (AUTO) 5.6 10^3/uL (1.7-8.2); HEMATOCRIT 28.4 % (36.0-47.0); HEMOGLOBIN 9.9 g/dL (12.0-15.5); MEAN CORPUSCULAR HEMOGLOBIN 32.2 pg (27.0-33.4); MEAN CORPUSCULAR HGB CONC 34.7 g/dL (32.0-36.0); MEAN CORPUSCULAR VOLUME 93 fl (80-97); MONOCYTES % (AUTO) 2.4 % (3-13); RED BLOOD COUNT 3.07 10^6/uL (3.72-5.28); RED CELL DISTRIBUTION WIDTH 16.8 % (11.5-14.0); SEGMENTED NEUTROPHILS % (AUTO) 86.6 % (42-78); TOTAL CELLS COUNTED % (AUTO) 100 %; WHITE BLOOD COUNT 6.4 10^3/uL (4.0-10.5)
[2018-12-07 17:47] LABS: PLATELET COUNT 74 10^3/uL (150-450)
[2018-12-07] MEDS: AMINO ACIDS 5 %/DEXTROSE 20 % 1,000 ML IV PRN (18:49)
[2018-12-07] MEDS: INSULIN REG, HUMAN 100 UNIT/ML 3 ML VIAL (PYX) SUBCUT SCH (18:50)
--- NOTE | 2018-12-07 19:19 | PDOC PROGRESS REPORT ---
Subjective Progress Note for:: 12/07/18 Subjective:: I saw her yesterday for a sigmoidoscopy which still showed significant left- sided proctocolitis but improved compared with a month ago. I added mesalamine enemas. She again had some bleeding this evening and continues to have a very poor appetite. Her hemoglobin was 11.5 this morning and this evening it is 9.9. Her platelet count has also been dropping since admission when it was normal at 161 and today it is 74. She started TPN today and continues on IV albumin until tomorrow. Reason For Visit: NOSOCOMIAL PNEUMONIA Physical Exam Vital Signs: Temp Pulse Resp BP Pulse Ox 98.3 F 104 H 18 133/83 H 93 12/07/18 16:05 12/07/18 16:05 12/07/18 16:05 12/07/18 16:05 12/07/18 16:05 Intake & Output 12/06/18 12/07/18 12/08/18 06:59 06:59 06:59 Intake Total 3372 2183 348 Output Total 925 3800 2500 Balance 2740 -6101 -7596 Weight 78.6 kg 75.2 kg Results Laboratory Results: 12/07/18 16:50 12/07/18 06:04 12/06/18 12/07/18 12/07/18 16:19 06:04 06:04 WBC 6.4 RBC 3.67 L Hgb 11.5 L Hct 33.7 L MCV 92 MCH 31.4 MCHC 34.1 RDW 16.6 H Plt Count 86 L Seg Neutrophils % Sodium 137.8 137.5 Potassium 2.5 L* 3.3 L Chloride 100 101 Carbon Dioxide 27 31 H Anion Gap 11 6 BUN 7 5 L Creatinine 0.37 L 0.30 L Est GFR ( Amer) > 60 > 60 Glucose 125 H 123 H Calcium 7.4 L 7.1 L Magnesium 1.7 Total Bilirubin 1.0 AST 23 Alkaline Phosphatase 361 H Total Protein 4.5 L Albumin 2.2 L 12/07/18 16:50 WBC 6.4 RBC 3.07 L Hgb 9.9 L Hct 28.4 L MCV 93 MCH 32.2 MCHC 34.7 RDW 16.8 H Plt Count 74 L Seg Neutrophils % 86.6 H Sodium Potassium Chloride Carbon Dioxide Anion Gap BUN Creatinine Est GFR ( Amer) Glucose Calcium Magnesium Total Bilirubin AST Alkaline Phosphatase Total Protein Albumin 12/03/18 10:03 Troponin I < 0.012 Impressions: Abdomen X-Ray 12/05/18 00:00 IMPRESSION: 1. Dense opacity in the left base that could represent a combination of pleural fluid, atelectasis, and/or consolidation. 2. Nonobstructive bowel gas pattern. 3. Ahaustral appearance of the transverse colon as on the correlative CT from 11/17/2018. Correlate with clinical findings to exclude an infectious or inflammatory colitis. Chest X-Ray 12/07/18 00:00 IMPRESSION: New left internal jugular central venous catheter within the proximal SVC. No pneumothorax. Decreased left basilar effusion and consolidation, likely atelectasis. Assessment & Plan - Diagnosis (1) Ulcerative pancolitis with complication Is this a current diagnosis for this admission?: Yes Plan: She continues to bleed off and on from her ulcerative colitis. We will continue with Solu-Medrol, mesalamine by mouth and rectally. She is not a candidate for Remicade or colectomy at this time. She was evaluated by Dr. Coffman this evening. Her H&H will be followed and transfused as needed. She is now on TPN which should definitely help. (2) Thrombocytopenia Is this a current diagnosis for this admission?: Yes Plan: Her thrombocytopenia is worsening and I suspect this is from her medications probably the antibiotics. I will hold aspirin and we should consider changing her medications (3) Anemia due to blood loss Is this a current diagnosis for this admission?: Yes (4) Depression Qualifiers: Depression Type: major depressive disorder Major depression recurrence: recurrent Active/Remission status: currently active Major depression episode severity: severe Psychotic features: without psychotic features Qualified Code(s): F33.2 - Major depressive disorder, recurrent severe without psychotic features Is this a current diagnosis for this admission?: Yes (5) Hypokalemia Is this a current diagnosis for this admission?: Yes (6) long term (current) use of systemic steroids Is this a current diagnosis for this admission?: Yes - Time Time Spent with patient: 15-24 minutes
--- NOTE | 2018-12-07 20:43 | PDOC PROGRESS REPORT ---
Subjective Progress Note for:: 12/07/18 Subjective:: Patient had episode of large amount of blood loss rectally, CBC showed severe thrombocytopenia, platelet count has been progressively decreasing, the heparin product has been on hold, this to be discontinued Reason For Visit: NOSOCOMIAL PNEUMONIA Physical Exam Vital Signs: Temp Pulse Resp BP Pulse Ox 98.3 F 75 18 133/83 H 93 12/07/18 16:05 12/07/18 19:00 12/07/18 16:05 12/07/18 16:05 12/07/18 16:05 Intake & Output 12/06/18 12/07/18 12/08/18 06:59 06:59 06:59 Intake Total 3372 2183 448 Output Total 925 3800 2500 Balance 9330 -5385 -4648 Weight 78.6 kg 75.2 kg General appearance: PRESENT: no acute distress Eye exam: PRESENT: PERRLA Respiratory exam: PRESENT: clear to auscultation mayra Cardiovascular exam: PRESENT: +S1, +S2 GI/Abdominal exam: PRESENT: soft Neurological exam: PRESENT: alert Results Laboratory Results: 12/07/18 16:50 12/07/18 06:04 12/06/18 12/07/18 12/07/18 16:19 06:04 06:04 WBC 6.4 RBC 3.67 L Hgb 11.5 L Hct 33.7 L MCV 92 MCH 31.4 MCHC 34.1 RDW 16.6 H Plt Count 86 L Seg Neutrophils % Sodium 137.8 137.5 Potassium 2.5 L* 3.3 L Chloride 100 101 Carbon Dioxide 27 31 H Anion Gap 11 6 BUN 7 5 L Creatinine 0.37 L 0.30 L Est GFR ( Amer) > 60 > 60 Glucose 125 H 123 H Calcium 7.4 L 7.1 L Magnesium 1.7 Total Bilirubin 1.0 AST 23 Alkaline Phosphatase 361 H Total Protein 4.5 L Albumin 2.2 L 12/07/18 16:50 WBC 6.4 RBC 3.07 L Hgb 9.9 L Hct 28.4 L MCV 93 MCH 32.2 MCHC 34.7 RDW 16.8 H Plt Count 74 L Seg Neutrophils % 86.6 H Sodium Potassium Chloride Carbon Dioxide Anion Gap BUN Creatinine Est GFR ( Amer) Glucose Calcium Magnesium Total Bilirubin AST Alkaline Phosphatase Total Protein Albumin 12/03/18 10:03 Troponin I < 0.012 Impressions: Abdomen X-Ray 12/05/18 00:00 IMPRESSION: 1. Dense opacity in the left base that could represent a combination of pleural fluid, atelectasis, and/or consolidation. 2. Nonobstructive bowel gas pattern. 3. Ahaustral appearance of the transverse colon as on the correlative CT from 11/17/2018. Correlate with clinical findings to exclude an infectious or inflammatory colitis. Chest X-Ray 12/07/18 00:00 IMPRESSION: New left internal jugular central venous catheter within the proximal SVC. No pneumothorax. Decreased left basilar effusion and consolidation, likely atelectasis. Assessment & Plan - Diagnosis (1) Nosocomial pneumonia Is this a current diagnosis for this admission?: Yes Plan: Continue IV antibiotic (2) Ulcerative pancolitis Is this a current diagnosis for this admission?: Yes Plan: Patient with ulcerative colitis, she had episode of severe GI bleed, this is probably related to the thrombocytopenia, there has been a progressive decline in the platelet count, she will be transfused with platelets because of the severe GI bleed associated with low platelet count (3) Depression Qualifiers: Depression Type: major depressive disorder Major depression recurrence: recurrent Active/Remission status: currently active Major depression episode severity: severe Psychotic features: without psychotic features Qualified Code(s): F33.2 - Major depressive disorder, recurrent severe without psychotic features Is this a current diagnosis for this admission?: Yes (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 Is this a current diagnosis for this admission?: Yes (5) Hypokalemia Is this a current diagnosis for this admission?: Yes (6) Anemia due to blood loss Is this a current diagnosis for this admission?: Yes (7) Retention of urine Is this a current diagnosis for this admission?: Yes (8) Urinary tract infection associated with catheterization of urinary tract Qualifiers: Indwelling urinary catheter type: indwelling urethral catheter Encounter type: initial encounter Qualified Code(s): T83.511A - Infection and inflammatory reaction due to indwelling urethral catheter, initial encounter; N39.0 - Urinary tract infection, site not specified Is this a current diagnosis for this admission?: Yes (9) Hypoalbuminemia Is this a current diagnosis for this admission?: Yes Plan: Patient started on TPN (10) Thrombocytopenia Is this a current diagnosis for this admission?: Yes Plan: The platelet count has been progressively decreasing since admission but it drop precipitously the last 24 to 48 hours,, This is probably secondary to medication unlikely to be heparin-induced thrombocytopenia typically heparin-induced thrombocytopenia, platelet count with drop 5 to 10 days after initiation of heparin,, The platelet count may decrease within 24 hours in patients with exposure to heparin within the last 100 days but heparin induced thrombocytopenia is rarely associated with bleeding,Because of the severe bleeding patient be transfused with platelets - Time Time Spent with patient: 35 or more minutes Level of Care: IMCU Medications reviewed and adjusted accordingly: Yes
[2018-12-07] MEDS ORDERED: NORMAL SALINE 250 ML IV PRN ×2 (20:44)
[2018-12-07] MEDS: ATORVASTATIN CALCIUM 10 MG TABLET PO SCH (21:24)
[2018-12-07 22:56] LABS: INTERNATIONAL RATION (INR) 1.68; PROTHROMBIN TIME 19.9 SEC (11.4-15.4)
[2018-12-07 22:57] LABS: PARTIAL THROMBOPLASTIN TIME 35.1 SEC (23.5-35.8)
[2018-12-08] MEDS: INSULIN REG, HUMAN 100 UNIT/ML 3 ML VIAL (PYX) SUBCUT SCH ×4 (01:26→18:49)
[2018-12-08 05:10] LABS: HEMATOCRIT 16.1 % (36.0-47.0); MEAN CORPUSCULAR HGB CONC 33.8 g/dL (32.0-36.0); MEAN CORPUSCULAR VOLUME 95 fl (80-97); RED CELL DISTRIBUTION WIDTH 17.1 % (11.5-14.0)
[2018-12-08 05:11] LABS: HEMOGLOBIN 5.4 g/dL (12.0-15.5)
[2018-12-08 05:12] LABS: PLATELET COUNT 91 10^3/uL (150-450)
[2018-12-08 05:13] LABS: ABSOLUTE LYMPHOCYTES# (MANUAL) 0.8 10^3/uL (0.5-4.7); ABSOLUTE MONOCYTES # (MANUAL) 0.2 10^3/uL (0.1-1.4); ANISOCYTOSIS 1+; BASOPHILS % (MANUAL) 0 % (0-2); EOSINOPHILS % (MANUAL) 0 % (0-6); LYMPHOCYTES % (MANUAL) 16 % (13-45); MONOCYTES % (MANUAL) 4 % (3-13); PLATELET COMMENT DECREASED; SEGMENTED NEUTROPHILS % (MAN) 80 % (42-78); TOTAL CELLS COUNTED 100; TOXIC GRANULATION 1+
[2018-12-08] MEDS: VANCOMYCIN HCL 1,250 MG in DEXTROSE 5%-WATER 250 ML IV SCH (05:38)
[2018-12-08] MEDS: ALBUMIN HUMAN 12.5 GM/50 ML RTUINJ IV SCH ×2 (05:40→17:14)
--- NOTE | 2018-12-08 06:47 | PDOC CONSULTATION ---
Consultation Consult Date: 12/08/18 Provider Consulted: SAMIR REDI Consult reason:: Ulcerative colitis, rectal bleeding. History of Present Illness Admission Date/PCP: 12/03/18 15:00 ARTIS VENEGAS MD Patient complains of: Abdominal pain, rectal bleeding History of Present Illness: NAN ALMEIDA is a 73 year old female with ulcerative colitis. She is being treated by Dr. Martin with steroids and ASA derivatives. The patient still has significant symptoms. Recent colonoscopy shows improvement of the ulcerative colitis, but still a large amount of ulceration and inflammation. The patient is being worked up now to start Humira. The patient's last bowel movement was bloody yesterday. She reports rectal pain and discomfort. She is frustrated that she is not better. The is present for the discussion regarding surgical options. At this time the patient denies chest pain, shortness of breath, fevers, chills, nausea, vomiting, dizziness, orthostasis, malaise. She does report rectal discomfort, rectal bleeding. Past Medical History Cardiac Medical History: Reports: Hyperlipidema, Hypertension Pulmonary Medical History: Reports: Chronic Obstructive Pulmonary Disease (COPD) , Pneumonia Neurological Medical History: Denies: Seizures GI Medical History: Reports: Gastroesophageal Reflux Disease, Ulcerative Colitis Past Surgical History Past Surgical History: Reports: Other - Cataract surgery Denies: Hysterectomy Social History Smoking Status: Former Smoker Electronic Cigarette use?: No Last Time Smoked: 02/09/2016 Frequency of Alcohol Use: Occasional Hx Recreational Drug Use: No Drugs: None Hx Prescription Drug Abuse: No Family History Family History: Reviewed & Not Pertinent, Arthritis Parental Family History Reviewed: Yes Children Family History Reviewed: Yes Sibling(s) Family History Reviewed.: Yes Medication/Allergy Home Medications: Albuterol Sulfate [Proair HFA Inhalation Aerosol 8.5 gm MDI] 2 puff IH Q6HP PRN 11/18/18 Aspirin [Ecotrin 81 mg EC Tablet] 81 mg PO DAILY 11/18/18 Pravastatin Sodium [Pravachol] 10 mg PO QHS 11/18/18 Prednisone [Deltasone 20 mg Tablet] 40 mg PO DAILY 11/18/18 Tiotropium [place] [Spiriva Handihaler 5 Cap/Kit (18 Mcg/Cap)] 1 cap IH DAILY 11/18/18 Megestrol Acetate [Megace Laura 400 mg/10 ml Udcup] 400 mg PO DAILY udc 11/30/18 Mesalamine [Asacol Sr 400 mg Capsule] 1,600 mg PO TID capsule. 11/30/18 Sertraline HCl [Zoloft 50 mg Tablet] 100 mg PO DAILY tablet 11/30/18 Nystatin [Mycostatin 849197 Unit/1 ml Susp 60 ml Btl] 4 ml PO QID 12/03/18 Allergies/Adverse Reactions: No Known Allergies Allergy (Verified 05/18/18 10:22) Review of Systems Constitutional: ABSENT: chills, fatigue Eyes: ABSENT: visual disturbances Ears: ABSENT: hearing changes Cardiovascular: ABSENT: chest pain Respiratory: ABSENT: cough, dyspnea Gastrointestinal: PRESENT: abdominal pain - Rectal pain, hematochezia. ABSENT: heartburn, hematemesis, nausea, vomiting Genitourinary: ABSENT: dysuria Musculoskeletal: ABSENT: back pain Integumentary: ABSENT: pruritus, rash Neurological: ABSENT: confusion, convulsions, dizziness Psychiatric: ABSENT: anxiety, depression Endocrine: ABSENT: cold intolerance, heat intolerance Hematologic/Lymphatic: ABSENT: easy bleeding Physical Exam Vital Signs: Temp Pulse Resp BP Pulse Ox 98.3 F 125 H 16 99/54 L 97 12/08/18 00:20 12/08/18 00:20 12/08/18 00:20 12/08/18 00:20 12/08/18 00:20 Intake & Output 12/06/18 12/07/18 12/08/18 06:59 06:59 06:59 Intake Total 3372 2183 1798 Output Total 925 3800 2500 Balance 1827 -5919 -852 Weight 78.6 kg 75.2 kg General appearance: PRESENT: no acute distress, cooperative Head exam: PRESENT: atraumatic, normocephalic Eye exam: PRESENT: EOMI, PERRLA. ABSENT: scleral icterus Mouth exam: PRESENT: moist, neck supple Neck exam: ABSENT: tenderness, thyromegaly, tracheal deviation Respiratory exam: PRESENT: unlabored. ABSENT: chest wall tenderness, tachypnea, wheezes Cardiovascular exam: PRESENT: RRR Pulses: PRESENT: normal radial pulses Vascular exam: PRESENT: normal capillary refill. ABSENT: pallor GI/Abdominal exam: PRESENT: soft. ABSENT: distended, tenderness Rectal exam: PRESENT: deferred Extremities exam: ABSENT: clubbing Neurological exam: PRESENT: alert, awake, oriented to person, oriented to place, oriented to time, oriented to situation, CN II-XII grossly intact. ABSENT: motor sensory deficit Psychiatric exam: PRESENT: agitated - Mild. ABSENT: anxious, depressed Focused psych exam: ABSENT: delusional Results Laboratory Results: 12/07/18 16:50 12/07/18 06:04 12/07/18 12/07/18 12/07/18 06:04 06:04 16:50 WBC 6.4 6.4 RBC 3.67 L 3.07 L Hgb 11.5 L 9.9 L Hct 33.7 L 28.4 L MCV 92 93 MCH 31.4 32.2 MCHC 34.1 34.7 RDW 16.6 H 16.8 H Plt Count 86 L 74 L Seg Neutrophils % 86.6 H Sodium 137.5 Potassium 3.3 L Chloride 101 Carbon Dioxide 31 H Anion Gap 6 BUN 5 L Creatinine 0.30 L Est GFR ( Amer) > 60 Glucose 123 H Calcium 7.1 L Magnesium 1.7 Blood Type Antibody Screen 12/07/18 22:10 WBC RBC Hgb Hct MCV MCH MCHC RDW Plt Count Seg Neutrophils % Sodium Potassium Chloride Carbon Dioxide Anion Gap BUN Creatinine Est GFR ( Amer) Glucose Calcium Magnesium Blood Type O POSITIVE Antibody Screen NEGATIVE 12/03/18 10:03 Troponin I < 0.012 Impressions: Abdomen X-Ray 12/05/18 00:00 IMPRESSION: 1. Dense opacity in the left base that could represent a combination of pleural fluid, atelectasis, and/or consolidation. 2. Nonobstructive bowel gas pattern. 3. Ahaustral appearance of the transverse colon as on the correlative CT from 11/17/2018. Correlate with clinical findings to exclude an infectious or inflammatory colitis. Chest X-Ray 12/07/18 00:00 IMPRESSION: New left internal jugular central venous catheter within the proximal SVC. No pneumothorax. Decreased left basilar effusion and consolidation, likely atelectasis. Assessment & Plan - Diagnosis (1) Ulcerative colitis Qualifiers: Ulcerative colitis location: ulcerative proctitis Digestive disease complication type: with rectal bleeding Qualified Code(s): K51.211 - Ulcerative (chronic) proctitis with rectal bleeding Is this a current diagnosis for this admission?: Yes - Plan Summary Plan Summary: This is a 73-year-old female with ulcerative colitis. She continues to experience rectal bleeding. She is taking steroids and mesalamine. The appearance of her colon is improving, via endoscopy. The patient is frustrated with her lack of progress. She had a bloody bowel movement yesterday. I have previously discussed surgical intervention with them. Considering her current treatment course, total abdominal colectomy with end ileostomy is the most appropriate surgical therapy. I would not recommend an ileo-rectal anastomosis in the face of active inflammation and oral steroids. This has been discussed with the patient and her . They wish to further discuss the situation with the patient's daughter. I will continue to follow the patient very closely with you. If she decides to undergo surgery, hopefully laparoscopic surgery will be possible. The patient will require medical optimization before operative intervention.
[2018-12-08 07:16] LABS: HEPATITIS C VIRUS ANTIBODY <0.1 s/co ratio (0.0-0.9)
[2018-12-08 08:46] LABS: INTERNATIONAL RATION (INR) 1.44; PROTHROMBIN TIME 17.6 SEC (11.4-15.4)
[2018-12-08 08:47] LABS: PARTIAL THROMBOPLASTIN TIME 31.4 SEC (23.5-35.8)
[2018-12-08 09:12] LABS: ANION GAP 6 (5-19); BLOOD UREA NITROGEN 8 mg/dL (7-20); CALCIUM 7.2 mg/dL (8.4-10.2); CARBON DIOXIDE 29 mmol/L (22-30); CHLORIDE 105 mmol/L (98-107); GLUCOSE 266 mg/dL (75-110); POTASSIUM 3.4 mmol/L (3.6-5.0)
[2018-12-08] MEDS ORDERED: FAT EMULSIONS 250 ML IV SCH (10:00)
[2018-12-08 10:21] LABS: PHOSPHORUS 1.2 mg/dL (2.5-4.5)
[2018-12-08 10:28] LABS: PREALBUMIN 10.9 mg/dL (17.6-36.0)
[2018-12-08] MEDS: ASPIRIN 81 MG TABLET, ENT COATED PO SCH (10:34)
[2018-12-08] MEDS: MESALAMINE 4 GM/60 ML ENEMA PR SCH (10:39)
[2018-12-08] MEDS: BETHANECHOL CHLORIDE 25 MG TABLET PO SCH ×2 (10:45→18:15)
[2018-12-08] MEDS: MEGESTROL ACETATE SUSP 400 MG/10 ML UDCUP PO SCH (10:45)
[2018-12-08] MEDS: SERTRALINE HCL 50 MG TABLET PO SCH (10:45)
[2018-12-08] MEDS: CALCIUM CARBONATE 250 MG/VITAMIN D3 125 UNIT TABLET PO SCH (10:45)
[2018-12-08] MEDS: METHYLPREDNISOLONE INJ 40 MG/1 ML SDV IV SCH ×2 (10:45→22:47)
[2018-12-08] MEDS: MESALAMINE 400 MG CAPSULE.DR PO SCH ×3 (10:45→18:15)
[2018-12-08] MEDS: UMECLIDINIUM BROMIDE 62.5 MCG/DOSE IH SCH (10:46)
[2018-12-08] MEDS: CEFEPIME 2 GM/D5W RTU 2 GM/50 ML RTUPB IV SCH ×2 (10:47→22:43)
[2018-12-08] MEDS: NYSTATIN 500000 UNIT/5 ML UDCUP PO SCH ×4 (10:48→22:38)
[2018-12-08] MEDS: POTASSI CL 40 MEQ/D5-1/2NS 1L 40 MEQ/1,000 ML RTUINJ IV PRN (11:04)
[2018-12-08] MEDS ORDERED: METHYLPREDNISOLONE INJ 125 MG/2 ML SDV ONE (14:51)
[2018-12-08] MEDS ORDERED: FUROSEMIDE INJ/PF 40 MG/4 ML SDV ONE (14:51)
[2018-12-08] MEDS ORDERED: ALBUTEROL SULFATE 0.083% NEB 2.5 MG/3 ML AMPUL NEB ONE (14:52)
[2018-12-08] MEDS ORDERED: MORPHINE SULFATE 10 MG/ML INJ ONE (14:57)
[2018-12-08 15:07] LABS: ARTERIAL BLOOD BASE EXCESS 0.9 mmol/L; ARTERIAL BLOOD FIO2 15; ARTERIAL BLOOD H2CO3 1.21 mmol/L (1.05-1.35); ARTERIAL BLOOD HCO3 25.4 mmol/L (20-24); ARTERIAL BLOOD O2 SATURATION 88.1 % (94-98); ARTERIAL BLOOD PCO2 40.3 mmHg (35-45); ARTERIAL BLOOD PH 7.42 (7.35-7.45); ARTERIAL BLOOD TOTAL CO2 26.7 mmol/L (21-25)
[2018-12-08 15:13] LABS: HEMATOCRIT 33.9 % (36.0-47.0); MEAN CORPUSCULAR HEMOGLOBIN 31.7 pg (27.0-33.4); MEAN CORPUSCULAR HGB CONC 36.8 g/dL (32.0-36.0); RED BLOOD COUNT 3.93 10^6/uL (3.72-5.28); RED CELL DISTRIBUTION WIDTH 15.8 % (11.5-14.0); WHITE BLOOD COUNT 9.9 10^3/uL (4.0-10.5)
[2018-12-08 15:14] LABS: INTERNATIONAL RATION (INR) 1.22; PARTIAL THROMBOPLASTIN TIME 25.8 SEC (23.5-35.8)
[2018-12-08 15:17] LABS: ANION GAP 6 (5-19); BLOOD UREA NITROGEN 9 mg/dL (7-20); CALCIUM 7.7 mg/dL (8.4-10.2); CARBON DIOXIDE 28 mmol/L (22-30); CHLORIDE 102 mmol/L (98-107); D-DIMER 1.49 ug/mL (0.00-0.50); GLUCOSE 189 mg/dL (75-110); POTASSIUM 3.6 mmol/L (3.6-5.0)
[2018-12-08 15:18] LABS: PROTHROMBIN TIME 15.5 SEC (11.4-15.4)
--- NOTE | 2018-12-08 15:28 | RADIOLOGY REPORT (SQ) ---
EXAM DESCRIPTION: CHEST SINGLE VIEW COMPLETED DATE/TIME: 12/08/2018 3:16 pm REASON FOR STUDY: decreased o2 COMPARISON: 12/07/2018 NUMBER OF VIEWS: One view. TECHNIQUE: Single frontal radiographic image of the chest acquired. LIMITATIONS: None. FINDINGS: LUNGS AND PLEURA: Stable appearance. MEDIASTINUM AND HILAR STRUCTURES: Stable heart size and mediastinal structures. HEART AND VASCULAR STRUCTURES: Stable appearance. BONES: No acute findings. HARDWARE: Central line remains in place. OTHER: No other significant finding. IMPRESSION: STABLE APPEARANCE OF THE CHEST. TECHNICAL DOCUMENTATION: JOB ID: [id number] [employer]- All Rights Reserved Reading location - IP/workstation name: [email or web address]
[2018-12-08] MEDS ORDERED: SODIUM PHOS M BASIC D BASIC IV ONE (15:30)
[2018-12-08] MEDS ORDERED: NORMAL SALINE IV ONE (15:30)
[2018-12-08 15:48] LABS: HEMOGLOBIN 12.5 g/dL (12.0-15.5)
[2018-12-08 15:49] LABS: MEAN CORPUSCULAR VOLUME 86 fl (80-97)
[2018-12-08 15:56] LABS: ABSOLUTE LYMPHOCYTES# (MANUAL) 1.9 10^3/uL (0.5-4.7); ABSOLUTE MONOCYTES # (MANUAL) 0.1 10^3/uL (0.1-1.4); ANISOCYTOSIS SLIGHT; BAND NEUTROPHILS % (MANUAL) 4 % (3-5); BASOPHILS % (MANUAL) 0 % (0-2); EOSINOPHILS % (MANUAL) 0 % (0-6); LYMPHOCYTES % (MANUAL) 19 % (13-45); METAMYELOCYTES % (MANUAL) 2 % (0-1); MONOCYTES % (MANUAL) 1 % (3-13); PLATELET COMMENT DECREASED; SEGMENTED NEUTROPHILS % (MAN) 74 % (42-78); TOTAL CELLS COUNTED 100
[2018-12-08] MEDS ORDERED: NORMAL SALINE 250 ML with ARGATROBAN 250 MG IV PRN ×2 (15:57)
[2018-12-08 16:00] LABS: PLATELET COUNT 65 10^3/uL (150-450)
--- NOTE | 2018-12-08 16:25 | RADIOLOGY REPORT (SQ) ---
EXAM DESCRIPTION: CTA CHEST COMPLETED DATE/TIME: 12/08/2018 3:54 pm REASON FOR STUDY: Positive D-dimer COMPARISON: None. TECHNIQUE: CT scan of the chest performed using helical scanning technique with dynamic intravenous contrast injection. Images reviewed with lung, soft tissue and bone windows. Reconstructed coronal and sagittal MPR images reviewed. Additional 3 dimensional post-processing performed to develop Maximal Intensity Projection images (NC P). All images stored on PACS. All CT scanners at this facility use dose modulation, iterative reconstruction, and/or weight based d osing when appropriate to reduce radiation dose to as low as reasonably achievable (ALARA). [facility]: Dose Right [facility]: CareDose [facility]: Dose Right [facility]: Teradose 4D [facility]: Quadriserv CONTRAST TYPE AND DOSE: contrast/concentration: Isovue 350.00 mg/ml; Total Contrast Delivered: 51.0 ml; Total Saline Delivered: 80.0 ml Contrast bolus optimized for the pulmonary arteries. Not diagnostic for the aorta. RENAL FUNCTION: GFR > 60. RADIATION DOSE: CT Rad equipment meets quality standard of care and radiation dose reduction techniq ues were employed. CTDIvol: 10.6 - 15.6 mGy. DLP: 671 mGy-cm. . LIMITATIONS: Positioning. FINDINGS: LUNGS AND PLEURA: There is a small left pleural effusion. There is dependent airspace dis ease in the left lower lobe. Patchy ground-glass attenuation along the right major fissure. There i s associated bronchiectasis. AORTA AND GREAT VESSELS: No aneurysm. Contrast bolus not optimized for the aorta. HEART: No pericardial effusion. Moderate to marked coronary artery calcifications. PULMONARY ARTERIES: There are small filling defects in the left upper and lower lobe pulmonary arteri es. No central thrombus. HILAR AND MEDIASTINAL STRUCTURES: No identified masses or abnormal nodes. HARDWARE: None in the chest. UPPER ABDOMEN: No significant findings. Limited exam. THYROID AND OTHER SOFT TISSUES: No masses. No adenopathy. BONES: Nothing acute. 3D MIPS: Confirm above findings. OTHER: No other significant finding. IMPRESSION: 1. Positive for small emboli in the left upper and lower lobe pulmonary arteries. 2. Left lower lobe airspace disease and small left pleural effusion could represent infarction or pne umonia. Clinical correlation is needed. COMMENT: Quality ID # [id number]: Final reports with documentation of one or more dose reduction techniques (e.g., Automated exposure control, adjustment of the mA and/or kV according to patient size, use of iterative reconstruction technique) TECHNICAL DOCUMENTATION: JOB ID: [id number] [employer]- All Rights Reserved Reading location - IP/workstation name: [email or web address]
--- NOTE | 2018-12-08 16:34 | Progress Note ---
Provider Note Provider Note: 12/08/2018-rapid response called on patient as patient was having low oxygen saturations into the 60s 70s on nasal cannula. On arrival patient was diaphoretic, tachycardic sinus tach 130s 140s tachypneic. Patient had blood hanging third unit. Apparently patient came in for GI bleed had hemoglobin this morning 5.4. Laboratory database was drawn including CBC, CMP, a PT PTT and a d-dimer. D-dimer was positive with 1.49. CBC showed a hemoglobin of 12 at that time. CMP showed no acute findings. Patient was given 125 mg of IV Solu-Medrol as her assessment did show wheezing scattered throughout all lung walsh. She was decreased throughout does have history of smoking. Also gave patient 40 mg of IV Lasix as she had somewhat of rales in bases. A chest x-ray showed slight vascular congestion no other acute findings. I was concerned about the possibility of a PE and his d-dimer was positive had a CAT scan of the chest with PE protocol. Multiple bilateral PEs were identified. I have discussed this with Dr. Elizabeth. Patient is stable and does not require ICU transfer at this time. I have signed out to Dr. Elizabeth. I spent a total of 50 minutes of critical care time continue to monitor patient's heart rate, respiratory rate, oxygen saturations. When I left patient her heart rate was coming down nicely with BiPAP and her oxygen level had improved. Patient states she was much more comfortable after initiation of BiPAP which was 12/5 and we will titrate the oxygen off to achieve a oxygen saturation of 91 to 92%. I have notified nursing to keep BiPAP on at this time and to notify Dr. Elizabeth for further concerns.
--- NOTE | 2018-12-08 16:52 | EKG REPORT ---
SEVERITY:- DEFECTIVE ECG - SINUS TACHYCARDIA VENTRICULAR PREMATURE COMPLEX PETER, CONSIDER BIATRIAL ABNORMALITIES LOW VOLTAGE IN FRONTAL LEADS : Confirmed by: Sage Costa MD 08-Dec-2018 16:52:24
--- NOTE | 2018-12-08 17:03 | Progress Note ---
Provider Note Provider Note: While making rounds on patient's today, I stopped in to see Ms. Torres. She is a 73-year-old female with refractory ulcerative colitis. I discussed surgical intervention with her last night. Today, she has had increased work of breathing. She has been diagnosed with bilateral small pulmonary emboli. She is on BiPAP now. She appears to be breathing easily on BiPAP. There is concern for heparin-induced thrombocytopenia. Work-up is ongoing. Per the nursing staff, the patient is scheduled to start Argatroban. Will monitor closely for active, uncontrolled bleeding. The patient would be incredibly high risk for surgical intervention at this time with new onset pulmonary emboli. Consideration of transfer to a tertiary facility may be beneficial, in case she would need surgical intervention. I will continue to follow the patient closely with you.
[2018-12-08] MEDS: AMINO ACIDS 5 %/DEXTROSE 20 % 1,000 ML IV PRN (17:54)
--- NOTE | 2018-12-08 17:56 | PDOC PROGRESS REPORT ---
Subjective Progress Note for:: 12/08/18 Subjective:: Patient developed acute respiratory distress, a stat CT angiogram was done, demonstrated pulmonary embolus. She has thrombocytopenia, I suspected heparin- induced, thrombocytopenia, she was exposed to multiple heparin products for DVT prophylaxis ,due to recurrent hospital admission. The drug of choice for suspected heparin-induced thrombocytopenia is argotroban, the other problem though is she has ulcerative pancolitis with tendency to bleed, she already had lower GI bleed, she was given platelet infusion last night. She will require multiple platelet infusion, she was originally admitted for nosocomial pneumonia, she become a very complicated case for IMCU, she will need close monitoring, in intensive care unit, she will be transferred to ICU for close monitoring, she is at increased risk of complication including GI bleed plus or minus intracranial hemorrhage. I spoke to the health evaluator, she has accepted the patient in transfer to the unit. Reason For Visit: NOSOCOMIAL PNEUMONIA Physical Exam Vital Signs: Temp Pulse Resp BP Pulse Ox 97.4 F 102 H 15 100/80 94 12/08/18 16:23 12/08/18 16:23 12/08/18 16:23 12/08/18 16:23 12/08/18 16:23 Intake & Output 12/07/18 12/08/18 12/09/18 06:59 06:59 06:59 Intake Total 2183 2076 3123 Output Total 3800 3650 Balance -1617 -1574 3123 Weight 75.2 kg 74.2 kg 74.2 kg General appearance: PRESENT: no acute distress Eye exam: PRESENT: PERRLA Respiratory exam: PRESENT: symmetrical Cardiovascular exam: PRESENT: +S1, +S2 Results Laboratory Results: 12/08/18 14:45 12/08/18 14:45 12/07/18 12/07/18 12/08/18 16:50 22:10 03:25 WBC 6.4 Cancelled RBC 3.07 L Cancelled Hgb 9.9 L Cancelled Hct 28.4 L Cancelled MCV 93 Cancelled MCH 32.2 Cancelled MCHC 34.7 Cancelled RDW 16.8 H Cancelled Plt Count 74 L Cancelled Seg Neutrophils % 86.6 H Cancelled Carbonic Acid HCO3/H2CO3 Ratio ABG pH ABG pCO2 ABG pO2 ABG HCO3 ABG O2 Saturation ABG Base Excess FiO2 Sodium Potassium Chloride Carbon Dioxide Anion Gap BUN Creatinine Est GFR ( Amer) Glucose Calcium Phosphorus Prealbumin Triglycerides Blood Type O POSITIVE Antibody Screen NEGATIVE 12/08/18 12/08/18 12/08/18 03:50 04:52 08:20 WBC Cancelled 5.0 RBC Cancelled 1.70 L Hgb Cancelled 5.4 L D Hct Cancelled 16.1 L MCV Cancelled 95 MCH Cancelled 32.0 MCHC Cancelled 33.8 RDW Cancelled 17.1 H Plt Count Cancelled 91 L Seg Neutrophils % Cancelled Not Reportable Carbonic Acid HCO3/H2CO3 Ratio ABG pH ABG pCO2 ABG pO2 ABG HCO3 ABG O2 Saturation ABG Base Excess FiO2 Sodium 139.5 Potassium 3.4 L Chloride 105 Carbon Dioxide 29 Anion Gap 6 BUN 8 Creatinine 0.32 L Est GFR ( Amer) > 60 Glucose 266 H Calcium 7.2 L Phosphorus Prealbumin Triglycerides Blood Type Antibody Screen 12/08/18 12/08/18 12/08/18 08:20 14:45 14:45 WBC 9.9 RBC 3.93 Hgb 12.5 D Hct 33.9 L MCV 86 D MCH 31.7 MCHC 36.8 H RDW 15.8 H Plt Count 65 L Seg Neutrophils % Not Reportable Carbonic Acid HCO3/H2CO3 Ratio ABG pH ABG pCO2 ABG pO2 ABG HCO3 ABG O2 Saturation ABG Base Excess FiO2 Sodium 136.2 L Potassium 3.6 Chloride 102 Carbon Dioxide 28 Anion Gap 6 BUN 9 Creatinine 0.25 L Est GFR ( Amer) > 60 Glucose 189 H Calcium 7.7 L Phosphorus 1.2 L Prealbumin 10.9 L Triglycerides 114 Blood Type Antibody Screen 12/08/18 14:45 WBC RBC Hgb Hct MCV MCH MCHC RDW Plt Count Seg Neutrophils % Carbonic Acid 1.21 HCO3/H2CO3 Ratio 20:1 ABG pH 7.42 ABG pCO2 40.3 ABG pO2 53.0 L ABG HCO3 25.4 H ABG O2 Saturation 88.1 L ABG Base Excess 0.9 FiO2 15 Sodium Potassium Chloride Carbon Dioxide Anion Gap BUN Creatinine Est GFR ( Amer) Glucose Calcium Phosphorus Prealbumin Triglycerides Blood Type Antibody Screen 12/03/18 11:05 Blood Blood Culture - Final NO GROWTH IN 5 DAYS 12/03/18 10:03 Blood Blood Culture - Final NO GROWTH IN 5 DAYS 12/03/18 10:23 Catheterized Urine Urine Culture - Final Pseudomonas Aeruginosa Enterococcus Faecalis(Group D) 12/03/18 10:03 Troponin I < 0.012 Impressions: Abdomen X-Ray 12/05/18 00:00 IMPRESSION: 1. Dense opacity in the left base that could represent a combination of pleural fluid, atelectasis, and/or consolidation. 2. Nonobstructive bowel gas pattern. 3. Ahaustral appearance of the transverse colon as on the correlative CT from 11/17/2018. Correlate with clinical findings to exclude an infectious or inflammatory colitis. Chest X-Ray 12/08/18 14:55 IMPRESSION: STABLE APPEARANCE OF THE CHEST. Chest/Abdomen CTA 12/08/18 15:19 IMPRESSION: 1. Positive for small emboli in the left upper and lower lobe pulmonary arteries. 2. Left lower lobe airspace disease and small left pleural effusion could represent infarction or pneumonia. Clinical correlation is needed. Assessment & Plan - Diagnosis (1) Nosocomial pneumonia Is this a current diagnosis for this admission?: Yes Plan: Continue IV antibiotic (2) Ulcerative pancolitis Is this a current diagnosis for this admission?: Yes Plan: Patient with ulcerative colitis, she had episode of severe GI bleed, this is probably related to the thrombocytopenia, there has been a progressive decline in the platelet count, she will be transfused with platelets because of the severe GI bleed associated with low platelet count (3) Depression Qualifiers: Depression Type: major depressive disorder Major depression recurrence: recurrent Active/Remission status: currently active Major depression episode severity: severe Psychotic features: without psychotic features Qualified Co de(s): F33.2 - Major depressive disorder, recurrent severe without psychotic features Is this a current diagnosis for this admission?: Yes (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 Is this a current diagnosis for this admission?: Yes (5) Hypokalemia Is this a current diagnosis for this admission?: Yes (6) Anemia due to blood loss Is this a current diagnosis for this admission?: Yes (7) Retention of urine Is this a current diagnosis for this admission?: Yes (8) Urinary tract infection associated with catheterization of urinary tract Qualifiers: Indwelling urinary catheter type: indwelling urethral catheter Encounter t ype: initial encounter Qualified Code(s): T83.511A - Infection and inflammatory reaction due to indwelling urethral catheter, initial encounter; N39.0 - Urinary tract infection, site not specified Is this a current diagnosis for this admission?: Yes (9) Hypoalbuminemia Is this a current diagnosis for this admission?: Yes Plan: Patient started on TPN (10) Thrombocytopenia Is this a current diagnosis for this admission?: Yes Plan: The platelet count has been progressively decreasing since admission but it drop precipitously the last 24 to 48 hours,, This is probably secondary to medication unlikely to be heparin-induced thrombocytopenia typically heparin-induced thrombocytopenia, platelet count with drop 5 to 10 days after initiation of heparin,, The platelet count may decrease within 24 hours in patients with exposure to heparin within the last 100 days but heparin induced thromboc ytopenia is rarely associated with bleeding,Because of the severe bleeding patient be transfused with platelets (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
--- NOTE | 2018-12-08 18:35 | RADIOLOGY REPORT (SQ) ---
EXAM DESCRIPTION: VENOUS BILATERAL LOWER COMPLETED DATE/TIME: 12/08/2018 6:25 pm REASON FOR STUDY: lower extremity swelling COMPARISON: None. TECHNIQUE: Dynamic and static johnson scale and color images acquired of both lower extremity venous sy stems. Selected spectral images acquired with additional compression and augmentation maneuvers. Imag es stored on PACS. LIMITATIONS: None. FINDINGS: RIGHT LEG COMMON FEMORAL AND FEMORAL: Normal phasicity, compression and augmentation. No visualized echogenic m aterial on johnson scale. No defects on color images. POPLITEAL: Normal compression and augmentation. No visualized echogenic material on johnson scale. No de fects on color images. CALF VESSELS: Normal compression and augmentation. No visualized echogenic material on johnson scale. No defects on color image. GSV AND SSV: Normal compression. No visualized echogenic material on johnson scale. No defects on color images. ANY DEEP VENOUS INSUFFICIENCY: Not evaluated. ANY EVIDENCE OF POPLITEAL CYST: No. OTHER: No other significant finding. LEFT LEG COMMON FEMORAL AND FEMORAL: Common femoral vein unremarkable. There is acute thrombus in the proxima l femoral vein. Also suspect chronic changes. POPLITEAL: Normal compression and augmentation. No visualized echogenic material on johnson scale. No de fects on color images. CALF VESSELS: Normal compression and augmentation. No visualized echogenic material on johnson scale. No defects on color images. GSV AND SSV: Normal compression. No visualized echogenic material on johnson scale. No defects on color images. ANY DEEP VENOUS INSUFFICIENCY: Not evaluated. ANY EVIDENCE POPLITEAL CYST: No. OTHER: No other significant finding. IMPRESSION: Acute DVT proximal femoral vein on the left. COMMENT: The findings were sent to the Radiology Results Communication Center at 18:28 on to be communicated to a licensed caregiver. TECHNICAL DOCUMENTATION: JOB ID: [id number] [employer]- All Rights Reserved Reading location - IP/workstation name: [email or web address]
--- NOTE | 2018-12-08 18:56 | CRITICAL CARE ADMISSION REPORT ---
HPI Date:: 12/08/18 Time:: 18:11 Reason for ICU Reason:: acute hypoxic respiratory failure, acute blood loss anemia, lower GI bleed HPI: Pt is a 73 yo woman with ulcerative colitis who has had multiple hospitalizations. She was admitted on 12/03 for worsening abdominal pain, hypotension and tachycardia. Pt was found to have a severe GI bleed. She underwent sigmoidoscopy on 12/06 which showed proctocolitis. She had acute blood loss anemia with a Hg of 5.1 today. She was transfused PRBC and platelets. Today at around 1443 a rapid response was called in the IMCU. Pt has hypoxic with O2 sats in the 70s and was tachycardic. A unit of PRBC was infusing. Pt was placed on bipap, given lasix and solumedrol. Pt was not transferred to the ICU at that time. Pt had a CTA of the C/A/P. The CTA was positive for multiple small PEs in the left upper lobe and the left lower lobe, but no central PE. Because there was a concern that pt had HIT, argatroban was ordered. Transfer to the ICU was then ordered by the attending. - Diagnosis/Plan (1) Acute respiratory failure with hypoxia Is this a current diagnosis for this admission?: Yes (2) HCAP (healthcare-associated pneumonia) Is this a current diagnosis for this admission?: Yes (3) Pulmonary emboli Qualifiers: Pulmonary embolism type: multiple subsegmental (without acute cor pulmonale) Qualified Code(s): I26.94 - Multiple subsegmental pulmonary emboli without acute cor pulmonale Is this a current diagnosis for this admission?: Yes (4) Acute GI bleeding Is this a current diagnosis for this admission?: Yes (5) Ulcerative colitis Is this a current diagnosis for this admission?: Yes (6) COPD (chronic obstructive pulmonary disease) Qualifiers: COPD type: COPD with acute exacerbation Qualified Code(s): J44.1 - Chronic obstructive pulmonary disease with (acute) exacerbation Is this a current diagnosis for this admission?: Yes Past Medical History Cardiac Medical History: Reports: Hyperlipidema, Hypertension Pulmonary Medical History: Reports: Chronic Obstructive Pulmonary Disease (COPD), Pneumonia Neurological Medical History: Denies: Seizures GI Medical History: Reports: Gastroesophageal Reflux Disease, Ulcerative Colitis Past Surgical History Past Surgical History: Reports: Other - Cataract surgery Denies: Hysterectomy Social/Family History - Social History Smoking Status: Former Smoker Last Time Smoked: 02/09/2016 Frequency of Alcohol Use: Occasional Hx Recreational Drug Use: No Drugs: None Hx Prescription Drug Abuse: No - Medication/Allergies Home Medications: Albuterol Sulfate [Proair HFA Inhalation Aerosol 8.5 gm MDI] 2 puff IH Q6HP PRN 11/18/18 Aspirin [Ecotrin 81 mg EC Tablet] 81 mg PO DAILY 11/18/18 Pravastatin Sodium [Pravachol] 10 mg PO QHS 11/18/18 Prednisone [Deltasone 20 mg Tablet] 40 mg PO DAILY 11/18/18 Tiotropium [place] [Spiriva Handihaler 5 Cap/Kit (18 Mcg/Cap)] 1 cap IH DAILY 11/18/18 Megestrol Acetate [Megace Laura 400 mg/10 ml Udcup] 400 mg PO DAILY udc 11/30/18 Mesalamine [Asacol Sr 400 mg Capsule] 1,600 mg PO TID capsule. 11/30/18 Sertraline HCl [Zoloft 50 mg Tablet] 100 mg PO DAILY tablet 11/30/18 Nystatin [Mycostatin 237828 Unit/1 ml Susp 60 ml Btl] 4 ml PO QID 12/03/18 Allergies/Adverse Reactions: No Known Allergies Allergy (Verified 05/18/18 10:22) Review of Systems Review of Systems: unable to obtain due to pt being on bipap Physical Exam Vital Signs: Temp Pulse Resp BP Pulse Ox 97.4 F 102 H 15 100/80 94 12/08/18 16:23 12/08/18 16:23 12/08/18 16:23 12/08/18 16:23 12/08/18 16:23 Intake & Output 12/07/18 12/08/18 12/09/18 06:59 06:59 06:59 Intake Total 7501 8154 3120 Output Total 0118 5657 Balance -9799 -0439 3124 Weight 75.2 kg 74.2 kg 74.2 kg Weight/Height Weight 74.2 kg Height 5 ft 3 in General appearance: PRESENT: well-developed, well-nourished, other - on bipap Head exam: PRESENT: atraumatic, normocephalic Respiratory exam: PRESENT: decreased breath sounds Cardiovascular exam: PRESENT: RRR GI/Abdominal exam: PRESENT: tenderness Laboratory/Radiographs Laboratory Results: 12/08/18 14:45 12/08/18 14:45 12/07/18 12/08/18 12/08/18 22:10 03:25 03:50 WBC Cancelled Cancelled RBC Cancelled Cancelled Hgb Cancelled Cancelled Hct Cancelled Cancelled MCV Cancelled Cancelled MCH Cancelled Cancelled MCHC Cancelled Cancelled RDW Cancelled Cancelled Plt Count Cancelled Cancelled Seg Neutrophils % Cancelled Cancelled Carbonic Acid HCO3/H2CO3 Ratio ABG pH ABG pCO2 ABG pO2 ABG HCO3 ABG O2 Saturation ABG Base Excess FiO2 Sodium Potassium Chloride Carbon Dioxide Anion Gap BUN Creatinine Est GFR ( Amer) Glucose Calcium Phosphorus Prealbumin Triglycerides Blood Type O POSITIVE Antibody Screen NEGATIVE 12/08/18 12/08/18 12/08/18 04:52 08:20 08:20 WBC 5.0 RBC 1.70 L Hgb 5.4 L D Hct 16.1 L MCV 95 MCH 32.0 MCHC 33.8 RDW 17.1 H Plt Count 91 L Seg Neutrophils % Not Reportable Carbonic Acid HCO3/H2CO3 Ratio ABG pH ABG pCO2 ABG pO2 ABG HCO3 ABG O2 Saturation ABG Base Excess FiO2 Sodium 139.5 Potassium 3.4 L Chloride 105 Carbon Dioxide 29 Anion Gap 6 BUN 8 Creatinine 0.32 L Est GFR ( Amer) > 60 Glucose 266 H Calcium 7.2 L Phosphorus 1.2 L Prealbumin 10.9 L Triglycerides 114 Blood Type Antibody Screen 12/08/18 12/08/18 12/08/18 14:45 14:45 14:45 WBC 9.9 RBC 3.93 Hgb 12.5 D Hct 33.9 L MCV 86 D MCH 31.7 MCHC 36.8 H RDW 15.8 H Plt Count 65 L Seg Neutrophils % Not Reportable Carbonic Acid 1.21 HCO3/H2CO3 Ratio 20:1 ABG pH 7.42 ABG pCO2 40.3 ABG pO2 53.0 L ABG HCO3 25.4 H ABG O2 Saturation 88.1 L ABG Base Excess 0.9 FiO2 15 Sodium 136.2 L Potassium 3.6 Chloride 102 Carbon Dioxide 28 Anion Gap 6 BUN 9 Creatinine 0.25 L Est GFR ( Amer) > 60 Glucose 189 H Calcium 7.7 L Phosphorus Prealbumin Triglycerides Blood Type Antibody Screen 12/03/18 11:05 Blood Blood Culture - Final NO GROWTH IN 5 DAYS 12/03/18 10:03 Blood Blood Culture - Final NO GROWTH IN 5 DAYS 12/03/18 10:23 Catheterized Urine Urine Culture - Final Pseudomonas Aeruginosa Enterococcus Faecalis(Group D) 12/03/18 10:03 Troponin I < 0.012 Impressions: Abdomen X-Ray 12/05/18 00:00 IMPRESSION: 1. Dense opacity in the left base that could represent a combination of pleural fluid, atelectasis, and/or consolidation. 2. Nonobstructive bowel gas pattern. 3. Ahaustral appearance of the transverse colon as on the correlative CT from 11/17/2018. Correlate with clinical findings to exclude an infectious or inflammatory colitis. Chest X-Ray 12/08/18 14:55 IMPRESSION: STABLE APPEARANCE OF THE CHEST. Chest/Abdomen CTA 12/08/18 15:19 IMPRESSION: 1. Positive for small emboli in the left upper and lower lobe pulmonary art eries. 2. Left lower lobe airspace disease and small left pleural effusion could represent infarction or pneumonia. Clinical correlation is needed. Critical Time Critical Time (minutes): 60 -: The care of a critically ill patient is dynamic. This note represents a static moment in the admission process. orders and treatments may be given simulataneously and urgentl, and time is not sales representative public utilities of the treatment process. This patient requires Critical Care secondary to life threating organ or limb dysfunction. Without the need for Critical Care services, the patient is at risk for increasid mortality and morbidity. Provider Note Provider Note: Assessment: Critically ill 73 yo woman with acute hypoxic respiratory failure, HCAP, acute lower GI bleed, UC, thrombocytopenia Plan: 1. Respiratory: acute hypoxic respiratory failure. Continue bipap and monitor respiratory status closely 2. Pulmonary: small left lower and upper lobe PEs, No central PE. Given the presence of patient's active, severe GI bleed, Hg was 5 this am, anticoagulation is contraindicated. Will d/c the argatroban. HCAP. Continue vanc and cefepime. COPD, stable. Continue duonebs and steroids. Pumonary edema due to volume overload from the blood product transfusions, s/p lasix. May need additional do se. 3. CV: Heart rate and BP acceptable 4. GI/Surgery: acute lower GI bleed due to UC and proctocolitis. s/p sigmoidoscopy on 12/06 by GI. Surgery following. Continue UC meds. 5. Heme: PEs, thrombocytopenia, acute blood loss anemia. Hg is currently 12.5 s/p PRBC transfusions. Was 5 this am. Will monitor frequent h/h. Thrombocytopenia more than likely due to sepsis and medications. Platelets are 65. No further platelet transfusions. Will not start anticoagulation for the small left upper and lower lobe PEs due to the acute bleeding. LE dopplers pending. If positive for DVT will need IVC filter 6. ID: [id number]. Continue vanc and cefepime 7. Endocrine: accuchecks, SSI. Steroids for COPD 8. Nutrition: NPO. TPN 9. Prophylaxis: pharmacologic DVT prophylaxis is contraindicated in the setting of her active GI bleeding. 10. at bedside. Updated on pt condition and plan of care Critical care time= 60 min, excluding procedures
[2018-12-08] MEDS: ATORVASTATIN CALCIUM 10 MG TABLET PO SCH (22:44)
[2018-12-09] MEDS: INSULIN REG, HUMAN 100 UNIT/ML 3 ML VIAL (PYX) SUBCUT SCH ×4 (01:14→17:38)
[2018-12-09] MEDS: POTASSI CL 40 MEQ/D5-1/2NS 1L 40 MEQ/1,000 ML RTUINJ IV PRN (06:32)
--- NOTE | 2018-12-09 06:32 | EKG REPORT ---
SEVERITY:- ABNORMAL ECG - SINUS RHYTHM MULTIFORM VENTRICULAR PREMATURE COMPLEXES BIATRIAL ABNORMALITIES LOW VOLTAGE IN FRONTAL LEADS ABNORMAL T, CONSIDER ISCHEMIA, DIFFUSE LEADS : Confirmed by: Sage Costa MD 09-Dec-2018 06:31:22
[2018-12-09 06:44] LABS: HEMATOCRIT 33.8 % (36.0-47.0); HEMOGLOBIN 11.9 g/dL (12.0-15.5); MEAN CORPUSCULAR HEMOGLOBIN 29.7 pg (27.0-33.4); MEAN CORPUSCULAR HGB CONC 35.3 g/dL (32.0-36.0); MEAN CORPUSCULAR VOLUME 84 fl (80-97); RED BLOOD COUNT 4.01 10^6/uL (3.72-5.28); RED CELL DISTRIBUTION WIDTH 16.1 % (11.5-14.0); WHITE BLOOD COUNT 11.5 10^3/uL (4.0-10.5)
[2018-12-09 07:08] LABS: ANION GAP 5 (5-19); BLOOD UREA NITROGEN 13 mg/dL (7-20); CALCIUM 7.4 mg/dL (8.4-10.2); CARBON DIOXIDE 32 mmol/L (22-30); CHLORIDE 103 mmol/L (98-107); GLUCOSE 255 mg/dL (75-110); POTASSIUM 3.1 mmol/L (3.6-5.0)
[2018-12-09 07:12] LABS: ABSOLUTE LYMPHOCYTES# (MANUAL) 1.4 10^3/uL (0.5-4.7); ABSOLUTE MONOCYTES # (MANUAL) 0.1 10^3/uL (0.1-1.4); BASOPHILS % (MANUAL) 0 % (0-2); EOSINOPHILS % (MANUAL) 0 % (0-6); LYMPHOCYTES % (MANUAL) 12 % (13-45); MONOCYTES % (MANUAL) 1 % (3-13); SEGMENTED NEUTROPHILS % (MAN) 87 % (42-78); TOTAL CELLS COUNTED 100
[2018-12-09 07:16] LABS: ANISOCYTOSIS 1+; PLATELET COMMENT DECREASED; PLATELET LARGE PRESENT; TOXIC GRANULATION SLIGHT
[2018-12-09 08:02] LABS: PLATELET COUNT 50 10^3/uL (150-450)
[2018-12-09] MEDS: POTASSI CL 20 MEQ/50 ML RIDER 20 MEQ/50 ML RTUPB IV SCH ×2 (08:14→10:04)
[2018-12-09] MEDS ORDERED: FUROSEMIDE INJ/PF 20 MG/2 ML SDV ONE (08:27)
[2018-12-09] MEDS: VANCOMYCIN HCL 1,250 MG in DEXTROSE 5%-WATER 250 ML IV SCH (08:44)
[2018-12-09] MEDS ORDERED: FUROSEMIDE INJ/PF 20 MG/2 ML SDV IV ONE (09:00)
--- NOTE | 2018-12-09 09:00 | PDOC PROGRESS REPORT ---
Subjective Progress Note for:: 12/09/18 Subjective:: Critical Care Progress Note. Pt remains on bipap. No further GI bleeding. Reason For Visit: NOSOCOMIAL PNEUMONIA Physical Exam Vital Signs: Temp Pulse Resp BP Pulse Ox 99.1 F 113 H 25 H 109/88 H 98 12/08/18 19:58 12/09/18 07:58 12/09/18 08:08 12/09/18 07:16 12/09/18 08:08 Intake & Output 12/08/18 12/09/18 12/10/18 06:59 06:59 06:59 Intake Total 2076 4124 Output Total 3654 4825 140 Balance -1574 -701 -140 Weight 74.2 kg 69 kg General appearance: PRESENT: no acute distress, well-developed, well-nourished, other - on bipap Head exam: PRESENT: atraumatic, normocephalic Respiratory exam: PRESENT: decreased breath sounds Cardiovascular exam: PRESENT: RRR GI/Abdominal exam: PRESENT: soft, tenderness - non-tender, non-distended Gentrourinary exam: PRESENT: indwelling catheter Extremities exam: PRESENT: other - no edema Results Laboratory Results: 12/09/18 06:27 12/09/18 06:27 12/07/18 12/08/18 12/08/18 22:10 08:20 08:20 WBC RBC Hgb Hct MCV MCH MCHC RDW Plt Count Seg Neutrophils % Carbonic Acid HCO3/H2CO3 Ratio ABG pH ABG pCO2 ABG pO2 ABG HCO3 ABG O2 Saturation ABG Base Excess FiO2 Sodium 139.5 Potassium 3.4 L Chloride 105 Carbon Dioxide 29 Anion Gap 6 BUN 8 Creatinine 0.32 L Est GFR ( Amer) > 60 Glucose 266 H Calcium 7.2 L Phosphorus 1.2 L Magnesium Prealbumin 10.9 L Triglycerides 114 Blood Type O POSITIVE Antibody Screen NEGATIVE 12/08/18 12/08/18 12/08/18 14:45 14:45 14:45 WBC 9.9 RBC 3.93 Hgb 12.5 D Hct 33.9 L MCV 86 D MCH 31.7 MCHC 36.8 H RDW 15.8 H Plt Count 65 L Seg Neutrophils % Not Reportable Carbonic Acid 1.21 HCO3/H2CO3 Ratio 20:1 ABG pH 7.42 ABG pCO2 40.3 ABG pO2 53.0 L ABG HCO3 25.4 H ABG O2 Saturation 88.1 L ABG Base Excess 0.9 FiO2 15 Sodium 136.2 L Potassium 3.6 Chloride 102 Carbon Dioxide 28 Anion Gap 6 BUN 9 Creatinine 0.25 L Est GFR ( Amer) > 60 Glucose 189 H Calcium 7.7 L Phosphorus Magnesium Prealbumin Triglycerides Blood Type Antibody Screen 12/08/18 12/09/18 12/09/18 21:20 06:27 06:27 WBC 11.5 H RBC 4.01 Hgb 11.9 L Hct 33.8 L MCV 84 MCH 29.7 MCHC 35.3 RDW 16.1 H Plt Count 50 L Seg Neutrophils % Not Reportable Carbonic Acid HCO3/H2CO3 Ratio ABG pH ABG pCO2 ABG pO2 ABG HCO3 ABG O2 Saturation ABG Base Excess FiO2 Sodium 139.7 Potassium 3.1 L Chloride 103 Carbon Dioxide 32 H Anion Gap 5 BUN 13 Creatinine 0.28 L Est GFR ( Amer) > 60 Glucose 255 H Calcium 7.4 L Phosphorus 4.8 H D Magnesium 1.8 Prealbumin Triglycerides Blood Type Antibody Screen 12/03/18 11:05 Blood Blood Culture - Final NO GROWTH IN 5 DAYS 12/03/18 10:03 Blood Blood Culture - Final NO GROWTH IN 5 DAYS 12/03/18 10:23 Catheterized Urine Urine Culture - Final Pseudomonas Aeruginosa Enterococcus Faecalis(Group D) 12/03/18 10:03 Troponin I < 0.012 Impressions: Abdomen X-Ray 12/05/18 00:00 IMPRESSION: 1. Dense opacity in the left base that could represent a combination of pleural fluid, atelectasis, and/or consolidation. 2. Nonobstructive bowel gas pattern. 3. Ahaustral appearance of the transverse colon as on the correlative CT from 11/17/2018. Correlate with clinical findings to exclude an infectious or inflammatory colitis. Venous Doppler Study 12/08/18 00:00 IMPRESSION: Acute DVT proximal femoral vein on the left. Chest X-Ray 12/08/18 14:55 IMPRESSION: STABLE APPEARANCE OF THE CHEST. Chest/Abdomen CTA 12/08/18 15:19 IMPRESSION: 1. Positive for small emboli in the left upper and lower lobe pulmonary arteries. 2. Left lower lobe airspace disease and small left pleural effusion could represent infarction or pneumonia. Clinical correlation is needed. Assessment & Plan - Diagnosis (1) Acute respiratory failure with hypoxia Is this a current diagnosis for this admission?: Yes (2) HCAP (healthcare-associated pneumonia) Is this a current diagnosis for this admission?: Yes (3) Pulmonary emboli Qualifiers: Pulmonary embolism type: multiple subsegmental (without acute cor pulmonale) Qualified Code(s): I26.94 - Multiple subsegmental pulmonary emboli without acute cor pulmonale Is this a current diagnosis for this admission?: Yes (4) Acute GI bleeding Is this a current diagnosis for this admission?: Yes (5) Ulcerative colitis Is this a current diagnosis for this admission?: Yes (6) COPD (chronic obstructive pulmonary disease) Qualifiers: COPD type: COPD with acute exacerbation Qualified Code(s): J44.1 - Chronic obstructive pulmonary disease with (acute) exacerbation Is this a current diagnosis for this admission?: Yes - Time Time Spent with patient: 35 or more minutes Total Critical Time (Minutes): 45 Provider Note Provider Note: Assessment: Critically ill 73 yo woman with acute hypoxic respiratory failure, HCAP, acute lower GI bleed, UC, thrombocytopenia Plan: 1. Respiratory: acute hypoxic respiratory failure. Continue bipap and wean to NC as tolerated 2. Pulmonary: small left lower and upper lobe PEs, No central PE. Given the presence of patient's active, severe GI bleed, Hg was 5 yesterday anticoagulation is contraindicated. HCAP. Continue vanc and cefepime. COPD, stable. Continue duonebs and steroids. Pumonary edema due to volume overload from the blood product transfusions, will give lasix 20 mg IV one time 3. CV: Heart rate and BP acceptable 4. GI/Surgery: acute lower GI bleed due to UC and proctocolitis. s/p sigmoidoscopy on 12/06 by GI. Surgery following. Continue UC meds. 5. Heme: PEs, thrombocytopenia, acute blood loss anemia. Hg is currently 11.9. s/p 5 units PRBC. Thrombocytopenia more than likely due to sepsis and medications. Platelets are 50. No further platelet transfusions. Will not start anticoagulation for the small left upper and lower lobe PEs due to the acute bleeding. LE dopplers pending. If positive for DVT will need IVC filter 6. ID: [email or web address] due to pseudomonas and e. faecalis, POA. Continue vanc and cefepime 7. Endocrine: accuchecks, SSI. Steroids for COPD 8. Nutrition: NPO. Will d/c TPN. Resume oral diet when off bipap. 9. Prophylaxis: pharmacologic DVT prophylaxis is contraindicated in the setting of her active GI bleeding. SCDs 10. Critical care time= 45 min, excluding procedures
[2018-12-09] MEDS: CEFEPIME 2 GM/D5W RTU 2 GM/50 ML RTUPB IV SCH ×2 (10:04→21:42)
[2018-12-09] MEDS: MESALAMINE 4 GM/60 ML ENEMA PR SCH ×2 (10:06→20:12)
[2018-12-09] MEDS: UMECLIDINIUM BROMIDE 62.5 MCG/DOSE IH SCH (10:07)
[2018-12-09] MEDS: ASPIRIN 81 MG TABLET, ENT COATED PO SCH (10:08)
[2018-12-09] MEDS: MESALAMINE 400 MG CAPSULE.DR PO SCH ×3 (10:08→17:54)
[2018-12-09] MEDS: MEGESTROL ACETATE SUSP 400 MG/10 ML UDCUP PO SCH ×2 (10:11→12:35)
[2018-12-09] MEDS: NYSTATIN 500000 UNIT/5 ML UDCUP PO SCH ×4 (10:11→21:19)
[2018-12-09] MEDS: CALCIUM CARBONATE 250 MG/VITAMIN D3 125 UNIT TABLET PO SCH (10:12)
[2018-12-09] MEDS: METHYLPREDNISOLONE INJ 40 MG/1 ML SDV IV SCH ×2 (10:13→21:42)
[2018-12-09] MEDS: BETHANECHOL CHLORIDE 25 MG TABLET PO SCH ×3 (10:14→17:54)
[2018-12-09] MEDS: SERTRALINE HCL 50 MG TABLET PO SCH (10:15)
--- NOTE | 2018-12-09 10:26 | RADIOLOGY REPORT (SQ) ---
EXAM DESCRIPTION: CHEST SINGLE VIEW COMPLETED DATE/TIME: 12/09/2018 9:59 am REASON FOR STUDY: pneumonia COMPARISON: 12/08/2018 EXAM PARAMETERS: NUMBER OF VIEWS: One view. TECHNIQUE: Single frontal radiographic view of the chest acquired. RADIATION DOSE: NA LIMITATIONS: None. FINDINGS: LUNGS AND PLEURA: Stable left retrocardiac opacity and small left effusion. No pneumothor ax. Unremarkable right hemithorax. MEDIASTINUM AND HILAR STRUCTURES: No masses. Contour normal. HEART AND VASCULAR STRUCTURES: Normal heart size. Aortic atherosclerosis. BONES: No acute findings. HARDWARE: Left internal jugular central venous catheter tip overlies proximal SVC. OTHER: No other significant finding. IMPRESSION: Stable left retrocardiac opacity and small left effusion. TECHNICAL DOCUMENTATION: JOB ID: [id number]- All Rights Reserved Reading location - IP/workstation name: [email or web address]
[2018-12-09] MEDS ORDERED: ONDANSETRON HCL INJ/PF 4 MG/2 ML SDV ONE (14:27)
[2018-12-09] MEDS ORDERED: ONDANSETRON HCL INJ/PF 4 MG/2 ML SDV IV PRN (15:19)
[2018-12-09] MEDS: FENTANYL CITRATE INJ/PF 100 MCG/2 ML AMPUL IV PRN (20:12)
[2018-12-09 20:25] LABS: BLOOD UREA NITROGEN 18 mg/dL (7-20); CALCIUM 7.7 mg/dL (8.4-10.2); GLUCOSE 155 mg/dL (75-110)
[2018-12-09 20:31] LABS: ANION GAP 5 (5-19); CARBON DIOXIDE 32 mmol/L (22-30); CHLORIDE 102 mmol/L (98-107)
[2018-12-09 20:43] LABS: POTASSIUM 4.3 mmol/L (3.6-5.0)
[2018-12-09] MEDS: ATORVASTATIN CALCIUM 10 MG TABLET PO SCH (21:42)
[2018-12-10] MEDS: INSULIN REG, HUMAN 100 UNIT/ML 3 ML VIAL (PYX) SUBCUT SCH ×2 (00:20→05:55)
[2018-12-10] MEDS: FENTANYL CITRATE INJ/PF 100 MCG/2 ML AMPUL IV PRN (03:06)
[2018-12-10] MEDS: VANCOMYCIN HCL 1,250 MG in DEXTROSE 5%-WATER 250 ML IV SCH (05:55)
[2018-12-10 06:18] LABS: HEMATOCRIT 25.1 % (36.0-47.0); MEAN CORPUSCULAR HEMOGLOBIN 29.5 pg (27.0-33.4); MEAN CORPUSCULAR VOLUME 87 fl (80-97); WHITE BLOOD COUNT 11.9 10^3/uL (4.0-10.5)
[2018-12-10 06:28] LABS: HEMOGLOBIN 8.6 g/dL (12.0-15.5)
[2018-12-10 06:33] LABS: VANCOMYCIN,TROUGH 16.7 ug/mL (5.0-20.0)
[2018-12-10 06:36] LABS: BLOOD UREA NITROGEN 26 mg/dL (7-20); CALCIUM 7.3 mg/dL (8.4-10.2); CARBON DIOXIDE 31 mmol/L (22-30); GLUCOSE 154 mg/dL (75-110); POTASSIUM 4.5 mmol/L (3.6-5.0)
[2018-12-10 06:41] LABS: CHLORIDE 106 mmol/L (98-107)
[2018-12-10 06:43] LABS: ANION GAP 2 (5-19)
[2018-12-10 06:45] LABS: ABSOLUTE LYMPHOCYTES# (MANUAL) 0.4 10^3/uL (0.5-4.7); ABSOLUTE MONOCYTES # (MANUAL) 0.4 10^3/uL (0.1-1.4); BAND NEUTROPHILS % (MANUAL) 3 % (3-5); BASOPHILS % (MANUAL) 0 % (0-2); EOSINOPHILS % (MANUAL) 0 % (0-6); LYMPHOCYTES % (MANUAL) 3 % (13-45); MONOCYTES % (MANUAL) 3 % (3-13); SEGMENTED NEUTROPHILS % (MAN) 91 % (42-78); TOTAL CELLS COUNTED 100
[2018-12-10 06:47] LABS: ANISOCYTOSIS 1+; PLATELET COMMENT ADEQUATE; POLYCHROMASIA 1+
[2018-12-10 06:48] LABS: PLATELET COUNT 53 10^3/uL (150-450)
[2018-12-10] MEDS ORDERED: NORMAL SALINE 250 ML IV PRN (07:24)
[2018-12-10] MEDS ORDERED: CALCIUM GLUCONATE 1000 MG/10 ML INJ IV ONE (07:26)
--- NOTE | 2018-12-10 07:46 | PDOC PROGRESS REPORT ---
Subjective Progress Note for:: 12/09/18 Subjective:: This is a 73-year-old female with ulcerative colitis, somewhat refractory to medical therapies. The patient has had several small, bloody bowel movements overnight. She continues to require BiPAP. She denies any abdominal pain or chest pain. She reports that she is "ready for surgery". She does report shortness of breath when not wearing her BiPAP. She denies headache, fevers, chills, nausea, or vomiting. Reason For Visit: NOSOCOMIAL PNEUMONIA Physical Exam Vital Signs: Temp Pulse Resp BP Pulse Ox 98.4 F 113 H 25 H 106/78 100 12/09/18 12:00 12/09/18 07:58 12/09/18 18:10 12/09/18 15:17 12/09/18 18:10 Intake & Output 12/08/18 12/09/18 12/10/18 06:59 06:59 06:59 Intake Total 2076 4174 46 Output Total 3652 9608 1628 Balance -0538 -985 -9392 Weight 74.2 kg 69 kg 69 kg General appearance: PRESENT: mild distress - Respiratory Head exam: PRESENT: atraumatic, normocephalic Eye exam: PRESENT: EOMI, PERRLA Neck exam: ABSENT: tenderness, thyromegaly, tracheal deviation, tracheostomy Respiratory exam: PRESENT: tachypnea, other - Coarse breath sounds bilaterally. ABSENT: chest wall tenderness, unlabored Cardiovascular exam: PRESENT: tachycardia GI/Abdominal exam: PRESENT: soft. ABSENT: distended, firm, guarding, tenderness Rectal exam: PRESENT: deferred Extremities exam: ABSENT: clubbing Musculoskeletal exam: ABSENT: deformity Neurological exam: PRESENT: alert, awake, oriented to person, oriented to place, oriented to time, oriented to situation Psychiatric exam: ABSENT: agitated, anxious Focused psych exam: ABSENT: delusional Skin exam: ABSENT: cyanosis, erythema, jaundice Results Laboratory Results: 12/09/18 06:27 12/09/18 06:27 12/08/18 12/09/18 12/09/18 21:20 06:27 06:27 WBC 11.5 H RBC 4.01 Hgb 11.9 L Hct 33.8 L MCV 84 MCH 29.7 MCHC 35.3 RDW 16.1 H Plt Count 50 L Seg Neutrophils % Not Reportable Sodium 139.7 Potassium 3.1 L Chloride 103 Carbon Dioxide 32 H Anion Gap 5 BUN 13 Creatinine 0.28 L Est GFR ( Amer) > 60 Glucose 255 H Calcium 7.4 L Phosphorus 4.8 H D Magnesium 1.8 12/03/18 12/09/18 12/09/18 10:03 07:51 15:30 Troponin I < 0.012 0.406 0.331 Impressions: Abdomen X-Ray 12/05/18 00:00 IMPRESSION: 1. Dense opacity in the left base that could represent a combination of pleural fluid, atelectasis, and/or consolidation. 2. Nonobstructive bowel gas pattern. 3. Ahaustral appearance of the transverse colon as on the correlative CT from 11/17/2018. Correlate with clinical findings to exclude an infectious or inflammatory colitis. Venous Doppler Study 12/08/18 00:00 IMPRESSION: Acute DVT proximal femoral vein on the left. Chest/Abdomen CTA 12/08/18 15:19 IMPRESSION: 1. Positive for small emboli in the left upper and lower lobe pulmonary arterie s. 2. Left lower lobe airspace disease and small left pleural effusion could represent infarction or pneumonia. Clinical correlation is needed. Chest X-Ray 12/09/18 00:00 IMPRESSION: Stable left retrocardiac opacity and small left effusion. Assessment & Plan - Diagnosis (1) Ulcerative colitis Qualifiers: Ulcerative colitis location: ulcerative proctitis Digestive disease complication type: with rectal bleeding Qualified Code(s): K51.211 - Ulcerative (chronic) proctitis with rectal bleeding Is this a current diagnosis for this admission?: Yes - Time Time Spent with patient: Less than 15 minutes - Plan Summary Plan Summary: This is a 73-year-old female with ulcerative colitis that has been somewhat refractory to medical therapy. The patient now has bilateral pulmonary emboli. She is requiring BiPAP. There is a question if her symptoms are related to HIT. Ongoing supportive care via the project controller service. At this time, the patient is not a surgical candidate. If life saving surgery would be necessary, transfer to a tertiary care facility would be prudent. Will follow.
[2018-12-10] MEDS ORDERED: PHENYLEPHRINE HCL INJ/PF 10 MG/1 ML SDV ONE (07:47)
[2018-12-10] MEDS ORDERED: ETOMIDATE INJ/PF 20 MG/10 ML SDV IV ONE (07:48)
[2018-12-10] MEDS ORDERED: FENTANYL CITRATE/PF 600 MCG/60 ML BAG IV PRN (08:00)
[2018-12-10] MEDS ORDERED: RINGERS SOLUTION,LACTATED 1,000 ML IV PRN (08:04)
--- NOTE | 2018-12-10 08:07 | Progress Note ---
Provider Note Provider Note: Procedure Note: Procedure: endotracheal intubation Indication: acute respiratory failure Technique: Pt was pre-oxygenated via BVM. Pt was medicated with etomidate 20 mg. She was intubated with a size 7.5 ET tube using the Glidescope. Tube placement was confirmed with good color change on the ET CO2 detector. Pt tolerated the procedure well. Post-intubation CXR pending.
--- NOTE | 2018-12-10 08:10 | Progress Note ---
Provider Note Provider Note: Pt hemoglobin dropped to 8.6 today from 11.6. She has several large bloody BMs. Spoke with Dr. Coffman regarding transfer to a tertiary care center. I intubated the patient for transport. Have ordered 2 units of PRBC. She has been accepted at [facility] to the ICU. Dr. Shirley is the accepting physician.
[2018-12-10] MEDS ORDERED: DEXTROSE 5%-WATER 250 ML with PHENYLEPHRINE HCL 40 MG IV PRN ×2 (08:12)
[2018-12-10] MEDS ORDERED: PHARMACY COMMUNICATION ORDER MC NR (08:15)
[2018-12-10] MEDS: MAGNESIUM SULFATE/D5W 1 GM/100 ML RTUPB IV SCH ×2 (08:21→09:17)
[2018-12-10 08:23] LABS: INTERNATIONAL RATION (INR) 1.32; PROTHROMBIN TIME 16.5 SEC (11.4-15.4)
--- NOTE | 2018-12-10 08:23 | PDOC TRANSFER SUMMARY ---
General Admission Date/PCP: 12/03/18 15:00 ARTIS VENEGAS MD Transfer Date: 12/10/18 Accepting Facility: [facility] Accepting Physician: Resuscitation Status: Full Code - Transfer Diagnosis (1) Acute respiratory failure with hypoxia Is this a current diagnosis for this admission?: Yes (2) HCAP (healthcare-associated pneumonia) Is this a current diagnosis for this admission?: Yes (3) Pulmonary emboli Is this a current diagnosis for this admission?: Yes (4) Acute GI bleeding Is this a current diagnosis for this admission?: Yes (5) Ulcerative colitis Is this a current diagnosis for this admission?: Yes (6) COPD (chronic obstructive pulmonary disease) Is this a current diagnosis for this admission?: Yes (7) DVT (deep venous thrombosis) Is this a current diagnosis for this admission?: Yes - Transfer Medications Home Medications: Albuterol Sulfate [Proair HFA Inhalation Aerosol 8.5 gm MDI] 2 puff IH Q6HP PRN 11/18/18 Aspirin [Ecotrin 81 mg EC Tablet] 81 mg PO DAILY 11/18/18 Pravastatin Sodium [Pravachol] 10 mg PO QHS 11/18/18 Prednisone [Deltasone 20 mg Tablet] 40 mg PO DAILY 11/18/18 Tiotropium [place] [Spiriva Handihaler 5 Cap/Kit (18 Mcg/Cap)] 1 cap IH DAILY 11/18/18 Nystatin [Mycostatin 606311 Unit/1 ml Susp 60 ml Btl] 4 ml PO QID 12/03/18 Transfer Medications: Current Medications Albuterol (Proair Hfa Inhalation Aerosol 8.5 Gm Mdi) 2 puff IH Q6HP PRN PRN Reason: COPD Stop: 01/02/19 16:44 Bethanechol Chloride (Urecholine 25 Mg Tablet) 50 mg PO BID SANDRINE Stop: 01/03/19 17:59 Last Admin: 12/09/18 17:54 Dose: Not Given Documented by: Calcium Carbonate (Os-Dennis 250 Mg With Vitamin D 125 Units) 1 tab PO DAILY SANDRINE Stop: 01/03/19 12:29 Last Admin: 12/09/18 10:12 Dose: 1 tab Documented by: Dextrose (Dextrose Inj 50% Syringe (25 Gm/50 Ml)) 12.5 gm IV PRN PRN; Protocol PRN Reason: FOR BG 50-69 IN ALERT PATIENT Stop: 01/06/19 13:29 Dextrose (Dextrose Inj 50% Syringe (25 Gm/50 Ml)) 25 gm IV PRN PRN; Protocol PRN Reason: PER PROTOCOL Stop: 01/06/19 13:29 Fentanyl Citrate (Sublimaze Inj/Pf 100 Mcg/2 Ml Ampule) 25 mcg IV Q4HP PRN PRN Reason: PAIN Stop: 12/16/18 19:46 Last Admin: 12/10/18 03:06 Dose: 25 mcg Documented by: Glucagon (Glucagen Inj 1 Mg Vial) 1 mg IM PRN PRN; Protocol PRN Reason: EVALUATE FOR BG < 70 Stop: 01/06/19 13:29 Glucose (Glutose 40% Gel 15 Gm Tube) 15 gm PO PRN PRN; Protocol PRN Reason: FOR BG 50-69 IN ALERT PATIENT Stop: 01/06/19 13:29 Glucose (Glutose 40% Gel 15 Gm Tube) 30 gm PO PRN PRN; Protocol PRN Reason: FOR BG < 50 IN ALERT PATIENT Stop: 01/06/19 13:29 Cefepime HCl (Maxipime Rtu 2 Gm-D5w 50 Ml Premix Bag) 2 gm in 50 mls @ 100 mls/hr IV Q12 [facility] Stop: 12/10/18 16:29 Last Infusion: 12/09/18 22:19 Dose: Infused Documented by: Vancomycin HCl 1,250 mg/ (Dextrose) 250 mls @ 166.667 mls/hr IV 0600 [facility] Stop: 12/11/18 05:59 Last Admin: 12/10/18 05:55 Dose: 166.67 mls/hr, 166.67 mls/hr Documented by: Sodium Chloride (Nacl 0.9% 250 Ml Iv Soln) 250 mls @ 0 mls/hr IV CONTINUOUS PRN PRN Reason: AFTER EACH UNIT Stop: 12/11/18 07:23 Magnesium Sulfate/Dextrose (Magnesium Sulfate Rtu-D5w 1 Gm/100 Ml Premix) 1 gm in 100 mls @ 100 mls/hr IV Q1H [facility] Stop: 12/10/18 10:59 Fentanyl Citrate (Sublimaze Flute Polisher/Pf 600 Mcg/60 Ml Rtu Vial) 600 mcg in 60 mls @ 0 mls/hr IV ASDIR PRN; Protocol PRN Reason: THIS MED IS NOT "PRN" Stop: 12/17/18 07:59 Lactated Ringer's (Lactated Ringers 1000 Ml Iv Soln) 1,000 mls @ 100 mls/hr IV CONTINUOUS PRN PRN Reason: THIS MED IS NOT "PRN" Stop: 01/09/19 08:03 Insulin Human Regular (Humulin R (Pyxis) Insulin 100 Unit/Ml 3ml) 0 - 12 unit SUBCUT Q6 SANDRINE; Protocol Stop: 01/06/19 17:59 Last Admin: 12/10/18 05:55 Dose: 2 unit Documented by: Megestrol Acetate (Megace Laura 400 Mg/10 Ml Udcup) 400 mg PO DAILY [facility] Stop: 01/03/19 09:59 Last Admin: 12/09/18 12:35 Dose: 400 mg Documented by: Mesalamine (Asacol Sr 400 Mg Capsule) 1,600 mg PO TID [facility] Stop: 01/02/19 17:59 Last Admin: 12/09/18 17:54 Dose: Not Given Documented by: Mesalamine (Rowasa 4 Gm/60 Ml Enema) 4 gm AL DAILY [facility] Stop: 01/05/19 19:59 Last Admin: 12/09/18 20:12 Dose: 4 gm Documented by: Methylprednisolone Sodium Succinate (Solu-Medrol Inj/Pf 40 Mg/1 Ml Sdv) 20 mg IV Q12 SANDRINE Stop: 01/04/19 21:59 Last Admin: 12/09/18 21:42 Dose: 20 mg Documented by: Nystatin (Mycostatin 500,000 Unit/5 Ml Susp Udcup) 400,000 unit PO QID SANDRINE Stop: 12/10/18 17:59 Last Admin: 12/09/18 21:19 Dose: Not Given Documented by: Ondansetron HCl (Zofran Inj/Pf 4 Mg/2 Ml Sdv) 4 mg IV Q6HP PRN PRN Reason: FOR NAUSEA Stop: 01/08/19 15:18 Pharmacy Profile Note (Medication Communication Order) 1 each [facility] .NOTICE NR Stop: 01/09/19 08:14 Sertraline HCl (Zoloft 50 Mg Tablet) 100 mg PO DAILY [facility] Stop: 01/03/19 09:59 Last Admin: 12/09/18 10:15 Dose: Not Given Documented by: Sodium Chloride (Saline Flush 2.5 Ml Monoject Prefil Syrin) 2.5 ml IV Q8 SANDRINE Stop: 01/02/19 16:29 Last Admin: 12/10/18 05:55 Dose: 2.5 ml Documented by: Umeclidinium [place] (Incruse 62.5 Mcg Ellipta 7 Dose/Dpi) 1 inh IH DAILY SANDRINE Stop: 01/03/19 09:59 Last Admin: 12/09/18 10:07 Dose: Not Given Documented by: - Allergies Allergies/Adverse Reactions: No Known Allergies Allergy (Verified 05/18/18 10:22) - Diet/Activity Discharge Diet: Other (Comments) - NPO Discharge Activity: Bedrest Hospital Course Hospital Course: Pt is a 73 yo woman with ulcerative colitis who has had multiple hospitalizations. She was admitted on 12/03 for worsening abdominal pain, hypotension and tachycardia. Pt was found to have a severe GI bleed. She underwent sigmoidoscopy on 12/06 which showed proctocolitis. She had acute blood loss anemia with a Hg of 5.1 12/08. She was transfused PRBC and platelets. Today at around 1443 a rapid response was called in the IMCU. Pt has hypoxic with O2 sats in the 70s and was tachycardic. A unit of PRBC was infusing. Pt was placed on bipap, given lasix and solumedrol. Pt was not transferred to the ICU at that time. Pt had a CTA of the C/A/P. The CTA was positive for multiple small PEs in the left upper lobe and the left lower lobe, but no central PE. Because there was a concern that pt had HIT, argatroban was ordered. Transfer to the ICU was then ordered by the attending. Pt remained on bipap all day 12/09. Ovenight, pt had several large bloody BMs and her Hg on 12/10 had dropped to 8.6 from 11.9. I ordered 2 units of PRBC. The decision was made to transfer the pt to [facility]. I intubated the pt prior to transport. Pt's SBP dropped to the 80s and gia was started. Assessment: Critically ill 73 yo woman with acute hypoxic respiratory failure, HCAP, acute lower GI bleed, UC, thrombocytopenia, PE, LLE DVT Plan: 1. Respiratory: acute hypoxic respiratory failure. I intubated the pt today.Post intubation CXR and ABG pending. 2. Pulmonary: small left lower and upper lobe PEs, No central PE. Given the presence of patient's active, severe GI bleed, anticoagulation is contraindicated. HCAP. Continue vanc and cefepime. COPD, stable. Continue duonebs and steroids. Pumonary edema due to volume overload from the blood p roduct transfusions, s/p lasix 20 mg one time yesterday. 3. CV: Hypotension and tachycardia due to acute blood loss. Will start neosynephrine. Will order PRBC 4. GI/Surgery: acute lower GI bleed due to UC and proctocolitis. s/p sigmoidoscopy on 12/06 by GI. Bleeding has resumed. D/W Dr. Coffman and we will transfer to [facility]. 5. Heme: PEs, thrombocytopenia, acute blood loss anemia, left LE DVT. Hg has dropped to 8.6 from 11.6 and pt is actively bleeding. s/p 5 units PRBC 2 days ago. Will order 2 units of PRBC today. Thrombocytopenia more than likely due to sepsis and medications. No anticoagulation for the PEs due to acute, ongoing, lower GI bleeding. Will need an IVC filter 6. ID: [email or web address] due to pseudomonas and e. faecalis, POA. Continue vanc and cefepime 7. Endocrine: accuchecks, SSI. Steroids for COPD 8. Nutrition: NPO. 9. Dispositoin: will transfer to [facility] Critical care time= 60 min, excluding procedures Physical Exam Vital Signs: Temp Pulse Resp BP Pulse Ox 98.2 F 123 H 17 113/75 100 12/10/18 07:59 12/10/18 07:59 12/10/18 07:59 12/10/18 07:59 12/10/18 07:59 Intake & Output 12/09/18 12/10/18 12/11/18 06:59 06:59 05:59 Intake Total 4174 2138 Output Total 4836 1912 20 Balance -651 226 -20 Weight 69 kg 68.5 kg General appearance: PRESENT: well-developed, well-nourished, other - intubated Head exam: PRESENT: atraumatic, normocephalic Respiratory exam: PRESENT: decreased breath sounds Cardiovascular exam: PRESENT: tachycardia GI/Abdominal exam: PRESENT: soft Gentrourinary exam: PRESENT: indwelling catheter Neurological exam: PRESENT: other - sedated Results Laboratory Results: 12/10/18 05:49 12/10/18 05:49 12/09/18 12/10/18 12/10/18 19:53 05:49 05:49 WBC 11.9 H RBC 2.90 L Hgb 8.6 L D Hct 25.1 L MCV 87 MCH 29.5 MCHC 34.0 RDW 16.0 H Plt Count 53 L Seg Neutrophils % Not Reportable Sodium 138.5 138.5 Potassium 4.3 D 4.5 Chloride 102 106 Carbon Dioxide 32 H 31 H Anion Gap 5 2 L BUN 18 26 H Creatinine 0.37 L 0.38 L Est GFR ( Amer) > 60 > 60 Glucose 155 H 154 H Calcium 7.7 L 7.3 L Ionized Calcium [place] Magnesium 1.7 1.6 12/10/18 06:21 WBC RBC Hgb Hct MCV MCH MCHC RDW Plt Count Seg Neutrophils % Sodium Potassium Chloride Carbon Dioxide Anion Gap BUN Creatinine Est GFR ( Amer) Glucose Calcium Ionized Calcium [place] 1.08 L Magnesium 12/03/18 12/09/18 12/09/18 10:03 07:51 15:30 Troponin I < 0.012 0.406 0.331 12/09/18 19:53 Troponin I 0.306 Impressions: Abdomen X-Ray 12/05/18 00:00 IMPRESSION: 1. Dense opacity in the left base that could represent a co mbination of pleural fluid, atelectasis, and/or consolidation. 2. Nonobstructive bowel gas pattern. 3. Ahaustral appearance of the transverse colon as on the correlative CT from 11/17/2018. Correlate with clinical findings to exclude an infectious or inflammatory colitis. Venous Doppler Study 12/08/18 00:00 IMPRESSION: Acute DVT proximal femoral vein on the left. Chest/Abdomen CTA 12/08/18 15:19 IMPRESSION: 1. Positive for small emboli in the left upper and lower lobe pulmonary arteries. 2. Left lower lobe airspace disease and small left pleural effusion could represent infarction or pneumonia. Clinical correlation is needed. Chest X-Ray 12/09/18 00:00 IMPRESSION: Stable left retrocardiac opacity and small left effusion. Plan Discharge Plan: Transfer to [facility]. Dr. Fern accepting physician. Time Spent: Greater than 30 Minutes
[2018-12-10] MEDS ORDERED: RINGERS SOLUTION,LACTATED 1,000 ML IV ONE (08:29)
--- NOTE | 2018-12-10 09:02 | RADIOLOGY REPORT (SQ) ---
EXAM DESCRIPTION: CHEST SINGLE VIEW COMPLETED DATE/TIME: 12/10/2018 8:53 am REASON FOR STUDY: resp failure, s/p intubation COMPARISON: 12/09/2018. FINDINGS: AP portable upright for nasogastric tube placement. Nasogastric tube down, tip off the film in the abdomen. Left IJ line with tip appropriately to the superior vena cava. Endotracheal tube may be slightly low lying, just above the sheng. Consider pulling this back appro ximately 2 cm. Clear lungs. TECHNICAL DOCUMENTATION: JOB ID: [id number] Reading location - IP/workstation name: [email or web address]
[2018-12-10] MEDS ORDERED: CALCIUM CARBONATE 250 MG/VITAMIN D3 125 UNIT TABLET NG SCH (10:00)
[2018-12-10] MEDS ORDERED: SERTRALINE HCL 50 MG TABLET NG SCH (10:00)
[2018-12-10] MEDS ORDERED: BETHANECHOL CHLORIDE 25 MG TABLET NG SCH (10:00)
[2018-12-10] MEDS ORDERED: MESALAMINE 400 MG CAPSULE.DR PO SCH (10:00)
[2018-12-10] MEDS ORDERED: MEGESTROL ACETATE SUSP 400 MG/10 ML UDCUP NG SCH (10:00)
[2018-12-10 11:33] VITALS: BP 90/61
== END 2018-12-10 09:58 | disposition short-term general hospital (02) | DRG 385 ==
LOC: ER 09:49 → EH 15:00 → 3W 16:23 → 3S 12-06 00:04 → ICU 12-08 19:18
PROVIDERS: ADMIT Internal Medicine; ATTEND Internal Medicine
PROC: 30233N1 Transfusion of Nonautologous Red Blood Cells into Peripheral Vein, Percutaneous Approach (ICD-10-PCS; 2018-12-05)
PROC: 0DBN8ZX Excision of Sigmoid Colon, Via Natural or Artificial Opening Endoscopic, Diagnostic (ICD-10-PCS; principal; 2018-12-06)
PROC: 30233N1 Transfusion of Nonautologous Red Blood Cells into Peripheral Vein, Percutaneous Approach (ICD-10-PCS; 2018-12-06)
PROC: 02HV33Z Insertion of Infusion Device into Superior Vena Cava, Percutaneous Approach (ICD-10-PCS; 2018-12-07)
PROC: 30233N1 Transfusion of Nonautologous Red Blood Cells into Peripheral Vein, Percutaneous Approach (ICD-10-PCS; 2018-12-08)
PROC: 30233R1 Transfusion of Nonautologous Platelets into Peripheral Vein, Percutaneous Approach (ICD-10-PCS; 2018-12-08)
PROC: 5A1945Z Respiratory Ventilation, 24-96 Consecutive Hours (ICD-10-PCS; 2018-12-10)
PROC: 30233N1 Transfusion of Nonautologous Red Blood Cells into Peripheral Vein, Percutaneous Approach (ICD-10-PCS; 2018-12-10)
PROC: 0BH17EZ Insertion of Endotracheal Airway into Trachea, Via Natural or Artificial Opening (ICD-10-PCS; 2018-12-10)
DX: K51.211 Ulcerative (chronic) proctitis with rectal bleeding (principal); J18.9 Pneumonia, unspecified organism; J96.01 Acute respiratory failure with hypoxia; I26.94 Multiple subsegmental thrombotic pulmonary emboli without acute cor pulmonale; F33.2 Major depressive disorder, recurrent severe without psychotic features; E46 Unspecified protein-calorie malnutrition; T83.511A Infection and inflammatory reaction due to indwelling urethral catheter, initial encounter; D62 Acute posthemorrhagic anemia; J44.1 Chronic obstructive pulmonary disease with (acute) exacerbation; N39.0 Urinary tract infection, site not specified; E87.71 Transfusion associated circulatory overload; E88.09 Other disorders of plasma-protein metabolism, not elsewhere classified; D69.6 Thrombocytopenia, unspecified; L89.152 Pressure ulcer of sacral region, stage 2; Y95 Nosocomial condition; B95.2 Enterococcus as the cause of diseases classified elsewhere; B96.5 Pseudomonas (aeruginosa) (mallei) (pseudomallei) as the cause of diseases classified elsewhere; E78.5 Hyperlipidemia, unspecified; I10 Essential (primary) hypertension; K21.9 Gastro-esophageal reflux disease without esophagitis; E87.6 Hypokalemia; I87.8 Other specified disorders of veins; R33.9 Retention of urine, unspecified; Z79.82 Long term (current) use of aspirin; Z79.52 Long term (current) use of systemic steroids; Z87.891 Personal history of nicotine dependence
CPT/HCPCS: 36415; 36430; 51701; 71045; 71275; 74019; 80048; 80053; 80074; 80202; 81001; 82330; 82607; 82728; 82746; 82803; 82962; 83036; 83540; 83550; 83605; 83735; 84100; 84133; 84134; 84478; 84484; 85025; 85027; 85045; 85379; 85610; 85730; 86022; 86480; 86701; 86850; 86900; 86901; 86920; 87040; 87070; 87086; 87088; 87186; 87205; 87324; 87449; 88305; 88342; 93005; 93010; 93970; 94002; 94640; 94660; 96361; 96365; 96366; 96368; 99285; 99291; C1751; J0610; J0692; J0883; J1644; J1720; J1815; J1940; J1956; J2270; J2370; J2405; J2920; J2930; J3010; J3370; J3475; J3480; J3490; J7030; J7040; J7050; J7060; J7120; P9016; P9035; P9047